=== PATIENT | female | born 1985 | race Caucasian/White ===

== ENCOUNTER → 2017-12-20 12:02 | Outpatient (CLI) | payer OTHER, SELFPAY ==
[2017-12-20 12:46] LABS: Hematocrit 33.8 % (37-47); Hemoglobin 10.6 g/dl (12.0-15.0); Mean Corp Hgb Conc 31.4 g/gl (32-36); Mean Corpuscular Volume 82.8 fL (81-99); Platelet Count 223 K/mm3 (150-450); RBC Distribution Width CV 16.3 % (11.6-14.6); RBC Distribution Width SD 48.4 fl (35.1-43.9); Red Blood Count 4.08 M/mm3 (4.2-5.4); White Blood Count 7.3 K/mm3 (4.4-11.0)
[2017-12-20 12:52] LABS: Scan Indicated on CBC? Y/N NO
== END ==
PROVIDERS: Family Provider Nurse Practitioner Family; PCP Nurse Practitioner Family; Visit Provider Nurse Practitioner Family
DX: D72.819 Decreased white blood cell count, unspecified (principal)
CPT/HCPCS: 36415; 85027

== ENCOUNTER 2018-05-23 14:33 | Emergency (ER) | payer OTHER, SELFPAY ==
[2018-05-23] VITALS (8 sets, daily range): BP systolic 111–124; BP diastolic 60–69; PULSE 60–94; RESP 16–18; TEMP 36.7–36.8; O2SAT 95–99; BMI 48.6
--- NOTE | 2018-05-23 15:17 | ED.VISSUMM ---
- ER Visit Summary Date of Service: 05/23/18 Chief Complaint: Generalized weakness History of Present Illness: The patient is a 32 F who presents 2 weeks after a gastric sleeve surgery performed in [place] who presents with generalized weakness. Patient states she is having a dry mouth, headache and dark urine for the last 4 days. She is almost passed out in the shower 3 times now. She is limited to 64 ounces of liquid a day and is not even been drinking that much. She is only having pur?ed food right now, and has not had anything to eat today. She felt chilled and shaky last night and thought she had a fever. She has nausea. No chest pain, shortness of breath, URI symptoms, vomiting, diarrhea or constipation. Patient denies alcohol or tobacco use. Physical Examination: Vital signs: afebrile, hemodynamically stable, no hypoxia on room air General: well nourished, well developed, BMI of 48, in no distress Skin: warm, dry, no rash, no pallor HEENT: normocephalic and atraumatic; PERRL, EOMI, dry mucous membranes Cardiovascular: regular rate and rhythm without murmurs, no peripheral edema, 2+ pulses all distal extremities Respiratory: No increased work of breathing, lungs are clear to auscultation bilaterally, no rales, rhonchi or wheezing Abdominal: Abdomen is soft, nontender with normoactive bowel sounds, no guarding or rebound, no masses, well-healed laparoscopic incision sites but no tenderness, induration or exudate at the sites MSK: Moves all extremities, no deformities, normal strength Neuro: Awake and alert, oriented ?4. No facial droop, sensation and motor function intact and symmetric Test Results: Abnormal Lab Results 05/23/18 05/23/18 05/23/18 15:20 15:20 15:24 WBC 5.8 RBC 4.10 L Hgb 11.0 L Hct 35.1 L MCV 85.6 MCH 26.8 L MCHC 31.3 L RDW 15.9 H RDW Differential 49.0 H Plt Count 170 MPV 11.0 Immature Gran % (Auto) 0.200 Neut % (Auto) 90.1 H Lymph % (Auto) 5.7 L [place] % (Auto) 3.6 Eos % (Auto) 0.2 Baso % (Auto) 0.2 Absolute Neuts (auto) 5.2 Absolute Lymphs (auto) 0.33 L Total Counted Not Reportable Differential Comment Platelet Estimate ADEQUATE RBC Morphology NORM C+C Sodium 137 Potassium 3.8 Chloride 103 Carbon Dioxide 24.0 Anion Gap 10 BUN 10 Creatinine 1.02 Estim Creat Clear Calc 64.89 Est GFR (MDRD) Af Amer 80 Est GFR (MDRD) Non-Af 66 BUN/Creatinine Ratio 9.8 L Glucose 94 Calcium 8.5 Total Bilirubin 0.50 Direct Bilirubin 0.22 AST 16 ALT 35 Alkaline Phosphatase 57 Total Protein 6.6 Albumin 3.1 L Globulin 3.5 Albumin/Globulin Ratio 0.9 Lipase 115 Urine Color Urine Clarity Urine pH Ur Specific [place] Urine Protein Urine Glucose (UA) Urine Ketones Urine Occult Blood Urine Nitrite Urine Bilirubin Urine Urobilinogen Ur Leukocyte Esterase Urine RBC Urine WBC Ur Squamous Epith Cells Urine Bacteria Urine Mucus Urine Test POC Glucose 96 05/23/18 15:34 WBC RBC Hgb Hct MCV MCH MCHC RDW RDW Differential Plt Count MPV Immature Gran % (Auto) Neut % (Auto) Lymph % (Auto) [place] % (Auto) Eos % (Auto) Baso % (Auto) Absolute Neuts (auto) Absolute Lymphs (auto) Total Counted Differential Comment Platelet Estimate RBC Morphology Sodium Potassium Chloride Carbon Dioxide Anion Gap BUN Creatinine Estim Creat Clear Calc Est GFR (MDRD) Af Amer Est GFR (MDRD) Non-Af BUN/Creatinine Ratio Glucose Calcium Total Bilirubin Direct Bilirubin AST ALT Alkaline Phosphatase Total Protein Albumin Globulin Albumin/Globulin Ratio Lipase Urine Color Yellow Urine Clarity Cloudy Urine pH 6.0 Ur Specific [place] 1.020 Urine Protein 30 H Urine Glucose (UA) Normal Urine Ketones 50 H Urine Occult Blood 150 H Urine Nitrite Negative Urine Bilirubin 3 H Urine Urobilinogen 4 H Ur Leukocyte Esterase 25 H Urine RBC 0-5 SEEN Urine WBC 0-5 SEEN Ur Squamous Epith Cells 0-5 SEEN Urine Bacteria 0 SEEN Urine Mucus 1+ Urine Test Negative POC Glucose Clinical Impression(s) from Imaging Studies Chest X-Ray 05/23/18 16:00 IMPRESSION: Normal x-ray examination of the chest. Electronically Signed: Jarred Low MD at 16:03 EST Tel [phone], Service support , Medications Given Discontinued Medications Acetaminophen (Tylenol Liquid) 650 mg PO NOW STA Stop: 18 15:16 Last Admin: 18 15:33 Dose: 650 mg Sodium Chloride () 1,000 mls @ 1,000 mls/hr IV .Q1H ONE Stop: 18 16:12 Last Admin: 18 15:33 Dose: 1,000 mls/hr Lactated Ringer's () 1,000 mls @ 999 mls/hr IV .Q1H1M RAMANDEEP Stop: 05/23/18 18:35 Last Admin: 05/23/18 18:11 Dose: 999 mls/hr Emergency Department Course and Treatment: Patient was given 1 L of normal saline for hydration. She was given Tylenol for her headache. Labs were performed that showed no electrolyte derangements, hepatic derangements, negative. No leukocytosis. Urine was concentrated and had ketones, consistent with dehydration. Patient was given additional liter of lactated Ringer's for further hydration. At time of reevaluation she was feeling better. We discussed the importance of staying hydrated and adjusting to the smaller volume of fluid and food she is able to intake. Patient is to return if any worsening of her condition. Discharged home. Treatment Plan: [] Disposition: [] Impression: Dehydration status post gastric sleeve surgery This note was generated with [employer] dictation software. It may contain incorrect words, spelling, and punctuation that were not noted in review of the chart prior to signing ED Disposition - Plan for ED Patient: Disposition: Home or Assisted Living Chief Complaint: General Illness Instructions: ED Dehydration Referrals: Melanie Arevalo, YAMILET-C [Primary Care Provider] - 1-2 Days if not improving Additional Instructions: Please make sure to drink plenty of fluids for hydration. If you continue to have difficulty drinking fluids and eating a sufficient amount, or if you continue to have symptoms, please follow-up within 1-2 days with your primary care provider for reevaluation. Continue to follow your postoperative instructions. If you have any worsening of your condition or any new concerning symptoms, please return immediately to the emergency department for another evaluation.
[2018-05-23 15:31] LABS: Bedside Glucose 96 mg/dL (70-110)
[2018-05-23] MEDS: Acetaminophen 650 MG/20 ML UDC PO (15:33)
[2018-05-23] MEDS: 0.9% Normal Saline 1,000 ML 1000 ML IV (15:33)
[2018-05-23 15:40] LABS: Bacteria 0 SEEN /hpf (None Seen)
[2018-05-23 15:54] LABS: Absolute Lymphocyte Count 0.33 X10^3/ul (0.83-4.51); Absolute Neutrophil Count 5.2 X10^3/uL (2.0-7.7); Basophil# 0.01 X10^3/uL; Basophil% 0.2 % (0-1); Eosinophil# 0.01 X10^3/uL; Eosinophils% 0.2 % (0-5); Hematocrit 35.1 % (37-47); Lymphocyte # 0.33 X10^3/ul (4.0); Lymphocyte % 5.7 % (19-41); Mean Corp Hgb Conc 31.3 g/gl (32-36); Mean Corpuscular Hgb 26.8 pg (27.0-32.0); Mean Corpuscular Volume 85.6 fL (81-99); Monocyte# 0.21 X10^3/uL; Monocyte% 3.6 % (0-10); Neutrophil # 5.23 X10^3/uL (2.7-7.7); Neutrophil % 90.1 % (47-70); Platelet Count 170 K/mm3 (150-450); RBC Distribution Width CV 15.9 % (11.6-14.6); White Blood Count 5.8 K/mm3 (4.4-11.0)
[2018-05-23 15:56] LABS: Differential Indicated SCAN CRITERIA MET; POSITIVE COUNT NO; POSITIVE DIFFERENTIAL YES; POSITIVE MORPHOLOGY NO
--- NOTE | 2018-05-23 16:00 | RAD_ITS ---
STUDY: X-RAY CHEST REASON FOR EXAM: Female, 32 years old. Dehydration. Syncopal episode. TECHNIQUE: PA and lateral views of the chest. COMPARISON: None. FINDINGS: The lungs are clear and expanded. There is no demonstrated pleural abnormality. Normal size heart. Normal mediastinum and christina. Normal visualized pulmonary arteries. Normal visualized aortic arch and descending thoracic aorta. Normal visualized thoracic spine. Normal visualized ribs, clavicles, and shoulders. There is no demonstrated abnormality of the visualized soft tissue structures of the upper abdomen. RAD/Chest PA and Lateral IMPRESSION: Normal x-ray examination of the chest. Electronically Signed: Jarred Low MD at 16:03 EST Tel [phone], Service support ,
[2018-05-23 16:02] LABS: Color, Urine Yellow (Yellow); Glucose, Dipstick Normal (Normal); Ketone-Dipstick 50 mg/dl (Negative); Leukocyte Esterase-Dipstick 25 /ul (Negative); Nitrite-Dipstick Negative (Negative); Occult Blood-Urine 150 /ul (Negative); Protein-Dipstick 30 mg/dl (Negative); Urine Bilirubin Dipstick 3 mg/dL (Negative); Urine Clarity Cloudy (Clear); Urine Urobilinogen 4 mg/dl (Normal)
[2018-05-23 16:03] LABS: Internal QC Validated? YES +Cl - CLEAR BKGD; Pregnancy, Urine Negative Negative
[2018-05-23 16:10] LABS: ALB/GLOB Ratio 0.9 RATIO (0.9-2.4); AST(SGOT) 16 U/L (15-37); Alanine Aminotransfer ALT/SGPT 35 U/L (13-56); Albumin, Serum 3.1 g/dL (3.2-5.0); Alkaline Phosphatase 57 U/L (45-117); Anion Gap 10 (5-15); BUN 10 mg/dL (7-18); BUN/Creat Ratio 9.8 RATIO (10-20); Bilirubin, Direct 0.22 mg/dL (0.00-0.30); Calcium,Total 8.5 mg/dL (8.5-10.1); Chloride 103 mmol/L (98-107); Creatinine, Serum 1.02 mg/dL (0.55-1.02); EST Glomerular Filtration Rate 66 mL/min (>60); Est Glom Filt Rate - Afr Amer 80 mL/min (>60); Estimated Creatinine Clearance 64.89 ml/min; Globulin 3.5 g/dL (2.2-4.2); Glucose 94 mg/dL (74-106); Lipase 115 U/L (73-393); Potassium 3.8 mmol/L (3.5-5.1); Protein, Total 6.6 g/dL (6.4-8.2); Sodium Level 137 mmol/L (136-145)
[2018-05-23 16:26] LABS: Mucous, Urine 1+ /hpf (<or=2+)
[2018-05-23 16:27] LABS: Red Blood Cells-Urine 0-5 SEEN /hpf (0-5); Squamous Epithelial Cells - UA 0-5 SEEN /hpf (5-10)
[2018-05-23 16:28] LABS: White Blood Cells 0-5 SEEN /hpf (0-5)
[2018-05-23 16:34] LABS: Platelet Estimate ADEQUATE (ADEQ); Red Cell Morphology NORM C+C NORMAL (NORM C&C)
[2018-05-23] MEDS: Lactated Ringers 1,000 ML 999 ML IV (18:11)
--- NOTE | 2018-05-23 19:28 | ED.DEP ---
ED Disposition - Plan for ED Patient: Disposition: Home or Assisted Living Chief Complaint: General Illness Instructions: ED Dehydration Referrals: Melanie Arevalo, YAMILET-C [Primary Care Provider] - 1-2 Days if not improving Additional Instructions: Please make sure to drink plenty of fluids for hydration. If you continue to have difficulty drinking fluids and eating a sufficient amount, or if you continue to have symptoms, please follow-up within 1-2 days with your primary care provider for reevaluation. Continue to follow your postoperative instructions. If you have any worsening of your condition or any new concerning symptoms, please return immediately to the emergency department for another evaluation.
--- OUTSIDE RECORDS SUMMARY | 2018-07-09 21:04 | XMS RPT_ITS | Continuity of Care Document ---
:1985 Author Organization [facility] Address [address] [place] [address] Care Team Providers Name Role Phone Unavailable Primary Care Physician Unavailable Insurance Providers Payer Name Policy Number Subscriber Name Relationship [employer] [id number] ARAVIND RIVAS SELF Chief Complaint and Reason for Visit Reason for Visit LEFT EYE ITCHINESS AND DRAINAGE Problems No problem information available. Medications Current Home Medications Medication Dose Units Route Directions Days/Qty Instructions Start Date Carvedilol 25 MG BY MOUTH TWICE A DAY (Coreg) 25 MG TAB W\ MEALS FLUOXETINE HCL 40 MG BY MOUTH EVERY MORNING (PROZAC) 40 MG CAP Levothyroxine 25 MCG MISCELLANEOUS Sodium (Levo-T) 25 MCG TAB Tobramycin 1 DROP OPHTHALMIC EVERY 4 HOURS 1 x5days 03/20/18 Sulfate (Tobramycin Ophthalmic Solution) 0.3 % JOSE E Social History Problem Response Recorded Date Tobacco: N 03/20/18 Drugs: N 03/20/18 Alcohol: SOCIAL 03/20/18 Query Response Start Date Stop Date Smoking history:* Never smoker Hospital Discharge Instructions No hospital discharge instructions. Plan of Care Discharge Date 03/20/18 Disposition HOME/SENIOR LIVING/[facility](01) Condition at Discharge Good Instructions/Education Provided DI for Conjunctivitis Prescriptions See Medications Section Additional Instructions/Education medication as prescribed warm compresses on 20 minutes, off 20 minutes f/u pcp in 2-3 days or sooner if not improved Functional Status No functional status results. Allergies, Adverse Reactions, Alerts No known allergies. Immunizations No Known History of Immunizations. Vital Signs Vital Reading Collection Date/Time Result Blood Pressure 03/20/18 2:32pm 147/98 Temperature 03/20/18 2:32pm 98.2 F Temperature Source 03/20/18 2:32pm Temporal Artery Respiratory Rate 03/20/18 2:32pm 18 Pulse Rate 03/20/18 2:32pm 71 Bedside Pulse Oximetry 03/20/18 2:32pm 99 Height 03/20/18 2:32pm 5 ft 3 in Height 03/20/18 2:32pm 160.02 cm Weight 03/20/18 2:32pm 271 lb Weight 03/20/18 2:32pm 122.9 kg Body Mass Index 03/20/18 2:32pm 48.0 kg/m2 Results No known relevant diagnostic tests, laboratory data and/or discharge summary. Procedures No Known History of Procedures. Encounters Encounter Location Arrival/Admit Date Discharge/Depart Date Attending Provider Departed [facility] 03/20/18 2:08pm 03/20/18 2:43pm [facility]
--- OUTSIDE RECORDS SUMMARY | 2018-07-09 21:04 | XMS RPT_ITS ---
:1985 Author Organization OHIP Care Team Providers Name Role Phone IRINA, MELANIE Admitting Unavailable IRINA, MELANIE Attending Unavailable IRINA, MELANIE Primary Care Unavailable IRINA, MELANIE Admitting Unavailable IRINA, MELANIE Attending Unavailable IRINA, MELANIE Primary Care Unavailable IRINA, MELANIE Admitting Unavailable IRINA, MELANIE Attending Unavailable IRINA, MELANIE Primary Care Unavailable Richard Matute Attending Unavailable Irina, Melanie Primary Care Unavailable Kimberly Navas Attending Unavailable Irina, Melanie Attending Unavailable Zwingle, Melanie Referring Unavailable Zwingle, Melanie Primary Care Unavailable PROBLEMS PROBLEMS No Problem Records FoundPROCEDURES PROCEDURES No Procedure Records FoundRESULTS RESULTS EMERGENCY DEPARTMENT Observed: 05/24/2018 Status: F Source: DRAPER SUMMARY 1:26 AM [facility] REPOSITORY [facility] Medical Records Department [address] [place] [address] Emergency Department Summary 05/23/18 1517 MR#: [id number] Acct: [id number] Name: ARAVIND RIVAS Rep #: [id number] : 1985 32 From: Kimberly Navas MD PCP: ALEX Trimble Status: DEP ER - ER Visit Summary Date of Service: 05/23/18 Chief Complaint: Generalized weakness History of Present Illness: The patient is a 32 F who presents 2 weeks after a gastric sleeve surgery performed in [place] who presents with generalized weakness. Patient states she is having a dry mouth, headache and dark urine for the last 4 days. She is almost passed out in the shower 3 times now. She is limited to 64 ounces of liquid a day and is not even been drinking that much. She is only having pur ed food right now, and has not had anything to eat today. She felt chilled and shaky last night and thought she had a fever. She has nausea. No chest pain, shortness of breath, URI symptoms, vomiting, diarrhea or constipation. Patient denies alcohol or tobacco use. Physical Examination: Vital signs: afebrile, hemodynamically stable, no hypoxia on room air General: well nourished, well developed, BMI of 48, in no distress Skin: warm, dry, no rash, no pallor HEENT: normocephalic and atraumatic; PERRL, EOMI, dry mucous membranes Cardiovascular: regular rate and rhythm without murmurs, no peripheral edema, 2+ pulses all distal extremities Respiratory: No increased work of breathing, lungs are clear to auscultation bilaterally, no rales, rhonchi or wheezing Abdominal: Abdomen is soft, nontender with normoactive bowel sounds, no guarding or rebound, no masses, well-healed laparoscopic incision sites but no tenderness, induration or exudate at the sites MSK: Moves all extremities, no deformities, normal strength Neuro: Awake and alert, oriented 4. No facial droop, sensation and motor function intact and symmetric Test Results: Abnormal Lab Results WBC 5.8 RBC 4.10 L WBC RBC Hgb Hct MCV MCH MCHC RDW RDW Differential Plt Count MPV Immature Gran % (Auto) Neut % (Auto) Lymph % (Auto) Ripley % (Auto) Clinical Impression(s) from Imaging Studies Chest X-Ray 05/23/18 16:00 IMPRESSION: Normal x-ray examination of the chest. Electronically Signed: Jarred Low MD at 16:03 EST Tel [phone], Service support , Medications Given Discontinued Medications Acetaminophen (Tylenol Liquid) 650 mg PO NOW STA Stop: 05/23/18 15:16 Last Admin: 05/23/18 15:33 Dose: 650 mg Sodium Chloride () 1,000 mls @ 1,000 mls/hr IV .Q1H ONE Stop: 05/23/18 16:12 Last Admin: 05/23/18 15:33 Dose: 1,000 mls/hr Lactated Ringer's () 1,000 mls @ 999 mls/hr IV .Q1H1M RAMANDEEP Stop: 05/23/18 18:35 Last Admin: 05/23/18 18:11 Dose: 999 mls/hr Emergency Department Course and Treatment: Patient was given 1 L of normal saline for hydration. She was given Tylenol for her headache. Labs were performed that showed no electrolyte derangements, hepatic derangements, negative. No leukocytosis. Urine was concentrated and had ketones, consistent with dehydration. Patient was given additional liter of lactated Ringer's for further hydration. At time of reevaluation she was feeling better. We discussed the importance of staying hydrated and adjusting to the smaller volume of fluid and food she is able to intake. Patient is to return if any worsening of her condition. Discharged home. Treatment Plan: [] Disposition: [] Impression: Dehydration status post gastric sleeve surgery This note was generated with CPG Soft dictation software. It may contain incorrect words, spelling, and punctuation that were not noted in review of the chart prior to signing ED Disposition - Plan for ED Patient: Disposition: Home or Assisted Living Chief Complaint: General Illness Instructions: ED Dehydration Referrals: Melanie Arevalo NP-C [Primary Care Provider] - 1-2 Days if not improving Additional Instructions: Please make sure to drink plenty of fluids for hydration. If you continue to have difficulty drinking fluids and eating a sufficient amount, or if you continue to have symptoms, please follow-up within 1-2 days with your primary care provider for reevaluation. Continue to follow your postoperative instructions. If you have any worsening of your condition or any new concerning symptoms, please return immediately to the emergency department for another evaluation. What to do if you have Problems For any increased pain, shortness of breath, bleeding, nausea or vomiting, chest pain, or any unexpected problems, contact your Primary Care Provider. Call [facility] ([phone]) or report to the closest Emergency Room. Call 911 if necessary. 05/24/18 0126 <Electronically signed by Kimberly Navas MD> Date Kimberly Navas MD Cosigner Signature (If Indicated): Date CC: ALEX Arevalo DISCHARGE INSTRUCTION Observed: 05/24/2018 Status: F Source: MASHA 12:31 AM [facility] REPOSITORY [facility] Medical Records Department [address] [place] [address] Discharge Instruction 05/23/18 1928 MR#: [id number] Acct: [id number] Name: ARAVIND RIVAS Rep #: [id number] : 1985 32 From: Kimberly Navas MD PCP: ALEX Trimble Status: [facility] ER ED Disposition - Plan for ED Patient: Disposition: Home or Assisted Living Chief Complaint: General Illness Instructions: ED Dehydration Referrals: Melanie Arevalo, MILLING MACHINE SET UP OPERATOR-C [Primary Care Provider] - 1-2 Days if not improving Additional Instructions: Please make sure to drink plenty of fluids for hydration. If you continue to have difficulty drinking fluids and eating a sufficient amount, or if you continue to have symptoms, please follow-up within 1-2 days with your primary care provider for reevaluation. Continue to follow your postoperative instructions. If you have any worsening of your condition or any new concerning symptoms, please return immediately to the emergency department for another evaluation. What to do if you have Problems For any increased pain, shortness of breath, bleeding, nausea or vomiting, chest pain, or any unexpected problems, contact your Primary Care Provider. Call [facility] ([phone]) or report to the closest Emergency Room. Call 911 if necessary. 05/24/18 0031 <Electronically signed by Kimberly Navas MD> Date Kimberly Navas MD Cosigner Signature (If Indicated): Date CC: MASK DESIGNER-KAYE Arevalo URINALYSIS, COMPLETE Collected: 05/23/2018 Status: C Source: DRAPER 3:34 PM [facility] REPOSITORY Order Comment: Order Date: 05/23/18 How was Urine Obtained? CLEAN CATCH TYPE CODE TESTS RESULT OUT OF RANGE REFERENCE UNITS LAB L400.3000 Yellow COLOR Normal Yellow LAB L400.3050 Clear Normal CLARITY Cloudy LAB L400.3200 Normal mg/dl Normal GLUCOSE, UR Normal LAB L400.3300 Negative mg/dL High BILIRUBIN URINE 3 Result Comment: COLOR OF URINE MAY AFFECT DIPSTICK RESULTS. LAB L400.3400 Negative mg/dl High KETONE UR 50 LAB L400.3465 1.002-1.030 Normal SP.GR. DIPSTX 1.020 LAB L400.3550 5.0 - 8.0 pH Normal UR 6.0 LAB L400.3600 Negative mg/dl High PROT DIPSTX 30 LAB L400.3700 Normal mg/dl High UROBILI 4 LAB L400.3750 Negative Normal NITRITE UR Negative LAB L400.3780 Negative /ul High OCCULT 150 BLOOD-UR LAB L400.3800 Negative /ul High LEUK ESTERASE 25 LAB L400.4050 0-5 /hpf Normal WBC 0-5 SEEN Result Comment: AMENDED REPORT 05/23/18 3128 WBC previously reported as: 0 SEEN /hpf LAB L400.4100 0-5 /hpf Normal RBC-UA 0-5 SEEN Result Comment: AMENDED REPORT 05/23/18 6418 RBC-UA previously reported as: 0 SEEN /hpf LAB L400.4150 5-10 /hpf Normal SQUAM EPI 0-5 SEEN Result Comment: AMENDED REPORT 05/23/181626 SQUAM EPI previously reported as: 0 SEEN /hpf LAB L400.4300 None Seen /hpf Normal BACTERIA 0 SEEN LAB L400.4350 <or=2+ /hpf Normal MUCUS, URINE 1+ Result Comment: AMENDED REPORT 05/23/181625 MUCUS, URINE previously reported as: 0 SEEN /hpf Performed By: #### L400.0001, L400.7600 #### [facility] [address] [place], [address] ,URINE Collected: 05/23/2018 Status: F Source: DRAPER 3:34 PM [facility] REPOSITORY Order Comment: Order Date: 05/23/18 How was Urine Obtained? CLEAN CATCH TYPE CODE TESTS RESULT OUT OF REFERENCE UNITS RANGE LAB L400.8000 Negative Normal HCGUQUAL Negative Result Comment: Very dilute urine specimens, as indicated by a low specific gravity, may not contain environmental marketing representative levels of hCG. If is still suspected, a first morning urine specimen should be collected 48 hours later and tested. Performed By: #### L400.0001, L400.7600 #### [facility] [address] [place], [address] BEDSIDE GLUCOSE Collected: 05/23/2018 Status: F Source: DRAPER 3:24 PM [facility] REPOSITORY TYPE CODE TESTS RESULT OUT OF RANGE REFERENCE UNITS LAB L501.080 70-110 mg/dL Normal BEDSIDE GLU 96 Result Comment: MANAGEMENT OF PATIENT CARE PER NURSING PROTOCOL Performed By: #### L501.080 #### [facility] Point of Care [address] [place] [address] CBC W/DIFF, AUTOMATED Collected: 05/23/2018 Status: F Source: DRAPER 3:20 PM [facility] REPOSITORY TYPE CODE TESTS RESULT OUT OF RANGE REFERENCE UNITS LAB L100.1000 4.4-11.0 K/mm3 Normal WBC 5.8 LAB L100.1200 4.2-5.4 M/mm3 Low RBC 4.10 LAB L100.1300 12.0-15.0 g/dl Low HGB 11.0 LAB L100.1400 37-47 % Low HCT 35.1 LAB L100.1500 81-99 fL Normal MCV 85.6 LAB L100.1600 27.0-32.0 pg Low MCH 26.8 LAB L100.1700 32-36 g/gl Low MCHC 31.3 LAB L100.1810 11.6-14.6 % High RDW CV 15.9 LAB L100.1820 35.1-43.9 fl High RDW SD 49.0 LAB L100.1900 150-450 K/mm3 Normal PLT 170 LAB L100.2000 6.2-12.0 fl Normal MPV 11.0 LAB L100.2100 47-70 % High NEUT% 90.1 LAB L100.2200 19-41 % Low LY% 5.7 LAB L100.2300 0-10 % Normal MONO% 3.6 LAB L100.2400 0-5 % Normal EO% 0.2 LAB L100.2500 0-1 % Normal BASO% 0.2 LAB L100.2550 0.0-0.9 % Normal IM GRAN % 0.200 Result Comment: IG% - Immature Granulocytes (promyelocytes, myelocytes and metamyelocytes) > 1% indicates that a LEFT SHIFT is Present. LAB L100.2620 2.0-7.7 X10 3/uL Normal Absolute Neut 5.2 LAB L100.2720 0.83-4.51 X10 3/ul Low Absolute Lymph 0.33 LAB L100.4500 SMEAR Normal COMMENT Result Comment: LYMPHOPENIA NOTED LAB L100.5500 ADEQ Normal PLT ADEQUATE EST LAB L100.7000 NORM C AND NORMAL C Normal RED NORM C+C CELL MORPH Performed By: #### L100.0100 #### [facility] [address] [place], [address] LIVER PROFILE Collected: 05/23/2018 Status: F Source: MASHA 3:20 PM [facility] REPOSITORY TYPE CODE TESTS RESULT OUT OF RANGE REFERENCE UNITS LAB L501.1500 6.4-8.2 g/dL Normal T PROT 6.6 LAB L501.1800 3.2-5.0 g/dL Low ALB 3.1 LAB L501.1950 2.2-4.2 g/dL Normal GLOB 3.5 LAB L501.4100 15-37 U/L Normal AST 16 LAB L501.4305 45-117 U/L Normal ALK P 57 LAB L501.4405 13-56 U/L Normal ALT 35 LAB L501.4600 0.20-1.00 mg/dL Normal T BILI 0.50 LAB L501.4700 0.00-0.30 mg/dL Normal D BILI 0.22 Performed By: #### L500.3400, L500.4050, L501.2450 #### [facility] [address] [place], [address] COMPREHENSIVE METABOLIC Collected: 05/23/2018 Status: F Source: [facility] 3:20 PM [facility] REPOSITORY TYPE CODE TESTS RESULT OUT OF RANGE REFERENCE UNITS LAB L501.0100 74-106 mg/dL Normal GLU 94 Result Comment: Please note revised GLUCOSE reference range effective 2017. LAB L501.1000 7-18 mg/dL Normal BUN 10 LAB L501.1100 0.55-1.02 mg/dL Normal CREAT,SERUM 1.02 Result Comment: The validity of the calculated GFR AND GFRAA in patients over 70 years has not been determined. Clinical correlation is essential. LAB L501.1110 >60 mL/min Normal EST GFR 66 Result Comment: Non- GFR Calc LAB L501.1115 >60 mL/min Normal EST GFR - AA 80 Result Comment: GFR Calc LAB L501.1255 ml/min Normal Estimated CRCL 64.89 LAB L501.1300 10-20 RATIO Low BUN/CRE 9.8 LAB L501.2000 0.9-2. RATIO Normal 4 A/G 0.9 LAB L501.2200 8.5-10 mg/dL Normal .1 CA 8.5 LAB L501.5300 136-14 mmol/L Normal 5 NA 137 LAB L501.5600 3.5-5. mmol/L Normal 1 K 3.8 LAB L501.5900 98-107 mmol/L Normal CL 103 LAB L501.6100 21.0-3 mmol/L Normal 2.0 CO2 24.0 LAB L501.6200 5-15 Normal GAP 10 Performed By: #### L500.3400, L500.4050, L501.2450 #### [facility] [address] [place] [place], [address] LIPASE Collected: 05/23/2018 Status: F Source: DRAPER 3:20 PM [facility] REPOSITORY TYPE CODE TESTS RESULT OUT OF RANGE REFERENCE UNITS LAB L501.2450 73-393 U/L Normal LIPASE 115 Performed By: #### L500.3400, L500.4050, L501.2450 #### [facility] [address] [place], [address] CHEST PA AND LATERAL Observed: 05/23/2018 Status: F Source: DRAPER 3:17 PM [facility] REPOSITORY [facility] Imaging Services [address] [place] [address] Chest PA and Lateral MR#: [id number] Acct: [id number] Name: ARAVIND RIVAS Rep #: [id number] : 1985 F 32 From: Jarred Low MD PCP: ALEX Trimble Status: REG ER Study: Chest PA and Lateral Date of Exam: 05/23/18 Exam# [id number] Ordering Dr: Kimberly Navas MD STUDY: X-RAY CHEST REASON FOR EXAM: Female, 32 years old. Dehydration. Syncopal episode. TECHNIQUE: PA and lateral views of the chest. COMPARISON: None. FINDINGS: The lungs are clear and expanded. There is no demonstrated pleural abnormality. Normal size heart. Normal mediastinum and christina. Normal visualized pulmonary arteries. Normal visualized aortic arch and descending thoracic aorta. Normal visualized thoracic spine. Normal visualized ribs, clavicles, and shoulders. There is no demonstrated abnormality of the visualized soft tissue structures of the upper abdomen. RAD/Chest PA and Lateral IMPRESSION: Normal x-ray examination of the chest. Electronically Signed: Jarred Low MD at 16:03 EST Tel [phone], Service support , CC: [facility] Melanie Arevalo; Kimberly Navas MD Chef De Cuisine: Signed CBC-COMPLETE BLOOD CNT Collected: 12/20/2017 Status: F Source: DRAPER NO DIFF 12:14 PM [facility] REPOSITORY TYPE CODE TESTS RESULT OUT OF RANGE REFERENCE UNITS LAB L100.1000 4.4-11.0 K/mm3 Normal WBC 7.3 LAB L100.1200 4.2-5.4 M/mm3 Low RBC 4.08 LAB L100.1300 12.0-15.0 g/dl Low HGB 10.6 LAB L100.1400 37-47 % Low HCT 33.8 LAB L100.1500 81-99 fL Normal MCV 82.8 LAB L100.1600 27.0-32.0 pg Low MCH 26.0 LAB L100.1700 32-36 g/gl Low MCHC 31.4 LAB L100.1810 11.6-14.6 % High RDW CV 16.3 LAB L100.1820 35.1-43.9 fl High RDW SD 48.4 LAB L100.1900 150-450 K/mm3 Normal PLT 223 LAB L100.2000 6.2-12.0 fl Normal MPV 10.0 Performed By: #### L100.0500 #### [facility] [address] [place], [place], [address] ROOFER GYPSUM CYTOLOGY REPORT Observed: 12/14/2017 Status: F Source: [place] [facility] 11:28 AM [facility] REPOSITORY . Pathology Reports Accession: Collected Date/Time: Received Date/Time: Pathologist: [id number] 12/14/2017 11:28 EDT 2017 18:00 EDT DO DANTE CARVALHO Stage [facility] Cytology Report SPECIMEN: Specimen Description: Liquid Prep Reflex ASCUS Specimen: Endocervical Screening or Diagnostic: Screening RELEVANT HISTORY: LMP: 12/04/2017 [id number] SPECIMEN ADEQUACY: SATISFACTORY FOR EVALUATION ENDOCERVICAL/TRANSFORMATIONAL ZONE COMPONENT PRESENT INTERPRETATION/RESULTS: ATYPICAL SQUAMOUS CELLS OF UNDETERMINED SIGNIFICANCE ADJUNCTIVE TESTING: HIGH RISK HPV DNA TESTING ORDERED, REPORT TO FOLLOW UNDER SEPARATE COVER Electronically Signed by Pathology report verified by [facility] Screened by: GL MES Electronically signed by DANTE CARVALHO DO Sign-Out Date: 12/22/2017 11:48 Performing Lab: [facility], [address] [place] [address] States Disclaimer The Pap test is a screening test for cervical cancer. As evidenced by published data, it is subject to both inherent false negative and false positive results. Your patient's results should be interpreted in context with pertinent clinical history including gynecological examination. Performed By: #### GYCR #### [place] [address] HPV Collected: 12/14/2017 Status: F Source: [facility] 11:28 AM [facility]OUND[facility] REPOSITORY Order Comment: Order placed by AP_HPV_REFLEX rule from [id number] TYPE CODE TESTS RESULT OUT OF RANGE REFERENCE UNITS LAB BFHPV(LOINC ) HPV Cervix Source LAB HPVINT(LOIN See Interp HPVN C) Unknown HPV Interp Result Comment: High Risk HPV Typing Positive: HPV Type 16 and additional high risk types detected (other than HPV Type 18) Specimen is positive for HPV type 16 DNA and the DNA of any one of, or combination of the following high risk HPV types: 31, 33, 35, 39, 45, 51, 52, 56, 58, 59, 66, 68. HPV type 18 DNA was undetectable or below the pre-set threshold. The luis High-Risk HPV DNA Test is not intended for use as a screening device for Pap normal women under age 30 and is not intended to substitute for regular Pap screening. The luis High-Risk HPV DNA Test is designed to augment existing methods for the detection of cervical disease and should be used in conjunction with clinical information derived from other diagnostic and screening tests, physical examinations and full medical history in accordance with appropriate patient management procedures. NOTE: A negative result does not preclude the presence of HPV infection because results depend on adequate specimen collection, absence of inhibitors and sufficient DNA to be detected. See Interp HPOS Performed By: #### HPV #### [place] [address] TSH Collected: 07/20/2017 Status: F Source: [facility]ERN[facility] 4:00 PM [facility] REPOSITORY TYPE CODE TESTS RESULT OUT OF RANGE REFERENCE UNITS LAB TSH(LOINC) 0.34 - 5.60 uIU/ml TSH 3.53 Performed By: #### [id number] #### [facility],[address] [place], [place] [id number] T4-FREE (FREE Collected: 07/20/2017 Status: F Source: IS[facility] WEST THYROXINE) 4:00 PM [facility] REPOSITORY TYPE CODE TESTS RESULT OUT OF RANGE REFERENCE UNITS LAB T4 0.61 - 1.12 ng/dl FREE(LOINC) T4 FREE 0.76 Result Comment: *SPECIMENS FROM PATIENTS WHO ARE UNDERGOING BIOTIN THERAPY AND/OR INGESTING BIOTIN SUPPLEMENTS MAY HAVE FALSE HIGH RESULTS. Performed By: #### [id number] #### [place] [id number] CHLAMYDIA & GC RNA TMA Collected: 07/20/2017 Status: F Source: ISH HERNÁNDEZ [QUEST] 4:00 PM [facility] REPOSITORY TYPE CODE TESTS RESULT OUT OF REFERENCE UNITS RANGE LAB CHLAMYDIA & GC RNA TMA [QUEST](LOINC) CHLAMYDIA & GC RNA TMA [QUEST] Result Comment: _CHLAMYDIA/NEISSERIA GONORRHOEAE RNA,TMA_ CHLAMYDIA TRACHOMATIS/NEISSERIA GONORRHOEAE TMA Reported: 07/23/2017 09:21 Status=F TEST RESULT FLAG RANGE UNITS C. TRACHOMATIS RNA, TMA Not Detected Not Detected 07/23/17.rflWillaCOMPLETE.AMRR .52564-1 N. GONORRHOEAE RNA, TMA Not Detected Not Detected 07/23/17.rfl.COMPLETE.AMRR .76296-6 This test was performed using the APTIMA COMBO2(R) Assay (GEN-PROBE(R)). The analytical performance characteristics of this assay, when used to test SurePath(R) specimens have been determined by [employer] (formerly known as [employer]). Test Performed by [facility] [employer] (formerly known as [employer]) [facility], [address] [place] [address] Qamar Fong M.D., Ph.D., Director of Laboratories , CLIA [id number] Performed By: #### [id number] #### [facility],[address] [place] [address] T3, FREE Collected: 07/20/2017 Status: F Source: [facility] 4:00 PM [facility] REPOSITORY TYPE CODE TESTS RESULT OUT OF RANGE REFERENCE UNITS LAB T3, FREE(LOINC) T3, FREE Result Comment: _T3, FREE_ T3, FREE Reported: 07/23/2017 21:40 Status=F TEST RESULT FLAG RANGE UNITS T3, FREE 2.6 2.3-4.2 pg/mL 07/23/17.2153.rfl.COMPLETE.AMRR .3051-0 Test Performed by [facility] [employer] (formerly known as [employer]) [facility], [address] [place] [address] Qamar Fong M.D., Ph.D., Director of Laboratories , CLIA [id number] Performed By: #### [id number] #### [facility],[address] [place] [id number] THYROID PEROXIDASE AB Collected: 07/20/2017 Status: F [facility] 4[facility]00 PM [facility] REPOSITORY TYPE CODE TESTS RESULT OUT OF REFERENCE UNITS RANGE LAB THYROID PEROXIDASE AB [QUEST](LOINC) THYROID PEROXIDASE AB [QUEST] Result Comment: _THYROID PEROXIDASE AB_ THYROID PEROXIDASE ANTIBODIES Reported: 07/24/2017 05:59 Status=F TEST RESULT FLAG RANGE UNITS THYROID PEROXIDASE ABS <1 <9 IU/mL 07/24/17.0611.rfl.COMPLETE.AMRR .8099-4 Test Performed by [facility], [facility], [address] [place] [address] Qamar Fong M.D., Ph.D., Director of [employer] , [facility] [id number] Performed By: #### [id number] #### [facility],[address] [place], [place] [id number] ALLERGIES ALLERGIES DATE TYPE / CODE NAME / CODE REACTION SEVERITY SOURCE 05/23/2018 Drug No Known Unknown [facility] Allergy/4160 Allergies/F0 Hospital Repository [address]234(SNOMED [id number](RXN CT) ORM) 03/20/2018 Drug NO KNOWN Unknown [facility] Allergy/4160 ALLERGY/NKA( [facility] [address](SNOMED RXNORM) Repository CT) ENCOUNTERS ENCOUNTERS ADMIT/DISCHARGE ACCOUNT ADMITTING ENCOUNTER LOCATION SOURCE NUMBER CLASS 05/23/2018/05/23/20 [id number] Emergency [place] [address] 9 [facility] ing:ED Repository 03/20/2018/03/20/20 [id number] Emergency [address] g:EX Repository 03/06/2018 [id number] IRINA, [facility] Repository 12/20/2017 [id number] Ambulatory [facility] ing:LAB.FUTUR Repository E 12/14/2017/12/15/19 [id number] IRINA, [address] Repository 07/20/2017/07/20/19 [id number] IRINA, [address] Repository PAYERS PAYERS ENCOUNTER GUARANTOR PAYER SUBSCRIBER SOURCE 05/23/2018September N [facility] Insurance:MEDICAL LEESONDOB: [facility] [id number] Repository [address] [place] [address] Number: [id number]: 330 [id number] [phone] (HP) Date:6836-09-55[place] [address] [place] [id number]: 05/23/2018 [facility]SELF PAY Hospital INSURANCEPolicy Repository Number: Effective Date:2018-05-23 03/20/2018 ARAVIND N [id number] Insurance:MEDICAL LEESONDOB: [facility] [id number] [facility]: [facility] Repository [address] [place] [address] [id number] [place], [address]Dfx: [phone]) Date:0613-08-19[place] [address] [phone] (HP) [place], [place] [address]GL: 03/06/2018September N Primary SEPTEMBER N [facility] LEESONDOB: Insurance:MEDICAL LEESONDOB: [facility] [id number] [facility] [id number] Repository [place] OUTPATIENTPolicy E [address] RDW[place] Wi Number: [address], [id number]: [phone]) [id number] [place] [phone] (HP) Date:Plan Name: 12/20/2017September N Primary SEPTEMBER N [facility]4465 Insurance:MEDICAL LEESONDOB: [facility] RDAPT [facility] [id number] Repository JORGE [place] Number: [id number]: [phone] [id number] [phone] (HP) Date:[id number] [address]AL: 12/20/2017 [facility] INSURANCEPoly Repository Number: Effective Date:2017-12-19 12/14/2017September N Primary SEPTEMBER N Ish RIVASDOB: Insurance:MEDICAL LEESONDOB: [facility] E [facility] [id number] [facility]ository [facility] [address] Number: [place] [id number] [place] [id number]: Date:Plan Name: (HP) 07/20/2017September N Primary SEPTEMBER N Ish RIVASDOB: Insurance:MEDICAL LEESONDOB: [facility] E [facility] [id number] Repository [facility] [address] Number: [id number], [place] [id number] [place] [id number]: Date:Plan Name: (HP)
== END 2018-05-23 19:48 | disposition home or self-care (01) ==
PROVIDERS: Emergency Provider Emergency Medicine; Family Provider Nurse Practitioner Family; PCP Nurse Practitioner Family
DX: E86.0 Dehydration (principal); Z98.84 Bariatric surgery status; E66.9 Obesity, unspecified; Z79.899 Other long term (current) drug therapy
CPT/HCPCS: 71046; 80053; 80076; 81001; 81025; 82962; 83690; 85025; 96360; 96361; 99284; J7030; A4216

== ENCOUNTER → 2018-07-30 16:16 | Outpatient (CLI) | payer OTHER, SELFPAY ==
[2018-05-23 14:39] VITALS: BMI 48.6
[2018-07-30 18:01] LABS: hCG Titer Quant., Serum 15536 mIU/mL (<9 non-preg)
== END ==
PROVIDERS: Family Provider Nurse Practitioner Family; PCP Nurse Practitioner Family; Visit Provider Obstetrics & Gynecology
DX: N91.1 Secondary amenorrhea (principal)
CPT/HCPCS: 36415; 84702

== ENCOUNTER → 2018-08-17 15:05 | Outpatient (CLI) | payer OTHER, SELFPAY ==
[2018-05-23 14:39] VITALS: BMI 48.6
[2018-08-17 15:36] LABS: Color, Urine Yellow (Yellow); Glucose, Dipstick Normal (Normal); Ketone-Dipstick 5 mg/dl (Negative); Leukocyte Esterase-Dipstick 100 /ul (Negative); Nitrite-Dipstick Positive (Negative); Occult Blood-Urine 25 /ul (Negative); Protein-Dipstick 30 mg/dl (Negative); Urine Clarity Sl. Cloudy (Clear); Urine Urobilinogen 1 mg/dl (Normal)
[2018-08-17 15:37] LABS: Absolute Lymphocyte Count 1.18 X10^3/ul (0.83-4.51); Absolute Neutrophil Count 7.8 X10^3/uL (2.0-7.7); Basophil# 0.01 X10^3/uL; Basophil% 0.1 % (0-1); Eosinophil# 0.08 X10^3/uL; Eosinophils% 0.8 % (0-5); Hematocrit 40.8 % (37-47); Hemoglobin 12.8 g/dl (12.0-15.0); Lymphocyte # 1.18 X10^3/ul (4.0); Lymphocyte % 12.5 % (19-41); Mean Corp Hgb Conc 31.4 g/gl (32-36); Mean Corpuscular Hgb 26.9 pg (27.0-32.0); Mean Corpuscular Volume 85.7 fL (81-99); Mean Platelet Vol. 11.6 fl (6.2-12.0); Monocyte# 0.41 X10^3/uL; Monocyte% 4.3 % (0-10); Neutrophil # 7.77 X10^3/uL (2.7-7.7); Neutrophil % 82.1 % (47-70); Platelet Count 221 K/mm3 (150-450); RBC Distribution Width CV 16.5 % (11.6-14.6); RBC Distribution Width SD 51.7 fl (35.1-43.9); Red Blood Count 4.76 M/mm3 (4.2-5.4); White Blood Count 9.5 K/mm3 (4.4-11.0)
[2018-08-17 15:39] LABS: Urine Bilirubin Dipstick 1 mg/dL (Negative)
[2018-08-17 15:45] LABS: POSITIVE COUNT NO; POSITIVE DIFFERENTIAL NO; POSITIVE MORPHOLOGY NO
[2018-08-17 16:19] LABS: Ferritin 35 ng/mL (8-252); Iron 46 ug/dL (50-170); Iron Binding Capacity,Total 325 ug/dL (250-450); Thyroid Stim Hormone (TSH) 2.35 uIU/mL (0.358-3.74)
[2018-08-17 16:59] LABS: HIV - WCH Non-Reactive (Nonreactive); Rubella IgG 87.6 IU/mL; Vitamin B12 818 pg/mL (211-911); Vitamin D,25 Hydroxy 33.6 ng/mL (29.95-100.01)
[2018-08-17 17:16] LABS: Amphetamine Urine VISTA NEGATIVE (<1000 ng/mL); Barbiturate Urine VISTA NEGATIVE (< 200 ng/mL); Benzodiazepine Urine VISTA NEGATIVE (< 200 ng/mL); Chlamydia Trachomatis by PCR Negative (Negative); Cocaine Urine VISTA NEGATIVE (< 300 ng/mL); Ecstacy Urine VISTA NEGATIVE (< 500 ng/mL); Methadone Urine VISTA NEGATIVE (< 300 ng/mL); Neisserai gonorrhoeae by PCR Negative (Negative); PCP Urine VISTA NEGATIVE (< 25 ng/mL); Probe Check PASS; Sample Adequacy Control PASS; Specimen Processing Control PASS; THC Urine VISTA NEGATIVE (< 50 ng/mL); Vista UDS pH Range 7
[2018-08-20 09:04] LABS: HEPATITIS B SURFACE AG Negative (Negative); Hep C Antibodies <0.1 s/co ratio (0.0-0.9)
[2018-08-23 20:17] LABS: Prenatal RPR NONREACTIVE (NONREACTIVE)
== END ==
LOC: WOBLAB 15:05
PROVIDERS: Family Provider Nurse Practitioner Family; PCP Nurse Practitioner Family; Visit Provider Obstetrics & Gynecology
DX: Z11.3 Encounter for screening for infections with a predominantly sexual mode of transmission (principal); O99.840 Bariatric surgery status complicating pregnancy, unspecified trimester; Z3A.00 Weeks of gestation of pregnancy not specified
CPT/HCPCS: 36415; 80307; 81002; 82306; 82607; 82728; 83540; 83550; 84443; 85025; 86703; 86762; 86803; 87340; 87491; 87591

== ENCOUNTER → 2018-09-11 15:09 | Outpatient (CLI) | payer OTHER, SELFPAY ==
[2018-05-23 14:39] VITALS: BMI 48.6
--- NOTE | 2018-09-11 | CER_PTH ---
PATIENT: ROB,SEPTEMBER N LOC: DAVIE U#:[id number] AGE/SX: 39/F ROOM: RE09/11/[address]: Dr. Lisa Fong MD : 1985 BED: DIS: SPEC #: [id number] RECD: 09/11/18 15:41 STATUS: KAVITA HEIKE #: [id number] MELITA: 09/11/18 00:[address]: Lisa Neumann DEPT: SURGICAL PATHOLOGY RECD BY: Jeronimo Mead ENTERED: 09/12/18 13:01 SP TYPE: CERV OTHR DR: Melanie Arevalo, GUN FITTER-C Tissues: A - Uterine cervix, NOS B - Uterine cervix, NOS Procedures: Surgery Specimen Level IV HEADER OPERATION: Colposcopy PRE-OP DIAGNOSIS: ASCUS, positive HPV, pap 12/2017, LMP 06/30/18 TISSUE SUBMITTED: A - Cervical biopsy 12 o'clock, B - Cervical biopsy 7 o'clock MICROSCOPIC DIAGNOSIS A. 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 Acute and chronic inflammation and decidual changes. See comment. B. Cervix, 7 o'clock, biopsy: Fragments of endocervical mucosa with acute and chronic inflammation and focal minimal decidual changes. Negative for dysplasia. SJ:rg 09/13/18 COMMENT A. Immunohistochemistry ([id number]) for surrogate HPV marker (p16) supports the above diagnosis. Case has been reviewed in consultation with Dr. Valle who concurs with the above diagnosis. IDC:CE MICROSCOPIC DESCRIPTION Slides are reviewed. GROSS DESCRIPTION A - Received in fixative is one container labeled with the patient's name and designated cervical biopsy 12 o'clock. The specimen consists of multiple irregular fragments of light pedersen soft tissue that in aggregate measure 0.5 x 0.4 x 0.1 cm. The specimen is totally submitted in one cassette. B - Received in fixative is one container labeled with the patient's name and designated cervical biopsy 7 o'clock. The specimen consists of multiple irregular fragments of light pedersen soft tissue that in aggregate measure 0.6 x 0.4 x 0.1 cm. The specimen is totally submitted in one cassette. / CELY:rhona 09/12/18 TC:5 CPT: 08038 x2
--- NOTE | 2018-09-11 | IMM_PTH ---
PATIENT: ROB,SEPTEMBER N LOC: DAVIE U#:[id number] AGE/SX: 39/F ROOM: RE09/11/[address]: Dr. Lisa Fong MD : 1985 BED: DIS: SPEC #: [id number] RECD: 09/13/18 10:10 STATUS: KAVITA BURROUGHS #: [id number] MELITA: 09/11/18 00:[address]: Lisa Neumann DEPT: IMMUNOHISTOCHEMISTRY RECD BY: Lina Bland ENTERED: 09/13/18 10:17 SP TYPE: IMMUNO OTHR DR: Melanie Arevalo, BORDER PATROL AGENT-C Tissues: A - Uterine cervix, NOS Procedures: p16 (initial) KI-67 (add) PHYSICIAN & INSTITUTION [place] [address] SPECIMEN INFORMATION: Tissue Source: A - Cervical biopsy 12 o'clock Clinical Info: ASCUS, positive HPV Specimen Number: [id number] CPT code: 20563, 14633 METHODOLOGY: Deparaffinized sections of prefer/formalin-fixed tissue or PAP/DQ stained slides are incubated with monoclonal/polyclonal antibodies/oligonucleotide probes. Localization is made via biotin free immunoperoxidase method. Appropriate controls are performed and reacted as expected. Results on target cell population are indicated in the following table: RESULTS: ANTIBODY / CLONE RESULT Block A P16 (E6H4) positive, focal and patchy Ki-67 (30-9) positive, low These tests were developed and their performance characteristics determined by [facility]. They may not have been cleared or approved by the U.S. Food and Drug Administration. The FDA has determined that such clearance or approval is not necessary. INTERPRETATION: A. Cervix at 12 o'clock, biopsy: Focal mild squamous dysplasia. SJ:rhona 09/13/18 Case has been reviewed in consultation with Dr. Valle who concurs with the above diagnosis. IDC:CE
== END ==
PROVIDERS: PCP Nurse Practitioner Family; Visit Provider Obstetrics & Gynecology
DX: R87.610 Atypical squamous cells of undetermined significance on cytologic smear of cervix (ASC-US) (principal); R87.810 Cervical high risk human papillomavirus (HPV) DNA test positive
CPT/HCPCS: 88305; 88341; 88342

== ENCOUNTER → 2018-11-12 | Outpatient (CLI) | payer MEDICAID, SELFPAY ==
[2018-05-23 14:39] VITALS: BMI 48.6
--- NOTE | 2018-11-12 09:07 | US_ITS ---
STUDY: ABDOMINAL ULTRASOUND - RIGHT UPPER QUADRANT REASON FOR VISIT: Female, 32 years old. Right upper quadrant pain TECHNIQUE: Ultrasound evaluation of the right upper quadrant was performed with real-time and static maurer-scale imaging. TECHNICAL QUALITY: Adequate. COMPARISON: None. FINDINGS: Liver: The liver measures 14.3 cm. There is normal echogenicity of the liver. The bile ducts are within normal limits. There is hepatic color flow. The direction of portal flow is hepatopetal. There is no demonstrated mass lesion. Gallbladder: Normal distended gallbladder. The gallbladder wall measures 2.8 mm. There is a negative sonographic Mancera's sign. There is no pericholecystic fluid. There are multiple gallstones with posterior acoustic shadowing and echogenic sludge.. Common Bile Duct (C.B.D.): The common bile duct measures 4 mm. Pancreas: Normal size of the head, body and tail of the pancreas. There is normal echogenicity of the pancreas. There is no demonstrated pancreatic mass or cyst. Right Kidney: Normal size of the right kidney. The right kidney measures 10 cm. Normal renal cortex. The right cortex measures 1.5 cm. There is no demonstrated renal mass or cyst. There is no right hydronephrosis. US/Gallbladder IMPRESSION: Multiple gallstones and echogenic sludge Negative Mancera's sign, no wall thickening or pericholecystic fluid Electronically Signed: Sree Gutierrez, at 18:05 EDT Tel , Service support ,
== END | disposition home or self-care (01) ==
LOC: US 09:03
PROVIDERS: Family Provider Nurse Practitioner Family; PCP Nurse Practitioner Family; Referring Provider Obstetrics & Gynecology; Visit Provider Obstetrics & Gynecology
DX: Z34.82 Encounter for supervision of other normal pregnancy, second trimester (principal); R10.11 Right upper quadrant pain
CPT/HCPCS: 76705

== ENCOUNTER → 2018-12-24 | Outpatient (CLI) | payer MEDICAID, SELFPAY ==
[2018-05-23 14:39] VITALS: BMI 48.6
[2018-12-24 16:23] LABS: Hematocrit 33.3 % (37-47); Mean Corpuscular Hgb 28.7 pg (27.0-32.0); Mean Corpuscular Volume 86.9 fL (81-99); Mean Platelet Vol. 11.2 fl (6.2-12.0); Platelet Count 187 K/mm3 (150-450); RBC Distribution Width CV 13.5 % (11.6-14.6); RBC Distribution Width SD 41.4 fl (35.1-43.9); Red Blood Count 3.83 M/mm3 (4.2-5.4); White Blood Count 8.9 K/mm3 (4.4-11.0)
[2018-12-24 16:47] LABS: Scan Indicated on CBC? Y/N NO
[2018-12-24 16:52] LABS: Hemoglobin A1c 5.1 % (4.2-6.3)
== END | disposition home or self-care (01) ==
LOC: WOBLAB 14:59
PROVIDERS: Visit Provider Obstetrics & Gynecology
DX: O26.892 Other specified pregnancy related conditions, second trimester (principal); R11.2 Nausea with vomiting, unspecified; Z3A.00 Weeks of gestation of pregnancy not specified
CPT/HCPCS: 36415; 83036; 85027

== ENCOUNTER 2019-01-31 03:28 | Outpatient (CLI) | payer MEDICAID, SELFPAY ==
[2018-05-23 14:39] VITALS: BMI 48.6
[2019-01-31 04:24] VITALS: BMI 38.2
[2019-01-31] MEDS: Dextrose 5%-Lactated Ringers 1,000 ML 125 ML IV ×2 (04:29→12:55)
[2019-01-31 04:43] LABS: Mucous, Urine 0 SEEN /hpf (<or=2+)
[2019-01-31 04:45] LABS: Absolute Lymphocyte Count 1.36 X10^3/uL (0.83-4.51); Absolute Neutrophil Count 6.6 X10^3/uL (2.0-7.7); Basophil# 0.01 X10^3/uL; Basophil% 0.1 % (0-1); Eosinophil# 0.09 X10^3/uL; Eosinophils% 1.1 % (0-5); Hematocrit 31.4 % (37-47); Lymphocyte # 1.36 X10^3/ul (4.0); Lymphocyte % 15.9 % (19-41); Mean Corp Hgb Conc 31.8 g/dL (32-36); Mean Corpuscular Hgb 28.2 pg (27.0-32.0); Mean Corpuscular Volume 88.7 fL (81-99); Mean Platelet Vol. 11.1 fl (6.2-12.0); Monocyte# 0.42 X10^3/uL; Monocyte% 4.9 % (0-10); NRBC Flagged by Analyzer 0 % (0-5); Neutrophil # 6.63 X10^3/uL (2.7-7.7); Neutrophil % 77.6 % (47-70); Platelet Count 152 K/mm3 (150-450); RBC Distribution Width CV 13.3 % (11.6-14.6); RBC Distribution Width SD 43.4 fl (35.1-43.9); Red Blood Count 3.54 M/mm3 (4.2-5.4); White Blood Count 8.5 K/mm3 (4.4-11.0)
[2019-01-31 04:56] LABS: Color, Urine Yellow (Yellow); Glucose, Dipstick Normal (Normal); Ketone-Dipstick Negative (Negative); Leukocyte Esterase-Dipstick 500 /ul (Negative); Nitrite-Dipstick Negative (Negative); Occult Blood-Urine 10 /ul (Negative); Protein-Dipstick Negative (Negative); Urine Bilirubin Dipstick Negative (Negative); Urine Clarity Sl. Cloudy (Clear); Urine Urobilinogen Normal (Normal)
[2019-01-31 05:02] LABS: Bacteria 1+ /hpf (None Seen); Red Blood Cells-Urine 0-5 SEEN /hpf (0-5); White Blood Cells 10-25 SEEN /hpf (0-5)
[2019-01-31 05:03] LABS: Squamous Epithelial Cells - UA 10-25 SEEN /hpf (5-10)
[2019-01-31 05:06] LABS: AST(SGOT) 19 U/L (15-37); Alanine Aminotransfer ALT/SGPT 15 U/L (13-56); Albumin, Serum 2.2 g/dL (3.2-5.0); Alkaline Phosphatase 117 U/L (45-117); Bilirubin, Direct 0.16 mg/dL (0.00-0.30); Globulin 3.8 g/dL (2.2-4.2)
[2019-01-31] MEDS: Cefazolin 1 GM/50 ML BAG IV (05:30)
[2019-01-31] MEDS: 0.9% Saline Lock 10 ML Syringe IV ×5 (05:33→06:31)
[2019-01-31] MEDS: proMETHazine 25 MG/ML Syringe 12.5 MG IV (05:57)
[2019-01-31 07:04] LABS: Amylase 28 U/L (25-115); Lipase 120 U/L (73-393)
--- NOTE | 2019-01-31 09:02 | OB.TRI.HP_ITS ---
- Problem List (1) 32 weeks gestation of Status: Acute (2) Gallstone Status: Acute History of Present Illness Date of Service: 01/31/19 Was patient seen by the physician?: Yes Reason For Visit: ABDOMINAL PAIN Final ELLEN: 03/27/19 Gestational age: 32 Weeks and 1 Days History of Present Illness: 33yo G1 @ 32 1/7wga with c/o severe RUQP and vomiting. Patient with hx RUQP and gallstones diagnosed on US 11/12/2018. She had been managing with dietary changes with mild to moderate relief. She started a choline supplement last night and several hours later had severe worsening of abdominal pain. Sharp with radiation to mid abdomen and back and emesis x 1. She was treated overnight with Demerol. She reports pain much improved this morning and nausea resolved. +FM, no leaking of fluid or vaginal bleeding. Allergies No Known Allergies Allergy (Verified 01/31/19 04:18) - Pertinent Past Medical History Medical History: Past Medical History (Last Updated 01/31/19 @ 09:06 by Lisa Morales MD) Abnormal Pap smear of cervix mild dysplasia 2018 Depression Surgical History: Past Surgical History (Last Updated 01/31/19 @ 09:06 by Lisa Morales MD) H/O bariatric surgery s/p gastric sleeve 05/07/18 History of colposcopy 2018 Laboratory Studies: Laboratory Tests 01/31/19 01/31/19 01/31/19 Range/Units 04:30 04:30 04:30 WBC 8.5 (4.4-11.0) K/mm3 RBC 3.54 L (4.2-5.4) M/mm3 Hgb 10.0 L (12.0-15.0) g/dL Hct 31.4 L (37-47) % MCV 88.7 (81-99) fL MCH 28.2 (27.0-32.0) pg MCHC 31.8 L (32-36) g/dL RDW Std Deviation 43.4 (35.1-43.9) fl RDW Coeff of Nadya 13.3 (11.6-14.6) % Plt Count 152 (150-450) K/mm3 MPV 11.1 (6.2-12.0) fl Immature Gran % (Auto) 0.400 (0.0-0.9) % Neut % (Auto) 77.6 H (47-70) % Lymph % (Auto) 15.9 L (19-41) % [place] % (Auto) 4.9 (0-10) % Eos % (Auto) 1.1 (0-5) % Baso % (Auto) 0.1 (0-1) % Absolute Neuts (auto) 6.6 (2.0-7.7) X10^3/uL Absolute Lymphs (auto) 1.36 (0.83-4.51) X10^3/uL Nucleated RBC % 0 (0-5) % Total Bilirubin 0.30 (0.20-1.00) mg/dL Direct Bilirubin 0.16 (0.00-0.30) mg/dL AST 19 (15-37) U/L ALT 15 (13-56) U/L Alkaline Phosphatase 117 (45-117) U/L Total Protein 6.0 L (6.4-8.2) g/dL Albumin 2.2 L (3.2-5.0) g/dL Globulin 3.8 (2.2-4.2) g/dL Amylase 28 (25-115) U/L Lipase 120 (73-393) U/L Urine Color (Yellow) Urine Clarity (Clear) Urine pH (5.0 - 8.0) Ur Specific [place] (1.002-1.030) Urine Protein (Negative) mg/dl Urine Glucose (UA) (Normal) mg/dl Urine Ketones (Negative) mg/dl Urine Occult Blood (Negative) /ul Urine Nitrite (Negative) Urine Bilirubin (Negative) mg/dL Urine Urobilinogen (Normal) mg/dl Ur Leukocyte Esterase (Negative) /ul Urine RBC (0-5) /hpf Urine WBC (0-5) /hpf Ur Squamous Epith Cells (5-10) /hpf Urine Bacteria (None Seen) /hpf Urine Mucus (<or=2+) /hpf 01/31/19 Range/Units 04:30 WBC (4.4-11.0) K/mm3 RBC (4.2-5.4) M/mm3 Hgb (12.0-15.0) g/dL Hct (37-47) % MCV (81-99) fL MCH (27.0-32.0) pg MCHC (32-36) g/dL RDW Std Deviation (35.1-43.9) fl RDW Coeff of Nadya (11.6-14.6) % Plt Count (150-450) K/mm3 MPV (6.2-12.0) fl Immature Gran % (Auto) (0.0-0.9) % Neut % (Auto) (47-70) % Lymph % (Auto) (19-41) % [place] % (Auto) (0-10) % Eos % (Auto) (0-5) % Baso % (Auto) (0-1) % Absolute Neuts (auto) (2.0-7.7) X10^3/uL Absolute Lymphs (auto) (0.83-4.51) X10^3/uL Nucleated RBC % (0-5) % Total Bilirubin (0.20-1.00) mg/dL Direct Bilirubin (0.00-0.30) mg/dL AST (15-37) U/L ALT (13-56) U/L Alkaline Phosphatase (45-117) U/L Total Protein (6.4-8.2) g/dL Albumin (3.2-5.0) g/dL Globulin (2.2-4.2) g/dL Amylase (25-115) U/L Lipase (73-393) U/L Urine Color Yellow (Yellow) Urine Clarity Sl. Cloudy (Clear) Urine pH 6.0 (5.0 - 8.0) Ur Specific [place] 1.020 (1.002-1.030) Urine Protein Negative (Negative) mg/dl Urine Glucose (UA) Normal (Normal) mg/dl Urine Ketones Negative (Negative) mg/dl Urine Occult Blood 10 H (Negative) /ul Urine Nitrite Negative (Negative) Urine Bilirubin Negative (Negative) mg/dL Urine Urobilinogen Normal (Normal) mg/dl Ur Leukocyte Esterase 500 H (Negative) /ul Urine RBC 0-5 SEEN (0-5) /hpf Urine WBC 10-25 SEEN (0-5) /hpf Ur Squamous Epith Cells 10-25 SEEN (5-10) /hpf Urine Bacteria 1+ (None Seen) /hpf Urine Mucus 0 SEEN (<or=2+) /hpf Review of Systems Constitutional: Reports: Weight Change. Denies: Chills, Fever Eyes: Denies: Vision Change Cardiovascular: Denies: Chest Pain Respiratory: Denies: Shortness of breath upon exertion Gastrointestinal: Reports: Abdominal Pain, Nausea, Vomiting Neurological: Denies: Headaches Physical Exam Vitals: AVSS General: Alert, Oriented x3, No apparent distress HEENT: Atraumatic, Normocephalic Cardiovascular: Regular rate, Regular Rhythm, Normal S1, Normal S2 Lungs: Clear to auscultation, Normal air movement, No rhonchi, No wheeze, No rales Abdomen: Soft, Non Tender, Non-Distended, Gravid Extremities:: No edema Neurological: Neuro grossly intact NST - FHR Rate Baby A Baseline: 130 Variability:: Moderate Accelerations:: 15 x 15 Decelerations:: None NST Reactive:: Yes FHR Category:: Category I Uterine Activity:: 0-1/10 min Impression/Plan 33yo G1 @ 32 1/7wga with hx gallstones and RUQP, Cat I FHR - status reassuring. -Labs reviewed - LFTs, amylase and lipase are normal. -Will consult general surgery for further evaluation and management given acute worsening of pain.
--- NOTE | 2019-01-31 13:36 | US_ITS ---
STUDY: ABDOMINAL ULTRASOUND - RIGHT UPPER QUADRANT REASON FOR VISIT: Female, 33 years old. Abdominal pain, gallstones TECHNIQUE: Ultrasound evaluation of the right upper quadrant was performed with real-time and static maurer-scale imaging. TECHNICAL QUALITY: Adequate. COMPARISON: 11/12/2018 FINDINGS: Liver: The liver measures 15.3 cm. There is normal echogenicity of the liver. The bile ducts are within normal limits. There is hepatic color flow. The direction of portal flow is hepatopetal. There is no demonstrated mass lesion. Gallbladder: Normal distended gallbladder. The gallbladder wall measures 2 mm. There is a positive sonographic Mancera's sign. There is no pericholecystic fluid. There are multiple echogenic structures within the gallbladder, consistent with multiple gallstones. Common Bile Duct (C.B.D.): The common bile duct measures 5 mm. Pancreas: Normal size of the head, body and tail of the pancreas. There is normal echogenicity of the pancreas. There is no demonstrated pancreatic mass or cyst. Right Kidney: Normal size of the right kidney. The right kidney measures 10.2 cm. Normal renal cortex. The right cortex measures 1.3 cm. There is no demonstrated renal mass or cyst. There is no right hydronephrosis. US/Gallbladder IMPRESSION: Cholelithiasis with positive sonographic Mancera sign possibly consistent with acute or chronic cholecystitis. Clinical correlation is recommended. Electronically Signed: Eran Barraza MD at 15:40 EDT Tel , Service support ,
--- NOTE | 2019-01-31 16:12 | CON.PCM_ITS ---
Problem List (1) Right upper quadrant abdominal pain affecting in third trimester Status: Acute (2) Cholelithiasis affecting in third trimester, antepartum Status: Acute Reason for Consult Date of Consultation: 01/31/19 History of Present Illness: The patient is a 33 year old F who is in her third trimester of her complaining of symptomatic cholelithiasis. She has been having sustained nausea vomiting and right upper quadrant abdominal pain requiring a hospitalization this week. Liver function tests have all been within normal limits. Patient has had a sleeve gastrectomy and is actually lost weight during her . Past Medical History Medical History: Medical History (Last Reviewed 01/31/19 @ 16:14 by César Pickens MD) Abnormal Pap smear of cervix R87.619 mild dysplasia 2019 Depression F32.9 Allergies No Known Allergies Allergy (Verified 01/31/19 04:18) Home Medications: Ambulatory Orders Medication Instructions Recorded Biotin 5 mg PO DAILY 05/23/18 Fluoxetine [Prozac] 40 mg PO DAILY 05/23/18 Omeprazole [Prilosec] 20 mg PO DAILY 05/23/18 Choline Bitartrate [Choline Sr] 300 mg PO DAILY 01/31/19 Surgical History: Surgical History (Last Reviewed 01/31/19 @ 16:14 by César Picknes MD) H/O bariatric surgery Z98.84 s/p gastric sleeve 05/07/18 History of colposcopy Z98.890 2019 Smoking Status: Never smoker Review of Systems Constitutional: Reports: Anorexia Gastrointestinal: Reports: Abdominal Pain, Nausea, Vomiting Patient Problems: Active and Suspected Problems (Last Updated 01/31/19 @ 09:06 by Lisa Fong MD) 32 weeks gestation of (Acute) Gallstone (Acute) Right upper quadrant abdominal pain affecting in third trimester (Acute) Cholelithiasis affecting in third trimester, antepartum (Acute) - Physical Exam General: Alert, Oriented x3 Abdomen: Tender - There are no rebound guarding or peritoneal signs identified. I cannot palpate her gallbladder. Weight: 216 lb 0.848 oz Body Mass Index (BMI) 38.2 Finger Stick Blood Glucose 96 Intake and Output for Last 24 Hours 01/29/19 01/30/19 01/31/19 23:59 23:59 23:59 Intake Total 1041.66 / 1041.66 Output Total 150 / 150 Balance 891.66 / 891.66 Laboratory Tests Past 24 Hrs 01/31/19 01/31/19 01/31/19 04:30 04:30 04:30 WBC 8.5 RBC 3.54 L Hgb 10.0 L Hct 31.4 L MCV 88.7 MCH 28.2 MCHC 31.8 L RDW Std Deviation 43.4 RDW Coeff of Nadya 13.3 Plt Count 152 MPV 11.1 Immature Gran % (Auto) 0.400 Neut % (Auto) 77.6 H Lymph % (Auto) 15.9 L [place] % (Auto) 4.9 Eos % (Auto) 1.1 Baso % (Auto) 0.1 Absolute Neuts (auto) 6.6 Absolute Lymphs (auto) 1.36 Nucleated RBC % 0 Total Bilirubin 0.30 Direct Bilirubin 0.16 AST 19 ALT 15 Alkaline Phosphatase 117 Total Protein 6.0 L Albumin 2.2 L Globulin 3.8 Amylase Lipase Urine Color Yellow Urine Clarity Sl. Cloudy Urine pH 6.0 Ur Specific [place] 1.020 Urine Protein Negative Urine Glucose (UA) Normal Urine Ketones Negative Urine Occult Blood 10 H Urine Nitrite Negative Urine Bilirubin Negative Urine Urobilinogen Normal Ur Leukocyte Esterase 500 H Urine RBC 0-5 SEEN Urine WBC 10-25 SEEN Ur Squamous Epith Cells 10-25 SEEN Urine Bacteria 1+ Urine Mucus 0 SEEN 01/31/19 04:30 WBC RBC Hgb Hct MCV MCH MCHC RDW Std Deviation RDW Coeff of Nadya Plt Count MPV Immature Gran % (Auto) Neut % (Auto) Lymph % (Auto) [place] % (Auto) Eos % (Auto) Baso % (Auto) Absolute Neuts (auto) Absolute Lymphs (auto) Nucleated RBC % Total Bilirubin Direct Bilirubin AST ALT Alkaline Phosphatase Total Protein Albumin Globulin Amylase 28 Lipase 120 Urine Color Urine Clarity Urine pH Ur Specific [place] Urine Protein Urine Glucose (UA) Urine Ketones Urine Occult Blood Urine Nitrite Urine Bilirubin Urine Urobilinogen Ur Leukocyte Esterase Urine RBC Urine WBC Ur Squamous Epith Cells Urine Bacteria Urine Mucus Assessment/Plan All Active Problems (Last Updated 01/31/19 @ 09:06 by Lisa Morales MD) 32 weeks gestation of (Acute) Gallstone (Acute) Right upper quadrant abdominal pain affecting in third trimester (Acute) Cholelithiasis affecting in third trimester, antepartum (Acute) The repeat gallbladder ultrasound shows gallstones but no signs of acute cholecystitis. There is no pericholecystic fluid in the common bile duct is normal in diameter. I have called and discussed this with Dr. Fong and I think the best thing to do at this point is to treat her symptomatically with either Zofran if this is tolerable or Phenergan suppositories and I will leave the pain medication to her. If this patient were to develop acute cholecystitis I think the best thing to do would be to place a cholecystostomy tube until she reached an appropriate time where she could deliver. I have suggested to the patient that immediately following delivery we should consider performing a laparoscopic cholecystectomy on her in the next 2 to 4 weeks .
--- NOTE | 2019-01-31 17:57 | DCINST_ITS ---
Discharge Diet: No Restrictions, - - Drink 2-3 Ensure plus shakes a day. Drink only 1 pure protein shake a day. Discharge Activity: Return to Normal Activity Call your doctor if you observe: Fever of 101 or Higher, Inability to have a bowel movement, Uncontrolled pain, - - Decreased movement, Contractions every 10 minutes or more often, Vaginal bleeding, or Leakage of fluid Allergies/Adverse Reactions: Allergies No Known Allergies Allergy (Verified 01/31/19 04:18) Medications to take at Discharge Biotin 5 mg PO DAILY 05/23/18 Fluoxetine [Prozac] 40 mg PO DAILY 05/23/18 Omeprazole [Prilosec] 20 mg PO DAILY 05/23/18 Choline Bitartrate [Choline Sr] 300 mg PO DAILY 01/31/19 Docusate Sodium [Colace] 100 mg PO BID PRN PRN #60 cap 01/31/19 Lactose-Reduced Food [Ensure Plus] 237 ml PO TID #90 liquid 01/31/19 Ondansetron [Zofran Odt] 4 mg PO Q8H PRN PRN #60 tab 01/31/19 Oxycodone [Oxyir] 5 mg PO Q6H PRN PRN 7 Days #10 tablet 01/31/19 The following prescriptions were given: Docusate Sodium [Colace] 100 mg PO BID PRN PRN #60 cap PRN Reason: Constipation Transmission Status: Pending to [facility] Lactose-Reduced Food [Ensure Plus] 237 ml PO TID #90 liquid Transmission Status: Pending to [facility] Oxycodone [Oxyir] 5 mg PO Q6H PRN PRN 7 Days #10 tablet PRN Reason: Severe Pain (6-10/10) [facility] Ondansetron [Zofran Odt] 4 mg PO Q8H PRN PRN #60 tab PRN Reason: Nausea [facility] Primary Care Physician: Melanie Arevalo NP-C [Primary Care Provider] - Test Results: Test results from this visit will be discussed in further detail at your follow- up appointment, if applicable. Please Follow Up With: Lisa Morales MD When: 5-7 days
--- NOTE | 2019-01-31 18:04 | PN_ITS ---
Progress Note PROGRESS NOTE Dr. Pickens's input appreciated. Patient VSS and exam unchanged. Reviewed with patient US findings and no intervention indicated at this time. She has not required additional IV pain medication since this morning. We discussed the following 1. Pain - offered outpatient management with opioid. Discussed risk for dependence and potential risk for withdrawal syndrome. Potential need for extended observation. Rx given. 2. Nutrition/weight loss - pt down 20 lb from prepregnancy weight and EFW c/w 10th% at US earlier this week. Rx Zofran for nausea, vomiting as needed. Pt agreeable to meal replacement - will supplement with Ensure Plus 2-3x/day and pt may take up to 1 Pure Protein shake a day (left over from post gastric sleeve procedure). Will obtain outpatient dietetics consultation if continued weight loss at next visit. Will f/u next week for visit and weight check. PTL, ROM, FM prec autions.
== END 2019-01-31 18:05 | disposition home or self-care (01) ==
LOC: WPOUT 03:52 → WP 03:53
PROVIDERS: Obstetrics & Gynecology; Family Provider Nurse Practitioner Family; PCP Nurse Practitioner Family; Visit Provider Obstetrics & Gynecology
DX: O26.893 Other specified pregnancy related conditions, third trimester (principal); K80.20 Calculus of gallbladder without cholecystitis without obstruction; O99.343 Other mental disorders complicating pregnancy, third trimester; F32.9 Major depressive disorder, single episode, unspecified; O99.843 Bariatric surgery status complicating pregnancy, third trimester; Z3A.32 32 weeks gestation of pregnancy
CPT/HCPCS: 96361 ×14; 96365; 96375 ×2; 96376; 36415; 59025; 59050; 76705; 80076; 81001; 82150; 83690; 85025; 87086; 87088; 94760; 99218; A4216; G0378

== ENCOUNTER 2019-02-14 16:53 | Outpatient (CLI) | payer MEDICAID, SELFPAY ==
[2019-02-14 16:57] LABS: Bacteria 0 SEEN /hpf (None Seen); Red Blood Cells-Urine 0 SEEN /hpf (0-5)
[2019-02-14 17:43] LABS: Color, Urine Yellow (Yellow); Glucose, Dipstick Normal (Normal); Ketone-Dipstick Negative (Negative); Leukocyte Esterase-Dipstick 500 /ul (Negative); Nitrite-Dipstick Negative (Negative); Occult Blood-Urine Negative /ul (Negative); Protein-Dipstick 15 mg/dl (Negative); Specific Gravity, Urine 1.025 (1.002-1.030); Urine Bilirubin Dipstick Negative (Negative); Urine Clarity Sl. Cloudy (Clear); Urine Urobilinogen Normal (Normal)
[2019-02-14 17:52] VITALS: BMI 38.4
[2019-02-14 17:57] LABS: Mucous, Urine 1+ /hpf (<or=2+); Squamous Epithelial Cells - UA 0-5 SEEN /hpf (5-10); White Blood Cells 10-25 SEEN /hpf (0-5)
[2019-02-14 17:58] LABS: Amorphous Sediment 1+ URATE
[2019-02-14] MEDS: 0.9% Normal Saline 1,000 ML 999 ML IV (18:20)
[2019-02-14] MEDS: 0.9% Normal Saline 1,000 ML 250 ML IV (19:51)
[2019-02-14 21:25] VITALS: RESP 18
--- NOTE | 2019-02-20 08:10 | OB.TRI.NOTE ---
History of Present Illness Date of Service: 02/14/19 Reason For Visit: FLUIDS Date of Service: 02/14/19 Final ELLEN: 03/27/19 Gestational age: 34 Weeks and 1 Days History of Present Illness: 33 yo female at 34 1/7 wk with known gallstones, presents for intermittent IV fluid hydration 2/2 N/V dehydration. Given 1.5 L fluid and tolerated po. Sent home after IV hydration. Allergies No Known Allergies Allergy (Verified 01/31/19 04:18) - Pertinent Past Medical History Medical History: Past Medical History (Last Reviewed 01/31/19 @ 16:14 by César Pickens MD) Abnormal Pap smear of cervix mild dysplasia 2019 Depression Surgical History: Past Surgical History (Last Reviewed 01/31/19 @ 16:14 by César Pickens MD) H/O bariatric surgery s/p gastric sleeve 05/07/18 History of colposcopy 2018 Laboratory Studies: Laboratory Tests 02/14/19 Range/Units 16:30 Urine Color Yellow (Yellow) Urine Clarity Sl. Cloudy (Clear) Urine pH 5.0 (5.0 - 8.0) Ur Specific [place] 1.025 (1.002-1.030) Urine Protein 15 H (Negative) mg/dl Urine Glucose (UA) Normal (Normal) mg/dl Urine Ketones Negative (Negative) mg/dl Urine Occult Blood Negative (Negative) /ul Urine Nitrite Negative (Negative) Urine Bilirubin Negative (Negative) mg/dL Urine Urobilinogen Normal (Normal) mg/dl Ur Leukocyte Esterase 500 H (Negative) /ul Urine RBC 0 SEEN (0-5) /hpf Urine WBC 10-25 SEEN (0-5) /hpf Ur Squamous Epith Cells 0-5 SEEN (5-10) /hpf Amorphous Sediment 1+ URATE Urine Bacteria 0 SEEN (None Seen) /hpf Urine Mucus 1+ (<or=2+) /hpf Physical Exam Vitals: Vital Signs Resp 18 02/14/19 21:25 NST - FHR Rate Baby A Baseline: 110-130s avg accels to 170s Variability:: Moderate Accelerations:: 15 x 15 Decelerations:: None NST Reactive:: Yes, Appropriate for gestational age FHR Category:: Category I Uterine Activity:: No UCs Impression/Plan 34 1/7 wk for IV fluids. Known gallstones and planning surgical intervention after prn IV fluids given Tolerated PO Home after Fluids. NST reactive, no UCs noted Keep next ofc appt as planned
== END 2019-02-14 21:25 | disposition home or self-care (01) ==
LOC: LABSPEC 16:54 → WPOUT 17:36 → WP 17:37
PROVIDERS: Obstetrics & Gynecology; Family Provider Obstetrics & Gynecology; PCP Obstetrics & Gynecology; Referring Provider Obstetrics & Gynecology; Visit Provider Obstetrics & Gynecology
DX: O26.893 Other specified pregnancy related conditions, third trimester (principal); E86.0 Dehydration; O99.613 Diseases of the digestive system complicating pregnancy, third trimester; K80.80 Other cholelithiasis without obstruction; Z3A.34 34 weeks gestation of pregnancy
CPT/HCPCS: 96360; 96361; 59025; 59050; 81001; 87086; 87088; 99218; J7030; G0378

== ENCOUNTER → 2019-02-27 17:21 | Outpatient (CLI) | payer MEDICAID, SELFPAY ==
[2019-02-14 17:52] VITALS: BMI 38.4
== END ==
PROVIDERS: Visit Provider Obstetrics & Gynecology
DX: Z36.85 Encounter for antenatal screening for Streptococcus B (principal)
CPT/HCPCS: 87081

== ENCOUNTER 2019-03-02 16:02 | Outpatient (CLI) | payer MEDICAID, SELFPAY ==
[2019-03-02 16:43] VITALS: BMI 38.7
--- NOTE | 2019-03-05 08:52 | OB.TRI.NOTE ---
History of Present Illness Was patient seen by the physician?: No Reason For Visit: NON STRESS TEST Date of Service: 03/02/19 Final ELLEN: 03/27/19 Gestational age: 36 Weeks and 6 Days History of Present Illness: IUGR Allergies No Known Allergies Allergy (Verified 01/31/19 04:18) - Pertinent Past Medical History Medical History: Past Medical History (Last Reviewed 01/31/19 @ 16:14 by César Pickens MD) Abnormal Pap smear of cervix mild dysplasia 2019 Depression Surgical History: Past Surgical History (Last Reviewed 01/31/19 @ 16:14 by César Pickens MD) H/O bariatric surgery s/p gastric sleeve 05/07/18 History of colposcopy 2019 Pertinent Past Medical History: Gallstones NST - FHR Rate Baby A Baseline: 125 Variability:: Moderate Accelerations:: 15 x 15 Decelerations:: None NST Reactive:: Yes FHR Category:: Category I Uterine Activity:: No contractions Impression/Plan Assessment IUGR Reactive NST Plan: RTO in 3 days for next NST
== END 2019-03-02 16:43 | disposition home or self-care (01) ==
LOC: WPOUT 16:13 → WP 16:13
PROVIDERS: Referring Provider Obstetrics & Gynecology; Visit Provider Obstetrics & Gynecology
DX: O36.5930 Maternal care for other known or suspected poor fetal growth, third trimester, not applicable or unspecified (principal); O99.343 Other mental disorders complicating pregnancy, third trimester; F32.9 Major depressive disorder, single episode, unspecified; Z3A.36 36 weeks gestation of pregnancy; Z98.84 Bariatric surgery status
CPT/HCPCS: 59025

== ENCOUNTER 2019-03-15 23:15 | Outpatient (CLI) | payer MEDICAID, SELFPAY ==
[2019-03-16] MEDS: 0.9% Normal Saline 1,000 ML 999 ML IV (00:11)
--- NOTE | 2019-03-16 00:30 | OB.TRI.HP_ITS ---
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 Hx gallstones this with intermittent painfulness. + FM, no leaking of fluid, vaginal bleeding. Reports occasional contractions. Allergies No Known Allergies Allergy (Verified 01/31/19 04:18) - Pertinent Past Medical History Medical History: Past Medical History (Last Reviewed 01/31/19 @ 16:14 by César Pickens MD) Abnormal Pap smear of cervix mild dysplasia 2019 Depression Surgical History: Past Surgical History (Last Reviewed 01/31/19 @ 16:14 by César Pickens MD) H/O bariatric surgery s/p gastric sleeve 05/07/18 History of colposcopy 2019 Review of Systems Constitutional: Denies: Chills, Fever Eyes: Denies: Vision Change Cardiovascular: Denies: Chest Pain Respiratory: Denies: Shortness of Breath Gastrointestinal: Reports: Abdominal Pain, Nausea, Vomiting. Denies: Constipation, Diarrhea Genitourinary: Denies: Dysuria Neurological: Denies: Headaches Physical Exam Vitals: AVSS General: Alert, Oriented x3, Cooperative, No apparent distress HEENT: Atraumatic, Normocephalic Cardiovascular: Regular rate, Regular Rhythm, Normal S1, Normal S2 Lungs: Clear to auscultation, Normal air movement Abdomen: Soft, Non-Distended, Gravid, - - + tenderness without rebound or guardi ng Extremities:: No edema Neurological: Neuro grossly intact Estimated gestational size: Appropriate for gestational size Cervix Dilation (cm): 1.5 Station: -3 Effacement (%): 50 - per RN RKirksey NST - FHR Rate Baby A Baseline: 140 Variability:: Moderate Accelerations:: 15 x 15 Decelerations:: None NST Reactive:: Yes FHR Category:: Category I Uterine Activity:: 0/10 Impression/Plan 33yo G1 @ 38 3/7wga with biliary colic, IUGR, Cat I FHR -Pain management, antiemetics -CBC, CMP, amylase, lipase, U/A -IV fluid hydration -Continuous monitoring -Plan for induction once colic resolved as pt is scheduled for medical induction later today
[2019-03-16] MEDS: 0.9% Normal Saline 1,000 ML 250 ML IV (00:43)
[2019-03-16 00:56] VITALS: BMI 38.9
[2019-03-16] MEDS: Morphine 2 MG/ML Syringe IV (01:08)
[2019-03-16] MEDS: Ondansetron 4 MG/2 ML Vial IV (01:08)
[2019-03-16 01:31] LABS: Absolute Lymphocyte Count 1.04 X10^3/uL (0.83-4.51); Absolute Neutrophil Count 8.1 X10^3/uL (2.0-7.7); Basophil# 0.02 X10^3/uL; Basophil% 0.2 % (0-1); Eosinophil# 0.07 X10^3/uL; Eosinophils% 0.7 % (0-5); Hemoglobin 10.4 g/dL (12.0-15.0); Lymphocyte # 1.04 X10^3/ul (4.0); Lymphocyte % 10.7 % (19-41); Mean Corp Hgb Conc 31.5 g/dL (32-36); Mean Corpuscular Hgb 27.3 pg (27.0-32.0); Mean Corpuscular Volume 86.6 fL (81-99); Mean Platelet Vol. 12.4 fl (6.2-12.0); Monocyte# 0.45 X10^3/uL; Monocyte% 4.6 % (0-10); NRBC Flagged by Analyzer 0 % (0-5); Neutrophil # 8.08 X10^3/uL (2.7-7.7); Neutrophil % 83.3 % (47-70); Platelet Count 165 K/mm3 (150-450); RBC Distribution Width CV 13.9 % (11.6-14.6); RBC Distribution Width SD 43.5 fl (35.1-43.9); Red Blood Count 3.81 M/mm3 (4.2-5.4); White Blood Count 9.7 K/mm3 (4.4-11.0)
[2019-03-16 01:34] LABS: Color, Urine Yellow (Yellow); Glucose, Dipstick Normal (Normal); Ketone-Dipstick 5 mg/dl (Negative); Leukocyte Esterase-Dipstick 100 /ul (Negative); Nitrite-Dipstick Negative (Negative); Occult Blood-Urine Negative /ul (Negative); Protein-Dipstick 30 mg/dl (Negative); Specific Gravity, Urine 1.025 (1.002-1.030); Urine Clarity Cloudy (Clear); Urine Urobilinogen 4 mg/dl (Normal)
[2019-03-16 01:35] LABS: Urine Bilirubin Dipstick 1 mg/dL (Negative)
[2019-03-16 01:49] LABS: ALB/GLOB Ratio 0.6 RATIO (0.9-2.4); AST(SGOT) 22 U/L (15-37); Alanine Aminotransfer ALT/SGPT 15 U/L (13-56); Albumin, Serum 2.4 g/dL (3.2-5.0); Alkaline Phosphatase 166 U/L (45-117); Amylase 39 U/L (25-115); Anion Gap 9 (5-15); BUN 11 mg/dL (7-18); BUN/Creat Ratio 14.9 RATIO (10-20); Calcium,Total 8.9 mg/dL (8.5-10.1); Chloride 107 mmol/L (98-107); Creatinine, Serum 0.74 mg/dL (0.55-1.02); EST Glomerular Filtration Rate 95 mL/min (>60); Est Glom Filt Rate - Afr Amer 115 mL/min (>60); Estimated Creatinine Clearance 88.61 ml/min; Globulin 4.1 g/dL (2.2-4.2); Glucose 79 mg/dL (74-106); Lipase 140 U/L (73-393); Potassium 3.6 mmol/L (3.5-5.1); Protein, Total 6.5 g/dL (6.4-8.2); Sodium Level 138 mmol/L (136-145)
--- NOTE | 2019-03-16 07:01 | OB.TRI.PN ---
Progress Notes Date of Service: 03/16/19 Progress Note: Abdominal pain resolved. No further vomiting or nausea. c/o heartburn. +FM. AVSS GEN - NAD, AAO x 3 ABD - soft, nontender, gravid FHR 135, moderate variability, + accelerations, + variable deceleration, some loss of contact TOCO 0-1/10 min A/P: 33yo G1 @ 38 3/7wga with biliary colic, IUGR - Cat I FHR -PO trial -Pepcid -d/c IV fluids Laboratory Studies: Laboratory Tests 03/16/19 03/16/19 03/16/19 Range/Units 01:00 00:11 00:11 WBC (4.4-11.0) K/mm3 RBC (4.2-5.4) M/mm3 Hgb (12.0-15.0) g/dL Hct (37-47) % MCV (81-99) fL MCH (27.0-32.0) pg MCHC (32-36) g/dL RDW Std Deviation (35.1-43.9) fl RDW Coeff of Nadya (11.6-14.6) % Plt Count (150-450) K/mm3 MPV (6.2-12.0) fl Immature Gran % (Auto) (0.0-0.9) % Neut % (Auto) (47-70) % Lymph % (Auto) (19-41) % Loving % (Auto) (0-10) % Eos % (Auto) (0-5) % Baso % (Auto) (0-1) % Absolute Neuts (auto) (2.0-7.7) X10^3/uL Absolute Lymphs (auto) (0.83-4.51) X10^3/uL Nucleated RBC % (0-5) % Sodium 138 (136-145) mmol/L Potassium 3.6 (3.5-5.1) mmol/L Chloride 107 (98-107) mmol/L Carbon Dioxide 22.0 (21.0-32.0) mmol/L Anion Gap 9 (5-15) BUN 11 (7-18) mg/dL Creatinine 0.74 (0.55-1.02) mg/dL Estim Creat Clear Calc 88.61 ml/min Est GFR (MDRD) Af Amer 115 (>60) mL/min Est GFR (MDRD) Non-Af 95 (>60) mL/min BUN/Creatinine Ratio 14.9 (10-20) RATIO Glucose 79 (74-106) mg/dL Calcium 8.9 (8.5-10.1) mg/dL Total Bilirubin 0.30 (0.20-1.00) mg/dL AST 22 (15-37) U/L ALT 15 (13-56) U/L Alkaline Phosphatase 166 H (45-117) U/L Total Protein 6.5 (6.4-8.2) g/dL Albumin 2.4 L (3.2-5.0) g/dL Globulin 4.1 (2.2-4.2) g/dL Albumin/Globulin Ratio 0.6 L (0.9-2.4) RATIO Amylase 39 (25-115) U/L Lipase 140 (73-393) U/L Urine Color Yellow (Yellow) Urine Clarity Cloudy (Clear) Urine pH 5.0 (5.0 - 8.0) Ur Specific [place] 1.025 (1.002-1.030) Urine Protein 30 H (Negative) mg/dl Urine Glucose (UA) Normal (Normal) mg/dl Urine Ketones 5 H (Negative) mg/dl Urine Occult Blood Negative (Negative) /ul Urine Nitrite Negative (Negative) Urine Bilirubin 1 H (Negative) mg/dL Urine Urobilinogen 4 H (Normal) mg/dl Ur Leukocyte Esterase 100 H (Negative) /ul Blood Type O POSITIVE Antibody Screen NEGATIVE 03/16/19 Range/Units 00:11 WBC 9.7 (4.4-11.0) K/mm3 RBC 3.81 L (4.2-5.4) M/mm3 Hgb 10.4 L (12.0-15.0) g/dL Hct 33.0 L (37-47) % MCV 86.6 (81-99) fL MCH 27.3 (27.0-32.0) pg MCHC 31.5 L (32-36) g/dL RDW Std Deviation 43.5 (35.1-43.9) fl RDW Coeff of Nadya 13.9 (11.6-14.6) % Plt Count 165 (150-450) K/mm3 MPV 12.4 H (6.2-12.0) fl Immature Gran % (Auto) 0.500 (0.0-0.9) % Neut % (Auto) 83.3 H (47-70) % Lymph % (Auto) 10.7 L (19-41) % Loving % (Auto) 4.6 (0-10) % Eos % (Auto) 0.7 (0-5) % Baso % (Auto) 0.2 (0-1) % Absolute Neuts (auto) 8.1 H (2.0-7.7) X10^3/uL Absolute Lymphs (auto) 1.04 (0.83-4.51) X10^3/uL Nucleated RBC % 0 (0-5) % Sodium (136-145) mmol/L Potassium (3.5-5.1) mmol/L Chloride (98-107) mmol/L Carbon Dioxide (21.0-32.0) mmol/L Anion Gap (5-15) BUN (7-18) mg/dL Creatinine (0.55-1.02) mg/dL Estim Creat Clear Calc ml/min Est GFR (MDRD) Af Amer (>60) mL/min Est GFR (MDRD) Non-Af (>60) mL/min BUN/Creatinine Ratio (10-20) RATIO Glucose (74-106) mg/dL Calcium (8.5-10.1) mg/dL Total Bilirubin (0.20-1.00) mg/dL AST (15-37) U/L ALT (13-56) U/L Alkaline Phosphatase (45-117) U/L Total Protein (6.4-8.2) g/dL Albumin (3.2-5.0) g/dL Globulin (2.2-4.2) g/dL Albumin/Globulin Ratio (0.9-2.4) RATIO Amylase (25-115) U/L Lipase (73-393) U/L Urine Color (Yellow) Urine Clarity (Clear) Urine pH (5.0 - 8.0) Ur Specific [place] (1.002-1.030) Urine Protein (Negative) mg/dl Urine Glucose (UA) (Normal) mg/dl Urine Ketones (Negative) mg/dl Urine Occult Blood (Negative) /ul Urine Nitrite (Negative) Urine Bilirubin (Negative) mg/dL Urine Urobilinogen (Normal) mg/dl Ur Leukocyte Esterase (Negative) /ul Blood Type Antibody Screen - Problem List (1) Gallstone Status: Acute Qualifiers: Cholecystitis presence: without cholecystitis
[2019-03-16] MEDS: Famotidine 20 MG Tablet PO (09:05)
== END 2019-03-16 12:30 | disposition home or self-care (01) ==
LOC: WPOUT 23:59 → WP 03-16 00:49
PROVIDERS: Referring Provider Obstetrics & Gynecology; Visit Provider Obstetrics & Gynecology
DX: O26.613 Liver and biliary tract disorders in pregnancy, third trimester (principal); K80.50 Calculus of bile duct without cholangitis or cholecystitis without obstruction; O36.5930 Maternal care for other known or suspected poor fetal growth, third trimester, not applicable or unspecified; O99.843 Bariatric surgery status complicating pregnancy, third trimester; O99.343 Other mental disorders complicating pregnancy, third trimester; F32.9 Major depressive disorder, single episode, unspecified; Z3A.38 38 weeks gestation of pregnancy
CPT/HCPCS: 96361 ×3; 96374; 96375; 59025; 59050; 80053; 81002; 82150; 83690; 85025; 86850; 86900; 86901; 99218; J7030; G0378; J2405

== ENCOUNTER 2019-03-16 23:25 | Inpatient (IN) | payer MEDICAID, SELFPAY ==
[2019-03-16 00:56] VITALS: BMI 38.9
[2019-03-16] MEDS: Lactated Ringers 1,000 ML 50 ML IV (23:43)
[2019-03-16 23:46] VITALS: BMI 39.6
[2019-03-17 00:15] LABS: Absolute Neutrophil Count 5.3 X10^3/uL (2.0-7.7); Basophil# 0.02 X10^3/uL; Basophil% 0.3 % (0-1); Eosinophil# 0.09 X10^3/uL; Eosinophils% 1.2 % (0-5); Hematocrit 31.7 % (37-47); Hemoglobin 10.1 g/dL (12.0-15.0); Lymphocyte % 22.3 % (19-41); Mean Corp Hgb Conc 31.9 g/dL (32-36); Mean Corpuscular Hgb 27.2 pg (27.0-32.0); Mean Corpuscular Volume 85.4 fL (81-99); Mean Platelet Vol. 11.9 fl (6.2-12.0); Monocyte# 0.54 X10^3/uL; Monocyte% 7.1 % (0-10); NRBC Flagged by Analyzer 0 % (0-5); Neutrophil # 5.25 X10^3/uL (2.7-7.7); Neutrophil % 68.8 % (47-70); Platelet Count 170 K/mm3 (150-450); RBC Distribution Width CV 14.1 % (11.6-14.6); RBC Distribution Width SD 43.6 fl (35.1-43.9); Red Blood Count 3.71 M/mm3 (4.2-5.4); White Blood Count 7.6 K/mm3 (4.4-11.0)
[2019-03-17] MEDS: Oxytocin 30 units/NS 500 ml 30 UNITS/500 ML IV.SOLN IV (00:42)
[2019-03-17] MEDS: miSOPROStol 25 MCG TABLET PO (06:24)
--- NOTE | 2019-03-17 10:00 | PCM.HP.OB ---
- Problem List (1) IUGR (intrauterine growth restriction) Status: Acute (2) 38 weeks gestation of Status: Acute (3) Cholelithiasis affecting in third trimester, antepartum Status: Acute History Date of Admission: 03/16/19 Final ELLEN: 03/27/19 Final ELLEN Source: US <20 weeks Gestational age: 38 Weeks and 4 Days History of this : This is a 33 year-old, G [1], P [], at 38 4/7 weeks gestational age with hx IUGR, prior bariatric surgery presenting for induction of labor. 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 Induction was started this morning with misoprostol. Patient reports regularly contractions, + FM. No leaking of fluid or vaginal bleeding. Medical History: Medical History (Last Reviewed 01/31/19 @ 16:14 by César Pickens MD) Abnormal Pap smear of cervix R87.619 mild dysplasia 2019 Depression F32.9 Surgical History: Surgical History (Last Reviewed 01/31/19 @ 16:14 by César Pickens MD) H/O bariatric surgery Z98.84 s/p gastric sleeve 05/07/18 History of colposcopy Z98.890 2019 Allergies No Known Allergies Allergy (Verified 03/16/19 23:50) Home Medications: Home Medications Fluoxetine [Prozac] 40 mg PO DAILY 05/23/18 Docusate Sodium [Colace] 100 mg PO BID PRN PRN #60 cap 01/31/19 Famotidine [Pepcid] 20 mg PO DAILY 03/16/19 Vit,Calc76/Iron/Folic [Pnv 29-1 Tablet] 1 ea PO DAILY 03/16/19 Smoking Status: Never smoker Alcohol: None Number of Fetus(es): 1 NST - FHR Rate Baby A Baseline: 135 Variability:: Moderate Accelerations:: 15 x 15 Decelerations:: None NST Reactive:: Yes FHR Category:: Category I Uterine Activity:: 3/10 min History Past Pregnancies: Past Pregnancies Delivery Date Name GA/Weeks Outcome Route Weight Gender Labor Length Anesthesia Delivery Location Provider FOB Labs: Mom[facility] Labs & Results 03/16/19 03/16/19 23:43 23:43 WBC 7.6 RBC 3.71 L Hgb 10.1 L Hct 31.7 L MCV 85.4 MCH 27.2 MCHC 31.9 L RDW Std Deviation 43.6 RDW Coeff of Nadya 14.1 Plt Count 170 MPV 11.9 Immature Gran % (Auto) 0.300 Neut % (Auto) 68.8 Lymph % (Auto) 22.3 [place] % (Auto) 7.1 Eos % (Auto) 1.2 Baso % (Auto) 0.3 Absolute Neuts (auto) 5.3 Absolute Lymphs (auto) 1.70 Nucleated RBC % 0 Blood Type O POSITIVE Antibody Screen NEGATIVE Course Did the patient receive Yes care? Labs Blood Type: O RH: POSITIVE RPR/VDRL/Syphilis Nonreactive Rubella status Immune HbSAg Negative Date Done: 08/17/18 Chlamydia Negative Gonorrhea Negative HIV/AIDS Non-Reactive Group B Strep: Negative Current Obstetrical History Gestational Diabetes No Incompetent Cervix No Infertility No IUGR Yes Macrosomia No Hypertension/Pre-eclampsia No Placenta Previa/Abruption No PTL/PROM No Uterine anomaly No Oligohydramnios No Polyhydramnios No Multiple gestation No Past Medical History Asthma No Diabetes No Hypertension Yes: prior to gastric sleeve surgery; pt no longer taking maintenance medication Heart disease No Mitral valve prolapse No Neurologic/Seizure disorder/ No Migraines Kidney disease No Liver disease No Varicosities No Clotting disorders/Hx of DVT No Thyroid Dysfunction No Other medical diseases No Psychiatric disorders Yes: depression/anxiety Major trauma No Abnormal PAP smear Yes: 2019 per pt report Sleep apnea No Mammogram in the last 2 years No Social History Marital Status: SINGLE Alleged father Harry Hx Smoking No Smoking Status Never smoker How long have you used none substances (years)? Expected Infant Delivery Method: Spontaneous Vaginal Review of Systems Constitutional: Denies: Anorexia, Chills, Fever Cardiovascular: Denies: Chest Pain, Edema Respiratory: Denies: Shortness of Breath Gastrointestinal: Denies: Abdominal Pain, Constipation, Diarrhea, Nausea, Vomiting Gynecological: Reports: - - + contractions Physical Exam Vitals: AVSS General: Alert, Oriented x3, Cooperative, No apparent distress HEENT: Atraumatic, Normocephalic Cardiovascular: Regular rate, Regular Rhythm, Normal S1, Normal S2 Lungs: Clear to auscultation, Normal air movement Abdomen: Soft, Non Tender, Non-Distended Extremities:: No edema Neurological: Neuro grossly intact VOICE SYSTEMS ENGINEER: Normal external genitalia Estimated gestational size: Appropriate for gestational size Presentation: Cephalic Cervix Dilation (cm): 4 Station: -2 Effacement (%): 59 Assessment/Plan All Active Problems (Last Reviewed 01/31/19 @ 16:14 by César Pickens MD) Cholelithiasis affecting in third trimester, antepartum (Acute) IUGR (intrauterine growth restriction) (Acute) 38 weeks gestation of (Acute) This is a 33 year-old, G [1], P [0], at 38 4/7 weeks gestational age. 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
[2019-03-17] MEDS: 0.9% Saline Lock 10 ML Syringe IV ×2 (10:24→19:43)
[2019-03-17] MEDS: Lactated Ringers 500 ML 999 ML IV (10:25)
[2019-03-17] MEDS: fentaNYL-bupivacaine (epidural) 100 ML BAG EPIDURAL (11:30)
--- NOTE | 2019-03-17 16:00 | PLAC_PTH ---
PATIENT: ROBSEPTEMBER N LOC: [facility] U#:[id number] AGE/SX: 33/F ROOM: [facility] RE03/16/[address]: Dr. Lisa Fong MD : 1985 BED: 1 DIS: 03/19/2019 SPEC #: [id number] RECD: 03/17/19 19:09 STATUS: KAVITA HEIKE #: [id number] MELITA: 03/17/19 16:[address]: Lisa Neumann DEPT: SURGICAL PATHOLOGY RECD BY: Carol Gerber Tissues: Placenta, NOS Procedures: Surgery Specimen Level V HEADER OPERATION: Vaginal delivery PRE-OP DIAGNOSIS: IUGR TISSUE SUBMITTED: Placenta MICROSCOPIC DIAGNOSIS Melvin placenta (462 gm): Umbilical cord - trivascular with no inflammation. Placental membranes - no pathologic change. Placental disc - mild Trina-Yfn change. AM:rhona 03/19/19 MICROSCOPIC DESCRIPTION Slides are reviewed. GROSS DESCRIPTION SPECIMEN: PLACENTA / CLINICAL INFORMATION: A. Weight: 2.62 kg B. Gestational Age: 38 weeks C. Sex: Male PLACENTAL WEIGHT (POST FIXATION): 462 gm PLACENTAL DIMENSIONS: 19 x 17 x 3.5 cm PLACENTAL SHAPE: Heart-shaped PLACENTAL WEIGHT FOR GESTATIONAL AGE: Within 10-99th percentile MEMBRANES - Present A. Insertion: Marginal B. Site of rupture from edge: 4 cm from edge of placental disc C. Color of membrane: Lopze-maurer D. Abnormalities: None UMBILICAL CORD - Present A. Color: Lopez-maurer B. Insertion: Central C. Length: 35 cm D. Diameter: 1 cm E. Number of vessels: Three F. Abnormalities: None PLACENTAL DISC - Present A. Color of surface: Lopez-maurer B. surface abnormalities: None C. Maternal cotyledons: Intact with minimal tears D. Attached retro placental clot: No clot E. Cut surface: Dark red and spongy F. Lesions: None G. Separate clot: Absent SECTIONS SUBMITTED: 1. Membrane roll 2. Cord, maternal end 3. Cord, end 4. Placental disc, and maternal surfaces 5. Placental disc, and maternal surfaces 6. Placental disc, and maternal surfaces CELY:rhona 03/18/19 TC:5 CPT: 81557
[2019-03-17] MEDS: Oxytocin 30 units/NS 500 ml 30 UNITS/500 ML IV.SOLN 334 UNITS IV (16:15)
--- NOTE | 2019-03-17 16:59 | OP.PCM_ITS ---
Problem List (1) IUGR (intrauterine growth restriction) Status: Acute (2) 38 weeks gestation of Status: Acute (3) Cholelithiasis affecting in third trimester, antepartum Status: Acute Vaginal Delivery Maternal Presentation: Medically Indicated Induction IUGR Method of Induction: Pitocin, Amniotomy, Cytotec Amniotic Membrane Rupture Type: Artificial Rupture of Membrane time: 03/17/19 0916h Amniotic Fluid Description: Clear Final ELLEN: 03/27/19 Final ELLEN Source: US <20 weeks Gestational age: 38 Weeks and 4 Days [place] doctor who attended delivery (if requested by OB): Liza Chakraborty Date of Procedure: 03/17/19 Pre-Operative Diagnosis: 38 4/7wga, IUGR Post-Operative Diagnosis: 38 4/7wga, IUGR Surgery/ Procedure Performed: Spontaneous Vaginal Delivery Anesthesiologist: Tiffany Phillips Type of Anesthesia: Epidural Description of Procedure: Patient was FD/+2 station and pushed +3 station in OA. FHR was Category II FHR with deepening variable decelerations. I advised vacuum delivery and reviewed associated risks versus risks of section. Patient opted to proceed. The Kiwi cap was placed at the flexion point and 500mmHg suction applied at 1654h. With 3 pulls and no pop-offs the crowned. The suction was released. The infant mouth and nares were suctioned on the perineum and a nuchal cord was reduced. A vigorous male delivered through a second nuchal cord. The was placed on the maternal abdomen and further attended by nursing personnel. Cord blood and gases were obtained. The placenta delivered spontaneously and appeared intact on inspection. A 2nd degree perineal laceration with right sulcal extension was repaired with 3-0 Vicryl with excellent hemostasis. Sponge and needle counts were correct x 2. Presentation: Vertex Placental Delivery Description: Spontaneous Placenta Disposition: [facility] Cord Vessel Description: 3 Vessels Nuchal Cord Compression: With compression Cord Gases drawn per routine: ABG, VBG Cord Entanglement: Around neck x 2, loose Drain: Cullen to straight drain Estimated Blood Loss: 350 ml A gender: Male (1 minute): 9 (5 minute): 9 Laceration: Midline, Perineal Extension/lac, Vaginal Extension/lac, 2nd degree Medications given after delivery: IV Pitocin Complications: None
[2019-03-17 19:45] VITALS: BP 145/82; PULSE 79; RESP 16; TEMP 36.5; O2SAT 100
[2019-03-17 23:15] VITALS: BP 128/70; PULSE 72; RESP 16; TEMP 37.6
[2019-03-18] MEDS: Acetaminophen 500 MG Tablet 1000 MG PO ×3 (00:27→19:02)
[2019-03-18 03:30] VITALS: BP 136/84; PULSE 77; RESP 20; TEMP 36.2
[2019-03-18] MEDS: Ibuprofen 600 MG Tablet PO (05:59)
--- NOTE | 2019-03-18 07:50 | PCM.PN.OB ---
Patient Problems: Active and Suspected Problems (Last Reviewed 01/31/19 @ 16:14 by César Pickens MD) IUGR (intrauterine growth restriction) (Acute) 38 weeks gestation of (Acute) Subjective: Reports significant vaginal and perineal pain overnight. No walking difficulties, pain greatest with sitting motion, but persists while sitting. She reports she should not take NSAIDs since gastric sleeve surgery. No other complaints. Inquires about d/c today. Objective: AVSS - Physical Exam General: Alert, Oriented x3, Cooperative, No apparent distress HEENT: Atraumatic, Normocephalic Lungs: Normal air movement Cardiovascular: Regular rate, Regular Rhythm, Normal S1, Normal S2 Abdomen: Soft, Non Tender, Non-Distended, - - Fundus firm and nontender, lochia; perineum; perineal repair well approximated without swelling, lichenous process present Extremities: No edema, No Calf Tenderness Neurological: Neuro grossly intact Psych/Mental Status: Normal Affect, Appropriate, Alert and oriented to time, place, person, mood and affect Vital Signs Temp Pulse Resp BP Pulse Ox 97.2 F L 77 20 H 136/84 H 100 03/18/19 03:30 03/18/19 03:30 03/18/19 03:30 03/18/19 03:30 03/17/19 19:45 Oxygen Delivery Method Room Air Weight: 101.5 kg Body Mass Index (BMI) 39.6 Finger Stick Blood Glucose 96 Intake and Output for Last 24 Hours 03/16/19 03/17/19 03/18/19 23:59 23:59 23:59 Intake Total 2480.23 / 2480.23 250 / 250 Output Total 300 / 300 250 / 250 Balance 2180.23 / 2180.23 0 / 0 Medical Necessity - Tobacco Use Smoking Status: Never smoker Assessment/Plan All Active Problems (Last Reviewed 01/31/19 @ 16:14 by César Pickens MD) Cholelithiasis affecting in third trimester, antepartum (Acute) IUGR (intrauterine growth restriction) (Acute) 38 weeks gestation of (Acute) This is a 33 year-old, PPD#1 s/p VAVD doing well. -Rh positive -Rubella immune -Routine care -d/c Ibuprofen, start Oxycodone as needed for pain -Bottlefeeding
[2019-03-18 08:00] VITALS: BP 130/76; PULSE 70; RESP 18; TEMP 36.5
[2019-03-18] MEDS: Senna/Docusate Sodium 1 Tablet PO (08:45)
[2019-03-18] MEDS: oxyCODONE 5 MG Tablet PO ×3 (08:45→20:41)
[2019-03-18] MEDS: Dibucaine 30 GM Tube 1 APPLIC TOPICAL (08:46)
[2019-03-18] MEDS: FLUoxetine 20 MG Capsule 40 MG PO (10:09)
[2019-03-18] MEDS: Famotidine 20 MG Tablet PO (10:39)
[2019-03-18 12:34] VITALS: BP 109/65; PULSE 70; RESP 16; TEMP 36.9
[2019-03-18 15:44] LABS: Hematocrit 26.8 % (37-47); Hemoglobin 8.5 g/dL (12.0-15.0); Mean Corp Hgb Conc 31.7 g/dL (32-36); Mean Corpuscular Hgb 27.4 pg (27.0-32.0); Mean Corpuscular Volume 86.5 fL (81-99); Mean Platelet Vol. 10.6 fl (6.2-12.0); Platelet Count 135 K/mm3 (150-450); RBC Distribution Width CV 14.1 % (11.6-14.6); White Blood Count 7.8 K/mm3 (4.4-11.0)
[2019-03-18 15:59] VITALS: BP 125/79; PULSE 88; RESP 14
[2019-03-18 20:00] VITALS: BP 105/72; PULSE 60; RESP 16; TEMP 36.6
[2019-03-18] MEDS: Vitamins A and D Ointment 1 APPLIC TOPICAL (22:34)
[2019-03-18] MEDS: Ketorolac 30 MG/ML Syringe IM (22:35)
--- NOTE | 2019-03-18 22:46 | NURSING ---
2154 called Hilda GAMING HOST and infomed of oxyir pt took and tylenol and pain rated still 4-5. cannot take po motrin or aleve due to gastic bypass surgery. using dibucaine and dermablast prn. she is going to discuss with dr. lane and call back.
--- NOTE | 2019-03-18 22:49 | NURSING ---
2235 given toradol IM as ordered and given Aand D ointment to use on rectal area, may use instead of dibucaine, or may alternate with dibucaine as pt decides wich is most comfortable.
[2019-03-19 01:37] VITALS: BP 126/80; PULSE 68; RESP 16; TEMP 36.6
[2019-03-19] MEDS: oxyCODONE 5 MG Tablet PO (03:00)
[2019-03-19] MEDS: Acetaminophen 500 MG Tablet 1000 MG PO (06:43)
[2019-03-19 07:55] VITALS: BP 134/63; PULSE 82; RESP 18; TEMP 36.1
[2019-03-19] MEDS: Ketorolac 30 MG/ML Syringe IM (08:08)
--- NOTE | 2019-03-19 08:54 | DCINST_ITS ---
Discharge Diet: No Restrictions Discharge Activity: May Drive, May Shower, May Take a Tub Bath Return to work on:: 04/29/19 May resume sexual activity in: 4-6 weeks Additional Activity Instructions:: Nothing in the vagina for 4-6 weeks. You may return to work/school in 6 weeks. Additional Instructions: If you experience any of the following, contact your healthcare provider. * Bleeding that soaks a pad every hour for 2 hours * Fever 100.4 or higher * Unrelieved abdominal pain * Problems urinating (including inability to urinate or burning while urinating). * Visual changes * Severe headache * Flu-like symptoms * Pain or redness in one of both of your breasts * Pain, warmth, tenderness or swelling in your legs, especially the calf area * Frequent nausea and vomiting * Symptoms of depression or anxiety If you experience any of the following, call 911 or go to the nearest Emergency Room. * Chest pain * Problems breathing * Seizure activity * Partial or complete paralysis of a body part, slurred speech, weakness or drooping of the face, or a sudden inability to walk or hold your balance Allergies/Adverse Reactions: Allergies No Known Allergies Allergy (Verified 03/16/19 23:50) Medications to take at Discharge Fluoxetine [Prozac] 40 mg PO DAILY 05/23/18 Docusate Sodium [Colace] 100 mg PO BID PRN PRN #60 cap 01/31/19 Famotidine [Pepcid] 20 mg PO DAILY 03/16/19 Vit,Calc76/Iron/Folic [Pnv 29-1 Tablet] 1 ea PO DAILY 03/16/19 Please Follow Up With: Lisa Morales MD - [phone] When: Call to make an appointment with your doctor in 6 weeks. If you had elevated Blood Pressure or 4th degree laceration you will need to be seen in 2 weeks. Test Results: Test results from this visit will be discussed in further detail at your follow- up appointment, if applicable. Proposed Discharge Date: 03/19/19
--- NOTE | 2019-03-19 08:55 | PCM.PN.OB ---
Patient Problems: Active and Suspected Problems (Last Reviewed 01/31/19 @ 16:14 by César Pickens MD) IUGR (intrauterine growth restriction) (Acute) 38 weeks gestation of (Acute) Subjective: PPD#2 Doing ok. Pain at bottom is better after Toradol and would like another dose. Otherwise A and D ointment more soothing at present than the spray and other steroid cream. No concerns voiced. Showered just prior to my time of rounding (approx 7:30 am) - Physical Exam General: Alert, Oriented x3, Cooperative, No apparent distress HEENT: Atraumatic, EOMI Neck: Supple Psych/Mental Status: Normal Affect Vital Signs Temp Pulse Resp BP Pulse Ox 97.8 F 68 16 126/80 H 100 03/19/19 01:37 03/19/19 01:37 03/19/19 01:37 03/19/19 01:37 03/17/19 19:45 Oxygen Delivery Method Room Air Weight: 101.5 kg Body Mass Index (BMI) 39.6 Finger Stick Blood Glucose 96 Intake and Output for Last 24 Hours 03/17/19 03/18/19 03/19/19 23:59 23:59 23:59 Intake Total 2480.23 / 2480.23 250 / 250 Output Total 300 / 300 550 / 550 Balance 2180.23 / 2180.23 -300 / -300 Laboratory Tests Past 24 Hrs 03/18/19 15:35 WBC 7.8 RBC 3.10 L Hgb 8.5 L Hct 26.8 L MCV 86.5 MCH 27.4 MCHC 31.7 L RDW Std Deviation 43.0 RDW Coeff of Nadya 14.1 Plt Count 135 L MPV 10.6 Medical Necessity - Tobacco Use Smoking Status: Never smoker Assessment/Plan All Active Problems (Last Reviewed 01/31/19 @ 16:14 by César Pickens MD) Cholelithiasis affecting in third trimester, antepartum (Acute) IUGR (intrauterine growth restriction) (Acute) 38 weeks gestation of (Acute) PPD#2 Stable Perineal discomfort improved with A and D ointment, and dose of Toradol. Requested second IM toradol today. Then home. Dischg home RTO in 6 wk for pp check, prn sooner.
[2019-03-19] MEDS: Senna/Docusate Sodium 1 Tablet PO (10:45)
[2019-03-19] MEDS: FLUoxetine 20 MG Capsule 40 MG PO (10:45)
--- NOTE | 2019-03-19 10:46 | CASEMGMT ---
Social Work Assessment Labor and Delivery Unit Date of Referral: 03.19.2019 Time of Referral: 0126 Referred By: Dr. Fournier Date of Intervention: 03.19.2019 Time of Intervention: approximately [id number] Reason for Referral: maternal anxiety, depression, and resources History obtained from: medical records and mother of baby (KELSIE) Yamilet Ellis; MOB's mother Sheryl Ellis also present for part of conversation. Household composition: MOB currently lives with her parents and reports home situation as safe and adequate. Will take baby boy to this home. Patient's parent/guardian status: MOB is a single female age 33. FOB is reported to be a [employer], , age not discussed. MOB and FOB are not together, and were involved for only a short time when MOB became . Per MOB's report, FOB has not been supportive to MOB during this , has shown no interest in the baby. FOB reportedly has other children. [place] baby is the first for MOB. Baby is named Celio Ellis, born on 03.17.2019. MOB denies any safety concerns with the FOB. Medical History: MOB is G1, Po to 1 after delivering Celio. care started at 11 weeks. MOB admits finding out about was stressful, as the time was not what MOB had planned. KELSIE underwent gastric sleeve surgery in and became shortly after. MOB reports the as difficult in the sense that MOB just had gastric surgery, had to watch what was eating but making sure that eating enough for the baby's growth, and then MOB developed gallstone issues. Concern for baby with IUGR at the end of . Baby born at 38.4 weeks, weighed 5 pounds 12 ounces. Apgars 9 and 9 at 1 and 5 minutes of life. Educational Status: MOB graduated high school, is able to read, write, and understand what is read. 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 MOB reports lost bid for unemployment. Currently financially being supported and helped by MOB's parents. MOB plans to look for employment in the future. Supplies: MOB reports to have needed supplies, had been buying things for the baby before loss of job. MOB reports to have clothing, diapers, wipes, car seat, several safe sleep space options, bottles, and one can of formula to get started. Childcare/Caregiver(s): MOB and then help from family. Transportation: no issues. Programs/Agencies Involved: [facility] for medical, did apply for food card. MOB has WIC. Declines [facility] referral at this time. Counselor Alejandra Key at [facility], appointment set for 04.01.2019. Appointment set at same agency with psychiatry for 04.11.2019. Children Services/Legal Issues: Denies. Behavioral Health Issues: Mental Health History: MOB reports long history of depression and anxiety, with anxiety being more prominent for MOB. MOB reports was diagnosed with PTSD by former counselor Dr. Naiza Arreguin related to a cousin being involved in a murder-suicide. MOB reports was not witness to the actual incident but the PTSD symptoms arose after watching the after effects within the family. MOB denies any history of thoughts/plans/intent/attempts regarding suicide. No thoughts of harm to others reported. MOB was treated with 60 mg of Prozac prior to , weaned self off and then later in the restarted by the OBGYN at 20mg dosing. MOB was active with psychologist Nazia Arreguin until MOB lost insurance and is now going to [facility]. EDPS Depression Screening: prenatally MOB scored at 15 at for NOB appointment in 09.11.2018. This date, MOB's score a 18 (see attached link) as to home MOB has bee feeling over the last week. MOB reporting that feels an immense relief of anxiety and mood symptoms now that the baby is born. Asked MOB to answer the questions again, just based on feelings since and score is a 9. Substance Use History: MOB denies and prescribed or illicit substance use issues. Drinks about 1-2 times a year, but not during . Does not smoke tobacco. Family History: No discussed. Drug Screens: Negative maternal drug screen on 08.27.2018. Family/Social Stressors: KELSIE had gastric surgery in April of 2018, involved for a brief time when conceived due to contraception not working, went off of antidepressant medication that had been on since about 2016 due to concerns that baby would be affected, no support or involvement by the FOB after he found out about , KELSIE lost her job of 18 years, lost insurance so had to move back in with her parents after being independent for years as well as lost insurance so had to change therapist because of loss of insurance. Support Systems: MOB reports to have good friends. MOB identifies being close with her mother and sister. MOB reports to feel to have adequate support system. Depression/Shaken Baby/Safe Sleeping : Educated MOB and MOB's mother to depression and anxiety, touched on risk factors, and importance of self care and follow up. Touched on safe sleeping. Information provided on both safe sleeping and shaken baby prevention. ASSESSMENT: Met with MOB and MOB's mother together and then with MOB separately. MOB open and spontaneous in conversation, even with her mother present. MOB talked openly about stressors, recent life changes, support systems, and experience with her mother present. MOB's mother gave input intermittently, appearing to be supportive of MOB and understanding where MOB is coming from. Talked with MOB and her mother about risk for mood and anxiety disorders, normalizing that this is very common but important to have appropriate support and treatment. MOB presenting as self aware, with good insight into her emotional health needs, and presents as motivated to continue with counseling and with psychiatry for medication management. MOB reports the Prozac was life changing for MOB, and has really helped MOB overcome some of MOB's social anxiety issues. When talking privately with MOB, the MOB reports to be glad that her mother was present for part of conversation as it was helpful to be able to talk to this typewriter operator automatic and allow her mother to hear what has been going on with MOB. MOB reports has started to be able to talk with her mother more, but felt it was good for her mother to also hear feedback from social media marketing analyst. During private conversation with MOB, MOB more openly tearful as well as discussing more in depth some of the feelings she was experiencing prior to . MOB is close to her 3 year old nephew, to the point that MOB feels as if the nephew is like a child. MOB discussed grief and adjustment issues going from having nephew who has been a large focus in MOB's life to now having two children to look after and be involved with. MOB reports that felt an immediate connection to [place] and endorses a relief in anxiety symptoms now that [place] is here. MOB reports plan to formula feed so that MOB can go back to usual dose of Prozac, as well as address own physical needs related to gastric surgery recovery. Talked with MOB about limiting self on how often weighs self on the scale, eating nutritiously, and trying to focus on assistant terminal manager goals rather than immediate wants regarding body image; emphasizing importance overall health. MOB reports prior therapist also talked about similar themes with MOB as MOB had been obsessing with with the scale initially. MOB is able to identify coping skills as keeping busy, taking care of nephew (and now baby), talking to friends and family, staying in counseling and on medications. MOB reports has taken the scale over to her sisters to help reduce MOB's desire to weigh self frequently. MOB accepting of resource information offered, reports to have adequate support system, voices intention to stay in outpatient mental health treatment in the community, and to have needed supplies to care for baby. MOB is future oriented. MOB held good eye contact, tearful at times but appropriate to content being discussed, affect appropriate, attentive to infant and appeared comfortable holding the baby. MOB expressing thanks for social work visit, that it was nice to be able to talk about thoughts and feelings before going home with baby. PLAN: MOB and baby to discharge to parental home. Resource lists for [facility], depression information and resources also provided. MOB will follow up with local mental health center, WIC, and J[facility]. No other services requested or indicated. -KATHARINA Recio, ALTHEA
[2019-03-19 13:30] LABS: Pathology Specimen OB SEE PATHOLOGY REPORT
== END 2019-03-19 11:55 | disposition home or self-care (01) | DRG 560 ==
PROVIDERS: Admitting Provider Obstetrics & Gynecology; Visit Provider Obstetrics & Gynecology
DX: O76 Abnormality in fetal heart rate and rhythm complicating labor and delivery (principal); O36.5930 Maternal care for other known or suspected poor fetal growth, third trimester, not applicable or unspecified; O70.1 Second degree perineal laceration during delivery; O26.62 Liver and biliary tract disorders in childbirth; K80.50 Calculus of bile duct without cholangitis or cholecystitis without obstruction; O99.844 Bariatric surgery status complicating childbirth; O69.1XX0 Labor and delivery complicated by cord around neck, with compression, not applicable or unspecified; O99.344 Other mental disorders complicating childbirth; F32.9 Major depressive disorder, single episode, unspecified; F41.9 Anxiety disorder, unspecified; Z3A.38 38 weeks gestation of pregnancy; Z37.0 Single live birth
CPT/HCPCS: 59020; 59025; 59050; 80053; 81002; 82150; 83690; 85025; 85027; 86850; 86900; 86901; 88307; 99218; J7030; J7120; A4216; G0378; J2405

== ENCOUNTER 2019-03-21 14:56 | Outpatient (CLI) | payer MEDICAID, SELFPAY ==
[2019-03-21] VITALS (11 sets, daily range): BP systolic 115–168; BP diastolic 66–95; PULSE 80–84; RESP 16; TEMP 36.6; O2SAT 99; BMI 38.2
[2019-03-21 15:53] LABS: Hematocrit 27.2 % (37-47); Hemoglobin 8.6 g/dL (12.0-15.0); Mean Corp Hgb Conc 31.6 g/dL (32-36); Mean Corpuscular Hgb 27.3 pg (27.0-32.0); Mean Corpuscular Volume 86.3 fL (81-99); Mean Platelet Vol. 11.1 fl (6.2-12.0); Platelet Count 197 K/mm3 (150-450); RBC Distribution Width CV 14.6 % (11.6-14.6); RBC Distribution Width SD 45.1 fl (35.1-43.9); Red Blood Count 3.15 M/mm3 (4.2-5.4)
[2019-03-21 16:07] LABS: Partial Thromboplast Time 29.7 Seconds (24.1-36.2)
[2019-03-21 16:16] LABS: ALB/GLOB Ratio 0.6 RATIO (0.9-2.4); AST(SGOT) 14 U/L (15-37); Alanine Aminotransfer ALT/SGPT 13 U/L (13-56); Albumin, Serum 2.3 g/dL (3.2-5.0); Alkaline Phosphatase 102 U/L (45-117); Anion Gap 7 (5-15); BUN 13 mg/dL (7-18); BUN/Creat Ratio 20.3 RATIO (10-20); Calcium,Total 8.4 mg/dL (8.5-10.1); Chloride 109 mmol/L (98-107); Creatinine, Serum 0.64 mg/dL (0.55-1.02); EST Glomerular Filtration Rate 113 mL/min (>60); Est Glom Filt Rate - Afr Amer 136 mL/min (>60); Estimated Creatinine Clearance 102.46 ml/min; Globulin 3.8 g/dL (2.2-4.2); Glucose 65 mg/dL (74-106); Potassium 4.1 mmol/L (3.5-5.1); Protein, Total 6.1 g/dL (6.4-8.2); Sodium Level 143 mmol/L (136-145)
[2019-03-21 16:21] LABS: AST(SGOT) 12 U/L (15-37); Alanine Aminotransfer ALT/SGPT 15 U/L (13-56); Creatinine, Serum 0.66 mg/dL (0.55-1.02); EST Glomerular Filtration Rate 108 mL/min (>60); Est Glom Filt Rate - Afr Amer 131 mL/min (>60); Estimated Creatinine Clearance 99.35 ml/min; Uric Acid 5.3 mg/dL (2.6-6.0)
[2019-03-21] MEDS: Metoclopramide 10 MG/2 ML Vial IV (16:50)
[2019-03-21] MEDS: 0.9% Saline Lock 10 ML Syringe IV (16:50)
--- NOTE | 2019-03-21 18:58 | NURSING ---
Dr tony at bedside discussing plan for discharge and signs and symptoms for pre-e. All questions answered and addressed at this time.
--- NOTE | 2019-03-21 23:55 | OB.TRI.NOTE ---
- Problem List (1) Elevated blood pressure reading in office with diagnosis of hypertension Status: Acute (2) Maternal hypertension affecting puerperium Status: Acute History of Present Illness Date of Service: 03/21/19 Was patient seen by the physician?: Yes Reason For Visit: headache and elevated blood pressure Final ELLEN Source: US <20 weeks History of Present Illness: 33yo presents PPD#4 s/p with c/o headache and elevated blood pressure. Denies vision changes, shortness of breath, chest pain or abdominal pain. Allergies No Known Allergies Allergy (Verified 04/04/19 13:59) - Pertinent Past Medical History Medical History: Past Medical History (Last Reviewed 04/04/19 @ 14:13 by César Pickens MD) Abnormal Pap smear of cervix mild dysplasia 2019 Anxiety and depression Depression GERD (gastroesophageal reflux disease) Gallstones Hemorrhoid Surgical History: Past Surgical History (Last Reviewed 04/04/19 @ 14:13 by César Pickens MD) H/O bariatric surgery s/p gastric sleeve 05/07/18 History of colposcopy 2019 History of foot surgery history of foot fusion Laboratory Studies: Laboratory Tests 03/21/19 03/21/19 03/21/19 Range/Units 15:25 15:25 15:25 WBC (4.4-11.0) K/mm3 RBC (4.2-5.4) M/mm3 Hgb (12.0-15.0) g/dL Hct (37-47) % MCV (81-99) fL MCH (27.0-32.0) pg MCHC (32-36) g/dL RDW Std Deviation (35.1-43.9) fl RDW Coeff of Nadya (11.6-14.6) % Plt Count (150-450) K/mm3 MPV (6.2-12.0) fl PT 13.0 (11.7-14.9) SECONDS INR 1.0 APTT 29.7 (24.1-36.2) Seconds Sodium 143 (136-145) mmol/L Potassium 4.1 (3.5-5.1) mmol/L Chloride 109 H (98-107) mmol/L Carbon Dioxide 27.0 (21.0-32.0) mmol/L Anion Gap 7 (5-15) BUN 13 (7-18) mg/dL Creatinine 0.64 0.66 (0.55-1.02) mg/dL Estim Creat Clear Calc 102.46 99.35 ml/min Est GFR (MDRD) Af Amer 136 131 (>60) mL/min Est GFR (MDRD) Non-Af 113 108 (>60) mL/min BUN/Creatinine Ratio 20.3 H (10-20) RATIO Glucose 65 L (74-106) mg/dL Uric Acid 5.3 (2.6-6.0) mg/dL Calcium 8.4 L (8.5-10.1) mg/dL Total Bilirubin 0.20 (0.20-1.00) mg/dL AST 14 L 12 L (15-37) U/L ALT 13 15 (13-56) U/L Alkaline Phosphatase 102 (45-117) U/L Total Protein 6.1 L (6.4-8.2) g/dL Albumin 2.3 L (3.2-5.0) g/dL Globulin 3.8 (2.2-4.2) g/dL Albumin/Globulin Ratio 0.6 L (0.9-2.4) RATIO 03/21/19 Range/Units 15:25 WBC 8.0 (4.4-11.0) K/mm3 RBC 3.15 L (4.2-5.4) M/mm3 Hgb 8.6 L (12.0-15.0) g/dL Hct 27.2 L (37-47) % MCV 86.3 (81-99) fL MCH 27.3 (27.0-32.0) pg MCHC 31.6 L (32-36) g/dL RDW Std Deviation 45.1 H (35.1-43.9) fl RDW Coeff of Nadya 14.6 (11.6-14.6) % Plt Count 197 (150-450) K/mm3 MPV 11.1 (6.2-12.0) fl PT (11.7-14.9) SECONDS INR APTT (24.1-36.2) Seconds Sodium (136-145) mmol/L Potassium (3.5-5.1) mmol/L Chloride (98-107) mmol/L Carbon Dioxide (21.0-32.0) mmol/L Anion Gap (5-15) BUN (7-18) mg/dL Creatinine (0.55-1.02) mg/dL Estim Creat Clear Calc ml/min Est GFR (MDRD) Af Amer (>60) mL/min Est GFR (MDRD) Non-Af (>60) mL/min BUN/Creatinine Ratio (10-20) RATIO Glucose (74-106) mg/dL Uric Acid (2.6-6.0) mg/dL Calcium (8.5-10.1) mg/dL Total Bilirubin (0.20-1.00) mg/dL AST (15-37) U/L ALT (13-56) U/L Alkaline Phosphatase (45-117) U/L Total Protein (6.4-8.2) g/dL Albumin (3.2-5.0) g/dL Globulin (2.2-4.2) g/dL Albumin/Globulin Ratio (0.9-2.4) RATIO Review of Systems Constitutional: Denies: Fever Cardiovascular: Denies: Chest Pain, Edema, Palpitations Respiratory: Denies: Shortness of Breath Gastrointestinal: Denies: Abdominal Pain, Nausea, Vomiting Neurological: Denies: Blurred vision Physical Exam Vitals: Vital Signs Temp Pulse Resp BP Pulse Ox 97.8 F 80 16 115/70 99 03/21/19 15:10 03/21/19 18:00 03/21/19 15:10 03/21/19 18:30 03/21/19 15:10 General: Alert, Oriented x3, Cooperative, No apparent distress HEENT: Atraumatic, Normocephalic Cardiovascular: Regular rate, Regular Rhythm Lungs: Clear to auscultation, Normal air movement Abdomen: Soft, Non Tender, Non-Distended Extremities:: No edema Neurological: Deep Tendon Reflexes 2+/4 and Symmetrical, Neuro grossly intact Impression/Plan Labs & Testing WBC 8.0 K/mm3 (4.4-11.0) 03/21/19 15:25 RBC 3.15 M/mm3 (4.2-5.4) L 03/21/19 15:25 Hgb 8.6 g/dL (12.0-15.0) L 03/21/19 15:25 Hct 27.2 % (37-47) L 03/21/19 15:25 MCV 86.3 fL (81-99) 03/21/19 15:25 MCH 27.3 pg (27.0-32.0) 03/21/19 15:25 MCHC 31.6 g/dL (32-36) L 03/21/19 15:25 RDW Std Deviation 45.1 fl (35.1-43.9) H 03/21/19 15:25 RDW Coeff of Nadya 14.6 % (11.6-14.6) 03/21/19 15:25 Plt Count 197 K/mm3 (150-450) 03/21/19 15:25 MPV 11.1 fl (6.2-12.0) 03/21/19 15:25 PT 13.0 SECONDS (11.7-14.9) 03/21/19 15:25 INR 1.0 03/21/19 15:25 APTT 29.7 Seconds (24.1-36.2) 03/21/19 15:25 Sodium 143 mmol/L (136-145) 03/21/19 15:25 Potassium 4.1 mmol/L (3.5-5.1) 03/21/19 15:25 Chloride 109 mmol/L (98-107) H 03/21/19 15:25 Carbon Dioxide 27.0 mmol/L (21.0-32.0) 03/21/19 15:25 Anion Gap 7 (5-15) 03/21/19 15:25 BUN 13 mg/dL (7-18) 03/21/19 15:25 Creatinine 0.64 mg/dL (0.55-1.02) 03/21/19 15:25 Creatinine 0.66 mg/dL (0.55-1.02) 03/21/19 15:25 Estim Creat Clear Calc 99.35 ml/min 03/21/19 15:25 Estim Creat Clear Calc 102.46 ml/min 03/21/19 15:25 Est GFR (MDRD) Af Amer 131 mL/min (>60) 03/21/19 15:25 Est GFR (MDRD) Af Amer 136 mL/min (>60) 03/21/19 15:25 Est GFR (MDRD) Non-Af 108 mL/min (>60) 03/21/19 15:25 Est GFR (MDRD) Non-Af 113 mL/min (>60) 03/21/19 15:25 BUN/Creatinine Ratio 20.3 RATIO (10-20) H 03/21/19 15:25 Glucose 65 mg/dL (74-106) L 03/21/19 15:25 Uric Acid 5.3 mg/dL (2.6-6.0) 03/21/19 15:25 Calcium 8.4 mg/dL (8.5-10.1) L 03/21/19 15:25 Total Bilirubin 0.20 mg/dL (0.20-1.00) 03/21/19 15:25 AST 12 U/L (15-37) L 03/21/19 15:25 AST 14 U/L (15-37) L 03/21/19 15:25 ALT 13 U/L (13-56) 03/21/19 15:25 ALT 15 U/L (13-56) 03/21/19 15:25 Alkaline Phosphatase 102 U/L (45-117) 03/21/19 15:25 Total Protein 6.1 g/dL (6.4-8.2) L 03/21/19 15:25 Albumin 2.3 g/dL (3.2-5.0) L 03/21/19 15:25 Globulin 3.8 g/dL (2.2-4.2) 03/21/19 15:25 Albumin/Globulin Ratio 0.6 RATIO (0.9-2.4) L 03/21/19 15:25 Patient observed over approximately 4 hours. IV Reglan given with resolution of headache and blood pressures remained normal once headache resolved. Preeclamptic labs reviewed were unremarkable and exam unremarkable. Known anemia at time of delivery persists. Patient discharged to home. Plan f/u in office in 1-2 weeks for repeat BP check. Code Visit Office Visits / Consults: [id number] OV L3 Est
== END 2019-03-21 19:05 | disposition home or self-care (01) ==
PROVIDERS: Referring Provider Obstetrics & Gynecology; Visit Provider Obstetrics & Gynecology
DX: O16.5 Unspecified maternal hypertension, complicating the puerperium (principal)
CPT/HCPCS: 96374; 36415; 80053; 82565; 84450; 84460; 84550; 85027; 85610; 85730; 99218; G0378

== ENCOUNTER 2019-04-15 08:59 | Day surgery (SDC) | payer MEDICAID, SELFPAY ==
--- NOTE | 2019-04-04 02:15 | HP_ITS ---
Intake Vital Signs 04/04/19 Body Mass Index (BMI) 38.2 04/04/19 Height 5 ft 3 in 04/04/19 Weight: 198 lb 5 oz 04/04/19 Body Mass Index (BMI) 35.1 04/04/19 Blood Pressure 145/92 H 04/04/19 Blood Pressure Location Rt brachial 04/04/19 Blood Pressure Position Sitting 04/04/19 Respiratory Rate 18 04/04/19 Pulse Rate 64 04/04/19 Pulse Ox 98 Intake Visit Reasons: Multiple Gallstones Chief Complaint: discuss surgery Caser Required: No Is patient in pain?: No Allergies No Known Allergies Allergy (Verified 04/04/19 13:59) Medications Fluoxetine [Prozac] 60 mg PO DAILY 05/23/18 [History Confirmed 04/04/19] biotin 1,000 mcg chewable tablet 1,000 mcg PO DAILY 04/04/19 [History Confirmed 04/04/19] Is last menstrual period known: No Post menopausal: No Patient : No PFSH Medical History Anxiety and depression (Acute) GERD (gastroesophageal reflux disease) (Acute) Gallstones (Acute) Hemorrhoid (Acute) Abnormal Pap smear of cervix (Acute) Depression (Acute) Surgical History History of foot surgery (Acute) history of foot fusion (Acute) H/O bariatric surgery (Acute) History of colposcopy (Acute) Family History Mother Hypertension Social History (Updated 04/04/19 @ 14:15 by César Pickens MD) Smoking Status: Never smoker HPI HPI HPI: ARAVIND RIVAS, is a 33 F who presents to the office today for HPI HPI Surgical H&P: Yes HPI: ARAVIND RIVAS, is a 33 F who presents to the office today for Evaluation of symptomatic cholelithiasis. Patient is three-week status post delivery of her child [facility] when she was having an attack. She was treated conservatively and now presents for definitive surgical treatment. She has had an ultrasound done it was [facility] [place] on 11/12/2018. Multiple gallstones and sludge were identified within the gallbladder itself. Recently on the 10th of this month she was in the emergency department for another episode of biliary colic her liver function tests were normal at that time as well. ROS General General: Yes weight change and fatigue; no appetite, colon cancer, breast cancer or weakness HEENT HEENT: No difficulty swallowing, eye injury, eye surgery, swollen glands or hoarseness Endo Endocrine: No thyroid disease, diabetes mellitus, thyroid cancer, Hair loss, heat intolerance or cold intolerance Cardio Cardiovascular: No murmur, pacemaker, heart disease, atrial fibrillation, high blood pressure, heart attack, heart stent, palpitations, shortness of breat with exertion or chest pain Psych Psychiatric: Yes depression and anxiety; no hearing voices Resp Respiratory: No shortness of breath, No sleep apnea, No cough, No COPD, No asthma, No emphysema, No wheezing Gastro Gastrointestinal: Yes abdominal pain, Yes nausea or vomiting, Yes diarrhea, Yes constipation, No blood in stool, Yes acid reflux, Yes hemorrhoids, No ulcers, Yes gallbladder problem, No black,tarry stools Neuro Neurologic: No weakness Exam Const General: no acute distress, well developed, well hydrated Orientation: oriented to person, oriented to place, oriented to time [facility] Head: normocephalic, atraumatic Ears: external ears normal Mouth: moist mucous membranes Eyes Sclera: sclerae normal Pupils: normal by confrontation Neck Neck: no lymphadenopathy noted Neck mass: No Thyroid: thyroid normal, symmetrical Chest Chest palpation & inspection: normal inspection of the chest Resp Effort & Inspection: normal respiratory effort Auscultation: clear to auscultation bilaterally Percussion: percussion normal Cardio Rate: regular rate Rhythm: regular rhythm Heart Sounds: no murmurs GI Palpation: soft, no hepatosplenomegaly, no masses, tender Auscultation: normal bowel sounds Rectal Exam: other Other: Rectal exam deferred. Extrem General: normal to inspection, no clubbing, cyanosis or edema Assessment & Plan Problems 1. Cholelithiasis affecting in third trimester, antepartum O26.613; K80.20 2. Abdominal pain, RUQ R10.11 Plan Reviewed the anatomy with the patient and discussed the procedure: Robotic assisted laparoscopic cholecystectomy with possible cholangiograms, possible open. Review risks including but not limited to bleeding, infection, hernia, bile leak, retained gallstones requiring another procedure ERCP- Endoscopic Retrograde Cholangiopancreatography, injury to another organ (bile ducts, common bile duct, small bowel, etc.) and conversion to an open procedure. All questions were answered. Coding Level of Care Code Off vis,est,level 3 Diagnoses Cholelithiasis affecting in third trimester, antepartum O26.613; K80.20 Abdominal pain, RUQ R10.11 04/04/19 1415 <Electronically signed by César baca MD> Date _ César Pickens MD I have re-examined the patient. There are no clinical changes since date of exam.
[2019-04-04 14:01] VITALS: BMI 38.2
[2019-04-11 17:18] LABS: Hematocrit 35.9 % (37-47); Hemoglobin 10.9 g/dL (12.0-15.0); Mean Corp Hgb Conc 30.4 g/dL (32-36); Mean Corpuscular Hgb 26.1 pg (27.0-32.0); Mean Corpuscular Volume 85.9 fL (81-99); Platelet Count 255 K/mm3 (150-450); RBC Distribution Width CV 14.6 % (11.6-14.6); RBC Distribution Width SD 45.9 fl (35.1-43.9); Red Blood Count 4.18 M/mm3 (4.2-5.4); White Blood Count 6.2 K/mm3 (4.4-11.0)
[2019-04-11 17:23] LABS: International Normalized Ratio 1.2; Prothrombin Time (Protime)PT. 14.8 SECONDS (11.7-14.9)
[2019-04-11 17:24] LABS: Partial Thromboplast Time 35.5 Seconds (24.1-36.2)
[2019-04-15] VITALS (13 sets, daily range): BP systolic 125–186; BP diastolic 71–99; PULSE 51–84; RESP 14–20; TEMP 36.1–37.2; O2SAT 88–100; BMI 35.3
[2019-04-15] MEDS: Lactated Ringers 1,000 ML 100 ML IV (10:03)
[2019-04-15 10:47] LABS: Internal QC Validated? YES +Cl - CLEAR BKGD; Pregnancy, Urine Negative Negative
[2019-04-15] MEDS: Cefazolin 2 GM in 0.9% Normal Saline 100 ML IV (11:07)
--- NOTE | 2019-04-15 11:10 | GALL_PTH ---
PATIENT: ROB,SEPTEMBER N [place] [facility] [id number] AGE/SX: 33/F ROOM: RE04/15/[address]: Dr. César Pickens MD : [id number] BED: DIS: 04/15/2019 SPEC #: [id number] RECD: 04/15/19 13:58 STATUS: KAVITA RECj #: [id number] MELITA: 04/15/19 11:[address]: César Pickens DEPT: SURGICAL PATHOLOGY RECD BY: Carol Gerber ENTERED: 04/15/19 14:18 SP TYPE: MUKESH REYES DR: MD Melanie Mccall, DUMP MOTOR OPERATOR-C Tissues: Gallbladder, NOS Procedures: Surgery Specimen Level III HEADER OPERATION: Robotic cholecystectomy PRE-OP DIAGNOSIS: Cholelithiasis affecting in third trimester, antepartum O26.613; K80.20, abdominal pain, RUQ R10.11 TISSUE SUBMITTED: Gallbladder MICROSCOPIC DIAGNOSIS Gallbladder, cholecystectomy: Mild chronic cholecystitis, cholelithiasis and cholesterolosis. CELY:rhona 04/16/19 MICROSCOPIC DESCRIPTION Slides are reviewed. GROSS DESCRIPTION Received is one container labeled with the patient's name and designated gallbladder. The specimen consists of a gallbladder measuring 8 cm in length and up to 4 cm in diameter. The external surface is pink-pedersen, smooth and glistening for the most part. Focally it is granular, hemorrhagic and contains cautery artifact. The gallbladder contains green-yellow mucoid bile and multiple yellowish-green mulberry stones and stone fragments measuring in aggregate 4 x 4 x 1.5 cm and 0.1 to 0.5 cm in greatest dimension. The mucosa also shows several yellowish streaks consistent with cholesterolosis. The mucosa is bile-stained and without any mass lesions. The gallbladder wall measures up to 0.2 cm in thickness. Mechatronics Engineer sections from the gallbladder and the cystic duct are submitted in one cassette. / CELY:rhona 04/15/19 TC:3 CPT: 11853
--- NOTE | 2019-04-15 12:07 | OP.PCM_ITS ---
Problem List (1) Calculus of gallbladder without cholecystitis without obstruction Status: Acute (2) RUQ abdominal pain Status: Acute Report of Operation Date of Procedure: 04/15/19 Pre-Operative Diagnosis: Cholelithiasis without obstruction or gangrene. Right upper quadrant abdominal pain Post-Operative Diagnosis: Same Surgery/Procedure Performed:: Robotic assisted laparoscopic cholecystectomy Type of Anesthesia:: General Anesthesiologist: Alen Johnson Specimen's removed: Gallbladder Estimated Blood Loss (mL): < 25 cc Fluids Replaced: 800cc LR Description of Procedure: Patient was brought into the operating room. Placed in the supine position. Under excellent general trach intubation the bed was placed in the head up and rotated to the left position and sterilely prepped and draped in the usual fashion. Local was injected above the umbilicus dissection was carried down to the fascia fascia was grasped with Ramakrishna varies needle was placed inside the abdomen the abdomen was insufflated to 15 torr. A 10/12 trocar was placed without difficulty. It was flank by a #8 trochars approximately a hand with the way from both the left and right midline essentially in the midclavicular line. And then further laterally a #5 trocar was placed. All of these under direct visualization without injury to underlying structures. The robot was brought in and docked appropriately fundus of the gallbladder was grasped retracted cephalad direction moderate amount of adhesions were taken down off of the gallbladder I dissected out the cystic duct without difficulty. I placed hemoclips proximal distally and ligated the duct. Identified the cystic artery placed hemoclips proximally and then use electrocautery to transect the cystic artery. I deliver the gallbladder from gallbladder bed with use of electrocau sandy and had no spillage of bile or stones. Had excellent hemostasis on the liver bed placed a specimen specimen bag delivered through the umbilical port without difficulty trochars were removed under direct visualization good mistakes was noted. Fascia the umbilical port was closed with [id number] stitch of 0 Vicryl skin incisions were closed with some particular stitches of 4-0 Monocryl Steri-Strips applied sterile dressings were applied and the patient tolerated the procedure well. - Admit VTE Documentation VTE Present on Admission: No VTE Mechan Device Prophylaxis: SCD's VTE Pharm Prophylaxis ordered?: No Reason prophylaxis not ordered:: Treatment Not Indicated
--- NOTE | 2019-04-15 12:11 | DCINST_ITS ---
Discharge Diet: Light diet - advance as tolerated Discharge Activity: May Not Drive - for 2-3 days or while taking narcotic pain medications., - - Do not drive, work heavy equipment or sign legal documents for 24 hours. May shower in (days): 1 - with the bandage in place. Additional Activity Instructions:: Pain medication may cause nausea. You should typically eat light foods as you take your pain medications. Pain medication may also cause constipation. If this is a problem for you, please discuss with your doctor. Call your doctor if your incision/area has: Continuous Slow Oozing, Sudden Increased Bleeding, Increased Pain/ Swelling, Increased Redness, Foul Smelling Discharge Call your doctor if you observe: Fever of 101 or Higher Suture Line Care: Avoid Pulling/Pushing, Avoid Pinching/Bending Additional Dressing/Incision Instructions:: Leave operative bandaids on for 2 days. When you remove dressing, leave Steri-Strips on until your follow-up appointment, or until the Steri-Strips fall off on their own. Allergies/Adverse Reactions: Allergies No Known Allergies Allergy (Verified 04/15/19 09:53) Medications to take at Discharge Fluoxetine [Prozac] 60 mg PO DAILY 05/23/18 biotin 1,000 mcg chewable tablet 1,000 mcg PO DAILY 04/04/19 Cyanocobalamin (Vitamin B-12) [Vitamin B-12] 5,000 mcg PO DAILY 04/08/19 Docusate Sodium [Colace] 100 mg PO BID 04/08/19 Iron Carbonyl [Feosol] 65 mg PO BID 04/08/19 Vits [Prenatabs FA] 1 tab PO DAILY 04/08/19 Oxycodone HCl/Acetaminophen [Percocet 5/325] 1 - 2 tab PO Q4H PRN PRN 6 Days #30 tab 04/15/19 The following prescriptions were given: Oxycodone HCl/Acetaminophen [Percocet 5/325] 1 - 2 tab PO Q4H PRN PRN 6 Days #30 tab PRN Reason: Pain Prescription Printed Primary Care Physician: Melanie Arevalo NP-C [Primary Care Provider] - Test Results: Test results from this visit will be discussed in further detail at your follow- up appointment, if applicable. Please Follow Up With: César Pickens MD - Please call [phone] to schedule an appointment. When: 7 days after your surgery.
[2019-04-15] MEDS: Bupivacaine Mpf 0.5% 30 ML VIAL (12:15)
--- NOTE | 2019-04-15 13:02 | SUR.PHASEI ---
Addendum entered by Nancy Rascon 04/15/19 14:14: NOW SLEEPING QUIETLY, NO S/S DISTRESS. AROUSES EASILY. AWAITING LAB RESULTS. BP IMPROVED. CONTINUE TO MONITOR. Addendum entered by Nancy Rascon 04/15/19 13:27: DR WOLF UPDATED OF PATIENT C/O NO CHANGE IN PAIN, WHIMPERING, AND FEELING LIKE HAVING AN ACUTE GALL BLADDER ATTACK DESPITE 2 MG DILAUDID, 50 MCG FENTANYL, 0.5 MG IV ATIVAN. ABDOMEN SOFT, DENIES NAUSEA. ORDERED DEMEROL 50 MG IV NOW, MAY REPEAT X 1 IN 5 MINUTES IF PAIN PERSISTS, ORDERED CBC, CMP, AMYLASE, LIPASE, CALLED LAB FOR STAT DRAW. WHEN NOTIFYING PATIENT OF DR WOLF'S ORDERS, STATED WELL, IT'S MAYBE A 6 NOW. Original Note: HAS BEEN C/O ABDOMINAL PAIN 01/19 SINCE ARRIVAL TO PACU WITHOUT CHANGE DESPITE 2 MG DILAUDID TOTAL & COMFORT MEASURES, DENIES NAUSEA, BP ELEVATED BUT HR 50'S SUSTAINED. MOANING. DOES HAVE A HX OF ANXIETY/DEPRESSION. STATES IT FEELS LIKE A GALL BLADDER ATTACK. DR MERVIN RODRIGUEZ NOTIFIED, ADDITIONAL PAIN MEDS ORDERED.
[2019-04-15] MEDS: Ketorolac 30 MG/ML Syringe IV (13:46)
[2019-04-15 13:50] LABS: Absolute Lymphocyte Count 0.85 X10^3/uL (0.83-4.51); Absolute Neutrophil Count 6.8 X10^3/uL (2.0-7.7); Basophil# 0.02 X10^3/uL; Basophil% 0.3 % (0-1); Eosinophil# 0.12 X10^3/uL; Eosinophils% 1.5 % (0-5); Hematocrit 39.3 % (37-47); Hemoglobin 12.1 g/dL (12.0-15.0); Lymphocyte # 0.85 X10^3/ul (4.0); Lymphocyte % 10.6 % (19-41); Mean Corp Hgb Conc 30.8 g/dL (32-36); Mean Corpuscular Hgb 26.2 pg (27.0-32.0); Mean Corpuscular Volume 85.1 fL (81-99); Mean Platelet Vol. 10.6 fl (6.2-12.0); Monocyte# 0.17 X10^3/uL; Monocyte% 2.1 % (0-10); NRBC Flagged by Analyzer 0 % (0-5); Neutrophil # 6.77 X10^3/uL (2.7-7.7); Neutrophil % 84.6 % (47-70); Platelet Count 204 K/mm3 (150-450); RBC Distribution Width SD 46.1 fl (35.1-43.9); Red Blood Count 4.62 M/mm3 (4.2-5.4)
[2019-04-15 14:24] LABS: ALB/GLOB Ratio 0.9 RATIO (0.9-2.4); AST(SGOT) 19 U/L (15-37); Alanine Aminotransfer ALT/SGPT 20 U/L (13-56); Albumin, Serum 3.3 g/dL (3.2-5.0); Alkaline Phosphatase 76 U/L (45-117); Amylase 27 U/L (25-115); Anion Gap 7 (5-15); BUN 13 mg/dL (7-18); BUN/Creat Ratio 12.1 RATIO (10-20); Calcium,Total 8.9 mg/dL (8.5-10.1); Chloride 107 mmol/L (98-107); Creatinine, Serum 1.07 mg/dL (0.55-1.02); EST Glomerular Filtration Rate 62 mL/min (>60); Est Glom Filt Rate - Afr Amer 75 mL/min (>60); Estimated Creatinine Clearance 61.28 ml/min; Globulin 3.6 g/dL (2.2-4.2); Glucose 114 mg/dL (74-106); Lipase 95 U/L (73-393); Potassium 4.1 mmol/L (3.5-5.1); Protein, Total 6.9 g/dL (6.4-8.2); Sodium Level 139 mmol/L (136-145)
--- NOTE | 2019-04-15 16:36 | SUR.PHASEII ---
BLADDER SCAN 496 PT WILL TRY TO DRINK MORE AND TRY TO URINATE LATER. NOTES THAT SHE WOULD LIKE TO JUST GO HOME
== END 2019-04-15 17:39 | disposition home or self-care (01) ==
LOC: SDC 09:00 → AC 09:20
PROVIDERS: Anesthesiology; Family Provider Nurse Practitioner Family; PCP Nurse Practitioner Family; Referring Provider Surgery; Visit Provider Surgery
PROC: 0FT44ZZ Resection of Gallbladder, Percutaneous Endoscopic Approach (ICD-10-PCS; CPT 47562; principal; 2019-04-15 10:50)
DX: O99.63 Diseases of the digestive system complicating the puerperium (principal); K80.10 Calculus of gallbladder with chronic cholecystitis without obstruction; K21.9 Gastro-esophageal reflux disease without esophagitis; F41.8 Other specified anxiety disorders; Z98.84 Bariatric surgery status; L90.0 Lichen sclerosus et atrophicus
CPT/HCPCS: 00790; 47562; S2900; 36415; 80053; 81025; 82150; 83690; 85025; 85027; 85610; 85730; 88304; 93005; J7120; J2405

== ENCOUNTER → 2019-05-02 14:14 | Outpatient (CLI) | payer MEDICAID, SELFPAY ==
[2019-04-15 09:54] VITALS: BMI 35.3
[2019-05-10 13:43] LABS: HPV APTIMA, High Risk Negative (Negative)
== END ==
PROVIDERS: Family Provider Nurse Practitioner Family; PCP Nurse Practitioner Family; Visit Provider Obstetrics & Gynecology
DX: Z12.4 Encounter for screening for malignant neoplasm of cervix (principal)
CPT/HCPCS: 87624; 88175; G0145

== ENCOUNTER → 2019-06-18 08:04 | Outpatient (CLI) | payer MEDICAID, SELFPAY ==
[2019-04-15 09:54] VITALS: BMI 35.3
--- NOTE | 2019-06-18 14:30 | CER_PTH ---
PATIENT: ROB,SEPTEMBER N LOC: [facility] U#:[id number] AGE/SX: 39/F ROOM: RE06/18/[address]: Dr. Lisa Fong MD : [id number] BED: DIS: SPEC #: [id number] RECD: 06/18/19 17:42 STATUS: KAVITA BURROUGHS #: [id number] MELITA: 06/18/19 14:[address]: Lisa Neumann DEPT: SURGICAL PATHOLOGY RECD BY: Carol Gerber ENTERED: 06/19/19 10:37 SP TYPE: CERV OTHR DR: Melanie Arevalo, CORE PILER-C Tissues: A - Uterine cervix, NOS B - Endocervical C - Uterine cervix, NOS D - Skin of buttock, NOS Procedures: Special Stain Group I Surgery Specimen Level IV GMS Stain (control) HEADER OPERATION: Colposcopy PRE-OP DIAGNOSIS: LGSIL pap, mild dysplasia TISSUE SUBMITTED: A. Cervical biopsy at 12 o'clock, B. ECC, C. Cervical biopsy at 6 o'clock, D. Punch biopsy of right buttock MICROSCOPIC DIAGNOSIS A. Cervix at 12 o'clock, biopsy: Endocervix with mild chronic inflammation. B. Endocervix, curettings: Benign fragments of endocervix, inflamed. C. Cervix at 6 o'clock, biopsy: Fragment of endocervix with chronic inflammation. D. Right buttocks, punch biopsy: Mild acute inflammation of epidermis, Mild hyperkeratosis. Negative for fungal organisms. See comment. AM:rhona 06/20/19 COMMENT D. GMS stain with matched control supports the above diagnosis. There is no evidence of malignancy. MICROSCOPIC DESCRIPTION Slides are reviewed. GROSS DESCRIPTION A - Received in fixative is one container labeled with the patient's name and designated cervical biopsy at 12 o'clock. The specimen consists of one irregular fragment of light pedersen soft tissue that measures 0.5 x 0.3 x 0.1 cm. The specimen is totally submitted in one cassette. B - Received in fixative is one container labeled with the patient's name and designated ECC. The specimen consists of light pedersen mucoid material aggregating to 2 x 1 x <0.1 cm. The specimen is submitted in its entirety in one cassette. C - Received in fixative is one container labeled with the patient's name and designated 6 o'clock cervical biopsy. The specimen consists of one irregular fragment of light pedersen soft tissue that measures 0.6 x 0.5 x 0.1 cm. The specimen is totally submitted in one cassette. D - Received in fixative is one container labeled with the patient's name and designated punch biopsy right buttocks. The specimen consists of multiple irregular fragments of pedersen tissue ranging in size from 0.2 to 0.5 cm. The specimen is submitted in its entirety in one cassette. / AM:rhona 06/19/19 TC:3 CPT: 97261 x4
== END ==
PROVIDERS: Family Provider Nurse Practitioner Family; PCP Nurse Practitioner Family; Referring Provider Obstetrics & Gynecology; Visit Provider Obstetrics & Gynecology
DX: N72 Inflammatory disease of cervix uteri (principal); L85.9 Epidermal thickening, unspecified
CPT/HCPCS: 88305; 88312

== ENCOUNTER → 2020-02-12 16:38 | Outpatient (CLI) | payer BC, MEDICAID, SELFPAY ==
[2019-04-15 09:54] VITALS: BMI 35.3
[2020-02-12 17:22] LABS: Absolute Lymphocyte Count 1.54 X10^3/uL (0.83-4.51); Basophil# 0.01 X10^3/uL; Basophil% 0.1 % (0-1); Eosinophil# 0.09 X10^3/uL; Eosinophils% 1.1 % (0-5); Hematocrit 33.1 % (37-47); Hemoglobin 10.2 g/dL (12.0-15.0); Lymphocyte # 1.54 X10^3/ul (4.0); Lymphocyte % 19.1 % (19-41); Mean Corp Hgb Conc 30.8 g/dL (32-36); Mean Corpuscular Hgb 24.9 pg (27.0-32.0); Mean Corpuscular Volume 80.7 fL (81-99); Mean Platelet Vol. 10.7 fl (6.2-12.0); NRBC Flagged by Analyzer 0 % (0-5); Neutrophil # 5.99 X10^3/uL (2.7-7.7); Neutrophil % 74.5 % (47-70); Platelet Count 249 K/mm3 (150-450); RBC Distribution Width CV 15.9 % (11.6-14.6); White Blood Count 8.1 K/mm3 (4.4-11.0)
[2020-02-12 17:45] LABS: Color, Urine Yellow (Yellow); Glucose, Dipstick Normal (Normal); Ketone-Dipstick 5 mg/dl (Negative); Leukocyte Esterase-Dipstick 500 /ul (Negative); Nitrite-Dipstick Negative (Negative); Occult Blood-Urine Negative /ul (Negative); Protein-Dipstick 15 mg/dl (Negative); Urine Bilirubin Dipstick Negative (Negative); Urine Clarity Sl. Cloudy (Clear); Urine Urobilinogen Normal (Normal)
[2020-02-12 17:48] LABS: Amphetamine Urine VISTA NEGATIVE (<1000 ng/mL); Barbiturate Urine VISTA NEGATIVE (< 200 ng/mL); Benzodiazepine Urine VISTA NEGATIVE (< 200 ng/mL); Cocaine Urine VISTA NEGATIVE (< 300 ng/mL); Ecstacy Urine VISTA NEGATIVE (< 500 ng/mL); Methadone Urine VISTA NEGATIVE (< 300 ng/mL); PCP Urine VISTA NEGATIVE (< 25 ng/mL); THC Urine VISTA NEGATIVE (< 50 ng/mL); Vista UDS pH Range 5
[2020-02-12 18:23] LABS: Ferritin 6 ng/mL (8-252); Thyroid Stim Hormone (TSH) 1.37 uIU/mL (0.358-3.74)
[2020-02-13 06:29] LABS: Prenatal RPR NONREACTIVE (NONREACTIVE)
[2020-02-13 09:54] LABS: Hemoglobin A1c 5.4 % (3.8-5.6)
[2020-02-13 11:05] LABS: HIV - WCH Non-Reactive (Nonreactive); Hepatitis B Surface Antigen Non-Reactive (Nonreactive); Hepatitis C Antibody Non-Reactive (Nonreactive); Rubella IgG 225.1 IU/mL; Vitamin B12 440 pg/mL (211-911); Vitamin D,25 Hydroxy 25.6 ng/mL
[2020-02-16 03:06] LABS: Chlamydia By Nucleic Acid AMP Negative (Negative)
[2020-02-16 05:40] LABS: Gonococcus By Nucleic Acid AMP Negative (Negative)
[2020-02-20 22:04] LABS: HPV Reflexed? NOT INDICATED
== END ==
PROVIDERS: PCP Nurse Practitioner Family; Visit Provider Obstetrics & Gynecology
DX: Z34.81 Encounter for supervision of other normal pregnancy, first trimester (principal); Z12.4 Encounter for screening for malignant neoplasm of cervix; Z11.3 Encounter for screening for infections with a predominantly sexual mode of transmission; Z98.84 Bariatric surgery status
CPT/HCPCS: 36415; 80307; 81002; 82306; 82607; 82728; 82746; 83036; 84443; 85025; 86703; 86762; 86803; 87340; 87491; 87591; 88175; G0145

== ENCOUNTER → 2020-05-19 17:52 | Outpatient (CLI) | payer BC, SELFPAY ==
[2019-04-15 09:54] VITALS: BMI 35.3
== END ==
PROVIDERS: PCP Internal Medicine; Referring Provider Obstetrics & Gynecology; Visit Provider Obstetrics & Gynecology
DX: Z20.828 Contact with and (suspected) exposure to other viral communicable diseases (principal)
CPT/HCPCS: 87635; C9803; U0003

== ENCOUNTER → 2020-06-24 16:55 | Outpatient (CLI) | payer BC, SELFPAY ==
[2019-04-15 09:54] VITALS: BMI 35.3
[2020-06-24 17:25] LABS: Hematocrit 29.8 % (37-47); Hemoglobin 9.2 g/dL (12.0-15.0); Mean Corp Hgb Conc 30.9 g/dL (32-36); Mean Corpuscular Hgb 26.7 pg (27.0-32.0); Mean Corpuscular Volume 86.4 fL (81-99); Mean Platelet Vol. 10.5 fl (6.2-12.0); Platelet Count 154 K/mm3 (150-450); RBC Distribution Width SD 43.5 fl (35.1-43.9); Red Blood Count 3.45 M/mm3 (4.2-5.4); White Blood Count 8.1 K/mm3 (4.4-11.0)
== END ==
PROVIDERS: Visit Provider Obstetrics & Gynecology
DX: Z34.82 Encounter for supervision of other normal pregnancy, second trimester (principal)
CPT/HCPCS: 36415; 85027

== ENCOUNTER 2020-08-15 10:00 | Outpatient (CLI) | payer BC, MEDICAID, SELFPAY ==
[2020-08-15] VITALS (13 sets, daily range): BP systolic 134–137; BP diastolic 73–92; PULSE 80–113; TEMP 36.6; O2SAT 100; BMI 34.7
[2020-08-15] MEDS: Lactated Ringers 1,000 ML 999 ML IV (11:30)
[2020-08-15] MEDS: Ondansetron 4 MG/2 ML Vial IV (11:37)
[2020-08-15 11:42] LABS: Hematocrit 33.2 % (37-47); Hemoglobin 10.1 g/dL (12.0-15.0); Mean Corp Hgb Conc 30.4 g/dL (32-36); Mean Corpuscular Hgb 24.9 pg (27.0-32.0); Mean Corpuscular Volume 81.8 fL (81-99); Platelet Count 150 K/mm3 (150-450); RBC Distribution Width CV 14.2 % (11.6-14.6); RBC Distribution Width SD 41.9 fl (35.1-43.9); Red Blood Count 4.06 M/mm3 (4.2-5.4); White Blood Count 7.9 K/mm3 (4.4-11.0)
[2020-08-15] MEDS: Acetaminophen/Butalbital/Caffe 1 Tablet PO (12:02)
[2020-08-15 12:10] LABS: ALB/GLOB Ratio 0.6 RATIO (0.9-2.4); AST(SGOT) 11 U/L (15-37); Alanine Aminotransfer ALT/SGPT 14 U/L (13-56); Albumin, Serum 2.6 g/dL (3.2-5.0); Alkaline Phosphatase 149 U/L (45-117); Anion Gap 8 (5-15); BUN 11 mg/dL (7-18); BUN/Creat Ratio 14.1 RATIO (10-20); Calcium,Total 8.9 mg/dL (8.5-10.1); Chloride 107 mmol/L (98-107); Creatinine, Serum 0.78 mg/dL (0.55-1.02); EST Glomerular Filtration Rate 89 mL/min (>60); Est Glom Filt Rate - Afr Amer 108 mL/min (>60); Estimated Creatinine Clearance 83.27 ml/min; Globulin 4.5 g/dL (2.2-4.2); Glucose 99 mg/dL (74-106); LDH 166 U/L (84-246); Potassium 4.2 mmol/L (3.5-5.1); Protein, Total 7.1 g/dL (6.4-8.2); Sodium Level 137 mmol/L (136-145)
[2020-08-15] MEDS: Loperamide 2 MG Capsule 4 MG PO (12:23)
--- NOTE | 2020-08-18 06:50 | OB.TRI.HP_ITS ---
History of Present Illness Date of Service: 08/15/20 Was patient seen by the physician?: No Reason For Visit: RULE OUT PRE-E Date of Service: 08/15/20 Final ELLEN: 09/23/20 Final ELLEN Source: US <20 weeks Gestational age: 34 Weeks and 6 Days History of Present Illness: Patient arrives to triage with diarrhea, nausea, headache. Allergies No Known Allergies Allergy (Verified 08/15/20 09:47) - Pertinent Past Medical History Medical History: Past Medical History (Last Reviewed 04/04/19 @ 14:[address] César Pickens MD) Abnormal Pap smear of cervix mild dysplasia 2018 Anxiety and depression Depression GERD (gastroesophageal reflux disease) Gallstones Hemorrhoid Surgical History: Past Surgical History (Last Updated 04/22/19 @ 14:29 by Marion Hancock) H/O bariatric surgery s/p gastric sleeve 05/07/18 History of colposcopy 2018 History of foot surgery History of laparoscopic cholecystectomy Onset Date: ~04/2019 history of foot fusion Laboratory Studies: Laboratory Tests 08/15/20 08/15/20 Range/Units 11:30 11:30 WBC 7.9 (4.4-11.0) K/mm3 RBC 4.06 L (4.2-5.4) M/mm3 Hgb 10.1 L (12.0-15.0) g/dL Hct 33.2 L (37-47) % MCV 81.8 (81-99) fL MCH 24.9 L (27.0-32.0) pg MCHC 30.4 L (32-36) g/dL RDW Std Deviation 41.9 (35.1-43.9) fl RDW Coeff of Nadya 14.2 (11.6-14.6) % Plt Count 150 (150-450) K/mm3 MPV 11.0 (6.2-12.0) fl Sodium 137 (136-145) mmol/L Potassium 4.2 (3.5-5.1) mmol/L Chloride 107 (98-107) mmol/L Carbon Dioxide 22.0 (21.0-32.0) mmol/L Anion Gap 8 (5-15) BUN 11 (7-18) mg/dL Creatinine 0.78 (0.55-1.02) mg/dL Estim Creat Clear Calc 83.27 ml/min Est GFR (MDRD) Af Amer 108 (>60) mL/min Est GFR (MDRD) Non-Af 89 (>60) mL/min BUN/Creatinine Ratio 14.1 (10-20) RATIO Glucose 99 (74-106) mg/dL Calcium 8.9 (8.5-10.1) mg/dL Total Bilirubin 0.30 (0.20-1.00) mg/dL AST 11 L (15-37) U/L ALT 14 (13-56) U/L Alkaline Phosphatase 149 H (45-117) U/L Lactate Dehydrogenase 166 (84-246) U/L Total Protein 7.1 (6.4-8.2) g/dL Albumin 2.6 L (3.2-5.0) g/dL Globulin 4.5 H (2.2-4.2) g/dL Albumin/Globulin Ratio 0.6 L (0.9-2.4) RATIO Physical Exam Vitals: Vital Signs Temp Pulse BP Pulse Ox 97.8 F 80 134/73 H 100 08/15/20 10:35 08/15/20 12:35 08/15/20 12:35 08/15/20 10:44 NST - FHR Rate Baby A Baseline: 130 Variability:: Moderate Accelerations:: 15 x 15 Decelerations:: None NST Reactive:: Yes Uterine Activity:: intermittent contractions Impression/Plan Patient arrives at 34 weeks and 3 days seen initially in the ER to have elevated blood pressure elevated blood pressures within normal limits. Headache resolved with Fioricet. Patient initial complaint was diarrhea now improved status post IV hydration Imodium and Zofran for nausea. Overall symptoms are likely seco ndary diarrhea secondary to gastroenteritis likely viral in origin. Discharge home and follow-up at scheduled appointments, p.o. hydration and Tylenol if needed, continue Imodium if needed.
== END 2020-08-15 13:00 | disposition home or self-care (01) ==
LOC: WPOUT 10:08 → WP 10:09
PROVIDERS: PCP Internal Medicine; Referring Provider Obstetrics & Gynecology; Visit Provider Obstetrics & Gynecology
DX: O26.893 Other specified pregnancy related conditions, third trimester (principal); R19.7 Diarrhea, unspecified; R11.0 Nausea; K21.9 Gastro-esophageal reflux disease without esophagitis; Z98.84 Bariatric surgery status; Z3A.34 34 weeks gestation of pregnancy
CPT/HCPCS: 96365; 96375; 36415; 59050; 80053; 83615; 85027; 99218; J7120; G0378; J2405

== ENCOUNTER → 2020-08-20 13:00 | Outpatient (CLI) | payer BC, SELFPAY ==
[2020-08-15 10:25] VITALS: BMI 34.7
[2020-08-20 14:55] LABS: Hematocrit 29.4 % (37-47); Hemoglobin 8.8 g/dL (12.0-15.0); Mean Corp Hgb Conc 29.9 g/dL (32-36); Mean Corpuscular Hgb 24.2 pg (27.0-32.0); Platelet Count 146 K/mm3 (150-450); RBC Distribution Width CV 14.4 % (11.6-14.6); RBC Distribution Width SD 42.1 fl (35.1-43.9); Red Blood Count 3.63 M/mm3 (4.2-5.4); White Blood Count 6.8 K/mm3 (4.4-11.0)
[2020-08-20 15:10] LABS: ALB/GLOB Ratio 0.6 RATIO (0.9-2.4); AST(SGOT) 11 U/L (15-37); Alanine Aminotransfer ALT/SGPT 14 U/L (13-56); Albumin, Serum 2.1 g/dL (3.2-5.0); Alkaline Phosphatase 130 U/L (45-117); Anion Gap 7 (5-15); BUN 10 mg/dL (7-18); BUN/Creat Ratio 15.1 RATIO (10-20); Calcium,Total 8.6 mg/dL (8.5-10.1); Chloride 108 mmol/L (98-107); Creatinine, Serum 0.66 mg/dL (0.55-1.02); EST Glomerular Filtration Rate 108 mL/min (>60); Est Glom Filt Rate - Afr Amer 130 mL/min (>60); Globulin 3.8 g/dL (2.2-4.2); Glucose 71 mg/dL (74-106); LDH 152 U/L (84-246); Potassium 4.4 mmol/L (3.5-5.1); Protein, Total 5.9 g/dL (6.4-8.2); Protein, Urine (Random) 28.4 mg/dL (<11.9); Protein:Creat Ratio 113 mg/g CRE (0-200); Sodium Level 139 mmol/L (136-145)
== END ==
PROVIDERS: PCP Internal Medicine; Visit Provider Student in an Organized Health Care Education/Training Program
DX: O13.3 Gestational [pregnancy-induced] hypertension without significant proteinuria, third trimester (principal); Z3A.00 Weeks of gestation of pregnancy not specified
CPT/HCPCS: 36415; 80053; 82570; 83615; 84156; 85027; 87086; 87088

== ENCOUNTER 2020-09-06 12:30 | Inpatient (IN) | payer BC, MEDICAID, SELFPAY ==
[2020-08-15 10:25] VITALS: BMI 34.7
[2020-09-06] VITALS (35 sets, daily range): BP systolic 97–191; BP diastolic 48–109; PULSE 54–76; RESP 16–18; TEMP 36–37.2; O2SAT 94–100; BMI 36.4
[2020-09-06] MEDS: Lactated Ringers 1,000 ML 200 ML IV ×2 (12:12→18:09)
[2020-09-06 12:31] LABS: Hematocrit 28.1 % (37-47); Hemoglobin 8.5 g/dL (12.0-15.0); Mean Corp Hgb Conc 30.2 g/dL (32-36); Mean Corpuscular Hgb 23.9 pg (27.0-32.0); Mean Corpuscular Volume 79.2 fL (81-99); Mean Platelet Vol. 11.4 fl (6.2-12.0); Platelet Count 147 K/mm3 (150-450); RBC Distribution Width CV 14.7 % (11.6-14.6); RBC Distribution Width SD 43.1 fl (35.1-43.9); Red Blood Count 3.55 M/mm3 (4.2-5.4); White Blood Count 6.5 K/mm3 (4.4-11.0)
[2020-09-06 12:31] LABS: Mucous, Urine 0 SEEN /hpf (<or=2+); Red Blood Cells-Urine 0 SEEN /hpf (0-5)
[2020-09-06 12:40] LABS: ALB/GLOB Ratio 0.6 RATIO (0.9-2.4); AST(SGOT) 7 U/L (15-37); Alanine Aminotransfer ALT/SGPT 13 U/L (13-56); Albumin, Serum 2.2 g/dL (3.2-5.0); Alkaline Phosphatase 143 U/L (45-117); Anion Gap 7 (5-15); BUN 8 mg/dL (7-18); BUN/Creat Ratio 11.9 RATIO (10-20); Calcium,Total 8.5 mg/dL (8.5-10.1); Chloride 105 mmol/L (98-107); Creatinine, Serum 0.67 mg/dL (0.55-1.02); EST Glomerular Filtration Rate 106 mL/min (>60); Est Glom Filt Rate - Afr Amer 128 mL/min (>60); Estimated Creatinine Clearance 96.95 ml/min; Glucose 77 mg/dL (74-106); LDH 131 U/L (84-246); Potassium 4.3 mmol/L (3.5-5.1); Protein, Total 6.2 g/dL (6.4-8.2); Sodium Level 136 mmol/L (136-145)
[2020-09-06 12:45] LABS: Protein, Urine (Random) 12.1 mg/dL (<11.9); Protein:Creat Ratio 159 mg/g CRE (0-200)
[2020-09-06] MEDS: Magnesium Sulfate 4gm/100mL 4 GM/100 ML IV.SOLN. IV (12:50)
[2020-09-06 12:53] LABS: Color, Urine Yellow (Yellow); Glucose, Dipstick Normal (Normal); Ketone-Dipstick Negative (Negative); Leukocyte Esterase-Dipstick 500 /ul (Negative); Nitrite-Dipstick Negative (Negative); Occult Blood-Urine Negative /ul (Negative); Protein-Dipstick Negative (Negative); Urine Bilirubin Dipstick Negative (Negative); Urine Clarity Clear (Clear); Urine Urobilinogen Normal (Normal)
[2020-09-06] MEDS: Labetalol (Prefilled) 20 MG/4 ML IV (12:53)
[2020-09-06 13:08] LABS: Bacteria 1+ /hpf (None Seen); Squamous Epithelial Cells - UA 0-5 SEEN /hpf (5-10); White Blood Cells 5-10 SEEN /hpf (0-5)
[2020-09-06 13:20] LABS: Bedside Glucose 71 mg/dL (70-110)
[2020-09-06] MEDS: Magnesium Sulfate 20 GM/500 ML BAG IV ×2 (13:30→22:50)
--- NOTE | 2020-09-06 13:34 | HP.PCM_ITS ---
History and Physical Date of Admission: 09/06/20 Chief complaint: Contractions History of present illness: 34-year-old G2, P1 at 37 weeks and 4 days with ELLEN: 09/23/2020 arrived to triage with contractions with cervix found to be same as previous office check. But patient noted to have elevated blood pressures and started to have a headache. Denies visual changes, chest pain, shortness of breath, nausea vomiting, right upper quadrant pain. Patient states good movement. complicated by AMA, history of gastric sleeve, GDM A1, lupus anticoagulant x1, and now new onset severe preeclampsia Obstetric history: G1: 38-week vacuum-assisted vaginal delivery male 03/17/2019 G2: Current Past medical history: Bariatric surgery, GDM A1, lupus anticoagulant x1, depression, vulvar lichen sclerosus Past surgical history: Gastric sleeve, foot surgery x4, cholecystectomy, Lashaun Kimberly Medications: Wellbutrin, Lovenox, clobetasol cream, fluoxetine, vitamins, DHEA, Lovenox 40 mg daily last dose 09/04/20 Family history: Denies history of DVT or PE Allergies: No known drug allergies Social history: Denies smoking alcohol or drug use Review of systems: Besides above pertinent positives a full review of systems was performed and found to be negative Physical exam: Vital Signs Temp Pulse Resp BP Pulse Ox 09/06/20 13:40 67 172/96 H 09/06/20 13:37 99.0 F 68 16 191/96 H 99 09/06/20 13:34 70 191/96 H 94 09/06/20 13:32 68 97 09/06/20 13:25 66 188/93 H 09/06/20 13:04 67 175/101 H 09/06/20 13:03 65 98 09/06/20 12:58 62 100 09/06/20 12:53 69 187/109 H 100 09/06/20 12:45 68 187/105 H 09/06/20 12:24 72 162/94 H 09/06/20 11:53 67 149/97 H 09/06/20 11:42 72 152/95 H 09/06/20 11:38 68 147/91 H 09/06/20 11:22 98.1 F 60 166/91 H 100 09/06/20 11:10 98.4 F General: Normal normal appearing no acute distress HEENT: Normocephalic atraumatic no cervical of adenopathy Cardiac/respiratory: Nonlabored breathing no use of accessory muscles Abdomen: Soft, nontender, gravid Extremities: No peripheral edema normal peripheral pulses Psych: Normal affect normal demeanor nonpressured speech Mom's Microbiology 09/06/20 12:40 Mucosa - Nose SARS-CoV-2 Antigen (Rapid) - Final Mom's Labs & Results 09/06/20 09/06/20 09/06/20 12:00 12:00 12:00 WBC 6.5 RBC 3.55 L Hgb 8.5 L Hct 28.1 L MCV 79.2 L MCH 23.9 L MCHC 30.2 L RDW Std Deviation 43.1 RDW Coeff of Nadya 14.7 H Plt Count 147 L MPV 11.4 Sodium 136 Potassium 4.3 Chloride 105 Carbon Dioxide 24.0 Anion Gap 7 BUN 8 Creatinine 0.67 Estim Creat Clear Calc 96.95 Est GFR (MDRD) Af Amer 128 Est GFR (MDRD) Non-Af 106 BUN/Creatinine Ratio 11.9 Glucose 77 Calcium 8.5 Total Bilirubin 0.20 AST 7 L ALT 13 Alkaline Phosphatase 143 H Lactate Dehydrogenase 131 Total Protein 6.2 L Albumin 2.2 L Globulin 4.0 Albumin/Globulin Ratio 0.6 L Urine Color Urine Clarity Urine pH Ur Specific [place] Urine Protein Urine Glucose (UA) Urine Ketones Urine Occult Blood Urine Nitrite Urine Bilirubin Urine Urobilinogen Ur Leukocyte Esterase Urine RBC Urine WBC Ur Squamous Epith Cells Urine Bacteria Urine Mucus U Random Total Protein Urine Creatinine Protein/Creatinin Ratio POC Glucose Blood Type O POSITIVE Antibody Screen NEGATIVE 09/06/20 09/06/20 09/06/20 12:25 12:25 13:17 WBC RBC Hgb Hct MCV MCH MCHC RDW Std Deviation RDW Coeff of Nadya Plt Count MPV Sodium Potassium Chloride Carbon Dioxide Anion Gap BUN Creatinine Estim Creat Clear Calc Est GFR (MDRD) Af Amer Est GFR (MDRD) Non-Af BUN/Creatinine Ratio Glucose Calcium Total Bilirubin AST ALT Alkaline Phosphatase Lactate Dehydrogenase Total Protein Albumin Globulin Albumin/Globulin Ratio Urine Color Yellow Urine Clarity Clear Urine pH 6.0 Ur Specific [place] 1.010 Urine Protein Negative Urine Glucose (UA) Normal Urine Ketones Negative Urine Occult Blood Negative Urine Nitrite Negative Urine Bilirubin Negative Urine Urobilinogen Normal Ur Leukocyte Esterase 500 H Urine RBC 0 SEEN Urine WBC 5-10 SEEN Ur Squamous Epith Cells 0-5 SEEN Urine Bacteria 1+ Urine Mucus 0 SEEN U Random Total Protein 12.1 H Urine Creatinine 76.30 Protein/Creatinin Ratio 159 POC Glucose 71 Blood Type Antibody Screen Labs HIV/AIDS Non-Reactive Assessment and plan: 34-year-old G2, P1 at 37 weeks and 4 days originally arrived for rule out labor, ruled out labor no signs of cervical change with contractions. Now with preeclampsia with severe features based on severe range blood pressures. Severe range blood pressures greater than 15 minutes apart noted 20 mg of IV labetalol given, 6 g bolus to run at 2 g an hour started. Based on gestational age and new diagnosis of preeclampsia with severe features for elective primary section, based on patient's history of a large obstetric laceration and severe lichen sclerosis along with elective decision. Patient understands the risk of the procedure include but are not limited to visceral or vascular injury, prolonged hospitalization, blood loss need for transfusion, reoperation, and possible need for C-sections in the future pregnancies. Patient states un derstanding wishes to proceed. All questions answered consent was signed. For 2 g of Ancef and 500 mg of azithromycin. During this assessment patient noted to have again severe range blood pressures repeated in 15 minutes noted to be persistent after 20 mg of IV labetalol, initially ordered labetalol 40 mg IV but after discussion with anesthesia Dr. Walsh will hold based on patient rolling back to the OR within the next 15 to 30 minutes and anesthesia has concerns of hypotension with a combination of IV labetalol and spinal anesthesia. After discussion, this is reasonable assuming the spinal and surgery can commence quickly otherwise will reconsider giving labetalol 40 mg IV. Discussed with patient the both IV medications and p.o. medications for blood pressure control may be necessary including long-term p.o. medications, patient states understanding. GDM A1: Initial blood sugar within normal limits, will repeat fasting operative day 1 Lupus anticoagulant x1: No official diagnosis, repeat 12 weeks apart for diagnosis has not been performed and will be performed . Patient was on Lovenox for this finding, has not had since 09/04/2020. Okay for surgery now History of depression: Currently on Wellbutrin, fluoxetine. Will monitor for depression and need for increased dosing
[2020-09-06] MEDS: Magnesium Sulfate 4gm/100mL 2 GM/50 ML IV.SOLN. IV (13:41)
[2020-09-06] MEDS: Cefazolin 2 GM in 0.9% Normal Saline 100 ML IV (13:50)
[2020-09-06] MEDS: Ondansetron 4 MG/2 ML Vial IV (14:05)
[2020-09-06] MEDS: Oxytocin 30 units/NS 500 ml 30 UNITS/500 ML IV.SOLN 167 UNITS IV (14:55)
--- NOTE | 2020-09-06 14:57 | DCINST_ITS ---
<Santi Vega - Last Filed: 09/06/20 14:57> Discharge Diet: No Restrictions Discharge Activity: Return to Normal Activity, May Drive, May not drive while taking narcotic pain medications., May Shower, - - No tub baths for 2 weeks May resume sexual activity in: 4-6 weeks Lifting Restrictions: No lifting over 25 pounds for 3 weeks Call your doctor if your incision/area has: Continuous Slow Oozing, Foul Smelling Discharge Call your doctor if you observe: Fever of 101 or Higher, Shortness of breath, Chest pain Additional Instructions: If you experience any of the following, contact your healthcare provider. * Bleeding that soaks a pad every hour for 2 hours * Fever 100.4 or higher * Unrelieved incision or abdominal pain * Swelling, redness, discharge or bleeding from your incision or episiotomy site * Your incision begins to separate * Problems urinating (including inability to urinate or burning while urinating). * Visual changes * Severe headache * Flu-like symptoms * Pain or redness in one of both of your breasts * Pain, warmth, tenderness or swelling in your legs, especially the calf area * Frequent nausea and vomiting * Symptoms of depression or anxiety If you experience any of the following, call 911 or go to the nearest Emergency Room. * Chest pain * Problems breathing * Seizure activity * Partial or complete paralysis of a body part, slurred speech, weakness or drooping of the face, or a sudden inability to walk or hold your balance Allergies/Adverse Reactions: Allergies No Known Allergies Allergy (Verified 09/06/20 11:11) Medications to take at Discharge Fluoxetine [Prozac] 80 mg PO DAILY 05/23/18 Cyanocobalamin (Vitamin B-12) [Vitamin B-12] 5,000 mcg PO DAILY 04/08/19 Iron Carbonyl [Feosol] 65 mg PO BID 04/08/19 Vits [Prenatabs FA] 1 tab PO DAILY 04/08/19 Butalb/Acetaminophen/Caffeine [Fioricet 50-300-40 mg Capsule] PRN 08/15/20 Enoxaparin Sodium [Lovenox] 40 mg SQ 08/15/20 Famotidine [Pepcid] 40 mg PO DAILY 08/15/20 buPROPion SR [Wellbutrin SR (150mg tablets)] 150 mg PO DAILY 08/15/20 Oxycodone [Oxyir] 5 mg PO Q6H PRN PRN 4 Days #16 tab 09/06/20 The following prescriptions were given: Oxycodone [Oxyir] 5 mg PO Q6H PRN PRN 4 Days #16 tab PRN Reason: Pain Score 6-10 Transmission Status: Received by [id number] Follow-Up: Call to make an appointment with your doctor for an incision check in 1-2 weeks. You will also need a 6 week post- follow up appointment. Test results from this visit will be discussed in further detail at your follow- up appointment, if applicable. Please Follow Up With: Una Vega DO When: 1 week for blood pressure check, 2 weeks post operative visit Primary Care Physician: Michael Cummings MD [Primary Care Provider] - <Una Vega - Last Filed: 09/09/20 07:20> Additional Instructions: If you experience any of the following, contact your healthcare provider. * Bleeding that soaks a pad every hour for 2 hours * Fever 100.4 or higher * Unrelieved incision or abdominal pain * Swelling, redness, discharge or bleeding from your incision or episiotomy site * Your incision begins to separate * Problems urinating (including inability to urinate or burning while urinating). * Visual changes * Severe headache * Flu-like symptoms * Pain or redness in one of both of your breasts * Pain, warmth, tenderness or swelling in your legs, especially the calf area * Frequent nausea and vomiting * Symptoms of depression or anxiety If you experience any of the following, call 911 or go to the nearest Emergency Room. * Chest pain * Problems breathing * Seizure activity * Partial or complete paralysis of a body part, slurred speech, weakness or drooping of the face, or a sudden inability to walk or hold your balance Follow-Up: Call to make an appointment with your doctor for an incision check in 1-2 weeks. You will also need a 6 week post- follow up appointment. Test results from this visit will be discussed in further detail at your follow- up appointment, if applicable. When: 1 week for RN blood pressure check, 2 weeks post operative visit
--- NOTE | 2020-09-06 15:00 | PCM.OPRPT ---
Delivery nitric acid concentrator operator: Emily Moody Date of Procedure: 09/06/20 Pre-Operative Diagnosis: Term, severe eclampsia, elective Post-Operative Diagnosis: Term, severe preeclampsia, elective Description of Procedure: Procedure: Primary section Via Pfannenstiel incision Surgeon: Santi Vega MD Anesthesia: Spinal EBL: 600 cc IV fluids: 1000 cc Urine output: 300 cc Complications: None Specimen: None Findings: Male in vertex position, Apgars 9/10. Normal uterus, tubes, and ovaries. Consent: Patient arrived with contractions rule out labor, labor ruled out. Patient with severe range blood pressures requiring 40 mg of IV labetalol and magnesium 6 g bolus was given, diagnosed with preeclampsia with severe features based on severe range blood pressures. Patient desires elective primary section Via Pfannenstiel incision with history of large vaginal laceration, severe lichen sclerosis. Patient understands the risk of the procedure includes but is not limited to visceral or vascular injury, prolonged hospitalization, blood loss need for transfusion, reoperation, and possible need for future sections with future pregnancies. Patient states understanding wish to proceed. All questions were answered consent was signed. Procedure: Patient was brought back to the OR where spinal anesthesia found to be adequate. 2 g of Ancef and 500 mg of azithromycin were given for infection prophylaxis. Patient was prepared and draped in a dorsal supine position with leftward tilt. A Pfannenstiel incision was made at the skin with a scalpel. Incision was carried down to the fascia. The fascia was excised and extended laterally. Rectus and terminalis muscle were dissected off the fascia bluntly. Superior fascia was from the rectus muscle bluntly. Peritoneum was entered bluntly. Peritoneum was extended superiorly and inferiorly with good visualization of bladder. Bladder blade was inserted and vesicouterine peritoneum was identified. A low transverse hysterotomy was made. Hand was placed into the hysterotomy and gentle fundal pressure was applied once the head was brought into the incision and the bladder blade was removed. Head and shoulders were delivered with ease. Cord was cut and clamped. Baby handed off to nursing. Placenta was delivered via fundal massage and cord traction. IV oxytocin was initiated to facilitate uterine contractions. Uterus was exteriorized and wiped out with dry laparotomy sponge in order to remove remaining placental membranes. Uterus was closed in a continuous running fashion. Second layer was performed. Left uterine vessel noted to have laceration left [place] stitch was placed. Good hemostasis was noted. Uterus was placed back in the abdominal cavity. Above findings were noted. Good hemostasis was noted. Muscle layer was closed with horizontal mattress sutures. Fascia was closed in continuous running fashion. Skin was closed in a subcuticular fashion. All counts correct x2. Patient tolerated procedure well was brought to recovery in stable condition. We will continue magnesium for 24 hours, every 6 hours magnesium checks.
[2020-09-06] MEDS: Ketorolac 30 MG/ML Syringe IV ×2 (15:43→21:43)
[2020-09-06] MEDS: Acetaminophen 500 MG Tablet 1000 MG PO ×2 (16:59→23:19)
[2020-09-06] MEDS: Lactated Ringers 1,000 ML 100 ML IV (18:00)
[2020-09-06 19:23] LABS: Magnesium 5.7 mg/dL (1.6-2.6)
[2020-09-06] MEDS: DiphenhydrAMINE 25 MG Capsule PO (22:48)
[2020-09-07] VITALS (20 sets, daily range): BP systolic 95–121; BP diastolic 55–76; PULSE 53–67; RESP 14–18; TEMP 35.5–36.6; O2SAT 96–100
--- NOTE | 2020-09-07 00:55 | NURSING ---
upon rounding pt states that she is still itchy after taking Benadryl and desires other medication intervention if available; this RN called anesthesia and consulted on other itch relief options other then Benadryl and at this time Dr. Walsh states no other medication options available to give pt. pt updated on plan and verbalizes understanding and okay with waiting for next Benadryl dose.
[2020-09-07 01:39] LABS: Magnesium 6.5 mg/dL (1.6-2.6)
[2020-09-07] MEDS: Ketorolac 30 MG/ML Syringe IV ×2 (03:57→09:41)
[2020-09-07] MEDS: Acetaminophen 500 MG Tablet 1000 MG PO ×3 (05:05→18:04)
[2020-09-07] MEDS: Enoxaparin 40 MG/0.4 ML Syringe SC (06:18)
[2020-09-07 06:47] LABS: Absolute Lymphocyte Count 0.82 X10^3/uL (0.83-4.51); Absolute Neutrophil Count 4.3 X10^3/uL (2.0-7.7); Basophil# 0.01 X10^3/uL; Basophil% 0.2 % (0-1); Eosinophil# 0.06 X10^3/uL; Eosinophils% 1.1 % (0-5); Hematocrit 22.4 % (37-47); Hemoglobin 6.8 g/dL (12.0-15.0); Lymphocyte # 0.82 X10^3/ul (4.0); Lymphocyte % 14.9 % (19-41); Mean Corp Hgb Conc 30.4 g/dL (32-36); Mean Corpuscular Hgb 23.9 pg (27.0-32.0); Mean Corpuscular Volume 78.9 fL (81-99); Mean Platelet Vol. 10.9 fl (6.2-12.0); Monocyte# 0.29 X10^3/uL; Monocyte% 5.3 % (0-10); NRBC Flagged by Analyzer 0 % (0-5); Neutrophil # 4.31 X10^3/uL (2.7-7.7); Platelet Count 136 K/mm3 (150-450); Red Blood Count 2.84 M/mm3 (4.2-5.4); White Blood Count 5.5 K/mm3 (4.4-11.0)
[2020-09-07 06:55] LABS: Bedside Glucose 82 mg/dL (70-110)
[2020-09-07 07:16] LABS: ALB/GLOB Ratio 0.5 RATIO (0.9-2.4); AST(SGOT) 15 U/L (15-37); Alanine Aminotransfer ALT/SGPT 12 U/L (13-56); Albumin, Serum 1.8 g/dL (3.2-5.0); Alkaline Phosphatase 114 U/L (45-117); Anion Gap 5 (5-15); BUN 7 mg/dL (7-18); BUN/Creat Ratio 11.3 RATIO (10-20); Calcium,Total 6.7 mg/dL (8.5-10.1); Chloride 102 mmol/L (98-107); Creatinine, Serum 0.62 mg/dL (0.55-1.02); EST Glomerular Filtration Rate 116 mL/min (>60); Est Glom Filt Rate - Afr Amer 141 mL/min (>60); Estimated Creatinine Clearance 104.76 ml/min; Globulin 3.3 g/dL (2.2-4.2); Glucose 82 mg/dL (74-106); LDH 182 U/L (84-246); Magnesium 7.2 mg/dL (1.6-2.6); Potassium 4.1 mmol/L (3.5-5.1); Protein, Total 5.1 g/dL (6.4-8.2); Sodium Level 132 mmol/L (136-145)
--- NOTE | 2020-09-07 08:30 | PCM.PN.OB ---
Subjective: No overnight complaints. Pain well controlled. - Physical Exam Vitals/I&O's: Vital Signs Temp Pulse Resp BP Pulse Ox 97.4 F L 57 L 16 102/64 99 09/07/20 07:30 09/07/20 07:30 09/07/20 07:30 09/07/20 07:30 09/07/20 07:30 Oxygen Delivery Method Room Air Weight: 205 lb 11.06 oz Body Mass Index (BMI) 36.4 Finger Stick Blood Glucose 96 Intake and Output for Last 24 Hours 09/05/20 09/06/20 09/07/20 23:59 23:59 23:59 Intake Total 2727.50 / 2727.50 699.99 / 699.99 Output Total 1650 / 1650 1150 / 1150 Balance 1077.50 / 1077.50 -450.01 / -450.01 General: Alert, Oriented x3, Cooperative, No apparent distress HEENT: Atraumatic, Normocephalic Oral: Moist Mucosa Neck: Supple Abdomen: Soft, Non Tender, - - Bandage clean dry and intact Extremities: No clubbing, No cyanosis, No edema Neurological: Neuro grossly intact Psych/Mental Status: Normal Affect, Appropriate, Alert and oriented to time, place, person, mood and affect Microbiology Past 72 Hours 09/06/20 12:40 Mucosa - Nose SARS-CoV-2 Antigen (Rapid) - Final Laboratory Results 09/06/20 12:00: WBC 6.5, RBC 3.55 L, Hgb 8.5 L, Hct 28.1 L, MCV 79.2 L, MCH 23.9 L, MCHC 30.2 L, RDW Std Deviation 43.1, RDW Coeff of Nadya 14.7 H, Plt Count 147 L, MPV 11.4 09/06/20 12:00: Sodium 136, Potassium 4.3, Chloride 105, Carbon Dioxide 24.0, Anion Gap 7, BUN 8, Creatinine 0.67, Estim Creat Clear Calc 96.95, Est GFR (MDRD) Af Amer 128, Est GFR (MDRD) Non-Af 106, BUN/Creatinine Ratio 11.9, Glucose 77, Calcium 8.5, Total Bilirubin 0.20, AST 7 L, ALT 13, Alkaline Phosphatase 143 H, Lactate Dehydrogenase 131, Total Protein 6.2 L, Albumin 2.2 L, Globulin 4.0, Albumin/Globulin Ratio 0.6 L 09/06/20 12:00: Blood Type O POSITIVE, Antibody Screen NEGATIVE 09/06/20 12:25: U Random Total Protein 12.1 H, Urine Creatinine 76.30, Protein/Creatinin Ratio 159 09/06/20 12:25: Urine Color Yellow, Urine Clarity Clear, Urine pH 6.0, Ur Specific [place] 1.010, Urine Protein Negative, Urine Glucose (UA) Normal, Urine Ketones Negative, Urine Occult Blood Negative, Urine Nitrite Negative, Urine Bilirubin Negative, Urine Urobilinogen Normal, Ur Leukocyte Esterase 500 H, Urine RBC 0 SEEN, Urine WBC 5-10 SEEN, Ur Squamous Epith Cells 0-5 SEEN, Urine Bacteria 1+, Urine Mucus 0 SEEN 09/06/20 13:17: POC Glucose 71 09/06/20 18:45: Magnesium 5.7 H* 09/07/20 01:15: Magnesium 6.5 H* 09/07/20 06:25: WBC 5.5, RBC 2.84 L, Hgb 6.8 L, Hct 22.4 L, MCV 78.9 L, MCH 23.9 L, MCHC 30.4 L, RDW Std Deviation 43.0, RDW Coeff of Nadya 15.0 H, Plt Count 136 L, MPV 10.9, Immature Gran % (Auto) 0.500, Neut % (Auto) 78.0 H, Lymph % (Auto) 14.9 L, [place] % (Auto) 5.3, Eos % (Auto) 1.1, Baso % (Auto) 0.2, Absolute Neuts (auto) 4.3, Absolute Lymphs (auto) 0.82 L, Nucleated RBC % 0 09/07/20 06:25: Sodium 132 L, Potassium 4.1, Chloride 102, Carbon Dioxide 25.0, Anion Gap 5, BUN 7, Creatinine 0.62, Estim Creat Clear Calc 104.76, Est GFR (MDRD) Af Amer 141, Est GFR (MDRD) Non-Af 116, BUN/Creatinine Ratio 11.3, Glucose 82, Calcium 6.7 L, Magnesium 7.2 H*, Total Bilirubin 0.20, AST 15, ALT 12 L, Alkaline Phosphatase 114, Lactate Dehydrogenase 182, Total Protein 5.1 L, Albumin 1.8 L, Globulin 3.3, Albumin/Globulin Ratio 0.5 L 09/07/20 06:25: POC Glucose 82 Current Medications Acetaminophen (Acetaminophen 500 Mg Tablet) 1,000 mg PO Q6H [facility] Last Admin: 09/07/20 05:05 Dose: 1,000 mg Documented by: Bisacodyl (Bisacodyl 10 Mg Suppository) 10 mg RC UD PRN PRN Reason: If no BM Diphenhydramine HCl (Diphenhydramine 25 Mg Capsule) 25 mg PO BID PRN PRN PRN Reason: ITCHING Last Admin: 09/06/20 22:48 Dose: 25 mg Documented by: Enoxaparin Sodium (Enoxaparin 40 Mg/0.4 Ml Syringe) 40 mg SC DAILY@0600 [facility] Last Admin: 09/07/20 06:18 Dose: 40 mg Documented by: Hydrocortisone (Hydrocortisone 2.5% Crm) 1 applic TOPICAL TID PRN PRN; Protocol PRN Reason: Discomfort Magnesium Sulfate (20gm/500ml) 20 gm in 500 mls @ 50 mls/hr IV .Q10H [facility]; Protocol Last Infusion: 09/07/20 07:30 Dose: 2 gm/hr, 50 mls/hr Documented by: Lactated Ringer's () 1,000 mls @ 100 mls/hr IV .Q10H [facility] Last Infusion: 09/06/20 19:30 Dose: 50 mls/hr Documented by: Ibuprofen (Ibuprofen 600 Mg Tablet) 600 mg PO Q6H [facility] Influenza Virus Vaccine Quadrival (Influenza Vaccine (6mos+)/Pf 0.5 Ml Syringe) 0.5 ml IM .ONCE ONE Stop: 09/07/20 10:01 Ketorolac Tromethamine (Ketorolac 30 Mg/Ml Syringe) 30 mg IV Q6H [facility] Stop: 09/07/20 09:31 Last Admin: 09/07/20 03:57 Dose: 30 mg Documented by: Ondansetron HCl (Ondansetron 4 Mg/2 Ml Vial) 4 mg IV Q4H PRN PRN PRN Reason: Nausea Last Admin: 09/06/20 14:05 Dose: 4 mg Documented by: Oxycodone HCl (Oxycodone 5 Mg Tablet) 5 - 10 mg PO Q4H PRN PRN PRN Reason: Pain Score 4-10 Prochlorperazine Edisylate (Prochlorperazine 10 Mg/2 Ml Vial) 10 mg IV Q6H PRN PRN PRN Reason: NAUSEA Senna/Docusate Sodium (Senna/Docusate Sodium 1 Tablet) 0 tablet PO DAILY [facility]AN[facility] Simethicone (Simethicone 80 Mg Tablet) 80 mg PO PCHS PRN PRN Reason: Indigestion/stomach pain Sodium Chloride (0.9% Saline Lock 10 Ml Syringe) 5 - 15 ml IV UD PRN PRN Reason: SALINE FLUSH Medical Necessity - Tobacco Use Smoking Status: Never smoker Assessment/Plan All Active Problems (Last Reviewed 04/04/19 @ 14:[address] César Pickens MD) Elevated blood pressure reading in office with diagnosis of hypertension (Acute) Maternal hypertension affecting puerperium (Acute) Calculus of gallbladder without cholecystitis without obstruction (Acute) RUQ abdominal pain (Acute) Cholelithiasis affecting in third trimester, antepartum (Acute) IUGR (intrauterine growth restriction) (Acute) 38 weeks gestation of (Acute) Postop day 1 status post elective primary section. Pain well controlled, history of gastric sleeve okay for oral NSAIDs and IV Toradol. GDM A1 fasting blood sugar within normal limits, will follow with 2-hour GTT. Preeclampsia with severe features based on severe range blood pressures, magnesium at 2 g an hour with therapeutic mag levels. We will continue until 24-hour juan this afternoon then DC magnesium. Currently not on p.o. blood pressure medications but will continue to monitor. Will need monitor until postop day 3-4, and will need 1 week blood pressure check in our office. Continue HELLP labs daily. Patient with acute on chronic anemia 6.8, asymptomatic vital signs stable. Discussed with patient we will transfuse 1 unit of packed red blood cells today, risk benefits alternatives including risk of infection and blood transfusion reactions discussed. Patient states understanding wish to proceed.
[2020-09-07] MEDS: Magnesium Sulfate 20 GM/500 ML BAG IV (08:47)
[2020-09-07] MEDS: Senna/Docusate Sodium 1 Tablet PO (09:41)
[2020-09-07] MEDS: 0.9% Saline Lock 10 ML Syringe IV ×2 (09:42→14:35)
--- NOTE | 2020-09-07 11:54 | NURSING ---
No adverse reactions reported by patient during transfusion - rate increased from 15mL/hour to 200mL/hour after 15 minutes.
--- NOTE | 2020-09-07 13:28 | NURSING ---
Flushing PRBC's with 0.9% NS after trasfusion.
[2020-09-07 13:29] LABS: Magnesium 7.7 mg/dL (1.6-2.6)
[2020-09-07] MEDS: Ibuprofen 600 MG Tablet PO ×2 (15:29→21:41)
[2020-09-07] MEDS: FLUoxetine 20 MG Capsule 80 MG PO (16:54)
[2020-09-07] MEDS: oxyCODONE 5 MG Tablet PO (18:26)
--- NOTE | 2020-09-07 18:30 | CASEMGMT ---
Social Work Brief Assessment Labor and Delivery Unit Refer documentation below for further details. Date of Referral/Notification: 09/07/20 Time of Referral: 16:16 Reason for Referral: MOB with history of anxiety and depression Date of Intervention: 09/07/20 Time of Intervention: 18:20 Informant: Medical record and mother of baby (MOB) Assessment: Met with MOB and Gelacio MEYERS in room. Introduced role and reason for referral. MOB openly discussed history of anxiety and depression and is treated with Prozac and Wellbutrin. KELSIE states baby boy, Rubi Lovell is her 2nd child. KELSIE white has an 18 month old at home, [place]. KELSIE reports good support from family and friends. KELSIE white has been active with counseling in the past through [facility]. KELSIE white counselor is . KELSIE white if needed, knows she can call to set up appointment. MOB denies any issues or concerns. Nursing updated on assessment. No additional concerns reported. Plan: Home with resources provided No further needs requested or indicated. Rolf Mcfarland, CAD DRAFTSMAN, DOCK LOADER
[2020-09-07] MEDS: buPROPion (SR) 150 MG Tablet.SA PO (21:41)
[2020-09-08] VITALS (7 sets, daily range): BP systolic 129–142; BP diastolic 62–87; PULSE 61–73; RESP 16; TEMP 35.9–37; O2SAT 98–99
[2020-09-08] MEDS: Acetaminophen 500 MG Tablet 1000 MG PO ×4 (00:24→20:28)
[2020-09-08] MEDS: Ibuprofen 600 MG Tablet PO ×4 (02:55→21:50)
[2020-09-08] MEDS: Enoxaparin 40 MG/0.4 ML Syringe SC (05:47)
[2020-09-08 06:13] LABS: Absolute Lymphocyte Count 0.93 X10^3/uL (0.83-4.51); Basophil# 0.01 X10^3/uL; Basophil% 0.2 % (0-1); Eosinophil# 0.06 X10^3/uL; Eosinophils% 1.2 % (0-5); Hematocrit 28.3 % (37-47); Hemoglobin 8.4 g/dL (12.0-15.0); Lymphocyte # 0.93 X10^3/ul (4.0); Lymphocyte % 17.9 % (19-41); Mean Corp Hgb Conc 29.7 g/dL (32-36); Mean Corpuscular Hgb 24.1 pg (27.0-32.0); Mean Corpuscular Volume 81.1 fL (81-99); Mean Platelet Vol. 10.7 fl (6.2-12.0); Monocyte# 0.22 X10^3/uL; Monocyte% 4.2 % (0-10); NRBC Flagged by Analyzer 0 % (0-5); Neutrophil # 3.95 X10^3/uL (2.7-7.7); Neutrophil % 75.9 % (47-70); Platelet Count 171 K/mm3 (150-450); RBC Distribution Width CV 15.7 % (11.6-14.6); RBC Distribution Width SD 45.1 fl (35.1-43.9); Red Blood Count 3.49 M/mm3 (4.2-5.4); White Blood Count 5.2 K/mm3 (4.4-11.0)
[2020-09-08 06:52] LABS: ALB/GLOB Ratio 0.5 RATIO (0.9-2.4); AST(SGOT) 17 U/L (15-37); Alanine Aminotransfer ALT/SGPT 13 U/L (13-56); Alkaline Phosphatase 121 U/L (45-117); Anion Gap 6 (5-15); BUN 8 mg/dL (7-18); BUN/Creat Ratio 10.5 RATIO (10-20); Calcium,Total 7.2 mg/dL (8.5-10.1); Chloride 107 mmol/L (98-107); Creatinine, Serum 0.76 mg/dL (0.55-1.02); EST Glomerular Filtration Rate 91 mL/min (>60); Est Glom Filt Rate - Afr Amer 110 mL/min (>60); Estimated Creatinine Clearance 85.47 ml/min; Globulin 3.9 g/dL (2.2-4.2); Glucose 69 mg/dL (74-106); LDH 300 U/L (84-246); Potassium 4.3 mmol/L (3.5-5.1); Protein, Total 5.9 g/dL (6.4-8.2); Sodium Level 137 mmol/L (136-145)
[2020-09-08] MEDS: oxyCODONE 5 MG Tablet PO ×2 (07:58→16:47)
[2020-09-08] MEDS: FLUoxetine 20 MG Capsule 80 MG PO (08:00)
[2020-09-08] MEDS: Senna/Docusate Sodium 1 Tablet PO (08:00)
[2020-09-08] MEDS: buPROPion (SR) 150 MG Tablet.SA PO ×2 (08:03→21:51)
--- NOTE | 2020-09-08 08:22 | PCM.PN.OB ---
Subjective: No overnight complaints. Pain well controlled. Denies headache, visual changes, chest pain, shortness of breath, nausea vomiting, right upper quadrant pain. - Physical Exam Vitals/I&O's: Vital Signs Temp Pulse Resp BP Pulse Ox 96.6 F L 73 16 142/85 H 99 09/08/20 08:08 09/08/20 08:08 09/08/20 08:08 09/08/20 08:08 09/08/20 08:08 Oxygen Delivery Method Room Air Weight: 205 lb 11.06 oz Body Mass Index (BMI) 36.4 Finger Stick Blood Glucose 96 Intake and Output for Last 24 Hours 09/06/20 09/07/20 09/08/20 23:59 23:59 23:59 Intake Total 2727.50 / 2727.50 2054.99 / 2054.99 Output Total 1650 / 1650 3400 / 3400 Balance 1077.50 / 1077.50 -1345.01 / -1345.01 General: Alert, Oriented x3, Cooperative, No apparent distress HEENT: Atraumatic, Normocephalic Oral: Moist Mucosa Neck: Supple Abdomen: Soft, - - Appropriately tender. Bandage clean dry and intact Extremities: No clubbing, No cyanosis, No edema Neurological: Neuro grossly intact Psych/Mental Status: Normal Affect, Appropriate, Alert and oriented to time, place, person, mood and affect Microbiology Past 72 Hours 09/06/20 12:40 Mucosa - Nose SARS-CoV-2 Antigen (Rapid) - Final Laboratory Results 09/06/20 12:00: Crossmatch See Detail 09/07/20 12:45: Magnesium 7.7 H* 09/08/20 05:55: WBC 5.2, RBC 3.49 L, Hgb 8.4 L, Hct 28.3 L, MCV 81.1, MCH 24.1 L, MCHC 29.7 L, RDW Std Deviation 45.1 H, RDW Coeff of Nadya 15.7 H, Plt Count 171, MPV 10.7, Immature Gran % (Auto) 0.600, Neut % (Auto) 75.9 H, Lymph % (Auto) 17.9 L, [place] % (Auto) 4.2, Eos % (Auto) 1.2, Baso % (Auto) 0.2, Absolute Neuts (auto) 4.0, Absolute Lymphs (auto) 0.93, Nucleated RBC % 0 09/08/20 05:55: Sodium 137, Potassium 4.3, Chloride 107, Carbon Dioxide 24.0, Anion Gap 6, BUN 8, Creatinine 0.76, Estim Creat Clear Calc 85.47, Est GFR (MDRD) Af Amer 110, Est GFR (MDRD) Non-Af 91, BUN/Creatinine Ratio 10.5, Glucose 69 L, Calcium 7.2 L, Total Bilirubin 0.20, AST 17, ALT 13, Alkaline Phosphatase 121 H, Lactate Dehydrogenase 300 H, Total Protein 5.9 L, Albumin 2.0 L, Globulin 3.9, Albumin/Globulin Ratio 0.5 L Current Medications Acetaminophen (Acetaminophen 500 Mg Tablet) 1,000 mg PO Q6H [facility] Last Admin: 09/08/20 08:00 Dose: 1,000 mg Documented by: Bisacodyl (Bisacodyl 10 Mg Suppository) 10 mg RC UD PRN PRN Reason: If no BM Bupropion HCl (Bupropion (Sr) 150 Mg Tablet.Sa) 150 mg PO BID [facility] Last Admin: 09/08/20 08:03 Dose: 150 mg Documented by: Diphenhydramine HCl (Diphenhydramine 25 Mg Capsule) 25 mg PO BID PRN PRN PRN Reason: ITCHING Last Admin: 09/06/20 22:48 Dose: 25 mg Documented by: Enoxaparin Sodium (Enoxaparin 40 Mg/0.4 Ml Syringe) 40 mg SC DAILY@0600 [facility] Last Admin: 09/08/20 05:47 Dose: 40 mg Documented by: Fluoxetine HCl (Fluoxetine 20 Mg Capsule) 80 mg PO DAILY [facility] Last Admin: 09/08/20 08:00 Dose: 80 mg Documented by: Hydrocortisone (Hydrocortisone 2.5% Crm) 1 applic TOPICAL TID PRN PRN; Protocol PRN Reason: Discomfort Ibuprofen (Ibuprofen 600 Mg Tablet) 600 mg PO Q6H [facility] Last Admin: 09/08/20 02:55 Dose: 600 mg Documented by: Influenza Virus Vaccine Quadrival (Influenza Vaccine (6mos+)/Pf 0.5 Ml Syringe) 0.5 ml IM .ONCE ONE Stop: 09/08/20 10:01 Ondansetron HCl (Ondansetron 4 Mg/2 Ml Vial) 4 mg IV Q4H PRN PRN PRN Reason: Nausea Last Admin: 09/06/20 14:05 Dose: 4 mg Documented by: Oxycodone HCl (Oxycodone 5 Mg Tablet) 5 - 10 mg PO Q4H PRN PRN PRN Reason: Pain Score 4-10 Last Admin: 09/08/20 07:58 Dose: 5 mg Documented by: Prochlorperazine Edisylate (Prochlorperazine 10 Mg/2 Ml Vial) 10 mg IV Q6H PRN PRN PRN Reason: NAUSEA Senna/Docusate Sodium (Senna/Docusate Sodium 1 Tablet) 0 tablet PO DAILY [facility] Last Admin: 09/08/20 08:00 Dose: 1 tablet Documented by: Simethicone (Simethicone 80 Mg Tablet) 80 mg PO PCHS PRN PRN Reason: Indigestion/stomach pain Sodium Chloride (0.9% Saline Lock 10 Ml Syringe) 5 - 15 ml IV UD PRN PRN Reason: SALINE FLUSH Last Admin: 09/07/20 14:35 Dose: 5 ml Documented by: Medical Necessity - Tobacco Use Smoking Status: Never smoker Assessment/Plan All Active Problems (Last Reviewed 04/04/19 @ 14:[address] César Pickens MD) Elevated blood pressure reading in office with diagnosis of hypertension (Acute) Maternal hypertension affecting puerperium (Acute) Calculus of gallbladder without cholecystitis without obstruction (Acute) RUQ abdominal pain (Acute) Cholelithiasis affecting in third trimester, antepartum (Acute) IUGR (intrauterine growth restriction) (Acute) 38 weeks gestation of (Acute) Postoperative day 2 status post elective primary section. Severe preeclampsia based on severe range blood pressures status post 24 hours of magnesium. Patient is asymptomatic. BPs within normal limits. We will continue to monitor patient until postop day 3 today for and start p.o. antihypertensive medications if needed. Acute on chronic anemia status post 1 unit of packed red blood cells with previous hemoglobin of 6.8 now 8.4 today and asymptomatic vital signs stable. GDM A1, fasting blood sugar stable. Will follow with 2-hour gtt.
[2020-09-08] MEDS: NIFEdipine 30 MG Tablet PO (11:13)
[2020-09-09 02:27] VITALS: BP 136/79; PULSE 63; RESP 16; TEMP 36.6
[2020-09-09] MEDS: Acetaminophen 500 MG Tablet 1000 MG PO ×2 (02:28→08:58)
[2020-09-09] MEDS: Ibuprofen 600 MG Tablet PO ×2 (04:19→08:59)
[2020-09-09] MEDS: Enoxaparin 40 MG/0.4 ML Syringe SC (05:54)
[2020-09-09 06:09] LABS: Absolute Lymphocyte Count 0.81 X10^3/uL (0.83-4.51); Absolute Neutrophil Count 4.3 X10^3/uL (2.0-7.7); Eosinophil# 0.19 X10^3/uL; Eosinophils% 3.4 % (0-5); Hemoglobin 7.8 g/dL (12.0-15.0); Lymphocyte # 0.81 X10^3/ul (4.0); Lymphocyte % 14.5 % (19-41); Mean Corpuscular Hgb 24.6 pg (27.0-32.0); Mean Platelet Vol. 10.4 fl (6.2-12.0); Monocyte% 5.4 % (0-10); NRBC Flagged by Analyzer 0 % (0-5); Neutrophil # 4.27 X10^3/uL (2.7-7.7); Neutrophil % 76.2 % (47-70); Platelet Count 166 K/mm3 (150-450); RBC Distribution Width CV 15.9 % (11.6-14.6); Red Blood Count 3.17 M/mm3 (4.2-5.4); White Blood Count 5.6 K/mm3 (4.4-11.0)
[2020-09-09 06:36] LABS: ALB/GLOB Ratio 0.6 RATIO (0.9-2.4); AST(SGOT) 17 U/L (15-37); Alanine Aminotransfer ALT/SGPT 12 U/L (13-56); Alkaline Phosphatase 101 U/L (45-117); Anion Gap 5 (5-15); BUN 9 mg/dL (7-18); BUN/Creat Ratio 12.9 RATIO (10-20); Calcium,Total 8.4 mg/dL (8.5-10.1); Chloride 108 mmol/L (98-107); EST Glomerular Filtration Rate 101 mL/min (>60); Est Glom Filt Rate - Afr Amer 123 mL/min (>60); Estimated Creatinine Clearance 92.79 ml/min; Globulin 3.6 g/dL (2.2-4.2); Glucose 72 mg/dL (74-106); LDH 200 U/L (84-246); Potassium 4.5 mmol/L (3.5-5.1); Protein, Total 5.6 g/dL (6.4-8.2); Sodium Level 139 mmol/L (136-145)
[2020-09-09 07:38] VITALS: BP 137/80; PULSE 60; RESP 16; TEMP 36.7; O2SAT 97
--- NOTE | 2020-09-09 08:26 | PCM.PN.OB ---
Subjective: POD#3 Feeling well. Has some soreness. Lochia minimal. - Physical Exam Vitals/I&O's: Vital Signs Temp Pulse Resp BP Pulse Ox 98.1 F 60 16 137/80 H 97 09/09/20 07:38 09/09/20 07:38 09/09/20 07:38 09/09/20 07:38 09/09/20 07:38 Oxygen Delivery Method Room Air Weight: 93.3 kg Body Mass Index (BMI) 36.4 Finger Stick Blood Glucose 96 Intake and Output for Last 24 Hours 09/07/20 09/08/20 09/09/20 23:59 23:59 23:59 Intake Total 2054.99 / 2054.99 Output Total 3400 / 3400 Balance -1345.01 / -1345.01 General: Alert, Oriented x3, No apparent distress HEENT: Atraumatic, Normocephalic Neck: Supple Lungs: Clear to auscultation, Normal air movement Cardiovascular: Regular rate, Regular Rhythm Abdomen: Soft - mildly tender. Dressing c/d. Uterus 2 cm below umbilicus. Extremities: No edema Skin: No rashes Neurological: Cranial nerves II-XII grossly intact, Deep Tendon Reflexes 2+/4 and Symmetrical, Neuro grossly intact Psych/Mental Status: Normal Affect, Appropriate Microbiology Past 72 Hours 09/06/20 12:40 Mucosa - Nose SARS-CoV-2 Antigen (Rapid) - Final Laboratory Results 09/09/20 06:00: WBC 5.6, RBC 3.17 L, Hgb 7.8 L, Hct 26.0 L, MCV 82.0, MCH 24.6 L, MCHC 30.0 L, RDW Std Deviation 47.0 H, RDW Coeff of Nadya 15.9 H, Plt Count 166, MPV 10.4, Immature Gran % (Auto) 0.500, Neut % (Auto) 76.2 H, Lymph % (Auto) 14.5 L, [place] % (Auto) 5.4, Eos % (Auto) 3.4, Baso % (Auto) 0.0, Absolute Neuts (auto) 4.3, Absolute Lymphs (auto) 0.81 L, Nucleated RBC % 0 09/09/20 06:00: Sodium 139, Potassium 4.5, Chloride 108 H, Carbon Dioxide 26.0, Anion Gap 5, BUN 9, Creatinine 0.70, Estim Creat Clear Calc 92.79, Est GFR (MDRD) Af Amer 123, Est GFR (MDRD) Non-Af 101, BUN/Creatinine Ratio 12.9, Glucose 72 L, Calcium 8.4 L, Total Bilirubin 0.20, AST 17, ALT 12 L, Alkaline Phosphatase 101, Lactate Dehydrogenase 200, Total Protein 5.6 L, Albumin 2.0 L, Globulin 3.6, Albumin/Globulin Ratio 0.6 L Current Medications Acetaminophen (Acetaminophen 500 Mg Tablet) 1,000 mg PO Q6H [facility] Bisacodyl (Bisacodyl 10 Mg Suppository) 10 mg RC UD PRN PRN Reason: If no BM Bupropion HCl (Bupropion (Sr) 150 Mg Tablet.Sa) 150 mg PO BID [facility] Last Admin: 09/08/20 21:51 Dose: 150 mg Documented by: Diphenhydramine HCl (Diphenhydramine 25 Mg Capsule) 25 mg PO BID PRN PRN PRN Reason: ITCHING Last Admin: 09/06/20 22:48 Dose: 25 mg Documented by: Enoxaparin Sodium (Enoxaparin 40 Mg/0.4 Ml Syringe) 40 mg SC DAILY@0600 [facility] Last Admin: 09/09/20 05:54 Dose: 40 mg Documented by: Fluoxetine HCl (Fluoxetine 20 Mg Capsule) 80 mg PO DAILY [facility] Last Admin: 09/08/20 08:00 Dose: 80 mg Documented by: Hydrocortisone (Hydrocortisone 2.5% Crm) 1 applic TOPICAL TID PRN PRN; Protocol PRN Reason: Discomfort Ibuprofen (Ibuprofen 600 Mg Tablet) 600 mg PO Q6H [facility] Last Admin: 09/09/20 04:19 Dose: 600 mg Documented by: Nifedipine (Nifedipine 30 Mg Tablet) 30 mg PO DAILY [facility] Last Admin: 09/08/20 11:13 Dose: 30 mg Documented by: Ondansetron HCl (Ondansetron 4 Mg/2 Ml Vial) 4 mg IV Q4H PRN PRN PRN Reason: Nausea Last Admin: 09/06/20 14:05 Dose: 4 mg Documented by: Oxycodone HCl (Oxycodone 5 Mg Tablet) 5 - 10 mg PO Q4H PRN PRN PRN Reason: Pain Score 4-10 Last Admin: 09/08/20 16:47 Dose: 5 mg Documented by: Prochlorperazine Edisylate (Prochlorperazine 10 Mg/2 Ml Vial) 10 mg IV Q6H PRN PRN PRN Reason: NAUSEA Senna/Docusate Sodium (Senna/Docusate Sodium 1 Tablet) 0 tablet PO DAILY [facility] Last Admin: 09/08/20 08:00 Dose: 1 tablet Documented by: Simethicone (Simethicone 80 Mg Tablet) 80 mg PO PCHS PRN PRN Reason: Indigestion/stomach pain Sodium Chloride (0.9% Saline Lock 10 Ml Syringe) 5 - 15 ml IV UD PRN PRN Reason: SALINE FLUSH Last Admin: 09/07/20 14:35 Dose: 5 ml Documented by: Medical Necessity - Tobacco Use Smoking Status: Never smoker Assessment/Plan All Active Problems (Last Reviewed 04/04/19 @ 14:[address] César Pickens MD) Elevated blood pressure reading in office with diagnosis of hypertension (Acute) Maternal hypertension affecting puerperium (Acute) Calculus of gallbladder without cholecystitis without obstruction (Acute) RUQ abdominal pain (Acute) Cholelithiasis affecting in third trimester, antepartum (Acute) IUGR (intrauterine growth restriction) (Acute) 38 weeks gestation of (Acute) 34 yo POD#3 s/p primary elective section for pre-eclampsia with severe features. BPs controlled, labs wnl. Acute blood loss anemia secondary to surgery, s/p uPRBC. Hb stable. Iron supplement at home. Home today with 1w RN BP check, 2w incision check, 6w PP.
[2020-09-09] MEDS: FLUoxetine 20 MG Capsule 80 MG PO (08:59)
[2020-09-09] MEDS: buPROPion (SR) 150 MG Tablet.SA PO (08:59)
[2020-09-09] MEDS: Senna/Docusate Sodium 1 Tablet PO (08:59)
[2020-09-09] MEDS: NIFEdipine 30 MG Tablet PO (08:59)
--- NOTE | 2020-09-12 03:57 | DS.PCM_ITS ---
Discharge Summary Date of Admission: 09/06/20 Date of Discharge: 08/12/20 Summary: Patient admitted for preeclampsia with severe features based on severe range blood pressures. She was given IV labetalol and magnesium. Primary section completed. Patient had stable labs. She was started on Procardia daily. On postop day 3 she was stable for discharge. Discharged home - Physical Exam Vitals/I&O's: Vital Signs Temp Pulse Resp BP Pulse Ox 98.1 F 60 16 137/80 H 97 09/09/20 07:38 09/09/20 07:38 09/09/20 07:38 09/09/20 07:38 09/09/20 07:38 Oxygen Delivery Method Room Air Weight: 93.3 kg Body Mass Index (BMI) 36.4 Finger Stick Blood Glucose 96 General: Alert, Oriented x3, No apparent distress HEENT: Atraumatic, Normocephalic Neck: Supple Lungs: Clear to auscultation, Normal air movement Cardiovascular: Regular rate, Regular Rhythm Abdomen: Soft - Mildly tender. Dressing clean and dry. Uterus 2 cm below umbilicus Extremities: No clubbing, No edema Neurological: Cranial nerves II-XII grossly intact, Deep Tendon Reflexes 2+/4 and Symmetrical, Neuro grossly intact Psych/Mental Status: Normal Affect, Appropriate Laboratory Tests 09/09/20 09/09/20 09/08/20 Range/Units 06:00 06:00 05:55 WBC 5.6 (4.4-11.0) K/mm3 RBC 3.17 L (4.2-5.4) M/mm3 Hgb 7.8 L (12.0-15.0) g/dL Hct 26.0 L (37-47) % MCV 82.0 (81-99) fL MCH 24.6 L (27.0-32.0) pg MCHC 30.0 L (32-36) g/dL RDW Std Deviation 47.0 H (35.1-43.9) fl RDW Coeff of Nadya 15.9 H (11.6-14.6) % Plt Count 166 (150-450) K/mm3 MPV 10.4 (6.2-12.0) fl Immature Gran % (Auto) 0.500 (0.0-0.9) % Neut % (Auto) 76.2 H (47-70) % Lymph % (Auto) 14.5 L (19-41) % Starke % (Auto) 5.4 (0-10) % Eos % (Auto) 3.4 (0-5) % Baso % (Auto) 0.0 (0-1) % Absolute Neuts (auto) 4.3 (2.0-7.7) X10^3/uL Absolute Lymphs (auto) 0.81 L (0.83-4.51) X10^3/uL Nucleated RBC % 0 (0-5) % Sodium 139 137 (136-145) mmol/L Potassium 4.5 4.3 (3.5-5.1) mmol/L Chloride 108 H 107 (98-107) mmol/L Carbon Dioxide 26.0 24.0 (21.0-32.0) mmol/L Anion Gap 5 6 (5-15) BUN 9 8 (7-18) mg/dL Creatinine 0.70 0.76 (0.55-1.02) mg/dL Estim Creat Clear Calc 92.79 85.47 ml/min Est GFR (MDRD) Af Amer 123 110 (>60) mL/min Est GFR (MDRD) Non-Af 101 91 (>60) mL/min BUN/Creatinine Ratio 12.9 10.5 (10-20) RATIO Glucose 72 L 69 L (74-106) mg/dL Calcium 8.4 L 7.2 L (8.5-10.1) mg/dL Magnesium (1.6-2.6) mg/dL Total Bilirubin 0.20 0.20 (0.20-1.00) mg/dL AST 17 17 (15-37) U/L ALT 12 L 13 (13-56) U/L Alkaline Phosphatase 101 121 H (45-117) U/L Lactate Dehydrogenase 200 300 H (84-246) U/L Total Protein 5.6 L 5.9 L (6.4-8.2) g/dL Albumin 2.0 L 2.0 L (3.2-5.0) g/dL Globulin 3.6 3.9 (2.2-4.2) g/dL Albumin/Globulin Ratio 0.6 L 0.5 L (0.9-2.4) RATIO Urine Color (Yellow) Urine Clarity (Clear) Urine pH (5.0 - 8.0) Ur Specific [place] (1.002-1.030) Urine Protein (Negative) mg/dl Urine Glucose (UA) (Normal) mg/dl Urine Ketones (Negative) mg/dl Urine Occult Blood (Negative) /ul Urine Nitrite (Negative) Urine Bilirubin (Negative) mg/dL Urine Urobilinogen (Normal) mg/dl Ur Leukocyte Esterase (Negative) /ul Urine RBC (0-5) /hpf Urine WBC (0-5) /hpf Ur Squamous Epith Cells (5-10) /hpf Urine Bacteria (None Seen) /hpf Urine Mucus (<or=2+) /hpf U Random Total Protein (<11.9) mg/dL Urine Creatinine (NO RANGE EST.) mg/dL Protein/Creatinin Ratio (0-200) mg/g CRE POC Glucose (70-110) mg/dL Blood Type Antibody Screen Crossmatch 09/08/20 09/07/20 09/07/20 Range/Units 05:55 12:45 06:25 WBC 5.2 (4.4-11.0) K/mm3 RBC 3.49 L (4.2-5.4) M/mm3 Hgb 8.4 L (12.0-15.0) g/dL Hct 28.3 L (37-47) % MCV 81.1 (81-99) fL MCH 24.1 L (27.0-32.0) pg MCHC 29.7 L (32-36) g/dL RDW Std Deviation 45.1 H (35.1-43.9) fl RDW Coeff of Nadya 15.7 H (11.6-14.6) % Plt Count 171 (150-450) K/mm3 MPV 10.7 (6.2-12.0) fl Immature Gran % (Auto) 0.600 (0.0-0.9) % Neut % (Auto) 75.9 H (47-70) % Lymph % (Auto) 17.9 L (19-41) % Starke % (Auto) 4.2 (0-10) % Eos % (Auto) 1.2 (0-5) % Baso % (Auto) 0.2 (0-1) % Absolute Neuts (auto) 4.0 (2.0-7.7) X10^3/uL Absolute Lymphs (auto) 0.93 (0.83-4.51) X10^3/uL Nucleated RBC % 0 (0-5) % Sodium (136-145) mmol/L Potassium (3.5-5.1) mmol/L Chloride (98-107) mmol/L Carbon Dioxide (21.0-32.0) mmol/L Anion Gap (5-15) BUN (7-18) mg/dL Creatinine (0.55-1.02) mg/dL Estim Creat Clear Calc ml/min Est GFR (MDRD) Af Amer (>60) mL/min Est GFR (MDRD) Non-Af (>60) mL/min BUN/Creatinine Ratio (10-20) RATIO Glucose (74-106) mg/dL Calcium (8.5-10.1) mg/dL Magnesium 7.7 H* (1.6-2.6) mg/dL Total Bilirubin (0.20-1.00) mg/dL AST (15-37) U/L ALT (13-56) U/L Alkaline Phosphatase (45-117) U/L Lactate Dehydrogenase (84-246) U/L Total Protein (6.4-8.2) g/dL Albumin (3.2-5.0) g/dL Globulin (2.2-4.2) g/dL Albumin/Globulin Ratio (0.9-2.4) RATIO Urine Color (Yellow) Urine Clarity (Clear) Urine pH (5.0 - 8.0) Ur Specific [place] (1.002-1.030) Urine Protein (Negative) mg/dl Urine Glucose (UA) (Normal) mg/dl Urine Ketones (Negative) mg/dl Urine Occult Blood (Negative) /ul Urine Nitrite (Negative) Urine Bilirubin (Negative) mg/dL Urine Urobilinogen (Normal) mg/dl Ur Leukocyte Esterase (Negative) /ul Urine RBC (0-5) /hpf Urine WBC (0-5) /hpf Ur Squamous Epith Cells (5-10) /hpf Urine Bacteria (None Seen) /hpf Urine Mucus (<or=2+) /hpf U Random Total Protein (<11.9) mg/dL Urine Creatinine (NO RANGE EST.) mg/dL Protein/Creatinin Ratio (0-200) mg/g CRE POC Glucose 82 (70-110) mg/dL Blood Type Antibody Screen Crossmatch 09/07/20 09/07/20 09/07/20 Range/Units 06:25 06:25 01:15 WBC 5.5 (4.4-11.0) K/mm3 RBC 2.84 L (4.2-5.4) M/mm3 Hgb 6.8 L (12.0-15.0) g/dL Hct 22.4 L (37-47) % MCV 78.9 L (81-99) fL MCH 23.9 L (27.0-32.0) pg MCHC 30.4 L (32-36) g/dL RDW Std Deviation 43.0 (35.1-43.9) fl RDW Coeff of Nadya 15.0 H (11.6-14.6) % Plt Count 136 L (150-450) K/mm3 MPV 10.9 (6.2-12.0) fl Immature Gran % (Auto) 0.500 (0.0-0.9) % Neut % (Auto) 78.0 H (47-70) % Lymph % (Auto) 14.9 L (19-41) % Starke % (Auto) 5.3 (0-10) % Eos % (Auto) 1.1 (0-5) % Baso % (Auto) 0.2 (0-1) % Absolute Neuts (auto) 4.3 (2.0-7.7) X10^3/uL Absolute Lymphs (auto) 0.82 L (0.83-4.51) X10^3/uL Nucleated RBC % 0 (0-5) % Sodium 132 L (136-145) mmol/L Potassium 4.1 (3.5-5.1) mmol/L Chloride 102 (98-107) mmol/L Carbon Dioxide 25.0 (21.0-32.0) mmol/L Anion Gap 5 (5-15) BUN 7 (7-18) mg/dL Creatinine 0.62 (0.55-1.02) mg/dL Estim Creat Clear Calc 104.76 ml/min Est GFR (MDRD) Af Amer 141 (>60) mL/min Est GFR (MDRD) Non-Af 116 (>60) mL/min BUN/Creatinine Ratio 11.3 (10-20) RATIO Glucose 82 (74-106) mg/dL Calcium 6.7 L (8.5-10.1) mg/dL Magnesium 7.2 H* 6.5 H* (1.6-2.6) mg/dL Total Bilirubin 0.20 (0.20-1.00) mg/dL AST 15 (15-37) U/L ALT 12 L (13-56) U/L Alkaline Phosphatase 114 (45-117) U/L Lactate Dehydrogenase 182 (84-246) U/L Total Protein 5.1 L (6.4-8.2) g/dL Albumin 1.8 L (3.2-5.0) g/dL Globulin 3.3 (2.2-4.2) g/dL Albumin/Globulin Ratio 0.5 L (0.9-2.4) RATIO Urine Color (Yellow) Urine Clarity (Clear) Urine pH (5.0 - 8.0) Ur Specific [place] (1.002-1.030) Urine Protein (Negative) mg/dl Urine Glucose (UA) (Normal) mg/dl Urine Ketones (Negative) mg/dl Urine Occult Blood (Negative) /ul Urine Nitrite (Negative) Urine Bilirubin (Negative) mg/dL Urine Urobilinogen (Normal) mg/dl Ur Leukocyte Esterase (Negative) /ul Urine RBC (0-5) /hpf Urine WBC (0-5) /hpf Ur Squamous Epith Cells (5-10) /hpf Urine Bacteria (None Seen) /hpf Urine Mucus (<or=2+) /hpf U Random Total Protein (<11.9) mg/dL Urine Creatinine (NO RANGE EST.) mg/dL Protein/Creatinin Ratio (0-200) mg/g CRE POC Glucose (70-110) mg/dL Blood Type Antibody Screen Crossmatch 09/06/20 09/06/20 09/06/20 Range/Units 18:45 13:17 12:25 WBC (4.4-11.0) K/mm3 RBC (4.2-5.4) M/mm3 Hgb (12.0-15.0) g/dL Hct (37-47) % MCV (81-99) fL MCH (27.0-32.0) pg MCHC (32-36) g/dL RDW Std Deviation (35.1-43.9) fl RDW Coeff of Nadya (11.6-14.6) % Plt Count (150-450) K/mm3 MPV (6.2-12.0) fl Immature Gran % (Auto) (0.0-0.9) % Neut % (Auto) (47-70) % Lymph % (Auto) (19-41) % Starke % (Auto) (0-10) % Eos % (Auto) (0-5) % Baso % (Auto) (0-1) % Absolute Neuts (auto) (2.0-7.7) X10^3/uL Absolute Lymphs (auto) (0.83-4.51) X10^3/uL Nucleated RBC % (0-5) % Sodium (136-145) mmol/L Potassium (3.5-5.1) mmol/L Chloride (98-107) mmol/L Carbon Dioxide (21.0-32.0) mmol/L Anion Gap (5-15) BUN (7-18) mg/dL Creatinine (0.55-1.02) mg/dL Estim Creat Clear Calc ml/min Est GFR (MDRD) Af Amer (>60) mL/min Est GFR (MDRD) Non-Af (>60) mL/min BUN/Creatinine Ratio (10-20) RATIO Glucose (74-106) mg/dL Calcium (8.5-10.1) mg/dL Magnesium 5.7 H* (1.6-2.6) mg/dL Total Bilirubin (0.20-1.00) mg/dL AST (15-37) U/L ALT (13-56) U/L Alkaline Phosphatase (45-117) U/L Lactate Dehydrogenase (84-246) U/L Total Protein (6.4-8.2) g/dL Albumin (3.2-5.0) g/dL Globulin (2.2-4.2) g/dL Albumin/Globulin Ratio (0.9-2.4) RATIO Urine Color Yellow (Yellow) Urine Clarity Clear (Clear) Urine pH 6.0 (5.0 - 8.0) Ur Specific [place] 1.010 (1.002-1.030) Urine Protein Negative (Negative) mg/dl Urine Glucose (UA) Normal (Normal) mg/dl Urine Ketones Negative (Negative) mg/dl Urine Occult Blood Negative (Negative) /ul Urine Nitrite Negative (Negative) Urine Bilirubin Negative (Negative) mg/dL Urine Urobilinogen Normal (Normal) mg/dl Ur Leukocyte Esterase 500 H (Negative) /ul Urine RBC 0 SEEN (0-5) /hpf Urine WBC 5-10 SEEN (0-5) /hpf Ur Squamous Epith Cells 0-5 SEEN (5-10) /hpf Urine Bacteria 1+ (None Seen) /hpf Urine Mucus 0 SEEN (<or=2+) /hpf U Random Total Protein (<11.9) mg/dL Urine Creatinine (NO RANGE EST.) mg/dL Protein/Creatinin Ratio (0-200) mg/g CRE POC Glucose 71 (70-110) mg/dL Blood Type Antibody Screen Crossmatch 09/06/20 09/06/20 09/06/20 Range/Units 12:25 12:00 12:00 WBC (4.4-11.0) K/mm3 RBC (4.2-5.4) M/mm3 Hgb (12.0-15.0) g/dL Hct (37-47) % MCV (81-99) fL MCH (27.0-32.0) pg MCHC (32-36) g/dL RDW Std Deviation (35.1-43.9) fl RDW Coeff of Nadya (11.6-14.6) % Plt Count (150-450) K/mm3 MPV (6.2-12.0) fl Immature Gran % (Auto) (0.0-0.9) % Neut % (Auto) (47-70) % Lymph % (Auto) (19-41) % [place] % (Auto) (0-10) % Eos % (Auto) (0-5) % Baso % (Auto) (0-1) % Absolute Neuts (auto) (2.0-7.7) X10^3/uL Absolute Lymphs (auto) (0.83-4.51) X10^3/uL Nucleated RBC % (0-5) % Sodium (136-145) mmol/L Potassium (3.5-5.1) mmol/L Chloride (98-107) mmol/L Carbon Dioxide (21.0-32.0) mmol/L Anion Gap (5-15) BUN (7-18) mg/dL Creatinine (0.55-1.02) mg/dL Estim Creat Clear Calc ml/min Est GFR (MDRD) Af Amer (>60) mL/min Est GFR (MDRD) Non-Af (>60) mL/min BUN/Creatinine Ratio (10-20) RATIO Glucose (74-106) mg/dL Calcium (8.5-10.1) mg/dL Magnesium (1.6-2.6) mg/dL Total Bilirubin (0.20-1.00) mg/dL AST (15-37) U/L ALT (13-56) U/L Alkaline Phosphatase (45-117) U/L Lactate Dehydrogenase (84-246) U/L Total Protein (6.4-8.2) g/dL Albumin (3.2-5.0) g/dL Globulin (2.2-4.2) g/dL Albumin/Globulin Ratio (0.9-2.4) RATIO Urine Color (Yellow) Urine Clarity (Clear) Urine pH (5.0 - 8.0) Ur Specific [place] (1.002-1.030) Urine Protein (Negative) mg/dl Urine Glucose (UA) (Normal) mg/dl Urine Ketones (Negative) mg/dl Urine Occult Blood (Negative) /ul Urine Nitrite (Negative) Urine Bilirubin (Negative) mg/dL Urine Urobilinogen (Normal) mg/dl Ur Leukocyte Esterase (Negative) /ul Urine RBC (0-5) /hpf Urine WBC (0-5) /hpf Ur Squamous Epith Cells (5-10) /hpf Urine Bacteria (None Seen) /hpf Urine Mucus (<or=2+) /hpf U Random Total Protein 12.1 H (<11.9) mg/dL Urine Creatinine 76.30 (NO RANGE EST.) mg/dL Protein/Creatinin Ratio 159 (0-200) mg/g CRE POC Glucose (70-110) mg/dL Blood Type O POSITIVE Antibody Screen NEGATIVE Crossmatch See Detail 09/06/20 09/06/20 Range/Units 12:00 12:00 WBC 6.5 (4.4-11.0) K/mm3 RBC 3.55 L (4.2-5.4) M/mm3 Hgb 8.5 L (12.0-15.0) g/dL Hct 28.1 L (37-47) % MCV 79.2 L (81-99) fL MCH 23.9 L (27.0-32.0) pg MCHC 30.2 L (32-36) g/dL RDW Std Deviation 43.1 (35.1-43.9) fl RDW Coeff of Nadya 14.7 H (11.6-14.6) % Plt Count 147 L (150-450) K/mm3 MPV 11.4 (6.2-12.0) fl Immature Gran % (Auto) (0.0-0.9) % Neut % (Auto) (47-70) % Lymph % (Auto) (19-41) % [place] % (Auto) (0-10) % Eos % (Auto) (0-5) % Baso % (Auto) (0-1) % Absolute Neuts (auto) (2.0-7.7) X10^3/uL Absolute Lymphs (auto) (0.83-4.51) X10^3/uL Nucleated RBC % (0-5) % Sodium 136 (136-145) mmol/L Potassium 4.3 (3.5-5.1) mmol/L Chloride 105 (98-107) mmol/L Carbon Dioxide 24.0 (21.0-32.0) mmol/L Anion Gap 7 (5-15) BUN 8 (7-18) mg/dL Creatinine 0.67 (0.55-1.02) mg/dL Estim Creat Clear Calc 96.95 ml/min Est GFR (MDRD) Af Amer 128 (>60) mL/min Est GFR (MDRD) Non-Af 106 (>60) mL/min BUN/Creatinine Ratio 11.9 (10-20) RATIO Glucose 77 (74-106) mg/dL Calcium 8.5 (8.5-10.1) mg/dL Magnesium (1.6-2.6) mg/dL Total Bilirubin 0.20 (0.20-1.00) mg/dL AST 7 L (15-37) U/L ALT 13 (13-56) U/L Alkaline Phosphatase 143 H (45-117) U/L Lactate Dehydrogenase 131 (84-246) U/L Total Protein 6.2 L (6.4-8.2) g/dL Albumin 2.2 L (3.2-5.0) g/dL Globulin 4.0 (2.2-4.2) g/dL Albumin/Globulin Ratio 0.6 L (0.9-2.4) RATIO Urine Color (Yellow) Urine Clarity (Clear) Urine pH (5.0 - 8.0) Ur Specific [place] (1.002-1.030) Urine Protein (Negative) mg/dl Urine Glucose (UA) (Normal) mg/dl Urine Ketones (Negative) mg/dl Urine Occult Blood (Negative) /ul Urine Nitrite (Negative) Urine Bilirubin (Negative) mg/dL Urine Urobilinogen (Normal) mg/dl Ur Leukocyte Esterase (Negative) /ul Urine RBC (0-5) /hpf Urine WBC (0-5) /hpf Ur Squamous Epith Cells (5-10) /hpf Urine Bacteria (None Seen) /hpf Urine Mucus (<or=2+) /hpf U Random Total Protein (<11.9) mg/dL Urine Creatinine (NO RANGE EST.) mg/dL Protein/Creatinin Ratio (0-200) mg/g CRE POC Glucose (70-110) mg/dL Blood Type Antibody Screen Crossmatch
== END 2020-09-09 10:30 | disposition home or self-care (01) | DRG 787 ==
LOC: WPOUT 12:33 → WP 12:35
PROVIDERS: Admitting Provider Obstetrics & Gynecology; PCP Internal Medicine; Referring Provider Obstetrics & Gynecology; Visit Provider Obstetrics & Gynecology
DX: O14.14 Severe pre-eclampsia complicating childbirth (principal); O99.12 Other diseases of the blood and blood-forming organs and certain disorders involving the immune mechanism complicating childbirth; D68.62 Lupus anticoagulant syndrome; D62 Acute posthemorrhagic anemia; Z3A.37 37 weeks gestation of pregnancy; Z37.0 Single live birth; O99.844 Bariatric surgery status complicating childbirth; O24.420 Gestational diabetes mellitus in childbirth, diet controlled; O99.344 Other mental disorders complicating childbirth; F32.9 Major depressive disorder, single episode, unspecified; N90.4 Leukoplakia of vulva
CPT/HCPCS: 59025; 59050; 80053; 81001; 82570; 82962; 83615; 83735; 84156; 85025; 85027; 86850; 86900; 86901; 86920; 87426; 99218; 99251; J7120; P9016; 90686; A4216; G0378; G0463; J2405

== ENCOUNTER → 2021-03-31 12:18 | Outpatient (CLI) | payer BC, MEDICAID, SELFPAY ==
[2021-04-06 08:30] LABS: HPV APTIMA, High Risk Negative (Negative)
== END ==
PROVIDERS: PCP Internal Medicine; Visit Provider Obstetrics & Gynecology
DX: Z12.4 Encounter for screening for malignant neoplasm of cervix (principal); Z11.3 Encounter for screening for infections with a predominantly sexual mode of transmission
CPT/HCPCS: 87624; 88175; G0145

== ENCOUNTER 2021-08-05 09:45 | Outpatient (RCR) | payer OTHER, MEDICAID, SELFPAY ==
[2021-07-29 09:23] VITALS: BP 133/87; PULSE 78; RESP 20; TEMP 36.7; BMI 28.4
--- NOTE | 2021-07-29 13:55 | PCM.WC.HP ---
History of Present Illness Date of Service: 07/29/21 Chief Complaint: Surgical wound break down History of Wound: Ms. Quintero is a 35-year-old who presents to the wound center due to surgical wound breakdown. Had extensive surgery done in June to remove excess skin following weight loss from bariatric surgery. Surgery was done in [place]. Surgery was uneventful and for the most part has done really well post surgery. Had some areas of wound breakdown. Has been applying Medihoney and Aquacel without any significant improvement. Minimal clear with blood tingled drainage. She was referred here by her primary care physician. She denies any history of diabetes mellitus, tobacco or alcohol abuse. Feels well otherwise. [facility] Medical History (Updated 07/29/21 @ 14:[address] Radha Nash MD) Abnormal Pap smear of cervix Anxiety and depression Depression Gallstones GERD (gastroesophageal reflux disease) Hemorrhoid Non-healing surgical wound Surgical wound breakdown Home Medications fluoxetine 80 mg PO DAILY 05/23/18 [History Last Taken 08/13/20 21:00] iron, carbonyl 65 mg PO BID 04/08/19 [History Last Taken 08/13/20 21:00] vit,[id number] 1 tab PO DAILY 04/08/19 [History Last Taken 08/13/20 21:00] bupropion HCl 150 mg PO DAILY 08/15/20 [History Last Taken Unknown] Allergy/AdvReac Type Severity Reaction Status Date / Time No Known Allergies Allergy Verified 09/06/20 11:11 Family History Mother Hypertension Surgical History (Updated 08/18/20 @ 06:[address] Santi Vega MD) H/O bariatric surgery History of colposcopy history of foot fusion History of foot surgery History of laparoscopic cholecystectomy (~04/2019) Social History (Updated 04/22/19 @ 15:59 by Daisy EASON PA-C) Smoking Status: Never smoker ROS Constitutional Constitutional: Denies fatigue, fever(s), frequent falls, headache(s), increased appetite, lethargy or malaise Eyes Eyes: Denies change in eye color, change in vision, discharge from eye(s), discongugate gaze, irritation or itchy eyes ENT HEENT: Denies dysphagia, ear discharge, ear pain, epistaxis or facial pain Cardiovascular Cardiovascular: Denies abdominal edema, bluish discoloration of hand/feet, chest pain, chest pain at rest, chest pain with activity or clubbing Respiratory/Chest Respiratory/Chest: Denies change in mental status, change in phlegm color, dry cough, dusky skin, dyspnea, dyspnea on exertion, excessive phlegm production or nail bed cyanosis Gastrointestinal Gastrointestinal: Denies anorexia, belching, chewing difficulty, coffee ground emesis, constipation, cramping or diarrhea Genitourinary Genitourinary: Denies anuria, burning urination, difficulty urinating, dribbling or dysuria Musculoskeletal Musculoskeletal: Denies arthralgias, atrophy, back pain, joint stiffness, joint swelling, loss of height or muscle cramps Integumentary Integumentary: Denies erythema, furuncle, hirsutism, jaundice, lesions or nail changes Neurologic Neurologic: Denies abnormal gait, burning sensations, confusion, convulsions, disequilibrium, dizziness or focal weakness Psychiatric Psychiatric: Denies change in appetite, cognitive impairment, confusion, depression, difficulty concentrating or hallucinations Endocrine Endocrinology: Denies excessive sweating, fatigue, flushing, heat intolerance, palpitations or polydipsia Hematologic/Lymphatic Hematologic/Lymphatic: Denies easy bleeding, easy bruising or lymphadenopathy Allergic/Immunologic Allergic/Immunologic: Denies tongue swelling, hives, urticaria, eczemia, wheezing or asthma Vital Signs Vital Signs Vital Signs: 07/29/21 09:23 Temperature 98.1 F Temperature Source Temporal Pulse Rate 78 Respiratory Rate 20 H Blood Pressure 133/87 H Blood Pressure Mean 102 Blood Pressure Source Monitor Weight Weight: 160 lb 11.834 oz Body Mass Index (BMI) 28.4 Physical Exam Const alert, oriented x3 and no apparent distress General Appearance: cooperative, comfortable, well kempt and well developed HEENT normocephalic and head/scalp atraumatic Head and Scalp: normal to inspection and normocephalic Eyes EOMs intact bilaterally General Eye: normal appearance of both eyes Neck full ROM General: normal visual inspection Resp normal respiratory effort Effort and Inspection: able to speak in complete sentences Cardio regular rate, regular rhythm, S1 normal heart sound and S2 normal heart sound Skin Wounds: wounds noted Neuro oriented x3, CN's II-XII intact bilaterally, moves all extremities and no focal motor deficits Psych mental status grossly normal Appearance: grossly normal Attitude: calm Activity / Motor Behavior: appropriate eye contact Speech: normal speech Thought Process: normal thought process Debridement Note Debridement Note Wound debrided: Mid abdomen/umbilical area Type of Debridement: Excisional debridement Anesthesia Used: 4% Lidocaine Solution Depth: Down to and including healthy tissue and in the subcutaneous layer Percentage of wound debrided: 100 Instrument Used: #15 blade and Forceps Tissue Removed: Slough and devitalized tissue Severity: Fat Layer Exposed Amount of bleeding with debridement: Mild Bleeding Controlled with: Pressure Patient tolerated procedure: Patient tolerated procedure well Post-Debridement Measurements and Additional Note: Post-Debridement Measurements/Treatment - Nurse 1 - General Ulcer Assessment Start: 07/29/21 09:23 Freq: Status: Active Protocol: KANG Activity Type Activity Date Activity User E-Sign Co-Sign Detail Recorded Client Recorded Date Recorded By Document 07/29/21 09:23 DL [id number] 07/29/21 09:51 DL 07/29/21 09:23 - Today's Visit Information Type of service Initial Visit Arrival Mode Ambulatory Transfer Assistance None Patient Identification Verified (Name & Yes ) Height and Weight Height 5 ft 3 in Weight 160 lb 11.834 oz Weight in Pounds 160.7 lbs Body Mass Index (BMI) 28.4 BMI Classification Overweight BSA - Keily 1.76 Vital Signs Temperature (97.8 F-99.1 F) 98.1 F Temperature Source Temporal Pulse Rate (60-100) 78 Pulse Location Monitor Respiratory Rate (12-18) 20 H Respiratory rate source Observation Blood Pressure (90/60-120/80) 133/87 H Blood Pressure Mean 102 Source Monitor Pain Scale: 0-10 Numeric Is Patient Pain Free? Yes Communication Assessment Preferred language Algerian Able to Read Yes Able to Write Yes Communication Tools None Right Hearing Abillity Normal Left Hearing Abillity Normal Visual Assistive Devices None Teaching Assessment Preferences Verbal,Written, Demonstration Barriers to Learning None Readiness To Learn Good Willingness to Engage in Self Management Med Activies Readiness to Engage in Self Management Med Activities Anxiety Level Calm Cooperation Cooperative Perception Coherent Interest in Health Problem Asks Questions Education Importance Acknowledges Need Does Patient Smoke tobacco or other No substances Smoking Status Never smoker Is Patient Diabetic No Functional Assessment Recent Decline in Ability to Perform Denies Any Declines Culture/Mormon/Hydrological Technical Officer Cultural/Mormon Needs that may affect No Treatment Plan Would you allow our hospital conveyor operator to No meet you for the purpose of spiritual/ emotional support? Hydrological Technical Officer to contact place of taoist No Teaching: Wound Center *Nutrition -Person Taught Patient Discharge Instructions -Person Taught Patient Dressing Your Wound -Person Taught Patient *Welcome to the Wound Center -Person Taught Patient WC - Nurse 1 - General Ulcer Measurement Start: 07/29/21 09:23 Freq: Status: Active Protocol: Activity Type Activity Date Activity User E-Sign Co-Sign Detail Recorded Client Recorded Date Recorded By Document 07/29/21 09:23 DL [id number] 07/29/21 09:51 DL 07/29/21 09:23 Wound Center Nurse 1 #4 Lower Mid Back -Current Size (cm) - Length 0.3 -Current Size (cm) - Width 0.3 -Current Size (cm) - Depth 0.2 -Total Square Cm 0.09 -Photo Taken Yes -Classification - Thickness Full Thickness without Exposed Support Structure -Exudate Amt Medium -Exudate Type Serosanguineous -Wound Margin Distinct, Outline Attached -Granulation Amt None Present (0 %) -Necrosis Amt Small (1-33%) -Necrotic Tissue Type Adherent Slough -Structure Exposed N/A -Texture (Anca-wound Skin Appearance) Scarring -Moisture (Anca-wound Skin Appearance) No Abnormality -Color (Anca-wound Skin Appearance) No Abnormality -Temperature (Anca-wound Skin No Abnormality Appearance) (Pt Warm) -Tenderness on Palpation (Anca-wound No Skin Appearance) -Ulcer Cleansing Soap and Water -Foul Odor after Cleansing No -Anesthetic Used 4% Lidocaine Solution #3 Upper Mid Back -Current Size (cm) - Length 0.8 -Current Size (cm) - Width 0.8 -Current Size (cm) - Depth 0.2 -Total Square Cm 0.64 -Photo Taken Yes -Exudate Amt Medium -Exudate Type Serosanguineous -Wound Margin Distinct, Outline Attached -Granulation Amt None Present (0 %) -Necrosis Amt Small (1-33%) -Necrotic Tissue Type Adherent Slough -Structure Exposed N/A -Texture (Anca-wound Skin Appearance) Scarring -Moisture (Anca-wound Skin Appearance) No Abnormality -Color (Anca-wound Skin Appearance) No Abnormality -Temperature (Anca-wound Skin No Abnormality Appearance) (Pt Warm) -Tenderness on Palpation (Anca-wound No Skin Appearance) -Ulcer Cleansing Soap and Water -Foul Odor after Cleansing No -Anesthetic Used 4% Lidocaine Solution #2 Mid abd/Bellybutton -Current Size (cm) - Length 1 -Current Size (cm) - Width 0.5 -Current Size (cm) - Depth 0.7 -Total Square Cm 0.5 -Photo Taken Yes -Exudate Amt Medium -Exudate Type Serosanguineous -Wound Margin Distinct, Outline Attached -Granulation Amt Medium (34-66%) -Granulation Quality Pale,[place] -Necrosis Amt Medium (34-66%) -Necrotic Tissue Type Adherent Slough -Structure Exposed N/A -Texture (Anca-wound Skin Appearance) Scarring -Moisture (Anca-wound Skin Appearance) Dry/Scaly -Color (Anca-wound Skin Appearance) No Abnormality -Temperature (Anca-wound Skin No Abnormality Appearance) (Pt Warm) -Tenderness on Palpation (Anca-wound No Skin Appearance) -Ulcer Cleansing Soap and Water -Foul Odor after Cleansing No -Anesthetic Used 4% Lidocaine Solution #1 Lower Abd -Current Size (cm) - Length 2.2 -Current Size (cm) - Width 8.2 -Current Size (cm) - Depth 0.2 -Total Square Cm 18.04 -Photo Taken Yes -Exudate Amt Medium -Exudate Type Serosanguineous -Wound Margin Distinct, Outline Attached -Granulation Amt Small (1-33%) -Granulation Quality [place] -Necrosis Amt Large (67-100%) -Necrotic Tissue Type Eschar -Structure Exposed N/A -Texture (Anca-wound Skin Appearance) Localized Edema ,Scarring -Moisture (Anca-wound Skin Appearance) No Abnormality -Color (Anca-wound Skin Appearance) No Abnormality -Temperature (Anca-wound Skin No Abnormality Appearance) (Pt Warm) -Tenderness on Palpation (Anca-wound No Skin Appearance) -Ulcer Cleansing Soap and Water -Foul Odor after Cleansing No -Anesthetic Used 4% Lidocaine Solution WC - Nurse 2 - General Ulcer CM Notes Start: 07/29/21 09:23 Freq: Status: Active Protocol: Activity Type Activity Date Activity User E-Sign Co-Sign Detail Recorded Client Recorded Date Recorded By Document 07/29/21 10:21 MW [id number] 07/29/21 10:51 MW 07/29/21 10:21 Wound Center Nurse 2 #4 Lower Mid Back -Time 10:22 -Correct Patient Yes -Correct Side, Site, Position Yes -Correct Procedure Yes -Procedure Performed Yes -Type of Procedure Debridement -Clinical Debridement Subcutaneous -Tissue Removed Subcutaneous -Post Debridement (cm) - Length 1.0 -Post Debridement (cm) - Width 0.5 -Post Debridement (cm) - Depth 1.2 -Total Square (Post) (cm) 0.50 -Area of Debridement (cm) - Length 1.0 -Area of Debridement (cm) - Width 0.5 -Total Square (Area) (cm) 0.50 -Tunneling No -Undermining/Tunneling No -Circular Undermining No -Wound/Ulcer Outcome Not Healed -Ulcer Cleansing Rinsed/ Irrigated with Saline -Foul Odor after Cleansing No -Bioengineered Tissue No -Bleeding Controlled with Pressure -Offloading No -Treatment Response Procedure Tolerated Well -Debridement - Subq, 1st 20sq cm Yes #3 Upper Mid Back -Time 10:22 -Correct Patient Yes -Correct Side, Site, Position Yes -Correct Procedure Yes -Procedure Performed Yes -Type of Procedure Debridement -Clinical Debridement Subcutaneous -Tissue Removed Subcutaneous -Post Debridement (cm) - Length 1.8 -Post Debridement (cm) - Width 1.0 -Post Debridement (cm) - Depth 0.4 -Total Square (Post) (cm) 1.80 -Area of Debridement (cm) - Length 1.8 -Area of Debridement (cm) - Width 1.0 -Total Square (Area) (cm) 1.80 -Tunneling No -Undermining/Tunneling No -Circular Undermining No -Wound/Ulcer Outcome Not Healed -Ulcer Cleansing Rinsed/ Irrigated with Saline -Foul Odor after Cleansing No -Bioengineered Tissue No -Bleeding Controlled with Pressure -Offloading No -Treatment Response Procedure Tolerated Well -Debridement - Subq, 1st 20sq cm No #2 Mid abd/Bellybutton -Time 10:22 -Correct Patient Yes -Correct Side, Site, Position Yes -Correct Procedure Yes -Procedure Performed Yes -Type of Procedure Debridement -Clinical Debridement Subcutaneous -Tissue Removed Subcutaneous -Post Debridement (cm) - Length 1.5 -Post Debridement (cm) - Width 0.7 -Post Debridement (cm) - Depth 0.9 -Total Square (Post) (cm) 1.05 -Area of Debridement (cm) - Length 1.5 -Area of Debridement (cm) - Width 0.7 -Total Square (Area) (cm) 1.05 -Tunneling No -Undermining/Tunneling No -Circular Undermining No -Wound/Ulcer Outcome Not Healed -Ulcer Cleansing Rinsed/ Irrigated with Saline -Foul Odor after Cleansing No -Bioengineered Tissue No -Bleeding Controlled with Pressure -Offloading No -Treatment Response Procedure Tolerated Well -Debridement - Subq, 1st 20sq cm No #1 Lower Abd -Time 10:23 -Correct Patient Yes -Correct Side, Site, Position Yes -Correct Procedure Yes -Procedure Performed Yes -Type of Procedure Debridement -Clinical Debridement Subcutaneous -Tissue Removed Subcutaneous -Post Debridement (cm) - Length 1.0 -Post Debridement (cm) - Width 9.0 -Post Debridement (cm) - Depth 0.1 -Total Square (Post) (cm) 9.00 -Area of Debridement (cm) - Length 1.0 -Area of Debridement (cm) - Width 9.0 -Total Square (Area) (cm) 9.00 -Tunneling No -Undermining/Tunneling No -Circular Undermining No -Wound/Ulcer Outcome Not Healed -Ulcer Cleansing Rinsed/ Irrigated with Saline -Foul Odor after Cleansing No -Bioengineered Tissue No -Bleeding Controlled with Pressure -Offloading No -Treatment Response Procedure Tolerated Well -Debridement - Subq, 1st 20sq cm No Pain Scale: 0-10 Numeric Is Patient Pain Free? Yes WC - Nurse 3 - General Ulcer D/C NN Start: 07/29/21 09:23 Freq: Status: Active Protocol: Activity Type Activity Date Activity User E-Sign Co-Sign Detail Recorded Client Recorded Date Recorded By Document 07/29/21 11:12 DL [id number] 07/29/21 11:15 DL 07/29/21 11:12 Wound Care Nurse 3 #4 Lower Mid Back -Ulcer Cleansing Rinsed/ Irrigated with Saline -Foul Odor after Cleansing No -Primary Dressing Applied Promogran -Other Dressing lightly moistened -Primary Dressing Covered/Secured with Dry Gauze, Secured with Tape -Promogran 1 #3 Upper Mid Back -Ulcer Cleansing Rinsed/ Irrigated with Saline -Foul Odor after Cleansing No -Other Dressing moistened promogran -Primary Dressing Covered/Secured with Dry Gauze, Secured with Tape #2 Mid abd/Bellybutton -Ulcer Cleansing Rinsed/ Irrigated with Saline -Foul Odor after Cleansing No -Other Dressing hydrogel today -Primary Dressing Covered/Secured with Dry Gauze, Secured with Tape #1 Lower Abd -Ulcer Cleansing Rinsed/ Irrigated with Saline -Foul Odor after Cleansing No -Other Dressing hydrogel today -Primary Dressing Covered/Secured with Dry Gauze, Secured with Tape Treatment Response Procedure Tolerated Well Pain Scale: 0-10 Numeric Is Patient Pain Free? Yes WC - Visit Discharge Discharge Condition Stable Ambulatory Status Ambulatory Transportation Private Auto Notes: Pt to obtain Santyl for abd ulcers. Additional Wound Wound debrided: Lower abdomen Type of Debridement: Excisional debridement Anesthesia Used: 4% Lidocaine Solution Depth: Down to and including healthy tissue and in the subcutaneous layer Percentage of wound debrided: 100 Instrument Used: 5mm curette, #15 blade and Forceps Tissue Removed: Slough and devitalized tissue Severity: Fat Layer Exposed Amount of bleeding with debridement: Mild Bleeding Controlled with: Pressure Patient tolerated procedure: Patient tolerated procedure well Additional Wound Wound debrided: Upper back Type of Debridement: Excisional debridement Anesthesia Used: 4% Lidocaine Solution Depth: Down to and including healthy tissue and in the subcutaneous layer Percentage of wound debrided: 100 Instrument Used: 3mm curette Tissue Removed: Slough and devitalized tissue Severity: Fat Layer Exposed Amount of bleeding with debridement: Mild Bleeding Controlled with: Pressure Patient tolerated procedure: Patient tolerated procedure well Additional Wound Wound debrided: Lower back/buttock Type of Debridement: Excisional debridement Anesthesia Used: 4% Lidocaine Solution Depth: Down to and including healthy tissue and in the subcutaneous layer Percentage of wound debrided: 100 Instrument Used: 3mm curette Tissue Removed: Slough and devitalized tissue Severity: Fat Layer Exposed Amount of bleeding with debridement: Mild Bleeding Controlled with: Pressure Patient tolerated procedure: Patient tolerated procedure well Charges/Coding Visit Charges Office Visits / Consults: [id number] OV L4 New Procedures Integumentary [id number]: [id number] Hollie subq tissue 20 sq cm/< Assessment/Plan Assessment/Plan (1) Surgical wound breakdown: CODE(S): T81.31XA - Disruption of external operation (surgical) wound, not elsewhere classified, initial encounter QUALIFIERS: Encounter type: initial encounter Qualified Code(s): T81.31XA - Disruption of external operation (surgical) wound, not elsewhere classified, initial encounter (2) Non-healing surgical wound: CODE(S): T81.89XA - Other complications of procedures, not elsewhere classified, initial encounter QUALIFIERS: Encounter type: initial encounter Qualified Code(s): T81.89XA - Other complications of procedures, not elsewhere classified, initial encounter PLAN: Debridement done as documented above, procedure was well-tolerated. Surgical wound as a whole looks good. Areas of breakdown debrided. Due to significant slough and areas of necrosis, will start with Santyl to the umbilicus and lower abdominal area. Promogran to the upper back and lower back/buttock area. Change daily. Cover with moistened gauze and ABD. May change more frequently if significant drainage is noted. No significant concerns for infection at this time and so no cultures taken. Will review at next visit. Increased protein intake, vitamin C and zinc recommended. She voiced understanding. Her questions were answered and she was advised to call with any further questions or concerns. Follow-up in a week. This note was generated with [employer] dictation software. It may contain incorrect words, spelling, and punctuation that were not noted in checking the note before signing.
[2021-08-05 09:43] VITALS: BP 133/81; PULSE 86; RESP 16; TEMP 36.3; BMI 28.4
--- NOTE | 2021-08-05 13:05 | PN.PCM_ITS ---
History of Present Illness Date of Service: 08/05/21 Chief Complaint: Surgical wound break down History of Wound: Ms. Quintero is a 35-year-old who presents to the wound center due to surgical wound breakdown. Had extensive surgery done in June to remove excess skin following weight loss from bariatric surgery. Surgery was done in [place]. Surgery was uneventful and for the most part has done really well post surgery. Had some areas of wound breakdown. Has been applying Medihoney and Aquacel without any significant improvement. Minimal clear with blood tingled drainage. She was referred here by her primary care physician. She denies any history of diabetes mellitus, tobacco or alcohol abuse. Feels well otherwise. Progress of Wound: Wound is improving however, increase drainage also noted. Has been applying Santyl to the abdominal and Pomogran to the back and buttock. Subjective Subjective No acute concerns at this time. Objective Data Objective Data Vital Signs: Vital Signs Temp Pulse Resp BP 97.4 F L 86 16 133/81 H 08/05/21 09:43 08/05/21 09:43 08/05/21 09:43 08/05/21 09:43 Oxygen Delivery Method Room Air Weight: 160 lb 11.834 oz Body Mass Index (BMI) 28.4 Charges/Coding Procedures Integumentary 111xxx-113xx: [id number] Hollie subq tissue 20 sq cm/< Physical Exam Const alert, oriented x3 and no apparent distress General Appearance: cooperative, comfortable, well kempt and well developed HEENT normocephalic and head/scalp atraumatic Head and Scalp: normal to inspection and normocephalic Eyes EOMs intact bilaterally General Eye: normal appearance of both eyes Neck full ROM General: normal visual inspection Resp normal respiratory effort Effort and Inspection: able to speak in complete sentences Cardio regular rate, regular rhythm, S1 normal heart sound and S2 normal heart sound Skin Wounds: wounds noted Neuro oriented x3, CN's II-XII intact bilaterally, moves all extremities and no focal motor deficits Psych mental status grossly normal Appearance: grossly normal Attitude: calm Activity / Motor Behavior: appropriate eye contact Speech: normal speech Thought Process: normal thought process Debridement Note Debridement Note Wound debrided: Lower abdomen Type of Debridement: Excisional debridement Anesthesia Used: 4% Lidocaine Solution Depth: Down to and including healthy tissue and in the subcutaneous layer Percentage of wound debrided: 100 Instrument Used: 3mm curette Tissue Removed: Slough and devitalized tissue Severity: Fat Layer Exposed Amount of bleeding with debridement: Mild Bleeding Controlled with: Pressure Patient tolerated procedure: Patient tolerated procedure well Post-Debridement Measurements and Additional Note: Post-Debridement Measu rements/Treatment WC - Nurse 1 - General Ulcer Assessment Start: 07/29/21 09:23 Freq: Status: Active Protocol: [email or web address] Activity Type Activity Date Activity User E-Sign Co-Sign Detail Recorded Client Recorded Date Recorded By Document 07/29/21 09:23 DL [id number] 07/29/21 09:51 DL Document 08/05/21 09:43 MW [id number] 08/05/21 09:56 MW 07/29/21 08/05/21 09:23 09:43 WC - Today's Visit Information Type of service Initial Visit Follow-up Visit (Physician/CARE ASST ) Arrival Mode Ambulatory Ambulatory Transfer Assistance None None Accompanied by MOM Patient Identification Verified (Name & Yes Yes ) Patient Requires Transmission-Based No Precautions Safety Precautions NA Height and Weight Height 5 ft 3 in Weight 160 lb 11.834 oz Weight in Pounds 160.7 lbs Body Mass Index (BMI) 28.4 28.4 BMI Classification Overweight Overweight BSA - Keily 1.76 Vital Signs Temperature (97.8 F-99.1 F) 98.1 F 97.4 F L Temperature Source Temporal Temporal Pulse Rate (60-100) 78 86 Pulse Location Monitor Monitor Respiratory Rate (12-18) 20 H 16 Respiratory rate source Observation Observation Oxygen Delivery Method Room Air Blood Pressure (90/60-120/80) 133/87 H 133/81 H Blood Pressure Mean (mm Hg) 102 98 Source Monitor Monitor Position Sitting Blood Pressure Location Right Arm History Since Last Visit- (Skip if this is Patient's initial visit) Have you changed medications since your No last visit? Any new allergies or adverse reactions No Had a fall/change in ADL's that may No increase risk of falls Signs or symptoms of abuse and/or No neglect since last visit Have you been in the hospital since your No last visit? Has dressing in place as prescribed Yes Has compression in place as prescribed N/A Has offloadiing in place as prescribed N/A Experienced any changes in pain level or No management Left Footwear Regular Shoe Right Footwear Regular Shoe Pain Scale: 0-10 Numeric Is Patient Pain Free? Yes Yes Communication Assessment Preferred language Ukrainian Able to Read Yes Able to Write Yes Communication Tools None Right Hearing Abillity Normal Left Hearing Abillity Normal Visual Assistive Devices None Teaching Assessment Preferences Verbal,Written, Demonstration Barriers to Learning None Readiness To Learn Good Willingness to Engage in Self Management Med Activies Readiness to Engage in Self Management Med Activities Anxiety Level Calm Cooperation Cooperative Perception Coherent Interest in Health Problem Asks Questions Education Importance Acknowledges Need Does Patient Smoke tobacco or other No substances Smoking Status Never smoker Is Patient Diabetic No Functional Assessment Recent Decline in Ability to Perform Denies Any Declines Culture/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 Sawing And Assembly Supervisor to contact place of gnosticist No Teaching: Wound Center *Nutrition -Person Taught Patient Discharge Instructions -Person Taught Patient Dressing Your Wound -Person Taught Patient *Welcome to the Wound Center -Person Taught Patient WC - Nurse 1 - General Ulcer Measurement Start: 07/29/21 09:23 Freq: Status: Active Protocol: Activity Type Activity Date Activity User E-Sign Co-Sign Detail Recorded Client Recorded Date Recorded By Document 07/29/21 09:23 DL [id number] 07/29/21 09:51 DL Document 08/05/21 09:43 MW [id number] 08/05/21 09:56 MW 07/29/21 08/05/21 09:23 09:43 Wound Center Nurse 1 #4 Lower Mid Back -Combined with other wound No -Current Size (cm) - Length 0.3 1.1 -Current Size (cm) - Width 0.3 0.5 -Current Size (cm) - Depth 0.2 0.3 -Total Square Cm 0.09 0.55 -Photo Taken Yes No -Epithelialization None Present -Tunneling No -Undermining/Tunneling Yes -Undermining/Tunneling Starts (O'clock 1 ) -Undermining/Tunneling Ends (O'clock) 2 -Maximum Distance (cm) 0.1 -Circular Undermining No -Classification - Thickness Full Thickness without Exposed Support Structure -Exudate Amt Medium Small -Exudate Type Serosanguineous Serosanguineous -Wound Margin Distinct, Distinct, Outline Outline Attached Attached -Granulation Amt None Present (0 Small (1-33%) %) -Granulation Quality [place] -Slough/Fibrin Yes -Necrosis Amt Small (1-33%) Large (67-100%) -Necrotic Tissue Type Adherent Slough Adherent Slough -Structure Exposed N/A N/A -Texture (Anca-wound Skin Appearance) Scarring Assessed, Scarring -Moisture (Anca-wound Skin Appearance) No Abnormality No Abnormality, Assessed -Color (Anca-wound Skin Appearance) No Abnormality No Abnormality, Assessed -Temperature (Anca-wound Skin No Abnormality No Abnormality Appearance) (Pt Warm) (Pt Warm) -Tenderness on Palpation (Anca-wound No No Skin Appearance) -Ulcer Cleansing Soap and Water Rinsed/ Irrigated with Saline -Foul Odor after Cleansing No No -Anesthetic Used 4% Lidocaine 4% Lidocaine Solution Solution #3 Upper Mid Back -Combined with other wound No -Current Size (cm) - Length 0.8 1.5 -Current Size (cm) - Width 0.8 0.7 -Current Size (cm) - Depth 0.2 0.2 -Total Square Cm 0.64 1.05 -Photo Taken Yes No -Epithelialization None Present -Tunneling No -Undermining/Tunneling No -Circular Undermining No -Exudate Amt Medium Small -Exudate Type Serosanguineous Serosanguineous -Wound Margin Distinct, Distinct, Outline Outline Attached Attached -Granulation Amt None Present (0 Small (1-33%) %) -Granulation Quality [place] -Slough/Fibrin Yes -Necrosis Amt Small (1-33%) Large (67-100%) -Necrotic Tissue Type Adherent Slough Adherent Slough -Structure Exposed N/A N/A -Texture (Anca-wound Skin Appearance) Scarring Assessed, Scarring -Moisture (Anca-wound Skin Appearance) No Abnormality No Abnormality, Assessed -Color (Anca-wound Skin Appearance) No Abnormality No Abnormality, Assessed -Temperature (Anca-wound Skin No Abnormality No Abnormality Appearance) (Pt Warm) (Pt Warm) -Tenderness on Palpation (Anca-wound No Yes Skin Appearance) -Ulcer Cleansing Soap and Water Rinsed/ Irrigated with Saline -Foul Odor after Cleansing No No -Anesthetic Used 4% Lidocaine 4% Lidocaine Solution Solution #2 Mid abd/Bellybutton -Combined with other wound No -Current Size (cm) - Length 1 1.0 -Current Size (cm) - Width 0.5 0.5 -Current Size (cm) - Depth 0.7 0.7 -Total Square Cm 0.5 0.50 -Photo Taken Yes No -Epithelialization None Present -Tunneling Yes -Tunneling Position (O'clock) 6 -Tunneling Distance (cm) 3.3 -Undermining/Tunneling Yes -Undermining/Tunneling Starts (O'clock 12 ) -Undermining/Tunneling Ends (O'clock) 6 -Maximum Distance (cm) 0.4 -Exudate Amt Medium Large -Exudate Type Serosanguineous Serosanguineous -Wound Margin Distinct, Indistinct, Non Outline -Visible Attached -Granulation Amt Medium (34-66%) None Present (0 %) -Granulation Quality Pale,[place] N/A -Slough/Fibrin Yes -Necrosis Amt Medium (34-66%) Large (67-100%) -Necrotic Tissue Type Adherent Slough Adherent Slough -Structure Exposed N/A N/A -Texture (Anca-wound Skin Appearance) Scarring Assessed, Scarring -Moisture (Anca-wound Skin Appearance) Dry/Scaly No Abnormality, Assessed -Color (Anca-wound Skin Appearance) No Abnormality No Abnormality, Assessed -Temperature (Anca-wound Skin No Abnormality No Abnormality Appearance) (Pt Warm) (Pt Warm) -Tenderness on Palpation (Anca-wound No No Skin Appearance) -Ulcer Cleansing Soap and Water Rinsed/ Irrigated with Saline -Foul Odor after Cleansing No No -Anesthetic Used 4% Lidocaine 4% Lidocaine Solution Solution #1 Lower Abd -Combined with other wound No -Current Size (cm) - Length 2.2 1.0 -Current Size (cm) - Width 8.2 8.3 -Current Size (cm) - Depth 0.2 0.2 -Total Square Cm 18.04 8.30 -Photo Taken Yes No -Epithelialization None Present -Tunneling No -Undermining/Tunneling No -Circular Undermining No -Exudate Amt Medium Medium -Exudate Type Serosanguineous Purulent -Wound Margin Distinct, Distinct, Outline Outline Attached Attached -Granulation Amt Small (1-33%) Small (1-33%) -Granulation Quality [place] Bartow -Slough/Fibrin Yes -Necrosis Amt Large (67-100%) Large (67-100%) -Necrotic Tissue Type Eschar Adherent Slough -Structure Exposed N/A N/A -Texture (Anca-wound Skin Appearance) Localized Edema Assessed, ,Scarring Scarring -Moisture (Anca-wound Skin Appearance) No Abnormality No Abnormality, Assessed -Color (Anca-wound Skin Appearance) No Abnormality No Abnormality, Assessed -Temperature (Anca-wound Skin No Abnormality No Abnormality Appearance) (Pt Warm) (Pt Warm) -Tenderness on Palpation (Anca-wound No No Skin Appearance) -Ulcer Cleansing Soap and Water Rinsed/ Irrigated with Saline -Foul Odor after Cleansing No No -Anesthetic Used 4% Lidocaine 4% Lidocaine Solution Solution Lower Limb Edema Present No WC - Nurse 2 - General Ulcer CM Notes Start: 07/29/21 09:23 Freq: Status: Active Protocol: Activity Type Activity Date Activity User E-Sign Co-Sign Detail Recorded Client Recorded Date Recorded By Document 07/29/21 10:21 MW [id number] 07/29/21 10:51 MW Document 08/05/21 10:01 MW [id number] 08/05/21 10:28 MW 07/29/21 08/05/21 10:21 10:01 Wound Center Nurse 2 #5 RIGHT BREAST -Time 10:27 -Correct Patient Yes -Correct Side, Site, Position Yes -Correct Procedure Yes -Procedure Performed Yes -Type of Procedure Debridement -Clinical Debridement Subcutaneous -Tissue Removed Subcutaneous -Post Debridement (cm) - Length 0.7 -Post Debridement (cm) - Width 1.0 -Post Debridement (cm) - Depth 0.1 -Total Square (Post) (cm) 0.70 -Area of Debridement (cm) - Length 0.7 -Area of Debridement (cm) - Width 1.0 -Total Square (Area) (cm) 0.70 -Tunneling No -Undermining/Tunneling No -Circular Undermining No -Wound/Ulcer Outcome Not Healed -Ulcer Cleansing Rinsed/ Irrigated with Saline -Foul Odor after Cleansing No -Bioengineered Tissue No -Bleeding Controlled with Pressure -Offloading No -Treatment Response Procedure Tolerated Well -Debridement - Subq, 1st 20sq cm No #4 Lower Mid Back -Time 10:22 10:02 -Correct Patient Yes Yes -Correct Side, Site, Position Yes Yes -Correct Procedure Yes Yes -Procedure Performed Yes Yes -Type of Procedure Debridement Debridement -Clinical Debridement Subcutaneous Subcutaneous -Tissue Removed Subcutaneous Subcutaneous -Post Debridement (cm) - Length 1.0 1.0 -Post Debridement (cm) - Width 0.5 0.3 -Post Debridement (cm) - Depth 1.2 0.4 -Total Square (Post) (cm) 0.50 0.30 -Area of Debridement (cm) - Length 1.0 1.0 -Area of Debridement (cm) - Width 0.5 0.3 -Total Square (Area) (cm) 0.50 0.30 -Tunneling No No -Undermining/Tunneling No No -Circular Undermining No No -Wound/Ulcer Outcome Not Healed Not Healed -Ulcer Cleansing Rinsed/ Rinsed/ Irrigated with Irrigated with Saline Saline -Foul Odor after Cleansing No No -Bioengineered Tissue No No -Bleeding Controlled with Pressure Pressure -Offloading No No -Treatment Response Procedure Procedure Tolerated Well Tolerated Well -Debridement - Subq, 1st 20sq cm Yes Yes #3 Upper Mid Back -Time 10:22 10:03 -Correct Patient Yes Yes -Correct Side, Site, Position Yes Yes -Correct Procedure Yes Yes -Procedure Performed Yes Yes -Type of Procedure Debridement Debridement -Clinical Debridement Subcutaneous Subcutaneous -Tissue Removed Subcutaneous Subcutaneous -Post Debridement (cm) - Length 1.8 1.5 -Post Debridement (cm) - Width 1.0 1.0 -Post Debridement (cm) - Depth 0.4 0.1 -Total Square (Post) (cm) 1.80 1.50 -Area of Debridement (cm) - Length 1.8 1.5 -Area of Debridement (cm) - Width 1.0 1.0 -Total Square (Area) (cm) 1.80 1.50 -Tunneling No No -Undermining/Tunneling No No -Circular Undermining No No -Wound/Ulcer Outcome Not Healed Not Healed -Ulcer Cleansing Rinsed/ Rinsed/ Irrigated with Irrigated with Saline Saline -Foul Odor after Cleansing No No -Bioengineered Tissue No No -Bleeding Controlled with Pressure Pressure -Offloading No No -Treatment Response Procedure Procedure Tolerated Well Tolerated Well -Debridement - Subq, 1st 20sq cm No No #2 Mid abd/Bellybutton -Time 10:22 10:06 -Correct Patient Yes Yes -Correct Side, Site, Position Yes Yes -Correct Procedure Yes Yes -Procedure Performed Yes Yes -Type of Procedure Debridement Debridement -Clinical Debridement Subcutaneous Subcutaneous -Tissue Removed Subcutaneous Subcutaneous -Post Debridement (cm) - Length 1.5 1.2 -Post Debridement (cm) - Width 0.7 0.8 -Post Debridement (cm) - Depth 0.9 1.5 -Total Square (Post) (cm) 1.05 0.96 -Area of Debridement (cm) - Length 1.5 1.2 -Area of Debridement (cm) - Width 0.7 0.8 -Total Square (Area) (cm) 1.05 0.96 -Tunneling No Yes -Tunneling Position (O'clock) 6 -Tunneling Distance (cm) 3.0 -Undermining/Tunneling No No -Circular Undermining No No -Wound/Ulcer Outcome Not Healed Not Healed -Ulcer Cleansing Rinsed/ Rinsed/ Irrigated with Irrigated with Saline Saline -Foul Odor after Cleansing No No -Bioengineered Tissue No No -Bleeding Controlled with Pressure Pressure -Offloading No No -Treatment Response Procedure Procedure Tolerated Well Tolerated Well -Debridement - Subq, 1st 20sq cm No No #1 Lower Abd -Time 10:23 10:06 -Correct Patient Yes Yes -Correct Side, Site, Position Yes Yes -Correct Procedure Yes Yes -Procedure Performed Yes Yes -Type of Procedure Debridement Debridement -Clinical Debridement Subcutaneous Subcutaneous -Tissue Removed Subcutaneous Subcutaneous -Post Debridement (cm) - Length 1.0 0.7 -Post Debridement (cm) - Width 9.0 8.3 -Post Debridement (cm) - Depth 0.1 2.7 -Total Square (Post) (cm) 9.00 5.81 -Area of Debridement (cm) - Length 1.0 0.7 -Area of Debridement (cm) - Width 9.0 8.3 -Total Square (Area) (cm) 9.00 5.81 -Tunneling No No -Undermining/Tunneling No No -Circular Undermining No No -Wound/Ulcer Outcome Not Healed Not Healed -Ulcer Cleansing Rinsed/ Rinsed/ Irrigated with Irrigated with Saline Saline -Foul Odor after Cleansing No No -Bioengineered Tissue No No -Bleeding Controlled with Pressure Pressure -Offloading No No -Treatment Response Procedure Procedure Tolerated Well Tolerated Well -Debridement - Subq, 1st 20sq cm No No Pain Scale: 0-10 Numeric Is Patient Pain Free? Yes Yes WC - Nurse 3 - General Ulcer D/C NN Start: 07/29/21 09:23 Freq: Status: Active Protocol: Activity Type Activity Date Activity User E-Sign Co-Sign Detail Recorded Client Recorded Date Recorded By Document 07/29/21 11:12 MEGAN [id number] 07/29/21 11:15 MEGAN 07/29/21 11:12 Wound Care Nurse 3 #4 Lower Mid Back -Ulcer Cleansing Rinsed/ Irrigated with Saline -Foul Odor after Cleansing No -Primary Dressing Applied Promogran -Other Dressing lightly moistened -Primary Dressing Covered/Secured with Dry Gauze, Secured with Tape -Promogran 1 #3 Upper Mid Back -Ulcer Cleansing Rinsed/ Irrigated with Saline -Foul Odor after Cleansing No -Other Dressing moistened promogran -Primary Dressing Covered/Secured with Dry Gauze, Secured with Tape #2 Mid abd/Bellybutton -Ulcer Cleansing Rinsed/ Irrigated with Saline -Foul Odor after Cleansing No -Other Dressing hydrogel today -Primary Dressing Covered/Secured with Dry Gauze, Secured with Tape #1 Lower Abd -Ulcer Cleansing Rinsed/ Irrigated with Saline -Foul Odor after Cleansing No -Other Dressing hydrogel today -Primary Dressing Covered/Secured with Dry Gauze, Secured with Tape Treatment Response Procedure Tolerated Well Pain Scale: 0-10 Numeric Is Patient Pain Free? Yes WC - Visit Discharge Discharge Condition Stable Ambulatory Status Ambulatory Transportation Private Auto Notes: Pt to obtain Santyl for abd ulcers. Additional Wound Wound debrided: Umbilical Type of Debridement: Excisional debridement Anesthesia Used: 4% Lidocaine Solution Depth: Down to and including healthy tissue and in the subcutaneous layer Percentage of wound debrided: 100 Instrument Used: 3mm curette Tissue Removed: Slough and devitalized tissue Severity: Fat Layer Exposed Amount of bleeding with debridement: Mild Bleeding Controlled with: Pressure Patient tolerated procedure: Patient tolerated procedure well Additional Wound Wound debrided: Right breast Type of Debridement: Excisional debridement Anesthesia Used: 4% Lidocaine Solution Depth: Down to and including healthy tissue and in the subcutaneous layer Percentage of wound debrided: 100 Instrument Used: 3mm curette Tissue Removed: Slough and devitalized tissue Severity: Fat Layer Exposed Amount of bleeding with debridement: Mild Bleeding Controlled with: Pressure Patient tolerated procedure: Patient tolerated procedure well Additional Wound Wound debrided: Upper back Type of Debridement: Excisional debridement Anesthesia Used: 4% Lidocaine Solution Depth: Down to and including healthy tissue and in the subcutaneous layer Percentage of wound debrided: 100 Instrument Used: 3mm curette Tissue Removed: Slough and devitalized tissue Severity: Fat Layer Exposed Amount of bleeding with debridement: Mild Bleeding Controlled with: Pressure Patient tolerated procedure: Patient tolerated procedure well Additional Wound Wound debrided: Lower back/Buttock Type of Debridement: Excisional debridement Anesthesia Used: 4% Lidocaine Solution Depth: Down to and including healthy tissue and in the subcutaneous layer Percentage of wound debrided: 100 Instrument Used: 3mm curette Tissue Removed: Slough and devitalized tissue Severity: Fat Layer Exposed Amount of bleeding with debridement: Mild Bleeding Controlled with: Pressure Patient tolerated procedure: Patient tolerated procedure well Assessment/Plan Assessment/Plan (1) Surgical wound breakdown: CODE(S): T81.31XA - Disruption of external operation (surgical) wound, not elsewhere classified, initial encounter QUALIFIERS: Encounter type: initial encounter Qualified Code(s): T81.31XA - Disruption of external operation (surgical) wound, not elsewhere classified, initial encounter (2) Non-healing surgical wound: CODE(S): T81.89XA - Other complications of procedures, not elsewhere classified, initial encounter QUALIFIERS: Encounter type: initial encounter Qualified Code(s): T81.89XA - Other complications of procedures, not elsewhere classified, initial encounter PLAN: Debridement done as documented above, procedure was well-tolerated. Some improvement noted however also noted with increased serosanguineous fluid drainage. Had been told by her surgeon that she had a seroma I believe that is what the drainage is from. Gentle massage and pressure applied to drain. She was advised to do this at home. Aquacel extra to abdominal wounds, may change 3-4 times daily depending on drainage. Cover with ABD. Promogran to the upper back, lower back/buttock area and right breast. Change daily. Increased protein intake, vitamin C and zinc recommended. She voiced understanding. Her questions were answered and she was advised to call with any further questions or concerns. Follow-up in a week. This note was generated with [employer] dictation software. It may contain incorrect words, spelling, and punctuation that were not noted in checking the note before signing.
== END 2021-08-09 23:59 ==
LOC: WC 09:45
PROVIDERS: Visit Provider Internal Medicine
DX: T81.89XA Other complications of procedures, not elsewhere classified, initial encounter (principal); L98.492 Non-pressure chronic ulcer of skin of other sites with fat layer exposed; L98.422 Non-pressure chronic ulcer of back with fat layer exposed; L98.412 Non-pressure chronic ulcer of buttock with fat layer exposed; F32.A Depression, unspecified; F41.9 Anxiety disorder, unspecified; K21.9 Gastro-esophageal reflux disease without esophagitis; Z98.84 Bariatric surgery status; Z79.899 Other long term (current) drug therapy; Y83.8 Other surgical procedures as the cause of abnormal reaction of the patient, or of later complication, without mention of misadventure at the time of the procedure; T81.31XA Disruption of external operation (surgical) wound, not elsewhere classified, initial encounter; N61.1 Abscess of the breast and nipple
CPT/HCPCS: 11042; 99203; G0463

== ENCOUNTER 2021-09-09 09:30 | Outpatient (RCR) | payer MEDICAID, SELFPAY ==
[2021-08-10 00:42] VITALS: BP 133/81; PULSE 86; RESP 16; TEMP 36.3; BMI 28.4
[2021-08-12 11:52] VITALS: BP 149/94; PULSE 70; RESP 18; TEMP 36.2; BMI 28.4
--- NOTE | 2021-08-12 13:24 | PCM.WC.PN ---
History of Present Illness Date of Service: 08/12/21 Chief Complaint: Surgical wound break down History of Wound: Ms. Quintero is a 35-year-old who presents to the wound center due to surgical wound breakdown. Had extensive surgery done in June to remove excess skin following weight loss from bariatric surgery. Surgery was done in [place]. Surgery was uneventful and for the most part has done really well post surgery. Had some areas of wound breakdown. Has been applying Medihoney and Aquacel without any significant improvement. Minimal clear with blood tingled drainage. She was referred here by her primary care physician. She denies any history of diabetes mellitus, tobacco or alcohol abuse. Feels well otherwise. Progress of Wound: Still reports a lot of drainage from the abdominal wounds. Back and buttock wounds are improving. Subjective Subjective No acute concerns at this time. Objective Data Objective Data Vital Signs: Vital Signs Temp Pulse Resp BP 97.1 F L 70 18 149/94 H 08/12/21 11:52 08/12/21 11:52 08/12/21 11:52 08/12/21 11:52 Weight: 160 lb 11.834 oz Body Mass Index (BMI) 28.4 Charges/Coding Procedures Integumentary 111xxx-113xx: [id number] Hollie subq tissue 20 sq cm/< Physical Exam Const alert, oriented x3 and no apparent distress General Appearance: cooperative, comfortable, well kempt and well developed HEENT normocephalic and head/scalp atraumatic Head and Scalp: normal to inspection and normocephalic Eyes EOMs intact bilaterally General Eye: normal appearance of both eyes Neck full ROM General: normal visual inspection Resp normal respiratory effort Effort and Inspection: able to speak in complete sentences Cardio regular rate, regular rhythm, S1 normal heart sound and S2 normal heart sound Skin Wounds: wounds noted Neuro oriented x3, CN's II-XII intact bilaterally, moves all extremities and no focal motor deficits Psych mental status grossly normal Appearance: grossly normal Attitude: calm Activity / Motor Behavior: appropriate eye contact Speech: normal speech Thought Process: normal thought process Debridement Note Debridement Note Wound debrided: Lower abdomen (right-sided) Type of Debridement: Excisional debridement Anesthesia Used: 4% Lidocaine Solution Depth: Down to and including healthy tissue and in the subcutaneous layer Percentage of wound debrided: 100 Instrument Used: 5mm curette Tissue Removed: Slough and devitalized tissue Severity: Fat Layer Exposed Amount of bleeding with debridement: Mild Bleeding Controlled with: Pressure Patient tolerated procedure: Patient tolerated procedure well Post-Debridement Measurements and Additional Note: Post-Debridement Measurements/Treatment - Nurse 1 - General Ulcer Assessment Start: 08/12/21 09:54 Freq: Status: Active Protocol: KANG Activity Type Activity Date Activity User E-Sign Co-Sign Detail Recorded Client Recorded Date Recorded By Document 08/12/21 11:52 DL [id number] 08/12/21 11:57 DL 08/12/21 11:52 WC - Today's Visit Information Type of service 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-up Visit (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 ) Arrival Mode Ambulatory Transfer Assistance None Patient Identification Verified (Name & Yes ) Patient Requires Transmission-Based No Precautions Height and Weight Body Mass Index (BMI) 28.4 BMI Classification Overweight Vital Signs Temperature (97.8 F-99.1 F) 97.1 F L Temperature Source Temporal Pulse Rate (60-100) 70 Pulse Location Monitor Respiratory Rate (12-18) 18 Respiratory rate source Observation Blood Pressure (90/60-120/80) 149/94 H Blood Pressure Mean (mm Hg) 112 Source Monitor History Since Last Visit- (Skip if this is Patient's initial visit) Have you changed medications since your No last visit? Any new allergies or adverse reactions No Had a fall/change in ADL's that may No increase risk of falls Signs or symptoms of abuse and/or No neglect since last visit Have you been in the hospital since your No last visit? Has dressing in place as prescribed Yes Has offloadiing in place as prescribed N/A Experienced any changes in pain level or No management Pain Scale: 0-10 Numeric Is Patient Pain Free? Yes - Nurse 1 - General Ulcer Measurement Start: 08/12/21 09:54 Freq: Status: Active Protocol: Activity Type Activity Date Activity User E-Sign Co-Sign Detail Recorded Client Recorded Date Recorded By Document 08/12/21 11:52 DL [id number] 08/12/21 11:57 DL Edit Result 08/12/21 11:52 DL (1) [id number] 08/12/21 12:10 DL (1) #1 Lower Abd - Current Size (cm) - Length => 0.7 - Current Size (cm) - Width => 8 - Current Size (cm) - Depth => 2.8 - Total Square Cm => 5.6 - Photo Taken => No - Tunneling Position (O'clock) => 3 - Tunneling Distance (cm) => 3.6 - Maximum Distance #2 (cm) => 1.1 - Circular Undermining => Yes - Exudate Amt => Medium - Exudate Type => Serosanguineous - Wound Margin => Distinct, Outline => Attached - Granulation Amt => None Present (0%) - Necrosis Amt => Large (67-100%) - Necrotic Tissue Type => Adherent Slough - Texture (Anca-wound Skin Appearance) => Scarring - Moisture (Anca-wound Skin Appearance) => No Abnormality - Color (Anca-wound Skin Appearance) => No Abnormality - Temperature (Anca-wound Skin => No Abnormality (Pt Appearance) => Warm) - Tenderness on Palpation (Anca-wound => No Skin Appearance) - Ulcer Cleansing => Soap and Water - Foul Odor after Cleansing => No - Anesthetic Used => 4% Lidocaine => Solution 08/12/21 11:52 Wound Center Nurse 1 #5 RIGHT BREAST -Current Size (cm) - Length 0.7 -Current Size (cm) - Width 0.6 -Current Size (cm) - Depth 0.1 -Total Square Cm 0.42 -Photo Taken No -Exudate Amt None Present -Wound Margin Distinct, Outline Attached -Granulation Amt Small (1-33%) -Granulation Quality Red -Necrosis Amt Small (1-33%) -Necrotic Tissue Type Adherent Slough -Structure Exposed N/A -Texture (Anca-wound Skin Appearance) Scarring -Moisture (Anca-wound Skin Appearance) No Abnormality -Color (Anca-wound Skin Appearance) No Abnormality -Temperature (Anca-wound Skin No Abnormality Appearance) (Pt Warm) -Tenderness on Palpation (Anca-wound No Skin Appearance) -Ulcer Cleansing Soap and Water -Foul Odor after Cleansing No -Anesthetic Used 4% Lidocaine Solution #4 Lower Mid Back -Current Size (cm) - Length 0.6 -Current Size (cm) - Width 0.4 -Current Size (cm) - Depth 0.1 -Total Square Cm 0.24 -Photo Taken No -Exudate Amt None Present -Granulation Amt None Present (0 %) -Necrosis Amt Large (67-100%) -Necrotic Tissue Type Adherent Slough -Structure Exposed N/A -Texture (Anca-wound Skin Appearance) Scarring -Moisture (Anca-wound Skin Appearance) No Abnormality -Color (Anca-wound Skin Appearance) No Abnormality -Temperature (Anca-wound Skin No Abnormality Appearance) (Pt Warm) -Tenderness on Palpation (Anca-wound No Skin Appearance) -Ulcer Cleansing Soap and Water -Foul Odor after Cleansing No -Anesthetic Used 5% Lidocaine Gel #3 Upper Mid Back -Current Size (cm) - Length 1.1 -Current Size (cm) - Width 0.5 -Current Size (cm) - Depth 0.1 -Total Square Cm 0.55 -Photo Taken No -Exudate Amt Small -Exudate Type Serosanguineous -Wound Margin Distinct, Outline Attached -Granulation Amt Small (1-33%) -Granulation Quality Red -Necrosis Amt Small (1-33%) -Necrotic Tissue Type Adherent Slough -Structure Exposed N/A -Texture (Anca-wound Skin Appearance) Scarring -Moisture (Anca-wound Skin Appearance) No Abnormality -Color (Anca-wound Skin Appearance) No Abnormality -Temperature (Anca-wound Skin No Abnormality Appearance) (Pt Warm) -Tenderness on Palpation (Anca-wound No Skin Appearance) -Ulcer Cleansing Soap and Water -Foul Odor after Cleansing No -Anesthetic Used 5% Lidocaine Gel #2 Mid abd/Bellybutton -Current Size (cm) - Length 0.8 -Current Size (cm) - Width 0.6 -Current Size (cm) - Depth 1 -Total Square Cm 0.48 -Photo Taken No -Tunneling Position (O'clock) 7 -Tunneling Distance (cm) 2.5 -Maximum Distance #2 (cm) 0.3 -Circular Undermining Yes -Exudate Amt Small -Exudate Type Serosanguineous -Wound Margin Distinct, Outline Attached -Granulation Amt Medium (34-66%) -Granulation Quality Pale,[place] -Necrosis Amt Medium (34-66%) -Necrotic Tissue Type Adherent Slough -Structure Exposed N/A -Texture (Anca-wound Skin Appearance) Scarring -Moisture (Anca-wound Skin Appearance) No Abnormality -Color (Anca-wound Skin Appearance) No Abnormality -Tenderness on Palpation (Anca-wound No Skin Appearance) -Ulcer Cleansing Soap and Water -Foul Odor after Cleansing No -Anesthetic Used 4% Lidocaine Solution #1 Lower Abd -Current Size (cm) - Length 0.7 -Current Size (cm) - Width 8 -Current Size (cm) - Depth 2.8 -Total Square Cm 5.6 -Photo Taken No -Tunneling Position (O'clock) 3 -Tunneling Distance (cm) 3.6 -Maximum Distance #2 (cm) 1.1 -Circular Undermining Yes -Exudate Amt Medium -Exudate Type Serosanguineous -Wound Margin Distinct, Outline Attached -Granulation Amt None Present (0 %) -Necrosis Amt Large (67-100%) -Necrotic Tissue Type Adherent Slough -Texture (Anca-wound Skin Appearance) Scarring -Moisture (Anca-wound Skin Appearance) No Abnormality -Color (Anca-wound Skin Appearance) No Abnormality -Temperature (Anca-wound Skin No Abnormality Appearance) (Pt Warm) -Tenderness on Palpation (Anca-wound No Skin Appearance) -Ulcer Cleansing Soap and Water -Foul Odor after Cleansing No -Anesthetic Used 4% Lidocaine Solution Additional Wound Wound debrided: Lower abdomen (left-sided) Type of Debridement: Excisional debridement Anesthesia Used: 4% Lidocaine Solution Depth: Down to and including healthy tissue and in the subcutaneous layer Percentage of wound debrided: 100 Instrument Used: 5mm curette, #15 blade and Forceps Tissue Removed: Slough and devitalized tissue Severity: Fat Layer Exposed Amount of bleeding with debridement: Mild Bleeding Controlled with: Pressure Patient tolerated procedure: Patient tolerated procedure well Additional Wound Wound debrided: Umbilical Type of Debridement: Excisional debridement Depth: Down to and including healthy tissue and in the subcutaneous layer Percentage of wound debrided: 100 Instrument Used: 3mm curette Tissue Removed: Slough and devitalized tissue Severity: Fat Layer Exposed Amount of bleeding with debridement: Mild Bleeding Controlled with: Pressure Patient tolerated procedure: Patient tolerated procedure well Additional Wound Wound debrided: Upper back Type of Debridement: Excisional debridement Anesthesia Used: 4% Lidocaine Solution Depth: Down to and including healthy tissue and in the subcutaneous layer Percentage of wound debrided: 100 Instrument Used: 3mm curette Tissue Removed: Slough and devitalized tissue Severity: Fat Layer Exposed Amount of bleeding with debridement: Mild Bleeding Controlled with: Pressure Patient tolerated procedure: Patient tolerated procedure well Additional Wound Wound debrided: Left buttock/lower back Type of Debridement: Excisional debridement Anesthesia Used: 4% Lidocaine Solution Depth: Down to and including healthy tissue and in the subcutaneous layer Percentage of wound debrided: 100 Instrument Used: 3mm curette Tissue Removed: Slough and devitalized tissue Severity: Fat Layer Exposed Amount of bleeding with debridement: Mild Bleeding Controlled with: Pressure Patient tolerated procedure: Patient tolerated procedure well Assessment/Plan Assessment/Plan (1) Surgical wound breakdown: CODE(S): T81.31XA - Disruption of external operation (surgical) wound, not elsewhere classified, initial encounter QUALIFIERS: Encounter type: initial encounter Qualified Code(s): T81.31XA - Disruption of external operation (surgical) wound, not elsewhere classified, initial encounter (2) Non-healing surgical wound: CODE(S): T81.89XA - Other complications of procedures, not elsewhere classified, initial encounter QUALIFIERS: Encounter type: initial encounter Qualified Code(s): T81.89XA - Other complications of procedures, not elsewhere classified, initial encounter PLAN: Debridement done as documented above, procedure was well-tolerated. Some improvement to the upper back and lower back wounds. Abdominal still with significant drainage. Some worsening wound depth and size as well. I believe she will benefit from a wound VAC due to drainage in depth. Order placed. Will need home health as well to help with changing the wound VAC. Order for home health placed. Continue Aquacel extra to abdominal wounds, may change 3-4 times daily depending on drainage. Cover with ABD. Promogran to the upper back, lower back/buttock area and right breast. Change daily. Increased protein intake, vitamin C and zinc recommended. She voiced understanding. Her questions were answered and she was advised to call with any further questions or concerns. Follow-up in a week. This note was generated with [employer] software. It may contain incorrect words, spelling, and punctuation that were not noted in checking the note before signing.
[2021-08-19 09:31] VITALS: BP 135/70; PULSE 81; RESP 20; TEMP 36.4; BMI 28.4
--- NOTE | 2021-08-19 13:18 | PN.PCM_ITS ---
History of Present Illness Date of Service: 08/19/21 Chief Complaint: Surgical wound break down History of Wound: Ms. Quintero is a 35-year-old who presents to the wound center due to surgical wound breakdown. Had extensive surgery done in June to remove excess skin following weight loss from bariatric surgery. Surgery was done in [place]. Surgery was uneventful and for the most part has done really well post surgery. Had some areas of wound breakdown. Has been applying Medihoney and Aquacel without any significant improvement. Minimal clear with blood tingled drainage. She was referred here by her primary care physician. She denies any history of diabetes mellitus, tobacco or alcohol abuse. Feels well otherwise. Progress of Wound: Still reports a lot of drainage from the abdominal wounds. Drainage now said to be slimy. Received the wound VAC yesterday yet to start use. Back and buttock wounds are improving. Subjective Subjective No acute concerns at this time Objective Data Objective Data Vital Signs: Vital Signs Temp Pulse Resp BP 97.6 F L 81 20 H 135/70 H 08/19/21 09:31 08/19/21 09:31 08/19/21 09:31 08/19/21 09:31 Weight: 160 lb 11.834 oz Body Mass Index (BMI) 28.4 Charges/Coding Procedures Integumentary 111xxx-113xx: [id number] Hollie subq tissue 20 sq cm/< Physical Exam Const alert, oriented x3 and no apparent distress General Appearance: cooperative, comfortable, well kempt and well developed HEENT normocephalic and head/scalp atraumatic Head and Scalp: normal to inspection and normocephalic Eyes EOMs intact bilaterally General Eye: normal appearance of both eyes Neck full ROM General: normal visual inspection Resp normal respiratory effort Effort and Inspection: able to speak in complete sentences Skin Wounds: wounds noted Neuro oriented x3, CN's II-XII intact bilaterally, moves all extremities and no focal motor deficits Psych mental status grossly normal Appearance: grossly normal Attitude: calm Activity / Motor Behavior: appropriate eye contact Speech: normal speech Thought Process: normal thought process Debridement Note Debridement Note Wound debrided: Left-sided lower abdomen Type of Debridement: Excisional debridement Anesthesia Used: 4% Lidocaine Solution Depth: Down to and including healthy tissue and in the subcutaneous layer Percentage of wound debrided: 100 Instrument Used: 5mm curette Tissue Removed: Slough and devitalized tissue Severity: Fat Layer Exposed Amount of bleeding with debridement: Mild Bleeding Controlled with: Pressure Patient tolerated procedure: Patient tolerated procedure well Post-Debridement Measurements and Additional Note: Post-Debridement Measurements/Treatment WC - Nurse 1 - General Ulcer Assessment Start: 08/12/21 09:54 Freq: Status: Active Protocol: KANG Activity Type Activity Date Activity User E-Sign Co-Sign Detail Recorded Client Recorded Date Recorded By Document 08/12/21 11:52 DL [id number] 08/12/21 11:57 DL Document 08/19/21 09:31 DL [id number] 08/19/21 09:49 DL 08/12/21 08/19/21 11:52 09:31 WC - Today's Visit Information Type of service Follow-up Visit Follow-up Visit (Physician/BIOFUELS OPERATIONS MANAGER (Physician/BIOFUELS OPERATIONS MANAGER ) ) Arrival Mode Ambulatory Ambulatory Transfer Assistance None None Patient Identification Verified (Name & Yes Yes ) Patient Requires Transmission-Based No No Precautions Height and Weight Body Mass Index (BMI) 28.4 28.4 BMI Classification Overweight Overweight Vital Signs Temperature (97.8 F-99.1 F) 97.1 F L 97.6 F L Temperature Source Temporal Temporal Pulse Rate (60-100) 70 81 Pulse Location Monitor Apical Respiratory Rate (12-18) 18 20 H Respiratory rate source Observation Observation Blood Pressure (90/60-120/80) 149/94 H 135/70 H Blood Pressure Mean (mm Hg) 112 91 Source Monitor Monitor History Since Last Visit- (Skip if this is Patient's initial visit) Have you changed medications since your No No last visit? Any new allergies or adverse reactions No No Had a fall/change in ADL's that may No No increase risk of falls Signs or symptoms of abuse and/or No No neglect since last visit Have you been in the hospital since your No No last visit? Has dressing in place as prescribed Yes Yes Has compression in place as prescribed N/A Has offloadiing in place as prescribed N/A N/A Experienced any changes in pain level or No No management Pain Scale: 0-10 Numeric Is Patient Pain Free? Yes Yes KINGSLEY Renteria Nurse 1 - General Ulcer Measurement Start: 08/12/21 09:54 Freq: Status: Active Protocol: Activity Type Activity Date Activity User E-Sign Co-Sign Detail Recorded Client Recorded Date Recorded By Document 08/12/21 11:52 DL [id number] 08/12/21 11:57 DL Edit Result 08/12/21 11:52 DL (1) [id number] 08/12/21 12:10 DL Document 08/19/21 09:31 DL [id number] 08/19/21 09:49 DL (1) #1 Lower Abd - Current Size (cm) - Length => 0.7 - Current Size (cm) - Width => 8 - Current Size (cm) - Depth => 2.8 - Total Square Cm => 5.6 - Photo Taken => No - Tunneling Position (O'clock) => 3 - Tunneling Distance (cm) => 3.6 - Maximum Distance #2 (cm) => 1.1 - Circular Undermining => Yes - Exudate Amt => Medium - Exudate Type => Serosanguineous - Wound Margin => Distinct, Outline => Attached - Granulation Amt => None Present (0%) - Necrosis Amt => Large (67-100%) - Necrotic Tissue Type => Adherent Slough - Texture (Anca-wound Skin Appearance) => Scarring - Moisture (Anca-wound Skin Appearance) => No Abnormality - Color (Anca-wound Skin Appearance) => No Abnormality - Temperature (Anca-wound Skin => No Abnormality (Pt Appearance) => Warm) - Tenderness on Palpation (Anca-wound => No Skin Appearance) - Ulcer Cleansing => Soap and Water - Foul Odor after Cleansing => No - Anesthetic Used => 4% Lidocaine => Solution 08/12/21 08/19/21 11:52 09:31 Wound Center Nurse 1 #7 left lower ABD -Current Size (cm) - Length 6 -Current Size (cm) - Width 2 -Current Size (cm) - Depth 2.8 -Total Square Cm 12 -Photo Taken No -Exudate Amt Large -Exudate Type Yellow/Green -Wound Margin Distinct, Outline Attached -Granulation Amt Small (1-33%) -Granulation Quality [place] -Necrosis Amt Large (67-100%) -Necrotic Tissue Type Adherent Slough -Structure Exposed N/A -Texture (Anca-wound Skin Appearance) Scarring -Moisture (Anca-wound Skin Appearance) No Abnormality -Color (Anca-wound Skin Appearance) No Abnormality -Temperature (Acna-wound Skin No Abnormality Appearance) (Pt Warm) -Tenderness on Palpation (Anca-wound No Skin Appearance) -Ulcer Cleansing Soap and Water -Foul Odor after Cleansing No -Anesthetic Used 4% Lidocaine Solution #6 right lower ABD -Current Size (cm) - Length 0.4 -Current Size (cm) - Width 3 -Current Size (cm) - Depth 0.1 -Total Square Cm 1.2 -Photo Taken No -Exudate Amt None Present -Wound Margin Thickened -Granulation Amt None Present (0 %) -Necrosis Amt Large (67-100%) -Necrotic Tissue Type Eschar -Structure Exposed N/A -Texture (Anca-wound Skin Appearance) Scarring -Moisture (Anca-wound Skin Appearance) No Abnormality -Color (Anca-wound Skin Appearance) No Abnormality -Temperature (Anac-wound Skin No Abnormality Appearance) (Pt Warm) -Tenderness on Palpation (Anca-wound No Skin Appearance) -Ulcer Cleansing Soap and Water -Foul Odor after Cleansing No -Anesthetic Used 4% Lidocaine Solution #5 RIGHT BREAST -Current Size (cm) - Length 0.7 0.5 -Current Size (cm) - Width 0.6 0.7 -Current Size (cm) - Depth 0.1 0.1 -Total Square Cm 0.42 0.35 -Photo Taken No No -Exudate Amt None Present Small -Exudate Type Serosanguineous -Wound Margin Distinct, Distinct, Outline Outline Attached Attached -Granulation Amt Small (1-33%) Large (67-100%) -Granulation Quality [place] -Necrosis Amt Small (1-33%) None Present (0 %) -Necrotic Tissue Type Adherent Slough -Structure Exposed N/A N/A -Texture (Anca-wound Skin Appearance) Scarring Scarring -Moisture (Anca-wound Skin Appearance) No Abnormality No Abnormality -Color (Anca-wound Skin Appearance) No Abnormality No Abnormality -Temperature (Anca-wound Skin No Abnormality No Abnormality Appearance) (Pt Warm) (Pt Warm) -Tenderness on Palpation (Anca-wound No Skin Appearance) -Ulcer Cleansing Soap and Water Soap and Water -Foul Odor after Cleansing No No -Anesthetic Used 4% Lidocaine 5% Lidocaine Solution Gel #4 Lower Mid Back -Current Size (cm) - Length 0.6 0.1 -Current Size (cm) - Width 0.4 0.1 -Current Size (cm) - Depth 0.1 0.1 -Total Square Cm 0.24 0.01 -Photo Taken No No -Exudate Amt None Present None Present -Wound Margin Thickened -Granulation Amt None Present (0 Small (1-33%) %) -Granulation Quality [place] -Necrosis Amt Large (67-100%) Small (1-33%) -Necrotic Tissue Type Adherent Slough Eschar -Structure Exposed N/A N/A -Texture (Anca-wound Skin Appearance) Scarring Scarring -Moisture (Anca-wound Skin Appearance) No Abnormality Dry/Scaly -Color (Anca-wound Skin Appearance) No Abnormality No Abnormality -Temperature (Anca-wound Skin No Abnormality Appearance) (Pt Warm) -Tenderness on Palpation (Anca-wound No No Skin Appearance) -Ulcer Cleansing Soap and Water Soap and Water -Foul Odor after Cleansing No -Anesthetic Used 5% Lidocaine 5% Lidocaine Gel Gel #3 Upper Mid Back -Current Size (cm) - Length 1.1 0.4 -Current Size (cm) - Width 0.5 0.2 -Current Size (cm) - Depth 0.1 0.1 -Total Square Cm 0.55 0.08 -Photo Taken No No -Exudate Amt Small None Present -Exudate Type Serosanguineous -Wound Margin Distinct, Thickened Outline Attached -Granulation Amt Small (1-33%) Small (1-33%) -Granulation Quality Red [place] -Necrosis Amt Small (1-33%) Small (1-33%) -Necrotic Tissue Type Adherent Slough Adherent Slough -Structure Exposed N/A -Texture (Anca-wound Skin Appearance) Scarring Scarring -Moisture (Anca-wound Skin Appearance) No Abnormality Dry/Scaly -Color (Anca-wound Skin Appearance) No Abnormality No Abnormality -Temperature (Anca-wound Skin No Abnormality No Abnormality Appearance) (Pt Warm) (Pt Warm) -Tenderness on Palpation (Anca-wound No No Skin Appearance) -Ulcer Cleansing Soap and Water Soap and Water -Foul Odor after Cleansing No No -Anesthetic Used 5% Lidocaine 5% Lidocaine Gel Gel #2 Mid abd/Bellybutton -Current Size (cm) - Length 0.8 1.2 -Current Size (cm) - Width 0.6 0.7 -Current Size (cm) - Depth 1 0.7 -Total Square Cm 0.48 0.84 -Photo Taken No No -Tunneling Position (O'clock) 7 6 -Tunneling Distance (cm) 2.5 2.4 -Maximum Distance #2 (cm) 0.3 -Circular Undermining Yes -Exudate Amt Small Medium -Exudate Type Serosanguineous Serosanguineous -Wound Margin Distinct, Distinct, Outline Outline Attached Attached -Granulation Amt Medium (34-66%) Large (67-100%) -Granulation Quality Pale,[place] -Necrosis Amt Medium (34-66%) None Present (0 %) -Necrotic Tissue Type Adherent Slough -Structure Exposed N/A N/A -Texture (Anca-wound Skin Appearance) Scarring Scarring -Moisture (Anca-wound Skin Appearance) No Abnormality No Abnormality -Color (Anca-wound Skin Appearance) No Abnormality No Abnormality -Temperature (Anca-wound Skin No Abnormality Appearance) (Pt Warm) -Tenderness on Palpation (Anca-wound No No Skin Appearance) -Ulcer Cleansing Soap and Water Soap and Water -Foul Odor after Cleansing No No -Anesthetic Used 4% Lidocaine 4% Lidocaine Solution Solution #1 Lower Abd -Current Size (cm) - Length 0.7 -Current Size (cm) - Width 8 -Current Size (cm) - Depth 2.8 -Total Square Cm 5.6 -Photo Taken No -Tunneling Position (O'clock) 3 -Tunneling Distance (cm) 3.6 -Maximum Distance #2 (cm) 1.1 -Circular Undermining Yes -Exudate Amt Medium -Exudate Type Serosanguineous -Wound Margin Distinct, Outline Attached -Granulation Amt None Present (0 %) -Necrosis Amt Large (67-100%) -Necrotic Tissue Type Adherent Slough -Texture (Anca-wound Skin Appearance) Scarring -Moisture (Anca-wound Skin Appearance) No Abnormality -Color (Anca-wound Skin Appearance) No Abnormality -Temperature (Anca-wound Skin No Abnormality Appearance) (Pt Warm) -Tenderness on Palpation (Anca-wound No Skin Appearance) -Ulcer Cleansing Soap and Water -Foul Odor after Cleansing No -Anesthetic Used 4% Lidocaine Solution WC - Nurse 2 - General Ulcer CM Notes Start: 08/12/21 09:54 Freq: Status: Active Protocol: Activity Type Activity Date Activity User E-Sign Co-Sign Detail Recorded Client Recorded Date Recorded By Document 08/12/21 09:55 MW [id number] 08/12/21 16:38 MW Document 08/19/21 10:02 MW [id number] 08/19/21 10:17 MW 08/12/21 08/19/21 09:55 10:02 Wound Center Nurse 2 #7 left lower ABD -Time 09:55 10:05 -Correct Patient Yes Yes -Correct Side, Site, Position Yes Yes -Correct Procedure Yes Yes -Procedure Performed Yes Yes -Type of Procedure Debridement Debridement -Clinical Debridement Subcutaneous Subcutaneous -Tissue Removed Subcutaneous Subcutaneous -Post Debridement (cm) - Length 1.0 0.8 -Post Debridement (cm) - Width 3.0 2.5 -Post Debridement (cm) - Depth 3.1 2.7 -Total Square (Post) (cm) 3.00 2.00 -Area of Debridement (cm) - Length 1.0 0.8 -Area of Debridement (cm) - Width 3.0 2.5 -Total Square (Area) (cm) 3.00 2.00 -Tunneling No Yes -Tunneling Position (O'clock) 9 -Tunneling Distance (cm) 8.0 -Tunneling Position #2 (O'clock) 3 -Tunneling Distance #2 (cm) 3.0 -Undermining/Tunneling No No -Circular Undermining No No -Wound/Ulcer Outcome Not Healed Not Healed -Ulcer Cleansing Rinsed/ Rinsed/ Irrigated with Irrigated with Saline Saline -Foul Odor after Cleansing No No -Bioengineered Tissue No No -Bleeding Controlled with Pressure Pressure -Offloading No No -Treatment Response Procedure Procedure Tolerated Well Tolerated Well -Debridement - Subq, 1st 20sq cm No Yes #6 right lower ABD -Time 09: 10:05 -Correct Patient Yes Yes -Correct Side, Site, Position Yes Yes -Correct Procedure Yes Yes -Procedure Performed Yes Yes -Type of Procedure Debridement Debridement -Clinical Debridement Subcutaneous Subcutaneous -Tissue Removed Subcutaneous Subcutaneous -Post Debridement (cm) - Length 0.4 0.3 -Post Debridement (cm) - Width 3.6 3.4 -Post Debridement (cm) - Depth 0.1 0.1 -Total Square (Post) (cm) 1.44 1.02 -Area of Debridement (cm) - Length 0.4 0.3 -Area of Debridement (cm) - Width 3.6 3.4 -Total Square (Area) (cm) 1.44 1.02 -Tunneling No No -Undermining/Tunneling No No -Circular Undermining No No -Wound/Ulcer Outcome Not Healed Not Healed -Ulcer Cleansing Rinsed/ Rinsed/ Irrigated with Irrigated with Saline Saline -Foul Odor after Cleansing No No -Bioengineered Tissue No No -Bleeding Controlled with Pressure Pressure -Offloading No No -Treatment Response Procedure Procedure Tolerated Well Tolerated Well -Debridement - Subq, 1st 20sq cm No No #5 RIGHT BREAST -Time 09:55 10:11 -Correct Patient Yes Yes -Correct Side, Site, Position Yes Yes -Correct Procedure Yes Yes -Procedure Performed Yes Yes -Type of Procedure Debridement Debridement -Clinical Debridement Subcutaneous Subcutaneous -Tissue Removed Subcutaneous Subcutaneous -Post Debridement (cm) - Length 0.7 0.4 -Post Debridement (cm) - Width 1.2 1.0 -Post Debridement (cm) - Depth 0.1 0.1 -Total Square (Post) (cm) 0.84 0.40 -Area of Debridement (cm) - Length 0.7 0.4 -Area of Debridement (cm) - Width 1.2 1.0 -Total Square (Area) (cm) 0.84 0.40 -Tunneling No No -Undermining/Tunneling No No -Circular Undermining No No -Wound/Ulcer Outcome Not Healed Not Healed -Ulcer Cleansing Rinsed/ Rinsed/ Irrigated with Irrigated with Saline Saline -Foul Odor after Cleansing No No -Bioengineered Tissue No No -Bleeding Controlled with Pressure Pressure -Offloading No No -Treatment Response Procedure Procedure Tolerated Well Tolerated Well -Debridement - Subq, 1st 20sq cm Yes No #4 Lower Mid Back -Time 09:55 10:11 -Correct Patient Yes Yes -Correct Side, Site, Position Yes Yes -Correct Procedure Yes Yes -Procedure Performed Yes Yes -Type of Procedure Debridement Debridement -Clinical Debridement Subcutaneous Subcutaneous -Tissue Removed Subcutaneous Subcutaneous -Post Debridement (cm) - Length 1.5 0.1 -Post Debridement (cm) - Width 0.7 0.1 -Post Debridement (cm) - Depth 0.1 0.1 -Total Square (Post) (cm) 1.05 0.01 -Area of Debridement (cm) - Length 1.5 0.1 -Area of Debridement (cm) - Width 0.7 0.1 -Total Square (Area) (cm) 1.05 0.01 -Tunneling No No -Undermining/Tunneling No No -Circular Undermining No No -Wound/Ulcer Outcome Not Healed Not Healed -Ulcer Cleansing Rinsed/ Rinsed/ Irrigated with Irrigated with Saline Saline -Foul Odor after Cleansing No No -Bioengineered Tissue No No -Bleeding Controlled with Pressure Pressure -Offloading No No -Treatment Response Procedure Procedure Tolerated Well Tolerated Well -Debridement - Subq, 1st 20sq cm No No #3 Upper Mid Back -Time 09:55 10:11 -Correct Patient Yes Yes -Correct Side, Site, Position Yes Yes -Correct Procedure Yes Yes -Procedure Performed Yes Yes -Type of Procedure Debridement Debridement -Clinical Debridement Subcutaneous Subcutaneous -Tissue Removed Subcutaneous Subcutaneous -Post Debridement (cm) - Length 0.8 0.9 -Post Debridement (cm) - Width 0.2 0.2 -Post Debridement (cm) - Depth 0.2 0.1 -Total Square (Post) (cm) 0.16 0.18 -Area of Debridement (cm) - Length 0.8 0.9 -Area of Debridement (cm) - Width 0.2 0.2 -Total Square (Area) (cm) 0.16 0.18 -Tunneling No No -Undermining/Tunneling No No -Circular Undermining No No -Wound/Ulcer Outcome Not Healed Not Healed -Ulcer Cleansing Rinsed/ Rinsed/ Irrigated with Irrigated with Saline Saline -Foul Odor after Cleansing No No -Bioengineered Tissue No No -Bleeding Controlled with Pressure Pressure -Offloading No No -Treatment Response Procedure Procedure Tolerated Well Tolerated Well -Debridement - Subq, 1st 20sq cm No No #2 Mid abd/Bellybutton -Time 09:55 10:12 -Correct Patient Yes Yes -Correct Side, Site, Position Yes Yes -Correct Procedure Yes Yes -Procedure Performed Yes Yes -Type of Procedure Debridement Debridement -Clinical Debridement Subcutaneous Subcutaneous -Tissue Removed Subcutaneous Subcutaneous -Post Debridement (cm) - Length 2.4 0.1 -Post Debridement (cm) - Width 0.1 0.1 -Post Debridement (cm) - Depth 1.7 0.1 -Total Square (Post) (cm) 0.24 0.01 -Area of Debridement (cm) - Length 2.4 0.1 -Area of Debridement (cm) - Width 0.1 0.1 -Total Square (Area) (cm) 0.24 0.01 -Tunneling No Yes -Tunneling Position (O'clock) 6 -Tunneling Distance (cm) 3.5 -Undermining/Tunneling No No -Circular Undermining No No -Wound/Ulcer Outcome Not Healed Not Healed -Ulcer Cleansing Rinsed/ Rinsed/ Irrigated with Irrigated with Saline Saline -Foul Odor after Cleansing No No -Bioengineered Tissue No No -Bleeding Controlled with Pressure Pressure -Offloading No No -Treatment Response Procedure Procedure Tolerated Well Tolerated Well -Debridement - Subq, 1st 20sq cm No No #1 Lower Abd -Time 09:55 -Correct Patient Yes -Correct Side, Site, Position Yes -Correct Procedure Yes -Procedure Performed No -Wound/Ulcer Outcome Converted Pain Scale: 0-10 Numeric Is Patient Pain Free? Yes Yes WC - Nurse 3 - General Ulcer D/C NN Start: 08/12/21 09:54 Freq: Status: Active Protocol: Activity Type Activity Date Activity User E-Sign Co-Sign Detail Recorded Client Recorded Date Recorded By Document 08/19/21 12:00 DL [id number] 08/19/21 12:04 DL 08/19/21 12:00 Wound Care Nurse 3 #7 left lower ABD -Ulcer Cleansing Soap and Water -Foul Odor after Cleansing No -Negative Pressure Wound Therapy Continue -Setting (mmHg) 150 -Negative Pressure is Continuous -NPWT Application Charge NPWT </= 50 sq cm ($) #6 right lower ABD -Ulcer Cleansing Soap and Water -Foul Odor after Cleansing No -Primary Dressing Applied Promogran -Primary Dressing Covered/Secured with Dry Gauze, Secured with Tape -Promogran 1 #5 RIGHT BREAST -Ulcer Cleansing Soap and Water -Foul Odor after Cleansing No -Primary Dressing Applied NonAdherent Contact Layer -Other Dressing promogran -Primary Dressing Covered/Secured with Dry Gauze, Secured with Tape #4 Lower Mid Back -Ulcer Cleansing Soap and Water -Foul Odor after Cleansing No -Other Dressing promogran -Primary Dressing Covered/Secured with Dry Gauze, Secured with Tape #3 Upper Mid Back -Ulcer Cleansing Not Cleansed -Foul Odor after Cleansing No -Other Dressing promogran -Primary Dressing Covered/Secured with Dry Gauze, Secured with Tape #2 Mid abd/Bellybutton -Ulcer Cleansing Soap and Water -Foul Odor after Cleansing No -Negative Pressure Wound Therapy Continue -Setting (mmHg) 150 -Negative Pressure is Continuous -NPWT Application Charge NPWT </= 50 sq cm ($) Treatment Response Procedure Tolerated Well Pain Scale: 0-10 Numeric Is Patient Pain Free? Yes WC - Visit Discharge Discharge Condition Stable Ambulatory Status Ambulatory Transportation Private Auto Accompanied by family Facility Type Home Health Orders Sent Yes Additional Wound Wound debrided: Right lower abdomen Type of Debridement: Excisional debridement Anesthesia Used: 4% Lidocaine Solution Depth: Down to and including healthy tissue and in the subcutaneous layer Percentage of wound debrided: 100 Instrument Used: 3mm curette Tissue Removed: Slough and devitalized tissue Severity: Fat Layer Exposed Amount of bleeding with debridement: Mild Bleeding Controlled with: Pressure Patient tolerated procedure: Patient tolerated procedure well Additional Wound Wound debrided: Upper back Type of Debridement: Excisional debridement Anesthesia Used: 4% Lidocaine Solution Depth: Down to and including healthy tissue and in the subcutaneous layer Percentage of wound debrided: 100 Instrument Used: 3mm curette Tissue Removed: Slough and devitalized tissue Severity: Fat Layer Exposed Amount of bleeding with debridement: Mild Bleeding Controlled with: Pressure Patient tolerated procedure: Patient tolerated procedure well Additional Wound Wound debrided: Right breast Laterality: Left Type of Debridement: Excisional debridement Anesthesia Used: 4% Lidocaine Solution Depth: Down to and including healthy tissue and in the subcutaneous layer Instrument Used: 3mm curette Tissue Removed: Slough and devitalized tissue Severity: Fat Layer Exposed Amount of bleeding with debridement: Mild Bleeding Controlled with: Pressure Patient tolerated procedure: Patient tolerated procedure well Additional Wound Wound debrided: Lower back/buttock Type of Debridement: Excisional debridement Anesthesia Used: 4% Lidocaine Solution Depth: Down to and including healthy tissue Percentage of wound debrided: 100 Instrument Used: 3mm curette Tissue Removed: Slough and devitalized tissue Amount of bleeding with debridement: Mild Bleeding Controlled with: Pressure Patient tolerated procedure: Patient tolerated procedure well Assessment/Plan Assessment/Plan (1) Surgical wound breakdown: CODE(S): T81.31XA - Disruption of external operation (surgical) wound, not elsewhere classified, initial encounter QUALIFIERS: Encounter type: initial encounter Qualified Code(s): T81.31XA - Disruption of external operation (surgical) wound, not elsewhere classified, initial encounter (2) Non-healing surgical wound: CODE(S): T81.89XA - Other complications of procedures, not elsewhere classified, initial encounter QUALIFIERS: Encounter type: initial encounter Qualified Code(s): T81.89XA - Other complications of procedures, not elsewhere classified, initial encounter PLAN: Debridement done as documented above, procedure was well-tolerated. Upper back, lower back/buttock and right breast wounds improving. Umbilical area with general improvement however tunnel persists and is actually slightly deeper. Still reports significant drainage from the tunnel and her left lower abdomen. This will impede healing. Just received her wound VAC. Start at 150 mmHg. Change wound VAC on Monday by home health. Unable to come on the weekends. Continue Promogran to the upper back, lower back/buttock area and right breast. Change daily. Increased protein intake, vitamin C and zinc recommended. She voiced understanding. Her questions were answered and she was advised to call with any further questions or concerns. Follow-up in a week. This note was generated with [employer] dictation software. It may contain incorrect words, spelling, and punctuation that were not noted in checking the note before signing.
[2021-08-26 09:33] VITALS: BP 144/88; PULSE 71; RESP 20; TEMP 36.4; BMI 28.4
--- NOTE | 2021-08-26 12:56 | PN.PCM_ITS ---
History of Present Illness Date of Service: 08/26/21 Chief Complaint: Surgical wound break down History of Wound: Ms. Quintero is a 35-year-old who presents to the wound center due to surgical wound breakdown. Had extensive surgery done in June to remove excess skin following weight loss from bariatric surgery. Surgery was done in [place]. Surgery was uneventful and for the most part has done really well post surgery. Had some areas of wound breakdown. Has been applying Medihoney and Aquacel without any significant improvement. Minimal clear with blood tingled drainage. She was referred here by her primary care physician. She denies any history of diabetes mellitus, tobacco or alcohol abuse. Feels well otherwise. Progress of Wound: Upper and lower back wounds and right breast wounds are healed. Wound VAC to left lower abdominal and umbilical wounds. Right lower abdominal wound is healed. Subjective Subjective No acute concerns at this time Objective Data Objective Data Vital Signs: Vital Signs Temp Pulse Resp BP 97.6 F L 71 20 H 144/88 H 08/26/21 09:33 08/26/21 09:33 08/26/21 09:33 08/26/21 09:33 Weight: 160 lb 11.834 oz Body Mass Index (BMI) 28.4 Lab / Micro Data Micro: Microbiology 08/19/21 10:00 Wound Abcess - Abdominal Gram Stain - Final 08/19/21 10:00 Wound Abcess - Abdominal Wound Culture - Final Klebsiella pneumoniae sp pneum 08/19/21 10:00 Wound Abcess - Abdominal Anaerobic Culture - Final Charges/Coding Procedures Integumentary [id number]: [id number] Hollie subq tissue 20 sq cm/< Physical Exam Const alert, oriented x3 and no apparent distress General Appearance: cooperative, comfortable, well kempt and well developed HEENT normocephalic and head/scalp atraumatic Head and Scalp: normal to inspection and normocephalic Eyes EOMs intact bilaterally General Eye: normal appearance of both eyes Neck full ROM General: normal visual inspection Resp normal respiratory effort Effort and Inspection: able to speak in complete sentences Skin Wounds: wounds noted Neuro oriented x3, CN's II-XII intact bilaterally, moves all extremities and no focal motor deficits Psych mental status grossly normal Appearance: grossly normal Attitude: calm Activity / Motor Behavior: appropriate eye contact Speech: normal speech Thought Process: normal thought process Debridement Note Debridement Note Wound debrided: Left lower abdomen Type of Debridement: Excisional debridement Anesthesia Used: 4% Lidocaine Solution Depth: Down to and including healthy tissue and in the subcutaneous layer Percentage of wound debrided: 100 Instrument Used: 5mm curette Tissue Removed: Slough and devitalized tissue Severity: Fat Layer Exposed Amount of bleeding with debridement: Mild Bleeding Controlled with: Pressure Patient tolerated procedure: Patient tolerated procedure well Post-Debridement Measurements and Additional Note: Post-Debridement Measurements/Treatment - Nurse 1 - General Ulcer Assessment Start: 08/12/21 09:54 Freq: Status: Active Protocol: KANG Activity Type Activity Date Activity User E-Sign Co-Sign Detail Recorded Client Recorded Date Recorded By Document 08/12/21 11:52 DL [id number] 08/12/21 11:57 DL Document 08/19/21 09:31 DL [id number] 08/19/21 09:49 DL Document 08/26/21 09:33 DL [id number] 08/26/21 09:55 DL 08/12/21 08/19/21 08/26/21 11:52 09:31 09:33 - Today's Visit Information Type of service Follow-up Visit Follow-up Visit Follow-up Visit (Physician/LADLE LINER (Physician/LADLE LINER (Physician/LADLE LINER ) ) ) Arrival Mode Ambulatory Ambulatory Ambulatory Transfer Assistance None None None Patient Identification Verified (Name & Yes Yes Yes ) Patient Requires Transmission-Based No No No Precautions Height and Weight Body Mass Index (BMI) 28.4 28.4 28.4 BMI Classification Overweight Overweight Overweight Vital Signs Temperature (97.8 F-99.1 F) 97.1 F L 97.6 F L 97.6 F L Temperature Source Temporal Temporal Temporal Pulse Rate (60-100) 70 81 71 Pulse Location Monitor Apical Monitor Respiratory Rate (12-18) 18 20 H 20 H Respiratory rate source Observation Observation Observation Blood Pressure (90/60-120/80) 149/94 H 135/70 H 144/88 H Blood Pressure Mean (mm Hg) 112 91 106 Source Monitor Monitor Monitor History Since Last Visit- (Skip if this is Patient's initial visit) Have you changed medications since your No No No last visit? Any new allergies or adverse reactions No No No Had a fall/change in ADL's that may No No No increase risk of falls Signs or symptoms of abuse and/or No No No neglect since last visit Have you been in the hospital since your No No No last visit? Has dressing in place as prescribed Yes Yes Yes Has compression in place as prescribed N/A N/A Has offloadiing in place as prescribed N/A N/A N/A Experienced any changes in pain level or No No No management Pain Scale: 0-10 Numeric Is Patient Pain Free? Yes Yes Yes WC - Nurse 1 - General Ulcer Measurement Start: 08/12/21 09:54 Freq: Status: Active Protocol: Activity Type Activity Date Activity User E-Sign Co-Sign Detail Recorded Client Recorded Date Recorded By Document 08/12/21 11:52 DL [id number] 08/12/21 11:57 DL Edit Result 08/12/21 11:52 DL (1) [id number] 08/12/21 12:10 DL Document 08/19/21 09:31 DL [id number] 08/19/21 09:49 DL Document 08/26/21 09:33 DL [id number] 08/26/21 09:55 DL (1) #1 Lower Abd - Current Size (cm) - Length => 0.7 - Current Size (cm) - Width => 8 - Current Size (cm) - Depth => 2.8 - Total Square Cm => 5.6 - Photo Taken => No - Tunneling Position (O'clock) => 3 - Tunneling Distance (cm) => 3.6 - Maximum Distance #2 (cm) => 1.1 - Circular Undermining => Yes - Exudate Amt => Medium - Exudate Type => Serosanguineous - Wound Margin => Distinct, Outline => Attached - Granulation Amt => None Present (0%) - Necrosis Amt => Large (67-100%) - Necrotic Tissue Type => Adherent Slough - Texture (Anca-wound Skin Appearance) => Scarring - Moisture (Anca-wound Skin Appearance) => No Abnormality - Color (Anca-wound Skin Appearance) => No Abnormality - Temperature (Anca-wound Skin => No Abnormality (Pt Appearance) => Warm) - Tenderness on Palpation (Anca-wound => No Skin Appearance) - Ulcer Cleansing => Soap and Water - Foul Odor after Cleansing => No - Anesthetic Used => 4% Lidocaine => Solution 08/12/21 08/19/21 08/26/21 11:52 09:31 09:33 Wound Center Nurse 1 #7 left lower ABD -Current Size (cm) - Length 6 0.1 -Current Size (cm) - Width 2 0.1 -Current Size (cm) - Depth 2.8 0.1 -Total Square Cm 12 0.01 -Photo Taken No No -Exudate Amt Large None Present -Exudate Type Yellow/Green -Wound Margin Distinct, Indistinct, Non Outline -Visible Attached -Granulation Amt Small (1-33%) Large (67-100%) -Granulation Quality Cut And Shoot Cut And Shoot -Necrosis Amt Large (67-100%) None Present (0 %) -Necrotic Tissue Type Adherent Slough -Structure Exposed N/A N/A -Texture (Anca-wound Skin Appearance) Scarring Scarring -Moisture (Anca-wound Skin Appearance) No Abnormality No Abnormality -Color (Anca-wound Skin Appearance) No Abnormality No Abnormality -Temperature (Anca-wound Skin No Abnormality No Abnormality Appearance) (Pt Warm) (Pt Warm) -Tenderness on Palpation (Anca-wound No No Skin Appearance) -Ulcer Cleansing Soap and Water Soap and Water -Foul Odor after Cleansing No No -Anesthetic Used 4% Lidocaine Solution #6 right lower ABD -Current Size (cm) - Length 0.4 0.7 -Current Size (cm) - Width 3 2 -Current Size (cm) - Depth 0.1 2.8 -Total Square Cm 1.2 1.4 -Photo Taken No No -Tunneling Yes -Tunneling Position (O'clock) 9 -Tunneling Distance (cm) 9 -Exudate Amt None Present Large -Exudate Type Serosanguineous -Wound Margin Thickened Well Defined, Not Attached -Granulation Amt None Present (0 Medium (34-66%) %) -Granulation Quality Red -Necrosis Amt Large (67-100%) Medium (34-66%) -Necrotic Tissue Type Eschar Adherent Slough -Structure Exposed N/A N/A -Texture (Anca-wound Skin Appearance) Scarring Scarring -Moisture (Anca-wound Skin Appearance) No Abnormality No Abnormality -Color (Anca-wound Skin Appearance) No Abnormality Erythema -Temperature (Anca-wound Skin No Abnormality No Abnormality Appearance) (Pt Warm) (Pt Warm) -Tenderness on Palpation (Anca-wound No No Skin Appearance) -Ulcer Cleansing Soap and Water Soap and Water -Foul Odor after Cleansing No No -Anesthetic Used 4% Lidocaine 4% Lidocaine Solution Solution #5 RIGHT BREAST -Current Size (cm) - Length 0.7 0.5 0.1 -Current Size (cm) - Width 0.6 0.7 0.1 -Current Size (cm) - Depth 0.1 0.1 0.1 -Total Square Cm 0.42 0.35 0.01 -Photo Taken No No No -Exudate Amt None Present Small None Present -Exudate Type Serosanguineous -Wound Margin Distinct, Distinct, Thickened Outline Outline Attached Attached -Granulation Amt Small (1-33%) Large (67-100%) None Present (0 %) -Granulation Quality Red Pale,Cut And Shoot -Necrosis Amt Small (1-33%) None Present (0 Small (1-33%) %) -Necrotic Tissue Type Adherent Slough Adherent Slough -Structure Exposed N/A N/A N/A -Texture (Anca-wound Skin Appearance) Scarring Scarring Scarring -Moisture (Anca-wound Skin Appearance) No Abnormality No Abnormality No Abnormality -Color (Anca-wound Skin Appearance) No Abnormality No Abnormality No Abnormality -Temperature (Anca-wound Skin No Abnormality No Abnormality No Abnormality Appearance) (Pt Warm) (Pt Warm) (Pt Warm) -Tenderness on Palpation (Anca-wound No No Skin Appearance) -Ulcer Cleansing Soap and Water Soap and Water Soap and Water -Foul Odor after Cleansing No No No -Anesthetic Used 4% Lidocaine 5% Lidocaine 4% Lidocaine Solution Gel Solution #4 Lower Mid Back -Current Size (cm) - Length 0.6 0.1 0 -Current Size (cm) - Width 0.4 0.1 0 -Current Size (cm) - Depth 0.1 0.1 0 -Total Square Cm 0.24 0.01 0 -Photo Taken No No Yes -Exudate Amt None Present None Present None Present -Wound Margin Thickened Flat & Intact -Granulation Amt None Present (0 Small (1-33%) Large (67-100%) %) -Granulation Quality Cut And Shoot Cut And Shoot -Necrosis Amt Large (67-100%) Small (1-33%) None Present (0 %) -Necrotic Tissue Type Adherent Slough Eschar -Structure Exposed N/A N/A N/A -Texture (Anca-wound Skin Appearance) Scarring Scarring No Abnormality -Moisture (Anca-wound Skin Appearance) No Abnormality Dry/Scaly No Abnormality -Color (Anca-wound Skin Appearance) No Abnormality No Abnormality No Abnormality -Temperature (Anca-wound Skin No Abnormality No Abnormality Appearance) (Pt Warm) (Pt Warm) -Tenderness on Palpation (Anca-wound No No No Skin Appearance) -Ulcer Cleansing Soap and Water Soap and Water Soap and Water -Foul Odor after Cleansing No No -Anesthetic Used 5% Lidocaine 5% Lidocaine Gel Gel #3 Upper Mid Back -Current Size (cm) - Length 1.1 0.4 0 -Current Size (cm) - Width 0.5 0.2 0 -Current Size (cm) - Depth 0.1 0.1 0 -Total Square Cm 0.55 0.08 0 -Photo Taken No No Yes -Exudate Amt Small None Present None Present -Exudate Type Serosanguineous -Wound Margin Distinct, Thickened Flat & Intact Outline Attached -Granulation Amt Small (1-33%) Small (1-33%) Large (67-100%) -Granulation Quality Red Cut And Shoot Cut And Shoot -Necrosis Amt Small (1-33%) Small (1-33%) None Present (0 %) -Necrotic Tissue Type Adherent Slough Adherent Slough -Structure Exposed N/A N/A -Texture (Anca-wound Skin Appearance) Scarring Scarring No Abnormality -Moisture (Anca-wound Skin Appearance) No Abnormality Dry/Scaly No Abnormality -Color (Anca-wound Skin Appearance) No Abnormality No Abnormality -Temperature (Anca-wound Skin No Abnormality No Abnormality No Abnormality Appearance) (Pt Warm) (Pt Warm) (Pt Warm) -Tenderness on Palpation (Anca-wound No No No Skin Appearance) -Ulcer Cleansing Soap and Water Soap and Water Soap and Water -Foul Odor after Cleansing No No No -Anesthetic Used 5% Lidocaine 5% Lidocaine Gel Gel #2 Mid abd/Bellybutton -Current Size (cm) - Length 0.8 1.2 0.8 -Current Size (cm) - Width 0.6 0.7 0.4 -Current Size (cm) - Depth 1 0.7 0.5 -Total Square Cm 0.48 0.84 0.32 -Photo Taken No No No -Tunneling Position (O'clock) 7 6 -Tunneling Distance (cm) 2.5 2.4 -Maximum Distance #2 (cm) 0.3 0.4 -Circular Undermining Yes Yes -Exudate Amt Small Medium Medium -Exudate Type Serosanguineous Serosanguineous Serosanguineous -Wound Margin Distinct, Distinct, Distinct, Outline Outline Outline Attached Attached Attached -Granulation Amt Medium (34-66%) Large (67-100%) Large (67-100%) -Granulation Quality Pale,Cut And Shoot Pale,Cut And Shoot Pale,Cut And Shoot -Necrosis Amt Medium (34-66%) None Present (0 Small (1-33%) %) -Necrotic Tissue Type Adherent Slough Adherent Slough -Structure Exposed N/A N/A -Texture (Anca-wound Skin Appearance) Scarring Scarring Scarring,Rash -Moisture (Anca-wound Skin Appearance) No Abnormality No Abnormality -Color (Anca-wound Skin Appearance) No Abnormality No Abnormality Erythema -Temperature (Anca-wound Skin No Abnormality No Abnormality Appearance) (Pt Warm) (Pt Warm) -Tenderness on Palpation (Anca-wound No No Skin Appearance) -Ulcer Cleansing Soap and Water Soap and Water Soap and Water -Foul Odor after Cleansing No No No -Anesthetic Used 4% Lidocaine 4% Lidocaine 4% Lidocaine Solution Solution Solution #1 Lower Abd -Current Size (cm) - Length 0.7 -Current Size (cm) - Width 8 -Current Size (cm) - Depth 2.8 -Total Square Cm 5.6 -Photo Taken No -Tunneling Position (O'clock) 3 -Tunneling Distance (cm) 3.6 -Maximum Distance #2 (cm) 1.1 -Circular Undermining Yes -Exudate Amt Medium -Exudate Type Serosanguineous -Wound Margin Distinct, Outline Attached -Granulation Amt None Present (0 %) -Necrosis Amt Large (67-100%) -Necrotic Tissue Type Adherent Slough -Texture (Anca-wound Skin Appearance) Scarring -Moisture (Anca-wound Skin Appearance) No Abnormality -Color (Anca-wound Skin Appearance) No Abnormality -Temperature (Anca-wound Skin No Abnormality Appearance) (Pt Warm) -Tenderness on Palpation (Anca-wound No Skin Appearance) -Ulcer Cleansing Soap and Water -Foul Odor after Cleansing No -Anesthetic Used 4% Lidocaine Solution WC - Nurse 2 - General Ulcer CM Notes Start: 08/12/21 09:54 Freq: Status: Active Protocol: Activity Type Activity Date Activity User E-Sign Co-Sign Detail Recorded Client Recorded Date Recorded By Document 08/12/21 09:55 MW [id number] 08/12/21 16:38 MW Document 08/19/21 10:02 MW [id number] 08/19/21 10:17 MW Document 08/26/21 10:10 MW [id number] 08/26/21 10:25 MW 08/12/21 08/19/21 08/26/21 09:55 10:02 10:10 Wound Center Nurse 2 #7 left lower ABD -Time 09:55 10:05 10:11 -Correct Patient Yes Yes Yes -Correct Side, Site, Position Yes Yes Yes -Correct Procedure Yes Yes Yes -Procedure Performed Yes Yes Yes -Type of Procedure Debridement Debridement Debridement -Clinical Debridement Subcutaneous Subcutaneous Subcutaneous -Tissue Removed Subcutaneous Subcutaneous Subcutaneous -Post Debridement (cm) - Length 1.0 0.8 0.8 -Post Debridement (cm) - Width 3.0 2.5 2.4 -Post Debridement (cm) - Depth 3.1 2.7 2.7 -Total Square (Post) (cm) 3.00 2.00 1.92 -Area of Debridement (cm) - Length 1.0 0.8 0.8 -Area of Debridement (cm) - Width 3.0 2.5 2.4 -Total Square (Area) (cm) 3.00 2.00 1.92 -Tunneling No Yes Yes -Tunneling Position (O'clock) 9 3 -Tunneling Distance (cm) 8.0 4.5 -Tunneling Position #2 (O'clock) 3 9 -Tunneling Distance #2 (cm) 3.0 8.3 -Undermining/Tunneling No No No -Circular Undermining No No No -Wound/Ulcer Outcome Not Healed Not Healed Not Healed -Ulcer Cleansing Rinsed/ Rinsed/ Rinsed/ Irrigated with Irrigated with Irrigated with Saline Saline Saline -Foul Odor after Cleansing No No No -Bioengineered Tissue No No No -Bleeding Controlled with Pressure Pressure Pressure -Treatment Response Procedure Procedure Procedure Tolerated Well Tolerated Well Tolerated Well -Offloading No No No -Debridement - Subq, 1st 20sq cm No Yes Yes #6 right lower ABD -Time 09:55 10:05 10:11 -Correct Patient Yes Yes Yes -Correct Side, Site, Position Yes Yes Yes -Correct Procedure Yes Yes Yes -Procedure Performed Yes Yes No -Type of Procedure Debridement Debridement -Clinical Debridement Subcutaneous Subcutaneous -Tissue Removed Subcutaneous Subcutaneous -Post Debridement (cm) - Length 0.4 0.3 0 -Post Debridement (cm) - Width 3.6 3.4 0 -Post Debridement (cm) - Depth 0.1 0.1 0 -Total Square (Post) (cm) 1.44 1.02 0 -Area of Debridement (cm) - Length 0.4 0.3 -Area of Debridement (cm) - Width 3.6 3.4 -Total Square (Area) (cm) 1.44 1.02 -Tunneling No No -Undermining/Tunneling No No -Circular Undermining No No -Wound/Ulcer Outcome Not Healed Not Healed Healed- Epithelialized -Ulcer Cleansing Rinsed/ Rinsed/ Irrigated with Irrigated with Saline Saline -Foul Odor after Cleansing No No -Bioengineered Tissue No No -Bleeding Controlled with Pressure Pressure -Treatment Response Procedure Procedure Tolerated Well Tolerated Well -Offloading No No -Debridement - Subq, 1st 20sq cm No No #5 RIGHT BREAST -Time 09:55 10:11 10:17 -Correct Patient Yes Yes Yes -Correct Side, Site, Position Yes Yes Yes -Correct Procedure Yes Yes Yes -Procedure Performed Yes Yes No -Type of Procedure Debridement Debridement -Clinical Debridement Subcutaneous Subcutaneous -Tissue Removed Subcutaneous Subcutaneous -Post Debridement (cm) - Length 0.7 0.4 0 -Post Debridement (cm) - Width 1.2 1.0 0 -Post Debridement (cm) - Depth 0.1 0.1 0 -Total Square (Post) (cm) 0.84 0.40 0 -Area of Debridement (cm) - Length 0.7 0.4 -Area of Debridement (cm) - Width 1.2 1.0 -Total Square (Area) (cm) 0.84 0.40 -Tunneling No No No -Undermining/Tunneling No No No -Circular Undermining No No No -Wound/Ulcer Outcome Not Healed Not Healed Healed- Epithelialized -Ulcer Cleansing Rinsed/ Rinsed/ Irrigated with Irrigated with Saline Saline -Foul Odor after Cleansing No No -Bioengineered Tissue No No -Bleeding Controlled with Pressure Pressure -Treatment Response Procedure Procedure Tolerated Well Tolerated Well -Offloading No No -Debridement - Subq, 1st 20sq cm Yes No #4 Lower Mid Back -Time : 10:11 10:19 -Correct Patient Yes Yes Yes -Correct Side, Site, Position Yes Yes Yes -Correct Procedure Yes Yes Yes -Procedure Performed Yes Yes No -Type of Procedure Debridement Debridement -Clinical Debridement Subcutaneous Subcutaneous -Tissue Removed Subcutaneous Subcutaneous -Post Debridement (cm) - Length 1.5 0.1 0 -Post Debridement (cm) - Width 0.7 0.1 0 -Post Debridement (cm) - Depth 0.1 0.1 0 -Total Square (Post) (cm) 1.05 0.01 0 -Area of Debridement (cm) - Length 1.5 0.1 -Area of Debridement (cm) - Width 0.7 0.1 -Total Square (Area) (cm) 1.05 0.01 -Tunneling No No -Undermining/Tunneling No No -Circular Undermining No No -Wound/Ulcer Outcome Not Healed Not Healed Healed- Epithelialized -Ulcer Cleansing Rinsed/ Rinsed/ Irrigated with Irrigated with Saline Saline -Foul Odor after Cleansing No No -Bioengineered Tissue No No -Bleeding Controlled with Pressure Pressure -Treatment Response Procedure Procedure Tolerated Well Tolerated Well -Offloading No No -Debridement - Subq, 1st 20sq cm No No #3 Upper Mid Back -Time 10:11 10:19 -Correct Patient Yes Yes Yes -Correct Side, Site, Position Yes Yes Yes -Correct Procedure Yes Yes Yes -Procedure Performed Yes Yes No -Type of Procedure Debridement Debridement -Clinical Debridement Subcutaneous Subcutaneous -Tissue Removed Subcutaneous Subcutaneous -Post Debridement (cm) - Length 0.8 0.9 0 -Post Debridement (cm) - Width 0.2 0.2 0 -Post Debridement (cm) - Depth 0.2 0.1 0 -Total Square (Post) (cm) 0.16 0.18 0 -Area of Debridement (cm) - Length 0.8 0.9 -Area of Debridement (cm) - Width 0.2 0.2 -Total Square (Area) (cm) 0.16 0.18 -Tunneling No No -Undermining/Tunneling No No -Circular Undermining No No -Wound/Ulcer Outcome Not Healed Not Healed Healed- Epithelialized -Ulcer Cleansing Rinsed/ Rinsed/ Irrigated with Irrigated with Saline Saline -Foul Odor after Cleansing No No -Bioengineered Tissue No No -Bleeding Controlled with Pressure Pressure -Treatment Response Procedure Procedure Tolerated Well Tolerated Well -Offloading No No -Debridement - Subq, 1st 20sq cm No No #2 Mid abd/Bellybutton -Time 09:55 10:12 10:20 -Correct Patient Yes Yes Yes -Correct Side, Site, Position Yes Yes Yes -Correct Procedure Yes Yes Yes -Procedure Performed Yes Yes Yes -Type of Procedure Debridement Debridement Debridement -Clinical Debridement Subcutaneous Subcutaneous Subcutaneous -Tissue Removed Subcutaneous Subcutaneous Subcutaneous -Post Debridement (cm) - Length 2.4 0.1 0.1 -Post Debridement (cm) - Width 0.1 0.1 0.1 -Post Debridement (cm) - Depth 1.7 0.1 0.1 -Total Square (Post) (cm) 0.24 0.01 0.01 -Area of Debridement (cm) - Length 2.4 0.1 0.1 -Area of Debridement (cm) - Width 0.1 0.1 0.1 -Total Square (Area) (cm) 0.24 0.01 0.01 -Tunneling No Yes No -Tunneling Position (O'clock) 6 -Tunneling Distance (cm) 3.5 -Undermining/Tunneling No No No -Circular Undermining No No No -Wound/Ulcer Outcome Not Healed Not Healed Not Healed -Ulcer Cleansing Rinsed/ Rinsed/ Rinsed/ Irrigated with Irrigated with Irrigated with Saline Saline Saline -Foul Odor after Cleansing No No No -Bioengineered Tissue No No No -Bleeding Controlled with Pressure Pressure Pressure -Treatment Response Procedure Procedure Procedure Tolerated Well Tolerated Well Tolerated Well -Offloading No No No -Debridement - Subq, 1st 20sq cm No No No #1 Lower Abd -Time 09:55 -Correct Patient Yes -Correct Side, Site, Position Yes -Correct Procedure Yes -Procedure Performed No -Wound/Ulcer Outcome Converted Pain Scale: 0-10 Numeric Is Patient Pain Free? Yes Yes Yes WC - Nurse 3 - General Ulcer D/C NN Start: 08/12/21 09:54 Freq: Status: Active Protocol: Activity Type Activity Date Activity User E-Sign Co-Sign Detail Recorded Client Recorded Date Recorded By Document 08/19/21 12:00 DL [id number] 08/19/21 12:04 DL Edit Result 08/19/21 12:00 DL (1) [id number] 08/19/21 15:54 PL Document 08/26/21 10:51 BMF [id number] 08/26/21 10:52 BMF (1) #7 left lower ABD - NPWT Application Charge NPWT </= 50 sq cm => NPWT & Debridement ($) => (nc) 08/19/21 08/26/21 12:00 10:51 Wound Care Nurse 3 #7 left lower ABD -Ulcer Cleansing Soap and Water Rinsed/ Irrigated with Saline -Foul Odor after Cleansing No No -Negative Pressure Wound Therapy Continue Continue -Setting (mmHg) 150 150 -Negative Pressure is Continuous Continuous -NPWT Application Charge NPWT & NPWT & Debridement (nc Debridement (nc ) ) #6 right lower ABD -Ulcer Cleansing Soap and Water -Foul Odor after Cleansing No -Primary Dressing Applied Promogran -Primary Dressing Covered/Secured with Dry Gauze, Secured with Tape -Promogran 1 #5 RIGHT BREAST -Ulcer Cleansing Soap and Water -Foul Odor after Cleansing No -Primary Dressing Applied NonAdherent Contact Layer -Other Dressing promogran -Primary Dressing Covered/Secured with Dry Gauze, Secured with Tape #4 Lower Mid Back -Ulcer Cleansing Soap and Water -Foul Odor after Cleansing No -Other Dressing promogran -Primary Dressing Covered/Secured with Dry Gauze, Secured with Tape #3 Upper Mid Back -Ulcer Cleansing Not Cleansed -Foul Odor after Cleansing No -Other Dressing promogran -Primary Dressing Covered/Secured with Dry Gauze, Secured with Tape #2 Mid abd/Bellybutton -Ulcer Cleansing Soap and Water Rinsed/ Irrigated with Saline -Foul Odor after Cleansing No No -Negative Pressure Wound Therapy Continue Continue -Setting (mmHg) 150 150 -Negative Pressure is Continuous Continuous -NPWT Application Charge NPWT </= 50 sq NPWT & cm ($) Debridement (nc ) Treatment Response Procedure Procedure Tolerated Well Tolerated Well Pain Scale: 0-10 Numeric Is Patient Pain Free? Yes Yes WC - Visit Discharge Discharge Condition Stable Stable Ambulatory Status Ambulatory Ambulatory Transportation Private Auto Private Auto Accompanied by family Facility Type Home Health Orders Sent Yes Assessment/Plan Assessment/Plan (1) Surgical wound breakdown: CODE(S): T81.31XA - Disruption of external operation (surgical) wound, not elsewhere classified, initial encounter QUALIFIERS: Encounter type: initial encounter Qualified Code(s): T81.31XA - Disruption of external operation (surgical) wound, not elsewhere classified, initial encounter (2) Non-healing surgical wound: CODE(S): T81.89XA - Other complications of procedures, not elsewhere classified, initial encounter QUALIFIERS: Encounter type: initial encounter Qualified Code(s): T81.89XA - Other complications of procedures, not elsewhere classified, initial encounter PLAN: Other wounds are pretty much healed. Left lower abdominal wound and umbilical area with no significant change. Tolerating wound VAC however had concerns with home care. Had to come in for a change on Monday. Continue wound VAC at 150 mmHg. Come in for a nurse visit on Monday for change. Adaptic and gauze to right breast area. Change daily. Increased protein intake, vitamin C and zinc recommended. She voiced understanding. Her questions were answered and she was advised to call with any further questions or concerns. Follow-up in a week. This note was generated with [employer] dictation software. It may contain incorrect words, spelling, and punctuation that were not noted in checking the note before signing.
[2021-08-30 08:21] VITALS: BP 128/81; PULSE 61; TEMP 36.1; BMI 28.4
[2021-09-02 09:56] VITALS: BP 135/88; PULSE 64; RESP 18; TEMP 36.6; BMI 28.4
--- NOTE | 2021-09-02 12:24 | PN.PCM_ITS ---
History of Present Illness Date of Service: 09/02/21 Chief Complaint: Surgical wound break down History of Wound: Ms. Quintero is a 35-year-old who presents to the wound center due to surgical wound breakdown. Had extensive surgery done in June to remove excess skin following weight loss from bariatric surgery. Surgery was done in [place]. Surgery was uneventful and for the most part has done really well post surgery. Had some areas of wound breakdown. Has been applying Medihoney and Aquacel without any significant improvement. Minimal clear with blood tingled drainage. She was referred here by her primary care physician. She denies any history of diabetes mellitus, tobacco or alcohol abuse. Feels well otherwise. Progress of Wound: Upper and lower back wounds and right breast wounds stay healed. Tolerating wound VAC to lower abdominal wounds. No new concerns. Objective Data Objective Data Vital Signs: Vital Signs Temp Pulse Resp BP 97.8 F 64 18 135/88 H 09/02/21 09:56 09/02/21 09:56 09/02/21 09:56 09/02/21 09:56 Weight: 160 lb 11.834 oz Body Mass Index (BMI) 28.4 Lab / Micro Data Micro: Microbiology 08/19/21 10:00 Wound Abcess - Abdominal Gram Stain - Final 08/19/21 10:00 Wound Abcess - Abdominal Wound Culture - Final Klebsiella pneumoniae sp pneum 08/19/21 10:00 Wound Abcess - Abdominal Anaerobic Culture - Final Charges/Coding Procedures Integumentary [id number]: [id number] Hollie subq tissue 20 sq cm/< Physical Exam Const alert, oriented x3 and no apparent distress General Appearance: cooperative, comfortable, well kempt and well developed HEENT normocephalic and head/scalp atraumatic Head and Scalp: normal to inspection and normocephalic Eyes EOMs intact bilaterally General Eye: normal appearance of both eyes Neck full ROM General: normal visual inspection Resp normal respiratory effort Effort and Inspection: able to speak in complete sentences Skin Wounds: wounds noted Neuro oriented x3, CN's II-XII intact bilaterally, moves all extremities and no focal motor deficits Psych mental status grossly normal Appearance: grossly normal Attitude: calm Activity / Motor Behavior: appropriate eye contact Speech: normal speech Thought Process: normal thought process Debridement Note Debridement Note Wound debrided: Lower abdomen (left-sided) Type of Debridement: Excisional debridement Anesthesia Used: 4% Lidocaine Solution Depth: Down to and including healthy tissue and in the subcutaneous layer Instrument Used: 5mm curette Tissue Removed: Slough and devitalized tissue Severity: Fat Layer Exposed Amount of bleeding with debridement: Mild Bleeding Controlled with: Pressure Patient tolerated procedure: Patient tolerated procedure well Post-Debridement Measurements and Additional Note: Post-Debridement Measurements/Treatment WC - Nurse 1 - General Ulcer Assessment Start: 08/12/21 09:54 Freq: Status: Active Protocol: KANG Activity Type Activity Date Activity User E-Sign Co-Sign Detail Recorded Client Recorded Date Recorded By Document 08/12/21 11:52 DL [id number] 08/12/21 11:57 DL Document 08/19/21 09:31 DL [id number] 08/19/21 09:49 DL Document 08/26/21 09:33 DL [id number] 08/26/21 09:55 DL Document 08/30/21 08:21 KR [id number] 08/30/21 08:24 KR Document 09/02/21 09:56 DL [id number] 09/02/21 10:06 DL 08/12/21 08/19/21 08/26/21 11:52 09:31 09:33 - Today's Visit Information Type of service Follow-up Visit Follow-up Visit Follow-up Visit (Physician/LOAN AND CREDIT MANAGER (Physician/LOAN AND CREDIT MANAGER (Physician/LOAN AND CREDIT MANAGER ) ) ) Arrival Mode Ambulatory Ambulatory Ambulatory Transfer Assistance None None None Patient Identification Verified (Name & Yes Yes Yes ) Patient Requires Transmission-Based No No No Precautions Height and Weight Body Mass Index (BMI) 28.4 28.4 28.4 BMI Classification Overweight Overweight Overweight Vital Signs Temperature (97.8 F-99.1 F) 97.1 F L 97.6 F L 97.6 F L Temperature Source Temporal Temporal Temporal Pulse Rate (60-100) 70 81 71 Pulse Location Monitor Apical Monitor Respiratory Rate (12-18) 18 20 H 20 H Respiratory rate source Observation Observation Observation Blood Pressure (90/60-120/80) 149/94 H 135/70 H 144/88 H Blood Pressure Mean (mm Hg) 112 91 106 Source Monitor Monitor Monitor Position Blood Pressure Location History Since Last Visit- (Skip if this is Patient's initial visit) Have you changed medications since your No No No last visit? Any new allergies or adverse reactions No No No Had a fall/change in ADL's that may No No No increase risk of falls Signs or symptoms of abuse and/or No No No neglect since last visit Have you been in the hospital since your No No No last visit? Has dressing in place as prescribed Yes Yes Yes Has compression in place as prescribed N/A N/A Has offloadiing in place as prescribed N/A N/A N/A Experienced any changes in pain level or No No No management Left Footwear Right Footwear Pain Scale: 0-10 Numeric Is Patient Pain Free? Yes Yes Yes 08/30/21 09/02/21 08:21 09:56 WC - Today's Visit Information Type of service Nurse-only Follow-up Visit Visit (Physician/LOAN AND CREDIT MANAGER ) Arrival Mode Ambulatory Ambulatory Transfer Assistance None Patient Identification Verified (Name & Yes Yes ) Patient Requires Transmission-Based No Precautions Height and Weight Body Mass Index (BMI) 28.4 28.4 BMI Classification Overweight Overweight Vital Signs Temperature (97.8 F-99.1 F) 97.0 F L 97.8 F Temperature Source Temporal Temporal Pulse Rate (60-100) 61 64 Pulse Location Monitor Monitor Respiratory Rate (12-18) 18 Respiratory rate source Observation Blood Pressure (90/60-120/80) 128/81 H 135/88 H Blood Pressure Mean (mm Hg) 96 103 Source Monitor Monitor Position Semi-Fowlers Blood Pressure Location Right Arm History Since Last Visit- (Skip if this is Patient's initial visit) Have you changed medications since your No No last visit? Any new allergies or adverse reactions No No Had a fall/change in ADL's that may No No increase risk of falls Signs or symptoms of abuse and/or No No neglect since last visit Have you been in the hospital since your No No last visit? Has dressing in place as prescribed Yes Yes Has compression in place as prescribed N/A Yes Has offloadiing in place as prescribed N/A N/A Experienced any changes in pain level or No No management Left Footwear Regular Shoe Right Footwear Regular Shoe Pain Scale: 0-10 Numeric Is Patient Pain Free? Yes Yes - Nurse 1 - General Ulcer Measurement Start: 08/12/21 09:54 Freq: Status: Active Protocol: Activity Type Activity Date Activity User E-Sign Co-Sign Detail Recorded Client Recorded Date Recorded By Document 08/12/21 11:52 DL [id number] 08/12/21 11:57 DL Edit Result 08/12/21 11:52 DL (1) [id number] 08/12/21 12:10 DL Document 08/19/21 09:31 DL [id number] 08/19/21 09:49 DL Document 08/26/21 09:33 DL [id number] 08/26/21 09:55 DL Document 09/02/21 09:56 DL [id number] 09/02/21 10:06 DL (1) #1 Lower Abd - Current Size (cm) - Length => 0.7 - Current Size (cm) - Width => 8 - Current Size (cm) - Depth => 2.8 - Total Square Cm => 5.6 - Photo Taken => No - Tunneling Position (O'clock) => 3 - Tunneling Distance (cm) => 3.6 - Maximum Distance #2 (cm) => 1.1 - Circular Undermining => Yes - Exudate Amt => Medium - Exudate Type => Serosanguineous - Wound Margin => Distinct, Outline => Attached - Granulation Amt => None Present (0%) - Necrosis Amt => Large (67-100%) - Necrotic Tissue Type => Adherent Slough - Texture (Anca-wound Skin Appearance) => Scarring - Moisture (Anca-wound Skin Appearance) => No Abnormality - Color (Anca-wound Skin Appearance) => No Abnormality - Temperature (Anca-wound Skin => No Abnormality (Pt Appearance) => Warm) - Tenderness on Palpation (Anca-wound => No Skin Appearance) - Ulcer Cleansing => Soap and Water - Foul Odor after Cleansing => No - Anesthetic Used => 4% Lidocaine => Solution 08/12/21 08/19/21 08/26/21 11:52 09:31 09:33 Wound Center Nurse 1 #7 left lower ABD -Current Size (cm) - Length 6 0.1 -Current Size (cm) - Width 2 0.1 -Current Size (cm) - Depth 2.8 0.1 -Total Square Cm 12 0.01 -Photo Taken No No -Tunneling Position (O'clock) -Tunneling Distance (cm) -Maximum Distance #2 (cm) -Circular Undermining -Exudate Amt Large None Present -Exudate Type Yellow/Green -Wound Margin Distinct, Indistinct, Non Outline -Visible Attached -Granulation Amt Small (1-33%) Large (67-100%) -Granulation Quality [place] -Necrosis Amt Large (67-100%) None Present (0 %) -Necrotic Tissue Type Adherent Slough -Structure Exposed N/A N/A -Texture (Anca-wound Skin Appearance) Scarring Scarring -Moisture (Anca-wound Skin Appearance) No Abnormality No Abnormality -Color (Anca-wound Skin Appearance) No Abnormality No Abnormality -Temperature (Anca-wound Skin No Abnormality No Abnormality Appearance) (Pt Warm) (Pt Warm) -Tenderness on Palpation (Anca-wound No No Skin Appearance) -Ulcer Cleansing Soap and Water Soap and Water -Foul Odor after Cleansing No No -Anesthetic Used 4% Lidocaine Solution #6 right lower ABD -Current Size (cm) - Length 0.4 0.7 -Current Size (cm) - Width 3 2 -Current Size (cm) - Depth 0.1 2.8 -Total Square Cm 1.2 1.4 -Photo Taken No No -Tunneling Yes -Tunneling Position (O'clock) 9 -Tunneling Distance (cm) 9 -Exudate Amt None Present Large -Exudate Type Serosanguineous -Wound Margin Thickened Well Defined, Not Attached -Granulation Amt None Present (0 Medium (34-66%) %) -Granulation Quality Red -Necrosis Amt Large (67-100%) Medium (34-66%) -Necrotic Tissue Type Eschar Adherent Slough -Structure Exposed N/A N/A -Texture (Anca-wound Skin Appearance) Scarring Scarring -Moisture (Anca-wound Skin Appearance) No Abnormality No Abnormality -Color (Anca-wound Skin Appearance) No Abnormality Erythema -Temperature (Anca-wound Skin No Abnormality No Abnormality Appearance) (Pt Warm) (Pt Warm) -Tenderness on Palpation (Anca-wound No No Skin Appearance) -Ulcer Cleansing Soap and Water Soap and Water -Foul Odor after Cleansing No No -Anesthetic Used 4% Lidocaine 4% Lidocaine Solution Solution #5 RIGHT BREAST -Current Size (cm) - Length 0.7 0.5 0.1 -Current Size (cm) - Width 0.6 0.7 0.1 -Current Size (cm) - Depth 0.1 0.1 0.1 -Total Square Cm 0.42 0.35 0.01 -Photo Taken No No No -Exudate Amt None Present Small None Present -Exudate Type Serosanguineous -Wound Margin Distinct, Distinct, Thickened Outline Outline Attached Attached -Granulation Amt Small (1-33%) Large (67-100%) None Present (0 %) -Granulation Quality Red Pale,[place] -Necrosis Amt Small (1-33%) None Present (0 Small (1-33%) %) -Necrotic Tissue Type Adherent Slough Adherent Slough -Structure Exposed N/A N/A N/A -Texture (Anca-wound Skin Appearance) Scarring Scarring Scarring -Moisture (Anca-wound Skin Appearance) No Abnormality No Abnormality No Abnormality -Color (Anca-wound Skin Appearance) No Abnormality No Abnormality No Abnormality -Temperature (Anca-wound Skin No Abnormality No Abnormality No Abnormality Appearance) (Pt Warm) (Pt Warm) (Pt Warm) -Tenderness on Palpation (Anca-wound No No Skin Appearance) -Ulcer Cleansing Soap and Water Soap and Water Soap and Water -Foul Odor after Cleansing No No No -Anesthetic Used 4% Lidocaine 5% Lidocaine 4% Lidocaine Solution Gel Solution #4 Lower Mid Back -Current Size (cm) - Length 0.6 0.1 0 -Current Size (cm) - Width 0.4 0.1 0 -Current Size (cm) - Depth 0.1 0.1 0 -Total Square Cm 0.24 0.01 0 -Photo Taken No No Yes -Exudate Amt None Present None Present None Present -Wound Margin Thickened Flat & Intact -Granulation Amt None Present (0 Small (1-33%) Large (67-100%) %) -Granulation Quality [place] -Necrosis Amt Large (67-100%) Small (1-33%) None Present (0 %) -Necrotic Tissue Type Adherent Slough Eschar -Structure Exposed N/A N/A N/A -Texture (Anca-wound Skin Appearance) Scarring Scarring No Abnormality -Moisture (Anca-wound Skin Appearance) No Abnormality Dry/Scaly No Abnormality -Color (Anca-wound Skin Appearance) No Abnormality No Abnormality No Abnormality -Temperature (Anca-wound Skin No Abnormality No Abnormality Appearance) (Pt Warm) (Pt Warm) -Tenderness on Palpation (Anca-wound No No No Skin Appearance) -Ulcer Cleansing Soap and Water Soap and Water Soap and Water -Foul Odor after Cleansing No No -Anesthetic Used 5% Lidocaine 5% Lidocaine Gel Gel #3 Upper Mid Back -Current Size (cm) - Length 1.1 0.4 0 -Current Size (cm) - Width 0.5 0.2 0 -Current Size (cm) - Depth 0.1 0.1 0 -Total Square Cm 0.55 0.08 0 -Photo Taken No No Yes -Exudate Amt Small None Present None Present -Exudate Type Serosanguineous -Wound Margin Distinct, Thickened Flat & Intact Outline Attached -Granulation Amt Small (1-33%) Small (1-33%) Large (67-100%) -Granulation Quality [place] -Necrosis Amt Small (1-33%) Small (1-33%) None Present (0 %) -Necrotic Tissue Type Adherent Slough Adherent Slough -Structure Exposed N/A N/A -Texture (Anca-wound Skin Appearance) Scarring Scarring No Abnormality -Moisture (Anca-wound Skin Appearance) No Abnormality Dry/Scaly No Abnormality -Color (Anca-wound Skin Appearance) No Abnormality No Abnormality -Temperature (Anca-wound Skin No Abnormality No Abnormality No Abnormality Appearance) (Pt Warm) (Pt Warm) (Pt Warm) -Tenderness on Palpation (Anca-wound No No No Skin Appearance) -Ulcer Cleansing Soap and Water Soap and Water Soap and Water -Foul Odor after Cleansing No No No -Anesthetic Used 5% Lidocaine 5% Lidocaine Gel Gel #2 Mid abd/Bellybutton -Current Size (cm) - Length 0.8 1.2 0.8 -Current Size (cm) - Width 0.6 0.7 0.4 -Current Size (cm) - Depth 1 0.7 0.5 -Total Square Cm 0.48 0.84 0.32 -Photo Taken No No No -Tunneling Position (O'clock) 7 6 -Tunneling Distance (cm) 2.5 2.4 -Maximum Distance #2 (cm) 0.3 0.4 -Circular Undermining Yes Yes -Exudate Amt Small Medium Medium -Exudate Type Serosanguineous Serosanguineous Serosanguineous -Wound Margin Distinct, Distinct, Distinct, Outline Outline Outline Attached Attached Attached -Granulation Amt Medium (34-66%) Large (67-100%) Large (67-100%) -Granulation Quality Pale,[place] Pale,[place] Pale,[place] -Necrosis Amt Medium (34-66%) None Present (0 Small (1-33%) %) -Necrotic Tissue Type Adherent Slough Adherent Slough -Structure Exposed N/A N/A -Texture (Anca-wound Skin Appearance) Scarring Scarring Scarring,Rash -Moisture (Anca-wound Skin Appearance) No Abnormality No Abnormality -Color (Anca-wound Skin Appearance) No Abnormality No Abnormality Erythema -Temperature (Anca-wound Skin No Abnormality No Abnormality Appearance) (Pt Warm) (Pt Warm) -Tenderness on Palpation (Anca-wound No No Skin Appearance) -Ulcer Cleansing Soap and Water Soap and Water Soap and Water -Foul Odor after Cleansing No No No -Anesthetic Used 4% Lidocaine 4% Lidocaine 4% Lidocaine Solution Solution Solution #1 Lower Abd -Current Size (cm) - Length 0.7 -Current Size (cm) - Width 8 -Current Size (cm) - Depth 2.8 -Total Square Cm 5.6 -Photo Taken No -Tunneling Position (O'clock) 3 -Tunneling Distance (cm) 3.6 -Maximum Distance #2 (cm) 1.1 -Circular Undermining Yes -Exudate Amt Medium -Exudate Type Serosanguineous -Wound Margin Distinct, Outline Attached -Granulation Amt None Present (0 %) -Necrosis Amt Large (67-100%) -Necrotic Tissue Type Adherent Slough -Texture (Anca-wound Skin Appearance) Scarring -Moisture (Anca-wound Skin Appearance) No Abnormality -Color (Anca-wound Skin Appearance) No Abnormality -Temperature (Anca-wound Skin No Abnormality Appearance) (Pt Warm) -Tenderness on Palpation (Anca-wound No Skin Appearance) -Ulcer Cleansing Soap and Water -Foul Odor after Cleansing No -Anesthetic Used 4% Lidocaine Solution 09/02/21 09:56 Wound Center Nurse 1 #7 left lower ABD -Current Size (cm) - Length 0.8 -Current Size (cm) - Width 1.8 -Current Size (cm) - Depth 2.1 -Total Square Cm 1.44 -Photo Taken Yes -Tunneling Position (O'clock) 9 -Tunneling Distance (cm) 8.5 -Maximum Distance #2 (cm) 4 -Circular Undermining Yes -Exudate Amt Large -Exudate Type Serosanguineous -Wound Margin Distinct, Outline Attached -Granulation Amt Small (1-33%) -Granulation Quality [place] -Necrosis Amt Large (67-100%) -Necrotic Tissue Type Adherent Slough -Structure Exposed N/A -Texture (Anca-wound Skin Appearance) Scarring -Moisture (Anca-wound Skin Appearance) No Abnormality -Color (Anca-wound Skin Appearance) No Abnormality -Temperature (Anca-wound Skin No Abnormality Appearance) (Pt Warm) -Tenderness on Palpation (Anca-wound No Skin Appearance) -Ulcer Cleansing Soap and Water -Foul Odor after Cleansing No -Anesthetic Used 4% Lidocaine Solution #6 right lower ABD -Current Size (cm) - Length -Current Size (cm) - Width -Current Size (cm) - Depth -Total Square Cm -Photo Taken -Tunneling -Tunneling Position (O'clock) -Tunneling Distance (cm) -Exudate Amt -Exudate Type -Wound Margin -Granulation Amt -Granulation Quality -Necrosis Amt -Necrotic Tissue Type -Structure Exposed -Texture (Anca-wound Skin Appearance) -Moisture (Anca-wound Skin Appearance) -Color (Anca-wound Skin Appearance) -Temperature (Anca-wound Skin Appearance) -Tenderness on Palpation (Anca-wound Skin Appearance) -Ulcer Cleansing -Foul Odor after Cleansing -Anesthetic Used #5 RIGHT BREAST -Current Size (cm) - Length -Current Size (cm) - Width -Current Size (cm) - Depth -Total Square Cm -Photo Taken -Exudate Amt -Exudate Type -Wound Margin -Granulation Amt -Granulation Quality -Necrosis Amt -Necrotic Tissue Type -Structure Exposed -Texture (Anca-wound Skin Appearance) -Moisture (Anca-wound Skin Appearance) -Color (Anca-wound Skin Appearance) -Temperature (Anca-wound Skin Appearance) -Tenderness on Palpation (Anca-wound Skin Appearance) -Ulcer Cleansing -Foul Odor after Cleansing -Anesthetic Used #4 Lower Mid Back -Current Size (cm) - Length -Current Size (cm) - Width -Current Size (cm) - Depth -Total Square Cm -Photo Taken -Exudate Amt -Wound Margin -Granulation Amt -Granulation Quality -Necrosis Amt -Necrotic Tissue Type -Structure Exposed -Texture (Anca-wound Skin Appearance) -Moisture (Anca-wound Skin Appearance) -Color (Anca-wound Skin Appearance) -Temperature (Anca-wound Skin Appearance) -Tenderness on Palpation (Anca-wound Skin Appearance) -Ulcer Cleansing -Foul Odor after Cleansing -Anesthetic Used #3 Upper Mid Back -Current Size (cm) - Length -Current Size (cm) - Width -Current Size (cm) - Depth -Total Square Cm -Photo Taken -Exudate Amt -Exudate Type -Wound Margin -Granulation Amt -Granulation Quality -Necrosis Amt -Necrotic Tissue Type -Structure Exposed -Texture (Anca-wound Skin Appearance) -Moisture (Anca-wound Skin Appearance) -Color (Anca-wound Skin Appearance) -Temperature (Anca-wound Skin Appearance) -Tenderness on Palpation (Anca-wound Skin Appearance) -Ulcer Cleansing -Foul Odor after Cleansing -Anesthetic Used #2 Mid abd/Bellybutton -Current Size (cm) - Length 0.6 -Current Size (cm) - Width 0.5 -Current Size (cm) - Depth 0.8 -Total Square Cm 0.30 -Photo Taken Yes -Tunneling Position (O'clock) -Tunneling Distance (cm) -Maximum Distance #2 (cm) -Circular Undermining -Exudate Amt Medium -Exudate Type Serosanguineous -Wound Margin Distinct, Outline Attached -Granulation Amt Medium (34-66%) -Granulation Quality Red -Necrosis Amt Medium (34-66%) -Necrotic Tissue Type Adherent Slough -Structure Exposed N/A -Texture (Anca-wound Skin Appearance) Scarring -Moisture (Anca-wound Skin Appearance) No Abnormality -Color (Anca-wound Skin Appearance) No Abnormality -Temperature (Anca-wound Skin No Abnormality Appearance) (Pt Warm) -Tenderness on Palpation (Anca-wound No Skin Appearance) -Ulcer Cleansing Soap and Water -Foul Odor after Cleansing No -Anesthetic Used 4% Lidocaine Solution #1 Lower Abd -Current Size (cm) - Length -Current Size (cm) - Width -Current Size (cm) - Depth -Total Square Cm -Photo Taken -Tunneling Position (O'clock) -Tunneling Distance (cm) -Maximum Distance #2 (cm) -Circular Undermining -Exudate Amt -Exudate Type -Wound Margin -Granulation Amt -Necrosis Amt -Necrotic Tissue Type -Texture (Anca-wound Skin Appearance) -Moisture (Anca-wound Skin Appearance) -Color (Anca-wound Skin Appearance) -Temperature (Anca-wound Skin Appearance) -Tenderness on Palpation (Anca-wound Skin Appearance) -Ulcer Cleansing -Foul Odor after Cleansing -Anesthetic Used WC - Nurse 2 - General Ulcer CM Notes Start: 08/12/21 09:54 Freq: Status: Active Protocol: Activity Type Activity Date Activity User E-Sign Co-Sign Detail Recorded Client Recorded Date Recorded By Document 08/12/21 09:55 MW [id number] 08/12/21 16:38 MW Document 08/19/21 10:02 MW [id number] 08/19/21 10:17 MW Document 08/26/21 10:10 MW [id number] 08/26/21 10:25 MW Document 09/02/21 10:34 MW [id number] 09/02/21 10:42 MW 08/12/21 08/19/21 08/26/21 09:55 10:02 10:10 Wound Center Nurse 2 #7 left lower ABD -Time 09:55 10:05 10:11 -Correct Patient Yes Yes Yes -Correct Side, Site, Position Yes Yes Yes -Correct Procedure Yes Yes Yes -Procedure Performed Yes Yes Yes -Type of Procedure Debridement Debridement Debridement -Clinical Debridement Subcutaneous Subcutaneous Subcutaneous -Tissue Removed Subcutaneous Subcutaneous Subcutaneous -Post Debridement (cm) - Length 1.0 0.8 0.8 -Post Debridement (cm) - Width 3.0 2.5 2.4 -Post Debridement (cm) - Depth 3.1 2.7 2.7 -Total Square (Post) (cm) 3.00 2.00 1.92 -Area of Debridement (cm) - Length 1.0 0.8 0.8 -Area of Debridement (cm) - Width 3.0 2.5 2.4 -Total Square (Area) (cm) 3.00 2.00 1.92 -Tunneling No Yes Yes -Tunneling Position (O'clock) 9 3 -Tunneling Distance (cm) 8.0 4.5 -Tunneling Position #2 (O'clock) 3 9 -Tunneling Distance #2 (cm) 3.0 8.3 -Undermining/Tunneling No No No -Circular Undermining No No No -Wound/Ulcer Outcome Not Healed Not Healed Not Healed -Ulcer Cleansing Rinsed/ Rinsed/ Rinsed/ Irrigated with Irrigated with Irrigated with Saline Saline Saline -Foul Odor after Cleansing No No No -Bioengineered Tissue No No No -Bleeding Controlled with Pressure Pressure Pressure -Treatment Response Procedure Procedure Procedure Tolerated Well Tolerated Well Tolerated Well -Offloading No No No -Debridement - Subq, 1st 20sq cm No Yes Yes #6 right lower ABD -Time 10:05 10:11 -Correct Patient Yes Yes Yes -Correct Side, Site, Position Yes Yes Yes -Correct Procedure Yes Yes Yes -Procedure Performed Yes Yes No -Type of Procedure Debridement Debridement -Clinical Debridement Subcutaneous Subcutaneous -Tissue Removed Subcutaneous Subcutaneous -Post Debridement (cm) - Length 0.4 0.3 0 -Post Debridement (cm) - Width 3.6 3.4 0 -Post Debridement (cm) - Depth 0.1 0.1 0 -Total Square (Post) (cm) 1.44 1.02 0 -Area of Debridement (cm) - Length 0.4 0.3 -Area of Debridement (cm) - Width 3.6 3.4 -Total Square (Area) (cm) 1.44 1.02 -Tunneling No No -Undermining/Tunneling No No -Circular Undermining No No -Wound/Ulcer Outcome Not Healed Not Healed Healed- Epithelialized -Ulcer Cleansing Rinsed/ Rinsed/ Irrigated with Irrigated with Saline Saline -Foul Odor after Cleansing No No -Bioengineered Tissue No No -Bleeding Controlled with Pressure Pressure -Treatment Response Procedure Procedure Tolerated Well Tolerated Well -Offloading No No -Debridement - Subq, 1st 20sq cm No No #5 RIGHT BREAST -Time : 10:11 10:17 -Correct Patient Yes Yes Yes -Correct Side, Site, Position Yes Yes Yes -Correct Procedure Yes Yes Yes -Procedure Performed Yes Yes No -Type of Procedure Debridement Debridement -Clinical Debridement Subcutaneous Subcutaneous -Tissue Removed Subcutaneous Subcutaneous -Post Debridement (cm) - Length 0.7 0.4 0 -Post Debridement (cm) - Width 1.2 1.0 0 -Post Debridement (cm) - Depth 0.1 0.1 0 -Total Square (Post) (cm) 0.84 0.40 0 -Area of Debridement (cm) - Length 0.7 0.4 -Area of Debridement (cm) - Width 1.2 1.0 -Total Square (Area) (cm) 0.84 0.40 -Tunneling No No No -Undermining/Tunneling No No No -Circular Undermining No No No -Wound/Ulcer Outcome Not Healed Not Healed Healed- Epithelialized -Ulcer Cleansing Rinsed/ Rinsed/ Irrigated with Irrigated with Saline Saline -Foul Odor after Cleansing No No -Bioengineered Tissue No No -Bleeding Controlled with Pressure Pressure -Treatment Response Procedure Procedure Tolerated Well Tolerated Well -Offloading No No -Debridement - Subq, 1st 20sq cm Yes No #4 Lower Mid Back -Time : 10:11 10:19 -Correct Patient Yes Yes Yes -Correct Side, Site, Position Yes Yes Yes -Correct Procedure Yes Yes Yes -Procedure Performed Yes Yes No -Type of Procedure Debridement Debridement -Clinical Debridement Subcutaneous Subcutaneous -Tissue Removed Subcutaneous Subcutaneous -Post Debridement (cm) - Length 1.5 0.1 0 -Post Debridement (cm) - Width 0.7 0.1 0 -Post Debridement (cm) - Depth 0.1 0.1 0 -Total Square (Post) (cm) 1.05 0.01 0 -Area of Debridement (cm) - Length 1.5 0.1 -Area of Debridement (cm) - Width 0.7 0.1 -Total Square (Area) (cm) 1.05 0.01 -Tunneling No No -Undermining/Tunneling No No -Circular Undermining No No -Wound/Ulcer Outcome Not Healed Not Healed Healed- Epithelialized -Ulcer Cleansing Rinsed/ Rinsed/ Irrigated with Irrigated with Saline Saline -Foul Odor after Cleansing No No -Bioengineered Tissue No No -Bleeding Controlled with Pressure Pressure -Treatment Response Procedure Procedure Tolerated Well Tolerated Well -Offloading No No -Debridement - Subq, 1st 20sq cm No No #3 Upper Mid Back -Time : 10:11 10:19 -Correct Patient Yes Yes Yes -Correct Side, Site, Position Yes Yes Yes -Correct Procedure Yes Yes Yes -Procedure Performed Yes Yes No -Type of Procedure Debridement Debridement -Clinical Debridement Subcutaneous Subcutaneous -Tissue Removed Subcutaneous Subcutaneous -Post Debridement (cm) - Length 0.8 0.9 0 -Post Debridement (cm) - Width 0.2 0.2 0 -Post Debridement (cm) - Depth 0.2 0.1 0 -Total Square (Post) (cm) 0.16 0.18 0 -Area of Debridement (cm) - Length 0.8 0.9 -Area of Debridement (cm) - Width 0.2 0.2 -Total Square (Area) (cm) 0.16 0.18 -Tunneling No No -Undermining/Tunneling No No -Circular Undermining No No -Wound/Ulcer Outcome Not Healed Not Healed Healed- Epithelialized -Ulcer Cleansing Rinsed/ Rinsed/ Irrigated with Irrigated with Saline Saline -Foul Odor after Cleansing No No -Bioengineered Tissue No No -Bleeding Controlled with Pressure Pressure -Treatment Response Procedure Procedure Tolerated Well Tolerated Well -Offloading No No -Debridement - Subq, 1st 20sq cm No No #2 Mid abd/Bellybutton -Time 09:55 10:12 10:20 -Correct Patient Yes Yes Yes -Correct Side, Site, Position Yes Yes Yes -Correct Procedure Yes Yes Yes -Procedure Performed Yes Yes Yes -Type of Procedure Debridement Debridement Debridement -Clinical Debridement Subcutaneous Subcutaneous Subcutaneous -Tissue Removed Subcutaneous Subcutaneous Subcutaneous -Post Debridement (cm) - Length 2.4 0.1 0.1 -Post Debridement (cm) - Width 0.1 0.1 0.1 -Post Debridement (cm) - Depth 1.7 0.1 0.1 -Total Square (Post) (cm) 0.24 0.01 0.01 -Area of Debridement (cm) - Length 2.4 0.1 0.1 -Area of Debridement (cm) - Width 0.1 0.1 0.1 -Total Square (Area) (cm) 0.24 0.01 0.01 -Tunneling No Yes No -Tunneling Position (O'clock) 6 -Tunneling Distance (cm) 3.5 -Undermining/Tunneling No No No -Circular Undermining No No No -Wound/Ulcer Outcome Not Healed Not Healed Not Healed -Ulcer Cleansing Rinsed/ Rinsed/ Rinsed/ Irrigated with Irrigated with Irrigated with Saline Saline Saline -Foul Odor after Cleansing No No No -Bioengineered Tissue No No No -Bleeding Controlled with Pressure Pressure Pressure -Treatment Response Procedure Procedure Procedure Tolerated Well Tolerated Well Tolerated Well -Offloading No No No -Debridement - Subq, 1st 20sq cm No No No #1 Lower Abd -Time 09:55 -Correct Patient Yes -Correct Side, Site, Position Yes -Correct Procedure Yes -Procedure Performed No -Wound/Ulcer Outcome Converted Pain Scale: 0-10 Numeric Is Patient Pain Free? Yes Yes Yes 09/02/21 10:34 Wound Center Nurse 2 #7 left lower ABD -Time 10:34 -Correct Patient Yes -Correct Side, Site, Position Yes -Correct Procedure Yes -Procedure Performed Yes -Type of Procedure Debridement -Clinical Debridement Subcutaneous -Tissue Removed Subcutaneous -Post Debridement (cm) - Length 0.9 -Post Debridement (cm) - Width 2.0 -Post Debridement (cm) - Depth 3.0 -Total Square (Post) (cm) 1.80 -Area of Debridement (cm) - Length 0.9 -Area of Debridement (cm) - Width 2.0 -Total Square (Area) (cm) 1.80 -Tunneling Yes -Tunneling Position (O'clock) 3 -Tunneling Distance (cm) 1.8 -Tunneling Position #2 (O'clock) 9 -Tunneling Distance #2 (cm) 9.5 -Undermining/Tunneling Yes -Circular Undermining No -Wound/Ulcer Outcome Not Healed -Ulcer Cleansing Rinsed/ Irrigated with Saline -Foul Odor after Cleansing No -Bioengineered Tissue No -Bleeding Controlled with Pressure -Treatment Response Procedure Tolerated Well -Offloading No -Debridement - Subq, 1st 20sq cm Yes #6 right lower ABD -Time -Correct Patient -Correct Side, Site, Position -Correct Procedure -Procedure Performed -Type of Procedure -Clinical Debridement -Tissue Removed -Post Debridement (cm) - Length -Post Debridement (cm) - Width -Post Debridement (cm) - Depth -Total Square (Post) (cm) -Area of Debridement (cm) - Length -Area of Debridement (cm) - Width -Total Square (Area) (cm) -Tunneling -Undermining/Tunneling -Circular Undermining -Wound/Ulcer Outcome -Ulcer Cleansing -Foul Odor after Cleansing -Bioengineered Tissue -Bleeding Controlled with -Treatment Response -Offloading -Debridement - Subq, 1st 20sq cm #5 RIGHT BREAST -Time -Correct Patient -Correct Side, Site, Position -Correct Procedure -Procedure Performed -Type of Procedure -Clinical Debridement -Tissue Removed -Post Debridement (cm) - Length -Post Debridement (cm) - Width -Post Debridement (cm) - Depth -Total Square (Post) (cm) -Area of Debridement (cm) - Length -Area of Debridement (cm) - Width -Total Square (Area) (cm) -Tunneling -Undermining/Tunneling -Circular Undermining -Wound/Ulcer Outcome -Ulcer Cleansing -Foul Odor after Cleansing -Bioengineered Tissue -Bleeding Controlled with -Treatment Response -Offloading -Debridement - Subq, 20sq cm #4 Lower Mid Back -Time -Correct Patient -Correct Side, Site, Position -Correct Procedure -Procedure Performed -Type of Procedure -Clinical Debridement -Tissue Removed -Post Debridement (cm) - Length -Post Debridement (cm) - Width -Post Debridement (cm) - Depth -Total Square (Post) (cm) -Area of Debridement (cm) - Length -Area of Debridement (cm) - Width -Total Square (Area) (cm) -Tunneling -Undermining/Tunneling -Circular Undermining -Wound/Ulcer Outcome -Ulcer Cleansing -Foul Odor after Cleansing -Bioengineered Tissue -Bleeding Controlled with -Treatment Response -Offloading -Debridement - Subq, 20sq cm #3 Upper Mid Back -Time -Correct Patient -Correct Side, Site, Position -Correct Procedure -Procedure Performed -Type of Procedure -Clinical Debridement -Tissue Removed -Post Debridement (cm) - Length -Post Debridement (cm) - Width -Post Debridement (cm) - Depth -Total Square (Post) (cm) -Area of Debridement (cm) - Length -Area of Debridement (cm) - Width -Total Square (Area) (cm) -Tunneling -Undermining/Tunneling -Circular Undermining -Wound/Ulcer Outcome -Ulcer Cleansing -Foul Odor after Cleansing -Bioengineered Tissue -Bleeding Controlled with -Treatment Response -Offloading -Debridement - Subq, 20sq cm #2 Mid abd/Bellybutton -Time 10:35 -Correct Patient Yes -Correct Side, Site, Position Yes -Correct Procedure Yes -Procedure Performed Yes -Type of Procedure Debridement -Clinical Debridement Subcutaneous -Tissue Removed Subcutaneous -Post Debridement (cm) - Length 0.1 -Post Debridement (cm) - Width 0.1 -Post Debridement (cm) - Depth 0.1 -Total Square (Post) (cm) 0.01 -Area of Debridement (cm) - Length 0.1 -Area of Debridement (cm) - Width 0.1 -Total Square (Area) (cm) 0.01 -Tunneling Yes -Tunneling Position (O'clock) 6 -Tunneling Distance (cm) 2.5 -Undermining/Tunneling No -Circular Undermining No -Wound/Ulcer Outcome Not Healed -Ulcer Cleansing Rinsed/ Irrigated with Saline -Foul Odor after Cleansing No -Bioengineered Tissue No -Bleeding Controlled with Pressure -Treatment Response Procedure Tolerated Well -Offloading No -Debridement - Subq, 1st 20sq cm No #1 Lower Abd -Time -Correct Patient -Correct Side, Site, Position -Correct Procedure -Procedure Performed -Wound/Ulcer Outcome Pain Scale: 0-10 Numeric Is Patient Pain Free? Yes WC - Nurse 3 - General Ulcer D/C NN Start: 08/12/21 09:54 Freq: Status: Active Protocol: Activity Type Activity Date Activity User E-Sign Co-Sign Detail Recorded Client Recorded Date Recorded By Document 08/19/21 12:00 DL [id number] 08/19/21 12:04 DL Edit Result 08/19/21 12:00 DL (1) [id number] 08/19/21 15:54 PL Document 08/26/21 10:51 BMF [id number] 08/26/21 10:52 BMF Document 08/30/21 08:21 KR [id number] 08/30/21 08:24 KR Edit Result 08/30/21 08:21 KR (2) [id number] 08/31/21 07:16 PL Document 09/02/21 11:08 DL [id number] 09/02/21 11:09 DL (1) #7 left lower ABD - NPWT Application Charge NPWT </= 50 sq cm => NPWT & Debridement ($) => (nc) (2) #7 left lower ABD - Foul Odor after Cleansing => No - Negative Pressure Wound Therapy => Continue - NPWT Application Charge => NPWT > 50 sq cm ($ => ) 08/19/21 08/26/21 08/30/21 12:00 10:51 08:21 Wound Care Nurse 3 #7 left lower ABD -Ulcer Cleansing Soap and Water Rinsed/ Soap and Water Irrigated with Saline -Foul Odor after Cleansing No No No -Negative Pressure Wound Therapy Continue Continue Continue -Setting (mmHg) 150 150 150 -Negative Pressure is Continuous Continuous Continuous -NPWT Application Charge NPWT & NPWT & NPWT > 50 sq cm Debridement (nc Debridement (nc ($) ) ) #6 right lower ABD -Ulcer Cleansing Soap and Water -Foul Odor after Cleansing No -Primary Dressing Applied Promogran -Primary Dressing Covered/Secured with Dry Gauze, Secured with Tape -Promogran 1 #5 RIGHT BREAST -Ulcer Cleansing Soap and Water -Foul Odor after Cleansing No -Primary Dressing Applied NonAdherent Contact Layer -Other Dressing promogran -Primary Dressing Covered/Secured with Dry Gauze, Secured with Tape #4 Lower Mid Back -Ulcer Cleansing Soap and Water -Foul Odor after Cleansing No -Other Dressing promogran -Primary Dressing Covered/Secured with Dry Gauze, Secured with Tape #3 Upper Mid Back -Ulcer Cleansing Not Cleansed -Foul Odor after Cleansing No -Other Dressing promogran -Primary Dressing Covered/Secured with Dry Gauze, Secured with Tape #2 Mid abd/Bellybutton -Ulcer Cleansing Soap and Water Rinsed/ Rinsed/ Irrigated with Irrigated with Saline Saline -Foul Odor after Cleansing No No -Negative Pressure Wound Therapy Continue Continue -Setting (mmHg) 150 150 150 -Negative Pressure is Continuous Continuous Continuous -NPWT Application Charge NPWT </= 50 sq NPWT & cm ($) Debridement (nc ) Treatment Response Procedure Procedure Tolerated Well Tolerated Well Vital Signs Temperature (97.8 F-99.1 F) 97.0 F L Temperature Source Temporal Pulse Rate (60-100) 61 Pulse Location Monitor Blood Pressure (90/60-120/80) 128/81 H Blood Pressure Mean (mm Hg) 96 Source Monitor Position Semi-Fowlers Blood Pressure Location Right Arm Pain Scale: 0-10 Numeric Is Patient Pain Free? Yes Yes Yes WC - Visit Discharge Discharge Condition Stable Stable Stable Ambulatory Status Ambulatory Ambulatory Ambulatory Transportation Private Auto Private Auto Accompanied by family Facility Type Home Health Orders Sent Yes 09/02/21 11:08 Wound Care Nurse 3 #7 left lower ABD -Ulcer Cleansing Soap and Water -Foul Odor after Cleansing -Negative Pressure Wound Therapy Continue -Setting (mmHg) 150 -Negative Pressure is Continuous -NPWT Application Charge NPWT </= 50 sq cm ($) #6 right lower ABD -Ulcer Cleansing -Foul Odor after Cleansing -Primary Dressing Applied -Primary Dressing Covered/Secured with -Promogran #5 RIGHT BREAST -Ulcer Cleansing -Foul Odor after Cleansing -Primary Dressing Applied -Other Dressing -Primary Dressing Covered/Secured with #4 Lower Mid Back -Ulcer Cleansing -Foul Odor after Cleansing -Other Dressing -Primary Dressing Covered/Secured with #3 Upper Mid Back -Ulcer Cleansing -Foul Odor after Cleansing -Other Dressing -Primary Dressing Covered/Secured with #2 Mid abd/Bellybutton -Ulcer Cleansing Soap and Water -Foul Odor after Cleansing No -Negative Pressure Wound Therapy Continue -Setting (mmHg) 150 -Negative Pressure is Continuous -NPWT Application Charge NPWT </= 50 sq cm ($) Treatment Response Procedure Tolerated Well Vital Signs Temperature (97.8 F-99.1 F) Temperature Source Pulse Rate (60-100) Pulse Location Blood Pressure (90/60-120/80) Blood Pressure Mean (mm Hg) Source Position Blood Pressure Location Pain Scale: 0-10 Numeric Is Patient Pain Free? Yes WC - Visit Discharge Discharge Condition Stable Ambulatory Status Ambulatory Transportation Private Auto Accompanied by Facility Type Orders Sent Assessment/Plan Assessment/Plan (1) Surgical wound breakdown: CODE(S): T81.31XA - Disruption of external operation (surgical) wound, not elsewhere classified, initial encounter QUALIFIERS: Encounter type: initial encounter Qualified Code(s): T81.31XA - Disruption of external operation (surgical) wound, not elsewhere classified, initial encounter (2) Non-healing surgical wound: CODE(S): T81.89XA - Other complications of procedures, not elsewhere classified, initial encounter QUALIFIERS: Encounter type: initial encounter Qualified Code(s): T81.89XA - Other complications of procedures, not elsewhere classified, initial encounter PLAN: Left lower abdominal wound and umbilical area with some improvement in tunneling. Tolerating wound Vac. Continue wound VAC at 150 mmHg. Come in for a nurse visit on Monday for change. Increased protein intake, vitamin C and zinc recommended. She voiced understanding. Her questions were answered and she was advised to call with any further questions or concerns. Follow-up in a week. This note was generated with [employer] software. It may contain incorrect words, spelling, and punctuation that were not noted in checking the note before signing.
[2021-09-06 11:39] VITALS: BP 126/99; PULSE 62; RESP 16; TEMP 36.1; BMI 28.4
[2021-09-09 09:32] VITALS: BP 142/87; PULSE 66; RESP 18; TEMP 36.1; BMI 28.4
--- NOTE | 2021-09-09 10:01 | PCM.WC.PN ---
History of Present Illness Date of Service: 09/09/21 Chief Complaint: Surgical wound break down History of Wound: Ms. Quintero is a 35-year-old who presents to the wound center due to surgical wound breakdown. Had extensive surgery done in June to remove excess skin following weight loss from bariatric surgery. Surgery was done in [place]. Surgery was uneventful and for the most part has done really well post surgery. Had some areas of wound breakdown. Has been applying Medihoney and Aquacel without any significant improvement. Minimal clear with blood tingled drainage. She was referred here by her primary care physician. She denies any history of diabetes mellitus, tobacco or alcohol abuse. Feels well otherwise. Progress of Wound: Improving lower abdominal and umbilical wounds. Prior healed wounds stay healed. Subjective Subjective No new concerns at this time Objective Data Objective Data Vital Signs: Vital Signs Temp Pulse Resp BP 97 F L 66 18 142/87 H 09/09/21 09:32 09/09/21 09:32 09/09/21 09:32 09/09/21 09:32 Oxygen Delivery Method Room Air Weight: 160 lb 11.834 oz Body Mass Index (BMI) 28.4 Lab / Micro Data Micro: Microbiology 08/19/21 10:00 Wound Abcess - Abdominal Gram Stain - Final 08/19/21 10:00 Wound Abcess - Abdominal Wound Culture - Final Klebsiella pneumoniae sp pneum 08/19/21 10:00 Wound Abcess - Abdominal Anaerobic Culture - Final Charges/Coding Procedures Integumentary [id number]: [id number] Hollie subq tissue 20 sq cm/< Physical Exam Const alert, oriented x3 and no apparent distress General Appearance: cooperative, comfortable, well kempt and well developed HEENT normocephalic and head/scalp atraumatic Head and Scalp: normal to inspection and normocephalic Eyes EOMs intact bilaterally General Eye: normal appearance of both eyes Neck full ROM General: normal visual inspection Resp normal respiratory effort Effort and Inspection: able to speak in complete sentences Skin Wounds: wounds noted Neuro oriented x3, CN's II-XII intact bilaterally, moves all extremities and no focal motor deficits Psych mental status grossly normal Appearance: grossly normal Attitude: calm Activity / Motor Behavior: appropriate eye contact Speech: normal speech Thought Process: normal thought process Debridement Note Debridement Note Wound debrided: Lower abdomen Type of Debridement: Excisional debridement Anesthesia Used: 4% Lidocaine Solution Depth: Down to and including healthy tissue and in the subcutaneous layer Percentage of wound debrided: 100 Instrument Used: 3mm curette Tissue Removed: Slough and devitalized tissue Severity: Fat Layer Exposed Amount of bleeding with debridement: Mild Bleeding Controlled with: Pressure Patient tolerated procedure: Patient tolerated procedure well Post-Debridement Measurements and Additional Note: Post-Debridement Measurements/Treatment - Nurse 1 - General Ulcer Assessment Start: 08/12/21 09:54 Freq: Status: Active Protocol: KANG Activity Type Activity Date Activity User E-Sign Co-Sign Detail Recorded Client Recorded Date Recorded By Document 08/12/21 11:52 DL [id number] 08/12/21 11:57 DL Document 08/19/21 09:31 DL [id number] 08/19/21 09:49 DL Document 08/26/21 09:33 DL [id number] 08/26/21 09:55 DL Document 08/30/21 08:21 KR [id number] 08/30/21 08:24 KR Document 09/02/21 09:56 DL [id number] 09/02/21 10:06 DL Document 09/06/21 11:39 BMF [id number] 09/06/21 11:40 BMF Document 09/09/21 09:32 MT [id number] 09/09/21 09:44 MT 08/12/21 08/19/21 08/26/21 11:52 09:31 09:33 - Today's Visit Information Type of service Follow-up Visit Follow-up Visit Follow-up Visit (Physician/LEGAL ARBITRATOR (Physician/LEGAL ARBITRATOR (Physician/LEGAL ARBITRATOR ) ) ) Arrival Mode Ambulatory Ambulatory Ambulatory Transfer Assistance None None None Accompanied by Patient Identification Verified (Name & Yes Yes Yes ) Patient Requires Transmission-Based No No No Precautions Height and Weight Body Mass Index (BMI) 28.4 28.4 28.4 BMI Classification Overweight Overweight Overweight Vital Signs Temperature (97.8 F-99.1 F) 97.1 F L 97.6 F L 97.6 F L Temperature Source Temporal Temporal Temporal Pulse Rate (60-100) 70 81 71 Pulse Location Monitor Apical Monitor Respiratory Rate (12-18) 18 20 H 20 H Respiratory rate source Observation Observation Observation Oxygen Delivery Method Blood Pressure (90/60-120/80) 149/94 H 135/70 H 144/88 H Blood Pressure Mean (mm Hg) 112 91 106 Source Monitor Monitor Monitor Position Blood Pressure Location History Since Last Visit- (Skip if this is Patient's initial visit) Have you changed medications since your No No No last visit? Any new allergies or adverse reactions No No No Had a fall/change in ADL's that may No No No increase risk of falls Signs or symptoms of abuse and/or No No No neglect since last visit Have you been in the hospital since your No No No last visit? Has dressing in place as prescribed Yes Yes Yes Has compression in place as prescribed N/A N/A Has offloadiing in place as prescribed N/A N/A N/A Experienced any changes in pain level or No No No management Left Footwear Right Footwear Pain Scale: 0-10 Numeric Is Patient Pain Free? Yes Yes Yes 08/30/21 09/02/21 09/06/21 08:21 09:56 11:39 WC - Today's Visit Information Type of service Nurse-only Follow-up Visit Nurse-only Visit (Physician/LEGAL ARBITRATOR Visit ) Arrival Mode Ambulatory Ambulatory Ambulatory Transfer Assistance None None Accompanied by Patient Identification Verified (Name & Yes Yes ) Patient Requires Transmission-Based No Precautions Height and Weight Body Mass Index (BMI) 28.4 28.4 28.4 BMI Classification Overweight Overweight Overweight Vital Signs Temperature (97.8 F-99.1 F) 97.0 F L 97.8 F 97 F L Temperature Source Temporal Temporal Temporal Pulse Rate (60-100) 61 64 62 Pulse Location Monitor Monitor Monitor Respiratory Rate (12-18) 18 16 Respiratory rate source Observation Observation Oxygen Delivery Method Room Air Blood Pressure (90/60-120/80) 128/81 H 135/88 H 126/99 H Blood Pressure Mean (mm Hg) 96 103 108 Source Monitor Monitor Monitor Position Semi-Fowlers Sitting Blood Pressure Location Right Arm History Since Last Visit- (Skip if this is Patient's initial visit) Have you changed medications since your No No No last visit? Any new allergies or adverse reactions No No No Had a fall/change in ADL's that may No No No increase risk of falls Signs or symptoms of abuse and/or No No No neglect since last visit Have you been in the hospital since your No No No last visit? Has dressing in place as prescribed Yes Yes Yes Has compression in place as prescribed N/A Yes N/A Has offloadiing in place as prescribed N/A N/A Experienced any changes in pain level or No No No management Left Footwear Regular Shoe Regular Shoe Right Footwear Regular Shoe Regular Shoe Pain Scale: 0-10 Numeric Is Patient Pain Free? Yes Yes Yes 09/09/21 09:32 WC - Today's Visit Information Type of service Follow-up Visit (Physician/LEGAL ARBITRATOR ) Arrival Mode Ambulatory Transfer Assistance Accompanied by self Patient Identification Verified (Name & Yes ) Patient Requires Transmission-Based Precautions Height and Weight Body Mass Index (BMI) 28.4 BMI Classification Overweight Vital Signs Temperature (97.8 F-99.1 F) 97 F L Temperature Source Temporal Pulse Rate (60-100) 66 Pulse Location Monitor Respiratory Rate (12-18) 18 Respiratory rate source Observation Oxygen Delivery Method Room Air Blood Pressure (90/60-120/80) 142/87 H Blood Pressure Mean (mm Hg) 105 Source Monitor Position Sitting Blood Pressure Location Left Arm History Since Last Visit- (Skip if this is Patient's initial visit) Have you changed medications since your last visit? Any new allergies or adverse reactions Had a fall/change in ADL's that may increase risk of falls Signs or symptoms of abuse and/or neglect since last visit Have you been in the hospital since your last visit? Has dressing in place as prescribed Yes Has compression in place as prescribed Yes Has offloadiing in place as prescribed Yes Experienced any changes in pain level or Yes management Left Footwear Regular Shoe Right Footwear Regular Shoe Pain Scale: 0-10 Numeric Is Patient Pain Free? Yes - Nurse 1 - General Ulcer Measurement Start: 08/12/21 09:54 Freq: Status: Active Protocol: Activity Type Activity Date Activity User E-Sign Co-Sign Detail Recorded Client Recorded Date Recorded By Document 08/12/21 11:52 DL [id number] 08/12/21 11:57 DL Edit Result 08/12/21 11:52 DL (1) [id number] 08/12/21 12:10 DL Document 08/19/21 09:31 DL [id number] 08/19/21 09:49 DL Document 08/26/21 09:33 DL [id number] 08/26/21 09:55 DL Document 09/02/21 09:56 DL [id number] 09/02/21 10:06 DL Document 09/09/21 09:32 MT [id number] 09/09/21 09:44 MT (1) #1 Lower Abd - Current Size (cm) - Length => 0.7 - Current Size (cm) - Width => 8 - Current Size (cm) - Depth => 2.8 - Total Square Cm => 5.6 - Photo Taken => No - Tunneling Position (O'clock) => 3 - Tunneling Distance (cm) => 3.6 - Maximum Distance #2 (cm) => 1.1 - Circular Undermining => Yes - Exudate Amt => Medium - Exudate Type => Serosanguineous - Wound Margin => Distinct, Outline => Attached - Granulation Amt => None Present (0%) - Necrosis Amt => Large (67-100%) - Necrotic Tissue Type => Adherent Slough - Texture (Anca-wound Skin Appearance) => Scarring - Moisture (Anca-wound Skin Appearance) => No Abnormality - Color (Anca-wound Skin Appearance) => No Abnormality - Temperature (Anca-wound Skin => No Abnormality (Pt Appearance) => Warm) - Tenderness on Palpation (Anca-wound => No Skin Appearance) - Ulcer Cleansing => Soap and Water - Foul Odor after Cleansing => No - Anesthetic Used => 4% Lidocaine => Solution 08/12/21 08/19/21 08/26/21 11:52 09:31 09:33 Wound Center Nurse 1 #7 left lower ABD -Current Size (cm) - Length 6 0.1 -Current Size (cm) - Width 2 0.1 -Current Size (cm) - Depth 2.8 0.1 -Total Square Cm 12 0.01 -Photo Taken No No -Tunneling -Tunneling Position (O'clock) -Tunneling Distance (cm) -Maximum Distance #2 (cm) -Circular Undermining -Exudate Amt Large None Present -Exudate Type Yellow/Green -Wound Margin Distinct, Indistinct, Non Outline -Visible Attached -Granulation Amt Small (1-33%) Large (67-100%) -Granulation Quality [place] -Slough/Fibrin -Necrosis Amt Large (67-100%) None Present (0 %) -Necrotic Tissue Type Adherent Slough -Structure Exposed N/A N/A -Texture (Anca-wound Skin Appearance) Scarring Scarring -Moisture (Anca-wound Skin Appearance) No Abnormality No Abnormality -Color (Anca-wound Skin Appearance) No Abnormality No Abnormality -Temperature (Anca-wound Skin No Abnormality No Abnormality Appearance) (Pt Warm) (Pt Warm) -Tenderness on Palpation (Anca-wound No No Skin Appearance) -Ulcer Cleansing Soap and Water Soap and Water -Foul Odor after Cleansing No No -Anesthetic Used 4% Lidocaine Solution #6 right lower ABD -Current Size (cm) - Length 0.4 0.7 -Current Size (cm) - Width 3 2 -Current Size (cm) - Depth 0.1 2.8 -Total Square Cm 1.2 1.4 -Photo Taken No No -Tunneling Yes -Tunneling Position (O'clock) 9 -Tunneling Distance (cm) 9 -Exudate Amt None Present Large -Exudate Type Serosanguineous -Wound Margin Thickened Well Defined, Not Attached -Granulation Amt None Present (0 Medium (34-66%) %) -Granulation Quality Red -Necrosis Amt Large (67-100%) Medium (34-66%) -Necrotic Tissue Type Eschar Adherent Slough -Structure Exposed N/A N/A -Texture (Anca-wound Skin Appearance) Scarring Scarring -Moisture (Anca-wound Skin Appearance) No Abnormality No Abnormality -Color (Anca-wound Skin Appearance) No Abnormality Erythema -Temperature (Anca-wound Skin No Abnormality No Abnormality Appearance) (Pt Warm) (Pt Warm) -Tenderness on Palpation (Anca-wound No No Skin Appearance) -Ulcer Cleansing Soap and Water Soap and Water -Foul Odor after Cleansing No No -Anesthetic Used 4% Lidocaine 4% Lidocaine Solution Solution #5 RIGHT BREAST -Current Size (cm) - Length 0.7 0.5 0.1 -Current Size (cm) - Width 0.6 0.7 0.1 -Current Size (cm) - Depth 0.1 0.1 0.1 -Total Square Cm 0.42 0.35 0.01 -Photo Taken No No No -Exudate Amt None Present Small None Present -Exudate Type Serosanguineous -Wound Margin Distinct, Distinct, Thickened Outline Outline Attached Attached -Granulation Amt Small (1-33%) Large (67-100%) None Present (0 %) -Granulation Quality Red Pale,[place] -Necrosis Amt Small (1-33%) None Present (0 Small (1-33%) %) -Necrotic Tissue Type Adherent Slough Adherent Slough -Structure Exposed N/A N/A N/A -Texture (Anca-wound Skin Appearance) Scarring Scarring Scarring -Moisture (Anca-wound Skin Appearance) No Abnormality No Abnormality No Abnormality -Color (Anca-wound Skin Appearance) No Abnormality No Abnormality No Abnormality -Temperature (Anca-wound Skin No Abnormality No Abnormality No Abnormality Appearance) (Pt Warm) (Pt Warm) (Pt Warm) -Tenderness on Palpation (Anca-wound No No Skin Appearance) -Ulcer Cleansing Soap and Water Soap and Water Soap and Water -Foul Odor after Cleansing No No No -Anesthetic Used 4% Lidocaine 5% Lidocaine 4% Lidocaine Solution Gel Solution #4 Lower Mid Back -Current Size (cm) - Length 0.6 0.1 0 -Current Size (cm) - Width 0.4 0.1 0 -Current Size (cm) - Depth 0.1 0.1 0 -Total Square Cm 0.24 0.01 0 -Photo Taken No No Yes -Exudate Amt None Present None Present None Present -Wound Margin Thickened Flat & Intact -Granulation Amt None Present (0 Small (1-33%) Large (67-100%) %) -Granulation Quality [place] -Necrosis Amt Large (67-100%) Small (1-33%) None Present (0 %) -Necrotic Tissue Type Adherent Slough Eschar -Structure Exposed N/A N/A N/A -Texture (Anca-wound Skin Appearance) Scarring Scarring No Abnormality -Moisture (Anca-wound Skin Appearance) No Abnormality Dry/Scaly No Abnormality -Color (Anca-wound Skin Appearance) No Abnormality No Abnormality No Abnormality -Temperature (Anca-wound Skin No Abnormality No Abnormality Appearance) (Pt Warm) (Pt Warm) -Tenderness on Palpation (Anca-wound No No No Skin Appearance) -Ulcer Cleansing Soap and Water Soap and Water Soap and Water -Foul Odor after Cleansing No No -Anesthetic Used 5% Lidocaine 5% Lidocaine Gel Gel #3 Upper Mid Back -Current Size (cm) - Length 1.1 0.4 0 -Current Size (cm) - Width 0.5 0.2 0 -Current Size (cm) - Depth 0.1 0.1 0 -Total Square Cm 0.55 0.08 0 -Photo Taken No No Yes -Exudate Amt Small None Present None Present -Exudate Type Serosanguineous -Wound Margin Distinct, Thickened Flat & Intact Outline Attached -Granulation Amt Small (1-33%) Small (1-33%) Large (67-100%) -Granulation Quality Red [place] -Necrosis Amt Small (1-33%) Small (1-33%) None Present (0 %) -Necrotic Tissue Type Adherent Slough Adherent Slough -Structure Exposed N/A N/A -Texture (Anca-wound Skin Appearance) Scarring Scarring No Abnormality -Moisture (Anca-wound Skin Appearance) No Abnormality Dry/Scaly No Abnormality -Color (Anca-wound Skin Appearance) No Abnormality No Abnormality -Temperature (Anca-wound Skin No Abnormality No Abnormality No Abnormality Appearance) (Pt Warm) (Pt Warm) (Pt Warm) -Tenderness on Palpation (Anca-wound No No No Skin Appearance) -Ulcer Cleansing Soap and Water Soap and Water Soap and Water -Foul Odor after Cleansing No No No -Anesthetic Used 5% Lidocaine 5% Lidocaine Gel Gel #2 Mid abd/Bellybutton -Current Size (cm) - Length 0.8 1.2 0.8 -Current Size (cm) - Width 0.6 0.7 0.4 -Current Size (cm) - Depth 1 0.7 0.5 -Total Square Cm 0.48 0.84 0.32 -Photo Taken No No No -Tunneling Position (O'clock) 7 6 -Tunneling Distance (cm) 2.5 2.4 -Maximum Distance #2 (cm) 0.3 0.4 -Circular Undermining Yes Yes -Exudate Amt Small Medium Medium -Exudate Type Serosanguineous Serosanguineous Serosanguineous -Wound Margin Distinct, Distinct, Distinct, Outline Outline Outline Attached Attached Attached -Granulation Amt Medium (34-66%) Large (67-100%) Large (67-100%) -Granulation Quality Pale,[place] Pale,[place] Pale,[place] -Slough/Fibrin -Necrosis Amt Medium (34-66%) None Present (0 Small (1-33%) %) -Necrotic Tissue Type Adherent Slough Adherent Slough -Structure Exposed N/A N/A -Texture (Anca-wound Skin Appearance) Scarring Scarring Scarring,Rash -Moisture (Anca-wound Skin Appearance) No Abnormality No Abnormality -Color (Anca-wound Skin Appearance) No Abnormality No Abnormality Erythema -Temperature (Anca-wound Skin No Abnormality No Abnormality Appearance) (Pt Warm) (Pt Warm) -Tenderness on Palpation (Anca-wound No No Skin Appearance) -Ulcer Cleansing Soap and Water Soap and Water Soap and Water -Foul Odor after Cleansing No No No -Anesthetic Used 4% Lidocaine 4% Lidocaine 4% Lidocaine Solution Solution Solution #1 Lower Abd -Current Size (cm) - Length 0.7 -Current Size (cm) - Width 8 -Current Size (cm) - Depth 2.8 -Total Square Cm 5.6 -Photo Taken No -Tunneling Position (O'clock) 3 -Tunneling Distance (cm) 3.6 -Maximum Distance #2 (cm) 1.1 -Circular Undermining Yes -Exudate Amt Medium -Exudate Type Serosanguineous -Wound Margin Distinct, Outline Attached -Granulation Amt None Present (0 %) -Necrosis Amt Large (67-100%) -Necrotic Tissue Type Adherent Slough -Texture (Anca-wound Skin Appearance) Scarring -Moisture (Anca-wound Skin Appearance) No Abnormality -Color (Anca-wound Skin Appearance) No Abnormality -Temperature (Anca-wound Skin No Abnormality Appearance) (Pt Warm) -Tenderness on Palpation (Anca-wound No Skin Appearance) -Ulcer Cleansing Soap and Water -Foul Odor after Cleansing No -Anesthetic Used 4% Lidocaine Solution Lower Limb Edema Present 09/02/21 09/09/21 09:56 09:32 Wound Center Nurse 1 #7 left lower ABD -Current Size (cm) - Length 0.8 0.5 -Current Size (cm) - Width 1.8 1.6 -Current Size (cm) - Depth 2.1 2.5 -Total Square Cm 1.44 0.80 -Photo Taken Yes -Tunneling Yes -Tunneling Position (O'clock) 9 9 -Tunneling Distance (cm) 8.5 7.5 -Maximum Distance #2 (cm) 4 -Circular Undermining Yes -Exudate Amt Large -Exudate Type Serosanguineous -Wound Margin Distinct, Flat & Intact Outline Attached -Granulation Amt Small (1-33%) Large (67-100%) -Granulation Quality [place] Pale,[place],Red -Slough/Fibrin No -Necrosis Amt Large (67-100%) None Present (0 %) -Necrotic Tissue Type Adherent Slough -Structure Exposed N/A -Texture (Anca-wound Skin Appearance) Scarring Assessed -Moisture (Anca-wound Skin Appearance) No Abnormality Assessed -Color (Anca-wound Skin Appearance) No Abnormality Assessed -Temperature (Anca-wound Skin No Abnormality No Abnormality Appearance) (Pt Warm) (Pt Warm) -Tenderness on Palpation (Anca-wound No No Skin Appearance) -Ulcer Cleansing Soap and Water Soap and Water -Foul Odor after Cleansing No No -Anesthetic Used 4% Lidocaine 4% Lidocaine Solution Solution #6 right lower ABD -Current Size (cm) - Length -Current Size (cm) - Width -Current Size (cm) - Depth -Total Square Cm -Photo Taken -Tunneling -Tunneling Position (O'clock) -Tunneling Distance (cm) -Exudate Amt -Exudate Type -Wound Margin -Granulation Amt -Granulation Quality -Necrosis Amt -Necrotic Tissue Type -Structure Exposed -Texture (Anca-wound Skin Appearance) -Moisture (Anca-wound Skin Appearance) -Color (Anca-wound Skin Appearance) -Temperature (Anca-wound Skin Appearance) -Tenderness on Palpation (Anca-wound Skin Appearance) -Ulcer Cleansing -Foul Odor after Cleansing -Anesthetic Used #5 RIGHT BREAST -Current Size (cm) - Length -Current Size (cm) - Width -Current Size (cm) - Depth -Total Square Cm -Photo Taken -Exudate Amt -Exudate Type -Wound Margin -Granulation Amt -Granulation Quality -Necrosis Amt -Necrotic Tissue Type -Structure Exposed -Texture (Anca-wound Skin Appearance) -Moisture (Anca-wound Skin Appearance) -Color (Anca-wound Skin Appearance) -Temperature (Anca-wound Skin Appearance) -Tenderness on Palpation (Anca-wound Skin Appearance) -Ulcer Cleansing -Foul Odor after Cleansing -Anesthetic Used #4 Lower Mid Back -Current Size (cm) - Length -Current Size (cm) - Width -Current Size (cm) - Depth -Total Square Cm -Photo Taken -Exudate Amt -Wound Margin -Granulation Amt -Granulation Quality -Necrosis Amt -Necrotic Tissue Type -Structure Exposed -Texture (Anca-wound Skin Appearance) -Moisture (Anca-wound Skin Appearance) -Color (Anca-wound Skin Appearance) -Temperature (Anca-wound Skin Appearance) -Tenderness on Palpation (Anca-wound Skin Appearance) -Ulcer Cleansing -Foul Odor after Cleansing -Anesthetic Used #3 Upper Mid Back -Current Size (cm) - Length -Current Size (cm) - Width -Current Size (cm) - Depth -Total Square Cm -Photo Taken -Exudate Amt -Exudate Type -Wound Margin -Granulation Amt -Granulation Quality -Necrosis Amt -Necrotic Tissue Type -Structure Exposed -Texture (Anca-wound Skin Appearance) -Moisture (Anca-wound Skin Appearance) -Color (Anca-wound Skin Appearance) -Temperature (Anca-wound Skin Appearance) -Tenderness on Palpation (Anca-wound Skin Appearance) -Ulcer Cleansing -Foul Odor after Cleansing -Anesthetic Used #2 Mid abd/Bellybutton -Current Size (cm) - Length 0.6 0.5 -Current Size (cm) - Width 0.5 0.5 -Current Size (cm) - Depth 0.8 0.5 -Total Square Cm 0.30 0.25 -Photo Taken Yes -Tunneling Position (O'clock) -Tunneling Distance (cm) -Maximum Distance #2 (cm) -Circular Undermining -Exudate Amt Medium Medium -Exudate Type Serosanguineous Serosanguineous -Wound Margin Distinct, Flat & Intact Outline Attached -Granulation Amt Medium (34-66%) Large (67-100%) -Granulation Quality Red Pale,[place] -Slough/Fibrin No -Necrosis Amt Medium (34-66%) -Necrotic Tissue Type Adherent Slough -Structure Exposed N/A -Texture (Anca-wound Skin Appearance) Scarring Assessed -Moisture (Anca-wound Skin Appearance) No Abnormality Assessed -Color (Anca-wound Skin Appearance) No Abnormality Assessed -Temperature (Anca-wound Skin No Abnormality No Abnormality Appearance) (Pt Warm) (Pt Warm) -Tenderness on Palpation (Anca-wound No No Skin Appearance) -Ulcer Cleansing Soap and Water Soap and Water -Foul Odor after Cleansing No No -Anesthetic Used 4% Lidocaine 4% Lidocaine Solution Solution #1 Lower Abd -Current Size (cm) - Length -Current Size (cm) - Width -Current Size (cm) - Depth -Total Square Cm -Photo Taken -Tunneling Position (O'clock) -Tunneling Distance (cm) -Maximum Distance #2 (cm) -Circular Undermining -Exudate Amt -Exudate Type -Wound Margin -Granulation Amt -Necrosis Amt -Necrotic Tissue Type -Texture (Anca-wound Skin Appearance) -Moisture (Anca-wound Skin Appearance) -Color (Anca-wound Skin Appearance) -Temperature (Anca-wound Skin Appearance) -Tenderness on Palpation (Anca-wound Skin Appearance) -Ulcer Cleansing -Foul Odor after Cleansing -Anesthetic Used Lower Limb Edema Present NA WC - Nurse 2 - General Ulcer CM Notes Start: 08/12/21 09:54 Freq: Status: Active Protocol: Activity Type Activity Date Activity User E-Sign Co-Sign Detail Recorded Client Recorded Date Recorded By Document 08/12/21 09:55 MW [id number] 08/12/21 16:38 MW Document 08/19/21 10:02 MW [id number] 08/19/21 10:17 MW Document 08/26/21 10:10 MW [id number] 08/26/21 10:25 MW Document 09/02/21 10:34 MW [id number] 09/02/21 10:42 MW Document 09/09/21 09:53 MW [id number] 09/09/21 09:59 MW 08/12/21 08/19/21 08/26/21 09:55 10:02 10:10 Wound Center Nurse 2 #7 left lower ABD -Time 09:55 10:05 10:11 -Correct Patient Yes Yes Yes -Correct Side, Site, Position Yes Yes Yes -Correct Procedure Yes Yes Yes -Procedure Performed Yes Yes Yes -Type of Procedure Debridement Debridement Debridement -Clinical Debridement Subcutaneous Subcutaneous Subcutaneous -Tissue Removed Subcutaneous Subcutaneous Subcutaneous -Post Debridement (cm) - Length 1.0 0.8 0.8 -Post Debridement (cm) - Width 3.0 2.5 2.4 -Post Debridement (cm) - Depth 3.1 2.7 2.7 -Total Square (Post) (cm) 3.00 2.00 1.92 -Area of Debridement (cm) - Length 1.0 0.8 0.8 -Area of Debridement (cm) - Width 3.0 2.5 2.4 -Total Square (Area) (cm) 3.00 2.00 1.92 -Tunneling No Yes Yes -Tunneling Position (O'clock) 9 3 -Tunneling Distance (cm) 8.0 4.5 -Tunneling Position #2 (O'clock) 3 9 -Tunneling Distance #2 (cm) 3.0 8.3 -Undermining/Tunneling No No No -Circular Undermining No No No -Wound/Ulcer Outcome Not Healed Not Healed Not Healed -Ulcer Cleansing Rinsed/ Rinsed/ Rinsed/ Irrigated with Irrigated with Irrigated with Saline Saline Saline -Foul Odor after Cleansing No No No -Bioengineered Tissue No No No -Bleeding Controlled with Pressure Pressure Pressure -Treatment Response Procedure Procedure Procedure Tolerated Well Tolerated Well Tolerated Well -Offloading No No No -Debridement - Subq, 1st 20sq cm No Yes Yes #6 right lower ABD -Time 09:55 10:05 10:11 -Correct Patient Yes Yes Yes -Correct Side, Site, Position Yes Yes Yes -Correct Procedure Yes Yes Yes -Procedure Performed Yes Yes No -Type of Procedure Debridement Debridement -Clinical Debridement Subcutaneous Subcutaneous -Tissue Removed Subcutaneous Subcutaneous -Post Debridement (cm) - Length 0.4 0.3 0 -Post Debridement (cm) - Width 3.6 3.4 0 -Post Debridement (cm) - Depth 0.1 0.1 0 -Total Square (Post) (cm) 1.44 1.02 0 -Area of Debridement (cm) - Length 0.4 0.3 -Area of Debridement (cm) - Width 3.6 3.4 -Total Square (Area) (cm) 1.44 1.02 -Tunneling No No -Undermining/Tunneling No No -Circular Undermining No No -Wound/Ulcer Outcome Not Healed Not Healed Healed- Epithelialized -Ulcer Cleansing Rinsed/ Rinsed/ Irrigated with Irrigated with Saline Saline -Foul Odor after Cleansing No No -Bioengineered Tissue No No -Bleeding Controlled with Pressure Pressure -Treatment Response Procedure Procedure Tolerated Well Tolerated Well -Offloading No No -Debridement - Subq, 1st 20sq cm No No #5 RIGHT BREAST -Time 09:55 10:11 10:17 -Correct Patient Yes Yes Yes -Correct Side, Site, Position Yes Yes Yes -Correct Procedure Yes Yes Yes -Procedure Performed Yes Yes No -Type of Procedure Debridement Debridement -Clinical Debridement Subcutaneous Subcutaneous -Tissue Removed Subcutaneous Subcutaneous -Post Debridement (cm) - Length 0.7 0.4 0 -Post Debridement (cm) - Width 1.2 1.0 0 -Post Debridement (cm) - Depth 0.1 0.1 0 -Total Square (Post) (cm) 0.84 0.40 0 -Area of Debridement (cm) - Length 0.7 0.4 -Area of Debridement (cm) - Width 1.2 1.0 -Total Square (Area) (cm) 0.84 0.40 -Tunneling No No No -Undermining/Tunneling No No No -Circular Undermining No No No -Wound/Ulcer Outcome Not Healed Not Healed Healed- Epithelialized -Ulcer Cleansing Rinsed/ Rinsed/ Irrigated with Irrigated with Saline Saline -Foul Odor after Cleansing No No -Bioengineered Tissue No No -Bleeding Controlled with Pressure Pressure -Treatment Response Procedure Procedure Tolerated Well Tolerated Well -Offloading No No -Debridement - Subq, 1st 20sq cm Yes No #4 Lower Mid Back -Time 09:55 10:11 10:19 -Correct Patient Yes Yes Yes -Correct Side, Site, Position Yes Yes Yes -Correct Procedure Yes Yes Yes -Procedure Performed Yes Yes No -Type of Procedure Debridement Debridement -Clinical Debridement Subcutaneous Subcutaneous -Tissue Removed Subcutaneous Subcutaneous -Post Debridement (cm) - Length 1.5 0.1 0 -Post Debridement (cm) - Width 0.7 0.1 0 -Post Debridement (cm) - Depth 0.1 0.1 0 -Total Square (Post) (cm) 1.05 0.01 0 -Area of Debridement (cm) - Length 1.5 0.1 -Area of Debridement (cm) - Width 0.7 0.1 -Total Square (Area) (cm) 1.05 0.01 -Tunneling No No -Undermining/Tunneling No No -Circular Undermining No No -Wound/Ulcer Outcome Not Healed Not Healed Healed- Epithelialized -Ulcer Cleansing Rinsed/ Rinsed/ Irrigated with Irrigated with Saline Saline -Foul Odor after Cleansing No No -Bioengineered Tissue No No -Bleeding Controlled with Pressure Pressure -Treatment Response Procedure Procedure Tolerated Well Tolerated Well -Offloading No No -Debridement - Subq, 1st 20sq cm No No #3 Upper Mid Back -Time 09:55 10:11 10:19 -Correct Patient Yes Yes Yes -Correct Side, Site, Position Yes Yes Yes -Correct Procedure Yes Yes Yes -Procedure Performed Yes Yes No -Type of Procedure Debridement Debridement -Clinical Debridement Subcutaneous Subcutaneous -Tissue Removed Subcutaneous Subcutaneous -Post Debridement (cm) - Length 0.8 0.9 0 -Post Debridement (cm) - Width 0.2 0.2 0 -Post Debridement (cm) - Depth 0.2 0.1 0 -Total Square (Post) (cm) 0.16 0.18 0 -Area of Debridement (cm) - Length 0.8 0.9 -Area of Debridement (cm) - Width 0.2 0.2 -Total Square (Area) (cm) 0.16 0.18 -Tunneling No No -Undermining/Tunneling No No -Circular Undermining No No -Wound/Ulcer Outcome Not Healed Not Healed Healed- Epithelialized -Ulcer Cleansing Rinsed/ Rinsed/ Irrigated with Irrigated with Saline Saline -Foul Odor after Cleansing No No -Bioengineered Tissue No No -Bleeding Controlled with Pressure Pressure -Treatment Response Procedure Procedure Tolerated Well Tolerated Well -Offloading No No -Debridement - Subq, 1st 20sq cm No No #2 Mid abd/Bellybutton -Time :55 10:12 10:20 -Correct Patient Yes Yes Yes -Correct Side, Site, Position Yes Yes Yes -Correct Procedure Yes Yes Yes -Procedure Performed Yes Yes Yes -Type of Procedure Debridement Debridement Debridement -Clinical Debridement Subcutaneous Subcutaneous Subcutaneous -Tissue Removed Subcutaneous Subcutaneous Subcutaneous -Post Debridement (cm) - Length 2.4 0.1 0.1 -Post Debridement (cm) - Width 0.1 0.1 0.1 -Post Debridement (cm) - Depth 1.7 0.1 0.1 -Total Square (Post) (cm) 0.24 0.01 0.01 -Area of Debridement (cm) - Length 2.4 0.1 0.1 -Area of Debridement (cm) - Width 0.1 0.1 0.1 -Total Square (Area) (cm) 0.24 0.01 0.01 -Tunneling No Yes No -Tunneling Position (O'clock) 6 -Tunneling Distance (cm) 3.5 -Undermining/Tunneling No No No -Circular Undermining No No No -Wound/Ulcer Outcome Not Healed Not Healed Not Healed -Ulcer Cleansing Rinsed/ Rinsed/ Rinsed/ Irrigated with Irrigated with Irrigated with Saline Saline Saline -Foul Odor after Cleansing No No No -Bioengineered Tissue No No No -Bleeding Controlled with Pressure Pressure Pressure -Treatment Response Procedure Procedure Procedure Tolerated Well Tolerated Well Tolerated Well -Offloading No No No -Debridement - Subq, 1st 20sq cm No No No #1 Lower Abd -Time 09:55 -Correct Patient Yes -Correct Side, Site, Position Yes -Correct Procedure Yes -Procedure Performed No -Wound/Ulcer Outcome Converted Pain Scale: 0-10 Numeric Is Patient Pain Free? Yes Yes Yes 09/02/21 09/09/21 10:34 09:53 Wound Center Nurse 2 #7 left lower ABD -Time 10:34 09:53 -Correct Patient Yes Yes -Correct Side, Site, Position Yes Yes -Correct Procedure Yes Yes -Procedure Performed Yes Yes -Type of Procedure Debridement Debridement -Clinical Debridement Subcutaneous Subcutaneous -Tissue Removed Subcutaneous Subcutaneous -Post Debridement (cm) - Length 0.9 0.4 -Post Debridement (cm) - Width 2.0 1.5 -Post Debridement (cm) - Depth 3.0 3.0 -Total Square (Post) (cm) 1.80 0.60 -Area of Debridement (cm) - Length 0.9 0.4 -Area of Debridement (cm) - Width 2.0 1.5 -Total Square (Area) (cm) 1.80 0.60 -Tunneling Yes Yes -Tunneling Position (O'clock) 3 3 -Tunneling Distance (cm) 1.8 0.7 -Tunneling Position #2 (O'clock) 9 9 -Tunneling Distance #2 (cm) 9.5 6.6 -Undermining/Tunneling Yes No -Circular Undermining No No -Wound/Ulcer Outcome Not Healed Not Healed -Ulcer Cleansing Rinsed/ Rinsed/ Irrigated with Irrigated with Saline Saline -Foul Odor after Cleansing No No -Bioengineered Tissue No No -Bleeding Controlled with Pressure Pressure -Treatment Response Procedure Procedure Tolerated Well Tolerated Well -Offloading No No -Debridement - Subq, 1st 20sq cm Yes Yes #6 right lower ABD -Time -Correct Patient -Correct Side, Site, Position -Correct Procedure -Procedure Performed -Type of Procedure -Clinical Debridement -Tissue Removed -Post Debridement (cm) - Length -Post Debridement (cm) - Width -Post Debridement (cm) - Depth -Total Square (Post) (cm) -Area of Debridement (cm) - Length -Area of Debridement (cm) - Width -Total Square (Area) (cm) -Tunneling -Undermining/Tunneling -Circular Undermining -Wound/Ulcer Outcome -Ulcer Cleansing -Foul Odor after Cleansing -Bioengineered Tissue -Bleeding Controlled with -Treatment Response -Offloading -Debridement - Subq, 20sq cm #5 RIGHT BREAST -Time -Correct Patient -Correct Side, Site, Position -Correct Procedure -Procedure Performed -Type of Procedure -Clinical Debridement -Tissue Removed -Post Debridement (cm) - Length -Post Debridement (cm) - Width -Post Debridement (cm) - Depth -Total Square (Post) (cm) -Area of Debridement (cm) - Length -Area of Debridement (cm) - Width -Total Square (Area) (cm) -Tunneling -Undermining/Tunneling -Circular Undermining -Wound/Ulcer Outcome -Ulcer Cleansing -Foul Odor after Cleansing -Bioengineered Tissue -Bleeding Controlled with -Treatment Response -Offloading -Debridement - Subq, 20sq cm #4 Lower Mid Back -Time -Correct Patient -Correct Side, Site, Position -Correct Procedure -Procedure Performed -Type of Procedure -Clinical Debridement -Tissue Removed -Post Debridement (cm) - Length -Post Debridement (cm) - Width -Post Debridement (cm) - Depth -Total Square (Post) (cm) -Area of Debridement (cm) - Length -Area of Debridement (cm) - Width -Total Square (Area) (cm) -Tunneling -Undermining/Tunneling -Circular Undermining -Wound/Ulcer Outcome -Ulcer Cleansing -Foul Odor after Cleansing -Bioengineered Tissue -Bleeding Controlled with -Treatment Response -Offloading -Debridement - Subq, 20sq cm #3 Upper Mid Back -Time -Correct Patient -Correct Side, Site, Position -Correct Procedure -Procedure Performed -Type of Procedure -Clinical Debridement -Tissue Removed -Post Debridement (cm) - Length -Post Debridement (cm) - Width -Post Debridement (cm) - Depth -Total Square (Post) (cm) -Area of Debridement (cm) - Length -Area of Debridement (cm) - Width -Total Square (Area) (cm) -Tunneling -Undermining/Tunneling -Circular Undermining -Wound/Ulcer Outcome -Ulcer Cleansing -Foul Odor after Cleansing -Bioengineered Tissue -Bleeding Controlled with -Treatment Response -Offloading -Debridement - Subq, 1st 20sq cm #2 Mid abd/Bellybutton -Time 10:35 09:53 -Correct Patient Yes Yes -Correct Side, Site, Position Yes Yes -Correct Procedure Yes Yes -Procedure Performed Yes Yes -Type of Procedure Debridement Debridement -Clinical Debridement Subcutaneous Subcutaneous -Tissue Removed Subcutaneous Subcutaneous -Post Debridement (cm) - Length 0.1 0.1 -Post Debridement (cm) - Width 0.1 0.1 -Post Debridement (cm) - Depth 0.1 0.1 -Total Square (Post) (cm) 0.01 0.01 -Area of Debridement (cm) - Length 0.1 0.1 -Area of Debridement (cm) - Width 0.1 0.1 -Total Square (Area) (cm) 0.01 0.01 -Tunneling Yes Yes -Tunneling Position (O'clock) 6 6 -Tunneling Distance (cm) 2.5 1.8 -Undermining/Tunneling No No -Circular Undermining No No -Wound/Ulcer Outcome Not Healed Not Healed -Ulcer Cleansing Rinsed/ Rinsed/ Irrigated with Irrigated with Saline Saline -Foul Odor after Cleansing No No -Bioengineered Tissue No No -Bleeding Controlled with Pressure Pressure -Treatment Response Procedure Procedure Tolerated Well Tolerated Well -Offloading No No -Debridement - Subq, 1st 20sq cm No No #1 Lower Abd -Time -Correct Patient -Correct Side, Site, Position -Correct Procedure -Procedure Performed -Wound/Ulcer Outcome Pain Scale: 0-10 Numeric Is Patient Pain Free? Yes Yes WC - Nurse 3 - General Ulcer D/C NN Start: 08/12/21 09:54 Freq: Status: Active Protocol: Activity Type Activity Date Activity User E-Sign Co-Sign Detail Recorded Client Recorded Date Recorded By Document 08/19/21 12:00 DL [id number] 08/19/21 12:04 DL Edit Result 08/19/21 12:00 DL (1) [id number] 08/19/21 15:54 PL Document 08/26/21 10:51 BMF [id number] 08/26/21 10:52 BMF Document 08/30/21 08:21 KR [id number] 08/30/21 08:24 KR Edit Result 08/30/21 08:21 KR (2) [id number] 08/31/21 07:16 PL Document 09/02/21 11:08 DL [id number] 09/02/21 11:09 DL Edit Result 09/02/21 11:08 DL (3) [id number] 09/02/21 16:21 PL Edit Result 09/02/21 11:08 DL (4) [id number] 09/03/21 07:10 PL Document 09/06/21 11:40 BMF [id number] 09/06/21 11:42 BMF (1) #7 left lower ABD - NPWT Application Charge NPWT </= 50 sq cm => NPWT & Debridement ($) => (nc) (2) #7 left lower ABD - Foul Odor after Cleansing => No - Negative Pressure Wound Therapy => Continue - NPWT Application Charge => NPWT > 50 sq cm ($ => ) (3) #7 left lower ABD - NPWT Application Charge NPWT </= 50 sq cm => NPWT & Debridement ($) => (nc) (4) #2 Mid abd/Bellybutton - NPWT Application Charge NPWT </= 50 sq cm => NPWT - Multiple ($) => Locations 08/19/21 08/26/21 08/30/21 12:00 10:51 08:21 Wound Care Nurse 3 #7 left lower ABD -Ulcer Cleansing Soap and Water Rinsed/ Soap and Water Irrigated with Saline -Foul Odor after Cleansing No No No -Negative Pressure Wound Therapy Continue Continue Continue -Setting (mmHg) 150 150 150 -Negative Pressure is Continuous Continuous Continuous -Other Dressing -NPWT Application Charge NPWT & NPWT & NPWT > 50 sq cm Debridement (nc Debridement (nc ($) ) ) #6 right lower ABD -Ulcer Cleansing Soap and Water -Foul Odor after Cleansing No -Primary Dressing Applied Promogran -Primary Dressing Covered/Secured with Dry Gauze, Secured with Tape -Promogran 1 #5 RIGHT BREAST -Ulcer Cleansing Soap and Water -Foul Odor after Cleansing No -Primary Dressing Applied NonAdherent Contact Layer -Other Dressing promogran -Primary Dressing Covered/Secured with Dry Gauze, Secured with Tape #4 Lower Mid Back -Ulcer Cleansing Soap and Water -Foul Odor after Cleansing No -Other Dressing promogran -Primary Dressing Covered/Secured with Dry Gauze, Secured with Tape #3 Upper Mid Back -Ulcer Cleansing Not Cleansed -Foul Odor after Cleansing No -Other Dressing promogran -Primary Dressing Covered/Secured with Dry Gauze, Secured with Tape #2 Mid abd/Bellybutton -Ulcer Cleansing Soap and Water Rinsed/ Rinsed/ Irrigated with Irrigated with Saline Saline -Foul Odor after Cleansing No No -Negative Pressure Wound Therapy Continue Continue -Setting (mmHg) 150 150 150 -Negative Pressure is Continuous Continuous Continuous -Other Dressing -NPWT Application Charge NPWT </= 50 sq NPWT & cm ($) Debridement (nc ) Treatment Response Procedure Procedure Tolerated Well Tolerated Well Vital Signs Temperature (97.8 F-99.1 F) 97.0 F L Temperature Source Temporal Pulse Rate (60-100) 61 Pulse Location Monitor Blood Pressure (90/60-120/80) 128/81 H Blood Pressure Mean (mm Hg) 96 Source Monitor Position Semi-Fowlers Blood Pressure Location Right Arm Pain Scale: 0-10 Numeric Is Patient Pain Free? Yes Yes Yes WC - Visit Discharge Discharge Condition Stable Stable Stable Ambulatory Status Ambulatory Ambulatory Ambulatory Transportation Private Auto Private Auto Accompanied by family Facility Type Home Health Orders Sent Yes 09/02/21 09/06/21 11:08 11:40 Wound Care Nurse 3 #7 left lower ABD -Ulcer Cleansing Soap and Water Soap and Water -Foul Odor after Cleansing No -Negative Pressure Wound Therapy Continue Continue -Setting (mmHg) 150 150 -Negative Pressure is Continuous Continuous -Other Dressing VAC PER DL LPNF -NPWT Application Charge NPWT & NPWT </= 50 sq Debridement (nc cm ($) ) #6 right lower ABD -Ulcer Cleansing -Foul Odor after Cleansing -Primary Dressing Applied -Primary Dressing Covered/Secured with -Promogran #5 RIGHT BREAST -Ulcer Cleansing -Foul Odor after Cleansing -Primary Dressing Applied -Other Dressing -Primary Dressing Covered/Secured with #4 Lower Mid Back -Ulcer Cleansing -Foul Odor after Cleansing -Other Dressing -Primary Dressing Covered/Secured with #3 Upper Mid Back -Ulcer Cleansing -Foul Odor after Cleansing -Other Dressing -Primary Dressing Covered/Secured with #2 Mid abd/Bellybutton -Ulcer Cleansing Soap and Water Soap and Water -Foul Odor after Cleansing No No -Negative Pressure Wound Therapy Continue Continue -Setting (mmHg) 150 150 -Negative Pressure is Continuous Continuous -Other Dressing 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 Yes Yes WC - Visit Discharge Discharge Condition Stable Stable Ambulatory Status Ambulatory Ambulatory Transportation Private Auto Private Auto Accompanied by Facility Type Orders Sent Assessment/Plan Assessment/Plan (1) Surgical wound breakdown: CODE(S): T81.31XA - Disruption of external operation (surgical) wound, not elsewhere classified, initial encounter QUALIFIERS: Encounter type: initial encounter Qualified Code(s): T81.31XA - Disruption of external operation (surgical) wound, not elsewhere classified, initial encounter (2) Non-healing surgical wound: CODE(S): T81.89XA - Other complications of procedures, not elsewhere classified, initial encounter QUALIFIERS: Encounter type: initial encounter Qualified Code(s): T81.89XA - Other complications of procedures, not elsewhere classified, initial encounter PLAN: Continues to show good improvement. Debridement done as documented above, procedure was well-tolerated. Continue wound VAC at 150 mmHg. Come in for a nurse visit on Monday for change. Increased protein intake, vitamin C and zinc recommended. She voiced understanding. Her questions were answered and she was advised to call with any further questions or concerns. Follow-up in a week. This note was generated with [employer] dictation software. It may contain incorrect words, spelling, and punctuation that were not noted in checking the note before signing.
== END 2021-09-09 23:59 | disposition home or self-care (01) ==
LOC: WC 09:30
PROVIDERS: Visit Provider Internal Medicine
DX: T81.89XA Other complications of procedures, not elsewhere classified, initial encounter (principal); T81.31XA Disruption of external operation (surgical) wound, not elsewhere classified, initial encounter; Y83.8 Other surgical procedures as the cause of abnormal reaction of the patient, or of later complication, without mention of misadventure at the time of the procedure
CPT/HCPCS: 11042; 97605 ×2; 87070; 87075; 87077; 87186; 87205; 97606

== ENCOUNTER 2021-10-07 09:30 | Outpatient (RCR) | payer MEDICAID, SELFPAY ==
[2021-09-10 00:42] VITALS: BP 142/87; PULSE 66; RESP 18; TEMP 36.1; BMI 28.4
[2021-09-13 08:41] VITALS: BP 143/63; PULSE 73; RESP 18; TEMP 36; BMI 28.4
[2021-09-16 09:23] VITALS: BP 132/85; PULSE 64; RESP 18; TEMP 36.6; BMI 28.4
--- NOTE | 2021-09-16 09:58 | PN.PCM_ITS ---
History of Present Illness Date of Service: 09/16/21 Chief Complaint: Surgical wound break down History of Wound: Ms. Quintero is a 35-year-old who presents to the wound center due to surgical wound breakdown. Had extensive surgery done in June to remove excess skin following weight loss from bariatric surgery. Surgery was done in [place]. Surgery was uneventful and for the most part has done really well post surgery. Had some areas of wound breakdown. Has been applying Medihoney and Aquacel without any significant improvement. Minimal clear with blood tingled drainage. She was referred here by her primary care physician. She denies any history of diabetes mellitus, tobacco or alcohol abuse. Feels well otherwise. Progress of Wound: Overall stable. Tolerating wound VAC well. Currently at 150 mmHg. She states that drainage is improving. Subjective Subjective No new concerns at this time. Objective Data Objective Data Vital Signs: Vital Signs Temp Pulse Resp BP 97.8 F 64 18 132/85 H 09/16/21 09:23 09/16/21 09:23 09/16/21 09:23 09/16/21 09:23 Weight: 160 lb 11.834 oz Body Mass Index (BMI) 28.4 Charges/Coding Procedures Integumentary 111xxx-113xx: [id number] Hollie subq tissue 20 sq cm/< Physical Exam Const alert, oriented x3 and no apparent distress General Appearance: cooperative, comfortable, well kempt and well developed HEENT normocephalic and head/scalp atraumatic Head and Scalp: normal to inspection and normocephalic Eyes EOMs intact bilaterally General Eye: normal appearance of both eyes Neck full ROM General: normal visual inspection Resp normal respiratory effort Effort and Inspection: able to speak in complete sentences Skin Wounds: wounds noted Neuro oriented x3, CN's II-XII intact bilaterally, moves all extremities and no focal motor deficits Psych mental status grossly normal Appearance: grossly normal Attitude: calm Activity / Motor Behavior: appropriate eye contact Speech: normal speech Thought Process: normal thought process Debridement Note Debridement Note Wound debrided: Lower abdomen (left) Type of Debridement: Excisional debridement Anesthesia Used: 4% Lidocaine Solution Depth: Down to and including healthy tissue and in the subcutaneous layer Percentage of wound debrided: 100 Instrument Used: 5mm curette Tissue Removed: Slough and devitalized tissue Severity: Fat Layer Exposed Amount of bleeding with debridement: Mild Bleeding Controlled with: Pressure Patient tolerated procedure: Patient tolerated procedure well Post-Debridement Measurements and Additional Note: Post-Debridement Measurements/Treatment - Nurse 1 - General Ulcer Assessment Start: 09/13/21 08:37 Freq: Status: Active Protocol: KANG Activity Type Activity Date Activity User E-Sign Co-Sign Detail Recorded Client Recorded Date Recorded By Document 09/13/21 08:41 DL [id number] 09/13/21 09:05 DL Document 09/16/21 09:23 JF [id number] 09/16/21 09:35 JF 09/13/21 09/16/21 08:41 09:23 WC - Today's Visit Information Type of service Nurse-only Follow-up Visit Visit (Physician/INSURANCE ASSISTANT ) Arrival Mode Ambulatory Ambulatory Transfer Assistance None Patient Identification Verified (Name & Yes Yes ) Patient Requires Transmission-Based No No Precautions Height and Weight Body Mass Index (BMI) 28.4 28.4 BMI Classification Overweight Overweight Vital Signs Temperature (97.8 F-99.1 F) 96.8 F L 97.8 F Temperature Source Temporal Temporal Pulse Rate (60-100) 73 64 Pulse Location Monitor Monitor Respiratory Rate (12-18) 18 18 Respiratory rate source Observation Observation Blood Pressure (90/60-120/80) 143/63 H 132/85 H Blood Pressure Mean (mm Hg) 89 100 Source Monitor Monitor Position Semi-Fowlers Blood Pressure Location Left Arm History Since Last Visit- (Skip if this is Patient's initial visit) Have you changed medications since your No No last visit? Any new allergies or adverse reactions No No Had a fall/change in ADL's that may No No increase risk of falls Signs or symptoms of abuse and/or No No neglect since last visit Have you been in the hospital since your No No last visit? Has dressing in place as prescribed Yes Yes Has compression in place as prescribed Yes N/A Has offloadiing in place as prescribed N/A N/A Experienced any changes in pain level or No No management Left Footwear Regular Shoe Right Footwear Regular Shoe Pain Scale: 0-10 Numeric Is Patient Pain Free? Yes Yes [facility] Nurse 1 - General Ulcer Measurement Start: 09/13/21 08:37 Freq: Status: Active Protocol: Activity Type Activity Date Activity User E-Sign Co-Sign Detail Recorded Client Recorded Date Recorded By Document 09/13/21 08:41 DL [id number] 09/13/21 09:05 DL Document 09/16/21 09:23 JF [id number] 09/16/21 09:35 JF 09/13/21 09/16/21 08:41 09:23 Wound Center Nurse 1 #7 left lower ABD -Combined with other wound No -Current Size (cm) - Length 0.6 -Current Size (cm) - Width 0.9 -Current Size (cm) - Depth 2.4 -Total Square Cm 0.54 -Photo Taken No No -Epithelialization Medium 34-66% -Tunneling Yes -Tunneling Position (O'clock) 9 -Tunneling Distance (cm) 4.7 -Undermining/Tunneling No -Circular Undermining No -Exudate Amt Large Medium -Exudate Type Serosanguineous Serosanguineous -Wound Margin Distinct, Flat & Intact Outline Attached -Granulation Amt Medium (34-66%) Large (67-100%) -Granulation Quality Red Red -Slough/Fibrin Yes -Necrosis Amt None Present (0 Small (1-33%) %) -Necrotic Tissue Type Adherent Slough -Structure Exposed N/A N/A -Texture (Anca-wound Skin Appearance) Scarring Assessed, Excoriation -Moisture (Anca-wound Skin Appearance) No Abnormality Dry/Scaly -Color (Anca-wound Skin Appearance) No Abnormality Assessed -Temperature (Anca-wound Skin No Abnormality No Abnormality Appearance) (Pt Warm) (Pt Warm) -Tenderness on Palpation (Anca-wound No Skin Appearance) -Ulcer Cleansing Soap and Water Wound Cleanser -Foul Odor after Cleansing No No -Anesthetic Used 4% Lidocaine Solution #2 Mid abd/Bellybutton -Combined with other wound No -Current Size (cm) - Length 0.6 -Current Size (cm) - Width 0.3 -Current Size (cm) - Depth 0.9 -Total Square Cm 0.18 -Photo Taken No No -Epithelialization Small 1-33% -Tunneling Yes -Tunneling Position (O'clock) 6 -Tunneling Distance (cm) 1 -Undermining/Tunneling No -Circular Undermining No -Exudate Amt Large Medium -Exudate Type Serosanguineous Serosanguineous -Wound Margin Distinct, Flat & Intact Outline Attached -Granulation Amt Medium (34-66%) Large (67-100%) -Granulation Quality Red Red -Slough/Fibrin Yes -Necrosis Amt Small (1-33%) -Necrotic Tissue Type Adherent Slough -Structure Exposed N/A -Texture (Anca-wound Skin Appearance) Scarring,Rash Assessed, Excoriation -Moisture (Anca-wound Skin Appearance) Assessed,Dry/ Scaly -Color (Anca-wound Skin Appearance) No Abnormality Assessed -Temperature (Anca-wound Skin No Abnormality No Abnormality Appearance) (Pt Warm) (Pt Warm) -Tenderness on Palpation (Anca-wound No No Skin Appearance) -Ulcer Cleansing Soap and Water Wound Cleanser -Foul Odor after Cleansing No -Anesthetic Used 4% Lidocaine Solution Lower Limb Edema Present NA WC - Nurse 2 - General Ulcer CM Notes Start: 09/13/21 08:37 Freq: Status: Active Protocol: Activity Type Activity Date Activity User E-Sign Co-Sign Detail Recorded Client Recorded Date Recorded By Document 09/16/21 09:43 MW [id number] 09/16/21 09:50 MW 09/16/21 09:43 Wound Center Nurse 2 #7 left lower ABD -Time 09:44 -Correct Patient Yes -Correct Side, Site, Position Yes -Correct Procedure Yes -Procedure Performed Yes -Type of Procedure Debridement -Clinical Debridement Subcutaneous -Tissue Removed Subcutaneous -Post Debridement (cm) - Length 0.4 -Post Debridement (cm) - Width 1.5 -Post Debridement (cm) - Depth 2.8 -Total Square (Post) (cm) 0.60 -Area of Debridement (cm) - Length 0.4 -Area of Debridement (cm) - Width 1.5 -Total Square (Area) (cm) 0.60 -Tunneling Yes -Tunneling Position (O'clock) 3 -Tunneling Distance (cm) 0.7 -Tunneling Position #2 (O'clock) 9 -Tunneling Distance #2 (cm) 5.0 -Undermining/Tunneling No -Circular Undermining No -Wound/Ulcer Outcome Not Healed -Ulcer Cleansing Rinsed/ Irrigated with Saline -Foul Odor after Cleansing No -Bioengineered Tissue No -Bleeding Controlled with Pressure -Offloading No -Debridement - Subq, 1st 20sq cm Yes #2 Mid abd/Bellybutton -Time 09:44 -Correct Patient Yes -Correct Side, Site, Position Yes -Correct Procedure Yes -Procedure Performed Yes -Type of Procedure Debridement -Clinical Debridement Subcutaneous -Tissue Removed Subcutaneous -Post Debridement (cm) - Length 0.1 -Post Debridement (cm) - Width 0.1 -Post Debridement (cm) - Depth 0.1 -Total Square (Post) (cm) 0.01 -Area of Debridement (cm) - Length 0.1 -Area of Debridement (cm) - Width 0.1 -Total Square (Area) (cm) 0.01 -Tunneling Yes -Tunneling Position (O'clock) 6 -Tunneling Distance (cm) 2.3 -Undermining/Tunneling No -Circular Undermining No -Wound/Ulcer Outcome Not Healed -Ulcer Cleansing Rinsed/ Irrigated with Saline -Foul Odor after Cleansing No -Bioengineered Tissue No -Bleeding Controlled with Pressure -Treatment Response Procedure Tolerated Well -Offloading No -Debridement - Subq, 1st 20sq cm No Pain Scale: 0-10 Numeric Is Patient Pain Free? Yes WC - Nurse 3 - General Ulcer D/C NN Start: 09/13/21 08:37 Freq: Status: Active Protocol: Activity Type Activity Date Activity User E-Sign Co-Sign Detail Recorded Client Recorded Date Recorded By Document 09/13/21 08:41 DL [id number] 09/13/21 09:05 DL Edit Result 09/13/21 08:41 DL (1) [id number] 09/14/21 06:58 PL Document 09/16/21 09:54 JF [id number] 09/16/21 09:56 JF (1) #2 Mid abd/Bellybutton - NPWT Application Charge NPWT - Multiple => NPWT </= 50 sq cm Locations => ($) 09/13/21 09/16/21 08:41 09:54 Vital Signs Temperature (97.8 F-99.1 F) 96.8 F L Temperature Source Temporal Pulse Rate (60-100) 73 Pulse Location Monitor Respiratory Rate (12-18) 18 Respiratory rate source Observation Blood Pressure (90/60-120/80) 143/63 H Blood Pressure Mean (mm Hg) 89 Source Monitor Pain Scale: 0-10 Numeric Is Patient Pain Free? Yes Yes Wound Care Nurse 3 #7 left lower ABD -Ulcer Cleansing Soap and Water Rinsed/ Irrigated with Saline -Foul Odor after Cleansing No No -Negative Pressure Wound Therapy Continue Continue -Setting (mmHg) 150 150 -Negative Pressure is Continuous Continuous -NPWT Application Charge NPWT - Multiple NPWT & Locations Debridement (nc ) #2 Mid abd/Bellybutton -Ulcer Cleansing Soap and Water Rinsed/ Irrigated with Saline -Foul Odor after Cleansing No No -Negative Pressure Wound Therapy Continue Continue -Setting (mmHg) 150 150 -Negative Pressure is Continuous Continuous -NPWT Application Charge NPWT </= 50 sq NPWT & cm ($) Debridement (nc ) Treatment Response Procedure Tolerated Well WC - Visit Discharge Discharge Condition Stable Stable Ambulatory Status Ambulatory Ambulatory Transportation Private Auto Private Auto Medication Reconcilliation completed & Yes provided to patient/care provider Clinical Summary of Care Provided Yes Notes: Wite foam to White foam tunnel at Med applied to Aabd/ tunneled areas bellybutton to both ulcers. topped with black foam. Assessment/Plan Assessment/Plan (1) Surgical wound breakdown: CODE(S): T81.31XA - Disruption of external operation (surgical) wound, not elsewhere classified, initial encounter QUALIFIERS: Encounter type: initial encounter Qualified Code(s): T81.31XA - Disruption of external operation (surgical) wound, not elsewhere classified, initial encounter (2) Non-healing surgical wound: CODE(S): T81.89XA - Other complications of procedures, not elsewhere classified, initial encounter QUALIFIERS: Encounter type: initial encounter Qualified Code(s): T81.89XA - Other complications of procedures, not elsewhere classified, initial encounter PLAN: Continues to show good improvement. Better granulation. Debridement done as documented above, procedure was well-tolerated. Continue wound VAC at 150 mmHg. Come in for a nurse visit on Monday, and Monday for change. Increased protein intake, vitamin C and zinc recommended. She voiced understanding. Her questions were answered and she was advised to call with any further questions or concerns. Follow-up in 2 weeks. This note was generated with [employer] software. It may contain incorrect words, spelling, and punctuation that were not noted in checking the note before signing.
[2021-09-20 08:41] VITALS: BP 147/84; PULSE 74; TEMP 36.1; BMI 28.4
--- NOTE | 2021-09-20 09:11 | PN.PCM_ITS ---
History of Present Illness Date of Service: 09/20/21 Chief Complaint: Surgical wound break down History of Wound: Ms. Quintero is a 35-year-old who presents to the wound center due to surgical wound breakdown. Had extensive surgery done in June to remove excess skin following weight loss from bariatric surgery. Surgery was done in [place]. Surgery was uneventful and for the most part has done really well post surgery. Had some areas of wound breakdown. Has been applying Medihoney and Aquacel without any significant improvement. Minimal clear with blood tingled drainage. She was referred here by her primary care physician. She denies any history of diabetes mellitus, tobacco or alcohol abuse. Feels well otherwise. Progress of Wound: This is a courtesy visit because the patient came in for a nurse visit for a wound VAC change and she has a very excoriated zaid wound and I was asked to evaluate it. The zaid wound has a very pink, itchy, raised area surrounding the entire ulcer wherever the wound VAC drape was placed. The lower abdominal ulcer has a tunnel at 9 o'clock. The umbilicus ulcer has a small tunnel at 6 o'clock but actually look good. There was a strong odor with the wound VAC. Objective Data Objective Data Vital Signs: Vital Signs Temp Pulse Resp BP 97.0 F L 74 18 147/84 H 09/20/21 08:41 09/20/21 08:41 09/16/21 09:23 09/20/21 08:41 Weight: 160 lb 11.834 oz Body Mass Index (BMI) 28.4 Charges/Coding Multi Select Codes Integumentary Integumentary CPT Codes: 00797 Hollie subq tissue 20 sq cm/< Physical Exam Const alert and oriented x3 General Appearance: cooperative HEENT normocephalic Head and Scalp: atraumatic Resp normal respiratory effort Cardio regular rate GI non-tender Palpation: soft Extremity normal capillary refill Skin Wound Narrative: Lower mid abdominal incisional ulcer is beefy pink with a tunnel at 9 o'clock. There is also an umbilicus separation that has a small amount of undermining at 6 o'clock. Neuro CN's II-XII intact bilaterally Debridement Note Debridement Note Wound debrided: Lower abdominal incision medial ulcer Laterality: Not Applicable Wound Grade/Stage: Stage IV Type of Debridement: Excisional debridement Anesthesia Used: 5% Lidocaine Gel Depth: Down to and including healthy tissue and in the subcutaneous layer Percentage of wound debrided: 100 Instrument Used: 5mm curette Tissue Removed: Nonviable tissue and slough Severity: Fat Layer Exposed Amount of bleeding with debridement: Mild Bleeding Controlled with: Pressure and Compression and gauze Patient tolerated procedure: Patient tolerated procedure well Post-Debridement Measurements and Additional Note: Post-Debridement Measurements/Treatment WC - Nurse 1 - General Ulcer Assessment Start: 09/13/21 08:37 Freq: Status: Active Protocol: KANG Activity Type Activity Date Activity User E-Sign Co-Sign Detail Recorded Client Recorded Date Recorded By Document 09/13/21 08:41 DL [id number] 09/13/21 09:05 DL Document 09/16/21 09:23 JF [id number] 09/16/21 09:35 JF Document 09/20/21 08:41 KR [id number] 09/20/21 08:44 KR 09/13/21 09/16/21 09/20/21 08:41 09:23 08:41 - Today's Visit Information Type of service Nurse-only Follow-up Visit Follow-up Visit Visit (Physician/TANNING DRUM OPERATOR (Physician/TANNING DRUM OPERATOR ) ) Arrival Mode Ambulatory Ambulatory Ambulatory Transfer Assistance None Patient Identification Verified (Name & Yes Yes Yes ) Patient Requires Transmission-Based No No Precautions Height and Weight Body Mass Index (BMI) 28.4 28.4 28.4 BMI Classification Overweight Overweight Overweight Vital Signs Temperature (97.8 F-99.1 F) 96.8 F L 97.8 F 97.0 F L Temperature Source Temporal Temporal Temporal Pulse Rate (60-100) 73 64 74 Pulse Location Monitor Monitor Monitor Respiratory Rate (12-18) 18 18 Respiratory rate source Observation Observation Blood Pressure (90/60-120/80) 143/63 H 132/85 H 147/84 H Blood Pressure Mean (mm Hg) 89 100 105 Source Monitor Monitor Monitor Position Semi-Fowlers Semi-Fowlers Blood Pressure Location Left Arm Left Arm History Since Last Visit- (Skip if this is Patient's initial visit) Have you changed medications since your No No No last visit? Any new allergies or adverse reactions No No No Had a fall/change in ADL's that may No No No increase risk of falls Signs or symptoms of abuse and/or No No No neglect since last visit Have you been in the hospital since your No No No last visit? Has dressing in place as prescribed Yes Yes Yes Has compression in place as prescribed Yes N/A N/A Has offloadiing in place as prescribed N/A N/A N/A Experienced any changes in pain level or No No No management Left Footwear Regular Shoe Regular Shoe Right Footwear Regular Shoe Regular Shoe Pain Scale: 0-10 Numeric Is Patient Pain Free? Yes Yes Yes WC - Nurse 1 - General Ulcer Measurement Start: 09/13/21 08:37 Freq: Status: Active Protocol: Activity Type Activity Date Activity User E-Sign Co-Sign Detail Recorded Client Recorded Date Recorded By Document 09/13/21 08:41 DL [id number] 09/13/21 09:05 DL Document 09/16/21 09:23 JF [id number] 09/16/21 09:35 JF Document 09/20/21 08:41 KR [id number] 09/20/21 08:44 KR 09/13/21 09/16/21 09/20/21 08:41 09:23 08:41 Wound Center Nurse 1 #7 left lower ABD -Combined with other wound No -Current Size (cm) - Length 0.6 0.6 -Current Size (cm) - Width 0.9 1.4 -Current Size (cm) - Depth 2.4 1.6 -Total Square Cm 0.54 0.84 -Photo Taken No No -Epithelialization Medium 34-66% -Tunneling Yes -Tunneling Position (O'clock) 9 9 -Tunneling Distance (cm) 4.7 4.7 -Undermining/Tunneling No -Circular Undermining No -Exudate Amt Large Medium Medium -Exudate Type Serosanguineous Serosanguineous Serosanguineous -Wound Margin Distinct, Flat & Intact Distinct, Outline Outline Attached Attached -Granulation Amt Medium (34-66%) Large (67-100%) Medium (34-66%) -Granulation Quality Red Red Red -Slough/Fibrin Yes -Necrosis Amt None Present (0 Small (1-33%) Medium (34-66%) %) -Necrotic Tissue Type Adherent Slough Adherent Slough -Structure Exposed N/A N/A -Texture (Zaid-wound Skin Appearance) Scarring Assessed, Assessed, Excoriation Scarring -Moisture (Zaid-wound Skin Appearance) No Abnormality Dry/Scaly Assessed, Maceration -Color (Zaid-wound Skin Appearance) No Abnormality Assessed No Abnormality, Assessed -Temperature (Zaid-wound Skin No Abnormality No Abnormality No Abnormality Appearance) (Pt Warm) (Pt Warm) (Pt Warm) -Tenderness on Palpation (Zaid-wound No No Skin Appearance) -Ulcer Cleansing Soap and Water Wound Cleanser Soap and Water -Foul Odor after Cleansing No No No -Anesthetic Used 4% Lidocaine 4% Lidocaine Solution Solution #2 Mid abd/Bellybutton -Combined with other wound No -Current Size (cm) - Length 0.6 0.5 -Current Size (cm) - Width 0.3 0.2 -Current Size (cm) - Depth 0.9 0.6 -Total Square Cm 0.18 0.10 -Photo Taken No No -Epithelialization Small 1-33% -Tunneling Yes -Tunneling Position (O'clock) 6 -Tunneling Distance (cm) 1 -Undermining/Tunneling No -Circular Undermining No -Exudate Amt Large Medium Medium -Exudate Type Serosanguineous Serosanguineous Serosanguineous -Wound Margin Distinct, Flat & Intact Distinct, Outline Outline Attached Attached -Granulation Amt Medium (34-66%) Large (67-100%) Medium (34-66%) -Granulation Quality Red Red Red -Slough/Fibrin Yes -Necrosis Amt Small (1-33%) Medium (34-66%) -Necrotic Tissue Type Adherent Slough Adherent Slough -Structure Exposed N/A -Texture (Zaid-wound Skin Appearance) Scarring,Rash Assessed, Assessed, Excoriation Scarring -Moisture (Zaid-wound Skin Appearance) Assessed,Dry/ Assessed, Scaly Maceration -Color (Zaid-wound Skin Appearance) No Abnormality Assessed No Abnormality, Assessed -Temperature (Zaid-wound Skin No Abnormality No Abnormality No Abnormality Appearance) (Pt Warm) (Pt Warm) (Pt Warm) -Tenderness on Palpation (Zaid-wound No No No Skin Appearance) -Ulcer Cleansing Soap and Water Wound Cleanser Soap and Water -Foul Odor after Cleansing No Yes -Anesthetic Used 4% Lidocaine Solution Lower Limb Edema Present NA WC - Nurse 2 - General Ulcer CM Notes Start: 09/13/21 08:37 Freq: Status: Active Protocol: Activity Type Activity Date Activity User E-Sign Co-Sign Detail Recorded Client Recorded Date Recorded By Document 09/16/21 09:43 MW [id number] 09/16/21 09:50 MW Document 09/20/21 08:59 [id number] 09/20/21 09:00 JF 09/16/21 09/20/21 09:43 08:59 Wound Center Nurse 2 #7 left lower ABD -Time 09:44 08:59 -Correct Patient Yes Yes -Correct Side, Site, Position Yes Yes -Correct Procedure Yes Yes -Procedure Performed Yes Yes -Type of Procedure Debridement Debridement -Clinical Debridement Subcutaneous Subcutaneous -Tissue Removed Subcutaneous Subcutaneous -Post Debridement (cm) - Length 0.4 1.2 -Post Debridement (cm) - Width 1.5 1.6 -Post Debridement (cm) - Depth 2.8 1.8 -Total Square (Post) (cm) 0.60 1.92 -Area of Debridement (cm) - Length 0.4 1.2 -Area of Debridement (cm) - Width 1.5 1.6 -Total Square (Area) (cm) 0.60 1.92 -Tunneling Yes Yes -Tunneling Position (O'clock) 3 9 -Tunneling Distance (cm) 0.7 4.4 -Tunneling Position #2 (O'clock) 9 -Tunneling Distance #2 (cm) 5.0 -Undermining/Tunneling No No -Circular Undermining No No -Wound/Ulcer Outcome Not Healed Not Healed -Ulcer Cleansing Rinsed/ Rinsed/ Irrigated with Irrigated with Saline Saline -Foul Odor after Cleansing No No -Bioengineered Tissue No No -Bleeding Controlled with Pressure Pressure -Treatment Response Procedure Tolerated Well -Offloading No No -Debridement - Subq, 1st 20sq cm Yes Yes #2 Mid abd/Bellybutton -Time 09:44 -Correct Patient Yes No -Correct Side, Site, Position Yes No -Correct Procedure Yes No -Procedure Performed Yes No -Type of Procedure Debridement -Clinical Debridement Subcutaneous -Tissue Removed Subcutaneous -Post Debridement (cm) - Length 0.1 -Post Debridement (cm) - Width 0.1 -Post Debridement (cm) - Depth 0.1 -Total Square (Post) (cm) 0.01 -Area of Debridement (cm) - Length 0.1 -Area of Debridement (cm) - Width 0.1 -Total Square (Area) (cm) 0.01 -Tunneling Yes -Tunneling Position (O'clock) 6 -Tunneling Distance (cm) 2.3 -Undermining/Tunneling No -Circular Undermining No -Wound/Ulcer Outcome Not Healed Not Healed -Ulcer Cleansing Rinsed/ Irrigated with Saline -Foul Odor after Cleansing No -Bioengineered Tissue No -Bleeding Controlled with Pressure -Treatment Response Procedure Tolerated Well -Offloading No -Debridement - Subq, 1st 20sq cm No Pain Scale: 0-10 Numeric Is Patient Pain Free? Yes Yes WC - Nurse 3 - General Ulcer D/C NN Start: 09/13/21 08:37 Freq: Status: Active Protocol: Activity Type Activity Date Activity User E-Sign Co-Sign Detail Recorded Client Recorded Date Recorded By Document 09/13/21 08:41 DL [id number] 09/13/21 09:05 DL Edit Result 09/13/21 08:41 DL (1) [id number] 09/14/21 06:58 PL Document 09/16/21 09:54 JF [id number] 09/16/21 09:56 JF Edit Result 09/16/21 09:54 JF (2) [id number] 09/16/21 14:34 PL Document 09/20/21 08:41 KR [id number] 09/20/21 08:44 KR (1) #2 Mid abd/Bellybutton - NPWT Application Charge NPWT - Multiple => NPWT </= 50 sq cm Locations => ($) (2) #2 Mid abd/Bellybutton - NPWT Application Charge NPWT & Debridement => NPWT - Multiple (nc) => Locations 09/13/21 09/16/21 09/20/21 08:41 09:54 08:41 Vital Signs Temperature (97.8 F-99.1 F) 96.8 F L 97.0 F L Temperature Source Temporal Temporal Pulse Rate (60-100) 73 74 Pulse Location Monitor Monitor Respiratory Rate (12-18) 18 Respiratory rate source Observation Blood Pressure (90/60-120/80) 143/63 H 147/84 H Blood Pressure Mean (mm Hg) 89 105 Source Monitor Monitor Position Semi-Fowlers Blood Pressure Location Left Arm Pain Scale: 0-10 Numeric Is Patient Pain Free? Yes Yes Yes Wound Care Nurse 3 #7 left lower ABD -Ulcer Cleansing Soap and Water Rinsed/ Irrigated with Saline -Foul Odor after Cleansing No No -Negative Pressure Wound Therapy Continue Continue -Setting (mmHg) 150 150 -Negative Pressure is Continuous Continuous -NPWT Application Charge NPWT - Multiple NPWT & Locations Debridement (nc ) #2 Mid abd/Bellybutton -Ulcer Cleansing Soap and Water Rinsed/ Irrigated with Saline -Foul Odor after Cleansing No No -Negative Pressure Wound Therapy Continue Continue -Setting (mmHg) 150 150 -Negative Pressure is Continuous Continuous -NPWT Application Charge NPWT </= 50 sq NPWT - Multiple cm ($) Locations Treatment Response Procedure Tolerated Well WC - Visit Discharge Discharge Condition Stable Stable Ambulatory Status Ambulatory Ambulatory Transportation Private Auto Private Auto Medication Reconcilliation completed & Yes provided to patient/care provider Clinical Summary of Care Provided Yes Notes: Wite foam to White foam tunnel at Med applied to Aabd/ tunneled areas bellybutton to both ulcers. topped with black foam. Assessment/Plan Assessment/Plan (1) Non-healing surgical wound: CODE(S): T81.89XA - Other complications of procedures, not elsewhere classified, initial encounter QUALIFIERS: Encounter type: initial encounter Qualified Code(s): T81.89XA - Other complications of procedures, not elsewhere classified, initial encounter (2) Surgical wound breakdown: CODE(S): T81.31XA - Disruption of external operation (surgical) wound, not elsewhere classified, initial encounter QUALIFIERS: Encounter type: initial encounter Qualified Code(s): T81.31XA - Disruption of external operation (surgical) wound, not elsewhere classified, initial encounter (3) Yeast infection of the skin: CODE(S): B37.2 - Candidiasis of skin and nail PLAN: This is a courtesy visit because the patient came in for a nurse visit for a wound VAC change and she has a very excoriated zaid wound and I was asked to evaluate it. Patient had an abdominoplasty in June in [place]. After she came home she developed some wound healing issues. The umbilicus ulcer has a small undermining at 6 o'clock. The base of the ulcer looks good. Due to this being a surgically made umbilicus, I will have her take a cotton swab applicator every day to dry it out and then place a piece of Aquacel- Ag in it to absorb any of potential drainage. There is no longer a connection from the umbilicus to her lower abdominal incision. The zaid wound has a very pink, itchy, raised area surrounding the entire ulcer wherever the wound VAC drape was placed. It looks like a yeast infection. The lower abdominal ulcer has a tunnel at 9 o'clock. There was a strong odor with the wound VAC. She had been on Cipro x 7 days after her wound culture on 08/19/21 which was positive for Klebsiella pneumoniae. Since it has been over a month since her wound culture, will obtain a wound culture today. Depending on the results of the culture, it may necessitate the need for treatment with antibiotics. Wound Care - Will take a wound VAC holiday this week to give her zaid wound time to heal. She will place Aquacel - Ag into the lower abdominal incision wound, making sure to pack it into the 9 o'clock tunnel and cover with gauze daily. She will start the Diflucan which should also help her skin irritation. She may wash her skin and the ulcers with soap and water daily and dry well before applying the silver alginate dressing. She will return on Monday to see me for an evaluation of her zaid wound to see if she is able to restart the wound VAC. She will then follow up with Dr. Nash on 09/30/21.
[2021-09-27 08:47] VITALS: BP 139/92; PULSE 71; TEMP 36.6; BMI 28.4
--- NOTE | 2021-09-27 09:15 | PCM.WC.PN ---
History of Present Illness Date of Service: 09/27/21 Chief Complaint: Surgical wound break down History of Wound: Ms. Quintero is a 35-year-old who presents to the wound center due to surgical wound breakdown. Had extensive surgery done in June to remove excess skin following weight loss from bariatric surgery. Surgery was done in [place]. Surgery was uneventful and for the most part has done really well post surgery. Had some areas of wound breakdown. Has been applying Medihoney and Aquacel without any significant improvement. Minimal clear with blood tingled drainage. She was referred here by her primary care physician. She denies any history of diabetes mellitus, tobacco or alcohol abuse. Feels well otherwise. Progress of Wound: This is a courtesy. I saw her last week as a courtesy visit when she came in for a wound VAC change and she had an excoriated zaid wound that looked like yeast and a strong odor. I also did a wound culture. Today her zaid wound is much improved. The red, raised, yeasty rash has resolved with the wound VAC holiday and the diflucan that she was placed on. Her umbilicus is no longer having much drainage, and her lower abdominal incision wound separation looks beefy pink. No debridement was performed today. Objective Data Objective Data Vital Signs: Vital Signs Temp Pulse Resp BP 97.8 F 71 18 139/92 H 09/27/21 08:47 09/27/21 08:47 09/16/21 09:23 09/27/21 08:47 Weight: 160 lb 11.834 oz Body Mass Index (BMI) 28.4 Lab / Micro Data Micro: Microbiology 09/20/21 09:00 Wound Abcess - Abdominal Gram Stain - Final 09/20/21 09:00 Wound Abcess - Abdominal Wound Culture - Final Staphylococcus aureus Corynebacterium jeikeium 09/20/21 09:00 Wound Abcess - Abdominal Anaerobic Culture - Final Anaerobic cocci Prevotella bivia Charges/Coding Visit Charges Office Visits / Consults: [id number] OV L3 Est Physical Exam Const alert and oriented x3 General Appearance: cooperative HEENT normocephalic Head and Scalp: atraumatic Resp normal respiratory effort Cardio regular rate GI non-tender Palpation: soft Extremity normal capillary refill Skin Wound Narrative: Lower abdominal incision had wound separation in the central aspect of the incision. The base of wound is beefy pink. Tunneling has decreased. Zaid wound is no longer excoriated and is clear from rash. Umbilicus has small amount of undermining at 6 o'clock but has minimal drainage. Neuro CN's II-XII intact bilaterally Psych Appearance: grossly normal Debridement Note Debridement Note No debridement was completed: No debridement was completed today Post-Debridement Measurements and Additional Note: Post-Debridement Measurements/Treatment WC - Nurse 1 - General Ulcer Assessment Start: 09/13/21 08:37 Freq: Status: Active Protocol: KANG Activity Type Activity Date Activity User E-Sign Co-Sign Detail Recorded Client Recorded Date Recorded By Document 09/13/21 08:41 DL [id number] 09/13/21 09:05 DL Document 09/16/21 09:23 JF [id number] 09/16/21 09:35 JF Document 09/20/21 08:41 KR [id number] 09/20/21 08:44 KR Document 09/27/21 08:47 KR [id number] 09/27/21 08:49 KR 09/13/21 09/16/21 09/20/21 08:41 09:23 08:41 - Today's Visit Information Type of service Nurse-only Follow-up Visit Follow-up Visit Visit (Physician/RN RESEARCH (Physician/RN RESEARCH ) ) Arrival Mode Ambulatory Ambulatory Ambulatory Transfer Assistance None Patient Identification Verified (Name & Yes Yes Yes ) Patient Requires Transmission-Based No No Precautions Height and Weight Body Mass Index (BMI) 28.4 28.4 28.4 BMI Classification Overweight Overweight Overweight Vital Signs Temperature (97.8 F-99.1 F) 96.8 F L 97.8 F 97.0 F L Temperature Source Temporal Temporal Temporal Pulse Rate (60-100) 73 64 74 Pulse Location Monitor Monitor Monitor Respiratory Rate (12-18) 18 18 Respiratory rate source Observation Observation Blood Pressure (90/60-120/80) 143/63 H 132/85 H 147/84 H Blood Pressure Mean (mm Hg) 89 100 105 Source Monitor Monitor Monitor Position Semi-Fowlers Semi-Fowlers Blood Pressure Location Left Arm Left Arm History Since Last Visit- (Skip if this is Patient's initial visit) Have you changed medications since your No No No last visit? Any new allergies or adverse reactions No No No Had a fall/change in ADL's that may No No No increase risk of falls Signs or symptoms of abuse and/or No No No neglect since last visit Have you been in the hospital since your No No No last visit? Has dressing in place as prescribed Yes Yes Yes Has compression in place as prescribed Yes N/A N/A Has offloadiing in place as prescribed N/A N/A N/A Experienced any changes in pain level or No No No management Left Footwear Regular Shoe Regular Shoe Right Footwear Regular Shoe Regular Shoe Pain Scale: 0-10 Numeric Is Patient Pain Free? Yes Yes Yes 09/27/21 08:47 WC - Today's Visit Information Type of service Nurse-only Visit Arrival Mode Ambulatory Transfer Assistance Patient Identification Verified (Name & Yes ) Patient Requires Transmission-Based Precautions Height and Weight Body Mass Index (BMI) 28.4 BMI Classification Overweight Vital Signs Temperature (97.8 F-99.1 F) 97.8 F Temperature Source Temporal Pulse Rate (60-100) 71 Pulse Location Monitor Respiratory Rate (12-18) Respiratory rate source Blood Pressure (90/60-120/80) 139/92 H Blood Pressure Mean (mm Hg) 107 Source Monitor Position Sitting Blood Pressure Location Right Arm History Since Last Visit- (Skip if this is Patient's initial visit) Have you changed medications since your No last visit? Any new allergies or adverse reactions No Had a fall/change in ADL's that may No increase risk of falls Signs or symptoms of abuse and/or No neglect since last visit Have you been in the hospital since your No last visit? Has dressing in place as prescribed Yes Has compression in place as prescribed N/A Has offloadiing in place as prescribed N/A Experienced any changes in pain level or No management Left Footwear Regular Shoe Right Footwear Regular Shoe Pain Scale: 0-10 Numeric Is Patient Pain Free? Yes - Nurse 1 - General Ulcer Measurement Start: 09/13/21 08:37 Freq: Status: Active Protocol: Activity Type Activity Date Activity User E-Sign Co-Sign Detail Recorded Client Recorded Date Recorded By Document 09/13/21 08:41 DL [id number] 09/13/21 09:05 DL Document 09/16/21 09:23 JF [id number] 09/16/21 09:35 JF Document 09/20/21 08:41 KR [id number] 09/20/21 08:44 KR 09/13/21 09/16/21 09/20/21 08:41 09:23 08:41 Wound Center Nurse 1 #7 left lower ABD -Combined with other wound No -Current Size (cm) - Length 0.6 0.6 -Current Size (cm) - Width 0.9 1.4 -Current Size (cm) - Depth 2.4 1.6 -Total Square Cm 0.54 0.84 -Photo Taken No No -Epithelialization Medium 34-66% -Tunneling Yes -Tunneling Position (O'clock) 9 9 -Tunneling Distance (cm) 4.7 4.7 -Undermining/Tunneling No -Circular Undermining No -Exudate Amt Large Medium Medium -Exudate Type Serosanguineous Serosanguineous Serosanguineous -Wound Margin Distinct, Flat & Intact Distinct, Outline Outline Attached Attached -Granulation Amt Medium (34-66%) Large (67-100%) Medium (34-66%) -Granulation Quality Red Red Red -Slough/Fibrin Yes -Necrosis Amt None Present (0 Small (1-33%) Medium (34-66%) %) -Necrotic Tissue Type Adherent Slough Adherent Slough -Structure Exposed N/A N/A -Texture (Zaid-wound Skin Appearance) Scarring Assessed, Assessed, Excoriation Scarring -Moisture (Zaid-wound Skin Appearance) No Abnormality Dry/Scaly Assessed, Maceration -Color (Zaid-wound Skin Appearance) No Abnormality Assessed No Abnormality, Assessed -Temperature (Zaid-wound Skin No Abnormality No Abnormality No Abnormality Appearance) (Pt Warm) (Pt Warm) (Pt Warm) -Tenderness on Palpation (Zaid-wound No No Skin Appearance) -Ulcer Cleansing Soap and Water Wound Cleanser Soap and Water -Foul Odor after Cleansing No No No -Anesthetic Used 4% Lidocaine 4% Lidocaine Solution Solution #2 Mid abd/Bellybutton -Combined with other wound No -Current Size (cm) - Length 0.6 0.5 -Current Size (cm) - Width 0.3 0.2 -Current Size (cm) - Depth 0.9 0.6 -Total Square Cm 0.18 0.10 -Photo Taken No No -Epithelialization Small 1-33% -Tunneling Yes -Tunneling Position (O'clock) 6 -Tunneling Distance (cm) 1 -Undermining/Tunneling No -Circular Undermining No -Exudate Amt Large Medium Medium -Exudate Type Serosanguineous Serosanguineous Serosanguineous -Wound Margin Distinct, Flat & Intact Distinct, Outline Outline Attached Attached -Granulation Amt Medium (34-66%) Large (67-100%) Medium (34-66%) -Granulation Quality Red Red Red -Slough/Fibrin Yes -Necrosis Amt Small (1-33%) Medium (34-66%) -Necrotic Tissue Type Adherent Slough Adherent Slough -Structure Exposed N/A -Texture (Zaid-wound Skin Appearance) Scarring,Rash Assessed, Assessed, Excoriation Scarring -Moisture (Zaid-wound Skin Appearance) Assessed,Dry/ Assessed, Scaly Maceration -Color (Zaid-wound Skin Appearance) No Abnormality Assessed No Abnormality, Assessed -Temperature (Zaid-wound Skin No Abnormality No Abnormality No Abnormality Appearance) (Pt Warm) (Pt Warm) (Pt Warm) -Tenderness on Palpation (Zaid-wound No No No Skin Appearance) -Ulcer Cleansing Soap and Water Wound Cleanser Soap and Water -Foul Odor after Cleansing No Yes -Anesthetic Used 4% Lidocaine Solution Lower Limb Edema Present NA WC - Nurse 2 - General Ulcer CM Notes Start: 09/13/21 08:37 Freq: Status: Active Protocol: Activity Type Activity Date Activity User E-Sign Co-Sign Detail Recorded Client Recorded Date Recorded By Document 09/16/21 09:43 MW [id number] 09/16/21 09:50 MW Document 09/20/21 08:59 [id number] 09/20/21 09:00 JONATAN 09/16/21 09/20/21 09:43 08:59 Wound Center Nurse 2 #7 left lower ABD -Time 09:44 08:59 -Correct Patient Yes Yes -Correct Side, Site, Position Yes Yes -Correct Procedure Yes Yes -Procedure Performed Yes Yes -Type of Procedure Debridement Debridement -Clinical Debridement Subcutaneous Subcutaneous -Tissue Removed Subcutaneous Subcutaneous -Post Debridement (cm) - Length 0.4 1.2 -Post Debridement (cm) - Width 1.5 1.6 -Post Debridement (cm) - Depth 2.8 1.8 -Total Square (Post) (cm) 0.60 1.92 -Area of Debridement (cm) - Length 0.4 1.2 -Area of Debridement (cm) - Width 1.5 1.6 -Total Square (Area) (cm) 0.60 1.92 -Tunneling Yes Yes -Tunneling Position (O'clock) 3 9 -Tunneling Distance (cm) 0.7 4.4 -Tunneling Position #2 (O'clock) 9 -Tunneling Distance #2 (cm) 5.0 -Undermining/Tunneling No No -Circular Undermining No No -Wound/Ulcer Outcome Not Healed Not Healed -Ulcer Cleansing Rinsed/ Rinsed/ Irrigated with Irrigated with Saline Saline -Foul Odor after Cleansing No No -Bioengineered Tissue No No -Bleeding Controlled with Pressure Pressure -Treatment Response Procedure Tolerated Well -Offloading No No -Debridement - Subq, 1st 20sq cm Yes Yes #2 Mid abd/Bellybutton -Time 09:44 -Correct Patient Yes No -Correct Side, Site, Position Yes No -Correct Procedure Yes No -Procedure Performed Yes No -Type of Procedure Debridement -Clinical Debridement Subcutaneous -Tissue Removed Subcutaneous -Post Debridement (cm) - Length 0.1 -Post Debridement (cm) - Width 0.1 -Post Debridement (cm) - Depth 0.1 -Total Square (Post) (cm) 0.01 -Area of Debridement (cm) - Length 0.1 -Area of Debridement (cm) - Width 0.1 -Total Square (Area) (cm) 0.01 -Tunneling Yes -Tunneling Position (O'clock) 6 -Tunneling Distance (cm) 2.3 -Undermining/Tunneling No -Circular Undermining No -Wound/Ulcer Outcome Not Healed Not Healed -Ulcer Cleansing Rinsed/ Irrigated with Saline -Foul Odor after Cleansing No -Bioengineered Tissue No -Bleeding Controlled with Pressure -Treatment Response Procedure Tolerated Well -Offloading No -Debridement - Subq, 1st 20sq cm No Pain Scale: 0-10 Numeric Is Patient Pain Free? Yes Yes WC - Nurse 3 - General Ulcer D/C NN Start: 09/13/21 08:37 Freq: Status: Active Protocol: Activity Type Activity Date Activity User E-Sign Co-Sign Detail Recorded Client Recorded Date Recorded By Document 09/13/21 08:41 DL [id number] 09/13/21 09:05 DL Edit Result 09/13/21 08:41 DL (1) [id number] 09/14/21 06:58 PL Document 09/16/21 09:54 JF [id number] 09/16/21 09:56 JF Edit Result 09/16/21 09:54 JF (2) [id number] 09/16/21 14:34 PL Document 09/20/21 08:41 KR [id number] 09/20/21 08:44 KR Document 09/20/21 09:16 BMF [id number] 09/20/21 09:16 BMF Document 09/27/21 08:47 KR [id number] 09/27/21 08:49 KR (1) #2 Mid abd/Bellybutton - NPWT Application Charge NPWT - Multiple => NPWT </= 50 sq cm Locations => ($) (2) #2 Mid abd/Bellybutton - NPWT Application Charge NPWT & Debridement => NPWT - Multiple (nc) => Locations 09/13/21 09/16/21 09/20/21 08:41 09:54 08:41 Vital Signs Temperature (97.8 F-99.1 F) 96.8 F L 97.0 F L Temperature Source Temporal Temporal Pulse Rate (60-100) 73 74 Pulse Location Monitor Monitor Respiratory Rate (12-18) 18 Respiratory rate source Observation Blood Pressure (90/60-120/80) 143/63 H 147/84 H Blood Pressure Mean (mm Hg) 89 105 Source Monitor Monitor Position Semi-Fowlers Blood Pressure Location Left Arm Pain Scale: 0-10 Numeric Is Patient Pain Free? Yes Yes Yes Wound Care Nurse 3 #7 left lower ABD -Ulcer Cleansing Soap and Water Rinsed/ Irrigated with Saline -Foul Odor after Cleansing No No -Negative Pressure Wound Therapy Continue Continue -Setting (mmHg) 150 150 -Negative Pressure is Continuous Continuous -Primary Dressing Applied -Primary Dressing Covered/Secured with -Other Covering -NPWT Application Charge NPWT - Multiple NPWT & Locations Debridement (nc ) -Aquacel AG 4x4 #2 Mid abd/Bellybutton -Ulcer Cleansing Soap and Water Rinsed/ Irrigated with Saline -Foul Odor after Cleansing No No -Negative Pressure Wound Therapy Continue Continue -Setting (mmHg) 150 150 -Negative Pressure is Continuous Continuous -Regranex (If Applicable) -Primary Dressing Applied -Primary Dressing Covered/Secured with -Other Covering -NPWT Application Charge NPWT </= 50 sq NPWT - Multiple cm ($) Locations -Aquacel AG 4x4 Treatment Response Procedure Tolerated Well WC - Visit Discharge Discharge Condition Stable Stable Ambulatory Status Ambulatory Ambulatory Transportation [employer] Private [employer] Accompanied by Medication Reconcilliation completed & Yes provided to patient/care provider Clinical Summary of Care Provided Yes Notes: Wite foam to White foam tunnel at Med applied to Aabd/ tunneled areas bellybutton to both ulcers. topped with black foam. 09/20/21 09/27/21 09:16 08:47 Vital Signs Temperature (97.8 F-99.1 F) 97.8 F Temperature Source Temporal Pulse Rate (60-100) 71 Pulse Location Monitor Respiratory Rate (12-18) Respiratory rate source Blood Pressure (90/60-120/80) 139/92 H Blood Pressure Mean (mm Hg) 107 Source Monitor Position Sitting Blood Pressure Location Right Arm Pain Scale: 0-10 Numeric Is Patient Pain Free? Yes Yes Wound Care Nurse 3 #7 left lower ABD -Ulcer Cleansing Rinsed/ Irrigated with Saline -Foul Odor after Cleansing No -Negative Pressure Wound Therapy -Setting (mmHg) -Negative Pressure is -Primary Dressing Applied Aquacel AG 4x4 -Primary Dressing Covered/Secured with Secured with Tape,Other -Other Covering abd -NPWT Application Charge -Aquacel AG 4x4 1 #2 Mid abd/Bellybutton -Ulcer Cleansing Rinsed/ Soap and Water Irrigated with Saline -Foul Odor after Cleansing No -Negative Pressure Wound Therapy Continue -Setting (mmHg) 150 -Negative Pressure is Continuous -Regranex (If Applicable) Continue -Primary Dressing Applied Aquacel AG 4x4 -Primary Dressing Covered/Secured with Secured with Tape,Other -Other Covering abd -NPWT Application Charge NPWT </= 50 sq cm ($) -Aquacel AG 4x4 0 Treatment Response Procedure Tolerated Well WC - Visit Discharge Discharge Condition Stable Stable Ambulatory Status Ambulatory Ambulatory Transportation Private Auto Private Auto Accompanied by mom Medication Reconcilliation completed & provided to patient/care provider Clinical Summary of Care Provided Notes: Assessment/Plan Assessment/Plan (1) Non-healing surgical wound: CODE(S): T81.89XA - Other complications of procedures, not elsewhere classified, initial encounter QUALIFIERS: Encounter type: initial encounter Qualified Code(s): T81.89XA - Other complications of procedures, not elsewhere classified, initial encounter (2) Surgical wound breakdown: CODE(S): T81.31XA - Disruption of external operation (surgical) wound, not elsewhere classified, initial encounter QUALIFIERS: Encounter type: initial encounter Qualified Code(s): T81.31XA - Disruption of external operation (surgical) wound, not elsewhere classified, initial encounter (3) Yeast infection of the skin: CODE(S): B37.2 - Candidiasis of skin and nail PLAN: This is a courtesy visit today. She was seen last week when she came in for a nurse visit for a wound VAC change and she has a very excoriated zaid wound and I was asked to evaluate it. Today her zaid wound is much improved. The excoriation has resolved with the wound VAC holiday and Diflucan. No debridement was performed today. Since she was having increased odor last week, I obtained wound cultures on 09/20/21 which were positive for Staphylococcus aureus, Corynebacterium jeikeium, Anaerobic cocci and Prevotella bivia. I will start her on Augmentin twice daily x 14 days. I also encouraged her to start taking a probiotic and eating yogurt while she is on the antibiotic. Since she had issues with yeast, encouraged her to choose a low carb, high protein diet to prevent further yeast issues. Wound Care - Will restart the wound VAC at 150 mmHg over the lower abdominal wound. She will place Aquacel - Ag into her umbilicus to keep it dry daily and cover with gauze. She will then follow up with Dr. Nash on 09/30/21.
[2021-09-30 09:29] VITALS: BP 140/85; PULSE 65; RESP 20; TEMP 35.7; BMI 28.4
--- NOTE | 2021-09-30 12:58 | PN.PCM_ITS ---
History of Present Illness Date of Service: 09/30/21 Chief Complaint: Surgical wound break down History of Wound: Ms. Quintero is a 35-year-old who presents to the wound center due to surgical wound breakdown. Had extensive surgery done in June to remove excess skin following weight loss from bariatric surgery. Surgery was done in [place]. Surgery was uneventful and for the most part has done really well post surgery. Had some areas of wound breakdown. Has been applying Medihoney and Aquacel without any significant improvement. Minimal clear with blood tingled drainage. She was referred here by her primary care physician. She denies any history of diabetes mellitus, tobacco or alcohol abuse. Feels well otherwise. Progress of Wound: No acute concerns at this time. Has had wound VAC back on following the holiday and is tolerating it well Objective Data Objective Data Vital Signs: Vital Signs Temp Pulse Resp BP 96.2 F L 65 20 H 140/85 H 09/30/21 09:29 09/30/21 09:29 09/30/21 09:29 09/30/21 09:29 Weight: 160 lb 11.834 oz Body Mass Index (BMI) 28.4 Lab / Micro Data Micro: Microbiology 09/20/21 09:00 Wound Abcess - Abdominal Gram Stain - Final 09/20/21 09:00 Wound Abcess - Abdominal Wound Culture - Final Staphylococcus aureus Corynebacterium jeikeium 09/20/21 09:00 Wound Abcess - Abdominal Anaerobic Culture - Final Anaerobic cocci Prevotella bivia Charges/Coding Procedures Integumentary [id number]: [id number] Hollie subq tissue 20 sq cm/< Physical Exam Const alert, oriented x3 and no apparent distress General Appearance: cooperative, comfortable, well kempt and well developed HEENT normocephalic and head/scalp atraumatic Head and Scalp: normal to inspection and normocephalic Eyes EOMs intact bilaterally General Eye: normal appearance of both eyes Neck full ROM General: normal visual inspection Resp normal respiratory effort Effort and Inspection: able to speak in complete sentences Skin Wounds: wounds noted Neuro oriented x3, CN's II-XII intact bilaterally, moves all extremities and no focal motor deficits Psych mental status grossly normal Appearance: grossly normal Attitude: calm Activity / Motor Behavior: appropriate eye contact Speech: normal speech Thought Process: normal thought process Debridement Note Debridement Note Wound debrided: Lower abdominal wound Type of Debridement: Excisional debridement Anesthesia Used: 4% Lidocaine Solution Depth: Down to and including healthy tissue and in the subcutaneous layer Percentage of wound debrided: 100 Instrument Used: 3mm curette Tissue Removed: Devitalized tissue Severity: Fat Layer Exposed Amount of bleeding with debridement: Mild Bleeding Controlled with: Pressure Patient tolerated procedure: Patient tolerated procedure well Post-Debridement Measurements and Additional Note: Post-Debridement Measurements/Treatment - Nurse 1 - General Ulcer Assessment Start: 09/13/21 08:37 Freq: Status: Active Protocol: KANG Activity Type Activity Date Activity User E-Sign Co-Sign Detail Recorded Client Recorded Date Recorded By Document 09/13/21 08:41 DL [id number] 09/13/21 09:05 DL Document 09/16/21 09:23 JF [id number] 09/16/21 09:35 JF Document 09/20/21 08:41 KR [id number] 09/20/21 08:44 KR Document 09/27/21 08:47 KR [id number] 09/27/21 08:49 KR Edit Result 09/27/21 08:47 KR (1) [id number] 09/27/21 09:18 BMF Document 09/30/21 09:29 DL [id number] 09/30/21 09:39 DL (1) Type of service Nurse-only Visit => Follow-up Visit ( => Physician/HUMAN RESOURCES TRAINING MANAGER) Accompanied by => pt initially a => nurse visit, then => seen by maggie => [employer] technician 09/13/21 09/16/21 09/20/21 08:41 09:23 08:41 - Today's Visit Information Type of service Nurse-only Follow-up Visit Follow-up Visit Visit (Physician/HUMAN RESOURCES TRAINING MANAGER (Physician/HUMAN RESOURCES TRAINING MANAGER ) ) Arrival Mode Ambulatory Ambulatory Ambulatory Transfer Assistance None Accompanied by Patient Identification Verified (Name & Yes Yes Yes ) Patient Requires Transmission-Based No No Precautions Height and Weight Body Mass Index (BMI) 28.4 28.4 28.4 BMI Classification Overweight Overweight Overweight Vital Signs Temperature (97.8 F-99.1 F) 96.8 F L 97.8 F 97.0 F L Temperature Source Temporal Temporal Temporal Pulse Rate (60-100) 73 64 74 Pulse Location Monitor Monitor Monitor Respiratory Rate (12-18) 18 18 Respiratory rate source Observation Observation Blood Pressure (90/60-120/80) 143/63 H 132/85 H 147/84 H Blood Pressure Mean (mm Hg) 89 100 105 Source Monitor Monitor Monitor Position Semi-Fowlers Semi-Fowlers Blood Pressure Location Left Arm Left Arm Comment History Since Last Visit- (Skip if this is Patient's initial visit) Have you changed medications since your No No No last visit? Any new allergies or adverse reactions No No No Had a fall/change in ADL's that may No No No increase risk of falls Signs or symptoms of abuse and/or No No No neglect since last visit Have you been in the hospital since your No No No last visit? Has dressing in place as prescribed Yes Yes Yes Has compression in place as prescribed Yes N/A N/A Has offloadiing in place as prescribed N/A N/A N/A Experienced any changes in pain level or No No No management Left Footwear Regular Shoe Regular Shoe Right Footwear Regular Shoe Regular Shoe Pain Scale: 0-10 Numeric Is Patient Pain Free? Yes Yes Yes 09/27/21 09/30/21 08:47 09:29 WC - Today's Visit Information Type of service Follow-up Visit Follow-up Visit (Physician/HUMAN RESOURCES TRAINING MANAGER (Physician/HUMAN RESOURCES TRAINING MANAGER ) ) Arrival Mode Ambulatory Ambulatory Transfer Assistance None Accompanied by pt initially a nurse visit, then seen by maggie [employer] technician Patient Identification Verified (Name & Yes Yes ) Patient Requires Transmission-Based No Precautions Height and Weight Body Mass Index (BMI) 28.4 28.4 BMI Classification Overweight Overweight Vital Signs Temperature (97.8 F-99.1 F) 97.8 F 96.2 F L Temperature Source Temporal Temporal Pulse Rate (60-100) 71 65 Pulse Location Monitor Monitor Respiratory Rate (12-18) 20 H Respiratory rate source Observation Blood Pressure (90/60-120/80) 139/92 H 140/85 H Blood Pressure Mean (mm Hg) 107 103 Source Monitor Monitor Position Sitting Blood Pressure Location Right Arm Comment Started ATB as ordered History Since Last Visit- (Skip if this is Patient's initial visit) Have you changed medications since your No No last visit? Any new allergies or adverse reactions No No Had a fall/change in ADL's that may No No increase risk of falls Signs or symptoms of abuse and/or No No neglect since last visit Have you been in the hospital since your No No last visit? Has dressing in place as prescribed Yes Yes Has compression in place as prescribed N/A N/A Has offloadiing in place as prescribed N/A N/A Experienced any changes in pain level or No No management Left Footwear Regular Shoe Right Footwear Regular Shoe Pain Scale: 0-10 Numeric Is Patient Pain Free? Yes Yes - Nurse 1 - General Ulcer Measurement Start: 09/13/21 08:37 Freq: Status: Active Protocol: Activity Type Activity Date Activity User E-Sign Co-Sign Detail Recorded Client Recorded Date Recorded By Document 09/13/21 08:41 DL [id number] 09/13/21 09:05 DL Document 09/16/21 09:23 JF [id number] 09/16/21 09:35 JF Document 09/20/21 08:41 KR [id number] 09/20/21 08:44 KR Document 09/30/21 09:29 DL [id number] 09/30/21 09:39 DL 09/13/21 09/16/21 09/20/21 08:41 09:23 08:41 Wound Center Nurse 1 #7 left lower ABD -Combined with other wound No -Current Size (cm) - Length 0.6 0.6 -Current Size (cm) - Width 0.9 1.4 -Current Size (cm) - Depth 2.4 1.6 -Total Square Cm 0.54 0.84 -Date of Last Picture (Recall this field) -Photo Taken No No -Epithelialization Medium 34-66% -Tunneling Yes -Tunneling Position (O'clock) 9 9 -Tunneling Distance (cm) 4.7 4.7 -Undermining/Tunneling No -Circular Undermining No -Exudate Amt Large Medium Medium -Exudate Type Serosanguineous Serosanguineous Serosanguineous -Wound Margin Distinct, Flat & Intact Distinct, Outline Outline Attached Attached -Granulation Amt Medium (34-66%) Large (67-100%) Medium (34-66%) -Granulation Quality Red Red Red -Slough/Fibrin Yes -Necrosis Amt None Present (0 Small (1-33%) Medium (34-66%) %) -Necrotic Tissue Type Adherent Slough Adherent Slough -Structure Exposed N/A N/A -Texture (Anca-wound Skin Appearance) Scarring Assessed, Assessed, Excoriation Scarring -Moisture (Anca-wound Skin Appearance) No Abnormality Dry/Scaly Assessed, Maceration -Color (Anca-wound Skin Appearance) No Abnormality Assessed No Abnormality, Assessed -Temperature (Anca-wound Skin No Abnormality No Abnormality No Abnormality Appearance) (Pt Warm) (Pt Warm) (Pt Warm) -Tenderness on Palpation (Anca-wound No No Skin Appearance) -Ulcer Cleansing Soap and Water Wound Cleanser Soap and Water -Foul Odor after Cleansing No No No -Anesthetic Used 4% Lidocaine 4% Lidocaine Solution Solution #2 Mid abd/Bellybutton -Combined with other wound No -Current Size (cm) - Length 0.6 0.5 -Current Size (cm) - Width 0.3 0.2 -Current Size (cm) - Depth 0.9 0.6 -Total Square Cm 0.18 0.10 -Date of Last Picture (Recall this field) -Photo Taken No No -Epithelialization Small 1-33% -Tunneling Yes -Tunneling Position (O'clock) 6 -Tunneling Distance (cm) 1 -Undermining/Tunneling No -Circular Undermining No -Exudate Amt Large Medium Medium -Exudate Type Serosanguineous Serosanguineous Serosanguineous -Wound Margin Distinct, Flat & Intact Distinct, Outline Outline Attached Attached -Granulation Amt Medium (34-66%) Large (67-100%) Medium (34-66%) -Granulation Quality Red Red Red -Slough/Fibrin Yes -Necrosis Amt Small (1-33%) Medium (34-66%) -Necrotic Tissue Type Adherent Slough Adherent Slough -Structure Exposed N/A -Texture (Anca-wound Skin Appearance) Scarring,Rash Assessed, Assessed, Excoriation Scarring -Moisture (Anca-wound Skin Appearance) Assessed,Dry/ Assessed, Scaly Maceration -Color (Anca-wound Skin Appearance) No Abnormality Assessed No Abnormality, Assessed -Temperature (Anca-wound Skin No Abnormality No Abnormality No Abnormality Appearance) (Pt Warm) (Pt Warm) (Pt Warm) -Tenderness on Palpation (Anca-wound No No No Skin Appearance) -Ulcer Cleansing Soap and Water Wound Cleanser Soap and Water -Foul Odor after Cleansing No Yes -Anesthetic Used 4% Lidocaine Solution Lower Limb Edema Present NA 09/30/21 09:29 Wound Center Nurse 1 #7 left lower ABD -Combined with other wound No -Current Size (cm) - Length 0.5 -Current Size (cm) - Width 1 -Current Size (cm) - Depth 1.1 -Total Square Cm 0.5 -Date of Last Picture (Recall this 09/30/21 field) -Photo Taken Yes -Epithelialization Small 1-33% -Tunneling Yes -Tunneling Position (O'clock) 9 -Tunneling Distance (cm) 3.7 -Undermining/Tunneling No -Circular Undermining No -Exudate Amt Small -Exudate Type Serosanguineous -Wound Margin Distinct, Outline Attached -Granulation Amt Large (67-100%) -Granulation Quality Red -Slough/Fibrin No -Necrosis Amt None Present (0 %) -Necrotic Tissue Type -Structure Exposed -Texture (Anca-wound Skin Appearance) Assessed, Scarring -Moisture (Anca-wound Skin Appearance) Assessed -Color (Anca-wound Skin Appearance) Assessed -Temperature (Anca-wound Skin No Abnormality Appearance) (Pt Warm) -Tenderness on Palpation (Anca-wound No Skin Appearance) -Ulcer Cleansing Soap and Water -Foul Odor after Cleansing No -Anesthetic Used 4% Lidocaine Solution #2 Mid abd/Bellybutton -Combined with other wound No -Current Size (cm) - Length 0.6 -Current Size (cm) - Width 0.3 -Current Size (cm) - Depth 0.6 -Total Square Cm 0.18 -Date of Last Picture (Recall this 09/30/21 field) -Photo Taken Yes -Epithelialization None Present -Tunneling Yes -Tunneling Position (O'clock) 6 -Tunneling Distance (cm) 1.4 -Undermining/Tunneling No -Circular Undermining No -Exudate Amt Small -Exudate Type Sanguineous -Wound Margin Distinct, Outline Attached -Granulation Amt -Granulation Quality -Slough/Fibrin -Necrosis Amt -Necrotic Tissue Type -Structure Exposed -Texture (Anca-wound Skin Appearance) Assessed, Scarring -Moisture (Anca-wound Skin Appearance) Assessed -Color (Anca-wound Skin Appearance) Assessed -Temperature (Anca-wound Skin No Abnormality Appearance) (Pt Warm) -Tenderness on Palpation (Anca-wound No Skin Appearance) -Ulcer Cleansing Soap and Water -Foul Odor after Cleansing No -Anesthetic Used 4% Lidocaine Solution Lower Limb Edema Present WC - Nurse 2 - General Ulcer CM Notes Start: 09/13/21 08:37 Freq: Status: Active Protocol: Activity Type Activity Date Activity User E-Sign Co-Sign Detail Recorded Client Recorded Date Recorded By Document 09/16/21 09:43 MW [id number] 09/16/21 09:50 MW Document 09/20/21 08:59 JF [id number] 09/20/21 09:00 JF Document 09/30/21 09:56 MW [id number] 09/30/21 10:05 MW 09/16/21 09/20/21 09/30/21 09:43 08:59 09:56 Wound Center Nurse 2 #7 left lower ABD -Time 09:44 08:59 09:56 -Correct Patient Yes Yes Yes -Correct Side, Site, Position Yes Yes Yes -Correct Procedure Yes Yes Yes -Procedure Performed Yes Yes Yes -Type of Procedure Debridement Debridement Debridement -Clinical Debridement Subcutaneous Subcutaneous Subcutaneous -Tissue Removed Subcutaneous Subcutaneous Subcutaneous -Post Debridement (cm) - Length 0.4 1.2 0.5 -Post Debridement (cm) - Width 1.5 1.6 1.0 -Post Debridement (cm) - Depth 2.8 1.8 1.5 -Total Square (Post) (cm) 0.60 1.92 0.50 -Area of Debridement (cm) - Length 0.4 1.2 0.5 -Area of Debridement (cm) - Width 1.5 1.6 1.0 -Total Square (Area) (cm) 0.60 1.92 0.50 -Tunneling Yes Yes Yes -Tunneling Position (O'clock) 3 9 9 -Tunneling Distance (cm) 0.7 4.4 4.0 -Tunneling Position #2 (O'clock) 9 -Tunneling Distance #2 (cm) 5.0 -Undermining/Tunneling No No No -Circular Undermining No No No -Wound/Ulcer Outcome Not Healed Not Healed Not Healed -Ulcer Cleansing Rinsed/ Rinsed/ Rinsed/ Irrigated with Irrigated with Irrigated with Saline Saline Saline -Foul Odor after Cleansing No No No -Bioengineered Tissue No No No -Bleeding Controlled with Pressure Pressure Pressure -Treatment Response Procedure Procedure Tolerated Well Tolerated Well -Offloading No No No -Debridement - Subq, 1st 20sq cm Yes Yes Yes #2 Mid abd/Bellybutton -Time 09:44 09:58 -Correct Patient Yes No Yes -Correct Side, Site, Position Yes No Yes -Correct Procedure Yes No Yes -Procedure Performed Yes No No -Type of Procedure Debridement -Clinical Debridement Subcutaneous -Tissue Removed Subcutaneous -Post Debridement (cm) - Length 0.1 0.1 -Post Debridement (cm) - Width 0.1 0.1 -Post Debridement (cm) - Depth 0.1 1.5 -Total Square (Post) (cm) 0.01 0.01 -Area of Debridement (cm) - Length 0.1 -Area of Debridement (cm) - Width 0.1 -Total Square (Area) (cm) 0.01 -Tunneling Yes No -Tunneling Position (O'clock) 6 -Tunneling Distance (cm) 2.3 -Undermining/Tunneling No No -Circular Undermining No No -Wound/Ulcer Outcome Not Healed Not Healed Not Healed -Ulcer Cleansing Rinsed/ Rinsed/ Irrigated with Irrigated with Saline Saline -Foul Odor after Cleansing No No -Bioengineered Tissue No No -Bleeding Controlled with Pressure -Treatment Response Procedure Procedure Tolerated Well Tolerated Well -Offloading No -Debridement - Subq, 1st 20sq cm No Pain Scale: 0-10 Numeric Is Patient Pain Free? Yes Yes Yes - Nurse 3 - General Ulcer D/C NN Start: 09/13/21 08:37 Freq: Status: Active Protocol: Activity Type Activity Date Activity User E-Sign Co-Sign Detail Recorded Client Recorded Date Recorded By Document 09/13/21 08:41 DL [id number] 09/13/21 09:05 DL Edit Result 09/13/21 08:41 DL (1) [id number] 09/14/21 06:58 PL Document 09/16/21 09:54 JF [id number] 09/16/21 09:56 JF Edit Result 09/16/21 09:54 JF (2) [id number] 09/16/21 14:34 PL Document 09/20/21 08:41 KR [id number] 09/20/21 08:44 KR Document 09/20/21 09:16 BMF [id number] 09/20/21 09:16 BMF Document 09/27/21 08:47 KR [id number] 09/27/21 08:49 KR Edit Result 09/27/21 08:47 KR (3) [id number] 09/27/21 09:18 BMF Edit Result 09/27/21 08:47 KR (4) [id number] 09/28/21 07:18 PL Document 09/30/21 10:21 BMF [id number] 09/30/21 10:22 BMF (1) #2 Mid abd/Bellybutton - NPWT Application Charge NPWT - Multiple => NPWT </= 50 sq cm Locations => ($) (2) #2 Mid abd/Bellybutton - NPWT Application Charge NPWT & Debridement => NPWT - Multiple (nc) => Locations (3) #7 left lower ABD - Ulcer Cleansing => Soap and Water - Foul Odor after Cleansing => No - Negative Pressure Wound Therapy => Continue - Setting (mmHg) => 150 - Negative Pressure is => Continuous - NPWT Application Charge => NPWT & Debridement => (nc) #2 Mid abd/Bellybutton - Foul Odor after Cleansing => No - Negative Pressure Wound Therapy Continue => - Setting (mmHg) 150 => - Negative Pressure is Continuous => - Regranex (If Applicable) Continue => - Primary Dressing Applied => Aquacel AG 4x4 - Primary Dressing Covered/Secured with => Dry Gauze - NPWT Application Charge NPWT </= 50 sq cm => ($) => - Aquacel AG 4x4 => 1 (4) #7 left lower ABD - NPWT Application Charge NPWT & Debridement => NPWT </= 50 sq cm (nc) => ($) 09/13/21 09/16/21 09/20/21 08:41 09:54 08:41 Vital Signs Temperature (97.8 F-99.1 F) 96.8 F L 97.0 F L Temperature Source Temporal Temporal Pulse Rate (60-100) 73 74 Pulse Location Monitor Monitor Respiratory Rate (12-18) 18 Respiratory rate source Observation Blood Pressure (90/60-120/80) 143/63 H 147/84 H Blood Pressure Mean (mm Hg) 89 105 Source Monitor Monitor Position Semi-Fowlers Blood Pressure Location Left Arm Pain Scale: 0-10 Numeric Is Patient Pain Free? Yes Yes Yes Wound Care Nurse 3 #7 left lower ABD -Ulcer Cleansing Soap and Water Rinsed/ Irrigated with Saline -Foul Odor after Cleansing No No -Negative Pressure Wound Therapy Continue Continue -Setting (mmHg) 150 150 -Negative Pressure is Continuous Continuous -Primary Dressing Applied -Primary Dressing Covered/Secured with -Other Covering -NPWT Application Charge NPWT - Multiple NPWT & Locations Debridement (nc ) -Aquacel AG 4x4 #2 Mid abd/Bellybutton -Ulcer Cleansing Soap and Water Rinsed/ Irrigated with Saline -Foul Odor after Cleansing No No -Negative Pressure Wound Therapy Continue Continue -Setting (mmHg) 150 150 -Negative Pressure is Continuous Continuous -Primary Dressing Applied -Primary Dressing Covered/Secured with -Other Covering -NPWT Application Charge NPWT </= 50 sq NPWT - Multiple cm ($) Locations -Aquacel AG 4x4 Treatment Response Procedure Tolerated Well WC - Visit Discharge Discharge Condition Stable Stable Ambulatory Status Ambulatory Ambulatory Transportation Private Auto Private Auto Accompanied by Medication Reconcilliation completed & Yes provided to patient/care provider Clinical Summary of Care Provided Yes Notes: Wite foam to White foam tunnel at Med applied to Aabd/ tunneled areas bellybutton to both ulcers. topped with black foam. 09/20/21 09/27/21 09/30/21 09:16 08:47 10:21 Vital Signs Temperature (97.8 F-99.1 F) 97.8 F Temperature Source Temporal Pulse Rate (60-100) 71 Pulse Location Monitor Respiratory Rate (12-18) Respiratory rate source Blood Pressure (90/60-120/80) 139/92 H Blood Pressure Mean (mm Hg) 107 Source Monitor Position Sitting Blood Pressure Location Right Arm Pain Scale: 0-10 Numeric Is Patient Pain Free? Yes Yes Yes Wound Care Nurse 3 #7 left lower ABD -Ulcer Cleansing Rinsed/ Soap and Water Rinsed/ Irrigated with Irrigated with Saline Saline -Foul Odor after Cleansing No No No -Negative Pressure Wound Therapy Continue Continue -Setting (mmHg) 150 150 -Negative Pressure is Continuous Continuous -Primary Dressing Applied Aquacel AG 4x4 -Primary Dressing Covered/Secured with Secured with Tape,Other -Other Covering abd -NPWT Application Charge NPWT </= 50 sq NPWT & cm ($) Debridement (nc ) -Aquacel AG 4x4 1 #2 Mid abd/Bellybutton -Ulcer Cleansing Rinsed/ Soap and Water Rinsed/ Irrigated with Irrigated with Saline Saline -Foul Odor after Cleansing No No No -Negative Pressure Wound Therapy -Setting (mmHg) -Negative Pressure is -Primary Dressing Applied Aquacel AG 4x4 Aquacel AG 4x4 Aquacel AG 4x4 -Primary Dressing Covered/Secured with Secured with Dry Gauze Dry Gauze, Tape,Other Secured with Tape -Other Covering abd -NPWT Application Charge -Aquacel AG 4x4 0 1 1 Treatment Response Procedure Procedure Tolerated Well Tolerated Well WC - Visit Discharge Discharge Condition Stable Stable Stable Ambulatory Status Ambulatory Ambulatory Ambulatory Transportation Private [employer] Accompanied by mom Medication Reconcilliation completed & provided to patient/care provider Clinical Summary of Care Provided Notes: Assessment/Plan Assessment/Plan (1) Surgical wound breakdown: CODE(S): T81.31XA - Disruption of external operation (surgical) wound, not elsewhere classified, initial encounter QUALIFIERS: Encounter type: initial encounter Qualified Code(s): T81.31XA - Disruption of external operation (surgical) wound, not elsewhere classified, initial encounter (2) Non-healing surgical wound: CODE(S): T81.89XA - Other complications of procedures, not elsewhere classified, initial encounter QUALIFIERS: Encounter type: initial encounter Qualified Code(s): T81.89XA - Other complications of procedures, not elsewhere classified, initial encounter PLAN: Debridement done as documented above, procedure was well-tolerated. Was seen for courtesy visit twice due to concerns with the periwound area. Had a wound VAC holiday and was treated with Diflucan and Augmentin respectively. Periwound dermatitis/infection has resolved. Continues to show good improvement. Better granulation. Continue wound VAC at 150 mmHg. Come in for a nurse visit on Monday, and Monday for change. Continue Aquacel to the umbilical area, change daily. Still some depth/tunneling noted. Increased protein intake, vitamin C and zinc recommended. She voiced understanding. Her questions were answered and she was advised to call with any further questions or concerns. Follow-up in 1 week. This note was generated with [employer] dictation software. It may contain incorrect words, spelling, and punctuation that were not noted in checking the note before signing.
[2021-10-04 08:33] VITALS: BP 128/80; PULSE 68; TEMP 36.2; BMI 28.4
[2021-10-07 09:35] VITALS: BP 157/74; PULSE 66; RESP 16; TEMP 36.9; BMI 28.4
--- NOTE | 2021-10-07 12:20 | PN.PCM_ITS ---
History of Present Illness Date of Service: 10/07/21 Chief Complaint: Surgical wound break down History of Wound: Ms. Quintero is a 35-year-old who presents to the wound center due to surgical wound breakdown. Had extensive surgery done in June to remove excess skin following weight loss from bariatric surgery. Surgery was done in [place]. Surgery was uneventful and for the most part has done really well post surgery. Had some areas of wound breakdown. Has been applying Medihoney and Aquacel without any significant improvement. Minimal clear with blood tingled drainage. She was referred here by her primary care physician. She denies any history of diabetes mellitus, tobacco or alcohol abuse. Feels well otherwise. Progress of Wound: Improving. No new concerns at this time. Umbilical wound with no drainage per patient. Objective Data Objective Data Vital Signs: Vital Signs Temp Pulse Resp BP 98.5 F 66 16 157/74 H 10/07/21 09:35 10/07/21 09:35 10/07/21 09:35 10/07/21 09:35 Oxygen Delivery Method Room Air Weight: 160 lb 11.834 oz Body Mass Index (BMI) 28.4 Lab / Micro Data Micro: Microbiology 09/20/21 09:00 Wound Abcess - Abdominal Gram Stain - Final 09/20/21 09:00 Wound Abcess - Abdominal Wound Culture - Final Staphylococcus aureus Corynebacterium jeikeium 09/20/21 09:00 Wound Abcess - Abdominal Anaerobic Culture - Final Anaerobic cocci Prevotella bivia Charges/Coding Procedures Integumentary [id number]: [id number] Hollie subq tissue 20 sq cm/< Physical Exam Const alert, oriented x3 and no apparent distress General Appearance: cooperative, comfortable, well kempt and well developed HEENT normocephalic and head/scalp atraumatic Head and Scalp: normal to inspection and normocephalic Eyes EOMs intact bilaterally General Eye: normal appearance of both eyes Neck full ROM General: normal visual inspection Resp normal respiratory effort Effort and Inspection: able to speak in complete sentences Skin Wounds: wounds noted Neuro oriented x3, CN's II-XII intact bilaterally, moves all extremities and no focal motor deficits Psych mental status grossly normal Appearance: grossly normal Attitude: calm Activity / Motor Behavior: appropriate eye contact Speech: normal speech Thought Process: normal thought process Debridement Note Debridement Note Wound debrided: Lower Abdomen Type of Debridement: Excisional debridement Anesthesia Used: 4% Lidocaine Solution Depth: Down to and including healthy tissue and in the subcutaneous layer Percentage of wound debrided: 100 Instrument Used: 5mm curette Tissue Removed: Slough and devitalized tissue Severity: Fat Layer Exposed Amount of bleeding with debridement: Mild Bleeding Controlled with: Pressure Patient tolerated procedure: Patient tolerated procedure well Post-Debridement Measurements and Additional Note: Post-Debridement Measurements/Treatment - Nurse 1 - General Ulcer Assessment Start: 09/13/21 08:37 Freq: Status: Active Protocol: KANG Activity Type Activity Date Activity User E-Sign Co-Sign Detail Recorded Client Recorded Date Recorded By Document 09/13/21 08:41 DL [id number] 09/13/21 09:05 DL Document 09/16/21 09:23 JF [id number] 09/16/21 09:35 JF Document 09/20/21 08:41 KR [id number] 09/20/21 08:44 KR Document 09/27/21 08:47 KR [id number] 09/27/21 08:49 KR Edit Result 09/27/21 08:47 KR (1) [id number] 09/27/21 09:18 BMF Document 09/30/21 09:29 DL [id number] 09/30/21 09:39 DL Document 10/04/21 08:33 KR [id number] 10/04/21 08:34 KR Document 10/07/21 09:35 BMF [id number] 10/07/21 09:45 BMF (1) Type of service Nurse-only Visit => Follow-up Visit ( => Physician/BAND BIAS MACHINE OPERATOR) Accompanied by => pt initially a => nurse visit, then => seen by maggie => gayle slip injector and applicator 09/13/21 09/16/21 09/20/21 08:41 09:23 08:41 - Today's Visit Information Type of service Nurse-only Follow-up Visit Follow-up Visit Visit (Physician/BAND BIAS MACHINE OPERATOR (Physician/BAND BIAS MACHINE OPERATOR ) ) Arrival Mode Ambulatory Ambulatory Ambulatory Transfer Assistance None Accompanied by Patient Identification Verified (Name & Yes Yes Yes ) Patient Requires Transmission-Based No No Precautions Height and Weight Body Mass Index (BMI) 28.4 28.4 28.4 BMI Classification Overweight Overweight Overweight Vital Signs Temperature (97.8 F-99.1 F) 96.8 F L 97.8 F 97.0 F L Temperature Source Temporal Temporal Temporal Pulse Rate (60-100) 73 64 74 Pulse Location Monitor Monitor Monitor Respiratory Rate (12-18) 18 18 Respiratory rate source Observation Observation Oxygen Delivery Method Blood Pressure (90/60-120/80) 143/63 H 132/85 H 147/84 H Blood Pressure Mean (mm Hg) 89 100 105 Source Monitor Monitor Monitor Position Semi-Fowlers Semi-Fowlers Blood Pressure Location Left Arm Left Arm Comment History Since Last Visit- (Skip if this is Patient's initial visit) Have you changed medications since your No No No last visit? Any new allergies or adverse reactions No No No Had a fall/change in ADL's that may No No No increase risk of falls Signs or symptoms of abuse and/or No No No neglect since last visit Have you been in the hospital since your No No No last visit? Has dressing in place as prescribed Yes Yes Yes Has compression in place as prescribed Yes N/A N/A Has offloadiing in place as prescribed N/A N/A N/A Experienced any changes in pain level or No No No management Left Footwear Regular Shoe Regular Shoe Right Footwear Regular Shoe Regular Shoe Pain Scale: 0-10 Numeric Is Patient Pain Free? Yes Yes Yes 09/27/21 09/30/21 10/04/21 08:47 09:29 08:33 WC - Today's Visit Information Type of service Follow-up Visit Follow-up Visit Nurse-only (Physician/BAND BIAS MACHINE OPERATOR (Physician/BAND BIAS MACHINE OPERATOR Visit ) ) Arrival Mode Ambulatory Ambulatory Ambulatory Transfer Assistance None Accompanied by pt initially a nurse visit, then seen by maggie araujo np Patient Identification Verified (Name & Yes Yes ) Patient Requires Transmission-Based No Precautions Height and Weight Body Mass Index (BMI) 28.4 28.4 28.4 BMI Classification Overweight Overweight Overweight Vital Signs Temperature (97.8 F-99.1 F) 97.8 F 96.2 F L 97.2 F L Temperature Source Temporal Temporal Temporal Pulse Rate (60-100) 71 65 68 Pulse Location Monitor Monitor Monitor Respiratory Rate (12-18) 20 H Respiratory rate source Observation Oxygen Delivery Method Blood Pressure (90/60-120/80) 139/92 H 140/85 H 128/80 H Blood Pressure Mean (mm Hg) 107 103 96 Source Monitor Monitor Monitor Position Sitting Sitting Blood Pressure Location Right Arm Right Arm Comment Started ATB as ordered History Since Last Visit- (Skip if this is Patient's initial visit) Have you changed medications since your No No No last visit? Any new allergies or adverse reactions No No No Had a fall/change in ADL's that may No No No increase risk of falls Signs or symptoms of abuse and/or No No No neglect since last visit Have you been in the hospital since your No No No last visit? Has dressing in place as prescribed Yes Yes Yes Has compression in place as prescribed N/A N/A N/A Has offloadiing in place as prescribed N/A N/A N/A Experienced any changes in pain level or No No No management Left Footwear Regular Shoe Regular Shoe Right Footwear Regular Shoe Regular Shoe Pain Scale: 0-10 Numeric Is Patient Pain Free? Yes Yes Yes 10/07/21 09:35 WC - Today's Visit Information Type of service Follow-up Visit (Physician/BAND BIAS MACHINE OPERATOR ) Arrival Mode Ambulatory Transfer Assistance None Accompanied by Patient Identification Verified (Name & Yes ) Patient Requires Transmission-Based No Precautions Height and Weight Body Mass Index (BMI) 28.4 BMI Classification Overweight Vital Signs Temperature (97.8 F-99.1 F) 98.5 F Temperature Source Temporal Pulse Rate (60-100) 66 Pulse Location Monitor Respiratory Rate (12-18) 16 Respiratory rate source Observation Oxygen Delivery Method Room Air Blood Pressure (90/60-120/80) 157/74 H Blood Pressure Mean (mm Hg) 101 Source Monitor Position Sitting Blood Pressure Location Left Arm Comment History Since Last Visit- (Skip if this is Patient's initial visit) Have you changed medications since your No last visit? Any new allergies or adverse reactions No Had a fall/change in ADL's that may No increase risk of falls Signs or symptoms of abuse and/or No neglect since last visit Have you been in the hospital since your No last visit? Has dressing in place as prescribed Yes Has compression in place as prescribed N/A Has offloadiing in place as prescribed N/A Experienced any changes in pain level or No management Left Footwear Regular Shoe Right Footwear Regular Shoe Pain Scale: 0-10 Numeric Is Patient Pain Free? Yes WC - Nurse 1 - General Ulcer Measurement Start: 09/13/21 08:37 Freq: Status: Active Protocol: Activity Type Activity Date Activity User E-Sign Co-Sign Detail Recorded Client Recorded Date Recorded By Document 09/13/21 08:41 DL [id number] 09/13/21 09:05 DL Document 09/16/21 09:23 JF [id number] 09/16/21 09:35 JF Document 09/20/21 08:41 KR [id number] 09/20/21 08:44 KR Document 09/30/21 09:29 DL [id number] 09/30/21 09:39 DL Document 10/07/21 09:35 BMF [id number] 10/07/21 09:45 BMF 09/13/21 09/16/21 09/20/21 08:41 09:23 08:41 Wound Center Nurse 1 #7 left lower ABD -Combined with other wound No -Current Size (cm) - Length 0.6 0.6 -Current Size (cm) - Width 0.9 1.4 -Current Size (cm) - Depth 2.4 1.6 -Total Square Cm 0.54 0.84 -Date of Last Picture (Recall this field) -Photo Taken No No -Epithelialization Medium 34-66% -Tunneling Yes -Tunneling Position (O'clock) 9 9 -Tunneling Distance (cm) 4.7 4.7 -Undermining/Tunneling No -Circular Undermining No -Exudate Amt Large Medium Medium -Exudate Type Serosanguineous Serosanguineous Serosanguineous -Wound Margin Distinct, Flat & Intact Distinct, Outline Outline Attached Attached -Granulation Amt Medium (34-66%) Large (67-100%) Medium (34-66%) -Granulation Quality Red Red Red -Slough/Fibrin Yes -Necrosis Amt None Present (0 Small (1-33%) Medium (34-66%) %) -Necrotic Tissue Type Adherent Slough Adherent Slough -Structure Exposed N/A N/A -Texture (Anca-wound Skin Appearance) Scarring Assessed, Assessed, Excoriation Scarring -Moisture (Anca-wound Skin Appearance) No Abnormality Dry/Scaly Assessed, Maceration -Color (Anca-wound Skin Appearance) No Abnormality Assessed No Abnormality, Assessed -Temperature (Anca-wound Skin No Abnormality No Abnormality No Abnormality Appearance) (Pt Warm) (Pt Warm) (Pt Warm) -Tenderness on Palpation (Anca-wound No No Skin Appearance) -Ulcer Cleansing Soap and Water Wound Cleanser Soap and Water -Foul Odor after Cleansing No No No -Anesthetic Used 4% Lidocaine 4% Lidocaine Solution Solution #2 Mid abd/Bellybutton -Combined with other wound No -Current Size (cm) - Length 0.6 0.5 -Current Size (cm) - Width 0.3 0.2 -Current Size (cm) - Depth 0.9 0.6 -Total Square Cm 0.18 0.10 -Date of Last Picture (Recall this field) -Photo Taken No No -Epithelialization Small 1-33% -Tunneling Yes -Tunneling Position (O'clock) 6 -Tunneling Distance (cm) 1 -Undermining/Tunneling No -Undermining/Tunneling Starts (O'clock ) -Undermining/Tunneling Ends (O'clock) -Maximum Distance (cm) -Circular Undermining No -Exudate Amt Large Medium Medium -Exudate Type Serosanguineous Serosanguineous Serosanguineous -Wound Margin Distinct, Flat & Intact Distinct, Outline Outline Attached Attached -Granulation Amt Medium (34-66%) Large (67-100%) Medium (34-66%) -Granulation Quality Red Red Red -Slough/Fibrin Yes -Necrosis Amt Small (1-33%) Medium (34-66%) -Necrotic Tissue Type Adherent Slough Adherent Slough -Structure Exposed N/A -Texture (Anca-wound Skin Appearance) Scarring,Rash Assessed, Assessed, Excoriation Scarring -Moisture (Anca-wound Skin Appearance) Assessed,Dry/ Assessed, Scaly Maceration -Color (Anca-wound Skin Appearance) No Abnormality Assessed No Abnormality, Assessed -Temperature (Anca-wound Skin No Abnormality No Abnormality No Abnormality Appearance) (Pt Warm) (Pt Warm) (Pt Warm) -Tenderness on Palpation (Anca-wound No No No Skin Appearance) -Ulcer Cleansing Soap and Water Wound Cleanser Soap and Water -Foul Odor after Cleansing No Yes -Anesthetic Used 4% Lidocaine Solution Lower Limb Edema Present NA 09/30/21 10/07/21 09:29 09:35 Wound Center Nurse 1 #7 left lower ABD -Combined with other wound No No -Current Size (cm) - Length 0.5 0.3 -Current Size (cm) - Width 1 0.9 -Current Size (cm) - Depth 1.1 1.4 -Total Square Cm 0.5 0.27 -Date of Last Picture (Recall this 09/30/21 field) -Photo Taken Yes -Epithelialization Small 1-33% Small 1-33% -Tunneling Yes Yes -Tunneling Position (O'clock) 9 9 -Tunneling Distance (cm) 3.7 2.3 -Undermining/Tunneling No No -Circular Undermining No No -Exudate Amt Small Medium -Exudate Type Serosanguineous Serosanguineous -Wound Margin Distinct, Distinct, Outline Outline Attached Attached -Granulation Amt Large (67-100%) Large (67-100%) -Granulation Quality Red Red -Slough/Fibrin No No -Necrosis Amt None Present (0 None Present (0 %) %) -Necrotic Tissue Type -Structure Exposed -Texture (Anca-wound Skin Appearance) Assessed, Assessed, Scarring Scarring -Moisture (Anca-wound Skin Appearance) Assessed Assessed -Color (Anca-wound Skin Appearance) Assessed Assessed -Temperature (Anca-wound Skin No Abnormality No Abnormality Appearance) (Pt Warm) (Pt Warm) -Tenderness on Palpation (Anca-wound No Yes Skin Appearance) -Ulcer Cleansing Soap and Water Soap and Water -Foul Odor after Cleansing No No -Anesthetic Used 4% Lidocaine 4% Lidocaine Solution Solution #2 Mid abd/Bellybutton -Combined with other wound No No -Current Size (cm) - Length 0.6 0.8 -Current Size (cm) - Width 0.3 0.3 -Current Size (cm) - Depth 0.6 0.5 -Total Square Cm 0.18 0.24 -Date of Last Picture (Recall this 09/30/21 field) -Photo Taken Yes No -Epithelialization None Present -Tunneling Yes No -Tunneling Position (O'clock) 6 -Tunneling Distance (cm) 1.4 -Undermining/Tunneling No Yes -Undermining/Tunneling Starts (O'clock 1 ) -Undermining/Tunneling Ends (O'clock) 6 -Maximum Distance (cm) 0.5 -Circular Undermining No -Exudate Amt Small None Present -Exudate Type Sanguineous -Wound Margin Distinct, Distinct, Outline Outline Attached Attached -Granulation Amt Large (67-100%) -Granulation Quality [place] -Slough/Fibrin -Necrosis Amt -Necrotic Tissue Type -Structure Exposed -Texture (Anca-wound Skin Appearance) Assessed, Assessed, Scarring Scarring -Moisture (Anca-wound Skin Appearance) Assessed Assessed -Color (Anca-wound Skin Appearance) Assessed Assessed -Temperature (Anca-wound Skin No Abnormality No Abnormality Appearance) (Pt Warm) (Pt Warm) -Tenderness on Palpation (Anca-wound No No Skin Appearance) -Ulcer Cleansing Soap and Water Soap and Water -Foul Odor after Cleansing No No -Anesthetic Used 4% Lidocaine 4% Lidocaine Solution Solution Lower Limb Edema Present WC - Nurse 2 - General Ulcer CM Notes Start: 09/13/21 08:37 Freq: Status: Active Protocol: Activity Type Activity Date Activity User E-Sign Co-Sign Detail Recorded Client Recorded Date Recorded By Document 09/16/21 09:43 MW [id number] 09/16/21 09:50 MW Document 09/20/21 08:59 [id number] 09/20/21 09:00 JF Document 09/30/21 09:56 MW [id number] 09/30/21 10:05 MW Document 10/07/21 09:56 MW [id number] 10/07/21 10:04 MW 09/16/21 09/20/21 09/30/21 09:43 08:59 09:56 Wound Center Nurse 2 #7 left lower ABD -Time 09:44 08:59 09:56 -Correct Patient Yes Yes Yes -Correct Side, Site, Position Yes Yes Yes -Correct Procedure Yes Yes Yes -Procedure Performed Yes Yes Yes -Type of Procedure Debridement Debridement Debridement -Clinical Debridement Subcutaneous Subcutaneous Subcutaneous -Tissue Removed Subcutaneous Subcutaneous Subcutaneous -Post Debridement (cm) - Length 0.4 1.2 0.5 -Post Debridement (cm) - Width 1.5 1.6 1.0 -Post Debridement (cm) - Depth 2.8 1.8 1.5 -Total Square (Post) (cm) 0.60 1.92 0.50 -Area of Debridement (cm) - Length 0.4 1.2 0.5 -Area of Debridement (cm) - Width 1.5 1.6 1.0 -Total Square (Area) (cm) 0.60 1.92 0.50 -Tunneling Yes Yes Yes -Tunneling Position (O'clock) 3 9 9 -Tunneling Distance (cm) 0.7 4.4 4.0 -Tunneling Position #2 (O'clock) 9 -Tunneling Distance #2 (cm) 5.0 -Undermining/Tunneling No No No -Circular Undermining No No No -Wound/Ulcer Outcome Not Healed Not Healed Not Healed -Ulcer Cleansing Rinsed/ Rinsed/ Rinsed/ Irrigated with Irrigated with Irrigated with Saline Saline Saline -Foul Odor after Cleansing No No No -Bioengineered Tissue No No No -Bleeding Controlled with Pressure Pressure Pressure -Treatment Response Procedure Procedure Tolerated Well Tolerated Well -Offloading No No No -Debridement - Subq, 1st 20sq cm Yes Yes Yes #2 Mid abd/Bellybutton -Time 09:44 09:58 -Correct Patient Yes No Yes -Correct Side, Site, Position Yes No Yes -Correct Procedure Yes No Yes -Procedure Performed Yes No No -Type of Procedure Debridement -Clinical Debridement Subcutaneous -Tissue Removed Subcutaneous -Post Debridement (cm) - Length 0.1 0.1 -Post Debridement (cm) - Width 0.1 0.1 -Post Debridement (cm) - Depth 0.1 1.5 -Total Square (Post) (cm) 0.01 0.01 -Area of Debridement (cm) - Length 0.1 -Area of Debridement (cm) - Width 0.1 -Total Square (Area) (cm) 0.01 -Tunneling Yes No -Tunneling Position (O'clock) 6 -Tunneling Distance (cm) 2.3 -Undermining/Tunneling No No -Circular Undermining No No -Wound/Ulcer Outcome Not Healed Not Healed Not Healed -Ulcer Cleansing Rinsed/ Rinsed/ Irrigated with Irrigated with Saline Saline -Foul Odor after Cleansing No No -Bioengineered Tissue No No -Bleeding Controlled with Pressure -Treatment Response Procedure Procedure Tolerated Well Tolerated Well -Offloading No -Debridement - Subq, 1st 20sq cm No Pain Scale: 0-10 Numeric Is Patient Pain Free? Yes Yes Yes 04/28/22 09:56 Wound Center Nurse 2 #7 left lower ABD -Time 09:56 -Correct Patient Yes -Correct Side, Site, Position Yes -Correct Procedure Yes -Procedure Performed Yes -Type of Procedure Debridement -Clinical Debridement Subcutaneous -Tissue Removed Subcutaneous -Post Debridement (cm) - Length 0.3 -Post Debridement (cm) - Width 0.9 -Post Debridement (cm) - Depth 2.4 -Total Square (Post) (cm) 0.27 -Area of Debridement (cm) - Length 0.3 -Area of Debridement (cm) - Width 0.9 -Total Square (Area) (cm) 0.27 -Tunneling No -Tunneling Position (O'clock) -Tunneling Distance (cm) -Tunneling Position #2 (O'clock) -Tunneling Distance #2 (cm) -Undermining/Tunneling No -Circular Undermining No -Wound/Ulcer Outcome Not Healed -Ulcer Cleansing Rinsed/ Irrigated with Saline -Foul Odor after Cleansing No -Bioengineered Tissue No -Bleeding Controlled with Pressure -Treatment Response Procedure Tolerated Well -Offloading No -Debridement - Subq, 1st 20sq cm Yes #2 Mid abd/Bellybutton -Time 09:57 -Correct Patient Yes -Correct Side, Site, Position Yes -Correct Procedure Yes -Procedure Performed No -Type of Procedure -Clinical Debridement -Tissue Removed -Post Debridement (cm) - Length 0 -Post Debridement (cm) - Width 0 -Post Debridement (cm) - Depth 0 -Total Square (Post) (cm) 0 -Area of Debridement (cm) - Length -Area of Debridement (cm) - Width -Total Square (Area) (cm) -Tunneling No -Tunneling Position (O'clock) -Tunneling Distance (cm) -Undermining/Tunneling No -Circular Undermining No -Wound/Ulcer Outcome Healed- Epithelialized -Ulcer Cleansing -Foul Odor after Cleansing -Bioengineered Tissue -Bleeding Controlled with -Treatment Response -Offloading -Debridement - Subq, 1st 20sq cm Pain Scale: 0-10 Numeric Is Patient Pain Free? Yes WC - Nurse 3 - General Ulcer D/C NN Start: 09/13/21 08:37 Freq: Status: Active Protocol: Activity Type Activity Date Activity User E-Sign Co-Sign Detail Recorded Client Recorded Date Recorded By Document 09/13/21 08:41 DL [id number] 09/13/21 09:05 DL Edit Result 09/13/21 08:41 DL (1) [id number] 09/14/21 06:58 PL Document 09/16/21 09:54 JF [id number] 09/16/21 09:56 JF Edit Result 09/16/21 09:54 JF (2) [id number] 09/16/21 14:34 PL Document 09/20/21 08:41 KR [id number] 09/20/21 08:44 KR Document 09/20/21 09:16 BMF [id number] 09/20/21 09:16 BMF Document 09/27/21 08:47 KR [id number] 09/27/21 08:49 KR Edit Result 09/27/21 08:47 KR (3) [id number] 09/27/21 09:18 BMF Edit Result 09/27/21 08:47 KR (4) [id number] 09/28/21 07:18 PL Document 09/30/21 10:21 BMF [id number] 09/30/21 10:22 BMF Document 10/04/21 08:33 KR [id number] 10/04/21 08:34 KR Document 10/07/21 10:11 DL [id number] 10/07/21 10:13 DL (1) #2 Mid abd/Bellybutton - NPWT Application Charge NPWT - Multiple => NPWT </= 50 sq cm Locations => ($) (2) #2 Mid abd/Bellybutton - NPWT Application Charge NPWT & Debridement => NPWT - Multiple (nc) => Locations (3) #7 left lower ABD - Ulcer Cleansing => Soap and Water - Foul Odor after Cleansing => No - Negative Pressure Wound Therapy => Continue - Setting (mmHg) => 150 - Negative Pressure is => Continuous - NPWT Application Charge => NPWT & Debridement => (nc) #2 Mid abd/Bellybutton - Foul Odor after Cleansing => No - Negative Pressure Wound Therapy Continue => - Setting (mmHg) 150 => - Negative Pressure is Continuous => - Regranex (If Applicable) Continue => - Primary Dressing Applied => Aquacel AG 4x4 - Primary Dressing Covered/Secured with => Dry Gauze - NPWT Application Charge NPWT </= 50 sq cm => ($) => - Aquacel AG 4x4 => 1 (4) #7 left lower ABD - NPWT Application Charge NPWT & Debridement => NPWT </= 50 sq cm (nc) => ($) 09/13/21 09/16/21 09/20/21 08:41 09:54 08:41 Vital Signs Temperature (97.8 F-99.1 F) 96.8 F L 97.0 F L Temperature Source Temporal Temporal Pulse Rate (60-100) 73 74 Pulse Location Monitor Monitor Respiratory Rate (12-18) 18 Respiratory rate source Observation Blood Pressure (90/60-120/80) 143/63 H 147/84 H Blood Pressure Mean (mm Hg) 89 105 Source Monitor Monitor Position Semi-Fowlers Blood Pressure Location Left Arm Pain Scale: 0-10 Numeric Is Patient Pain Free? Yes Yes Yes Wound Care Nurse 3 #7 left lower ABD -Ulcer Cleansing Soap and Water Rinsed/ Irrigated with Saline -Foul Odor after Cleansing No No -Negative Pressure Wound Therapy Continue Continue -Setting (mmHg) 150 150 -Negative Pressure is Continuous Continuous -Regranex (If Applicable) -Primary Dressing Applied -Primary Dressing Covered/Secured with -Other Covering -NPWT Application Charge NPWT - Multiple NPWT & Locations Debridement (nc ) -Aquacel AG 4x4 #2 Mid abd/Bellybutton -Ulcer Cleansing Soap and Water Rinsed/ Irrigated with Saline -Foul Odor after Cleansing No No -Negative Pressure Wound Therapy Continue Continue -Setting (mmHg) 150 150 -Negative Pressure is Continuous Continuous -Primary Dressing Applied -Primary Dressing Covered/Secured with -Other Covering -NPWT Application Charge NPWT </= 50 sq NPWT - Multiple cm ($) Locations -Aquacel AG 4x4 Treatment Response Procedure Tolerated Well WC - Visit Discharge Discharge Condition Stable Stable Ambulatory Status Ambulatory Ambulatory Transportation Private Auto Private Auto Accompanied by Medication Reconcilliation completed & Yes provided to patient/care provider Clinical Summary of Care Provided Yes Notes: Wite foam to White foam tunnel at Med applied to Aabd/ tunneled areas bellybutton to both ulcers. topped with black foam. 09/20/21 09/27/21 09/30/21 09:16 08:47 10:21 Vital Signs Temperature (97.8 F-99.1 F) 97.8 F Temperature Source Temporal Pulse Rate (60-100) 71 Pulse Location Monitor Respiratory Rate (12-18) Respiratory rate source Blood Pressure (90/60-120/80) 139/92 H Blood Pressure Mean (mm Hg) 107 Source Monitor Position Sitting Blood Pressure Location Right Arm Pain Scale: 0-10 Numeric Is Patient Pain Free? Yes Yes Yes Wound Care Nurse 3 #7 left lower ABD -Ulcer Cleansing Rinsed/ Soap and Water Rinsed/ Irrigated with Irrigated with Saline Saline -Foul Odor after Cleansing No No No -Negative Pressure Wound Therapy Continue Continue -Setting (mmHg) 150 150 -Negative Pressure is Continuous Continuous -Regranex (If Applicable) -Primary Dressing Applied Aquacel AG 4x4 -Primary Dressing Covered/Secured with Secured with Tape,Other -Other Covering abd -NPWT Application Charge NPWT </= 50 sq NPWT & cm ($) Debridement (nc ) -Aquacel AG 4x4 1 #2 Mid abd/Bellybutton -Ulcer Cleansing Rinsed/ Soap and Water Rinsed/ Irrigated with Irrigated with Saline Saline -Foul Odor after Cleansing No No No -Negative Pressure Wound Therapy -Setting (mmHg) -Negative Pressure is -Primary Dressing Applied Aquacel AG 4x4 Aquacel AG 4x4 Aquacel AG 4x4 -Primary Dressing Covered/Secured with Secured with Dry Gauze Dry Gauze, Tape,Other Secured with Tape -Other Covering abd -NPWT Application Charge -Aquacel AG 4x4 0 1 1 Treatment Response Procedure Procedure Tolerated Well Tolerated Well WC - Visit Discharge Discharge Condition Stable Stable Stable Ambulatory Status Ambulatory Ambulatory Ambulatory Transportation Private Auto Private Auto Private Auto Accompanied by mom Medication Reconcilliation completed & provided to patient/care provider Clinical Summary of Care Provided Notes: 10/04/21 10/07/21 08:33 10:11 Vital Signs Temperature (97.8 F-99.1 F) 97.2 F L Temperature Source Temporal Pulse Rate (60-100) 68 Pulse Location Monitor Respiratory Rate (12-18) Respiratory rate source Blood Pressure (90/60-120/80) 128/80 H Blood Pressure Mean (mm Hg) 96 Source Monitor Position Sitting Blood Pressure Location Right Arm Pain Scale: 0-10 Numeric Is Patient Pain Free? Yes Yes Wound Care Nurse 3 #7 left lower ABD -Ulcer Cleansing Rinsed/ Rinsed/ Irrigated with Irrigated with Saline Saline -Foul Odor after Cleansing No -Negative Pressure Wound Therapy Continue Continue -Setting (mmHg) 150 150 -Negative Pressure is Continuous Continuous -Regranex (If Applicable) Continue -Primary Dressing Applied -Primary Dressing Covered/Secured with -Other Covering -NPWT Application Charge NPWT </= 50 sq NPWT </= 50 sq cm ($) cm ($) -Aquacel AG 4x4 #2 Mid abd/Bellybutton -Ulcer Cleansing Rinsed/ Irrigated with Saline -Foul Odor after Cleansing -Negative Pressure Wound Therapy -Setting (mmHg) -Negative Pressure is -Primary Dressing Applied -Primary Dressing Covered/Secured with Dry Gauze, Secured with Tape -Other Covering -NPWT Application Charge -Aquacel AG 4x4 Treatment Response Procedure Tolerated Well WC - Visit Discharge Discharge Condition Stable Stable Ambulatory Status Ambulatory Ambulatory Transportation Private [employer] Private Auto Accompanied by Medication Reconcilliation completed & provided to patient/care provider Clinical Summary of Care Provided Notes: Assessment/Plan Assessment/Plan (1) Surgical wound breakdown: CODE(S): T81.31XA - Disruption of external operation (surgical) wound, not elsewhere classified, initial encounter QUALIFIERS: Encounter type: initial encounter Qualified Code(s): T81.31XA - Disruption of external operation (surgical) wound, not elsewhere classified, initial encounter (2) Non-healing surgical wound: CODE(S): T81.89XA - Other complications of procedures, not elsewhere classified, initial encounter QUALIFIERS: Encounter type: initial encounter Qualified Code(s): T81.89XA - Other complications of procedures, not elsewhere classified, initial encounter PLAN: Debridement done as documented above, procedure was well-tolerated. Continues to show good improvement. Umbilical wound is healed. Better granulation. Continue wound VAC at 150 mmHg. Come in for a nurse visit on Monday, and Monday for change. Continue umbilical area with gauze. Depth/tunneling still present but it is dry. Increased protein intake, vitamin C and zinc recommended. She voiced understanding. Her questions were answered and she was advised to call with any further questions or concerns. Follow-up in 1 week. This note was generated with [employer] software. It may contain incorrect words, spelling, and punctuation that were not noted in checking the note before signing.
== END 2021-10-09 23:59 | disposition home or self-care (01) ==
LOC: WC 09:30
PROVIDERS: Visit Provider Internal Medicine
DX: T81.31XA Disruption of external operation (surgical) wound, not elsewhere classified, initial encounter (principal); T81.89XA Other complications of procedures, not elsewhere classified, initial encounter; B37.2 Candidiasis of skin and nail; Y83.8 Other surgical procedures as the cause of abnormal reaction of the patient, or of later complication, without mention of misadventure at the time of the procedure; K95.89 Other complications of other bariatric procedure
CPT/HCPCS: 97605; 11042; 87070; 87075; 87077; 87186; 87205

== ENCOUNTER 2021-11-04 10:00 | Outpatient (RCR) | payer MEDICAID, SELFPAY ==
[2021-10-10 00:36] VITALS: BP 157/74; PULSE 66; RESP 16; TEMP 36.9; BMI 28.4
[2021-10-11 09:06] VITALS: BP 130/90; PULSE 57; RESP 18; TEMP 36.4; BMI 28.4
[2021-10-14 09:55] VITALS: BP 153/84; PULSE 61; TEMP 36.4; BMI 28.4
--- NOTE | 2021-10-14 10:19 | PN.PCM_ITS ---
History of Present Illness Date of Service: 10/14/21 Chief Complaint: Surgical wound break down History of Wound: Ms. Quintero is a 35-year-old who presents to the wound center due to surgical wound breakdown. Had extensive surgery done in June to remove excess skin following weight loss from bariatric surgery. Surgery was done in [place]. Surgery was uneventful and for the most part has done really well post surgery. Had some areas of wound breakdown. Has been applying Medihoney and Aquacel without any significant improvement. Minimal clear with blood tingled drainage. She was referred here by her primary care physician. She denies any history of diabetes mellitus, tobacco or alcohol abuse. Feels well otherwise. Progress of Wound: Improving. No new concerns at this time. Objective Data Objective Data Vital Signs: Vital Signs Temp Pulse Resp BP 97.6 F L 61 18 153/84 H 10/14/21 09:55 10/14/21 09:55 10/11/21 09:06 10/14/21 09:55 Weight: 160 lb 11.834 oz Body Mass Index (BMI) 28.4 Charges/Coding Procedures Integumentary 111xxx-113xx: 17794 Hollie subq tissue 20 sq cm/< Physical Exam Const alert, oriented x3 and no apparent distress General Appearance: cooperative, comfortable, well kempt and well developed HEENT normocephalic and head/scalp atraumatic Head and Scalp: normal to inspection and normocephalic Eyes EOMs intact bilaterally General Eye: normal appearance of both eyes Neck full ROM General: normal visual inspection Resp normal respiratory effort Effort and Inspection: able to speak in complete sentences Skin Wounds: wounds noted Neuro oriented x3, CN's II-XII intact bilaterally, moves all extremities and no focal motor deficits Psych mental status grossly normal Appearance: grossly normal Attitude: calm Activity / Motor Behavior: appropriate eye contact Speech: normal speech Thought Process: normal thought process Debridement Note Debridement Note Wound debrided: Lower Abdomen Type of Debridement: Excisional debridement Anesthesia Used: 4% Lidocaine Solution Depth: Down to and including healthy tissue and in the subcutaneous layer Percentage of wound debrided: 100 Instrument Used: 3mm curette Tissue Removed: Slough and devitalized tissue Severity: Fat Layer Exposed Amount of bleeding with debridement: Mild Bleeding Controlled with: Pressure Patient tolerated procedure: Patient tolerated procedure well Post-Debridement Measurements and Additional Note: Post-Debridement Measurements/Treatment WC - Nurse 1 - General Ulcer Assessment Start: 10/11/21 09:06 Freq: Status: Active Protocol: KANG Activity Type Activity Date Activity User E-Sign Co-Sign Detail Recorded Client Recorded Date Recorded By Document 10/11/21 09:06 DL [id number] 10/11/21 09:24 DL Document 10/14/21 09:55 AK [id number] 10/14/21 10:02 AK 10/11/21 10/14/21 09:06 09:55 - Today's Visit Information Type of service Nurse-only Follow-up Visit Visit (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/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 ) Arrival Mode Ambulatory Ambulatory Transfer Assistance None Patient Identification Verified (Name & Yes Yes ) Patient Requires Transmission-Based No No Precautions Safety Precautions NA Height and Weight Body Mass Index (BMI) 28.4 28.4 BMI Classification Overweight Overweight Vital Signs Temperature (97.8 F-99.1 F) 97.5 F L 97.6 F L Temperature Source Temporal Temporal Pulse Rate (60-100) 57 L 61 Pulse Location Monitor Monitor Respiratory Rate (12-18) 18 Respiratory rate source Observation Blood Pressure (90/60-120/80) 130/90 H 153/84 H Blood Pressure Mean (mm Hg) 103 107 Source Monitor Monitor History Since Last Visit- (Skip if this is Patient's initial visit) Have you changed medications since your No No last visit? Any new allergies or adverse reactions No No Had a fall/change in ADL's that may No No increase risk of falls Signs or symptoms of abuse and/or No No neglect since last visit Have you been in the hospital since your No No last visit? Has dressing in place as prescribed Yes Yes Has compression in place as prescribed N/A N/A Has offloadiing in place as prescribed Yes N/A Experienced any changes in pain level or No No management Left Footwear Regular Shoe Right Footwear Regular Shoe Pain Scale: 0-10 Numeric Is Patient Pain Free? Yes Yes - Nurse 1 - General Ulcer Measurement Start: 10/11/21 09:06 Freq: Status: Active Protocol: Activity Type Activity Date Activity User E-Sign Co-Sign Detail Recorded Client Recorded Date Recorded By Document 10/11/21 09:06 DL [id number] 10/11/21 09:24 DL Document 10/14/21 09:55 CO [id number] 10/14/21 10:02 AK 10/11/21 10/14/21 09:06 09:55 Wound Center Nurse 1 #7 left lower ABD -Combined with other wound No -Current Size (cm) - Length 0.3 -Current Size (cm) - Width 0.9 -Current Size (cm) - Depth 1.4 -Total Square Cm 0.27 -Photo Taken No No -Tunneling No -Tunneling Position (O'clock) 9 -Tunneling Distance (cm) 2 -Undermining/Tunneling No -Circular Undermining No -Change in Wound Grade/Stage No -Exudate Amt Small Medium -Exudate Type Serosanguineous -Wound Margin Distinct, Distinct, Outline Outline Attached Attached -Granulation Amt None Present (0 %) -Granulation Quality N/A -Slough/Fibrin Yes -Necrosis Amt Small (1-33%) -Necrotic Tissue Type Adherent Slough -Structure Exposed N/A -Texture (Anca-wound Skin Appearance) Scarring,Rash Assessed, Scarring -Moisture (Anca-wound Skin Appearance) No Abnormality, Assessed -Color (Anca-wound Skin Appearance) No Abnormality, Assessed -Temperature (Anca-wound Skin No Abnormality Appearance) (Pt Warm) -Tenderness on Palpation (Anca-wound Yes No Skin Appearance) -Ulcer Cleansing Soap and Water Rinsed/ Irrigated with Saline -Foul Odor after Cleansing No No -Anesthetic Used 4% Lidocaine Solution WC - Nurse 2 - General Ulcer CM Notes Start: 10/11/21 09:06 Freq: Status: Active Protocol: Activity Type Activity Date Activity User E-Sign Co-Sign Detail Recorded Client Recorded Date Recorded By Document 10/14/21 10:16 MW [id number] 10/14/21 10:18 MW 10/14/21 10:16 Wound Center Nurse 2 -Time 10:17 -Correct Patient Yes -Correct Side, Site, Position Yes -Correct Procedure Yes -Procedure Performed Yes -Type of Procedure Debridement -Clinical Debridement Subcutaneous -Tissue Removed Subcutaneous -Post Debridement (cm) - Length 0.3 -Post Debridement (cm) - Width 0.7 -Post Debridement (cm) - Depth 1.4 -Total Square (Post) (cm) 0.21 -Area of Debridement (cm) - Length 0.3 -Area of Debridement (cm) - Width 0.7 -Total Square (Area) (cm) 0.21 -Tunneling No -Undermining/Tunneling No -Circular Undermining No -Wound/Ulcer Outcome Not Healed -Ulcer Cleansing Rinsed/ Irrigated with Saline -Foul Odor after Cleansing No -Bioengineered Tissue No -Bleeding Controlled with Pressure -Treatment Response Procedure Tolerated Well -Offloading No -Debridement - Subq, 1st 20sq cm Yes Pain Scale: 0-10 Numeric Is Patient Pain Free? Yes - Nurse 3 - General Ulcer D/C NN Start: 10/11/21 09:06 Freq: Status: Active Protocol: Activity Type Activity Date Activity User E-Sign Co-Sign Detail Recorded Client Recorded Date Recorded By Document 10/11/21 09:06 DL [id number] 10/11/21 09:24 DL 10/11/21 09:06 Vital Signs Temperature (97.8 F-99.1 F) 97.5 F L Temperature Source Temporal Pulse Rate (60-100) 57 L Pulse Location Monitor Respiratory Rate (12-18) 18 Respiratory rate source Observation Blood Pressure (90/60-120/80) 130/90 H Blood Pressure Mean (mm Hg) 103 Source Monitor Pain Scale: 0-10 Numeric Is Patient Pain Free? Yes Wound Care Nurse 3 #7 left lower ABD -Ulcer Cleansing Soap and Water -Foul Odor after Cleansing No -Negative Pressure Wound Therapy Continue -Setting (mmHg) 150 -Negative Pressure is Continuous -NPWT Application Charge NPWT </= 50 sq cm ($) WC - Visit Discharge Discharge Condition Stable Ambulatory Status Ambulatory Transportation Private Auto Assessment/Plan Assessment/Plan (1) Surgical wound breakdown: CODE(S): T81.31XA - Disruption of external operation (surgical) wound, not elsewhere classified, initial encounter QUALIFIERS: Encounter type: initial encounter Qualified Code(s): T81.31XA - Disruption of external operation (surgical) wound, not elsewhere classified, initial encounter (2) Non-healing surgical wound: CODE(S): T81.89XA - Other complications of procedures, not elsewhere classified, initial encounter QUALIFIERS: Encounter type: initial encounter Qualified Code(s): T81.89XA - Other complications of procedures, not elsewhere classified, initial encounter PLAN: Debridement done as documented above, procedure was well-tolerated. Continues to show good improvement. Umbilical wound stays healed. Will take a Vac holiday for a week then reassess. For now, Aquacel extra daily to twice daily depending on drainage. Cover with foam dressing. Increased protein intake, vitamin C and zinc recommended. She voiced understanding. Her questions were answered and she was advised to call with any further questions or concerns. Follow-up in 1 week. This note was generated with [employer] dictation software. It may contain incorrect words, spelling, and punctuation that were not noted in checking the note before signing.
[2021-10-21 10:00] VITALS: BP 134/90; PULSE 64; RESP 20; TEMP 36.6; BMI 28.4
--- NOTE | 2021-10-21 12:53 | PN.PCM_ITS ---
History of Present Illness Date of Service: 10/21/21 Chief Complaint: Surgical wound break down History of Wound: Ms. Quintero is a 35-year-old who presents to the wound center due to surgical wound breakdown. Had extensive surgery done in June to remove excess skin following weight loss from bariatric surgery. Surgery was done in [place]. Surgery was uneventful and for the most part has done really well post surgery. Had some areas of wound breakdown. Has been applying Medihoney and Aquacel without any significant improvement. Minimal clear with blood tingled drainage. She was referred here by her primary care physician. She denies any history of diabetes mellitus, tobacco or alcohol abuse. Feels well otherwise. Progress of Wound: Took a wound Vac holiday lat week. It appears there has been some worsening in size. She denies increased drainage or pain. Objective Data Objective Data Vital Signs: Vital Signs Temp Pulse Resp BP 97.8 F 64 20 H 134/90 H 10/21/21 10:00 10/21/21 10:00 10/21/21 10:00 10/21/21 10:00 Weight: 160 lb 11.834 oz Body Mass Index (BMI) 28.4 Charges/Coding Procedures Integumentary 111xxx-113xx: 12237 Hollie subq tissue 20 sq cm/< Physical Exam Const alert, oriented x3 and no apparent distress General Appearance: cooperative, comfortable, well kempt and well developed HEENT normocephalic and head/scalp atraumatic Head and Scalp: normal to inspection and normocephalic Eyes EOMs intact bilaterally General Eye: normal appearance of both eyes Neck full ROM General: normal visual inspection Resp normal respiratory effort Effort and Inspection: able to speak in complete sentences Skin Wounds: wounds noted Neuro oriented x3, CN's II-XII intact bilaterally, moves all extremities and no focal motor deficits Psych mental status grossly normal Appearance: grossly normal Attitude: calm Activity / Motor Behavior: appropriate eye contact Speech: normal speech Thought Process: normal thought process Debridement Note Debridement Note Wound debrided: Lower abdomen Type of Debridement: Excisional debridement Anesthesia Used: 4% Lidocaine Solution Depth: Down to and including healthy tissue and in the subcutaneous layer Percentage of wound debrided: 100 Instrument Used: 3mm curette Tissue Removed: Slough and devitalized tissue Severity: Fat Layer Exposed Amount of bleeding with debridement: Mild Bleeding Controlled with: Pressure Patient tolerated procedure: Patient tolerated procedure well Post-Debridement Measurements and Additional Note: Post-Debridement Measurements/Treatment WC - Nurse 1 - General Ulcer Assessment Start: 10/11/21 09:06 Freq: Status: Active Protocol: KANG Activity Type Activity Date Activity User E-Sign Co-Sign Detail Recorded Client Recorded Date Recorded By Document 10/11/21 09:06 DL [id number] 10/11/21 09:24 DL Document 10/14/21 09:55 AK [id number] 10/14/21 10:02 AK Document 10/21/21 10:00 DL [id number] 10/21/21 10:07 DL 10/11/21 10/14/21 10/21/21 09:06 09:55 10:00 - Today's Visit Information Type of service Nurse-only Follow-up Visit Follow-up Visit Visit (Physician/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 TEACHER (Physician/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 TEACHER ) ) Arrival Mode Ambulatory Ambulatory Ambulatory Transfer Assistance None None Patient Identification Verified (Name & Yes Yes Yes ) Patient Requires Transmission-Based No No No Precautions Safety Precautions NA Height and Weight Body Mass Index (BMI) 28.4 28.4 28.4 BMI Classification Overweight Overweight Overweight Vital Signs Temperature (97.8 F-99.1 F) 97.5 F L 97.6 F L 97.8 F Temperature Source Temporal Temporal Temporal Pulse Rate (60-100) 57 L 61 64 Pulse Location Monitor Monitor Monitor Respiratory Rate (12-18) 18 20 H Respiratory rate source Observation Observation Blood Pressure (90/60-120/80) 130/90 H 153/84 H 134/90 H Blood Pressure Mean (mm Hg) 103 107 104 Source Monitor Monitor Monitor History Since Last Visit- (Skip if this is Patient's initial visit) Have you changed medications since your No No No last visit? Any new allergies or adverse reactions No No No Had a fall/change in ADL's that may No No No increase risk of falls Signs or symptoms of abuse and/or No No No neglect since last visit Have you been in the hospital since your No No No last visit? Has dressing in place as prescribed Yes Yes Yes Has compression in place as prescribed N/A N/A N/A Has offloadiing in place as prescribed Yes N/A N/A Experienced any changes in pain level or No No No management Left Footwear Regular Shoe Right Footwear Regular Shoe Pain Scale: 0-10 Numeric Is Patient Pain Free? Yes Yes Yes WC - Nurse 1 - General Ulcer Measurement Start: 10/11/21 09:06 Freq: Status: Active Protocol: Activity Type Activity Date Activity User E-Sign Co-Sign Detail Recorded Client Recorded Date Recorded By Document 10/11/21 09:06 DL [id number] 10/11/21 09:24 DL Document 10/14/21 09:55 AK [id number] 10/14/21 10:02 AK Document 10/21/21 10:00 DL [id number] 10/21/21 10:07 DL 10/11/21 10/14/21 10/21/21 09:06 09:55 10:00 Wound Center Nurse 1 #7 left lower ABD -Combined with other wound No -Current Size (cm) - Length 0.3 0.8 -Current Size (cm) - Width 0.9 0.5 -Current Size (cm) - Depth 1.4 0.6 -Total Square Cm 0.27 0.40 -Photo Taken No No No -Tunneling No -Tunneling Position (O'clock) 9 9 -Tunneling Distance (cm) 2 1.4 -Undermining/Tunneling No -Circular Undermining No -Change in Wound Grade/Stage No -Exudate Amt Small Medium Small -Exudate Type Serosanguineous Serosanguineous -Wound Margin Distinct, Distinct, Distinct, Outline Outline Outline Attached Attached Attached -Granulation Amt None Present (0 Small (1-33%) %) -Granulation Quality N/A Red -Slough/Fibrin Yes -Necrosis Amt Small (1-33%) None Present (0 %) -Necrotic Tissue Type Adherent Slough -Structure Exposed N/A N/A -Texture (Anca-wound Skin Appearance) Scarring,Rash Assessed, Scarring Scarring -Moisture (Anca-wound Skin Appearance) No Abnormality, No Abnormality Assessed -Color (Anca-wound Skin Appearance) No Abnormality, No Abnormality Assessed -Temperature (Anca-wound Skin No Abnormality No Abnormality Appearance) (Pt Warm) (Pt Warm) -Tenderness on Palpation (Anca-wound Yes No No Skin Appearance) -Ulcer Cleansing Soap and Water Rinsed/ Irrigated with Saline -Foul Odor after Cleansing No No No -Anesthetic Used 4% Lidocaine 4% Lidocaine Solution Solution WC - Nurse 2 - General Ulcer CM Notes Start: 10/11/21 09:06 Freq: Status: Active Protocol: Activity Type Activity Date Activity User E-Sign Co-Sign Detail Recorded Client Recorded Date Recorded By Document 10/14/21 10:16 MW [id number] 10/14/21 10:18 MW Document 10/21/21 10:11 MW [id number] 10/21/21 10:16 MW 10/14/21 10/21/21 10:16 10:11 Wound Center Nurse 2 #7 left lower ABD -Time 10:17 10:12 -Correct Patient Yes Yes -Correct Side, Site, Position Yes Yes -Correct Procedure Yes Yes -Procedure Performed Yes Yes -Type of Procedure Debridement Debridement -Clinical Debridement Subcutaneous Subcutaneous -Tissue Removed Subcutaneous Subcutaneous -Post Debridement (cm) - Length 0.3 0.4 -Post Debridement (cm) - Width 0.7 0.9 -Post Debridement (cm) - Depth 1.4 1.8 -Total Square (Post) (cm) 0.21 0.36 -Area of Debridement (cm) - Length 0.3 0.4 -Area of Debridement (cm) - Width 0.7 0.9 -Total Square (Area) (cm) 0.21 0.36 -Tunneling No Yes -Tunneling Position (O'clock) 9 -Tunneling Distance (cm) 1.9 -Undermining/Tunneling No No -Circular Undermining No No -Wound/Ulcer Outcome Not Healed Not Healed -Ulcer Cleansing Rinsed/ Rinsed/ Irrigated with Irrigated with Saline Saline -Foul Odor after Cleansing No No -Bioengineered Tissue No No -Bleeding Controlled with Pressure Pressure -Treatment Response Procedure Procedure Tolerated Well Tolerated Well -Offloading No No -Debridement - Subq, 1st 20sq cm Yes Yes Pain Scale: 0-10 Numeric Is Patient Pain Free? Yes Yes WC - Nurse 3 - General Ulcer D/C NN Start: 10/11/21 09:06 Freq: Status: Active Protocol: Activity Type Activity Date Activity User E-Sign Co-Sign Detail Recorded Client Recorded Date Recorded By Document 10/11/21 09:06 DL [id number] 10/11/21 09:24 DL Document 10/14/21 10:18 MW [id number] 10/14/21 10:20 MW Document 10/21/21 10:45 RB [id number] 10/21/21 10:46 RB 10/11/21 10/14/21 10/21/21 09:06 10:18 10:45 Vital Signs Temperature (97.8 F-99.1 F) 97.5 F L Temperature Source Temporal Pulse Rate (60-100) 57 L Pulse Location Monitor Respiratory Rate (12-18) 18 Respiratory rate source Observation Blood Pressure (90/60-120/80) 130/90 H Blood Pressure Mean (mm Hg) 103 Source Monitor Pain Scale: 0-10 Numeric Is Patient Pain Free? Yes Yes Yes Teaching: Wound Center Dressing Your Wound -Person Taught Patient -Teaching Method Discussion, Demonstration -Response to teaching Verbalize understanding Wound Care Nurse 3 #7 left lower ABD -Ulcer Cleansing Soap and Water Rinsed/ Rinsed/ Irrigated with Irrigated with Saline Saline -Foul Odor after Cleansing No No -Negative Pressure Wound Therapy Continue N/A Continue -Setting (mmHg) 150 150 -Negative Pressure is Continuous Continuous -Primary Dressing Applied Aquacel Extra, Mepilex Border -NPWT Application Charge NPWT </= 50 sq NPWT & cm ($) Debridement (nc ) -Aquacel Extra 1 -Mepilex Border 1 Anca-Wound Care Barrier Treatment Response Procedure Procedure Tolerated Well Tolerated Well WC - Visit Discharge Discharge Condition Stable Stable Stable Ambulatory Status Ambulatory Ambulatory Ambulatory Transportation Private Auto Private Auto Private Auto Accompanied by self Medication Reconcilliation completed & No No provided to patient/care provider Clinical Summary of Care Provided Yes Yes Assessment/Plan Assessment/Plan (1) Surgical wound breakdown: CODE(S): T81.31XA - Disruption of external operation (surgical) wound, not elsewhere classified, initial encounter QUALIFIERS: Encounter type: initial encounter Qualified Code(s): T81.31XA - Disruption of external operation (surgical) wound, not elsewhere classified, initial encounter (2) Non-healing surgical wound: CODE(S): T81.89XA - Other complications of procedures, not elsewhere classified, initial encounter QUALIFIERS: Encounter type: initial encounter Qualified Code(s): T81.89XA - Other complications of procedures, not elsewhere classified, initial encounter PLAN: Debridement done as documented above, procedure was well-tolerated. Continues to show good improvement. Umbilical wound stays healed. Wound VAC restarted at 150 mmHg due to some worsening noted during the holiday. Come in Monday for change. Increased protein intake, vitamin C and zinc recommended. She voiced understanding. Her questions were answered and she was advised to call with any further questions or concerns. Follow-up in 1 week. This note was generated with [employer] dictation software. It may contain incorrect words, spelling, and punctuation that were not noted in checking the note before signing.
[2021-10-25 10:49] VITALS: BP 153/96; PULSE 65; RESP 18; TEMP 36.4; BMI 28.4
[2021-10-28 09:58] VITALS: BP 140/82; PULSE 70; RESP 18; TEMP 36.6; BMI 28.4
--- NOTE | 2021-10-28 11:08 | PN.PCM_ITS ---
History of Present Illness Date of Service: 10/28/21 Chief Complaint: Surgical wound break down History of Wound: Ms. Quintero is a 35-year-old who presents to the wound center due to surgical wound breakdown. Had extensive surgery done in June to remove excess skin following weight loss from bariatric surgery. Surgery was done in [place]. Surgery was uneventful and for the most part has done really well post surgery. Had some areas of wound breakdown. Has been applying Medihoney and Aquacel without any significant improvement. Minimal clear with blood tingled drainage. She was referred here by her primary care physician. She denies any history of diabetes mellitus, tobacco or alcohol abuse. Feels well otherwise. Progress of Wound: No new concerns at this time. She states that drainage is improving. Objective Data Objective Data Vital Signs: Vital Signs Temp Pulse Resp BP 98 F 70 18 140/82 H 10/28/21 09:58 10/28/21 09:58 10/28/21 09:58 10/28/21 09:58 Weight: 160 lb 11.834 oz Body Mass Index (BMI) 28.4 Charges/Coding Procedures Integumentary 111xxx-113xx: [id number] Hollie subq tissue 20 sq cm/< Physical Exam Const alert, oriented x3 and no apparent distress General Appearance: cooperative, comfortable, well kempt and well developed HEENT normocephalic and head/scalp atraumatic Head and Scalp: normal to inspection and normocephalic Eyes EOMs intact bilaterally General Eye: normal appearance of both eyes Neck full ROM General: normal visual inspection Resp normal respiratory effort Effort and Inspection: able to speak in complete sentences Skin Wounds: wounds noted Neuro oriented x3, CN's II-XII intact bilaterally, moves all extremities and no focal motor deficits Psych mental status grossly normal Appearance: grossly normal Attitude: calm Activity / Motor Behavior: appropriate eye contact Speech: normal speech Thought Process: normal thought process Debridement Note Debridement Note Wound debrided: Lower abdomen Type of Debridement: Excisional debridement Depth: Down to and including healthy tissue and in the subcutaneous layer Percentage of wound debrided: 100 Instrument Used: 3mm curette Tissue Removed: Slough and devitalized tissue Severity: Fat Layer Exposed Amount of bleeding with debridement: Mild Bleeding Controlled with: Pressure Patient tolerated procedure: Patient tolerated procedure well Post-Debridement Measurements and Additional Note: Post-Debridement Measurements/Treatment WC - Nurse 1 - General Ulcer Assessment Start: 10/11/21 09:06 Freq: Status: Active Protocol: WC.LOWEXT Activity Type Activity Date Activity User E-Sign Co-Sign Detail Recorded Client Recorded Date Recorded By Document 10/11/21 09:06 DL [id number] 10/11/21 09:24 DL Document 10/14/21 09:55 AK [id number] 10/14/21 10:02 AK Document 10/21/21 10:00 DL [id number] 10/21/21 10:07 DL Document 10/25/21 10:49 DL [id number] 10/25/21 11:11 DL Document 10/28/21 09:58 RB [id number] 10/28/21 10:08 RB 10/11/21 10/14/21 10/21/21 09:06 09:55 10:00 WC - Today's Visit Information Type of service Nurse-only Follow-up Visit Follow-up Visit Visit (Physician/BOILER TESTING TECHNICIAN (Physician/BOILER TESTING TECHNICIAN ) ) Arrival Mode Ambulatory Ambulatory Ambulatory Transfer Assistance None None Patient Identification Verified (Name & Yes Yes Yes ) Patient Requires Transmission-Based No No No Precautions Safety Precautions NA Height and Weight Body Mass Index (BMI) 28.4 28.4 28.4 BMI Classification Overweight Overweight Overweight Vital Signs Temperature (97.8 F-99.1 F) 97.5 F L 97.6 F L 97.8 F Temperature Source Temporal Temporal Temporal Pulse Rate (60-100) 57 L 61 64 Pulse Location Monitor Monitor Monitor Respiratory Rate (12-18) 18 20 H Respiratory rate source Observation Observation Blood Pressure (90/60-120/80) 130/90 H 153/84 H 134/90 H Blood Pressure Mean (mm Hg) 103 107 104 Source Monitor Monitor Monitor Position Blood Pressure Location History Since Last Visit- (Skip if this is Patient's initial visit) Have you changed medications since your No No No last visit? Any new allergies or adverse reactions No No No Had a fall/change in ADL's that may No No No increase risk of falls Signs or symptoms of abuse and/or No No No neglect since last visit Have you been in the hospital since your No No No last visit? Has dressing in place as prescribed Yes Yes Yes Has compression in place as prescribed N/A N/A N/A Has offloadiing in place as prescribed Yes N/A N/A Experienced any changes in pain level or No No No management Left Footwear Regular Shoe Right Footwear Regular Shoe Pain Scale: 0-10 Numeric Is Patient Pain Free? Yes Yes Yes 10/25/21 10/28/21 10:49 09:58 WC - Today's Visit Information Type of service Nurse-only Follow-up Visit Visit (Physician/BOILER TESTING TECHNICIAN ) Arrival Mode Ambulatory Ambulatory Transfer Assistance None None Patient Identification Verified (Name & Yes Yes ) Patient Requires Transmission-Based No Precautions Safety Precautions Height and Weight Body Mass Index (BMI) 28.4 28.4 BMI Classification Overweight Overweight Vital Signs Temperature (97.8 F-99.1 F) 97.6 F L 98 F Temperature Source Temporal Temporal Pulse Rate (60-100) 65 70 Pulse Location Monitor Monitor Respiratory Rate (12-18) 18 18 Respiratory rate source Observation Observation Blood Pressure (90/60-120/80) 153/96 H 140/82 H Blood Pressure Mean (mm Hg) 115 101 Source Monitor Monitor Position Sitting Blood Pressure Location Left Arm History Since Last Visit- (Skip if this is Patient's initial visit) Have you changed medications since your No No last visit? Any new allergies or adverse reactions No No Had a fall/change in ADL's that may No No increase risk of falls Signs or symptoms of abuse and/or No No neglect since last visit Have you been in the hospital since your No No last visit? Has dressing in place as prescribed No Yes Has compression in place as prescribed Yes No Has offloadiing in place as prescribed N/A No Experienced any changes in pain level or Yes No management Left Footwear Right Footwear Pain Scale: 0-10 Numeric Is Patient Pain Free? Yes Yes - Nurse 1 - General Ulcer Measurement Start: 10/11/21 09:06 Freq: Status: Active Protocol: Activity Type Activity Date Activity User E-Sign Co-Sign Detail Recorded Client Recorded Date Recorded By Document 10/11/21 09:06 MEGAN [id number] 10/11/21 09:24 DL Document 10/14/21 09:55 AK [id number] 10/14/21 10:02 AK Document 10/21/21 10:00 DL [id number] 10/21/21 10:07 DL Document 10/25/21 10:49 DL [id number] 10/25/21 11:11 DL Document 10/28/21 09:58 RB [id number] 10/28/21 10:08 RB 10/11/21 10/14/21 10/21/21 09:06 09:55 10:00 Wound Center Nurse 1 #7 left lower ABD -Combined with other wound No -Current Size (cm) - Length 0.3 0.8 -Current Size (cm) - Width 0.9 0.5 -Current Size (cm) - Depth 1.4 0.6 -Total Square Cm 0.27 0.40 -Photo Taken No No No -Tunneling No -Tunneling Position (O'clock) 9 9 -Tunneling Distance (cm) 2 1.4 -Undermining/Tunneling No -Circular Undermining No -Change in Wound Grade/Stage No -Exudate Amt Small Medium Small -Exudate Type Serosanguineous Serosanguineous -Wound Margin Distinct, Distinct, Distinct, Outline Outline Outline Attached Attached Attached -Granulation Amt None Present (0 Small (1-33%) %) -Granulation Quality N/A Red -Slough/Fibrin Yes -Necrosis Amt Small (1-33%) None Present (0 %) -Necrotic Tissue Type Adherent Slough -Structure Exposed N/A N/A -Texture (Anca-wound Skin Appearance) Scarring,Rash Assessed, Scarring Scarring -Moisture (Anca-wound Skin Appearance) No Abnormality, No Abnormality Assessed -Color (Anca-wound Skin Appearance) No Abnormality, No Abnormality Assessed -Temperature (Anca-wound Skin No Abnormality No Abnormality Appearance) (Pt Warm) (Pt Warm) -Tenderness on Palpation (Anca-wound Yes No No Skin Appearance) -Ulcer Cleansing Soap and Water Rinsed/ Irrigated with Saline -Foul Odor after Cleansing No No No -Anesthetic Used 4% Lidocaine 4% Lidocaine Solution Solution 10/25/21 10/28/21 10:49 09:58 Wound Center Nurse 1 #7 left lower ABD -Combined with other wound No -Current Size (cm) - Length 0.6 -Current Size (cm) - Width 1 -Current Size (cm) - Depth 2 -Total Square Cm 0.6 -Photo Taken No -Tunneling Yes -Tunneling Position (O'clock) 9 9 -Tunneling Distance (cm) 1.9 2.4 -Undermining/Tunneling -Circular Undermining -Change in Wound Grade/Stage -Exudate Amt Medium Medium -Exudate Type Serosanguineous Serosanguineous -Wound Margin Distinct, Distinct, Outline Outline Attached Attached -Granulation Amt Large (67-100%) Medium (34-66%) -Granulation Quality Enders Enders -Slough/Fibrin Yes -Necrosis Amt None Present (0 Small (1-33%) %) -Necrotic Tissue Type -Structure Exposed N/A N/A -Texture (Anca-wound Skin Appearance) Scarring Assessed, Scarring -Moisture (Anca-wound Skin Appearance) No Abnormality Assessed -Color (Anca-wound Skin Appearance) No Abnormality Assessed -Temperature (Anca-wound Skin No Abnormality No Abnormality Appearance) (Pt Warm) (Pt Warm) -Tenderness on Palpation (Anca-wound No No Skin Appearance) -Ulcer Cleansing Soap and Water Wound Cleanser -Foul Odor after Cleansing No No -Anesthetic Used 4% Lidocaine Solution WC - Nurse 2 - General Ulcer CM Notes Start: 10/11/21 09:06 Freq: Status: Active Protocol: Activity Type Activity Date Activity User E-Sign Co-Sign Detail Recorded Client Recorded Date Recorded By Document 10/14/21 10:16 MW [id number] 10/14/21 10:18 MW Document 10/21/21 10:11 MW [id number] 10/21/21 10:16 MW Document 10/28/21 10:18 MW [id number] 10/28/21 10:23 MW 10/14/21 10/21/21 10/28/21 10:16 10:11 10:18 Wound Center Nurse 2 #7 left lower ABD -Time 10:17 10:12 10:18 -Correct Patient Yes Yes Yes -Correct Side, Site, Position Yes Yes Yes -Correct Procedure Yes Yes Yes -Procedure Performed Yes Yes Yes -Type of Procedure Debridement Debridement Debridement -Clinical Debridement Subcutaneous Subcutaneous Subcutaneous -Tissue Removed Subcutaneous Subcutaneous Subcutaneous -Post Debridement (cm) - Length 0.3 0.4 0.3 -Post Debridement (cm) - Width 0.7 0.9 0.4 -Post Debridement (cm) - Depth 1.4 1.8 1.5 -Total Square (Post) (cm) 0.21 0.36 0.12 -Area of Debridement (cm) - Length 0.3 0.4 0.3 -Area of Debridement (cm) - Width 0.7 0.9 0.4 -Total Square (Area) (cm) 0.21 0.36 0.12 -Tunneling No Yes Yes -Tunneling Position (O'clock) 9 9 -Tunneling Distance (cm) 1.9 1.5 -Undermining/Tunneling No No No -Circular Undermining No No No -Wound/Ulcer Outcome Not Healed Not Healed Not Healed -Ulcer Cleansing Rinsed/ Rinsed/ Rinsed/ Irrigated with Irrigated with Irrigated with Saline Saline Saline -Foul Odor after Cleansing No No No -Bioengineered Tissue No No No -Bleeding Controlled with Pressure Pressure Pressure -Treatment Response Procedure Procedure Procedure Tolerated Well Tolerated Well Tolerated Well -Offloading No No No -Debridement - Subq, 1st 20sq cm Yes Yes Yes Pain Scale: 0-10 Numeric Is Patient Pain Free? Yes Yes Yes WC - Nurse 3 - General Ulcer D/C NN Start: 10/11/21 09:06 Freq: Status: Active Protocol: Activity Type Activity Date Activity User E-Sign Co-Sign Detail Recorded Client Recorded Date Recorded By Document 10/11/21 09:06 DL [id number] 10/11/21 09:24 DL Document 10/14/21 10:18 MW [id number] 10/14/21 10:20 MW Document 10/21/21 10:45 RB [id number] 10/21/21 10:46 RB Document 10/25/21 10:49 DL [id number] 10/25/21 11:11 DL Document 10/28/21 11:00 RB [id number] 10/28/21 11:00 RB 10/11/21 10/14/21 10/21/21 09:06 10:18 10:45 Vital Signs Temperature (97.8 F-99.1 F) 97.5 F L Temperature Source Temporal Pulse Rate (60-100) 57 L Pulse Location Monitor Respiratory Rate (12-18) 18 Respiratory rate source Observation Blood Pressure (90/60-120/80) 130/90 H Blood Pressure Mean (mm Hg) 103 Source Monitor Pain Scale: 0-10 Numeric Is Patient Pain Free? Yes Yes Yes Teaching: Wound Center Dressing Your Wound -Person Taught Patient -Teaching Method Discussion, Demonstration -Response to teaching Verbalize understanding Wound Care Nurse 3 #7 left lower ABD -Ulcer Cleansing Soap and Water Rinsed/ Rinsed/ Irrigated with Irrigated with Saline Saline -Foul Odor after Cleansing No No -Negative Pressure Wound Therapy Continue N/A Continue -Setting (mmHg) 150 150 -Negative Pressure is Continuous Continuous -Primary Dressing Applied Aquacel Extra, Mepilex Border -Other Covering -NPWT Application Charge NPWT </= 50 sq NPWT & cm ($) Debridement (nc ) -Aquacel Extra 1 -Mepilex Border 1 Anca-Wound Care Barrier Treatment Response Procedure Procedure Tolerated Well Tolerated Well WC - Visit Discharge Discharge Condition Stable Stable Stable Ambulatory Status Ambulatory Ambulatory Ambulatory Transportation Private Auto Private Auto Private Auto Accompanied by self Medication Reconcilliation completed & No No provided to patient/care provider Clinical Summary of Care Provided Yes Yes 10/25/21 10/28/21 10:49 11:00 Vital Signs Temperature (97.8 F-99.1 F) 97.6 F L Temperature Source Temporal Pulse Rate (60-100) 65 Pulse Location Monitor Respiratory Rate (12-18) 18 Respiratory rate source Observation Blood Pressure (90/60-120/80) 153/96 H Blood Pressure Mean (mm Hg) 115 Source Monitor Pain Scale: 0-10 Numeric Is Patient Pain Free? Yes Yes Teaching: Wound Center Dressing Your Wound -Person Taught -Teaching Method -Response to teaching Wound Care Nurse 3 #7 left lower ABD -Ulcer Cleansing Soap and Water Wound Cleanser -Foul Odor after Cleansing No -Negative Pressure Wound Therapy Continue Continue -Setting (mmHg) 150 150 -Negative Pressure is Continuous Continuous -Primary Dressing Applied -Other Covering Dry gauze to red area -NPWT Application Charge NPWT </= 50 sq NPWT & cm ($) Debridement (nc ) -Aquacel Extra -Mepilex Border Anca-Wound Care Barrier Treatment Response Procedure Procedure Tolerated Well Tolerated Well WC - Visit Discharge Discharge Condition Stable Stable Ambulatory Status Ambulatory Ambulatory Transportation Private Auto Private Auto Accompanied by Medication Reconcilliation completed & No provided to patient/care provider Clinical Summary of Care Provided Yes Assessment/Plan Assessment/Plan (1) Surgical wound breakdown: CODE(S): T81.31XA - Disruption of external operation (surgical) wound, not elsewhere classified, initial encounter QUALIFIERS: Encounter type: initial encounter Qualified Code(s): T81.31XA - Disruption of external operation (surgical) wound, not elsewhere classified, initial encounter (2) Non-healing surgical wound: CODE(S): T81.89XA - Other complications of procedures, not elsewhere classified, initial encounter QUALIFIERS: Encounter type: initial encounter Qualified Code(s): T81.89XA - Other complications of procedures, not elsewhere classified, initial encounter PLAN: Debridement done as documented above, procedure was well-tolerated. Improving. Continue wound VAC at 150 mmHg. Come in Monday for change. Increased protein intake, vitamin C and zinc recommended. She voiced understanding. Her questions were answered and she was advised to call with any further questions or concerns. Follow-up in 1 week. This note was generated with [employer] dictation software. It may contain incorrect words, spelling, and punctuation that were not noted in checking the note before signing.
[2021-11-01 15:09] VITALS: BP 147/95; PULSE 71; RESP 16; TEMP 36.1; BMI 28.4
[2021-11-04 10:02] VITALS: BP 153/95; PULSE 69; RESP 18; TEMP 36.4; BMI 28.4
--- NOTE | 2021-11-04 10:23 | PCM.WC.PN ---
History of Present Illness Date of Service: 11/04/21 Chief Complaint: Surgical wound break down History of Wound: Ms. Quintero is a 35-year-old who presents to the wound center due to surgical wound breakdown. Had extensive surgery done in June to remove excess skin following weight loss from bariatric surgery. Surgery was done in [place]. Surgery was uneventful and for the most part has done really well post surgery. Had some areas of wound breakdown. Has been applying Medihoney and Aquacel without any significant improvement. Minimal clear with blood tingled drainage. She was referred here by her primary care physician. She denies any history of diabetes mellitus, tobacco or alcohol abuse. Feels well otherwise. Progress of Wound: Improving. No drainage in the past week per patient. No new concerns reported. Objective Data Objective Data Vital Signs: Vital Signs Temp Pulse Resp BP 97.6 F L 69 18 153/95 H 11/04/21 10:02 11/04/21 10:02 11/04/21 10:02 11/04/21 10:02 Oxygen Delivery Method Room Air Weight: 160 lb 11.834 oz Body Mass Index (BMI) 28.4 Charges/Coding Procedures Integumentary 111xxx-113xx: 17382 Hollie subq tissue 20 sq cm/< Physical Exam Const alert, oriented x3 and no apparent distress General Appearance: cooperative, comfortable, well kempt and well developed HEENT normocephalic and head/scalp atraumatic Head and Scalp: normal to inspection and normocephalic Eyes EOMs intact bilaterally General Eye: normal appearance of both eyes Neck full ROM General: normal visual inspection Resp normal respiratory effort Effort and Inspection: able to speak in complete sentences Skin Wounds: wounds noted Neuro oriented x3, CN's II-XII intact bilaterally, moves all extremities and no focal motor deficits Psych mental status grossly normal Appearance: grossly normal Attitude: calm Activity / Motor Behavior: appropriate eye contact Speech: normal speech Thought Process: normal thought process Debridement Note Debridement Note Wound debrided: Lower abdomen Type of Debridement: Excisional debridement Anesthesia Used: 4% Lidocaine Solution Depth: Down to and including healthy tissue and in the subcutaneous layer Percentage of wound debrided: 100 Instrument Used: - (1mm) Tissue Removed: Slough and devitalized tissue Severity: Fat Layer Exposed Bleeding Controlled with: Pressure Patient tolerated procedure: Patient tolerated procedure well Post-Debridement Measurements and Additional Note: Post-Debridement Measurements/Treatment WC - Nurse 1 - General Ulcer Assessment Start: 10/11/21 09:06 Freq: Status: Active Protocol: KANG Activity Type Activity Date Activity User E-Sign Co-Sign Detail Recorded Client Recorded Date Recorded By Document 10/11/21 09:06 DL [id number] 10/11/21 09:24 DL Document 10/14/21 09:55 AK [id number] 10/14/21 10:02 AK Document 10/21/21 10:00 DL [id number] 10/21/21 10:07 DL Document 10/25/21 10:49 DL [id number] 10/25/21 11:11 DL Document 10/28/21 09:58 RB [id number] 10/28/21 10:08 RB Document 11/01/21 15:09 BMF [id number] 11/01/21 15:10 BMF Document 11/04/21 10:02 DL [id number] 11/04/21 10:08 DL 10/11/21 10/14/21 10/21/21 09:06 09:55 10:00 WC - Today's Visit Information Type of service Nurse-only Follow-up Visit Follow-up Visit Visit (Physician/[facility] (Physician/[facility] ) ) Arrival Mode Ambulatory Ambulatory Ambulatory Transfer Assistance None None Patient Identification Verified (Name & Yes Yes Yes ) Patient Requires Transmission-Based No No No Precautions Safety Precautions NA Height and Weight Body Mass Index (BMI) 28.4 28.4 28.4 BMI Classification Overweight Overweight Overweight Vital Signs Temperature (97.8 F-99.1 F) 97.5 F L 97.6 F L 97.8 F Temperature Source Temporal Temporal Temporal Pulse Rate (60-100) 57 L 61 64 Pulse Location Monitor Monitor Monitor Respiratory Rate (12-18) 18 20 H Respiratory rate source Observation Observation Oxygen Delivery Method Blood Pressure (90/60-120/80) 130/90 H 153/84 H 134/90 H Blood Pressure Mean (mm Hg) 103 107 104 Source Monitor Monitor Monitor Position Blood Pressure Location History Since Last Visit- (Skip if this is Patient's initial visit) Have you changed medications since your No No No last visit? Any new allergies or adverse reactions No No No Had a fall/change in ADL's that may No No No increase risk of falls Signs or symptoms of abuse and/or No No No neglect since last visit Have you been in the hospital since your No No No last visit? Has dressing in place as prescribed Yes Yes Yes Has compression in place as prescribed N/A N/A N/A Has offloadiing in place as prescribed Yes N/A N/A Experienced any changes in pain level or No No No management Left Footwear Regular Shoe Right Footwear Regular Shoe Pain Scale: 0-10 Numeric Is Patient Pain Free? Yes Yes Yes 10/25/21 10/28/21 11/01/21 10:49 09:58 15:09 WC - Today's Visit Information Type of service Nurse-only Follow-up Visit Nurse-only Visit (Physician/[facility] Visit ) Arrival Mode Ambulatory Ambulatory Ambulatory Transfer Assistance None None None Patient Identification Verified (Name & Yes Yes Yes ) Patient Requires Transmission-Based No No Precautions Safety Precautions Height and Weight Body Mass Index (BMI) 28.4 28.4 28.4 BMI Classification Overweight Overweight Overweight Vital Signs Temperature (97.8 F-99.1 F) 97.6 F L 98 F 97 F L Temperature Source Temporal Temporal Temporal Pulse Rate (60-100) 65 70 71 Pulse Location Monitor Monitor Monitor Respiratory Rate (12-18) 18 18 16 Respiratory rate source Observation Observation Observation Oxygen Delivery Method Room Air Blood Pressure (90/60-120/80) 153/96 H 140/82 H 147/95 H Blood Pressure Mean (mm Hg) 115 101 112 Source Monitor Monitor Monitor Position Sitting Sitting Blood Pressure Location Left Arm Left Arm History Since Last Visit- (Skip if this is Patient's initial visit) Have you changed medications since your No No No last visit? Any new allergies or adverse reactions No No No Had a fall/change in ADL's that may No No No increase risk of falls Signs or symptoms of abuse and/or No No No neglect since last visit Have you been in the hospital since your No No No last visit? Has dressing in place as prescribed No Yes Yes Has compression in place as prescribed Yes No N/A Has offloadiing in place as prescribed N/A No N/A Experienced any changes in pain level or Yes No No management Left Footwear Regular Shoe Right Footwear Regular Shoe Pain Scale: 0-10 Numeric Is Patient Pain Free? Yes Yes Yes 11/04/21 10:02 WC - Today's Visit Information Type of service Follow-up Visit (Physician/[facility] ) Arrival Mode Ambulatory Transfer Assistance None Patient Identification Verified (Name & Yes ) Patient Requires Transmission-Based No Precautions Safety Precautions Height and Weight Body Mass Index (BMI) 28.4 BMI Classification Overweight Vital Signs Temperature (97.8 F-99.1 F) 97.6 F L Temperature Source Temporal Pulse Rate (60-100) 69 Pulse Location Monitor Respiratory Rate (12-18) 18 Respiratory rate source Observation Oxygen Delivery Method Blood Pressure (90/60-120/80) 153/95 H Blood Pressure Mean (mm Hg) 114 Source Monitor Position Blood Pressure Location History Since Last Visit- (Skip if this is Patient's initial visit) Have you changed medications since your No last visit? Any new allergies or adverse reactions No Had a fall/change in ADL's that may No increase risk of falls Signs or symptoms of abuse and/or No neglect since last visit Have you been in the hospital since your No last visit? Has dressing in place as prescribed Yes Has compression in place as prescribed Yes Has offloadiing in place as prescribed N/A Experienced any changes in pain level or No management Left Footwear Right Footwear Pain Scale: 0-10 Numeric Is Patient Pain Free? Yes WC - Nurse 1 - General Ulcer Measurement Start: 10/11/21 09:06 Freq: Status: Active Protocol: Activity Type Activity Date Activity User E-Sign Co-Sign Detail Recorded Client Recorded Date Recorded By Document 10/11/21 09:06 DL [id number] 10/11/21 09:24 DL Document 10/14/21 09:55 AK [id number] 10/14/21 10:02 AK Document 10/21/21 10:00 DL [id number] 10/21/21 10:07 DL Document 10/25/21 10:49 DL [id number] 10/25/21 11:11 DL Document 10/28/21 09:58 RB [id number] 10/28/21 10:08 RB Document 11/04/21 10:02 DL [id number] 11/04/21 10:08 DL 10/11/21 10/14/21 10/21/21 09:06 09:55 10:00 Wound Center Nurse 1 #7 left lower ABD -Combined with other wound No -Current Size (cm) - Length 0.3 0.8 -Current Size (cm) - Width 0.9 0.5 -Current Size (cm) - Depth 1.4 0.6 -Total Square Cm 0.27 0.40 -Photo Taken No No No -Tunneling No -Tunneling Position (O'clock) 9 9 -Tunneling Distance (cm) 2 1.4 -Undermining/Tunneling No -Circular Undermining No -Change in Wound Grade/Stage No -Exudate Amt Small Medium Small -Exudate Type Serosanguineous Serosanguineous -Wound Margin Distinct, Distinct, Distinct, Outline Outline Outline Attached Attached Attached -Granulation Amt None Present (0 Small (1-33%) %) -Granulation Quality N/A Red -Slough/Fibrin Yes -Necrosis Amt Small (1-33%) None Present (0 %) -Necrotic Tissue Type Adherent Slough -Structure Exposed N/A N/A -Texture (Anca-wound Skin Appearance) Scarring,Rash Assessed, Scarring Scarring -Moisture (Anca-wound Skin Appearance) No Abnormality, No Abnormality Assessed -Color (Anca-wound Skin Appearance) No Abnormality, No Abnormality Assessed -Temperature (Anca-wound Skin No Abnormality No Abnormality Appearance) (Pt Warm) (Pt Warm) -Tenderness on Palpation (Anca-wound Yes No No Skin Appearance) -Ulcer Cleansing Soap and Water Rinsed/ Irrigated with Saline -Foul Odor after Cleansing No No No -Anesthetic Used 4% Lidocaine 4% Lidocaine Solution Solution 10/25/21 10/28/21 11/04/21 10:49 09:58 10:02 Wound Center Nurse 1 #7 left lower ABD -Combined with other wound No -Current Size (cm) - Length 0.6 0.3 -Current Size (cm) - Width 1 0.3 -Current Size (cm) - Depth 2 0.4 -Total Square Cm 0.6 0.09 -Photo Taken No No -Tunneling Yes -Tunneling Position (O'clock) 9 9 9 -Tunneling Distance (cm) 1.9 2.4 0.5 -Undermining/Tunneling -Circular Undermining -Change in Wound Grade/Stage -Exudate Amt Medium Medium Small -Exudate Type Serosanguineous Serosanguineous -Wound Margin Distinct, Distinct, Distinct, Outline Outline Outline Attached Attached Attached -Granulation Amt Large (67-100%) Medium (34-66%) Small (1-33%) -Granulation Quality So-Hi So-Hi Red -Slough/Fibrin Yes -Necrosis Amt None Present (0 Small (1-33%) None Present (0 %) %) -Necrotic Tissue Type -Structure Exposed N/A N/A N/A -Texture (Anca-wound Skin Appearance) Scarring Assessed, Scarring,Rash Scarring -Moisture (Anca-wound Skin Appearance) No Abnormality Assessed Dry/Scaly -Color (Anca-wound Skin Appearance) No Abnormality Assessed No Abnormality -Temperature (Anca-wound Skin No Abnormality No Abnormality No Abnormality Appearance) (Pt Warm) (Pt Warm) (Pt Warm) -Tenderness on Palpation (Anca-wound No No No Skin Appearance) -Ulcer Cleansing Soap and Water Wound Cleanser Rinsed/ Irrigated with Saline -Foul Odor after Cleansing No No No -Anesthetic Used 4% Lidocaine 5% Lidocaine Solution Gel WC - Nurse 2 - General Ulcer CM Notes Start: 10/11/21 09:06 Freq: Status: Active Protocol: Activity Type Activity Date Activity User E-Sign Co-Sign Detail Recorded Client Recorded Date Recorded By Document 10/14/21 10:16 MW [id number] 10/14/21 10:18 MW Document 10/21/21 10:11 MW [id number] 10/21/21 10:16 MW Document 10/28/21 10:18 MW [id number] 10/28/21 10:23 MW Document 11/04/21 10:20 [id number] 11/04/21 10:22 10/14/21 10/21/21 10/28/21 10:16 10:11 10:18 Wound Center Nurse 2 #7 left lower ABD -Time 10:17 10:12 10:18 -Correct Patient Yes Yes Yes -Correct Side, Site, Position Yes Yes Yes -Correct Procedure Yes Yes Yes -Procedure Performed Yes Yes Yes -Type of Procedure Debridement Debridement Debridement -Clinical Debridement Subcutaneous Subcutaneous Subcutaneous -Tissue Removed Subcutaneous Subcutaneous Subcutaneous -Post Debridement (cm) - Length 0.3 0.4 0.3 -Post Debridement (cm) - Width 0.7 0.9 0.4 -Post Debridement (cm) - Depth 1.4 1.8 1.5 -Total Square (Post) (cm) 0.21 0.36 0.12 -Area of Debridement (cm) - Length 0.3 0.4 0.3 -Area of Debridement (cm) - Width 0.7 0.9 0.4 -Total Square (Area) (cm) 0.21 0.36 0.12 -Tunneling No Yes Yes -Tunneling Position (O'clock) 9 9 -Tunneling Distance (cm) 1.9 1.5 -Undermining/Tunneling No No No -Circular Undermining No No No -Wound/Ulcer Outcome Not Healed Not Healed Not Healed -Ulcer Cleansing Rinsed/ Rinsed/ Rinsed/ Irrigated with Irrigated with Irrigated with Saline Saline Saline -Foul Odor after Cleansing No No No -Bioengineered Tissue No No No -Bleeding Controlled with Pressure Pressure Pressure -Treatment Response Procedure Procedure Procedure Tolerated Well Tolerated Well Tolerated Well -Offloading No No No -Debridement - Subq, 1st 20sq cm Yes Yes Yes Pain Scale: 0-10 Numeric Is Patient Pain Free? Yes Yes Yes 11/04/21 10:20 Wound Center Nurse 2 #7 left lower ABD -Time 10:21 -Correct Patient Yes -Correct Side, Site, Position Yes -Correct Procedure Yes -Procedure Performed Yes -Type of Procedure Debridement -Clinical Debridement Subcutaneous -Tissue Removed Subcutaneous -Post Debridement (cm) - Length 0.3 -Post Debridement (cm) - Width 0.4 -Post Debridement (cm) - Depth 1.2 -Total Square (Post) (cm) 0.12 -Area of Debridement (cm) - Length 0.3 -Area of Debridement (cm) - Width 0.4 -Total Square (Area) (cm) 0.12 -Tunneling No -Tunneling Position (O'clock) -Tunneling Distance (cm) -Undermining/Tunneling No -Circular Undermining No -Wound/Ulcer Outcome Not Healed -Ulcer Cleansing Rinsed/ Irrigated with Saline -Foul Odor after Cleansing No -Bioengineered Tissue No -Bleeding Controlled with Pressure -Treatment Response Procedure Tolerated Well -Offloading No -Debridement - Subq, 1st 20sq cm Yes Pain Scale: 0-10 Numeric Is Patient Pain Free? Yes WC - Nurse 3 - General Ulcer D/C NN Start: 10/11/21 09:06 Freq: Status: Active Protocol: Activity Type Activity Date Activity User E-Sign Co-Sign Detail Recorded Client Recorded Date Recorded By Document 10/11/21 09:06 DL [id number] 10/11/21 09:24 DL Document 10/14/21 10:18 MW [id number] 10/14/21 10:20 MW Document 10/21/21 10:45 RB [id number] 10/21/21 10:46 RB Document 10/25/21 10:49 DL [id number] 10/25/21 11:11 DL Document 10/28/21 11:00 RB [id number] 10/28/21 11:00 RB Document 11/01/21 15:09 BMF [id number] 11/01/21 15:10 BMF 10/11/21 10/14/21 10/21/21 09:06 10:18 10:45 Vital Signs Temperature (97.8 F-99.1 F) 97.5 F L Temperature Source Temporal Pulse Rate (60-100) 57 L Pulse Location Monitor Respiratory Rate (12-18) 18 Respiratory rate source Observation Oxygen Delivery Method Blood Pressure (90/60-120/80) 130/90 H Blood Pressure Mean (mm Hg) 103 Source Monitor Position Blood Pressure Location Pain Scale: 0-10 Numeric Is Patient Pain Free? Yes Yes Yes Teaching: Wound Center Dressing Your Wound -Person Taught Patient -Teaching Method Discussion, Demonstration -Response to teaching Verbalize understanding Wound Care Nurse 3 #7 left lower ABD -Ulcer Cleansing Soap and Water Rinsed/ Rinsed/ Irrigated with Irrigated with Saline Saline -Foul Odor after Cleansing No No -Negative Pressure Wound Therapy Continue N/A Continue -Setting (mmHg) 150 150 -Negative Pressure is Continuous Continuous -Primary Dressing Applied Aquacel Extra, Mepilex Border -Other Covering -NPWT Application Charge NPWT </= 50 sq NPWT & cm ($) Debridement (nc ) -Aquacel Extra 1 -Mepilex Border 1 Anca-Wound Care Barrier Treatment Response Procedure Procedure Tolerated Well Tolerated Well WC - Visit Discharge Discharge Condition Stable Stable Stable Ambulatory Status Ambulatory Ambulatory Ambulatory Transportation Private [place] [employer] Private Auto Private Auto Accompanied by self Medication Reconcilliation completed & No No provided to patient/care provider Clinical Summary of Care Provided Yes Yes 10/25/21 10/28/21 11/01/21 10:49 11:00 15:09 Vital Signs Temperature (97.8 F-99.1 F) 97.6 F L 97 F L Temperature Source Temporal Temporal Pulse Rate (60-100) 65 71 Pulse Location Monitor Monitor Respiratory Rate (12-18) 18 16 Respiratory rate source Observation Observation Oxygen Delivery Method Room Air Blood Pressure (90/60-120/80) 153/96 H 147/95 H Blood Pressure Mean (mm Hg) 115 112 Source Monitor Monitor Position Sitting Blood Pressure Location Left Arm Pain Scale: 0-10 Numeric Is Patient Pain Free? Yes Yes Yes Teaching: Wound Center Dressing Your Wound -Person Taught -Teaching Method -Response to teaching Wound Care Nurse 3 #7 left lower ABD -Ulcer Cleansing Soap and Water Wound Cleanser Soap and Water -Foul Odor after Cleansing No No -Negative Pressure Wound Therapy Continue Continue Continue -Setting (mmHg) 150 150 150 -Negative Pressure is Continuous Continuous Continuous -Primary Dressing Applied -Other Covering Dry gauze to red area -NPWT Application Charge NPWT </= 50 sq NPWT & NPWT </= 50 sq cm ($) Debridement (nc cm ($) ) -Aquacel Extra -Mepilex Border Anca-Wound Care Barrier Treatment Response Procedure Procedure Procedure Tolerated Well Tolerated Well Tolerated Well WC - Visit Discharge Discharge Condition Stable Stable Stable Ambulatory Status Ambulatory Ambulatory Ambulatory Transportation [place] Private Auto Private Auto Accompanied by Medication Reconcilliation completed & No provided to patient/care provider Clinical Summary of Care Provided Yes Assessment/Plan Assessment/Plan (1) Surgical wound breakdown: CODE(S): T81.31XA - Disruption of external operation (surgical) wound, not elsewhere classified, initial encounter QUALIFIERS: Encounter type: initial encounter Qualified Code(s): T81.31XA - Disruption of external operation (surgical) wound, not elsewhere classified, initial encounter (2) Non-healing surgical wound: CODE(S): T81.89XA - Other complications of procedures, not elsewhere classified, initial encounter QUALIFIERS: Encounter type: initial encounter Qualified Code(s): T81.89XA - Other complications of procedures, not elsewhere classified, initial encounter PLAN: Debridement done as documented above, procedure was well-tolerated. Improving. As above, she reports no significant drainage over the past week. VAC holiday. Promogran daily, cover with Adaptic and gauze. Increased protein intake, vitamin C and zinc recommended. She voiced understanding. Her questions were answered and she was advised to call with any further questions or concerns. Follow-up in 1 week. This note was generated with [employer] dictation software. It may contain incorrect words, spelling, and punctuation that were not noted in checking the note before signing.
== END 2021-11-09 23:59 | disposition home or self-care (01) ==
LOC: WC 10:00
PROVIDERS: Visit Provider Internal Medicine
DX: T81.89XA Other complications of procedures, not elsewhere classified, initial encounter (principal); T81.31XA Disruption of external operation (surgical) wound, not elsewhere classified, initial encounter; Y83.8 Other surgical procedures as the cause of abnormal reaction of the patient, or of later complication, without mention of misadventure at the time of the procedure; K95.89 Other complications of other bariatric procedure
CPT/HCPCS: 11042; 97605; 99203; G0463

== ENCOUNTER 2021-11-25 10:00 | Outpatient (RCR) | payer MEDICAID, SELFPAY ==
[2021-11-10 00:52] VITALS: BP 153/95; PULSE 69; RESP 18; TEMP 36.4; BMI 28.4
[2021-11-11 09:38] VITALS: BP 134/87; PULSE 68; RESP 18; TEMP 36.3; BMI 28.4
--- NOTE | 2021-11-11 12:39 | PCM.WC.PN ---
History of Present Illness Date of Service: 11/11/21 Chief Complaint: Surgical wound break down History of Wound: Ms. Quintero is a 35-year-old who presents to the wound center due to surgical wound breakdown. Had extensive surgery done in June to remove excess skin following weight loss from bariatric surgery. Surgery was done in [place]. Surgery was uneventful and for the most part has done really well post surgery. Had some areas of wound breakdown. Has been applying Medihoney and Aquacel without any significant improvement. Minimal clear with blood tingled drainage. She was referred here by her primary care physician. She denies any history of diabetes mellitus, tobacco or alcohol abuse. Feels well otherwise. Progress of Wound: No new concerns at this time. Improving. Has been using Promogran daily, she states that she has had little to no drainage. Objective Data Objective Data Vital Signs: Vital Signs Temp Pulse Resp BP 97.4 F L 68 18 134/87 H 11/11/21 09:38 11/11/21 09:38 11/11/21 09:38 11/11/21 09:38 Weight: 160 lb 11.834 oz Body Mass Index (BMI) 28.4 Charges/Coding Procedures Integumentary 111xxx-113xx: 80553 Hollie subq tissue 20 sq cm/< Physical Exam Const alert, oriented x3 and no apparent distress General Appearance: cooperative, comfortable, well kempt and well developed HEENT normocephalic and head/scalp atraumatic Head and Scalp: normal to inspection and normocephalic Eyes EOMs intact bilaterally General Eye: normal appearance of both eyes Neck full ROM General: normal visual inspection Resp normal respiratory effort Effort and Inspection: able to speak in complete sentences Skin Wounds: wounds noted Neuro oriented x3, CN's II-XII intact bilaterally, moves all extremities and no focal motor deficits Psych mental status grossly normal Appearance: grossly normal Attitude: calm Activity / Motor Behavior: appropriate eye contact Speech: normal speech Thought Process: normal thought process Debridement Note Debridement Note Wound debrided: Lower abdomen Type of Debridement: Excisional debridement Anesthesia Used: 4% Lidocaine Solution Depth: Down to and including healthy tissue Percentage of wound debrided: 100 Instrument Used: Forceps and - (1mm) Tissue Removed: Slough and devitalized tissue Severity: Fat Layer Exposed Amount of bleeding with debridement: Mild Bleeding Controlled with: Pressure Patient tolerated procedure: Patient tolerated procedure well Post-Debridement Measurements and Additional Note: Post-Debridement Measurements/Treatment - Nurse 1 - General Ulcer Assessment Start: 11/11/21 09:37 Freq: Status: Active Protocol: KANG Activity Type Activity Date Activity User E-Sign Co-Sign Detail Recorded Client Recorded Date Recorded By Document 11/11/21 09:38 DL [id number] 11/11/21 09:44 DL 11/11/21 09:38 WC - Today's Visit Information Type of service 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 Any new allergies or adverse reactions No Had a fall/change in ADL's that may No increase risk of falls Signs or symptoms of abuse and/or No neglect since last visit Have you been in the hospital since your No last visit? Has dressing in place as prescribed Yes Has compression in place as prescribed Yes Has offloadiing in place as prescribed N/A Experienced any changes in pain level or No management Pain Scale: 0-10 Numeric Is Patient Pain Free? Yes - Nurse 1 - General Ulcer Measurement Start: 11/11/21 09:37 Freq: Status: Active Protocol: Activity Type Activity Date Activity User E-Sign Co-Sign Detail Recorded Client Recorded Date Recorded By Document 11/11/21 09:38 DL [id number] 11/11/21 09:44 DL 11/11/21 09:38 Wound Center Nurse 1 #7 left lower ABD -Current Size (cm) - Length 0.2 -Current Size (cm) - Width 0.2 -Current Size (cm) - Depth 0.2 -Total Square Cm 0.04 -Photo Taken Yes -Exudate Amt None Present -Wound Margin Indistinct, Non -Visible -Granulation Amt Small (1-33%) -Granulation Quality [place] -Necrosis Amt None Present (0 %) -Structure Exposed N/A -Texture (Anca-wound Skin Appearance) Scarring -Moisture (Anca-wound Skin Appearance) No Abnormality -Color (Anca-wound Skin Appearance) No Abnormality -Temperature (Anca-wound Skin No Abnormality Appearance) (Pt Warm) -Tenderness on Palpation (Anca-wound No Skin Appearance) -Ulcer Cleansing Soap and Water -Foul Odor after Cleansing No -Anesthetic Used 5% Lidocaine Gel WC - Nurse 2 - General Ulcer CM Notes Start: 11/11/21 09:37 Freq: Status: Active Protocol: Activity Type Activity Date Activity User E-Sign Co-Sign Detail Recorded Client Recorded Date Recorded By Document 11/11/21 10:05 [id number] 11/11/21 10:10 MW 11/11/21 10:05 Wound Center Nurse 2 -Time 10:05 -Correct Patient Yes -Correct Side, Site, Position Yes -Correct Procedure Yes -Procedure Performed Yes -Type of Procedure Debridement -Clinical Debridement Subcutaneous -Tissue Removed Subcutaneous -Post Debridement (cm) - Length 0.1 -Post Debridement (cm) - Width 0.3 -Post Debridement (cm) - Depth 0.3 -Total Square (Post) (cm) 0.03 -Area of Debridement (cm) - Length 0.1 -Area of Debridement (cm) - Width 0.3 -Total Square (Area) (cm) 0.03 -Tunneling No -Undermining/Tunneling No -Circular Undermining No -Wound/Ulcer Outcome Not Healed -Ulcer Cleansing Rinsed/ Irrigated with Saline -Foul Odor after Cleansing No -Bioengineered Tissue No -Bleeding Controlled with Pressure -Treatment Response Procedure Tolerated Well -Offloading No -Debridement - Subq, 1st 20sq cm Yes Pain Scale: 0-10 Numeric Is Patient Pain Free? Yes WC - Nurse 3 - General Ulcer D/C NN Start: 11/11/21 09:37 Freq: Status: Active Protocol: Activity Type Activity Date Activity User E-Sign Co-Sign Detail Recorded Client Recorded Date Recorded By Document 11/11/21 10:17 [facility] [id number] 11/11/21 10:17 [facility] 11/11/21 10:17 Wound Care Nurse 3 #7 left lower ABD -Ulcer Cleansing Rinsed/ Irrigated with Saline -Foul Odor after Cleansing No -Primary Dressing Applied Promogran -Primary Dressing Covered/Secured with Dry Gauze, Secured with Tape -Promogran 1 Treatment Response Procedure Tolerated Well Pain Scale: 0-10 Numeric Is Patient Pain Free? Yes WC - Visit Discharge Discharge Condition Stable Ambulatory Status Ambulatory Transportation Private Auto Assessment/Plan Assessment/Plan (1) Surgical wound breakdown: CODE(S): T81.31XA - Disruption of external operation (surgical) wound, not elsewhere classified, initial encounter QUALIFIERS: Encounter type: initial encounter Qualified Code(s): T81.31XA - Disruption of external operation (surgical) wound, not elsewhere classified, initial encounter (2) Non-healing surgical wound: CODE(S): T81.89XA - Other complications of procedures, not elsewhere classified, initial encounter QUALIFIERS: Encounter type: initial encounter Qualified Code(s): T81.89XA - Other complications of procedures, not elsewhere classified, initial encounter PLAN: Debridement done as documented above, procedure was well-tolerated. Improving. Doing well without the wound VAC, discontinue. Continue Promogran daily, cover with Adaptic and gauze. Increased protein intake, vitamin C and zinc recommended. She voiced understanding. Her questions were answered and she was advised to call with any further questions or concerns. Follow-up in 1 week. This note was generated with [employer] dictation software. It may contain incorrect words, spelling, and punctuation that were not noted in checking the note before signing.
[2021-11-18 10:27] VITALS: BP 134/83; PULSE 57; RESP 16; TEMP 36; BMI 28.4
--- NOTE | 2021-11-18 13:13 | PN.PCM_ITS ---
History of Present Illness Date of Service: 11/18/21 Chief Complaint: Surgical wound break down History of Wound: Ms. Quintero is a 35-year-old who presents to the wound center due to surgical wound breakdown. Had extensive surgery done in June to remove excess skin following weight loss from bariatric surgery. Surgery was done in [place]. Surgery was uneventful and for the most part has done really well post surgery. Had some areas of wound breakdown. Has been applying Medihoney and Aquacel without any significant improvement. Minimal clear with blood tingled drainage. She was referred here by her primary care physician. She denies any history of diabetes mellitus, tobacco or alcohol abuse. Feels well otherwise. Progress of Wound: Improving. Minimal area left. No new concerns at this time. Objective Data Objective Data Vital Signs: Vital Signs Temp Pulse Resp BP 96.8 F L 57 L 16 134/83 H 11/18/21 10:27 11/18/21 10:27 11/18/21 10:27 11/18/21 10:27 Oxygen Delivery Method Room Air Weight: 160 lb 11.834 oz Body Mass Index (BMI) 28.4 Charges/Coding Procedures Integumentary 111xxx-113xx: 56054 Hollie subq tissue 20 sq cm/< Physical Exam Const alert, oriented x3 and no apparent distress General Appearance: cooperative, comfortable, well kempt and well developed HEENT normocephalic and head/scalp atraumatic Head and Scalp: normal to inspection and normocephalic Eyes EOMs intact bilaterally General Eye: normal appearance of both eyes Neck full ROM General: normal visual inspection Resp normal respiratory effort Effort and Inspection: able to speak in complete sentences Skin Wounds: wounds noted Neuro oriented x3, CN's II-XII intact bilaterally, moves all extremities and no focal motor deficits Psych mental status grossly normal Appearance: grossly normal Attitude: calm Activity / Motor Behavior: appropriate eye contact Speech: normal speech Thought Process: normal thought process Debridement Note Debridement Note Wound debrided: Lower abdomen Type of Debridement: Excisional debridement Anesthesia Used: 4% Lidocaine Solution Depth: Down to and including healthy tissue and in the subcutaneous layer Percentage of wound debrided: 100 Instrument Used: - (1mm) Tissue Removed: Slough and devitalized tissue Severity: Fat Layer Exposed Amount of bleeding with debridement: Mild Bleeding Controlled with: Pressure Patient tolerated procedure: Patient tolerated procedure well Post-Debridement Measurements and Additional Note: Post-Debridement Measurements/Treatment KINGSLEY - Nurse 1 - General Ulcer Assessment Start: 11/11/21 09:37 Freq: Status: Active Protocol: KANG Activity Type Activity Date Activity User E-Sign Co-Sign Detail Recorded Client Recorded Date Recorded By Document 11/11/21 09:38 DL [id number] 11/11/21 09:44 DL Document 11/18/21 10:27 BMF [id number] 11/18/21 10:33 BMF 11/11/21 11/18/21 09:38 10:27 WC - Today's Visit Information Type of service Follow-up Visit 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 ) ) Arrival Mode Ambulatory Ambulatory Transfer Assistance None None Patient Identification Verified (Name & Yes Yes ) Patient Requires Transmission-Based No Precautions Height and Weight Body Mass Index (BMI) 28.4 28.4 BMI Classification Overweight Overweight Vital Signs Temperature (97.8 F-99.1 F) 97.4 F L 96.8 F L Temperature Source Temporal Temporal Pulse Rate (60-100) 68 57 L Pulse Location Monitor Monitor Respiratory Rate (12-18) 18 16 Respiratory rate source Observation Observation Oxygen Delivery Method Room Air Blood Pressure (90/60-120/80) 134/87 H 134/83 H Blood Pressure Mean (mm Hg) 102 100 Source Monitor Monitor Position Sitting Blood Pressure Location Left Arm History Since Last Visit- (Skip if this is Patient's initial visit) Have you changed medications since your No No last visit? Any new allergies or adverse reactions No No Had a fall/change in ADL's that may No No increase risk of falls Signs or symptoms of abuse and/or No No neglect since last visit Have you been in the hospital since your No No last visit? Has dressing in place as prescribed Yes Yes Has compression in place as prescribed Yes N/A Has offloadiing in place as prescribed N/A N/A Experienced any changes in pain level or No No management Left Footwear Regular Shoe Right Footwear Regular Shoe Pain Scale: 0-10 Numeric Is Patient Pain Free? Yes Yes KINGSLEY - Nurse 1 - General Ulcer Measurement Start: 11/11/21 09:37 Freq: Status: Active Protocol: Activity Type Activity Date Activity User E-Sign Co-Sign Detail Recorded Client Recorded Date Recorded By Document 11/11/21 09:38 DL [id number] 11/11/21 09:44 DL Document 11/18/21 10:27 BMF [id number] 11/18/21 10:33 BMF 11/11/21 11/18/21 09:38 10:27 Wound Center Nurse 1 #7 left lower ABD -Combined with other wound No -Current Size (cm) - Length 0.2 0.1 -Current Size (cm) - Width 0.2 0.1 -Current Size (cm) - Depth 0.2 0.1 -Total Square Cm 0.04 0.01 -Date of Last Picture (Recall this 11/18/21 field) -Photo Taken Yes Yes -Epithelialization Large 67-100% -Tunneling No -Undermining/Tunneling No -Circular Undermining No -Exudate Amt None Present None Present -Wound Margin Indistinct, Non -Visible -Granulation Amt Small (1-33%) -Granulation Quality [place] -Necrosis Amt None Present (0 Small (1-33%) %) -Necrotic Tissue Type Eschar -Structure Exposed N/A -Texture (Anca-wound Skin Appearance) Scarring Assessed, Scarring -Moisture (Anca-wound Skin Appearance) No Abnormality Assessed,Dry/ Scaly -Color (Anca-wound Skin Appearance) No Abnormality Assessed -Temperature (Anca-wound Skin No Abnormality No Abnormality Appearance) (Pt Warm) (Pt Warm) -Tenderness on Palpation (Anca-wound No No Skin Appearance) -Ulcer Cleansing Soap and Water Rinsed/ Irrigated with Saline -Foul Odor after Cleansing No No -Anesthetic Used 5% Lidocaine 5% Lidocaine Gel Gel WC - Nurse 2 - General Ulcer CM Notes Start: 11/11/21 09:37 Freq: Status: Active Protocol: Activity Type Activity Date Activity User E-Sign Co-Sign Detail Recorded Client Recorded Date Recorded By Document 11/11/21 10:05 MW [id number] 11/11/21 10:10 MW Document 11/18/21 10:38 MW [id number] 11/18/21 10:41 MW 11/11/21 11/18/21 10:05 10:38 Wound Center Nurse 2 #7 left lower ABD -Time 10:05 10:38 -Correct Patient Yes Yes -Correct Side, Site, Position Yes Yes -Correct Procedure Yes Yes -Procedure Performed Yes Yes -Type of Procedure Debridement Debridement -Clinical Debridement Subcutaneous Subcutaneous -Tissue Removed Subcutaneous Subcutaneous -Post Debridement (cm) - Length 0.1 0.1 -Post Debridement (cm) - Width 0.3 0.1 -Post Debridement (cm) - Depth 0.3 0.2 -Total Square (Post) (cm) 0.03 0.01 -Area of Debridement (cm) - Length 0.1 0.1 -Area of Debridement (cm) - Width 0.3 0.1 -Total Square (Area) (cm) 0.03 0.01 -Tunneling No No -Undermining/Tunneling No No -Circular Undermining No No -Wound/Ulcer Outcome Not Healed Not Healed -Ulcer Cleansing Rinsed/ Rinsed/ Irrigated with Irrigated with Saline Saline -Foul Odor after Cleansing No No -Bioengineered Tissue No No -Bleeding Controlled with Pressure Pressure -Treatment Response Procedure Procedure Tolerated Well Tolerated Well -Offloading No No -Debridement - Subq, 1st 20sq cm Yes Yes Pain Scale: 0-10 Numeric Is Patient Pain Free? Yes Yes - Nurse 3 - General Ulcer D/C NN Start: 11/11/21 09:37 Freq: Status: Active Protocol: Activity Type Activity Date Activity User E-Sign Co-Sign Detail Recorded Client Recorded Date Recorded By Document 11/11/21 10:17 [facility] [id number] 11/11/21 10:17 [facility] Document 11/18/21 10:52 [id number] 11/18/21 10:55 DL 11/11/21 11/18/21 10:17 10:52 Wound Care Nurse 3 #7 left lower ABD -Ulcer Cleansing Rinsed/ Rinsed/ Irrigated with Irrigated with Saline Saline -Foul Odor after Cleansing No No -Primary Dressing Applied Promogran NonAdherent Contact Layer, Promogran -Primary Dressing Covered/Secured with Dry Gauze, Dry Gauze, Secured with Secured with Tape Tape -Promogran 1 1 Treatment Response Procedure Procedure Tolerated Well Tolerated Well Pain Scale: 0-10 Numeric Is Patient Pain Free? Yes Yes - Visit Discharge Discharge Condition Stable Stable Ambulatory Status Ambulatory Ambulatory Transportation Private Auto Private Auto Assessment/Plan Assessment/Plan (1) Surgical wound breakdown: CODE(S): T81.31XA - Disruption of external operation (surgical) wound, not elsewhere classified, initial encounter QUALIFIERS: Encounter type: initial encounter Qualified Code(s): T81.31XA - Disruption of external operation (surgical) wound, not elsewhere classified, initial encounter (2) Non-healing surgical wound: CODE(S): T81.89XA - Other complications of procedures, not elsewhere classified, initial encounter QUALIFIERS: Encounter type: initial encounter Qualified Code(s): T81.89XA - Other complications of procedures, not elsewhere classified, initial encounter PLAN: Debridement done as documented above, procedure was well-tolerated. Improving. Continue Promogran daily, cover with Adaptic and gauze. Increased protein intake, vitamin C and zinc recommended. She voiced understanding. Her questions were answered and she was advised to call with any further questions or concerns. Follow-up in 1 week. This note was generated with [employer] dictation software. It may contain incorrect words, spelling, and punctuation that were not noted in checking the note before signing.
[2021-11-25 10:13] VITALS: BP 148/97; PULSE 72; TEMP 35.7; BMI 28.4
--- NOTE | 2021-11-25 11:15 | PCM.WC.PN ---
History of Present Illness Date of Service: 11/25/21 Chief Complaint: Surgical wound break down History of Wound: Ms. Quintero is a 35-year-old who presents to the wound center due to surgical wound breakdown. Had extensive surgery done in June to remove excess skin following weight loss from bariatric surgery. Surgery was done in [place]. Surgery was uneventful and for the most part has done really well post surgery. Had some areas of wound breakdown. Has been applying Medihoney and Aquacel without any significant improvement. Minimal clear with blood tingled drainage. She was referred here by her primary care physician. She denies any history of diabetes mellitus, tobacco or alcohol abuse. Feels well otherwise. Progress of Wound: Healed. No new concerns at this time. Objective Data Objective Data Vital Signs: Vital Signs Temp Pulse Resp BP 96.3 F L 72 16 148/97 H 11/25/21 10:13 11/25/21 10:13 11/18/21 10:27 11/25/21 10:13 Oxygen Delivery Method Room Air Weight: 160 lb 11.834 oz Body Mass Index (BMI) 28.4 Charges/Coding Visit Charges Office Visits / Consults: 26447 OV L3 Est Physical Exam Const alert, oriented x3 and no apparent distress General Appearance: cooperative, comfortable, well kempt and well developed HEENT normocephalic and head/scalp atraumatic Head and Scalp: normal to inspection and normocephalic Eyes EOMs intact bilaterally General Eye: normal appearance of both eyes Neck full ROM General: normal visual inspection Resp normal respiratory effort Effort and Inspection: able to speak in complete sentences Neuro oriented x3, CN's II-XII intact bilaterally, moves all extremities and no focal motor deficits Psych mental status grossly normal Appearance: grossly normal Attitude: calm Activity / Motor Behavior: appropriate eye contact Speech: normal speech Thought Process: normal thought process Debridement Note Debridement Note Post-Debridement Measurements and Additional Note: Post-Debridement Measurements/Treatment [place]LEY - Nurse 1 - General Ulcer Assessment Start: 11/11/21 09:37 Freq: Status: Active Protocol: KANG Activity Type Activity Date Activity User E-sign Co-sign Detail Recorded Client Recorded Date Recorded By Document 11/11/21 09:38 DL [id number] 11/11/21 09:44 DL Document 11/18/21 10:27 BMF [id number] 11/18/21 10:33 BM Document 11/25/21 10:13 AK [id number] 11/25/21 10:25 AK 11/11/21 11/18/21 11/25/21 09:38 10:27 10:13 WC - Today's Visit Information Type of service Follow-up Visit Follow-up Visit Follow-up Visit (Physician/SECURITY PROGRAM MANAGER (Physician/SECURITY PROGRAM MANAGER (Physician/SECURITY PROGRAM MANAGER ) ) ) Arrival Mode Ambulatory Ambulatory Ambulatory Transfer Assistance None None Patient Identification Verified (Name & Yes Yes No ) Patient Requires Transmission-Based No No Precautions Safety Precautions NA Height and Weight Body Mass Index (BMI) 28.4 28.4 28.4 BMI Classification Overweight Overweight Overweight Vital Signs Temperature (97.8 F-99.1 F) 97.4 F L 96.8 F L 96.3 F L Temperature Source Temporal Temporal Temporal Pulse Rate (60-100) 68 57 L 72 Pulse Location Monitor Monitor Monitor Respiratory Rate (12-18) 18 16 Respiratory rate source Observation Observation Oxygen Delivery Method Room Air Blood Pressure (90/60-120/80) 134/87 H 134/83 H 148/97 H Blood Pressure Mean (mm Hg) 102 100 114 Source Monitor Monitor Position Sitting Blood Pressure Location Left Arm History Since Last Visit- (Skip if this is Patient's initial visit) Have you changed medications since your No No No last visit? Any new allergies or adverse reactions No No No Had a fall/change in ADL's that may No No No increase risk of falls Signs or symptoms of abuse and/or No No No neglect since last visit Have you been in the hospital since your No No No last visit? Has dressing in place as prescribed Yes Yes Yes Has compression in place as prescribed Yes N/A N/A Has offloadiing in place as prescribed N/A N/A N/A Experienced any changes in pain level or No No No management Left Footwear Regular Shoe Regular Shoe Right Footwear Regular Shoe Regular Shoe Pain Scale: 0-10 Numeric Is Patient Pain Free? Yes Yes Yes WC - Nurse 1 - General Ulcer Measurement Start: 11/11/21 09:37 Freq: Status: Active Protocol: Activity Type Activity Date Activity User E-sign Co-sign Detail Recorded Client Recorded Date Recorded By Document 11/11/21 09:38 DL [id number] 11/11/21 09:44 DL Document 11/18/21 10:27 BMF [id number] 11/18/21 10:33 BMF Document 11/25/21 10:13 AK [id number] 11/25/21 10:25 AK 11/11/21 11/18/21 11/25/21 09:38 10:27 10:13 Wound Center Nurse 1 #7 left lower ABD -Combined with other wound No No -Current Size (cm) - Length 0.2 0.1 -Current Size (cm) - Width 0.2 0.1 -Current Size (cm) - Depth 0.2 0.1 -Total Square Cm 0.04 0.01 -Date of Last Picture (Recall this 11/18/21 field) -Photo Taken Yes Yes -Epithelialization Large 67-100% -Tunneling No -Undermining/Tunneling No No -Circular Undermining No No -Change in Wound Grade/Stage No -Exudate Amt None Present None Present None Present -Wound Margin Indistinct, Non -Visible -Granulation Amt Small (1-33%) None Present (0 %) -Granulation Quality [place] N/A -Slough/Fibrin No -Necrosis Amt None Present (0 Small (1-33%) None Present (0 %) %) -Necrotic Tissue Type Eschar -Structure Exposed N/A N/A -Texture (Anca-wound Skin Appearance) Scarring Assessed, No Abnormality, Scarring Assessed -Moisture (Anca-wound Skin Appearance) No Abnormality Assessed,Dry/ No Abnormality, Scaly Assessed -Color (Anca-wound Skin Appearance) No Abnormality Assessed No Abnormality, Assessed -Temperature (Anca-wound Skin No Abnormality No Abnormality No Abnormality Appearance) (Pt Warm) (Pt Warm) (Pt Warm) -Tenderness on Palpation (Anca-wound No No No Skin Appearance) -Ulcer Cleansing Soap and Water Rinsed/ Irrigated with Saline -Foul Odor after Cleansing No No No -Anesthetic Used 5% Lidocaine 5% Lidocaine Gel Gel WC - Nurse 2 - General Ulcer CM Notes Start: 11/11/21 09:37 Freq: Status: Active Protocol: Activity Type Activity Date Activity User E-sign Co-sign Detail Recorded Client Recorded Date Recorded By Document 11/11/21 10:05 MW [id number] 11/11/21 10:10 MW Document 11/18/21 10:38 MW [id number] 11/18/21 10:41 MW Document 11/25/21 10:25 MW [id number] 11/25/21 10:28 MW 11/11/21 11/18/21 11/25/21 10:05 10:38 10:25 Wound Center Nurse 2 #7 left lower ABD -Time 10:05 10:38 10:26 -Correct Patient Yes Yes Yes -Correct Side, Site, Position Yes Yes Yes -Correct Procedure Yes Yes Yes -Procedure Performed Yes Yes No -Type of Procedure Debridement Debridement -Clinical Debridement Subcutaneous Subcutaneous -Tissue Removed Subcutaneous Subcutaneous -Post Debridement (cm) - Length 0.1 0.1 0 -Post Debridement (cm) - Width 0.3 0.1 0 -Post Debridement (cm) - Depth 0.3 0.2 0 -Total Square (Post) (cm) 0.03 0.01 0 -Area of Debridement (cm) - Length 0.1 0.1 -Area of Debridement (cm) - Width 0.3 0.1 -Total Square (Area) (cm) 0.03 0.01 -Tunneling No No -Undermining/Tunneling No No -Circular Undermining No No -Wound/Ulcer Outcome Not Healed Not Healed Healed- Epithelialized -Ulcer Cleansing Rinsed/ Rinsed/ Irrigated with Irrigated with Saline Saline -Foul Odor after Cleansing No No -Bioengineered Tissue No No -Bleeding Controlled with Pressure Pressure -Treatment Response Procedure Procedure Tolerated Well Tolerated Well -Offloading No No -Debridement - Subq, 1st 20sq cm Yes Yes Pain Scale: 0-10 Numeric Is Patient Pain Free? Yes Yes Yes WC - Nurse 3 - General Ulcer D/C NN Start: 11/11/21 09:37 Freq: Status: Active Protocol: Activity Type Activity Date Activity User E-sign Co-sign Detail Recorded Client Recorded Date Recorded By Document 11/11/21 10:17 [facility] [id number] 11/11/21 10:17 BMF Document 11/18/21 10:52 DL [id number] 11/18/21 10:55 DL Document 11/25/21 10:28 MW [id number] 11/25/21 10:28 MW 11/11/21 11/18/21 11/25/21 10:17 10:52 10:28 Wound Care Nurse 3 #7 left lower ABD -Ulcer Cleansing Rinsed/ Rinsed/ Irrigated with Irrigated with Saline Saline -Foul Odor after Cleansing No No -Primary Dressing Applied Promogran NonAdherent Contact Layer, Promogran -Primary Dressing Covered/Secured with Dry Gauze, Dry Gauze, Secured with Secured with Tape Tape -Promogran 1 1 Treatment Response Procedure Procedure Tolerated Well Tolerated Well Pain Scale: 0-10 Numeric Is Patient Pain Free? Yes Yes Yes Teaching: Wound Center Discharge Instructions -Person Taught Patient -Teaching Method Discussion -Response to teaching Verbalize understanding WC - Visit Discharge Discharge Condition Stable Stable Stable Ambulatory Status Ambulatory Ambulatory Ambulatory Transportation Private Auto Private Auto Private Auto Accompanied by SELF Medication Reconcilliation completed & No provided to patient/care provider Clinical Summary of Care Provided Yes Notes: HEALED, DISCHARGED FROM CLINIC Assessment/Plan Assessment/Plan (1) Surgical wound breakdown: CODE(S): T81.31XA - Disruption of external operation (surgical) wound, not elsewhere classified, initial encounter QUALIFIERS: Encounter type: initial encounter Qualified Code(s): T81.31XA - Disruption of external operation (surgical) wound, not elsewhere classified, initial encounter (2) Non-healing surgical wound: CODE(S): T81.89XA - Other complications of procedures, not elsewhere classified, initial encounter QUALIFIERS: Encounter type: initial encounter Qualified Code(s): T81.89XA - Other complications of procedures, not elsewhere classified, initial encounter PLAN: Plan Healed. No new concerns at this time. Instructions given on surgical scar management. Keep area protected. No swimming for at least a month. She voiced understanding. Her questions were answered and she was advised to call with any further questions or concerns. Discharge from the wound center. This note was generated with [employer] dictation software. It may contain incorrect words, spelling, and punctuation that were not noted in checking the note before signing.
== END 2021-11-25 14:15 | disposition home or self-care (01) ==
LOC: WC 10:00
PROVIDERS: Visit Provider Internal Medicine
DX: T81.89XA Other complications of procedures, not elsewhere classified, initial encounter (principal); Y83.8 Other surgical procedures as the cause of abnormal reaction of the patient, or of later complication, without mention of misadventure at the time of the procedure; T81.31XA Disruption of external operation (surgical) wound, not elsewhere classified, initial encounter; K95.89 Other complications of other bariatric procedure
CPT/HCPCS: 11042; 99213; G0463

== ENCOUNTER 2024-03-24 11:31 | Emergency (ER) | payer MEDICAID, SELFPAY ==
[2024-03-24 11:32] VITALS: BP 147/102; PULSE 76; RESP 16; TEMP 36.6; O2SAT 99; BMI 26.9
--- NOTE | 2024-03-24 11:52 | EDS_ITS ---
HPI History of Present Illness Chief Complaint: General Illness Informant: patient Onset/Context/Timing Onset: Days (2) Context: Gradual Onset Timing: Continuous Quality: Burning Location: Genitals Worsened by: Nothing Relieved by: Nothing Narrative Narrative: Patient presents with a flareup of her lichen sclerosus over the past 2 days. Patient states she was diagnosed with this in 2018 after a biopsy. Patient states she has been using clobetasol cream with minimal relief. Patient describes her pain as burning. Patient states it is worse with certain sitting positions. Patient denies any fevers or chills. Patient denies any nausea or vomiting. Patient states she has other areas of lichen sclerosis but it is worse in her genital area. Prior similar symptoms: Yes PFSH PFSH Medical History Non-healing surgical wound Surgical wound breakdown Gallstones Hemorrhoid GERD (gastroesophageal reflux disease) Anxiety and depression Abnormal Pap smear of cervix Depression Home Medications ?Medication ?Instructions ?Recorded ?Last Taken ?Type fluoxetine 20 mg capsule 80 mg PO DAILY depression 05/23/18 08/13/20 21:00 History iron, carbonyl 45 mg tablet 65 mg PO BID 04/08/19 08/13/20 21:00 History vits,calcium no.78-iron 1 tab PO DAILY 04/08/19 08/13/20 21:00 History fumarate-folic acid 29 mg-1 mg tablet bupropion HCl 150 mg tablet,12 hr 150 mg PO DAILY 08/15/20 Unknown History sustained-release fluconazole 150 mg tablet 150 mg PO DAILY 7 days #7 tabs 09/20/21 Unknown Rx (Diflucan) amoxicillin 875 mg-potassium 1 tab PO Q12H 14 days #28 tabs 09/27/21 Unknown Rx clavulanate 125 mg tablet sulfamethoxazole 800 1 tab PO BID #6 TABLETS 03/24/24 Unknown Rx mg-trimethoprim 160 mg tablet tramadol 50 mg tablet 50 mg PO Q6H 3 days #12 tabs 03/24/24 Unknown Rx Allergy/AdvReac Type Severity Reaction Status Date / Time No Known Allergies Allergy Verified 09/06/20 11:11 Family History Mother Hypertension Surgical History History of laparoscopic cholecystectomy (~04/2019) history of foot fusion History of foot surgery History of colposcopy H/O bariatric surgery Social History Smoking Status: Never smoker ROS ROS ED Constitutional Constitutional ED: Denies chills or fever(s) Eyes Eyes: Denies blurry vision or change in vision ENT ENT ED: Denies rhinorrhea or sore throat Cardiovascular Cardiovascular: Denies chest pain or palpitations Respiratory/Chest Respiratory/Chest: Denies cough or dyspnea Gastrointestinal Gastrointestinal: Denies nausea or vomiting Genitourinary Genitourinary ED: Reports dysuria; Denies hematuria Musculoskeletal Musculoskeletal: Denies back pain or neck pain Integumentary Reports rash; Denies abscess Neurologic Neurologic: Denies headache(s) or weakness Allergic/Immunologic Allergic/Immunologic ED: Denies mouth swelling or urticaria EXAM Physical Exam Const Vital Signs: 03/24/24 11:32 03/24/24 11:44 03/24/24 13:32 Temperature 97.9 F Temperature Source Oral Pulse Rate 76 84 Respiratory Rate 16 16 Respiratory Effort Normal Respiratory Pattern Normal Blood Pressure 147/102 H 132/78 H Blood Pressure Mean 117 96 Pulse Ox 99 97 Oxygen Delivery Method Room Air Positive well nourished and well developed General Appearance ED: well developed and NAD HEENT Reports moist mucous membranes Neck supple and no JVD Resp normal respiratory effort and clear to auscultation bilaterally Cardio regular rate and regular rhythm GI non-tender and non-distended Palpation: soft Narrative: Pelvic exam was performed with female nurse angle shear set up operator. There is tenderness over the labia majora and labia minora. There are hypopigmented lesions noted. There is minimal vaginal discharge. There are no ulcerations noted. There are no abscesses noted. Neuro oriented x3, CN's II-XII intact bilaterally and no sensory deficits noted Sensorium / Orientation: alert Motor Exam: strength 5/5 throughout MDM MDM MDM Narrative Medical decision making narrative: Differential diagnosis includes urinary tract infection, lichen sclerosus, pelvic inflammatory disease, sexually transmitted infection. Urinalysis will be obtained to assess for urinary tract infection. GC and Chlamydia PCR will be obtained to assess for sexually transmitted infection and pelvic inflammatory disease. Lab Data Attestation: I reviewed the patient's lab results. Lab results narrative: Urinalysis was reviewed. Leukocyte esterase was 500 with 50-100 white blood cells. There is 0-5 epithelial cells. GC chlamydia PCR was reviewed and was negative. Labs: Laboratory Results - last 24 hr 03/24/24 12:23 Urine Color Yellow Urine Clarity Sl. Cloudy Urine pH 6.0 Ur Specific Guy 1.020 Urine Protein 30 H Urine Glucose (UA) Normal Urine Ketones 5 H Urine Occult Blood 25 H Urine Nitrite Negative Urine Bilirubin Negative Urine Urobilinogen Normal Ur Leukocyte Esterase 500 H Urine RBC 0 SEEN Urine WBC 50-100 SEEN Ur Squamous Epith Cells 0-5 SEEN Urine Bacteria 0 SEEN Urine Mucus 0 SEEN Treatment and Re-Evaluation :: Patient was advised of her findings. Patient was given a prescription for Bactrim. Patient was also given a prescription for a short course of tramadol. Patient was instructed to follow-up with her primary care physician in 5 to 7 days. Patient was instructed to return if worse in any way. Patient understood and was agreeable with the plan. All questions were answered. Discharge Plan Triage Chief Complaint: General Illness ED Provider: Alen Barton Dx/Rx/DC Orders Clinical Impression: Pelvic pain, Lichen sclerosus of female genitalia Instructions: ED Pelvic Pain, Unknown Cause Prescriptions: New sulfamethoxazole-trimethoprim 800-160 mg tablet 1 tab PO BID Qty: 6 0RF tramadol 50 mg tablet 50 mg PO Q6H 3 Days Qty: 12 0RF No Action fluoxetine 20 MG capsule 80 mg PO DAILY iron, carbonyl 45 MG capsule 65 mg PO BID vit,[id number] 1 TABLET tablet 1 tab PO DAILY bupropion HCl 150 MG tablet sustained-release 12 hr 150 mg PO DAILY fluconazole [Diflucan] 150 mg tablet 150 mg PO DAILY 7 Days Qty: 7 0RF amoxicillin-pot clavulanate 875-125 mg tablet 1 tab PO Q12H 14 Days Qty: 28 0RF Stand Alone Forms: ED Work / School Excuse Primary Care Provider: Cesario Topete Referrals: Cesario Topete MD [Primary Care Provider] - 5-7 Days Print Language: Faroese Disposition Disposition: Home, Self Care Discharge Date/Time: 03/24/24 13:50
[2024-03-24 12:28] LABS: Bacteria 0 SEEN /hpf (None Seen); Mucous, Urine 0 SEEN /hpf (<or=2+); Red Blood Cells-Urine 0 SEEN /hpf (0-5)
[2024-03-24 12:29] LABS: Color, Urine Yellow (Yellow); Glucose, Dipstick Normal (Normal); Ketone-Dipstick 5 mg/dl (Negative); Leukocyte Esterase-Dipstick 500 /ul (Negative); Nitrite-Dipstick Negative (Negative); Occult Blood-Urine 25 /ul (Negative); Protein-Dipstick 30 mg/dl (Negative); Urine Bilirubin Dipstick Negative (Negative); Urine Clarity Sl. Cloudy (Clear); Urine Urobilinogen Normal (Normal)
[2024-03-24 12:35] LABS: Squamous Epithelial Cells - UA 0-5 SEEN /hpf (5-10); White Blood Cells 50-100 SEEN /hpf (0-5)
[2024-03-24 13:32] VITALS: BP 132/78; PULSE 84; RESP 16; O2SAT 97
[2024-03-24] MEDS: Smz/Tmp Ds Tablet 1 TABLET PO (13:48)
== END 2024-03-24 13:50 | disposition home or self-care (01) ==
PROVIDERS: Emergency Provider Emergency Medicine; PCP Family Medicine; Visit Provider Emergency Medicine
DX: R10.2 Pelvic and perineal pain (principal); L90.0 Lichen sclerosus et atrophicus
CPT/HCPCS: 81001; 87491; 87591; 99282

== ENCOUNTER 2024-05-01 19:13 | Emergency (ER) | payer MEDICAID, SELFPAY ==
[2024-05-01 19:15] VITALS: BP 161/115; PULSE 104; RESP 18; TEMP 37; O2SAT 100; BMI 25.5
[2024-05-01] MEDS: hydrOXYzine PAM 25 MG Capsule 50 MG PO (20:00)
[2024-05-01 20:15] VITALS: BP 156/101; PULSE 97; RESP 16; O2SAT 93
[2024-05-01 20:36] LABS: Absolute Neutrophil Count 4.1 X10^3/uL (2.0-7.7); Basophil# 0.02 X10^3/uL; Basophil% 0.3 % (0-1); Eosinophil# 0.07 X10^3/uL; Eosinophils% 1.2 % (0-5); Hematocrit 35.9 % (37-47); Hemoglobin 12.2 g/dL (12.0-15.0); Lymphocyte % 23.4 % (19-41); Mean Corpuscular Hgb 28.4 pg (27.0-32.0); Mean Corpuscular Volume 83.5 fL (81-99); Mean Platelet Vol. 10.7 fl (6.2-12.0); Monocyte# 0.35 X10^3/uL; Monocyte% 5.8 % (0-10); NRBC Flagged by Analyzer 0 % (0-5); Neutrophil # 4.14 X10^3/uL (2.7-7.7); Neutrophil % 69.1 % (47-70); Platelet Count 218 K/mm3 (150-450); RBC Distribution Width CV 15.7 % (11.6-14.6); RBC Distribution Width SD 46.6 fl (35.1-43.9)
[2024-05-01 20:52] LABS: Alcohol, Blood (Medical)-Serum < 3.0 mg/dL
[2024-05-01 20:53] LABS: Anion Gap 7 (5-15); BUN 8 mg/dL (7-18); BUN/Creat Ratio 7.3 RATIO (10-20); Calcium,Total 9.1 mg/dL (8.5-10.1); Chloride 108 mmol/L (98-107); EST Glomerular Filtration Rate 59 mL/min (>60); Est Glom Filt Rate - Afr Amer 71 mL/min (>60); Estimated Creatinine Clearance 62.47 ml/min; Glucose 82 mg/dL (74-106); Potassium 3.2 mmol/L (3.5-5.1); Sodium Level 139 mmol/L (136-145)
[2024-05-01 20:59] LABS: Internal QC Validated? YES +Cl - CLEAR BKGD; Pregnancy, Serum, hCG Quali. NEGATIVE Negative; Record Kit Lot#, Serum Preg. 869294
[2024-05-01 21:00] VITALS: BP 162/106; PULSE 90; RESP 16; O2SAT 93
[2024-05-01 21:22] LABS: Amphetamine Urine VISTA NEGATIVE (<1000 ng/mL); Barbiturate Urine VISTA NEGATIVE (< 200 ng/mL); Benzodiazepine Urine VISTA POSITIVE (< 200 ng/mL); Cocaine Urine VISTA NEGATIVE (< 300 ng/mL); Ecstacy Urine VISTA POSITIVE (< 500 ng/mL); Methadone Urine VISTA NEGATIVE (< 300 ng/mL); PCP Urine VISTA NEGATIVE (< 25 ng/mL); THC Urine VISTA NEGATIVE (< 50 ng/mL); Vista UDS pH Range 5
[2024-05-01 22:00] VITALS: BP 154/97; PULSE 99; RESP 18
[2024-05-01 23:38] VITALS: BP 137/87; PULSE 82; RESP 18; TEMP 36.9; O2SAT 98
== END 2024-05-02 00:01 | disposition home or self-care (01) ==
PROVIDERS: Emergency Provider Emergency Medicine; PCP Family Medicine; Visit Provider Emergency Medicine
DX: F41.9 Anxiety disorder, unspecified (principal); F13.19 Sedative, hypnotic or anxiolytic abuse with unspecified sedative, hypnotic or anxiolytic-induced disorder
CPT/HCPCS: 80048; 80307; 82077; 84703; 85025; 99282

== ENCOUNTER 2024-05-02 14:10 | Inpatient (IN) | payer MEDICAID, SELFPAY ==
[2024-05-02 14:12] VITALS: BP 161/106; PULSE 108; RESP 14; TEMP 36.7; O2SAT 95; BMI 25.4
--- NOTE | 2024-05-02 14:33 | CT_ITS ---
STUDY: CT BRAIN WITHOUT CONTRAST REASON FOR EXAM: Female, 38 years old. Seizure following Xanax withdrawal. RADIATION DOSAGE (If Supplied By Facility): CTDIvol = ( 47.06 ) mGy, DLP = ( 802.10 ) mGycm TECHNIQUE: Transaxial CT imaging of the brain was performed without administration of intravenous contrast material. Individualized dose optimization techniques were used for this CT. COMPARISON: No relevant priors. FINDINGS: Normal soft tissue structures. 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 Normal white matter tracts of the cerebral hemispheres. Normal basal ganglia and thalami. Normal brainstem. Normal cerebellum. There is no intracranial hemorrhage. There are no findings of an acute ischemic infarction. Normal visualized paranasal sinuses. CT/Brain/Head without Contrast IMPRESSION: Normal unenhanced CT scan of the brain. Electronically Signed: Jarred Low MD at 15:20 EST ,
--- NOTE | 2024-05-02 14:39 | EDS_ITS ---
<Statement entered by Allan Dickerson DO - 05/02/24 17:30> Patient was seen and examined with physician assistant boiler operator Alessandra All components of the history and physical confirmed and agreed. History of present illness and physical exam: Patient is a 38-year-old female with a past medical history of substance abuse who presents to the emergency department with a chief complaint of seizure. States that this afternoon she was at [facility] for help with her benzodiazepine addiction and had seizure-like activity there. Her mom was called and witnessed a second seizure and noted that she bit the inside of her lip during this episode. Patient does not recall the episode. According to mother at bedside she was in a chair and her head went backward and had full body shaking. She states that she normally takes about 6 to 8 mg of Xanax daily for the past several months and has been taking Xanax for approximately 2 years otherwise. 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 She states that she took 8 mg of Xanax 3 days ago and 2 days ago took 4 mg and then yesterday took 1 mg and today she did not take any. Review of systems: Agree with above Physical exam: Agree with above MDM Patient is a 38-year-old female who presented to the emergency department with concern of benzodiazepine withdrawal. Patient will have a workup performed here and then will be cleared for detox. Patient CBC reviewed and was largely unremarkable no evidence leukocytosis white blood count normal at 8.3, he will and stable 12.6, platelet count normal at 286. Patient sodium normal at 139, potassium supplementation was low at 3 I did order oral potassium replacement and she states that she cannot swallow pills therefore she will be given IV potassium supplementation 40 mill equivalents. Patient's creatinine was elevated 1.25, magnesium normal at 2.1, troponin was 5. Patient's t est was negative and urinalysis did not reveal any evidence infection. Patient CT head and brain without contrast reviewed and showed no acute intracranial hemorrhage. Patient's EKG was independently reviewed by myself and interpreted by myself which showed sinus rhythm with a rate of 100 beats per minutes. At this point time do believe the patient will warrant admission to the hospital for her benzodiazepine detox. Patient's case was discussed with hospitalist by Alessandra physician assistant boiler operator. Dr. Aviles will accept patient for admission. Patient is agreeable this plan all questions are answered bedside. Final impression: Substance abuse Seizure Disposition: Patient will be admitted for further evaluation management Supervising attending attestation: Allan ORTEGA History of Present Illness Chief Complaint: Seizure Narrative Narrative: Patient presenting today due to concerns for a seizure that took place this afternoon she was at [facility] for help with benzodiazepine addiction and had seizure- like activity. Her mom was then called who witnessed patient have generalized convulsions that lasted about 2 or 3 minutes, she did bite her lip during this episode, she did not have any incontinence. Patient does not remember the episode occurring. She admits that she was taking about 6 to 8 mg of Xanax daily for several months, she has been taking Xanax for the past 2 years but did not always take that high of a dose. 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 She last took 8 mg of Xanax 3 days ago, 2 days ago she had 4 mg, yesterday she had 1 mg, and today she has had none. She denies recent illness, fevers, or chills. [facility] Medical History Non-healing surgical wound Surgical wound breakdown Gallstones Hemorrhoid GERD (gastroesophageal reflux disease) Anxiety and depression Abnormal Pap smear of cervix Depression Home Medications ?Medication ?Instructions ?Recorded ?Last Taken ?Type fluoxetine 20 mg capsule 80 mg PO DAILY depression 05/23/18 08/13/20 21:00 History iron, carbonyl 45 mg tablet 65 mg PO BID 04/08/19 08/13/20 21:00 History vits,calcium no.78-iron 1 tab PO DAILY 04/08/19 08/13/20 21:00 History fumarate-folic acid 29 mg-1 mg tablet bupropion HCl 150 mg tablet,12 hr 150 mg PO DAILY 08/15/20 Unknown History sustained-release amoxicillin 875 mg-potassium 1 tab PO Q12H 14 days #28 tabs 09/27/21 Unknown Rx clavulanate 125 mg tablet sulfamethoxazole 800 1 tab PO BID #6 TABLETS 03/24/24 Unknown Rx mg-trimethoprim 160 mg tablet tramadol 50 mg tablet 50 mg PO Q6H 3 days #12 tabs 03/24/24 Unknown Rx alprazolam 0.5 mg tablet 0.5 mg PO Q8H PRN PRN anxiety 05/01/24 Unknown History fluconazole 150 mg tablet 450 mg PO DAILY 05/01/24 Unknown History hydroxyzine pamoate 25 mg capsule 50 mg (2 x 25 mg) PO TID PRN PRN 05/01/24 Unkn own Rx Anxiety #30 CAPSULES prazosin 1 mg capsule 1 mg PO QPM 05/01/24 Unknown History propranolol 10 mg tablet 10 mg PO BID PRN PRN anxiety 05/01/24 Unknown History valacyclovir 1 gram tablet 1,000 mg PO DAILY 05/01/24 Unknown History Allergy/AdvReac Type Severity Reaction Status Date / Time No Known Allergies Allergy Verified 05/01/24 19:17 Family History Mother Hypertension Surgical History History of laparoscopic cholecystectomy (~04/2019) history of foot fusion History of foot surgery History of colposcopy H/O bariatric surgery Social History Smoking Status: Never smoker ROS ROS ED Constitutional Constitutional ED: Denies chills or fever(s) Cardiovascular Cardiovascular: Denies chest pain Respiratory/Chest Respiratory/Chest: Denies dyspnea Gastrointestinal Gastrointestinal: Denies abdominal pain, nausea or vomiting Genitourinary Genitourinary ED: Denies dysuria or urinary frequency Musculoskeletal Musculoskeletal: Denies arthralgias or myalgias Integumentary Denies rash Neurologic Neurologic: Reports seizures; Denies weakness EXAM Physical Exam Const Vital Signs: 05/02/24 14:12 05/02/24 16:11 Temperature 98.1 F Temperature Source Oral Pulse Rate 108 H 99 Respiratory Rate 14 18 Blood Pressure 161/106 H 151/103 H Blood Pressure Mean 124 119 Pulse Ox 95 99 Oxygen Delivery Method Room Air Positive well nourished, well developed and no apparent distress General Appearance ED: well developed HEENT Reports normocephalic, head/scalp atraumatic and dry mucous membranes HEENT Narrative: Small bite to the inside of the bottom right lip, no laceration Mouth ED: Yes dry mucous membranes Mouth: dry mucous membranes Eyes PERRL and EOMs intact bilaterally Neck full ROM and supple Chest Wall inspection of chest normal Resp normal respiratory effort and clear to auscultation bilaterally Cardio regular rate and regular rhythm GI soft to palpation, non-tender, non-distended and no masses Back/Spine normal ROM and normal to inspection Extremity normal to inspection and full ROM Neuro oriented x3, CN's II-XII intact bilaterally, moves all extremities, no focal motor deficits and no sensory deficits noted Sensorium / Orientation: awake and alert Psych mental status grossly normal and thought process normal Skin no rashes or lesions noted and no wounds MDM MDM MDM Narrative Medical decision making narrative: Patient presenting today with concerns for withdrawal seizure to benzodiazepines. She had been taking 6 to 8 mg of Xanax daily for several months, prior to that she was taking a smaller dose of Xanax daily for about 2 years. 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 3 days ago she had 6 or 8 mg, 2 days ago she had 4 mg, 1 day ago she had 1 mg, and today she had nothing. Labs were obtained, her CBC is unremarkable, she has a potassium of 3, she was ordered potassium replacement here. Her creatinine is 1.25, UA negative for UTI and . She did have a urine drug screen performed yesterday that was positive for benzodiazepines and MDMA. She was given IV fluids as clinically she appears dehydrated. She would like to detox from benzos, I did speak with the hospitalist, she will be admitted in stable condition. She was given Ativan here in the ED. Lab Data Attestation: I reviewed the patient's lab results. Labs: Laboratory Results - last 24 hr 05/02/24 05/02/24 14:40 15:42 WBC 8.3 RBC 4.50 Hgb 12.6 Hct 37.3 MCV 82.9 MCH 28.0 MCHC 33.8 RDW Std Deviation 48.0 H RDW Coeff of Nadya 15.9 H Plt Count 286 MPV 10.3 Immature Gran % (Auto) 0.400 Neut % (Auto) 81.1 H Lymph % (Auto) 12.4 L [place] % (Auto) 5.5 Eos % (Auto) 0.5 Baso % (Auto) 0.1 Absolute Neuts (auto) 6.8 Absolute Lymphs (auto) 1.03 Nucleated RBC % 0 Sodium 139 Potassium 3.0 L Chloride 107 Carbon Dioxide 21.0 Anion Gap 11 BUN 8 Creatinine 1.25 H Estim Creat Clear Calc 54.87 Est GFR (MDRD) Af Amer 61 Est GFR (MDRD) Non-Af 51 L BUN/Creatinine Ratio 6.4 L Glucose 148 H Calcium 9.3 Magnesium 2.1 Troponin I High Sens 5 Serum , Qual NEGATIVE Urine Color Yellow Urine Clarity Clear Urine pH 6.0 Ur Specific [place] 1.025 Urine Protein 30 H Urine Glucose (UA) Normal Urine Ketones 15 H Urine Occult Blood 25 H Urine Nitrite Negative Urine Bilirubin Negative Urine Urobilinogen Normal Ur Leukocyte Esterase 100 H Urine RBC 0 SEEN Urine WBC 0-5 SEEN Ur Squamous Epith Cells 0-5 SEEN Amorphous Sediment 1+ Urine Bacteria 0 SEEN Urine Mucus 0 SEEN Radiography Diagnostic Testing: Clinical Impression(s) from Imaging Studies Brain CT 05/02/24 14:33 IMPRESSION: Normal unenhanced CT scan of the brain. Electronically Signed: Jarred Low MD at 15:20 EST , EKG Initial EKG: Comments: 100 bpm, normal sinus rhythm, no ST elevation, interpreted by attending ED physician Discharge Plan Triage Chief Complaint: Seizure ED Midlevel Provider: Lauren Rios ED Provider: Allan Dickerson Dx/Rx/DC Orders Clinical Impression: Drug withdrawal seizure, Benzodiazepine abuse, Hypokalemia, Elevated serum creatinine Prescriptions: No Action fluoxetine 20 MG capsule 80 mg PO DAILY iron, carbonyl 45 MG capsule 65 mg PO BID vit,[id number] 1 TABLET tablet 1 tab PO DAILY bupropion HCl 150 MG tablet sustained-release 12 hr 150 mg PO DAILY amoxicillin-pot clavulanate 875-125 mg tablet 1 tab PO Q12H 14 Days Qty: 28 0RF sulfamethoxazole-trimethoprim 800-160 mg tablet 1 tab PO BID Qty: 6 0RF tramadol 50 mg tablet 50 mg PO Q6H 3 Days Qty: 12 0RF alprazolam 0.5 mg tablet 0.5 mg PO Q8H PRN PRN (Reason: anxiety) propranolol 10 mg tablet 10 mg PO BID PRN PRN (Reason: anxiety) fluconazole [Diflucan] 150 mg tablet 450 mg PO DAILY valacyclovir 1 gram tablet 1,000 mg PO DAILY prazosin 1 mg capsule 1 mg PO QPM hydroxyzine pamoate 25 mg capsule 50 mg PO TID PRN PRN (Reason: Anxiety) Qty: 30 0RF Primary Care Provider: Cesario Topete Referrals: Cesario Topete MD [Primary Care Provider] - Print Language: Turkmen Disposition Disposition: Acute Care [facility]
--- NOTE | 2024-05-02 14:42 | EKG12_ITS ---
Test Reason : Blood Pressure : */* mmHG Vent. Rate : 100 BPM Atrial Rate : 100 BPM P-R Int : 152 ms QRS Dur : 86 ms QT Int : 330 ms P-R-T Axes : 72 80 -27 degrees QTcB Int : 425 ms Normal sinus rhythm ST & T wave abnormality, consider inferior ischemia ST & T wave abnormality, consider anterolateral ischemia Abnormal ECG Confirmed by MIRIAM MAJANO ([id number]), content editor BLANCA VALENTINO ([id number]) on 05/03/2024 11:51:22 AM Referred By: Allan Dickerson Confirmed By: MIRIAM MAJANO
[2024-05-02 14:49] LABS: Absolute Lymphocyte Count 1.03 X10^3/uL (0.83-4.51); Absolute Neutrophil Count 6.8 X10^3/uL (2.0-7.7); Basophil# 0.01 X10^3/uL; Basophil% 0.1 % (0-1); Eosinophil# 0.04 X10^3/uL; Eosinophils% 0.5 % (0-5); Hematocrit 37.3 % (37-47); Hemoglobin 12.6 g/dL (12.0-15.0); Lymphocyte # 1.03 X10^3/ul (0.83-4.51); Lymphocyte % 12.4 % (19-41); Mean Corp Hgb Conc 33.8 g/dL (32-36); Mean Corpuscular Volume 82.9 fL (81-99); Mean Platelet Vol. 10.3 fl (6.2-12.0); Monocyte# 0.46 X10^3/uL; Monocyte% 5.5 % (0-10); NRBC Flagged by Analyzer 0 % (0-5); Neutrophil # 6.76 X10^3/uL (2.7-7.7); Neutrophil % 81.1 % (47-70); Platelet Count 286 K/mm3 (150-450); RBC Distribution Width CV 15.9 % (11.6-14.6); White Blood Count 8.3 K/mm3 (4.4-11.0)
[2024-05-02] MEDS: 0.9% Normal Saline (1000mL) 1,000 ML 999 ML IV (14:49)
[2024-05-02] MEDS: LORazepam 2 MG/ML Syringe 1 MG IV (14:49)
[2024-05-02 15:02] LABS: Internal QC Validated? YES +Cl - CLEAR BKGD; Pregnancy, Serum, hCG Quali. NEGATIVE Negative
[2024-05-02 15:04] LABS: Anion Gap 11 (5-15); BUN 8 mg/dL (7-18); BUN/Creat Ratio 6.4 RATIO (10-20); Calcium,Total 9.3 mg/dL (8.5-10.1); Chloride 107 mmol/L (98-107); Creatinine, Serum 1.25 mg/dL (0.55-1.02); EST Glomerular Filtration Rate 51 mL/min (>60); Est Glom Filt Rate - Afr Amer 61 mL/min (>60); Estimated Creatinine Clearance 54.87 ml/min; Glucose 148 mg/dL (74-106); Sodium Level 139 mmol/L (136-145)
[2024-05-02] MEDS: Potassium Chloride Oral Tablet 20 MEQ 60 MEQ PO (15:24)
[2024-05-02 15:43] LABS: Magnesium 2.1 mg/dL (1.6-2.6); Troponin-I HS 5 pg/mL (3.0-54.0)
[2024-05-02 15:51] LABS: Bacteria 0 SEEN /hpf (None Seen); Mucous, Urine 0 SEEN /hpf (<or=2+); Red Blood Cells-Urine 0 SEEN /hpf (0-5)
[2024-05-02] MEDS: Potassium Chloride 10mEq/100mL 10 MEQ/100 ML IV.SOLN. 100 MEQ IV BOLUS (15:52)
[2024-05-02 15:59] LABS: Color, Urine Yellow (Yellow); Glucose, Dipstick Normal (Normal); Ketone-Dipstick 15 mg/dl (Negative); Leukocyte Esterase-Dipstick 100 /ul (Negative); Nitrite-Dipstick Negative (Negative); Occult Blood-Urine 25 /ul (Negative); Protein-Dipstick 30 mg/dl (Negative); Specific Gravity, Urine 1.025 (1.002-1.030); Urine Bilirubin Dipstick Negative (Negative); Urine Clarity Clear (Clear); Urine Urobilinogen Normal (Normal)
--- NOTE | 2024-05-02 16:00 | PCM.HP.STD ---
HPI - General General Date of Admission: 05/02/24 Date of Service: 05/02/24 Chief Complaint: Seizure HPI Narrative ARAVIND RIVAS, is a 38 F who presented to the emergency department at [facility] on 05/02/2024 due to benzodiazepine withdrawal seizure. Patient was here last evening for nausea and vomiting related to benzodiazepine withdrawal and was able to be discharged home. She was following up with [facility] today for treatment for her benzodiazepine abuse and had a seizure during intake. She had another seizure while waiting for the squad to come to bring her here. Patient has no seizure disorder at baseline. Patient indicates she had been using 6 to 8 mg daily of Xanax but as of late has been trying to taper down as she wanted to get off benzodiazepines completely. At sounds like she did a very rapid taper with her last dose being yesterday at 1 mg. I suspect due to the rapid taper in the half-life of Xanax she had withdrawal which caused her seizure. Vital signs on presentation showed temperature of 98.1, heart rate 108 with a repeat at 99, blood pressure 161/106, respiratory is 14 oxygen saturation is 95 to 99% on room air. CBC was overall unremarkable. Chemistry showed a potassium of 3, serum creatinine 1.25 but was otherwise unremarkable. test was unremarkable. UA shows concentration with a specific gravity of 1.025 but is not consistent with infection. CT the brain was unremarkable. EKG was unremarkable. Patient was treated with 1 mg of IV Ativan in the emergency department and admission for benzodiazepine detox was recommended. Patient was agreeable and [facility] paperwork was signed. [facility] Medical History Nightmares Non-healing surgical wound Surgical wound breakdown Gallstones Hemorrhoid GERD (gastroesophageal reflux disease) Anxiety and depression Abnormal Pap smear of cervix Depression Home Medications ?Medication ?Instructions ?Recorded ?Last Taken ?Type fluoxetine 20 mg capsule 80 mg PO DAILY depression 05/23/18 08/13/20 21:00 History iron, carbonyl 45 mg tablet 65 mg PO BID 04/08/19 08/13/20 21:00 History vits,calcium no.78-iron 1 tab PO DAILY 04/08/19 08/13/20 21:00 History fumarate-folic acid 29 mg-1 mg tablet bupropion HCl 150 mg tablet,12 hr 150 mg PO DAILY 08/15/20 Unknown History sustained-release amoxicillin 875 mg-potassium 1 tab PO Q12H 14 days #28 tabs 09/27/21 Unknown Rx clavulanate 125 mg tablet sulfamethoxazole 800 1 tab PO BID #6 TABLETS 03/24/24 Unknown Rx mg-trimethoprim 160 mg tablet tramadol 50 mg tablet 50 mg PO Q6H 3 days #12 tabs 03/24/24 Unknown Rx alprazolam 0.5 mg tablet 0.5 mg PO Q8H PRN PRN anxiety 05/01/24 Unknown History fluconazole 150 mg tablet 450 mg PO DAILY 05/01/24 Unknown History hydroxyzine pamoate 25 mg capsule 50 mg (2 x 25 mg) PO TID PRN PRN 05/01/24 Unknown Rx Anxiety #30 CAPSULES prazosin 1 mg capsule 1 mg PO QPM 05/01/24 Unknown History propranolol 10 mg tablet 10 mg PO BID PRN PRN anxiety 05/01/24 Unknown History valacyclovir 1 gram tablet 1,000 mg PO DAILY 05/01/24 Unknown History Allergy/AdvReac Type Severity Reaction Status Date / Time No Known Allergies Allergy Verified 05/01/24 19:17 Family History Mother Hypertension Surgical History History of laparoscopic cholecystectomy (~04/2019) history of foot fusion History of foot surgery History of colposcopy H/O bariatric surgery Social History Smoking Status: Never smoker alcohol intake: never substance use type: other details: benzodiazapines ROS Constitutional Constitutional: Reports anorexia, fatigue and weakness; Denies change in weight, chills, fever(s), malaise, night sweats or other Eyes Eyes: Denies blurry vision, change in eye color, change in vision, discharge from eye(s), double vision, erythema, eye pain, loss of vision or other ENT HEENT: Denies abnormal hearing, dysphagia, ear pain, epistaxis, headache(s), hearing loss, nasal congestion, nasal discharge, post nasal drip, sinus pressure, sore throat or other Cardiovascular Cardiovascular: Denies chest pain, claudication, dyspnea on exertion, edema, lightheadedness, orthopnea, palpitations, paroxysmal nocturnal dyspnea, rapid heart rate, syncope or other Respiratory/Chest Respiratory/Chest: Denies cough, dyspnea, excessive phlegm production, hemoptysis, productive cough, shortness of breath at rest, shortness of breath with exertion, wheezing or other Gastrointestinal Gastrointestinal: Reports diarrhea, nausea and vomiting; Denies abdominal pain, coffee ground emesis, constipation, dyspepsia, hematemesis, hematochezia, loose stools, melena or other Genitourinary Genitourinary: Denies burning urination, difficulty urinating, dysuria, hematuria, nocturia, urinary frequency, urinary hesitancy, urinary incontinence, urinary urgency or other Musculoskeletal Musculoskeletal: Denies arthralgias, back pain, joint pain, joint stiffness, joint swelling, myalgias, neck pain or other Neurologic Neurologic: Reports confusion and seizures; Denies abnormal gait, abnormal speech, disequilibrium, dizziness, focal weakness, headache(s), numbness, paresthesias, seizure-like activity, syncope, tingling, tremor(s) or other Psychiatric Psychiatric: Reports anxiety and depression; Denies homicidal ideation, suicidal ideation or other Endocrine Endocrinology: Denies change in body appearance, cold intolerance, excessive sweating, heat intolerance, polydipsia, polyuria or other Hematologic/Lymphatic Hematologic/Lymphatic: Denies anemia, easy bleeding, easy bruising, lymphadenopathy or other Allergic/Immunologic Allergic/Immunologic: Denies rhinitis, hives, eczemia, asthma or other Vital Signs Vital Signs Vital Signs: 05/02/24 14:12 Temperature 98.1 F Temperature Source Oral Pulse Rate 108 H Respiratory Rate 14 Blood Pressure 161/106 H Blood Pressure Mean 124 Pulse Ox 95 Oxygen Delivery Method Room Air Weight Weight: 65.2 kg Body Mass Index (BMI) 25.4 Physical Exam Const alert and oriented x3; Negative for average body habitus, healthy appearing or well nourished Constitutional Narrative: Anxious appearing, white female, sitting up in bed, appears comfortable, nontoxic, family at bedside, thin General Appearance: cooperative HEENT normocephalic, head/scalp atraumatic and hearing grossly normal bilaterally HEENT Narrative: Lip slightly swollen area where she bit it during seizure Resp normal respiratory effort, no retractions, no use of accessory muscles and clear to auscultation bilaterally Auscultation: Negative for rales, rhonchi or wheezes Cardio regular rate, regular rhythm, S1 normal heart sound, S2 normal heart sound, no murmurs, no rub, no gallops and no clicks GI normal to inspection, nondistended, normoactive bowel sounds, soft to palpation and non-tender Extremity no clubbing, cyanosis or edema Extremity Narrative: 2+ radial and pedal pulses Neuro oriented x3, moves all extremities and no focal motor deficits Speech: speech normal Psych Psych Narrative: Affect is flat and mood seems somewhat depressed and anxious Results Lab / Micro Data 05/02/24 14:40 05/02/24 14:40 Labs: Laboratory Results - last 24 hr 05/02/24 14:40: WBC 8.3, RBC 4.50, Hgb 12.6, Hct 37.3, MCV 82.9, MCH 28.0, MCHC 33.8, RDW Std Deviation 48.0 H, RDW Coeff of Nadya 15.9 H, Plt Count 286, MPV 10.3, Immature Gran % (Auto) 0.400, Neut % (Auto) 81.1 H, Lymph % (Auto) 12.4 L, [place] % (Auto) 5.5, Eos % (Auto) 0.5, Baso % (Auto) 0.1, Absolute Neuts (auto) 6.8, Absolute Lymphs (auto) 1.03, Nucleated RBC % 0, Sodium 139, Potassium 3.0 L, Chloride 107, Carbon Dioxide 21.0, Anion Gap 11, BUN 8, Creatinine 1.25 H, Estim Creat Clear Calc 54.87, Est GFR (MDRD) Af Amer 61, Est GFR (MDRD) Non-Af 51 L, BUN/Creatinine Ratio 6.4 L, Glucose 148 H, Calcium 9.3, Magnesium 2.1, Troponin I High Sens 5, Serum , Qual NEGATIVE Imaging Radiology Impression Brain CT 05/02/24 14:33 IMPRESSION: Normal unenhanced CT scan of the brain. Electronically Signed: Jarred Low MD at 15:20 EST , Assessment & Plan Assessment/Plan (1) Benzodiazepine abuse: (2) Drug withdrawal seizure: (3) Hypokalemia: (4) Elevated serum creatinine: PLAN: Plan Benzodiazepine abuse with acute withdrawal -Patient has history of significant Xanax abuse utilizing 6 to 8 mg daily at peak -Has been tapering down dosage over the last 3 days -Last use prior to coming into the emergency department was 05/01/2024 and was 1 mg -Had withdrawal seizure as a result -Start phenobarbital taper -Supportive medication for withdrawal symptoms -May also benefit from gabapentin taper at discharge -[facility] consultation Benzodiazepine withdrawal seizure -2 brief seizures with postictal state earlier this afternoon as a result of benzodiazepine withdrawal -As needed Ativan available for recurrent seizure but anticipate patient should be okay once phenobarb started -Seizure precautions -No further workup at this time as this is suspected to be related to withdrawal symptoms given history Hypokalemia -Patient was replaced -recheck in a.m. -Check a.m. magnesium level Elevated serum creatinine -patient does appear to be slightly dehydrated and has had nausea vomiting with decreased p.o. intake -1 L IV fluids -Recheck lab in a.m. Elevated blood pressure -As needed available -Highly suspect related withdrawal -Will monitor and if does not trend down may need to consider treatment Nightmares -Continue prazosin 1 mg nightly Severe anxiety/depression -Avoid benzodiazepines -Awaiting confirmation of home medications and will restart once verified as appropriate DVT prophylaxis -Low risk -Encourage frequent and early ambulation CODE STATUS -Full code Charges/Coding Visit Charges Inpatient E&M: 09995 Init Hosp L2
[2024-05-02 16:11] VITALS: BP 151/103; PULSE 99; RESP 18; O2SAT 99
[2024-05-02 16:12] LABS: Amorphous Sediment 1+; Squamous Epithelial Cells - UA 0-5 SEEN /hpf (5-10); White Blood Cells 0-5 SEEN /hpf (0-5)
[2024-05-02 18:00] VITALS: BP 151/112; PULSE 93; RESP 22; O2SAT 99
[2024-05-02 18:21] VITALS: BP 151/112; PULSE 93; RESP 22; TEMP 36.6; O2SAT 99
[2024-05-02 18:42] VITALS: BMI 24.6
[2024-05-02] MEDS: Phenobarbital 32.4 MG Tablet 64.8 MG PO ×2 (18:54→22:52)
[2024-05-02] MEDS: Lactated Ringers 1,000 ML 100 ML IV (18:56)
[2024-05-02 19:05] VITALS: BP 143/97; PULSE 98; RESP 16; TEMP 36.8; O2SAT 100
[2024-05-02] MEDS: Ibuprofen 400 MG Tablet PO (20:15)
--- OUTSIDE RECORDS SUMMARY | 2024-05-02 20:29 | XMS RPT_ITS | CCD ---
Author Organization [facility] Care Team Providers Care Floral Merchandiser Name Role Phone VENICE, ABHI DEHASS Admitting Unavailable VENICE, ABHI DEJOSE Attending Unavailable VENICE, ABHI DEHASS Primary Care Unavailable VENICE, ABHI DEJOSE Referring Unavailable VENICE, ABHIJessika MCNEIL Consulting Unavailable PROVIDER, UNKNOWN Consulting Unavailable PROVIDER, UNKNOWN Consulting Unavailable SAURAV LEONE Admitting Unavailable SULEMASAURAV ALBERT Attending Unavailable SAURAV LEONE Primary Care Unavailable Jenni Echeverria MD Primary Care Provider Jenni Echeverria MD Primary Care Provider JAKE HYATT MD Unavailable [phone] PODIATRY, GENERAL Unavailable Unavailable Penny JAIMES, Shari Unavailable Unavailable LUIS RN, RONNELL Unavailable Unavailable Temo RN, Lina Unavailable Unavailab Kamron Shah MD Unavailable Deshaun SAWYER MD Unavailable Overholt GAY, Ana Unavailable Unavailable ADRIAN FERRER Unavailable Unavailable Abhi Álvarez Unavailable Unavailable Tank RN, Temitope Unavailable Unavaila EDVIN Morejon Unavailable Unavailable Jennifer RN, Cecille Unavailable Unavailable Unavailable Unavailable Unavailable Primary Care Provider Unavailabl e Unavailable Unavailable Jake Hyatt MD Primary Care Provider PRAKASH MARIE Attending Unavailable JAKE HYATT Primary Care Unavailable JAKE HYATT Primary Care Unavailable CHAVEZ ORDONEZ Referring Unavailable JAKE HYATT Primary Care Unavailable CHAVEZ ORDONEZ Attending Unavailable JAKE HYATT Primary Care Unavailable CHAVEZ ORDONEZ Attending Unavailable JAKE HYATT Primary Care Unavailable PRAKASH MARIE Referring Unavailable JAKE HYATT Primary Care Unavailable Medications Current Medications Medication Drug Class(es) Dates Sig (Normalized) Sig (Original) ALPRAZolam 0.5 mg oral tablet (20 sources) Benzodiazepine Start: 05-30-2023 Xanax 0.5 mg tablet ; 1 (one) Tablet every eight hours as needed for 0 days Quantity: 90 {Tablet} Refills: 0 Ordered: 15-Sep-2023 MD JAKE HYATT Start: 15-Sep-2023 Comments: Medication taken as needed. Start: 09-06-2022 take 1 tablet by sylvie th every eight hours as needed ALPRAZolam (Xanax) 0.5 MG tablet Take 0.5 mg by mouth every 8 hours as needed. 0 09/06/2022 Active Comment on above: Medication taken as needed. Take 0.5 mg by mouth every 8 hours as needed. 24 hr buPROPion hydrochloride 300 mg extended release oral tablet (20 sources) Aminoketone Start: 09-15-2023 Wellbutrin XL 150 mg 24 hr tablet, extended release ; 1 (one) tablet daily for 30 days Quantity: 30 {Tablet} Refills: 6 Ordered: 27-Feb-2024 MD JAKE HYATT Start: 27-Feb-2024 Comments: to take with 300mg Start: 09-15-2023 Wellbutrin XL 300 mg 24 hr tablet, extended release ; 1 Tablet daily for 30 days Quantity: 30 {Tablet} Refills: 6 Ordered: 27-Feb-2024 MD JAKE HYATT Start: 27-Feb-2024 Comments: take with 150mg Start: 02-02-2023 Wellbutrin XL 150 mg 24 hr tablet, extended release ; 1 (one) tablet daily for 30 days Quantity: 30 {Tablet} Refills: 6 Ordered: 02-Feb-2023 MD JAKE HYATT Start: 02-Feb-2023 Comments: to take with 300mg Start: 01-09-2023 Wellbutrin XL 300 mg 24 hr tablet, extended release ; 1 Tablet daily for 30 days Quantity: 30 {Tablet} Refills: 6 Ordered: 09-Jan-2023 MD JAKE HYATT Start: 09-Jan-2023 Start: 09-05-2022 take 1 tablet by sylvie th once daily buPROPion XL (Wellbutrin XL) 150 MG 24 hr tablet Take 150 mg by mouth daily. 0 09/05/2022 Active Start: 03-26-2021 take 1 tablet by sylvie th once daily in the morning buPROPion (WELLBUTRIN XL) 300 MG extended release tablet Take 1 tablet by mouth every morning 30 tablet 5 03/26/2021 Active Start: 03-24-2021 take 1 tablet by sylvie th twice daily buPROPion (WELLBUTRIN XL) 150 MG extended release tablet Indications: Mood disorder (HCC) Take 1 tablet by mouth 2 times daily 60 tablet 2 03/24/2021 Active Start: 02-16-2021 take 1 tablet by sylvie th twice daily buPROPion SR (WELLBUTRIN SR) 150 mg 12 hr tablet Take 1 tablet by mouth twice daily. 60 tablet 02/16/2021 Active Wellbutrin SR 15 0 mg tablet, 12 hr sustained-release ; 1 daily (150 mg) Status: Inactive Comment on above: to take with 300mg Take 1 tablet by sylvie th twice daily. take with 150mg clobetasol propionate 0.5 mg/ml topical cream (9 sources) Corticosteroid Start: 04-10-2024 End: 04-10-2025 clobetasol (TEMOVATE) 0.05 % cream Apply to affected area two times a day. 45 g 2 04/10/2024 04/10/2025 Active Start: 09-05-2022 End: 04-10-2024 clobetasol (TEMOVATE) 0.05 % cream Apply to affected area two times a day. 09/05/2022 04/10/2024 Discontinued copper 313 mg drug implant (8 sources) Copper-containing Intrauterine Device copper (PARAGARD T 380A) 380 square mm intrauterine device 1 Each by INTRAUTERINE route. Active fluticasone propionate 0.05 mg/actuat metered dose nasal spray (2 sources) Corticosteroid Start: 10-04-19 take 1 spray(s) nasal route once daily fluticasone (Flonase) 50 MCG/ACT nasal spray SHAKE LIQUID AND USE 1 SPRAY IN EACH NOSTRIL DAILY 16 g 0 10/03/2022 Active Start: 09-29-2021 fluticasone (F lonase) 50 MCG/ACT nasal spray 1 spray. 0 09/29/2021 Active L. acidophilus/L. rhamnosus (FLORAJEN WOMEN ORAL) (1 source) L. acidophilus/L . rhamnosus (FLORAJEN WOMEN ORAL) Take by mouth. Active Lysine (1 source) LYSINE ORAL Take by mouth. Active metroNIDAZOLE 500 mg oral tablet (3 sources) Nitroimidazole Antimicrobial Start: 2023 End: 2023 take 1 tablet by mouth twice daily metroNIDAZOLE (FLAGYL) 500 mg tablet Take 1 tablet by mouth two times a day for 7 days. 14 tablet 03/26/2024 04/02/2024 Active Mounjaro 2.5 mg/0.5 mL subcutaneous pen injector (18 sources) Start: 2023 inject 0.5 mL by subcutaneous injection every week Mounjaro 2.5 mg/0.5 mL subcutaneous pen injector ; 0.5 mL weekly for 30 days Quantity: 4 {Each} Refills: 5 Ordered: 09-Nov-2023 Start: 03-Jul-2023 Start: 07-03-2023 inject 0.5 mL by sub cutaneous injection every week Mounjaro 2.5 mg/0.5 mL subcutaneous pen injector ; 0.5 mL weekly for 30 days Quantity: 4 {Each} Refills: 5 Ordered: 03-Jul-2023 MD JAKE HYATT Start: 03-Jul-2023 polymyxin b 84329 unt/ml / trimethoprim 1 mg/ml ophthalmic solution (2 sources) Dihydrofolate Reductase Inhibitor Antibacterial, Polymyxin-class Antibacterial Start: 01-16-2024 End: 01-23-2024 take 2 drop(s) into the eye(s) every six hours trimethoprim-polymyxin (POLYTRIM) 10,000 unit- 1 mg/mL ophthalmic solution Indications: Hordeolum externum right upper eyelid Use 2 Drops in both eyes every 6 hours for 7 days. 10 mL 0 01/16/2024 01/23/2024 Active Start: 09-21-2022 trimethoprim-p olymyxin b (Polytrim) ophthalmic solution tirzepatide (11 sources) tirzepatide ; 1 injection weekly (getting on her own not Rx) tirzepatide (MOUNJARO) 10 mg/0.5 mL pen injector (1 source) inject 7.5 mg by subcutaneous injection every week tirzepatide (MOUNJARO) 10 mg/0.5 mL pen injector Inject 7.5 mg subcutaneously one time a week. Active tirzepatide 10 mg/0.5 mL subcutaneous pen injector (11 sources) tirzepatide 10 m g/0.5 mL subcutaneous pen injector ; (10 mg/0.5 mL) valACYclovir 1000 mg oral tablet (3 sources) Herpesvirus Nucleoside Analog DNA Polymerase Inhibitor, Herpes Simplex Virus Nucleoside Analog DNA Polymerase Inhibitor, Herpes Zoster Virus Nucleoside Analog DNA Polymerase Inhibitor Start: 024 End: 025 take 1 tablet by mouth once daily valACYclovir (VALTREX) 1 gram tablet Take 1 tablet by mouth once daily. Suppressive therapy. 90 tablet 3 04/15/2024 04/15/2025 Active Start: 04-10-2024 End: 04-15-2024 take 1 tablet by mouth twice daily valACYclovir (VALTREX) 1 gram tablet Take 1 tablet by mouth two times a day for 5 days. 10 tablet 04/10/2024 04/15/2024 Active Completed/Discontinued Medications Medication Drug Class(es) Dates Sig (Normalized) Sig (Original) acetaminophen 500 mg oral tablet (20 sources) take 2 tablets by mouth every four hours as needed TYLENOL EXTRA STRENGTH, 500MG (Oral Tablet) ; 2 every 4 hours as needed (500 MG) Status: Inactive Comments: Medication taken as needed. Comment on above: Medication taken as needed. acetaminophen 500 mg / diphenhydrAMINE hydrochloride 25 mg oral tablet (20 sources) Histamine-1 Receptor Antagonist TYLENOL PM EXTRA STRENGTH, 500-25MG (Oral Tablet) ; 2 at bedtimes as needed (500-25 MG) Status: Inactive Comments: Medication taken as needed. Comment on above: Medication taken as needed. acetaminophen 325 mg / HYDROcodone bitartrate 5 mg oral tablet (20 sources) Opioid Agonist take 1 tablet by mouth at bedtime NORCO, 5-325MG (Oral Tablet) ; 1 at bedtime (5-325 MG) Status: Inactive acyclovir 400 mg oral tablet (6 sources) Herpesvirus Nucleoside Analog DNA Polymerase Inhibitor, Herpes Simplex Virus Nucleoside Analog DNA Polymerase Inhibitor, Herpes Zoster Virus Nucleoside Analog DNA Polymerase Inhibitor Start: 03-25-2024 End: 04-15-2024 take 1 tablet by mouth three times daily acyclovir (ZOVIRAX) 400 mg tablet Indications: Vulvar lesion Take 1 tablet by mouth three times a day for 10 days. 30 tablet 04/05/2024 04/10/2024 Discontinued amoxicillin 500 mg oral tablet (20 sources) Penicillin-class Antibacterial Start: 03-30-2015 End: 09-24-2015 take 1 tablet by mouth three times daily AMOXICILLIN, 500MG (Oral Tablet) ; 1 (one) Tablet three times daily for 0 days Quantity: 21 {Tablet} Refills: 0 Ordered: 24-Sep-2015 THEODORE Rodriguez Start: 30-Mar-2015 End: 24-Sep-2015 Status: Inactive azithromycin 250 mg oral tablet (20 sources) Macrolide Antimicrobial Start: 06-01-2017 End: 06-06-2017 Azithromycin 250 MG Oral Tablet ; 2 (two) Tablets on day one then 1 daily for 4 days for 5 days Quantity: 6 {Tablet} Refills: 0 Ordered: 18-Sep-2017 MD JAKE HYATT Start: 01-Jun-2017 End: 06-Jun-2017 Status: Inactive Comments: medication to be dispensed in office Comment on above: medication to be dis pensed in office busPIRone hydrochloride 10 mg oral tablet (20 sources) Start: 05-24-2021 End: 04-10-2024 busPIRone (BUSPAR) 10 mg tablet Take 10 mg by mouth. 05/24/2021 04/10/2024 Discontinued (Other) Start: 04-07-2021 take 1 tablet by [facility] three times daily as needed for anxiety busPIRone (BUSPAR) 5 MG tablet Indications: Generalized anxiety disorder with panic attacks Take 1 tablet by mouth 3 times daily as needed (anxiety) 90 tablet 1 04/07/2021 Active Start: 03-24-2016 End: 11-16-2016 take 1 tablet by mouth twice daily BusPIRone HCl 15 MG Oral Tablet ; 1 (one) Tablet two times daily for 0 days Quantity: 60 {Tablet} Refills: 1 Ordered: 16-Nov-2016 EDVIN BANEGAS Start: 24-Mar-2016 End: 16-Nov-2016 Status: Inactive Comment on above: Take 10 mg by mouth. carvedilol 25 mg oral tablet (20 sources) alpha-Adrenergic Jay, beta-Adrenergic Jay Start: 017 End: take 1 tablet by mouth twice daily Coreg 25 MG Oral Tablet ; one Tablet two times daily for 30 days Quantity: 60 {Tablet} Refills: 6 Ordered: 09-Dec-2021 THEODORE Fu Start: 01-Jun-2017 End: 09-Dec-2021 Status: Inactive Comments: generic ok Comment on above: generic ok cholecalciferol 0.05 mg oral tablet (2 sources) Vitamin D Start: 021 End: take 3 tablets by mouth once daily cholecalciferol (VITAMIN D3) 50 mcg (2,000 unit) tablet Take 3 tablets by mouth once daily. 0 11/06/2020 01/16/2024 Discontinued Comment on above: Take 3 tablets by [facility] once daily. ciprofloxacin 500 mg oral tablet (20 sources) Quinolone Antimicrobial Cipro 500 MG Oral Tablet ; 1 b id (500 MG) Status: Inactive codeine phosphate 2 mg/ml / guaiFENesin 20 mg/ml oral solution (20 sources) Opioid Agonist Start: 016 End: take 1 [tsp_us] by mouth every four hours as needed GuaiFENesin AC 100-10 MG/5ML Oral Syrup ; 1 (one) teaspoon every four hours, as needed for cougth for 0 days Quantity: 4 {Ounce} Refills: 1 Ordered: 07-Mar-2016 THEODORE Fu Start: 03-Oct-2015 End: 07-Mar-2016 Status: Inactive Comments: Medication taken as needed. Comment on above: Medication taken as needed. cyanocobalamin, vitamin B-12, (VITAMIN B-12 ORAL) (2 sources) End: take 1000 mg by mouth once daily cyanocobalamin, vitamin B-12, (VITAMIN B-12 ORAL) Take 1,000 mg by mouth once daily. 0 01/16/2024 Discontinued take 1000 mg by mouth once daily cyanocobalamin, vitamin B-12, (VITAMIN B-12 ORAL) Take 1,000 mg by mouth once daily. 0 Active Comment on above: [facility] 24 hr diclofenac sodium 100 mg extended release oral tablet (20 sources) Nonsteroidal Anti-inflammatory Drug take 1 tablet by mouth every twenty-four hours VOLTAREN-XR, 100MG (Oral Tablet Extended Release 24 Hour) ; 1 daily (100 MG) Status: Inactive escitalopram 10 mg oral tablet (8 sources) Serotonin Reuptake Inhibitor Start: End: take 1 tablet by mouth once daily escitalopram oxalate (LEXAPRO) 10 mg tablet Take 1 tablet by mouth once daily. 30 tablet 5 11/03/2020 01/16/2024 Discontinued Start: 11-02-2020 End: 01-16-2024 take 1 tablet by mouth once daily escitalopram oxalate (LEXAPRO) 5 mg tablet Take 1 tablet by mouth once daily. 14 tablet 0 11/03/2020 01/16/2024 Discontinued Comment on above: Take 1 tablet by sylvie th once daily. for two weeks, ten may increase to two tablets daily after two weeks if needed Take 1 tablet by sylvie th once daily. etodolac 400 mg oral tablet (20 sources) Nonsteroidal Anti-inflammatory Drug take 1 tablet by mouth twice daily as needed Etodolac 400 MG Oral Tablet ; 1 two times daily, as needed (400 MG) Status: Inactive Comments: Medication taken as needed. Comment on above: Medication taken as needed. ferric carboxymaltose (INJECTAFER) 750 mg in sodium chloride 0.9 % 250 mL IVPB (2 sources) Start: 04-14-20 End: 04-14-20 ferric carboxymaltose (INJECTAFER) 750 mg in sodium chloride 0.9 % 250 mL IVPB Start: 04-01-2021 End: 04-01-2021 ferric carboxymaltose (INJEC TAFER) 750 mg in sodium chloride 0.9 % 250 mL IVPB ferrous sulfate 325 mg oral tablet (12 sources) End: 04-10-2024 take 1 tablet by mouth twice daily ferrous sulfate 325 mg (65 mg iron) tablet Take 325 mg by mouth twice daily. 04/10/2024 Discontinued (Other) take 1 tablet by mouth in the mo rning ferrous sulfate 325 (65 Fe) MG tablet Take 325 mg by mouth in the morning and 325 mg in the evening. 0 Active take 1 tablet by mouth three pedro luis es daily ferrous sulfate (IRON 325) 325 (65 Fe) MG tablet Take 325 mg by mouth 3 times daily 0 Active Comment on above: Take 325 mg by mouth twice daily. FLUoxetine 40 mg oral capsule (20 sources) Serotonin Reuptake Inhibitor Start: 02-23-2023 End: 03-28-2024 FLUoxetine 40 mg capsule ; 1 (one) Capsule daily for 30 days Quantity: 30 {Capsule} Refills: 0 Ordered: 27-Feb-2024 Start: 27-Feb-2024 End: 28-Mar-2024 Status: Inactive Comments: to replace 20mg Start: 07-06-2022 take 1 capsule by mo ut once daily FLUoxetine (PROzac) 40 MG capsule Take 40 mg by mouth daily. 0 07/06/2022 Active Comment on above: to replace 20mg Take 1 capsule by mo ut every afternoon. gabapentin 300 mg oral capsule (20 sources) Anti-epileptic Agent Start: 01-06-2024 End: 04-10-2024 take 1 capsule by mouth three times daily gabapentin (NEURONTIN) 300 mg capsule Take 300 mg by mouth three times a day. 01/06/2024 04/10/2024 Discontinued (Other) Start: 08-31-2022 take 1 capsule by mo ut once daily gabapentin (Neurontin) 100 MG capsule Take 100 mg by mouth Nightly. 0 08/31/2022 Active Comment on above: Per jamal MADDEN for pauline t hydrOXYzine hydrochloride 10 mg oral tablet (15 sources) Antihistamine Start: 11-09-2023 End: 11-24-2023 hydrOXYzine HCL 10 mg tablet ; 1 (one) tablet as needed up to q 8 hours prn anxiety for 15 days Quantity: 45 {Tablet} Refills: 0 Ordered: 09-Nov-2023 MD Kamron TRIPLETT Start: 09-Nov-2023 End: 24-Nov-2023 Status: Inactive Comments: Medication taken as needed. Do not drive or operate equipment within 4 hours of taking. Start: 11-07-2021 take 1-2 tablets by mouth twice daily as needed for anxiety hydrOXYzine HCl (Atarax) 25 MG tablet TAKE 1 TO 2 TABLETS BY MOUTH TWICE DAILY NEEDED FOR ANXIETY 0 11/07/2021 Active Start: 03-30-2021 hydrOXYzine (A TARAX) 25 MG tablet Indications: Mood disorder (HCC) Take one to two tabs twice daily as needed for anxiety 120 tablet 1 03/30/2021 Active Start: 03-10-2021 End: 04-09-2021 take 1 tablet by mouth every eight hours as needed for anxiety hydrOXYzine (ATARAX) 25 MG tablet Indications: Mood disorder (HCC) Take 1 tablet by mouth every 8 hours as needed for Anxiety 90 tablet 0 03/10/2021 04/09/2021 Active Comment on above: Medication taken as needed. Do not drive or operate equipment within 4 hours of taking. ibuprofen 600 mg oral tablet (20 sources) Nonsteroidal Anti-inflammatory Drug Start: 03-30-2015 End: 03-07-2016 take 1 tablet by mouth three times daily as needed Ibuprofen 600 MG Oral Tablet ; 1 (one) Tablet Tablet three times daily, as needed for sore throat for 0 days Quantity: 30 {Tablet} Refills: 0 Ordered: 07-Mar-2016 THEODORE Fu Start: 30-Mar-2015 End: 07-Mar-2016 Status: Inactive Comments: Medication taken as needed. take 2 tablets by [facility] every four to six hours as needed IBUPROFEN, 200MG (Oral Tablet) ; 2 every 4-6 hours as needed (200 MG) Status: Inactive Comments: Medication taken as needed. Comment on above: Medication taken as needed. lidocaine 40 mg/ml topical cream (8 sources) Antiarrhythmic, Amide Local Anesthetic Start: 03-28-2024 End: 04-15-2024 lidocaine (LMX) 4 % cream Indications: Vulvar lesion 1 application of small amount to affected area up to 7 times a day as needed for pain control. 120 g 03/28/2024 04/15/2024 Discontinued Start: 03-25-2024 End: 03-28-2024 lidocaine 4 % gel Indication s: Vulvar lesion 1 application of small amount to affected area up to 7 times a day as needed for pain control. 120 g 03/25/2024 03/28/2024 Discontinued lithium carbonate 300 mg oral tablet (20 sources) Start: 01-27-2023 End: 11-09-2023 lithium carbonate 300 mg tablet ; 1 (one) tablet three times daily for 30 days Quantity: 90 {Tablet} Refills: 1 Ordered: 09-Nov-2023 Start: 27-Jan-2023 End: 09-Nov-2023 Status: Inactive losartan potassium 25 mg oral tablet (20 sources) Angiotensin 2 Receptor Jay Start: 10-02-2022 End: 04-10-2024 Cozaar 25 mg tablet ; 1 (one) Tablet daily for 30 days Quantity: 30 {Tablet} Refills: 1 Ordered: 09-Nov-2023 Start: 24-Jul-2023 End: 09-Nov-2023 Status: Inactive Comment on above: Take 1 tablet by sylvie th every afternoon. nabumetone 500 mg oral tablet (20 sources) Nonsteroidal Anti-inflammatory Drug Start: 07-09-2014 End: 08-29-2014 take 1 tablet by mouth twice daily at mealtime as needed for pain NABUMETONE, 500MG (Oral Tablet) ; 1 (one) Tablet bid with food prn pain for 30 days Quantity: 60 {Tablet} Refills: 1 Ordered: 29-Aug-2014 THEODORE Francis Start: 09-Jul-2014 End: 29-Aug-2014 Status: Inactive oxyCODONE hydrochloride 5 mg oral tablet (20 sources) Opioid Agonist take 1 tablet by mouth every eight hours OxyCODONE HCl 5 MG Oral Tablet ; 1 q 8 hrs (5 MG) Status: Inactive prazosin 1 mg oral capsule (7 sources) alpha-Adrenergic Jay Start: 12-20-2023 End: 04-10-2024 take 1 capsule by mouth once daily 1 hour(s) before bedtime prazosin (MINIPRESS) 1 mg cap TAKE ONE CAPSULE BY MOUTH DAILY APPROXIMATELY ONE HOUR BEFORE BEDTIME. 12/20/2023 04/10/2024 Discontinued (Other) propranolol hydrochloride 10 mg oral tablet (7 sources) beta-Adrenergic Jay Start: 12-12-2023 End: 04-10-2024 take 1 tablet by mouth once daily in the morning propranolol (INDERAL) 10 mg tablet TAKE 1 TABLET BY MOUTH EVERY DAY IN THE MORNING .MAY REPEAT IN AFTERNOON IF NEEDED. 12/12/2023 04/10/2024 Discontinued (Other) semaglutide (weight loss) 0.25 mg/0.5 mL subcutaneous pen injector (20 sources) Start: 05-22-2023 End: 07-03-2023 inject 0.5-1 mL by subcutaneous injection every week semaglutide (weight loss) 0.25 mg/0.5 mL subcutaneous pen injector ; 0.5 to 1 mL weekly for 60 days Quantity: 8 {Milliliter} Refills: 1 Ordered: 03-Jul-2023 MD JAKE HYATT Start: 22-May-2023 End: 03-Jul-2023 Status: Inactive Comments: May increase to 0.5mg weekly after 4 weeks Start: 05-22-2023 inject 0.5-1 mL by s ubcutaneous injection every week semaglutide (weight loss) 0.25 mg/0.5 mL subcutaneous pen injector ; 0.5 to 1 mL weekly for 60 days Quantity: 8 {Milliliter} Refills: 1 Ordered: 22-May-2023 MD JAKE HYATT Start: 22-May-2023 Comments: May increase to 0.5mg weekly after 4 weeks Comment on above: May increase to 0.5m g weekly after 4 weeks 1000 ml sodium chloride 9 mg/ml injection (2 sources) Start: 04-14-2021 End: 04-14-2021 0.9 % sodium chloride infusion Start: 04-01-2021 End: 04-01-2021 0.9 % sodium chloride infusi on traMADol hydrochloride 50 mg oral tablet (20 sources) Opioid Agonist take 1 tablet by mouth every eight hours as needed TraMADol HCl 50 MG Oral Tablet ; 1 every eight hours, as needed (50 MG) Status: Inactive Comments: Medication taken as needed. Comment on above: Medication taken as needed. zolpidem tartrate 10 mg oral tablet (20 sources) gamma-Aminobutyric Acid-ergic Agonist take 1 tablet by mouth once daily at bedtime Zolpidem Tartrate 10 MG Oral Tablet ; 1 qhs (10 MG) Status: Inactive Problems Active Problems Problem Classification Problem Date Documented Da te Episodic/Chronic Abdominal pain (1 source) Vulval pain; Translations: [Pelvic and perineal pain] 03-25-2024 Episodic Anxiety disorders (20 sources) Generalized anxiety disorder; Translations: [Generalized anxiety disorder] Onset: 06-12-2015 04-07-2021 Chronic Coagulation and hemorrhagic disorders (9 sources) Lupus anticoagulant disorder; 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] Onset: 08-28-2019 02-21-2020 Chronic Essential hypertension (20 sources) Benign hypertension; Translations: [Essential (primary) hypertension] 02-02-2023 Chronic Immunizations and screening for infectious disease (20 sources) Requires diphtheria, tetanus and pertussis vaccination; Translations: [Encounter for immunization] Onset: 03-25-2024 08-29-2014 Episodic Inflammation; infection of eye (except that caused by tuberculosis or sexually transmitteddisease) (2 sources) Hordeolum externum of upper eyelid of right eye; Translations: [Hordeolum externum right upper eyelid] 01-16-2024 Episodic Menstrual disorders (2 sources) Menstrual period late; Translations: [Irregular menstruation, unspecified] Onset: 04-15-2024 04-15-2024 Chronic Other aftercare (20 sources) H/O: high risk medication; Translations: [Other director long term care (current) drug therapy] 09-23-2022 Episodic Other female genital disorders (3 sources) Lesion of vulva; Translations: [Other specified noninflammatory disorders of vulva and perineum] 03-25-2024 Episodic Other female genital disorders (1 source) Vaginal discharge; Translations: [Other specified noninflammatory disorders of vagina] 03-25-2024 Episodic Other female genital disorders (1 source) Other specified noninflammatory disorders of vulva and perineum; Translations: [Vulvar lesion] Onset: 03-25-2024 Episodic Other gastrointestinal disorders (6 sources) Malabsorption - iron; Translations: [Intestinal malabsorption, unspecified] Onset: 03-24-2021 03-24-2021 Chronic Other non-traumatic joint disorders (20 sources) Ankle pain; Translations: [Pain in right ankle and joints of right foot] 07-09-2014 Episodic Other nutritional; endocrine; and metabolic disorders (20 sources) Obese class I; Translations: [Obesity, unspecified] 05-22-2023 Chronic Other skin disorders (13 sources) Lichen sclerosus et atrophicus; Translations: [Circumscribed scleroderma] Onset: 06-12-2018 04-07-2021 Chronic Other upper respiratory infections (20 sources) Acute bacterial pharyngitis; Translations: [Acute pharyngitis due to other specified organisms] 06-01-2017 Episodic Viral infection (2 sources) Herpes simplex infection of skin; 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] 04-10-2024 Chronic Past or Other Problems Problem Classification Problem Date Documented Date Episodic/Chronic Conditions associated with dizziness or vertigo (20 sources) Conditions associated with dizziness or vertigo 05-12-2016 Deficiency and other anemia (6 sources) Iron deficiency anemia due to dietary causes; Translations: [Other iron deficiency anemias] Onset: 03-24-2021 03-24-2021 Episodic Headache; including migraine (11 sources) Headache; including migraine 11-09-2023 Residual codes; unclassified (9 sources) Gestation period, 9 weeks; Translations: [9 weeks gestation of ] Onset: 02-20-2020 02-21-2020 Episodic Unclassified (20 sources) Anxiety - The anxiety is characterized as sinking feeling and nervousness. The symptoms have been associated with agitation, feeling of sadness, headache, insomnia and mutism, while the symptoms have not been associated with chest pain, dizziness, dry mouth, nausea, suicidal thoughts or vomiting. Note for Anxiety : going through divorce. 01-27-2023 Unclassified (18 sources) Anxiety - Note for Anxiety : Pt is having a hard time right now with her . She is unsure if she needs to adjust medication doses. 05-26-2022 Unclassified (18 sources) [ADDITIONAL REASON] HYPERTENSION - Note for HYPERTENSION : Pt said she knows her BP has been elevated lately. She thinks it is stress from issues with her . She feels like BP is high. 05-26-2022 Unclassified (20 sources) Anxiety Disorders - Note for Anxiety disorders : had moved away and now wants to re-establish with [facility]. and have 6 boys between the parents. 12-09-2021 Unclassified (17 sources) Routine Check - Patient is here to review the medical problem(s) of hypertension and other: ____ (anxiety). 06-01-2017 Unclassified (17 sources) [ADDITIONAL REASON] sore throat - The onset of the sore throat has been acute and has been occurring for 1 day. 06-01-2017 Unclassified (20 sources) Anxiety - The onset of the anxiety has been acute and has been occurring in a persistent pattern for years. 03-07-2016 Unclassified (20 sources) Pre-Op Visit - The procedure scheduled is a Excision of painful hardware, right foot on 10/09/15. The surgeon for the procedure will be Dr. Guerrero. Note for Pre-op visit : Surgery scheduled at [facility] 09-24-2015 Unclassified (20 sources) sore throat - The onset of the sore throat has been acute and has been occurring in a persistent pattern for 5 days. The symptoms have been associated with cough, difficulty in swallowing and fever. Note for sore throat : . 03-30-2015 Unclassified (20 sources) Pre-Op Visit - The procedure scheduled is a Subtalar Joint Fusion; Peroneal Tendon repair/ Navicular Coalition on 09/12/2014. The surgeon for the procedure will be Dr. Guerrero. Note for Pre-op visit : Here for surgury clearance. See form. Will have Blood Work 09/08/14 08-29-2014 Unclassified (20 sources) Foot pain - The onset of the foot pain has been sudden and has been occurring in a persistent pattern for 2 months. The course has been increasing. The foot pain is moderate. The foot pain is characterized as a sharp stabbing and pulling. The pain affects the right foot. The foot pain is described as being located in the lateral column and heel. The foot pain is aggravated by changes in direction and prolonged standing. Note for Foot pain : Here for exam. 07-09-2014 Unclassified (4 sources) HYPERTENSION - Note for HYPERTENSION : Pt said she knows her BP has been elevated lately. She thinks it is stress from issues with her . She feels like BP is high. 05-26-2022 Unclassified (4 sources) [ADDITIONAL REASON] Anxiety - Note for Anxiety : Pt is having a hard time right now with her . She is unsure if she needs to adjust medication doses. 05-26-2022 Unclassified (5 sources) sore throat - The onset of the sore throat has been acute and has been occurring for 1 day. 06-01-2017 Unclassified (5 sources) [ADDITIONAL REASON] Routine Check - Patient is here to review the medical problem(s) of hypertension and other: ____ (anxiety). 06-01-2017 Unclassified (11 sources) [ADDITIONAL REASON] HYPERTENSION - There has been no associated chest pain, dyspnea or edema. 11-09-2023 Results Test Name Value Interpretation Reference Range Facil ity Laboratory - Chemistry and C hemistry - challengeon 05-02-2024 Chloride [Moles/Vol] 107 mmol/L Normal 98 - 107 mmol/L [facility] Work Phone: CO2 [Moles/Vol] 21.0 mmol/L Normal 21.0 - 32.0 mmol/L [facility]; [facility] Work Phone: Creatinine [Mass/Vol] 1.25 mg/dL Abnormal 0.55 - 1.02 mg/dL [facility]; [facility] Work Phone: GFR/1.73 sq M.predicted among non-blacks MDRD (S/P/Bld) [Vol rate/Area] 51 mL/min/{1.73_m2} Abnormal [facility]; [facility] Work Phone: Glucose [Mass/Vol] 148 mg/dL Abnormal 74 - 106 mg/dL [facility]; [facility]. Work Phone: Magnesium [Mass/Vol] 9.3 mg/dL Normal 8.5 - 10.1 mg/dL [facility]; [facility]. Work Phone: Magnesium [Mass/Vol] 2.1 mg/dL Normal 1.6 - 2.6 mg/dL [facility]; [facility] Work Phone: Magnesium [Mass/Vol] 15 mg/dL Abnormal [facility]; [facility] Work Phone: Magnesium [Mass/Vol] 30 mg/dL Abnormal [facility]; [facility]. Work Phone: Potassium [Moles/Vol] 3.0 mmol/L Abnormal 3.5 - 5.1 mmol/L [facility]; [facility] Work Phone: Sodium [Moles/Vol] 139 mmol/L Normal 136 - 145 mmol/L [facility]; [facility] Work Phone: Urea nitrogen [Mass/Vol] 8 mg/dL Normal 7 - 18 mg/dL [facility]; [facility] Work Phone: Laboratory - Hematology and Cell countson 05-02-2024 Basophils/100 WBC (Bld) 0.1 % Normal 0 - 1 [facility]; [facility] Work Phone: Eosinophils/100 WBC (Bld) 0.5 % Normal 0 - 5 [facility]; [facility] Work Phone: Erythrocyte distribution width (RBC) [Ratio] 15.9 % Abnormal 11.6 - 14.6 [facility]; [facility] Work Phone: Hematocrit (Bld) [Volume fraction] 37.3 % Normal 37 - 47 [facility]; [facility] Work Phone: Hemoglobin (Bld) [Mass/Vol] 12.6 g/dL Normal 12.0 - 15.0 g/dL [facility]; [facility] Work Phone: Lymphocytes/100 WBC (Bld) 12.4 % Abnormal 19 - 41 [facility]; [facility] Work Phone: MCH (RBC) [Entitic mass] 28.0 pg Normal 27.0 - 32.0 pg [facility]; [facility] Work Phone: MCHC (RBC) [Mass/Vol] 33.8 g/dL Normal 32 - 36 g/dL [facility]; [facility] Work Phone: MCV (RBC) [Entitic vol] 82.9 fL Normal 81 - 99 fL [facility]; [facility] Work Phone: Monocytes/100 WBC (Bld) 5.5 % Normal 0 - 10 [facility]; [facility]. Work Phone: Neutrophils/100 WBC (Bld) 81.1 % Abnormal 47 - 70 [facility]; [facility] Work Phone: Nucleated RBC (Bld) [#/Vol] 0 10*3/uL Normal 0 - 5 [facility]; [facility] Work Phone: Platelet mean volume (Bld) [Entitic vol] 10.3 fL Normal 6.2 - 12.0 fL [facility]; [facility] Work Phone: Platelets (Bld) [#/Vol] 286 10*3/uL Normal 150 - 450 K/mm3 [facility]; [facility] Work Phone: RBC (Bld) [#/Vol] 4.50 10*6/uL Normal 4.2 - 5.4 {M/mm3} [facility]; [facility]. Work Phone: WBC (Bld) [#/Vol] 8.3 10*3/uL Normal 4.4 - 11.0 K/mm3 [facility]; [facility]. Work Phone: Laboratory - Microbiology an d Antimicrobial susceptibilityon 05-02-2024 Bacteria identified Cx Nom (Unsp spec) 0 SEEN Normal [facility]; [facility] Work Phone: Laboratory - Specimen inform ationon 05-02-2024 Clarity (U) Clear Normal [facility].; [facility]. Work Phone: Color (U) Yellow Normal [facility].; [facility]. Work Phone: Laboratory - Urinalysison Mucus Ql (Urine sed) 0 SEEN Normal [facility].; [facility]. Work Phone: Nitrite Ql (U) Negative Normal [facility].; [facility], [facility]. Work Phone: No Panel Informationon 05-02 Absolute Lymph 1.03 {X10_3/uL} Normal 0.83 - 4.5 1 {X10_3/uL} [facility]. Work Phone: Absolute Neut 6.8 {X10_3/uL} Normal 2.0 - 7.7 {X10_3/uL} [facility].; [facility]. Work Phone: AMORPHOUS 1+ Normal [facility].; [facility], [facility]. Work Phone: BILIRUBIN URINE Negative Normal [facility].; [facility]. Work Phone: BUN/CRE 6.4 {RATIO} Abnormal 10 - 20 {RATIO} [facility]. Work Phone: ECRCL 54.87 ml/min Normal [facility].; [facility], [facility]. Work Phone: EPI,SQUAMOUS 0-5 SEEN Normal 5 - 10 {/hpf} [facility]. Work Phone: EST GFR - AA 61 mL/min Normal [facility]; [facility] Work Phone: GAP 11 Normal 5 - 15 [facility]; [facility] Work Phone: GLUCOSE, UR Normal Normal [facility]; [facility] Work Phone: HCG, SERUM QUAL Negative Normal [facility]; [facility] Work Phone: IG% 0.400 Normal 0.0 - 0.9 [facility]; [facility] Work Phone: LEUK ESTERASE 100 /ul Abnormal [facility]; [facility] Work Phone: OCCULT BLOOD-UR 25 /ul Abnormal [facility]; [facility] Work Phone: pH UR 6.0 Normal 5.0 - 8.0 [facility]; [facility] Work Phone: RBC 0 SEEN Normal 0 - 5 {/hpf} [facility]; [facility] Work Phone: RDW SD 48.0 fL Abnormal 35.1 - 43.9 fL [facility]; [facility] Work Phone: SP.GR. DIPSTX 1.025 Normal 1.002 - 1.030 [facility]; [facility] Work Phone: TROPONIN-I HS 5 pg/mL Normal 3.0 - 54.0 pg/mL [facility]; [facility] Work Phone: UROBILI Normal Normal [facility]; [facility] Work Phone: WBC 0-5 SEEN Normal 0 - 5 {/hpf} [facility]; [facility] Work Phone: Laboratory - Chemistry and C hemistry - challengeon 05-01-2024 Chloride [Moles/Vol] 108 mmol/L Abnormal 98 - 107 mmol/L [facility]; [facility] Work Phone: CO2 [Moles/Vol] 24.0 mmol/L Normal 21.0 - 32.0 mmol/L [facility]; [facility] Work Phone: Creatinine [Mass/Vol] 1.10 mg/dL Abnormal 0.55 - 1.02 mg/dL [facility]; [facility] Work Phone: GFR/1.73 sq M.predicted among non-blacks MDRD (S/P/Bld) [Vol rate/Area] 59 mL/min/{1.73_m2} Abnormal [facility]; [facility] Work Phone: Glucose [Mass/Vol] 82 mg/dL Normal 74 - 106 mg/dL [facility]; [facility] Work Phone: Magnesium [Mass/Vol] 9.1 mg/dL Normal 8.5 - 10.1 mg/dL [facility]; [facility] Work Phone: Potassium [Moles/Vol] 3.2 mmol/L Abnormal 3.5 - 5.1 mmol/L [facility]; [facility] Work Phone: Sodium [Moles/Vol] 139 mmol/L Normal 136 - 145 mmol/L [facility]; [facility] Work Phone: Urea nitrogen [Mass/Vol] 8 mg/dL Normal 7 - 18 mg/dL [facility]; [facility] Work Phone: Laboratory - Drug toxicology on 05-01-2024 Amphetamines Ql (U) Negative Normal [facility]; [facility]. Work Phone: Cocaine Ql (U) Negative Normal [facility]; [facility]. Work Phone: Methadone Ql (U) Negative Normal [facility]; [facility] Work Phone: Opiates Ql (U) Negative Normal [facility]; [facility]. Work Phone: Laboratory - Hematology and Cell countson 05-01-2024 Basophils/100 WBC (Bld) 0.3 % Normal 0 - 1 [facility]; [facility] Work Phone: Eosinophils/100 WBC (Bld) 1.2 % Normal 0 - 5 [facility]; [facility] Work Phone: Erythrocyte distribution width (RBC) [Ratio] 15.7 % Abnormal 11.6 - 14.6 [facility]; [facility] Work Phone: Hematocrit (Bld) [Volume fraction] 35.9 % Abnormal 37 - 47 [facility]; [facility] Work Phone: Hemoglobin (Bld) [Mass/Vol] 12.2 g/dL Normal 12.0 - 15.0 g/dL [facility]; [facility] Work Phone: Lymphocytes/100 WBC (Bld) 23.4 % Normal 19 - 41 [facility]; [facility] Work Phone: MCH (RBC) [Entitic mass] 28.4 pg Normal 27.0 - 32.0 pg [facility]; [facility] Work Phone: MCHC (RBC) [Mass/Vol] 34.0 g/dL Normal 32 - 36 g/dL [facility]; [facility] Work Phone: MCV (RBC) [Entitic vol] 83.5 fL Normal 81 - 99 fL [facility]; [facility] Work Phone: Monocytes/100 WBC (Bld) 5.8 % Normal 0 - 10 [facility]; [facility] Work Phone: Neutrophils/100 WBC (Bld) 69.1 % Normal 47 - 70 [facility]; [facility] Work Phone: Nucleated RBC (Bld) [#/Vol] 0 10*3/uL Normal 0 - 5 [facility]; [facility] Work Phone: Platelet mean volume (Bld) [Entitic vol] 10.7 fL Normal 6.2 - 12.0 fL [facility]; [facility] Work Phone: Platelets (Bld) [#/Vol] 218 10*3/uL Normal 150 - 450 K/mm3 [facility]; [facility] Work Phone: RBC (Bld) [#/Vol] 4.30 10*6/uL Normal 4.2 - 5.4 {M/mm3} [facility].; [facility]. Work Phone: WBC (Bld) [#/Vol] 6.0 10*3/uL Normal 4.4 - 11.0 K/mm3 [facility].; [facility], [facility]. Work Phone: No Panel Informationon 05-01 Absolute Lymph 1.40 {X10_3/uL} Normal 0.83 - 4.5 1 {X10_3/uL} [facility].; [facility], [facility]. Work Phone: Absolute Neut 4.1 {X10_3/uL} Normal 2.0 - 7.7 {X10_3/uL} [facility].; [facility], [facility]. Work Phone: BARBITIURATES Negative Normal [facility]; [facility]. Work Phone: BENZODIAZIPINE Positive Abnormal [facility].; [facility]. Work Phone: BUN/CRE 7.3 {RATIO} Abnormal 10 - 20 {RATIO} [facility].; [facility], [facility]. Work Phone: DRUG CONFIRM Normal [facility].; [facility], [facility]. Work Phone: ECRCL 62.47 ml/min Normal [facility].; [facility]. Work Phone: ECSTACY Positive Abnormal [facility].; [facility] Work Phone: EST GFR - AA 71 mL/min Normal [facility].; [facility], [facility]. Work Phone: GAP 7 Normal 5 - 15 [facility] Work Phone: HCG, SERUM QUAL Negative Normal [facility] [employer]. Work Phone: IG% 0.200 Normal 0.0 - 0.9 [facility] [employer] [facility]. Work Phone: PCP Negative Normal [facility].; [facility]. Work Phone: RDW SD 46.6 fL Abnormal 35.1 - 43.9 fL [facility] [employer] [facility]. Work Phone: SERUM ETOH < 3.0 Normal [facility]. Work Phone: THC Negative Normal [facility] [employer] [facility]. Work Phone: VISTA UDS PH 5 Normal [facility] [employer] [facility]. Work Phone: B-HCG SerPl[facility] 4 HCG.beta subunit Qn m[IU]/mL Normal <5.0 [facility] Comment on above: Order Comment: Speci men Type: BLOOD SPECIMENOrdering Facility: [facility] Address: [address] [place] [address] Result Comment: Rhonda carbajal Performed By: #### 2 [id number] ####[facility] [id number] [place] [address] [place] CNOVon 04-15-2024 CNOV Office Visit (OBGYWM ) -------- YAMILET RIVAS ([id number]) 1985 F Date Time Provider Department 04/15/24 9:15 AM CHAVEZ ORDONEZ During your visit today, we recorded the following information about you: Blood pressure Weight 120/70 66.3 kg Chavez Ordonez APRN.CNP 04/15/2024 9:36 AM Signed Occupational Health Nurse Manager offered: Patient declines. Yamilet Rivas is a 38 year old female who presents for a follow up visit. HPI: Yamilet was here on 04/10/24 for continued vaginal pain and LS. She had a possible secondary outbreak so Valtrex 1 g twice daily was ordered. She had just finished 400 mg of Acyclovir TID for 10 days. She was also having a severe LS flare. Clobetasol BID to affected area was recommended. She reports today that she's feeling better, but not completely back to normal. Reports period is 15 days late. 2 negative tests at home. 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 Anxiety with depression 06/12/2015 ASCUS with positive high risk HPV cervical 2019 HSV-1 (herpes simplex virus 1) infection 03/2024 Lichen sclerosus 2019 Lupus anticoagulant disorder (HCC) 08/28/2019 Obesity 2000 s/p gastric sleeve 2018 affected by growth restriction 02/28/2019 PAST SURGICAL HISTORY Procedure Laterality Date COLPOSCOPY CERVIX UPPER/ADJACENT VAGINA 04/2019 x 2 COLPOSCOPY CERVIX UPPER/ADJACENT VAGINA 06/18/2019 FOOT SURGERY HX Right 03/2016 fusions,heel. Dr. Zhu, [facility] FOOT SURGERY HX Right 09/2014 [place] [facility] FOOT SURGERY HX Right 09/2015 hardware removal LAPS SURG CHOLECYSTECTOMY W/CHOLANGIOGRAPHY 04/15/2019 [facility] SLEEVE GASTRECTOMY; OPEN 04/2018 [place] FAMILY HISTORY Problem Relation Age of Onset Hypertension Mother Diabetes Maternal Grandmother Type II Stroke Maternal Grandmother Parkinsonism Maternal Grandmother Hypertension Maternal Grandmother Diabetes Maternal Grandfather Type II Blood Clots Maternal Grandfather Heart Maternal Grandfather Hypertension Maternal Grandfather Hypertension Paternal Grandmother COPD Paternal Grandmother Heart Paternal Grandfather A-fib Hypertension Paternal Grandfather No Known Problems Father No Known Problems Sister No Known Problems Brother Social History Tobacco Use Smoking status: Never Smokeless tobacco: Never Vaping Use Vaping status: Never Used Substance Use Topics Alcohol use: Not Currently Drug use: Never Current Outpatient Medications Medication Sig L. acidophilus/L. rhamnosus (FLORAJEN WOMEN ORAL) Take by mouth. LYSINE ORAL Take by mouth. tirzepatide (MOUNJARO) 10 mg/0.5 mL pen injector Inject 7.5 mg subcutaneously one time a week. valACYclovir (VALTREX) 1 gram tablet Take 1 tablet by mouth two times a day for 5 days. clobetasol (TEMOVATE) 0.05 % cream Apply to affected area two times a day. copper (PARAGARD T 380A) 380 square mm intrauterine device 1 Each by INTRAUTERINE route. FLUoxetine (PROZAC) 40 mg capsule Take 1 capsule by mouth every afternoon. ALPRAZolam (XANAX) 0.5 mg tablet Take 0.5 mg by mouth every 8 hours as needed. buPROPion SR (WELLBUTRIN SR) 150 mg 12 hr tablet Take 1 tablet by mouth twice daily. (Patient taking differently: Take 150 mg by mouth two times a day. Taking 1 150 and one 300 once daily) No current facility-administered medications for this visit. Allergies As of Date: 04/15/2024 (No Known Allergies) Fully Assessed 04/15/2024 REVIEW OF SYSTEMS Expanded ROS: MAMMOGRAPHER: Positive for vaginal pain/ LS flare Allergies and current medication updated:Yes SENSITIVE EXAM: The sensitive examination was discussed with the Patient or Patient's Authorized Basic Combatant Swimmer. As applicable, any other physician, advance practice provider, medical student, or other health professional student that will be observing or involved in the sensitive examination for educational or training purposes was discussed with the Patient or Authorized Basic Combatant Swimmer. The Patient or Authorized Basic Combatant Swimmer has agreed to proceed with the sensitive examination. (Sensitive examination includes inspection and/or palpation of the breasts, pelvis, prostate and anorectal regions). EXAM: BP 120/70 Wt 146 lb 3.2 oz (66.3kg) LMP 12/18/2019 GENERAL: pleasant, female in no apparent distress HEENT: Normocephalic, atraumatic, mucus membranes moist, and no lesions CHEST: Normal inspiratory effort PELVIC: normal Bartholin's glands, urethra, [place]'s glands,+ resolving lesions to zaid (more content not included)... Normal [facility] No Panel Informationon 04-15 B-HCG SerPl-aCnc <0.6 [facility] Work Phone: Performing Lab See Note [facility] Work Phone: CNOVon 04-10-2024 CNOV Office Visit (OBGYWM ) -------- YAMILET RIVAS ([id number]) 1985 F Date Time Provider Department 04/10/24 7:45 AM CHAVEZ ORDONEZ During your visit today, we recorded the following information about you: Blood pressure Weight 102/60 68.9 kg Chavez Ordonez APRN.BUNCH MAKER HAND 04/10/2024 10:31 AM Signed Yamilet Rivas is a 38 year old female who presents for problem visit of HSV continuation. HPI: Yamilet was seen on 03/25/24 and was diagnosed with HSV. She was also treated for BV with Flagyl. Finished taking 400 mg of Acyclovir TID for 10 days. She has a history of LS. She is feeling severe pain down to her anus, up to a 10/10. Reports that applying the lidocaine to this area feels like acid. 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 Anxiety with depression 06/12/2015 ASCUS with positive high risk HPV cervical 2018 HSV-1 (herpes simplex virus 1) infection 03/2024 Lichen sclerosus 2018 Lupus anticoagulant disorder (HCC) 08/28/2019 Obesity 2000 s/p gastric sleeve 2018 affected by growth restriction 02/28/2019 PAST SURGICAL HISTORY Procedure Laterality Date COLPOSCOPY CERVIX UPPER/ADJACENT VAGINA 04/2019 x 2 COLPOSCOPY CERVIX UPPER/ADJACENT VAGINA 06/18/2019 FOOT SURGERY HX Right 03/2016 fusions,heel. Dr. Zhu, [facility] FOOT SURGERY HX Right 09/2014 [facility] [place] [facility] FOOT SURGERY HX Right 09/2015 hardware removal LAPS SURG CHOLECYSTECTOMY W/CHOLANGIOGRAPHY 04/15/2019 [facility] SLEEVE GASTRECTOMY; OPEN 04/2018 [facility]ILY HISTORY Problem Relation Age of Onset Hypertension Mother Diabetes Maternal Grandmother Type II Stroke Maternal Grandmother Parkinsonism Maternal Grandmother Hypertension Maternal Grandmother Diabetes Maternal Grandfather Type II Blood Clots Maternal Grandfather Heart Maternal Grandfather Hypertension Maternal Grandfather Hypertension Paternal Grandmother COPD Paternal Grandmother Heart Paternal Grandfather A-fib Hypertension Paternal Grandfather No Known Problems Father No Known Problems Sister No Known Problems Brother Social History Tobacco Use Smoking status: Never Smokeless tobacco: Never Vaping Use Vaping status: Never Used Substance Use Topics Alcohol use: Not Currently Drug use: Never Current Outpatient Medications Medication Sig lidocaine (LMX) 4 % cream 1 application of small amount to affected area up to 7 times a day as needed for pain control. copper (PARAGARD T 380A) 380 square mm intrauterine device 1 Each by INTRAUTERINE route. FLUoxetine (PROZAC) 40 mg capsule Take 1 capsule by mouth every afternoon. ALPRAZolam (XANAX) 0.5 mg tablet Take 0.5 mg by mouth every 8 hours as needed. buPROPion SR (WELLBUTRIN SR) 150 mg 12 hr tablet Take 1 tablet by mouth twice daily. (Patient taking differently: Take 150 mg by mouth two times a day. Taking 1 150 and one 300 once daily) valACYclovir (VALTREX) 1 gram tablet Take 1 tablet by mouth two times a day for 5 days. clobetasol (TEMOVATE) 0.05 % cream Apply to affected area two times a day. No current facility-administered medications for this visit. Allergies As of Date: 04/10/2024 (No Known Allergies) Fully Assessed 03/25/2024 REVIEW OF SYSTEMS Expanded ROS: vulvar pain Allergies and current medication updated:Yes SENSITIVE EXAM: The sensitive examination was discussed with the Patient or Patient's Authorized Basic Combatant Swimmer. As applicable, any other physician, advance practice provider, medical student, or other health professional student that will be observing or involved in the sensitive examination for educational or training purposes was discussed with the Patient or Authorized Basic Combatant Swimmer. The Patient or Authorized Basic Combatant Swimmer has agreed to proceed with the sensitive examination. (Sensitive examination includes inspection and/or palpation of the breasts, pelvis, prostate and anorectal regions). EXAM: LMP 12/18/2019 GENERAL: pleasant, female in no apparent distress HEENT: Normocephalic, atraumatic, mucus membranes moist, and no lesions CHEST: Normal inspiratory effort PELVIC: external mild erythematous, normal Bartholin's glands, urethra, [place]'s glands, + severe inflammation and whitening of tissue from introitus down to skin surrounding anus bilaterally, severe weeping flat lesionsdeferred NEURO: alert and oriented x3,exam grossly non-focal EXTREMITIES: normal ASSESSMENT AND PLAN: 1. Herpes simplex infection of perianal skin (more content not included)... Normal [facility] Jj 03-29-2024 JANETHN Telephone (OBGYWM) -------- ROB ([id number]) 1985 F Date Time Provider Department 03/29/24 RPAKASH MARIE OBGYWM During your visit today, we recorded the following information about you: Jennifer Mann RN 03/29/2024 4:31 PM Signed Patient tearful on the phone. States that she can barely walk due to the discomfort of her HSV lesions. She's been taking the Acyclovir as directed. Her mom picked her up a lidocaine spray over the counter. Advised that lidocaine cream RX was sent to her pharmacy yesterday since they did not have the gel. Patient will call the pharmacy. Asking what else she can do for the pain because she could only work 3 hours today. Recommended trying ice and alternating NSAIDs and Tylenol. Do you have further recommendations? THEODORE Hutchinson Jennifer, MD 03/29/2024 4:53 PM Signed She can also soak in a bath tub with baking soda. Is she taking Ibuprofen scheduled? Does she also take the gabapentin TID as stated in her chart? It may help the nerve pain. Jennifer Mann RN 03/29/2024 5:00 PM Signed Called and spoke with patient. Notified of the below recommendations. The pharmacy has the prescription for the cream, but the pharmacy told her that she can purchase this over the counter. She has not been taking the Gabapentin. She no longer sees the physician who ordered it for her due to insurance. She has not been taking the Ibuprofen scheduled, so again encouraged that she do so. Jennifer Mann RN Allergies As of Date: 03/29/2024 (No Known Allergies) Date Reviewed: 03/25/2024 Reviewed by: Daisy Carroll MA - Fully Assessed Reason for Visit: Pain [78] Prescriptions as of 03/29/2024 - lidocaine (LMX) 4 % cream 1 application of small amount to affected area up to 7 times a day as needed for pain control. - metroNIDAZOLE (FLAGYL) 500 mg tablet Take 1 tablet by mouth two times a day for 7 days. - clobetasol (TEMOVATE) 0.05 % cream Apply to affected area two times a day. - copper (PARAGARD T 380A) 380 square mm intrauterine device 1 Each by INTRAUTERINE route. - acyclovir (ZOVIRAX) 400 mg tablet Take 1 tablet by mouth three times a day for 10 days. - propranolol (INDERAL) 10 mg tablet TAKE 1 TABLET BY MOUTH EVERY DAY IN THE MORNING .MAY REPEAT IN AFTERNOON IF NEEDED. - prazosin (MINIPRESS) 1 mg cap TAKE ONE CAPSULE BY MOUTH DAILY APPROXIMATELY ONE HOUR BEFORE BEDTIME. - gabapentin (NEURONTIN) 300 mg capsule Take 300 mg by mouth three times a day. - FLUoxetine (PROZAC) 40 mg capsule Take 1 capsule by mouth every afternoon. - losartan (COZAAR) 25 mg tablet Take 1 tablet by mouth every afternoon. - ALPRAZolam (XANAX) 0.5 mg tablet Take 0.5 mg by mouth every 8 hours as needed. - busPIRone (BUSPAR) 10 mg tablet Take 10 mg by mouth. - buPROPion SR (WELLBUTRIN SR) 150 mg 12 hr tablet Take 1 tablet by mouth twice daily. - ferrous sulfate 325 mg (65 mg iron) tablet Take 325 mg by mouth twice daily. Problem List As Of Date 03/29/2024 Noted Resolved Lichen sclerosus [L90.0] 2018 Anxiety with depression [F41.8] 06/12/2015 Lupus anticoagulant disorder (HCC) [D68.62] 08/28/2019 9 weeks gestation of [Z3A.09] 02/20/2020 Encounter Status:Closed by JENNIFER MANN on 03/29/24 [facility] J[facility] 03-26-2024 FRANCHESKA Telephone (OBGYWM) -------- ROBSEPTEMBER ([id number]) 1985 F Date Time Provider Department 03/26/24 MARIFER CABRERA During your visit today, we recorded the following information about you: Marifer Cabrera APRN.JANETH 03/26/2024 8:29 AM Signed BV positive. To treat with Flagyl 500mg PO BID for 7 days. 1) No alcohol during treatment and for 24 hours after last dose. 2) No intercourse during treatment. 3) Probiotic by mouth once daily for 30 days or as needed. Marifer Cabrera APRN.Angie Carter RN 03/26/2024 9:43 AM Signed Patient viewed [email or web address] message and aware of BV result. She called in asking what she can do for vaginal lesions. 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 She did start acyclovir and states the lidocaine gel mcconnell too bad for her to use. Lesions are very painful and barely able to move with them d/t the pain it causes. Asking if there is something else she can use to help with that. THEODORE Steward Renee, APRN.JANETH 03/26/2024 10:35 AM Signed No, unfortunately I don't have anything else for her to use. She can try ice to the area, the medication should start to help within in the next day or so. Marifer Cabrera APRN.Anika Cárdenas RN 03/26/2024 10:55 AM Signed Patient notified and voiced understanding. Anika Valenzuela RN Allergies As of Date: 03/26/2024 (No Known Allergies) Date Reviewed: 03/25/2024 Reviewed by: Daisy Carroll MA - Fully Assessed Reason for Visit: Results [95] Order(s):metroNIDAZOLE (FLAGYL) 500 mg tabletTake 1 tablet by mouth two times a day for 7 days.Disp: 14 tabletRfl: 0 Prescriptions as of 03/26/2024 - metroNIDAZOLE (FLAGYL) 500 mg tablet Take 1 tablet by mouth two times a day for 7 days. - clobetasol (TEMOVATE) 0.05 % cream Apply to affected area two times a day. - copper (PARAGARD T 380A) 380 square mm intrauterine device 1 Each by INTRAUTERINE route. - acyclovir (ZOVIRAX) 400 mg tablet Take 1 tablet by mouth three times a day for 10 days. - lidocaine 4 % gel 1 application of small amount to affected area up to 7 times a day as needed for pain control. - propranolol (INDERAL) 10 mg tablet TAKE 1 TABLET BY MOUTH EVERY DAY IN THE MORNING .MAY REPEAT IN AFTERNOON IF NEEDED. - prazosin (MINIPRESS) 1 mg cap TAKE ONE CAPSULE BY MOUTH DAILY APPROXIMATELY ONE HOUR BEFORE BEDTIME. - gabapentin (NEURONTIN) 300 mg capsule Take 300 mg by mouth three times a day. - FLUoxetine (PROZAC) 40 mg capsule Take 1 capsule by mouth every afternoon. - losartan (COZAAR) 25 mg tablet Take 1 tablet by mouth every afternoon. - ALPRAZolam (XANAX) 0.5 mg tablet Take 0.5 mg by mouth every 8 hours as needed. - busPIRone (BUSPAR) 10 mg tablet Take 10 mg by mouth. - buPROPion SR (WELLBUTRIN SR) 150 mg 12 hr tablet Take 1 tablet by mouth twice daily. - ferrous sulfate 325 mg (65 mg iron) tablet Take 325 mg by mouth twice daily. Problem List As Of Date 03/26/2024 Noted Resolved Lichen sclerosus [L90.0] 2018 Anxiety with depression [F41.8] 06/12/2015 Lupus anticoagulant disorder (HCC) [D68.62] 08/28/2019 9 weeks gestation of [Z3A.09] 02/20/2020 Prescriptions ordered this encounter Disp Refills Start End METRONIDAZOLE 500 MG TABLET 14 t* 0 03/26/2024 04/02/2024 Route: ORAL Sig: Take 1 tablet by mouth two times a day for 7 days. Encounter Status:Closed by ANIKA VALENZUELA on 03/26/24 Normal [facility] BACTERIAL VAGINOSIS NAATon 1 Lactobacillus crispatus+gasseri+ jensenii + Gardnerella vaginalis + Atopobium vaginae rRNA BRANT+probe Ql (Vag fld) Positive Abnormal Negative for bacterial vaginosis [facility] Comment on above: Order Comment: Speci men Type: SWABOrdering Facility: [facility] Address: [address] [place] [address] Performed By: #### C VTV, BVAMP ####[facility] [id number] [facility] [place] [address] [place] C. trachomatis+N. gonorrhoea e DNA BRANT+probe Ql (Unsp spec)on 03-25-2024 C. trachomatis rRNA BRANT+probe Ql (Unsp spec) Negative Normal Negative for Chlamydia trachomatis by amplificaton [facility] Comment on above: Order Comment: Speci men Type: SWABOrdering Facility: [facility] Address: [address] [place] [address] Performed By: #### 3 6902-5 ####[facility] [id number] [place] [address] [place] N. gonorrhoeae rRNA BRANT+probe Ql (Unsp spec) Negative Normal Negative for Neisseria gonorrhoeae by amplification [facility] Comment on above: Order Comment: Speci men Type: SWABOrdering Facility: [facility] Address: [address] [place] [address] Performed By: #### 3 6902-5 ####[facility] [id number] [place] [address] [place] ABDIAS/TRICHOMONAS NAATon 1 C. glabrata RNA BRANT+probe Ql (Vag fld) Negative Normal Negative for Abdias glabrata [facility] Comment on above: Order Comment: Speci men Type: SWABOrdering Facility: [facility] Address: [address] [place] [address] Performed By: #### C VTV, BVAMP ####[facility] [id number] [place] [address] [place] Abdias sp DNA BRANT+probe Ql (Vag fld) Negative Normal Negative for Abdias species [facility] Comment on above: Order Comment: Speci men Type: SWABOrdering Facility: [facility] Address: [address] [place] [address] Performed By: #### C VTV, BVAMP ####[facility] [id number] [place] [address] [place] T. vaginalis DNA BRANT+probe Ql (Unsp spec) Negative Normal Negative for Trichomonas vaginalis by amplification [facility] Comment on above: Order Comment: Speci men Type: SWABOrdering Facility: [facility] Address: [address] [place] [address] Performed By: #### C VTV, BVAMP ####[facility] [id number] [place] [address] [place] CNOVon 03-25-2024 CNOV Office Visit (OBGYWM ) -------- YAMILET RIVAS ([id number]) 1985 F Date Time Provider Department 03/25/24 2:40 PM PRAKASH MARIE OBGYWM During your visit today, we recorded the following information about you: Blood pressure Weight 112/80 68 kg Prakash Marie MD 03/25/2024 3:32 PM Signed Occupational Health Nurse Manager offered: Patient declines. Yamilet Rivas is a 38 year old female who presents for problem visit vaginal discharge, vulvar burning and pain. HPI: Having vaginal discharge, vulvar burning and pain. Noticed a few red vulvar lesions last night. Went into the ER yesterday the vulvar pain was so bad. Sexually active with partner of 5 years. No know STD exposure. Has copper IUD. No fevers, chills, abd pain, nausea, vomiting. 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 Anxiety with depression 06/12/2015 ASCUS with positive high risk HPV cervical 2019 Lichen sclerosus 2018 Lupus anticoagulant disorder (HCC) 08/28/2019 Obesity 2000 s/p gastric sleeve 2018 affected by growth restriction 02/28/2019 PAST SURGICAL HISTORY Procedure Laterality Date COLPOSCOPY CERVIX UPPER/ADJACENT VAGINA 04/2019 x 2 COLPOSCOPY CERVIX UPPER/ADJACENT VAGINA 06/18/2019 FOOT SURGERY HX Right 03/2016 fusions,heel. Dr. Zhu, [facility] FOOT SURGERY HX Right 09/2014 [facility] FOOT SURGERY HX Right 09/2015 hardware removal LAPS SURG CHOLECYSTECTOMY W/CHOLANGIOGRAPHY 04/15/2019 [facility] SLEEVE GASTRECTOMY; OPEN 04/2018 [facility] FAMILY HISTORY Problem Relation Age of Onset Hypertension Mother Diabetes Maternal Grandmother Type II Stroke Maternal Grandmother Parkinsonism Maternal Grandmother Hypertension Maternal Grandmother Diabetes Maternal Grandfather Type II Blood Clots Maternal Grandfather Heart Maternal Grandfather Hypertension Maternal Grandfather Hypertension Paternal Grandmother COPD Paternal Grandmother Heart Paternal Grandfather A-fib Hypertension Paternal Grandfather No Known Problems Father No Known Problems Sister No Known Problems Brother Social History Tobacco Use Smoking status: Never Smokeless tobacco: Never Vaping Use Vaping status: Never Used Substance Use Topics Alcohol use: Not Currently Drug use: Never Current Outpatient Medications Medication Sig clobetasol (TEMOVATE) 0.05 % cream Apply to affected area two times a day. propranolol (INDERAL) 10 mg tablet TAKE 1 TABLET BY MOUTH EVERY DAY IN THE MORNING .MAY REPEAT IN AFTERNOON IF NEEDED. prazosin (MINIPRESS) 1 mg cap TAKE ONE CAPSULE BY MOUTH DAILY APPROXIMATELY ONE HOUR BEFORE BEDTIME. gabapentin (NEURONTIN) 300 mg capsule Take 300 mg by mouth three times a day. FLUoxetine (PROZAC) 40 mg capsule Take 1 capsule by mouth every afternoon. ALPRAZolam (XANAX) 0.5 mg tablet Take 0.5 mg by mouth every 8 hours as needed. buPROPion SR (WELLBUTRIN SR) 150 mg 12 hr tablet Take 1 tablet by mouth twice daily. (Patient taking differently: Take 150 mg by mouth two times a day. Taking 1 150 and one 300 once daily) copper (PARAGARD T 380A) 380 square mm intrauterine device 1 Each by INTRAUTERINE route. acyclovir (ZOVIRAX) 400 mg tablet Take 1 tablet by mouth three times a day for 10 days. lidocaine 4 % gel 1 application of small amount to affected area up to 7 times a day as needed for pain control. losartan (COZAAR) 25 mg tablet Take 1 tablet by mouth every afternoon. (Patient not taking: Reported on 03/25/2024) busPIRone (BUSPAR) 10 mg tablet Take 10 mg by mouth. (Patient not taking: Reported on 03/25/2024) ferrous sulfate 325 mg (65 mg iron) tablet Take 325 mg by mouth twice daily. (Patient not taking: Reported on 03/25/2024) No current facility-administered medications for this visit. Allergies As of Date: 03/25/2024 (No Known Allergies) Fully Assessed 03/25/2024 REVIEW OF SYSTEMS Abdomen: No abdominal pain, nausea, vomiting, diarrhea, or constipation. Bladder: No dysuria, gross hematuria, urinary frequency, urinary urgency, or incontinence. Expanded ROS: N/A Allergies and current medication updated:Yes SENSITIVE EXAM: The sensitive examination was discussed with the Patient or Patient's Authorized Basic Combatant Swimmer. As applicable, any other physician, advance practice provider, medical student, or other health professional student that will be observing or involved in the sensitive examination for educational or training purposes was discussed with the Patient or Authorized Basic Combatant Swimmer. The Patie (more content not included)... Normal [facility] HBV surface Ag Ser Qlon 03-12 HBV surface Ag Ql (S) Negative Normal Negative [facility] Comment on above: Order Comment: Speci men Type: BLOOD SPECIMENOrdering Facility: [facility] Address: [address] [place] [address] Performed By: #### 5 195-3, 16683-2, 24047-2 ####[facility] [id number] [place] [address] [place] HCV Ab Ser Qlon 03-25-2024 HCV Ab Ql (S) Negative Normal Negative [facility] Comment on above: Order Comment: Speci jasen Type: BLOOD SPECIMENOrdering Facility: [facility] Address: [address] [place] [address] Result Comment: The result suggests no evidence of active infection with Hepatitis C virus. Should recent infection be suspected, repeat testing may be considered 4-6 weeks after this draw. Performed By: #### 1 6128-1 ####[facility] [id number] [place] [address] [place] HERPES SIMPLEX IGM, WITH REF RICKY IGG ABSon 03-25-2024 HSV IGG 1 QUALITATIVE Negative Normal [facility] Comment on above: Order Comment: Speci jasen Type: BLOOD SPECIMENOrdering Facility: [facility] Address: [address] [place] [address] Performed By: #### H SV ####[facility] [id number] [place] [address] [place] HSV IGG 2 QUALITATIVE Negative Normal [facility] Comment on above: Order Comment: Speci men Type: BLOOD SPECIMENOrdering Facility: [facility] Address: [address] [place] [address] Performed By: #### H SVGM ####[facility] [id number] [place] [address] [place] HSV IGM QUALITATIVE Positive Abnormal [facility] Comment on above: Order Comment: Speci men Type: BLOOD SPECIMENOrdering Facility: [facility] Address: [address] [place] [address] Performed By: #### H SVGM ####[facility] [id number] [place] [address] [place] HSV SEROLOGICAL INTERPRETATION Normal [facility] Comment on above: Order Comment: Speci men Type: BLOOD SPECIMENOrdering Facility: [facility] Address: [address] [place] [address] Result Comment: In t he presence of typical herpes simplex lesion(s), these results suggest primary HSV infection. HSV PCR is strongly recommended, if feasible. Otherwise, repeat serology using both HSV-1 IgG and HSV-2 IgG after 3-6 weeks is recommended. Performed By: #### H SVGM ####[facility] [id number] [place] [address] [place] HIV 1+2 Ab IA [facility] 4 HIV 1 and 2 Ab IA.rapid Nom (S/P/Bld) Normal [facility] Comment on above: Order Comment: Speci men Type: BLOOD SPECIMENOrdering Facility: [facility] Address: [address] [place] [address] Result Comment: Test not indicated. Performed By: #### 5 195-3, 01288-4, 64949-0 ####[facility] [id number] [place] [address] [place] HIV 1+2 Ab+HIV1 p24 Ag IA Ql Non-Reactive Normal Nonreactive [facility] Comment on above: Order Comment: Speci men Type: BLOOD SPECIMENOrdering Facility: [facility] Address: [address] [place] [address] Performed By: #### 5 195-3, 56255-2, 63840-3 ####[facility] [id number] [place] [address] [place] HIV immunoassay testing algorithm interpretation (S/P/Bld) [Interp] Normal [facility] Comment on above: Order Comment: Speci men Type: BLOOD SPECIMENOrdering Facility: [facility] Address: [address] [place] [address] Result Comment: No e vidence of HIV-1 or HIV-2 infection. Should recent infection be suspected, repeat testing may be considered 2-3 weeks after this draw. [place] Rev. Code 3701.243(E): This information has been disclosed to you from confidential records protected from disclosure by state law. ???You shall make no further disclosure of this information without the specific, written, and informed release of the individual to whom it pertains or as otherwise permitted by state law. A general authorization for the release of medical or other information is not sufficient for the purpose of the release of HIV test results or diagnoses. Performed By: #### 5 195-3, 91239-9, 36784-5 ####[facility] [id number] [place] [address] [place] HSV+VZV DNA BRANT+probe Ql (Un sp spec)on 03-25-2024 HSV 1 DNA BRANT+probe Ql (Unsp spec) Detected Abnormal Not Detected [facility] Comment on above: Order Comment: Speci men Type: SWABOrdering Facility: [facility] Address: [address] [place] [address] Performed By: #### 3 3027-4 ####[facility] [id number] [place] [address] [place] HSV 2 DNA BRANT+probe Ql (Unsp spec) Not detected Normal Not Detected [facility] Comment on above: Order Comment: Speci men Type: SWABOrdering Facility: [facility] Address: [address] [place] [address] Performed By: #### 3 3027-4 ####[facility] [id number] [address] [place] VZV DNA BRANT+probe Ql (Unsp spec) Not detected Normal Not Detected [facility] Comment on above: Order Comment: Speci men Type: SWABOrdering Facility: [facility] Address: [address] [place] [address] Performed By: #### 3 3027-4 ####[facility]CL[facility] [id number] [address] OF [place] No Panel Informationon 03-25 BV bacteria rRNA Vag Ql BRANT+probe Positive Abnormal [facility] [employer] Christian[employer]; myfab5 [facility] [employer]. Work Phone: C glabrata RNA Vag Ql BRANT+probe Negative [facility]. Work Phone: C trach rRNA Spec Ql BRANT+probe Negative Normal [facility].; [facility]. Work Phone: Abdias DNA Vag Ql BRANT+probe Negative Normal [facility].; [facility]. Work Phone: HBV surface Ag Ser Ql Negative Normal [facility] [employer].; TALMOON Tok3n [facility] [employer] [facility]. Work Phone: HCV Ab Ser Ql Negative [facility] [employer].; [facility] [employer]. Work Phone: HIV 1 AND 2 Ab SerPlBld IA.rapid Normal [facility] [employer]; Mobile Messenger [facility] [employer]. Work Phone: HIV 1+2 Ab+HIV1 p24 Ag SerPl Ql IA Non-Reactive Normal [facility]; [facility] Work Phone: HIV IA algorithm interp SerPlBld-Imp Normal [facility]; [facility] Work Phone: HSV SEROLOGICAL INTERPRETATION Normal [facility]; [facility] Work Phone: HSV1 DNA Spec Ql BRANT+probe Detected Abnormal [facility]; [facility] Work Phone: HSV2 DNA Spec Ql BRANT+probe Not detected Normal [facility]; [facility] Work Phone: N gonorrhoea rRNA Spec Ql BRANT+probe Negative Normal [facility]; [facility] Work Phone: Performing Lab See Note Normal [facility]; [facility] Work Phone: Reagin+T pallidum IgG+IgM SerPl-Imp See Note Normal [facility]; [facility] Work Phone: T pallidum IgG+IgM Ser Ql IA Non-Reactive Normal [facility]; [facility] Work Phone: T vaginalis DNA Spec Ql BRANT+probe Negative Normal [facility]; [facility] Work Phone: VZV DNA Spec Ql BRANT+probe Not detected Normal [facility]; [facility] Work Phone: Reagin and Treponema pallidu m IgG and IgM [Interp]on 03-25-2024 T. pallidum IgG+IgM IA Ql (S) Non-Reactive Normal Nonreactive [facility] Comment on above: Order Comment: Speci men Type: BLOOD SPECIMENOrdering Facility: [facility] Address: [address] [place] [address] Performed By: #### 5 195-3, 97562-5, 43634-0 ####[facility] [id number] [place] [address] [place] Reagin+T pallidum IgG+IgM Se rPl-Impon 03-25-2024 Reagin and Treponema pallidum IgG and IgM [Interp] Cannot exclude recent Treponemal infection if specimen collected within 7-10 days after appearance of suspect lesions or 2-3 weeks after an exposure. Clinical correlation is required. Normal [facility] Comment on above: Order Comment: Speci men Type: BLOOD SPECIMENOrdering Facility: [facility] Address: [address] [place] [address] Performed By: #### 5 195-3, 73352-2, 10042-6 ####[facility]CLIA [id number] [place] [address] [place] Laboratory - Chemistry and C hemistry - challengeon 03-24-2024 Magnesium [Mass/Vol] 5 mg/dL Abnormal [facility]uloPharmAssistant [facility].; Mobile Messenger [facility] [employer]. Work Phone: Magnesium [Mass/Vol] 30 mg/dL Abnormal [employer] [facility].; Mobile Messenger [facility]. Work Phone: Laboratory - Microbiology an d Antimicrobial susceptibilityon 03-24-2024 Bacteria identified Cx Nom (Unsp spec) 0 SEEN Normal [employer] [facility].; Mobile Messenger [facility]. Work Phone: Laboratory - Specimen inform ationon 03-24-2024 Clarity (U) Sl. Cloudy Normal [facility] AnguloPharmAssistant [facility].; Mobile Messenger [facility] [employer]. Work Phone: Color (U) Yellow Normal [facility].; [facility]. Work Phone: Laboratory - Urinalysison Mucus Ql (Urine sed) 0 SEEN Normal [facility].; [facility] Work Phone: Nitrite Ql (U) Negative Normal [facility].; [facility], [facility]. Work Phone: No Panel Informationon 03-24 BILIRUBIN URINE Negative Normal [facility].; [facility], [facility]. Work Phone: EPI,SQUAMOUS 0-5 SEEN Normal 5 - 10 {/hpf} [facility].; [facility], [facility]. Work Phone: GLUCOSE, UR Normal Normal [facility].; [facility], [facility]. Work Phone: LEUK ESTERASE 500 /ul Abnormal [facility].; [facility], [facility]. Work Phone: [phone] See Note Normal [facility].; [facility] Work Phone: OCCULT BLOOD-UR 25 /ul Abnormal [facility].; [facility], [facility]. Work Phone: pH UR 6.0 Normal 5.0 - 8.0 [facility].; [facility]. Work Phone: RBC 0 SEEN Normal 0 - 5 {/hpf} [facility].; [facility]. Work Phone: SP.GR. DIPSTX 1.020 Normal 1.002 - 1.030 [facility].; [facility]. Work Phone: UROBILI Normal Normal [facility]; [facility] Work Phone: WBC 50-100 SEEN Normal 0 - 5 {/hpf} [facility]; [facility] Work Phone: CNOVon 01-16-2024 CNOV Office Visit (UCWSTR ) -------- ROB,SEPTEMBER ([id number]) 1985 F Date Time Provider Department 01/16/24 11:00 AM DANNY CASTREJON [facility] During your visit today, we recorded the following information about you: Temperature Pulse Respiration Blood pressure 97.1 degrees 66/minute 16/minute 102/62 Weight 68.1 kg Danny Castrejon MD 01/16/2024 11:19 AM Signed Patient presents with: Eye Problem: right eyelid redness and swelling x 5-6 days HPI: Feeling right eyelid swelling for 5-6 days. It is worsening. This morning she noted more trouble reading with the right eye compared to the left. Positive symptoms: swelling upper eyelid, bumps inside the lower eyelid, blurred vision, Negative symptoms: OTC: OTC stye ointment. MEDICATIONS: Current Outpatient Medications Medication Sig propranolol (INDERAL) 10 mg tablet TAKE 1 TABLET BY MOUTH EVERY DAY IN THE MORNING .MAY REPEAT IN AFTERNOON IF NEEDED. prazosin (MINIPRESS) 1 mg cap TAKE ONE CAPSULE BY MOUTH DAILY APPROXIMATELY ONE HOUR BEFORE BEDTIME. gabapentin (NEURONTIN) 300 mg capsule Take 300 mg by mouth three times a day. FLUoxetine (PROZAC) 40 mg capsule Take 1 capsule by mouth every afternoon. losartan (COZAAR) 25 mg tablet Take 1 tablet by mouth every afternoon. ALPRAZolam (XANAX) 0.5 mg tablet Take 0.5 mg by mouth every 8 hours as needed. busPIRone (BUSPAR) 10 mg tablet Take 10 mg by mouth. buPROPion SR (WELLBUTRIN SR) 150 mg 12 hr tablet Take 1 tablet by mouth twice daily. (Patient taking differently: Take 150 mg by mouth two times a day. Taking 1 150 and one 300 once daily) ferrous sulfate 325 mg (65 mg iron) tablet Take 325 mg by mouth twice daily. No current facility-administered medications for this visit. ALLERGIES: ALLERGIES No Known Allergies VITALS: BP 102/62 Pulse 66 Temp 36.2 ?C (97.1 ?F) Resp 16 Wt 68.1 kg (150 lb 2.1 oz) LMP 12/18/2019 (Exact Date) SpO2 99% BMI 26.59 kg/m? PHYSICAL EXAM: GEN: Pleasant, in no acute distress. Accompanied by her active pre-school aged son HEENT: PERRL, EOMI, conjunctiva clear. Right upper eyelid is swollen and pink, no visible pustule at lash line or palpebral conjunctiva. Right lower lid has no erythema or edema, 1-2mm clear thin papules/pustules mid inner lower lid. Sinuses: non-tender frontal sinus, non-tender maxillary sinuses Throat: moist mucous membranes, Neck: supple, ASSESSMENT/PLAN: 1. Hordeolum externum right upper eyelid - ICD9: 373.11, ICD10: H00.011 (primary diagnosis) - POLYMYXIN B SULFATE 10,000 UNIT-TRIMETHOPRIM 1 MG/ML EYE DROPS 2. Hordeolum internum right lower eyelid - ICD9: 373.12, ICD10: H00.022 Continue warm compress. She may schedule follow up with ophtho/optometry when leaving. Danny Castrejon MD Allergies As of Date: 01/16/2024 (No Known Allergies) Date Reviewed: 01/16/2024 Reviewed by: Agnes Pedroza MA - Fully Assessed Reason for Visit: Eye Problem [43] Cmt: right eyelid redness and swelling x 5-6 days Primary Visit Diagnosis:Hordeolum externum right upper eyelid [H00.011] Other Visit Diagnosis:Hordeolum internum right lower eyelid [H00.022] Order(s):trimethoprim-po lymyxin (POLYTRIM) 10,000 unit- 1 mg/mL ophthalmic solutionUse 2 Drops in both eyes every 6 hours for 7 days.Disp: 10 mLRfl: 0 Prescriptions as of 01/16/2024 - propranolol (INDERAL) 10 mg tablet TAKE 1 TABLET BY MOUTH EVERY DAY IN THE MORNING .MAY REPEAT IN AFTERNOON IF NEEDED. - prazosin (MINIPRESS) 1 mg cap TAKE ONE CAPSULE BY MOUTH DAILY APPROXIMATELY ONE HOUR BEFORE BEDTIME. - gabapentin (NEURONTIN) 300 mg capsule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 [facility],[address] [place] [address] Potassium [Moles/Vol] 4.3 mmol/L Normal 3.5 - 5.1 [facility] Comment on above: Performed By: #### 2 88990 #### [facility],[address] [place], [place] [phone] Sodium [Moles/Vol] 134 mmol/L Low 136 - 145 [facility] Comment on above: Performed By: #### 2 51170 #### [facility],[address] [place] [address] Urea nitrogen [Mass/Vol] 12 mg/dL Normal 6 - 20 [facility] Comment on above: Performed By: #### 2 18302 #### [facility],[address] [place] [address] Progress Noteon 02-28-2019 [employer] Authentication Interface Message Text DOS: 02/28/2019 [facility] MATERNAL- MEDICINE CONSULT Referring/Requesting Provider: Lisa Fong, * CHIEF COMPLAINT: HISTORY OF PRESENT ILLNESS: Yamilet is a 33 y.o. female at 36w1d who presents for ultrasound and consultation regarding suspected IUGR. OB HISTORY: OB History Para Term AB Living 1 0 SAB TAB Ectopic Multiple Live Births # Outcome Date GA Lbr Jerel/2nd Weight Sex Delivery Anes PTL Lv 1 Current PAST MEDICAL HISTORY: Past Medical History: Diagnosis Date Anxiety with depression Gallstones History of chronic hypertension prior to weight loss from gastric sleeve Lichen sclerosus Obesity Vaginal Pap smear, abnormal 07/2018 PAST SURGICAL HISTORY: Past Surgical History: Procedure Laterality Date COLPOSCOPY 07/2018 FOOT FUSION FOOT SURGERY removal of hardware SLEEVE GASTROPLASTY 04/2018 done in [place] PERTINENT FAMILY HISTORY: Family History Problem Relation Age of Onset High Blood Pressure Mother Anxiety Disorder Mother Labor Mother Labor Sister Diabetes Mellitus II Maternal Grandmother High Blood Pressure Maternal Grandmother Parkinson's Disease Maternal Grandmother Scoliosis Maternal Grandmother Stroke Maternal Grandmother DVT Maternal Grandfather Diabetes Mellitus II Maternal Grandfather Heart Attack Maternal Grandfather High Blood Pressure Maternal Grandfather Atrial Fibrillation Paternal Grandmother High Blood Pressure Paternal Grandmother Atrial Fibrillation Paternal Grandfather High Blood Pressure Paternal Grandfather High Blood Pressure Maternal Aunt High Blood Pressure Maternal Uncle High Blood Pressure Paternal Aunt Miscarriages / Stillbirths Paternal Aunt Labor Paternal Aunt 24 wk twins Diabetes Mellitus I Other maternal 1st cousin MEDS: Fluoxetine, Zantac, ALLERGY: No Known Allergies REVIEW OF SYSTEMS: A comprehensive review of systems was negative. PHYSICAL EXAM: VITAL SIGNS: BP 128/88 Ht 160 cm Wt 99.3 kg (218 lb 14.4 oz) LMP 06/20/2018 BMI 38.78 kg/m General Appearance: Alert, appropriate appearance for age. No acute distress Abd: gravid, nontender during US. IMAGING: Please see ultrasound report for full details. 1. Single, living IUP at 36w0d. 2. biometry is consistent with IUGR, EFW 2255 gm, at the 10%ile for stated gestational age. AC lag noted. 3. Umbilical artery Dopplers were normal. 4. BPP 01/17 5. anatomy was as visualized. 6. Amniotic fluid appeared normal. 7. Placenta is anterior without evidence of previa. 8. UA Dopplers are normal. IMPRESSION: Yamilet is a 33 y.o. female at 36w1d. growth is at 10th %ile on Saurav's growth curve, with AC lag note. This is suggestive of developing IUGR, thus I agree with increasing monitoring and surveillance until delivery. Normal anatomic evaluation. BPP is normal. RECOMMENDATIONS: Continue daily kick counts. Twice weekly NST and once a week BPP with UA Dopplers. - BPP with UA Dopplers can be schedule in our [place] office for her convenience (Mondays). Delivery recommended at 38w0d to 38w6d, reserving CS for usual OB indications. - I explained that delivery may be moved up for either or maternal indications, if they should arise. All Yamilet and her mother's questions were answered prior to their departure today. Thank you for allowing us to participate in your patient's care. Please call if you have any questions. I spent 30 min face to face with her today, with >50% time in counseling/coordination of care. Normal [facility] HPVon 12-26-2017 HPV Interp Invalid Interpretation Code See Interp HPVN [facility] ([place] Comment on above: Order Comment: Order placed by AP_HPV_REFLEX rule from [id number] Result Comment: High Risk HPV Typing Positive: HPV Type 16 and additionalhigh risk types detected (other than HPV Type 18)Specimen is positive for HPV type 16 DNA and the DNA of any one of, or combination of the following high risk HPV types: 31, 33, 35, 39, 45, 51, 52, 56, 58, 59, 66, 68.HPV type 18 DNA was undetectable or below the pre-set threshold.The luis High-Risk HPV DNA Test is not intended for use as a screening device for Pap normal women under age 30 and is not intended to substitute for regular Pap screening.The luis High-Risk HPV DNA Test is designed to augment existing methods for the detection of cervical disease and should be used in conjunction with clinical information derived from other diagnostic and screening tests, physical examinations and full medical history in accordance with appropriate patient management procedures.NOTE: A negative result does not preclude the presence of HPV infection because results depend on adequate specimen collection, absence of inhibitors and sufficient DNA to be detected.See Interp HPOS Performed By: #### H PV ####[place] [address] HPV Source Cervix Normal [facility] Comment on above: Order Comment: Order placed by AP_HPV_REFLEX rule from [id number] Performed By: #### H PV ####[place] [address] [facility] Reporton 2017 [facility] Report . Pathology ReportsAccession: Collected Date/Time: Received Date/Time: Pathologist:[id number] 12/14/2017 11:28 EDT 2017 18:00 EDT DO DANTE CARVALHO [facility] ReportSPECIMEN:Specimen Description: Liquid Prep Reflex ASCUSSpecimen: EndocervicalScreening or Diagnostic: ScreeningRELEVANT HISTORY:LMP: 12/04/[id number] N ADEQUACY:SATISFACTORY FOR EVALUATIONENDOCERVICAL/T RANSFORMATIONAL ZONE COMPONENT PRESENTINTERPRETATION/RE SULTS:ATYPICAL SQUAMOUS CELLS OF UNDETERMINED SIGNIFICANCEADJUNCTIVE TESTING:HIGH RISK HPV DNA TESTING ORDERED, REPORT TO FOLLOW UNDER SEPARATE COVERElectronically Signed byPathology report verified by [facility] Healthcreened by: GL MESElectronically signed by DANTE CARVALHO DOSign-Out Date: 12/22/2017 11:48Performing Lab: [facility], [address] [place] [address] [facility] HospitalDisclaimerThe Pap test is a screening test for cervical cancer. As evidenced by published data, it is subject to both inherent false negative and false positive results. Your patient's results should be interpreted in context with pertinent clinical history including gynecological examination. Normal [facility] Comment on above: Performed By: #### G YCR ####[facility] [place] [address] Vital Signs Date Time Vital Sign Value Performing Clinician Ayanna cantu 04-15-2024 09:10-0500 Body mass index (BMI) [Ratio] 25.9 kg/m2 Chavez Hadebra [employer] Work Phone: [facility] 04-15-2024 09:10-0500 Body weight 66.32 kg Chavez Haury [employer] Work Phone: [facility] 04-15-2024 09:10-0500 Diastolic blood pressure 70 mm[Hg] Chavez Haury [employer] Work Phone: [facility] 04-15-2024 09:10-0500 Systolic blood pressure 120 mm[Hg] Chavez Haury [employer]ER[employer] Work Phone: [facility] 04-10-2024 11:31-0400 Body mass index (BMI) [Ratio] 26.93 kg/m2 Chavez Haury [employer]ER[employer] Work Phone: [facility] 04-10-2024 11:31-0400 Body weight 68.95 kg Chavez Haury [employer]ER[employer] Work Phone: [facility] 04-10-2024 11:31-0400 Diastolic blood pressure 60 mm[Hg] Chavez Haury [employer]ER[employer] Work Phone: [facility] 04-10-2024 11:31-0400 Systolic blood pressure 102 mm[Hg] Chavez Haury [employer] Work Phone: [facility] 03-25-2024 14:45-0400 Body mass index (BMI) [Ratio] 26.57 kg/m2 Prakash Marie MD Work Phone: [facility] 03-25-2024 14:45-0400 Body weight 68.04 kg Prakash Marie MD Work Phone: [facility] 03-25-2024 14:45-0400 Diastolic blood pressure 80 mm[Hg] Prakash Marie MD Work Phone: [facility] 03-25-2024 14:45-0400 Systolic blood pressure 112 mm[Hg] Prakash Marie MD Work Phone: [facility] 01-16-2024 11:02-0400 Body mass index (BMI) [Ratio] 26.59 kg/m2 Danny Castrejon MD Work Phone: [facility] 01-16-2024 11:02-0400 Body temperature 97.11 [degF] Danny Castrejon MD Work Phone: [facility] 01-16-2024 11:02-0400 Body weight 68.1 kg Danny Castrejon MD Work Phone: [facility] 01-16-2024 11:02-0400 Diastolic blood pressure 62 mm[Hg] Danny Castrejon MD Work Phone: [facility] 01-16-2024 11:02-0400 Heart rate 66 /min Danny Castrejon MD Work Phone: [facility] 01-16-2024 11:02-0400 Respiratory rate 16 /min Danny Castrejon MD Work Phone: [facility] 01-16-2024 11:02-0400 SaO2% (BldA) [Mass fraction] 99 % Danny Castrejon MD Work Phone: [facility] 01-16-2024 11:02-0400 Systolic blood pressure 102 mm[Hg] Danny Castrejon MD Work Phone: [facility] 11-09-2023 10:24-0400 Body height 158.75 cm Kamron TRIPLETT MD Work Phone: [facility].; [employer] [facility] [facility] [employer] [facility] 11-09-2023 10:24-0400 Body mass index (BMI) [Ratio] 27.72 kg/m2 Kamron TRIPLETT MD Work Phone: [facility]; [employer] [facility] [employer] [facility] 11-09-2023 10:24-0400 Body surface area Derived from formula 1.72 m2 Kamron TRIPLETT MD Work Phone: [facility]; [employer] [facility] [employer] [facility] 11-09-2023 10:24-0400 Body temperature 98.1 [degF] Kamron TRIPLETT MD Work Phone: [facility] [employer] [facility]; [employer] [facility] Angulo [employer] Comment on above: Method: Oral 11-09-2023 10:24-0400 Body weight 69.85 kg Kamron TRIPLETT MD Work Phone: [facility] [employer] [facility]; [employer] [facility] [employer] 11-09-2023 10:24-0400 Diastolic blood pressure 85 mm[Hg] Kamron TRIPLETT MD Work Phone: [facility] [employer] [facility]; [employer] [facility] [employer] [facility]My[facility]Pal. Comment on above: Patient Position: Sitting; Cuff Location : Left Arm; Cuff Size: Standard 11-09-2023 10:24-0400 Heart rate 73 /min Kamron TRIPLETT MD Work Phone: [facility] [employer] [facility]; [employer] [facility] [employer] Comment on above: Pattern: Regular 11-09-2023 10:24-0400 Systolic blood pressure 128 mm[Hg] Kamron TRIPLETT MD Work Phone: [facility]arm[facility]; [employer] [facility] [employer] Comment on above: Patient Position: Sitting; Cuff Location : Left Arm; Cuff Size: Standard 08-10-2023 16:24-0500 Body temperature 97.5 [degF] Carolina Harrington EXPEDITER.C MECHANICAL DESIGN TECHNICIAN Work Phone: [facility] 08-10-2023 16:24-0500 Body weight 75.48 kg Carolina Harrington EXPEDITER.C MECHANICAL DESIGN TECHNICIAN Work Phone: [facility] 08-10-2023 16:24-0500 Diastolic blood pressure 90 mm[Hg] Carolina Harrington EXPEDITER.BUNCH MAKER [employer] Work Phone: [facility] 08-10-2023 16:24-0500 Heart rate 80 /min Carolina Harrington EXPEDITER.C MECHANICAL DESIGN TECHNICIAN Work Phone: [facility] 08-10-2023 16:24-0500 Respiratory rate 18 /min Carolina Harrington EXPEDITER.C MECHANICAL DESIGN TECHNICIAN Work Phone: [facility] 08-10-2023 16:24-0500 SaO2% (BldA) [Mass fraction] 98 % Carolina Harrington EXPEDITER.BUNCH MAKER HAND Work Phone: [facility] 08-10-2023 16:24-0500 Systolic blood pressure 131 mm[Hg] Carolina Harrington EXPEDITER.BUNCH MAKER HAND Work Phone: [facility] 01-27-2023 09:45-0400 Body height 158.75 cm JAKE HYATT MD Work Phone: [facility] [employer] [facility]; [employer] [facility] [employer] [facility]. 01-27-2023 09:45-0400 Body mass index (BMI) [Ratio] 33.48 kg/m2 JAKE HYATT MD Work Phone: [facility] [employer] [facility]; [employer] [facility] [employer] [facility] 01-27-2023 09:45-0400 Body surface area Derived from formula 1.86 m2 JAKE HYATT MD Work Phone: [facility]PharmAss[facility] Christian[facility]areMyFitnessPal.; [employer] [facility] [employer] [facility] 01-27-2023 09:45-0400 Body weight 84.37 kg JAKE HYATT MD Work Phone: [facility] [employer] [facility]MyFitnessPal.; [employer] [facility] [employer] [facility]. 01-27-2023 09:45-0400 Diastolic blood pressure 85 mm[Hg] JAKE HYATT MD Work Phone: [facility] [employer] [facility]Pal.; [employer] [facility] [employer] [facility]. Comment on above: Patient Position: Sitting; Cuff Location : Left Arm; Cuff Size: Standard 01-27-2023 09:45-0400 Heart rate 69 /min JAKE HYATT MD Work Phone: [facility] [employer] [facility]Pal.; [employer] [facility] [employer] [facility]. Comment on above: Pattern: Regular 01-27-2023 09:45-0400 Systolic blood pressure 139 mm[Hg] JAKE HYATT MD Work Phone: [facility] [employer] [facility]Pal.; [employer] [facility] Bevalley. Comment on above: Patient Position: Sitting; Cuff Location : Left Arm; Cuff Size: Standard 05-26-2022 10:52-0500 Body height 158.75 cm Cecille Rodriguez RN [facility], Night [facility].; [facility] [employer] Christian[facility]areDNA[facility]. 05-26-2022 10:52-0500 Body mass index (BMI) [Ratio] 33.84 kg/m2 Cecille Rodriguez RN [facility] [employer] [facility], [facility].; [facility] [employer] [facility]. 05-26-2022 10:52-0500 Body surface area Derived from formula 1.87 m2 Cecille Rodriguez RN [facility] [employer] [facility], [facility].; [facility] [employer] [facility]. 05-26-2022 10:52-0500 Body weight 85.28 kg Cecille Rodriguez RN [facility] [employer] [facility], [facility].; [employer] [facility] [employer] [facility]Pal. 05-26-2022 10:52-0500 Diastolic blood pressure 107 mm[Hg] Cecille Rodriguez RN [facility] [employer] [facility], [facility].; [employer] [facility] [employer] [facility]. Comment on above: Patient Position: Sitting; Cuff Location : Right Arm; Cuff Size: Large 05-26-2022 10:52-0500 Heart rate 74 /min Cecille Rodriguez RN [facility].; [facility] [employer] [facility], Night [facility]. Comment on above: Pattern: Regular 05-26-2022 10:52-0500 Systolic blood pressure 162 mm[Hg] Cecille Rodriguez RN [facility], Inc.; [employer] [facility] [employer] [facility], Inc. Comment on above: Patient Position: Sitting; Cuff Location : Right Arm; Cuff Size: Large 12-09-2021 15:05-0400 Body height 158.75 cm Temitope Fu RN [facility], Inc.; [facility], Inc. 12-09-2021 15:05-0400 Body mass index (BMI) [Ratio] 32.04 kg/m2 Temitope Fu RN [facility], Inc.; [facility], Inc. 12-09-2021 15:05-0400 Body surface area Derived from formula 1.83 m2 Temitope Fu RN [facility], Inc.; [employer] [facility], Inc. 12-09-2021 15:05-0400 Body weight 80.74 kg Temitope Fu RN [facility], Night Out.; [facility], Inc. 12-09-2021 15:05-0400 Diastolic blood pressure 96 mm[Hg] Temitope Fu RN [facility] [employer] [facility], Inc.; [employer] [facility] [employer] [facility], Inc. Comment on above: Patient Position: Sitting; Cuff Location : Left Arm; Cuff Size: Large 12-09-2021 15:05-0400 Heart rate 64 /min Temitope Fu RN [employer] [facility] [employer] [facility], Inc.; [employer] [facility] [employer] [facility], Inc. Comment on above: Pattern: Regular 12-09-2021 15:05-0400 Systolic blood pressure 138 mm[Hg] Temitope Fu RN [facility] [employer] [facility], Inc.; [employer] [facility] [employer] [facility], Inc. Comment on above: Patient Position: Sitting; Cuff Location : Left Arm; Cuff Size: Large 04-14-2021 10:52-0400 Body temperature 97.3 [degF] Phoebe Fish DO Work Phone: [facility] Work Phone: 04-14-2021 10:52-0400 Diastolic blood pressure 94 mm[Hg] Phoebe Fish DO Work Phone: [facility] Work Phone: 04-14-2021 10:52-0400 Heart rate 62 /min Phoebe Fish DO Work Phone: [facility] Work Phone: 04-14-2021 10:52-0400 Respiratory rate 16 /min Phoebe Fish DO Work Phone: [facility] Work Phone: 04-14-2021 10:52-0400 Systolic blood pressure 141 mm[Hg] Phoebe Fish DO Work Phone: [facility] Work Phone: 04-14-2021 09:57-0400 Body mass index (BMI) [Ratio] 31.71 kg/m2 Phoebe Fish DO Work Phone: [facility] Work Phone: 04-14-2021 09:57-0400 Body weight 81.19 kg Phoebe Fish DO Work Phone: [facility] Work Phone: 04-01-2021 10:11-0400 Body temperature 98.2 [degF] Phoebe Fish DO Work Phone: [facility] Work Phone: 04-01-2021 10:11-0400 Diastolic blood pressure 82 mm[Hg] Phoebe Fish DO Work Phone: [facility] Work Phone: 04-01-2021 10:11-0400 Heart rate 58 /min Phoebe Fish DO Work Phone: [facility] Work Phone: 04-01-2021 10:11-0400 Respiratory rate 18 /min Phoebe Fish DO Work Phone: [facility] Work Phone: 04-01-2021 10:11-0400 Systolic blood pressure 127 mm[Hg] Phoebe Fish DO Work Phone: [facility] Work Phone: 04-01-2021 09:20-0400 Body height 160 cm Phoebe Fish DO Work Phone: [facility] Work Phone: 04-01-2021 09:20-0400 Body mass index (BMI) [Ratio] 32.36 kg/m2 Phoebe Fish DO Work Phone: [employer] Work Phone: 04-01-2021 09:20-0400 Body weight 82.87 kg Phoebe Fish DO Work Phone: [facility] Work Phone: 06-01-2017 11:08-0500 Body height 158.75 cm Temitope Fu RN [employer] ChristianacareMyFitnessPal.; [facility] [employer] [facility]DNA[facility]. 06-01-2017 11:08-0500 Body mass index (BMI) [Ratio] 54.18 kg/m2 Temitope Fu RN [facility] Angulo [employer] Christian[facility]MyFitnessPal.; [facility] [employer] Christian[facility]areDNAdigest [facility]. 06-01-2017 11:08-0500 Body surface area Derived from formula 2.29 m2 Temitope Fu RN [facility] Angulo [employer].; [facility] Angulo [employer] [facility]MyF[facility]Pal. 06-01-2017 11:08-0500 Body temperature 97.9 [degF] Temitope Fu RN [facility] [employer] Christian[facility]MyFitnessPal.; [facility] [employer] [facility]. Comment on above: Method: Oral 06-01-2017 11:08-0500 Body weight 136.53 kg Temitope Fu RN [facility] Nilda [employer] Christian[facility]MyF[facility]Pal.; [facility] [employer] [facility], Inc. 06-01-2017 11:08-0500 Diastolic blood pressure 97 mm[Hg] Temitope Fu RN [facility] [employer] Christian[facility]MyFitnessPal.; [facility] [employer] [facility], Inc. Comment on above: Patient Position: Sitting; Cuff Location : Left Arm; Cuff Size: Large 06-01-2017 11:08-0500 Heart rate 84 /min Temitope Fu RN [facility] [employer] [facility] [employer] [facility]Pal.; [facility] [employer] [facility], Inc. Comment on above: Pattern: Regular 06-01-2017 11:08-0500 Systolic blood pressure 147 mm[Hg] Temitope Fu RN [facility] [employer] ChristianacareDNAdigest Inc.; [facility] [employer] [facility], Inc. Comment on above: Patient Position: Sitting; Cuff Location : Left Arm; Cuff Size: Large 11-16-2016 15:49-0400 Body height 158.75 cm [facility] [employer] [facility], Inc.; [facility] [employer] [facility], Inc. 11-16-2016 15:49-0400 Body mass index (BMI) [Ratio] 49.68 kg/m2 [facility] [employer] Christian[facility]MyFitnessPal.; [facility] [employer] [facility], Inc. 11-16-2016 15:49-0400 Body surface area Derived from formula 2.2 m2 [facility] [employer] [facility]My[facility]Pal.; [facility] [employer] [facility], Inc. 11-16-2016 15:49-0400 Body weight 125.19 kg [facility] [employer] ChristianacareDNAdigest Inc.; [facility] [employer] [facility], Inc. 11-16-2016 15:49-0400 Diastolic blood pressure 100 mm[Hg] [facility] [employer] ChristianacareDNAdigest Inc.; [facility] [employer] [facility], Inc. Comment on above: Patient Position: Sitting; Cuff Location : Left Arm; Cuff Size: Standard 11-16-2016 15:49-0400 Heart rate 62 /min [facility] [employer] ChristianacareDNAdigest Inc.; [facility] [facility] [employer] [facility], Inc. Comment on above: Pattern: Regular 11-16-2016 15:49-0400 Systolic blood pressure 147 mm[Hg] [facility] [employer] Care, Inc.; ROBB DOT[employer] [facility], Inc. Comment on above: Patient Position: Sitting; Cuff Location : Left Arm; Cuff Size: Standard 05-12-2016 13:17-0500 Diastolic blood pressure 111 mm[Hg] Temitope Fu RN [facility], Inc.; [facility] [employer] [facility], Inc. Comment on above: Patient Position: Sitting; Cuff Location : Left Arm; Cuff Size: Large 05-12-2016 13:17-0500 Heart rate 81 /min Temitope Fu RN [facility] Inc.; [facility] [employer] [facility], Inc. Comment on above: Pattern: Regular 05-12-2016 13:17-0500 Systolic blood pressure 152 mm[Hg] Temitope Fu RN [facility] [employer] Christian[facility]areMyFitnessPal.; [facility] [employer] [facility], Inc. Comment on above: Patient Position: Sitting; Cuff Location : Left Arm; Cuff Size: Large 03-07-2016 15:04-0400 Body height 158.75 cm Temitope Fu RN [facility], Inc.; [facility], Inc. 03-07-2016 15:04-0400 Body mass index (BMI) [Ratio] 54.36 kg/m2 Temitope Fu RN [facility].; [facility], Inc. 03-07-2016 15:04-0400 Body surface area Derived from formula 2.29 m2 Temitope Fu RN [facility] [employer] [facility], Inc.; [facility], Inc. 03-07-2016 15:04-0400 Body weight 136.99 kg Temitope Fu RN [employer] [facility], [facility].; [facility] [employer] [facility], Inc. 03-07-2016 15:04-0400 Diastolic blood pressure 114 mm[Hg] Temitope Fu RN [facility] [employer] Christian[facility]MyFitnessPal.; [facility] [employer] [facility], Inc. Comment on above: Patient Position: Sitting; Cuff Location : Left Arm; Cuff Size: Large 03-07-2016 15:04-0400 Heart rate 112 /min Temitope Fu RN [facility] PharmAssistant [employer].; [email or web address] [facility]MyFitnessPal. Comment on above: Pattern: Regular 03-07-2016 15:04-0400 Systolic blood pressure 164 mm[Hg] Temitope Fu RN [facility] [employer] ChristianacareMyFitnessPal.; Mobile Messenger [facility] Angulo [employer] [facility]MyF[facility]Pal. Comment on above: Patient Position: Sitting; Cuff Location : Left Arm; Cuff Size: Large 09-24-2015 14:35-0400 Body height 160.02 cm Cecille Rodriguez RN [facility] [employer] ChristianacareMyFitnessPal.; [employer] [facility] [employer] [facility], Inc. 09-24-2015 14:35-0400 Body mass index (BMI) [Ratio] 50.31 kg/m2 Cecille Rodriguez RN [facility] [employer] Christian[facility]MyFitnessPal.; [employer] [facility] [employer] Christian[facility]areMyFitnessPal. 09-24-2015 14:35-0400 Body surface area Derived from formula 2.24 m2 Cecille Rodriguez RN [facility] [employer] [facility], Night [facility].; [employer] [facility] [employer] ChristianacareMyFitnessPal. 09-24-2015 14:35-0400 Body weight 128.82 kg Cecille Rodriguez RN [facility] [employer] Christian[facility]areMyFitnessPal.; [employer] [facility] Angulo [employer] Christian[facility]MyFitnessPal. 09-24-2015 14:35-0400 Diastolic blood pressure 101 mm[Hg] Cecille Rodriguez RN [facility] [employer] Christian[facility]areMyFitnessPal.; [employer] [facility] Angulo [employer] [facility]MyFitnessPal. Comment on above: Patient Position: Sitting; Cuff Location : Right Arm; Cuff Size: Large 09-24-2015 14:35-0400 Heart rate 93 /min Cecille Rodriguez RN [facility] [employer] ChristianacareMyFitnessPal.; [employer] [facility] Angulo [employer] [facility]MyFitnessPal. Comment on above: Pattern: Regular 09-24-2015 14:35-0400 Systolic blood pressure 157 mm[Hg] Cecille Rodriguez RN [facility] [employer] ChristianacareMyFitnessPal.; Mobile Messenger [facility] Angulo [employer]. Comment on above: Patient Position: Sitting; Cuff Location : Right Arm; Cuff Size: Large 03-30-2015 16:35-0400 Body height 160.66 cm JAKE HYATT MD Work Phone: [facility]rieNewlight Technologies.; Mobile Messenger [facility] [employer]. 03-30-2015 16:35-0400 Body mass index (BMI) [Ratio] 32.86 kg/m2 JAKE HYATT MD Work Phone: [employer] AnguloPharmAssistant ChristianacareMyFitnessPal.; [employer]. 03-30-2015 16:35-0400 Body surface area Derived from formula 1.88 m2 JAKE HYATT MD Work Phone: [facility] [employer] [facility]MyFitnessPal.; [employer]. 03-30-2015 16:35-0400 Body weight 84.82 kg JAKE HYATT MD Work Phone: [employer].; [employer] [facility] [employer] 08-29-2014 14:48-0400 Body height 160.02 cm Shari Francis RN [facility] [employer] ChristianacareMyFitnessPal.; [employer] [facility] Angulo [employer] [facility], Inc. 08-29-2014 14:48-0400 Body mass index (BMI) [Ratio] 49.95 kg/m2 Shari Francis RN [facility] [employer] [facility], Inc.; [employer] [facility] [facility] [employer] 08-29-2014 14:48-0400 Body surface area Derived from formula 2.24 m2 Shari Francis RN [facility] [employer] [facility], Night [employer].; [employer] [facility], [employer] 08-29-2014 14:48-0400 Body temperature 98.4 [degF] Shari Francis RN [facility] [employer] [facility], Inc.; [employer]. Comment on above: Method: Oral 08-29-2014 14:48-0400 Body weight 127.92 kg Shari Francis RN [facility] [employer] ChristianacareDNAdigest Inc.; [employer] [facility], [employer] 08-29-2014 14:48-0400 Diastolic blood pressure 95 mm[Hg] Shari Francis RN [facility] Angulo [employer] ChristianacareMyFitnessPal.; [employer], Night Out. Comment on above: Patient Position: Sitting; Cuff Location : Left Arm; Cuff Size: Standard 08-29-2014 14:48-0400 Heart rate 111 /min Shari Francis RN [facility]PharmAss[facility], Inc.; [employer]. Comment on above: Pattern: Regular 08-29-2014 14:48-0400 Systolic blood pressure 147 mm[Hg] Shari Francis RN [facility]riePharmAssistant ChristianacareMyFitnessPal.; Mobile Messenger [facility] [employer] Christian[facility]MyFitnessPal. Comment on above: Patient Position: Sitting; Cuff Location : Left Arm; Cuff Size: Standard 07-09-2014 14:05-0500 Body height 160.02 cm JAKE HYATT MD Work Phone: [facility]riePharmAssistant ChristianacareMyFitnessPal.; Mobile Messenger [facility] [employer] Christian[facility]MyFitnessPal. 07-09-2014 14:05-0500 Body mass index (BMI) [Ratio] 48.54 kg/m2 JAKE HYATT MD Work Phone: [facility]rieNew[facility] [employer].; [employer] [facility] [employer] ChristianacareMyFitnessPal. 07-09-2014 14:05-0500 Body surface area Derived from formula 2.21 m2 JAKE HYATT MD Work Phone: [facility]rie[facility].; Mobile Messenger [facility] [employer]. 07-09-2014 14:05-0500 Body temperature 98.1 [degF] JAKE HYATT MD Work Phone: [facility].; Mobile Messenger [facility] [employer]. Comment on above: Method: Oral 07-09-2014 14:05-0500 Body weight 124.29 kg JAKE HYATT MD Work Phone: [facility]riePharmAssistant ChristianacareMyFitnessPal.; Mobile Messenger [facility] [employer]. 07-09-2014 14:05-0500 Diastolic blood pressure 104 mm[Hg] JAKE HYATT MD Work Phone: [employer].; Mobile Messenger [facility] [employer]. Comment on above: Patient Position: Sitting; Cuff Location : Left Arm; Cuff Size: Standard 07-09-2014 14:05-0500 Heart rate 99 /min JAKE HYATT MD Work Phone: [facility]rie[facility].; Mobile Messenger [facility] [employer]. Comment on above: Pattern: Regular 07-09-2014 14:05-0500 Respiratory rate 16 /min JAKE HYATT MD Work [facility]; [facility] Comment on above: Pattern: Unlabored 07-09-2014 14:05-0500 Systolic blood pressure 159 mm[Hg] JAKE HYATT MD Work Phone: [facility]; [facility] Comment on above: Patient Position: Sitting; Cuff Location : Left Arm; Cuff Size: Standard Encounters Encounter Date Encounter Type Care Provider Facility Start: 05-02-2024 Review JAKE Earl [facility] Start: 04-15-2024 End: 04-15-2024 [facility] Facility:[facility] Start: 04-15-2024 End: 04-15-2024 Patient encounter procedure Chavez Ordonez APRN.BUNCH MAKER HAND Work Phone: OB/Gynecology Comment on above: 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); Lichen sclerosus; Late period Start: 04-10-2024 End: 04-10-2024 ambulatory [facility] Facility:[facility] Start: 04-10-2024 End: 04-10-2024 Patient encounter procedure Chavez Ordonez APRN.[employer]CH MAK[employer] Work Phone: OB/Gynecology Comment on above: 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); Lichen sclerosus Start: 04-05-2024 End: 04-05-2024 Refill Prakash Marie MD Work Phone: OB/Gynecology Comment on above: Refill Request Start: 03-29-2024 End: 03-29-2024 Telephone encounter Prakash Marie MD Work Phone: OB/Gynecology Comment on above: Pain Start: 03-28-2024 End: 03-28-2024 Refill Prakash Marie MD Work Phone: OB/Gynecology Comment on above: Refill Request Start: 03-26-2024 End: 03-26-2024 Telephone encounter Marifer Cabrera APRN.[employer] Work Phone: OB/Gynecology Comment on above: Results Start: 03-25-2024 End: 03-25-2024 ambulatory [facility] Facility:[facility] Start: 03-25-2024 End: 03-25-2024 Patient encounter procedure Prakash Marie MD Work Phone: OB/Gynecology Comment on above: Vulvar lesion (Prima ry Dx); Screen for STD (sexually transmitted disease); Vaginal discharge; Vulvar pain Start: 02-27-2024 End: 02-27-2024 Medication Refill/Order JAKE HYATT MD Work Phone: [employer] Start: 01-16-2024 End: 01-16-2024 ambulatory JAKE HYATT Facility:[facility] Start: 01-16-2024 End: 01-16-2024 Patient encounter procedure Danny Castrejon MD Work Phone: [facility] Comment on above: Hordeolum externum r ight upper eyelid (Primary Dx); Hordeolum internum right lower eyelid Start: 11-09-2023 Review JAKE Earl Work Phone: [employer] [place] [employer] Start: 11-09-2023 End: 11-09-2023 Office outpatient visit 15 minutes JAKE HYATT MD Work Phone: [employer] Start: 09-15-2023 End: 09-15-2023 Medication Refill/Order JAKE HYATT MD Work Phone: [employer] Start: 08-10-2023 End: 08-10-2023 ambulatory [facility] Facility:[facility] Start: 08-10-2023 End: 08-10-2023 Patient encounter procedure Carolina Harrington APRN.B[employer]CH MAK[employer] Work Phone: [facility] Comment on above: URI, acute (Primary Dx); Strep throat exposure Start: 07-03-2023 End: 07-03-2023 Medication Refill/Order JAKE HYATT MD Work Phone: [facility]. Start: 05-30-2023 End: 05-30-2023 Medication Refill/Order JAKE HYATT MD Work Phone: [facility] Start: 05-22-2023 End: 05-22-2023 Medication Refill/Order JAKE HYATT MD Work Phone: [facility]. Start: 05-01-2023 End: 05-01-2023 Medication Refill/Order JAKE HYATT MD Work Phone: [facility]. Start: 03-06-2023 End: 03-06-2023 Medication Refill/Order JAKE HYATT MD Work Phone: [facility]. Start: 02-02-2023 End: 02-02-2023 Medication Refill/Order JAKE HYATT MD Work Phone: [facility] Start: 02-02-2023 End: 02-02-2023 Medication Refill/Order JAKE HYATT MD Work Phone: [facility] [employer] [facility] Start: 01-27-2023 End: 01-27-2023 Office outpatient visit 15 minutes JAKE HYATT MD Work Phone: [facility] [employer] [facility]. Start: 12-29-2022 End: 12-29-2022 Medication Refill/Order JAKE HYATT MD Work Phone: [facility] [employer] Start: 12-28-2022 End: 12-29-2022 Medication Refill/Order JAKE HYATT MD Work Phone: [facility] Start: 10-02-2022 Refill Jo Annjoey Rosen Nader anne PA-C Work Phone: [facility] Start: 09-23-2022 End: 09-23-2022 Medication Refill/Order JAKE HYATT MD Work Phone: [facility]. Start: 08-08-2022 End: 08-08-2022 Medication Refill/Order JAKE HYATT MD Work Phone: [facility]. Start: 06-09-2022 End: 06-09-2022 Medication Refill/Order JAKE HYATT MD Work Phone: [employer] [facility] [employer] Start: 05-26-2022 End: 05-26-2022 Historical Summary JAKE HYATT MD Work Phone: [facility] [employer] Start: 05-26-2022 End: 05-26-2022 Office outpatient visit 15 minutes JAKE HYATT MD Work Phone: [email or web address] Start: 04-07-2022 End: 04-07-2022 Medication Refill/Order JAKE HYATT MD Work Phone: [employer] [facility] [employer] Start: 01-06-2022 End: 01-06-2022 Medication Refill/Order JAKE HYATT MD Work Phone: [email or web address] Start: 12-09-2021 End: 12-09-2021 Office outpatient visit 15 minutes JAKE HYATT MD Work Phone: [email or web address]. Start: 04-14-2021 End: 04-14-2021 Subsequent hospital visit by physician Phoebe Whitten DO Work Phone: [facility] Comment on above: Iron deficiency anem ia due to dietary causes (Primary Dx); Malabsorption of iron Start: 04-01-2021 End: 04-01-2021 Subsequent hospital visit by physician Phoebe Whitten DO Work Phone: [facility] Comment on above: Iron deficiency anem ia due to dietary causes (Primary Dx); Malabsorption of iron Start: 03-24-2021 End: 03-24-2021 Subsequent hospital visit by physician Phoebe Whitten DO Work Phone: [facility] Start: 08-26-2019 End: 08-26-2019 Patient encounter procedure SAURAV LEONE [facility] Start: 08-23-2019 End: 08-23-2019 Patient encounter procedure ABHI MCNEIL VENICE [facility] Start: 06-01-2017 End: 06-01-2017 Office outpatient visit 15 minutes JAKE HYATT MD Work Phone: [email or web address]. Start: 11-16-2016 End: 11-16-2016 Office outpatient visit 15 minutes JAKE HYATT MD Work Phone: [facility] [employer] Start: 05-12-2016 End: 05-12-2016 Office outpatient visit 15 minutes JAKE HYATT MD Work Phone: [email or web address] Start: 03-15-2016 End: 03-15-2016 Historical Summary JAKE HYATT MD Work Phone: [email or web address]. Start: 03-07-2016 End: 03-07-2016 Office outpatient visit 15 minutes JAKE HYATT MD Work Phone: [email or web address]. Start: 10-03-2015 End: 10-03-2015 Medication Refill/Order JAKE HYATT MD Work Phone: [email or web address]. Start: 09-24-2015 End: 09-24-2015 Periodic preventive med est patient 18-39 yrs JAKE HYATT MD [facility] Start: 09-24-2015 End: 09-24-2015 Preprocedural examination done JAKE HYATT MD Work Phone: [facility] [employer]; [employer] [facility] [employer] Start: 03-30-2015 End: 03-30-2015 Office outpatient visit 15 minutes JAKE HYATT MD Work Phone: [facility] [employer] Start: 08-29-2014 End: 08-29-2014 Office outpatient visit 40 minutes JAKE HYATT MD Work Phone: [facility] [employer] Start: 08-29-2014 End: 08-29-2014 Preprocedural examination done JAKE HYATT MD Work Phone: [facility]; [employer] [facility] [employer] Start: 07-09-2014 End: 07-09-2014 Office outpatient visit 15 minutes JAKE HYATT MD Work Phone: [employer] [facility] [employer] [facility] Procedures Date Procedure Procedure Detail Performing Clinician Start: 11-09-2023 End: 11-09-2023 Dischrg meds reconciled w/current med list Kamron TRIPLETT MD Work Phone: Start: 11-09-2023 End: 11-09-2023 Collj & interpj physiol data min 30 min ea 30 d Kamron TRIPLETT MD Work Phone: Start: 08-10-2023 STREP A MOLECULAR (POC) [facility] Provider Start: 05-30-2023 End: 05-30-2023 Collj & interpj physiol data min 30 min ea 30 d Lina Plascencia RN Start: 03-06-2023 End: 03-06-2023 Collj & interpj physiol data min 30 min ea 30 d JAKE HYATT MD Work Phone: Start: 01-27-2023 End: 01-27-2023 Dischrg meds reconciled w/current med list JAKE HYATT MD Work Phone: Start: 09-23-2022 End: 09-23-2022 Collj & interpj physiol data min 30 min ea 30 d JAKE HYATT MD Work Phone: Start: 05-26-2022 End: 05-26-2022 Dischrg meds reconciled w/current med list JAKE HYATT MD Work Phone: Start: 05-26-2022 End: 05-26-2022 Collj & interpj physiol data min 30 min ea 30 d JAKE HYATT MD Work Phone: Start: 04-07-2022 End: 04-07-2022 Collj & interpj physiol data min 30 min ea 30 d JAKE HYATT MD Work Phone: Start: 12-09-2021 End: 12-09-2021 Collj & interpj physiol data min 30 min ea 30 d JAKE HYATT MD Work Phone: Start: 02-04-2021 Follow-up visit Start: 06-01-2017 End: 06-01-2017 Collj & interpj physiol data min 30 min ea 30 d JAKE HYATT MD Work Phone: Start: 11-16-2016 End: 11-16-2016 Collj & interpj physiol data min 30 min ea 30 d JAKE HYATT MD Work Phone: Start: 05-12-2016 End: 05-12-2016 Collj & interpj physiol data min 30 min ea 30 d JAKE HYATT MD Work Phone: Start: 08-29-2014 End: 08-29-2014 Usman HYATT MD Work Phone: hardware removal R f oot 4-3-16 Temitope Fu RN hardware removal R f oot 4-3-16 JAKE HYATT MD Work Phone: plastic surgery JAKE HYATT MD Work Phone: Comment on above: jun 2021 plastic surgery JAKE HYATT MD Work Phone: Comment on above: jun 2021 subtalar joint fusio n 4-3-15 Temitope Fu RN subtalar joint fusio n 4-3-15 JAKE HYATT MD Work Phone: talovavicular fusion R heel realignment 03-17-16 Temitope Fu RN talovavicular fusion R heel realignment 03-17-16 JAKE HYATT MD Work Phone: weight loss surgery Temitope puga RN weight loss surgery JAKE HYATT MD Work Phone: Plan of Treatment Date Care Activity Detail Author Start: 2034 Zoster Vaccines (1 of 2) Zoste r Vaccines (1 of 2) [employer] Start: 03-31-2026 Screening for malign ant neoplasm of cervix [facility] Start: 08-29-2024 Urine microalbumin profile DTaP,Tdap,Td Vaccine (2 - Td or Tdap) [facility] Start: 05-06-2024 End: 05-06-2024 Patient encounter procedure 05/06/2024 7:15 AM EST Office Visit OB/Gynecology [address] [place] [address] Chavez Ordonez APRN.[employer] [address] [place] [address] Annual visit OB/Gynecology Comment on above: Annual visit Start: 05-02-2024 Medical; ESTABLISHED PATIENT ROUTINE VISIT - anxiety-med refill Medical; ESTABLISHED PATIENT ROUTINE VISIT - anxiety-med refill [facility]. Start: 02-May-2024 15:45-05:00 MD JAKE HYATT Appointment Request [facility]. Start: 04-15-2024 End: 07-15-2024 Choriogonadotropin.beta subunit [Units/volume] in Serum or Plasma [facility] Work Phone: Comment on above: Expected: 04/15/2024 , Expires: 07/15/2024 Start: 03-31-2024 Screening for malign ant neoplasm of cervix Cervical Cancer Screening [facility] Start: 03-25-2024 End: 06-24-2024 Hepatitis B virus surface Ag [Presence] in Serum [facility] Comment on above: Expected: 03/25/2024 , Expires: 06/24/2024 Start: 03-25-2024 End: 06-24-2024 Hepatitis C virus Ab [Presence] in Serum [facility] Comment on above: Expected: 03/25/2024 , Expires: 06/24/2024 Start: 03-25-2024 End: 06-24-2024 HERPES SIMPLEX IGM, WITH REFLEX IGG ABS [facility] Comment on above: Expected: 03/25/2024 , Expires: 06/24/2024 Start: 03-25-2024 End: 06-24-2024 HIV 1+2 Ab [Presence] in Serum or Plasma by Immunoassay [facility] Work Phone: Comment on above: Expected: 03/25/2024 , Expires: 06/24/2024 Start: 03-25-2024 End: 06-24-2024 SYPHILIS TREPONEMAL W/REFLEX [facility] Comment on above: Expected: 03/25/2024 , Expires: 06/24/2024 Start: 02-11-2024 Covid-19 Vaccine ( season) Covid-19 Vaccine () [facility] Start: 02-11-2024 Influenza vaccination Influenza Vacc ine (#1) [facility] Start: 11-24-2023 FQHC visit, estab pt Medical; ESTABLISHED PATIENT ROUTINE VISIT - per dr triplett [facility] Start: 24-Nov-2023 10:15-04:00 MD JAKE HYATT Appointment [facility] Start: 09-19-2023 Patient encounter procedure Medical; [facility] - [facility] Start: 19-Sep-2023 10:15-04:00 MD JAKE HYATT Appointment Request [facility] [employer] [facility]. Start: 09-15-2023 Collj & interpj phys iol data min 30 min ea 30 d QUERY OARRS REPORT ([id number]) Start: 15-Sep-2023 [facility].; [facility]. Start: 08-10-2023 End: 08-24-2023 COVID & INFLUENZA A/B & RSV NAAT, ROUTINE [facility] Work Phone: Comment on above: Expected: 08/10/2023 , Expires: 08/24/2023 Start: 02-10-2023 Covid-19 Vaccine () Covid-19 Vaccine () [facility] Start: 02-10-[address] [facility] Start: 12-29-2022 End: 12-29-2022 Collj & interpj physiol data min 30 min ea 30 d QUERY OARRS REPORT ([id number]) Date: 29-Dec-2022 [facility]My[facility].; [facility] Start: 07-20-2021 COVID-19 Vaccine (3 - Booster for Pfizer series) COVID-19 Vaccine (3 - Booster for Pfizer series) [facility] Start: 05-12-2021 End: 05-12-2021 Patient encounter procedure 05/12/2021 Office Visit Hematology and Oncology Phoebe Whitten DO [address] [facility] [address] [place] [address] [phone] [facility] Start: 05-10-2021 End: 05-10-2021 Patient encounter procedure 05/10/2021 Office Visit Family Medicine Jenni Echeverria MD [address] [place] [address] [address] [place], [place] [id number] [facility] Start: 04-14-2021 End: 04-14-2021 Patient encounter procedure 04/14/2021 Appointment Infusion Therapy [facility] Start: 04-07-2021 End: 04-07-2021 Patient encounter procedure 04/07/2021 Office Visit Family Medicine Jenni Echeverria MD [address] [place] [address] [phone] [facility] Start: 02-10-2021 Influenza vaccination Flu vaccine (# 1) [facility] Work Phone: Start: 03-30-2015 Patient Education SORE THROAT Indication: Acute pharyngitis, unspecified etiology Start: 30-Mar-2015 Instruction Type: Patient Education [facility] Start: 2014 Screening for malign ant neoplasm of cervix [facility] Start: 2005 Screening for malign ant neoplasm of cervix Pap smear [facility] Start: 12-16-2003 DTaP/Tdap/Td vaccine (1 - Tdap) DTaP/Tdap/Td vaccine (1 - Tdap) [facility] Work Phone: Start: 12-16-2003 DTaP/Tdap/Td Vaccine s (1 - Tdap) DTaP/Tdap/Td Vaccines (1 - Tdap) [facility] Start: 12-16-2003 Hepatitis B Vaccine (1 of 3 - 19+ 3-dose series) Hepatitis B Vaccine (1 of 3 - 19+ 3-dose series) [facility] Start: 12-16-2003 Urine microalbumin profile DTaP,Tdap,Td Vaccine (1 - Tdap) [facility] Start: 2002 Hepatitis C screening Hepatitis C Sc reening [facility] Start: 12-16-1999 HIV screening HIV screen [facility] Work Phone: Start: 1996 COVID-19 Vaccine (1) COVID-19 Vaccin e (1) [facility] Work Phone: Start: 1985 MMR Vaccines (1 of 1 - Standard series) MMR Vaccines (1 of 1 - Standard series) [facility] Start: 1985 Varicella vaccination Varicell a Vaccines (1 of 2 - 2-dose childhood series) [facility] Start: 1985 Varicella vaccine (1 of 2 - 2-dose childhood series) Varicella vaccine (1 of 2 - 2-dose childhood series) [facility] Work Phone: Start: 1984 Hepatitis B Vaccine (1 of 3 - 3-dose series) Hepatitis B Vaccine (1 of 3 - 3-dose series) [facility] Start: 1984 Hepatitis B Vaccines (1 of 3 - 3-dose series) Hepatitis B Vaccines (1 of 3 - 3-dose series) [facility] Start: 1984 Hepatitis C screening Hepatitis C sc reen [facility] Work Phone: Start: 1984 HIV screening HIV Screening [facility] BACTERIAL VAGINOSIS NAAT BACTERI AL VAGINOSIS NAAT Lab Routine Vaginal discharge 03/25/2024 3:34 PM EDT [facility] ABDIAS/TRICHOMONAS NAAT ABDIAS /TRICHOMONAS NAAT Lab Routine Vaginal discharge 03/25/2024 3:34 PM EDT [facility] Chlamydia trachomatis+Neisseria gonorrhoeae DNA [Presence] in Unspecified specimen by BRANT with probe detection GONORRHEA/CHLAMYDIA NAAT Lab Routine Vaginal discharge Vulvar pain 03/25/2024 4:09 PM EDT [facility] Herpes simplex virus+Varicella zoster virus DNA [Presence] in Unspecified specimen by BRANT with probe detection HSV1,2/VZV NAAT LESION Lab Routine Vulvar lesion Screen for STD (sexually transmitted disease) 03/25/2024 3:34 PM EDT [facility] Immunizations Immunization Date Immunization Notes Care Provider [facility] 05-25-2021 Pfizer SARS-CoV-2 Vaccination Terri Head PA-C Work Phone: [facility] 05-03-2021 Pfizer SARS-CoV-2 Vaccination Terri Head PA-C Work Phone: [facility] 04-07-2021 influenza, injectabl e, quadrivalent, preservative free Phoebe Fish DO Work Phone: [facility] Work Phone: 04-07-2021 influenza virus vaccine, unspecified formulation Terri Head PA-C Work Phone: [facility] 09-08-2020 influenza virus vaccine, unspecified formulation Phoebe Fish DO Work Phone: [facility] 09-08-2020 influenza, seasonal, injectable, preservative free Carolina Jenni ARRIAGA Work Phone: [facility] 08-29-2014 tetanus toxoid, redu chance diphtheria toxoid, and acellular pertussis vaccine, adsorbed JAKE HYATT MD Work Phone: [facility] Comment on above: Site: Deltoid (Left) 08-29-2014 *IMMUNIZATION ADMIN ([id number]) JAKE HYATT MD Work Phone: [facility] Work Phone: Payers Date Payer Category Payer Medicaid [id number] 07-13-2022 Private Health Insurance [id number] 02-10-2021 Private Health Insurance [facility] PLAN [id number] 02/10/2021-Present [phone] [address] [place] [address] [id number] 01-10-2021 Unknown BCBS [place] P PO [id number] 01/10/2021-Present [address] [place] [address] [id number] 1984 Unknown [id number] 1984 Unknown [id number] Unknown [id number] Unknown [facility] Date Type Detail Facility Start: 03-24-2021 End: 08-10-2023 Tobacco smoking status CAIS Never smoker [facility] [employer] Start: 03-24-2021 End: 08-10-2023 Tobacco use and exposure Never used [facility] Start: 03-24-2021 Alcohol intake Current drinke r of alcohol (finding) [employer] Work Phone: Start: 03-10-2021 History SDOH Education 13 [employer] Work Phone: Start: 03-10-2021 History SDOH Financial 5 [employer] Work Phone: Start: 03-10-2021 History SDOH Food Worry 1 [facility] Work Phone: Start: 03-10-2021 History SDOH Transpo rt Med 2 [facility] Work Phone: Start: 03-10-2021 Alcohol Comment rare [facility] Work Phone: Start: 1985 Sex Assigned At Not on file [facility] Work Phone: Start: 04-07-2021 End: 04-15-2024 Alcohol intake Ex-drinker (finding) [employer] Work Phone: Alcohol Use: Alcohol Use: ; Y es for Alcohol Use. [facility] [employer]; [facility] [employer] [facility] Start: 08-10-2023 End: 04-10-2024 Current Work/Study Status Current Work/Study Status [facility] [employer]; [facility] [employer] [facility] Highest Education Le medardo Attained: Highest Education Level Attained: ; High school graduate. [facility] [employer]; [facility] [facility] Marital status: Marital status: ; . [facility] [employer]; [facility] [employer] [facility] Tobacco use: Tobacco use: ; N ever smoker. [facility] [employer]; [facility] [employer]. Start: 1985 Female [facility] Single [facility]; [facility] [employer] [facility] Work Phone: High school graduate [facility] [employer]; [facility] Work Phone: Michel Angulo [facility]. Work Phone: Start: 08-10-2023 End: 04-10-2024 Tobacco use panel [facility] Adult Depression Screening Assessment 4 [facility] Start: 09-20-2020 Gender identity Identifies as female gender (finding) [facility] Start: 09-20-2020 Sexual orientation Heterosexual (rancho dunham) [facility] Clinical Notes 04-01-2021 to 04-15-2024 Addendum Note - Chavez Ordonez APRN.CNP - 04/15/2024 10:09 AM ESTAddendum Note - Chavez Ordonez APRN.CNP - 04/15/2024 10:09 AM ESTPatient InstructionsChavez Ordonez APRN.CNP - 04/15/2024 9:00 AM EST Note Date & Type Note Facility 04-15-2024 Note Addended by: CHAVEZ ORDONEZ on: 04/15/2024 10:09 AM Modules accepted: Orders [facility] 04-15-2024 Miscellaneous Notes Addended by: CHAVEZ ORDONEZ on: 04/15/2024 10:09 AM Modules accepted: Orders documented in this encounter [facility] 04-15-2024 Instructions Chavez Ordonez APRN.CNP - 04/15/2024 9:34 AM EST [facility] PATIENT INFO WHAT IS GENITAL HERPES? Genital herpes is a common sexually transmitted disease that is caused by the herpes simplex virus. It is estimated that at least one in five adults in the [place] is infected with the virus, but many people have no symptoms and do not realize that they are infected. After getting infected, most people have recurrent episodes of genital ulcers for several years. Although the infection can stay in the body for years, symptom outbreaks become less and less common over time. The infection can be managed with medication and self-care measures. People who have genital herpes are encouraged to talk to their sexual partner, use condoms, and take other preventive measures to prevent transmission (passing the virus to others). Genital herpes can be spread even when there are no visible ulcers or blisters. Being diagnosed with genital herpes can be an emotional and distressing experience, and it is important to speak with your healthcare provider about how to manage symptoms and avoid passing the virus to sexual partners. Counseling and support groups can also be beneficial to individuals living with genital herpes infection. GENITAL HERPES CAUSE Genital herpes is caused by infection with the herpes simplex virus (HSV, usually type 2). It can also be caused by herpes simplex virus type 1, which is usually the cause of oral herpes (cold sores on the mouth and lips). GENITAL HERPES SYMPTOMS The symptoms of genital herpes can vary widely, depending upon whether you are having an initial or recurrent episode. However, many people infected with genital herpes never experience symptoms. Initial episode -- For most people, the first herpes outbreak is the most severe, and symptoms tend to be more severe in women than men. The first outbreak usually occurs within a few weeks after infection with the virus. Symptoms tend to resolve within two to three weeks. The signs of an initial (or primary) episode of genital herpes include multiple blisters in the genital area. For women, the sites most frequently involved include the vagina, vulva, buttocks, anus, and thighs; for men, the penis, scrotum, anus, buttocks and thighs may be affected. Signs and symptoms typically include blisters that become painful ulcers. Blisters on the penis or outer labia may crust over and heal. New lesions may develop for up to five to seven days after the first group appears. There may also be tender, swollen lymph nodes in the groin, flu-like symptoms, such as joint pain, fever, and headache, and it may be painful to urinate. A small percentage of people can develop headache, nausea and vomiting, or difficulty urinating. These symptoms occur when the herpes infection affects the nervous system. People who have pain when they try to defecate may have proctitis (inflammation of the rectum or anus). Men who have sex with men are more prone to this complication than other patients. Latent stage -- After the initial outbreak, the virus travels to a bundle of nerves at the base of the spine, where it remains inactive for a period of time. This is called the latent stage. There are no symptoms during this stage. Recurrent episodes -- Many people experience recurrent episodes of genital herpes, which occur when the virus travels through nerves to the skin's surface, causing an outbreak of ulcers. These recurrent episodes tend to be milder than the initial outbreak. Ulcers may develop in the same area as those of the first outbreak, or may appear in other areas. It is possible to develop lesions in areas where there was no direct contact; for example, it is possible to have lesions around the anus without having had anal sex. Likelihood of recurrence -- Genital herpes recurs frequently in many patients, especially in those with HSV type 2. Over time, recurrences generally become less frequent and less severe. However, it is also possible to have a recurrence a few years after the initial HSV infection was acquired. This type of delayed herpes outbreak can be especially distressing if you never had symptoms during the initial infection, leading you to worry about the sexual activities of your past or present sexual partner(s). Prodrome -- As many as 50 percent of people with a recurrent outbreak experience mild symptoms before ulcers develop. These are called prodromal symptoms, and may include itching, tingling, or pain in the buttocks, legs, or hips. Recurrences tend to become less frequent and less severe after the first year. Triggers for recurrence -- Illness, stress, sunlight, and fatigue can trigger recurrent herpes outbreaks. In women, menstrual periods may trigger an outbreak. When did I become infected? -- The first time a person has noticeable signs or symptoms of herpes may not be the initial episode. For example, it is possible to be infected for the first time, have few or no symptoms, and then have a recurrent outbreak with noticeable symptoms several years later. For this reason, it is often difficult to determine when the initial infection occurred, especially if a person has had more than one sexual partner. Thus, a current sexual partner may not be the source of the infection. GENITAL HERPES DIAGNOSIS The diagnosis of genital herpes is based on an individual's medical history, their signs and symptoms, and the results of tests. It is important to distinguish genital herpes from other sexually transmitted diseases, particularly those that also produce genital ulcers, such as syphilis and chancroid. Several diagnostic tests may also be used to diagnose genital herpes. These tests can usually confirm infection and identify which virus (HSV-1 or HSV-2) is responsible. The choice of testing will depend on your symptoms and whether you have any blisters or ulcers at the time you see your doctor. Culture test -- A culture test determines if herpes simplex virus is present in blisters or ulcers. However, a herpes culture detects the virus in only about 50 percent of individuals with genital ulcers. The culture is more likely to detect the virus when ulcers are new and open, as compared to when they are older and healing. Therefore, it is important to see a healthcare provider within 48 hours of the first symptoms. The test is also more sensitive in individuals experiencing an initial episode of genital herpes than in individuals experiencing a recurrent episode. Blood test -- Blood tests are often used when a person believes he or she may have been exposed to the herpes virus in the past, but has no visible ulcers. A blood test can detect antibodies (proteins that are produced by the body in response to a foreign substance) to HSV type 1 and type 2. Having a positive test for these antibodies indicates that the person was infected with the virus at some time in the past, although it is usually not possible to know when or from whom the virus was transmitted. The results of antibody testing may be negative early on during the initial episode of infection since antibody formation takes a few weeks. The antibody test remains positive for life. Blood tests may be helpful for couples if one person has a history of genital herpes and the other does not. If the partner has not been infected, then it is important to discuss ways to prevent transmission. Determining the type of herpes (1 or 2) can also help to predict the likelihood of future recurrences, given that type 2 recurs more frequently than type 1. GENITAL HERPES TRANSMISSION AND RISK FACTORS Transmission between sexual partners -- The herpes virus is most often transmitted between partners during oral, anal, or vaginal sex. It is also possible for a person to develop genital herpes after exposure to a cold sore on an infected person's lip during oral sex; in this case, genital herpes may be due to infection with HSV type 1. Transmission from person to person can occur even if there are no visible ulcers There is no risk of becoming infected after exposure to environmental surfaces (door knobs, toilet seats, utensils, bed sheets). The risk of transmission from an infected male to an uninfected female partner is slightly higher than the risk of transmission from an infected female to an uninfected male partner. As with any sexually transmitted infection, the risk of ashia genital herpes increases according to the number of sex partners you have, how often you have sex, and how infrequently you use condoms. When am I most likely to spread the virus? -- The risk of spreading the infection is much greater when a person has signs or symptoms of active infection. But it is still possible to spread the infection even when no ulcers are present. One study examined rates of genital herpes transmission in heterosexual couples when only one partner was initially infected [1]. Over one year, the virus was transmitted to the other partner in 10 percent of couples. In 70 percent of cases, infection occurred at a time when there were no symptoms. Use of condoms and suppressive antiviral medication can decrease the risk of spreading the infection to partners who are not infected, especially during the first year after a person becomes infected. and herpes -- Women who have their first outbreak of genital herpes near the time of delivery are at risk of transmitting herpes to their . Careful planning during the and precautions during and at the time of delivery can reduce the likelihood of transmission. Since herpes in infants is a very serious condition, women should inform their healthcare provider if they have a history of the infection. While women who acquire genital herpes before becoming are not likely to pass the virus to the baby, it is still possible for this to happen. For example, transmission from mother to child can occasionally occur if the mother has a recurrence at the time of delivery. For this reason, preventive antiviral therapy with acyclovir is often recommended for women with one or more recurrences during . A caesarean delivery is usually recommended in women who experience an outbreak of symptoms at the time of labor. Women with no history of genital herpes whose partner has a history of cold sores (generally HSV type 1) or genital herpes (generally HSV type 2) should avoid oral, vaginal, and anal sex during the last trimester of . Condoms are recommended during the entire . GENITAL HERPES AND HIV Individuals with genital herpes are at an increased risk of acquiring HIV. During an outbreak, blisters and ulcers make it easier for a partner's genital fluids to enter the body. Therefore, if a person with herpes is exposed to HIV through sexual contact while herpetic lesions are present, HIV can more easily travel through the skin. Condoms help decrease the spread of HSV and HIV. GENITAL HERPES TREATMENT Although there is no cure for genital herpes, the infection can be managed with antiviral drug therapy and self-care measures. Antiviral medications -- Three antiviral medications are used to treat genital herpes: acyclovir (Zovirax ), famciclovir (Famvir ), and valacyclovir (Valtrex ). They are usually taken by mouth (in pill form). Acyclovir (Zovirax ) is the oldest and least expensive antiviral medication. It usually requires more frequent dosing than famciclovir and valacyclovir. Treatment regimen -- The dose and length of treatment depends upon whether the outbreak is the first episode or is a recurrence. Initial episode -- The first episode of genital herpes is generally treated with 7 to 10 days of one antiviral medication, taken by mouth. Episodic therapy -- Episodic therapy is a treatment strategy of taking antiviral medicines only when outbreaks occur. Episodic therapy may be recommended if you have fewer than six outbreaks each year. Unfortunately, episodic treatment does not reduce the frequency of outbreaks. The advantage of episodic therapy is that it can decrease the duration and severity of the illness by hours to a few days. Treatment is most likely to be effective if it is started within 72 hours of the first symptoms. People with a history of recurrent genital herpes are often advised to keep a supply of antiviral medication in their home, which they can initiate at the first signs of a recurrence (eg, pain or tingling symptoms or at the sign of their first blister). Suppressive therapy -- Suppressive therapy is low dose antiviral treatment that is taken every day to prevent outbreaks. The advantage of suppressive therapy is that it decreases the frequency and duration of recurrences, and can reduce the risk of transmitting HSV to an uninfected sex partner. Suppressive therapy may be recommended if you have six or more recurrences each year or have a weakened immune system due to the human immunodeficiency virus (HIV), use of immune-suppressing drugs, or other factors. Suppressive therapy may also be an option if you are in a sexual relationship with a partner who does not have a history of genital herpes or antibodies to HSV-1 or 2 (as determined by blood testing). One study of valacyclovir showed that taking suppressive therapy can reduce the chances of transmitting the virus by approximately one-half. It is not clear how long suppressive therapy should continue. Some experts recommend taking a break from treatment periodically (every few years) to determine if suppressive therapy is still needed. If recurrent outbreaks develop, suppressive therapy may be restarted. No treatment -- It is not necessary to treat a recurrent episode of genital herpes. No treatment may be appropriate for some patients, particularly those with infrequent outbreaks or minimal symptoms. It also may be appropriate if the patient is not currently sexually active, so transmission of HSV is not a consideration. Which treatment regimen is right for me? -- Many people with recurrent herpes are unsure which treatment regimen (episodic or daily suppression) is right for them. The factors you should consider include how often you have outbreaks, how severe your symptoms are, and the risk of passing the infection to a sexual partner. If you have frequent outbreaks, severe symptoms, or want to avoid infecting a sexual partner, suppressive treatment might be recommended. If you do not have frequent outbreaks, are not bothered by symptoms (pain) during an outbreak, and are not concerned about infecting a sexual partner (because you are not sexually active), episodic therapy or no therapy are reasonable options. Self-care measures -- In addition to antiviral medications, local treatments may be used to relieve the pain of a herpes outbreak. Sitting in a few inches of cool water (called a sitz bath) can temporarily decrease ulcer pain. This can be done in a bathtub or a specially designed sitz bath, available at most pharmacies without a prescription. Women who are having trouble urinating may find it helpful to urinate in the sitz bath or at the end of a warm bath. Soaps and bubble baths should be avoided. It is important to keep the genital area clean and dry, and to avoid tight or irritating underwear and clothing. Acetaminophen (Tylenol ) or ibuprofen (Advil ) may also help relieve the pain of genital ulcers. [id number] creams and ointments are generally not recommended. COUNSELING AND SUPPORT The diagnosis of genital herpes can cause feelings of shame, fear, and distress. While these reactions are normal, it is important to remember that genital herpes is a manageable condition. Education is important for infected individuals and their partner to know what to expect and how to protect themselves. Many patients find that counseling, either with their family healthcare provider or a mental health professional, is helpful in dealing with the issues that come with a diagnosis of genital herpes. Counseling may be especially important for people who have tested positive for the virus, but have not developed symptoms. There are many genital herpes support groups in the [place] and worldwide; these provide a safe environment for people to share their experiences and feelings, and also to learn accurate information about the disease. Infected individuals are encouraged to speak with their healthcare provider or visit the websites listed below. GENITAL HERPES PREVENTION Because all sexually active people are at some risk of acquiring genital herpes, it is important to communicate with a sexual partner before the first sexual encounter. Discussing herpes can be uncomfortable and embarrassing, but it ensures that both partners understand the possibility of transmitting the infection through sexual activity. Regular testing for sexually transmitted diseases is also recommended, especially if one or both partners have other sexual partners. After being diagnosed with genital herpes, it is still possible to have a safe and healthy sex life; however, it is important to take precautions. Using a latex condom with every sexual encounter can reduce the risk of herpes transmission when only one member of a couple has the virus. The more often you use latex condoms, the lower the risk of transmission. Even when a person has no ulcers or blisters, use of a condom is recommended. Sex should be avoided any time genital ulcers are present. Oral sex should be avoided if there are ulcers or blisters around the mouth because a person with the oral form of herpes can give a partner genital herpes by performing oral sex. SUMMARY Genital herpes is a viral infection that is spread during sex. Symptoms of genital herpes include blisters in the genital area (eg, penis, buttocks, anus, vulva). The blisters become painful ulcers. Some people have no symptoms at all. Symptoms are usually most severe when they first appear. Outbreaks usually become less intense and less frequent over time. Most people have an outbreak of genital herpes more than once in their life. The frequency of these outbreaks varies from individual to individual. Several tests are available to diagnose genital herpes. Some tests use blood while others require a swab of the blister. It is possible to spread herpes even if there are no visible ulcers. It is not possible to catch herpes by touching a surface (door knobs, toilet seat, bed sheets). Several medications are available to treat genital herpes (acyclovir, valacyclovir, and famciclovir). These drugs help to speed healing of ulcers in people who have just been infected or in those who are having repeat outbreaks. Some people who have herpes outbreaks take medicine every day to prevent future outbreaks or prevent spread to their sex partner. There are ways to lower the risk of being infected with genital herpes. People should use a latex condom every time they have sex. Sex (oral, vaginal, and anal) is not recommended if a person has blisters or ulcers. documented in this encounter [facility] 04-15-2024 Note HNO ID: [id number] Author: CHAVEZ ORDONEZ APRN.JANETH Service: ? Author Type: Nurse Practitioner Type: Progress Notes Filed: 04/15/2024 09:36 Note Text: Occupational Health Nurse Manager offered: Patient declines. Yamilet Rivas is a 38 year old female who presents for a follow up visit. HPI: Yamilet was here on 04/10/24 for continued vaginal pain and LS. She had a possible secondary outbreak so Valtrex 1 g twice daily was ordered. She had just finished 400 mg of Acyclovir TID for 10 days. She was also having a severe LS flare. Clobetasol BID to affected area was recommended. She reports today that she's feeling better, but not completely back to normal. Reports period is 15 days late. 2 negative tests at home. 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 Anxiety with depression 06/12/2015 ASCUS with positive high risk HPV cervical 2019 HSV-1 (herpes simplex virus 1) infection 03/2024 Lichen sclerosus 2019 Lupus anticoagulant disorder (HCC) 08/28/2019 Obesity 2000 s/p gastric sleeve 2018 affected by growth restriction 02/28/2019 PAST SURGICAL HISTORY Procedure Laterality Date COLPOSCOPY CERVIX UPPER/ADJACENT VAGINA 04/2019 x 2 COLPOSCOPY CERVIX UPPER/ADJACENT VAGINA 06/18/2019 FOOT SURGERY HX Right 03/2016 fusions,heel. Dr. Zhu, [facility] FOOT SURGERY HX Right 09/2014 [facility] FOOT SURGERY HX Right 09/2015 hardware removal LAPS SURG CHOLECYSTECTOMY W/CHOLANGIOGRAPHY 04/15/2019 [facility] SLEEVE GASTRECTOMY; OPEN 04/2018 [facility]ILY HISTORY Problem Relation Age of Onset Hypertension Mother Diabetes Maternal Grandmother Type II Stroke Maternal Grandmother Parkinsonism Maternal Grandmother Hypertension Maternal Grandmother Diabetes Maternal Grandfather Type II Blood Clots Maternal Grandfather Heart Maternal Grandfather Hypertension Maternal Grandfather Hypertension Paternal Grandmother COPD Paternal Grandmother Heart Paternal Grandfather A-fib Hypertension Paternal Grandfather No Known Problems Father No Known Problems Sister No Known Problems Brother Social History Tobacco Use Smoking status: Never Smokeless tobacco: Never Vaping Use Vaping status: Never Used Substance Use Topics Alcohol use: Not Currently Drug use: Never Current Outpatient Medications Medication Sig L. acidophilus/L. rhamnosus (FLORAJEN WOMEN ORAL) Take by mouth. LYSINE ORAL Take by mouth. tirzepatide (MOUNJARO) 10 mg/0.5 mL pen injector Inject 7.5 mg subcutaneously one time a week. valACYclovir (VALTREX) 1 gram tablet Take 1 tablet by mouth two times a day for 5 days. clobetasol (TEMOVATE) 0.05 % cream Apply to affected area two times a day. copper (PARAGARD T 380A) 380 square mm intrauterine device 1 Each by INTRAUTERINE route. FLUoxetine (PROZAC) 40 mg capsule Take 1 capsule by mouth every afternoon. ALPRAZolam (XANAX) 0.5 mg tablet Take 0.5 mg by mouth every 8 hours as needed. buPROPion SR (WELLBUTRIN SR) 150 mg 12 hr tablet Take 1 tablet by mouth twice daily. (Patient taking differently: Take 150 mg by mouth two times a day. Taking 1 150 and one 300 once daily) No current facility-administered medications for this visit. Allergies As of Date: 04/15/2024 (No Known Allergies) Fully Assessed 04/15/2024 REVIEW OF SYSTEMS Expanded ROS: MAMMOGRAPHER: Positive for vaginal pain/ LS flare Allergies and current medication updated:Yes SENSITIVE EXAM: The sensitive examination was discussed with the Patient or Patient's Authorized Basic Combatant Swimmer. As applicable, any other physician, advance practice provider, medical student, or other health professional student that will be observing or involved in the sensitive examination for educational or training purposes was discussed with the Patient or Authorized Basic Combatant Swimmer. The Patient or Authorized Basic Combatant Swimmer has agreed to proceed with the sensitive examination. (Sensitive examination includes inspection and/or palpation of the breasts, pelvis, prostate and anorectal regions). EXAM: BP 120/70 Wt 146 lb 3.2 oz (66.3kg) LMP 12/18/2019 GENERAL: pleasant, female in no apparent distress HEENT: Normocephalic, atraumatic, mucus membranes moist, and no lesions CHEST: Normal inspiratory effort PELVIC: normal Bartholin's glands, urethra, [place]'s glands,+ resolving lesions to perineum, + whitening of skin from top of vulva to skin surrounding anus bilaterally BIMANUAL: deferred NEURO: alert and oriented x3,exam grossly non-focal EXTREMITIES: normal ASSESSMENT AND PLAN: ASSESSMENT/STEVEN (more content not included)... [facility] 04-15-2024 History of Presen t illness Narrative Occupational Health Nurse Manager offered: Patient declines. Yamilet Rivas is a 38 year old female who presents for a follow up visit. HPI: Yamilet was here on 04/10/24 for continued vaginal pain and LS. She had a possible secondary outbreak so Valtrex 1 g twice daily was ordered. She had just finished 400 mg of Acyclovir TID for 10 days. She was also having a severe LS flare. Clobetasol BID to affected area was recommended. She reports today that she's feeling better, but not completely back to normal. Reports period is 15 days late. 2 negative tests at home. 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 Anxiety with depression 06/12/2015 ASCUS with positive high risk HPV cervical 2019 HSV-1 (herpes simplex virus 1) infection 03/2024 Lichen sclerosus 2019 Lupus anticoagulant disorder (HCC) 08/28/2019 Obesity 2000 s/p gastric sleeve 2018 affected by growth restriction 02/28/2019 PAST SURGICAL HISTORY Procedure Laterality Date COLPOSCOPY CERVIX UPPER/ADJACENT VAGINA 04/2019 x 2 COLPOSCOPY CERVIX UPPER/ADJACENT VAGINA 06/18/2019 FOOT SURGERY HX Right 03/2016 fusions,heel. Dr. [facility], [facility] FOOT SURGERY HX Right 09/2014 [facility] FOOT SURGERY HX Right 09/2015 hardware removal LAPS SURG CHOLECYSTECTOMY W/CHOLANGIOGRAPHY 04/15/2019 [facility] SLEEVE GASTRECTOMY; OPEN 04/2018 [facility] FAMILY HISTORY Problem Relation Age of Onset Hypertension Mother Diabetes Maternal Grandmother Type II Stroke Maternal Grandmother Parkinsonism Maternal Grandmother Hypertension Maternal Grandmother Diabetes Maternal Grandfather Type II Blood Clots Maternal Grandfather Heart Maternal Grandfather Hypertension Maternal Grandfather Hypertension Paternal Grandmother COPD Paternal Grandmother Heart Paternal Grandfather A-fib Hypertension Paternal Grandfather No Known Problems Father No Known Problems Sister No Known Problems Brother Social History Tobacco Use Smoking status: Never Smokeless tobacco: Never Vaping Use Vaping status: Never Used Substance Use Topics Alcohol use: Not Currently Drug use: Never Current Outpatient Medications Medication Sig L. acidophilus/L. rhamnosus (FLORAJEN WOMEN ORAL) Take by mouth. LYSINE ORAL Take by mouth. tirzepatide (MOUNJARO) 10 mg/0.5 mL pen injector Inject 7.5 mg subcutaneously one time a week. valACYclovir (VALTREX) 1 gram tablet Take 1 tablet by mouth two times a day for 5 days. clobetasol (TEMOVATE) 0.05 % cream Apply to affected area two times a day. copper (PARAGARD T 380A) 380 square mm intrauterine device 1 Each by INTRAUTERINE route. FLUoxetine (PROZAC) 40 mg capsule Take 1 capsule by mouth every afternoon. ALPRAZolam (XANAX) 0.5 mg tablet Take 0.5 mg by mouth every 8 hours as needed. buPROPion SR (WELLBUTRIN SR) 150 mg 12 hr tablet Take 1 tablet by mouth twice daily. (Patient taking differently: Take 150 mg by mouth two times a day. Taking 1 150 and one 300 once daily) No current facility-administered medications for this visit. Allergies As of Date: 04/15/2024 (No Known Allergies) Fully Assessed 04/15/2024 REVIEW OF SYSTEMS Expanded ROS: MAMMOGRAPHER: Positive for vaginal pain/ LS flare Allergies and current medication updated:Yes SENSITIVE EXAM: The sensitive examination was discussed with the Patient or Patient's Authorized Basic Combatant Swimmer. As applicable, any other physician, advance practice provider, medical student, or other health professional student that will be observing or involved in the sensitive examination for educational or training purposes was discussed with the Patient or Authorized Basic Combatant Swimmer. The Patient or Authorized Basic Combatant Swimmer has agreed to proceed with the sensitive examination. (Sensitive examination includes inspection and/or palpation of the breasts, pelvis, prostate and anorectal regions). EXAM: BP 120/70 Wt 146 lb 3.2 oz (66.3kg) LMP 12/18/2019 GENERAL: pleasant, female in no apparent distress HEENT: Normocephalic, atraumatic, mucus membranes moist, and no lesions CHEST: Normal inspiratory effort PELVIC: normal Bartholin's glands, urethra, [place]'s glands,+ resolving lesions to perineum, + whitening of skin from top of vulva to skin surrounding anus bilaterally BIMANUAL: deferred NEURO: alert and oriented x3,exam grossly non-focal EXTREMITIES: normal ASSESSMENT AND PLAN: ASSESSMENT/PLAN: 1. 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 Lichen sclerosus - ICD9: 701.0, ICD10: L90.0 - Continue clobetasol twice daily to affected area - Recommend wearing gloves when applying due to lesions still present - Follow up for annual exam ~ 2 weeks to evaluate and perform pap or sooner as needed Reviewed period likely late due to stress caused by infection. Urine test done today. Chavez Ordonez APRN.CNP Medical Decision Making: Problems: Low: Acute, uncomplicated illness or injury Risk: Low: Low risk from testing/treatment Moderate: Drug management Medical Decision Making Level: 3 - Low documented in this encounter [facility] 04-10-2024 Instructions Chavez Ordonez APRN.CNP - 04/10/2024 8:40 AM EDT HERPES What is herpes? There are two types of herpes. The first type is herpes simplex type 1 (or HSV-1). HSV-1 occurs most often on or near the mouth and appears as a chancre or cold sore. The second type, herpes simplex type 2 (or HSV-2), occurs most often on or near the sex organs and is sometimes called genital herpes. The herpes virus is spread by close personal contact, such as kissing or sexual intercourse. Genital herpes is a sexually transmitted disease, or STD. What are the symptoms of genital herpes? You can have herpes and have only mild symptoms or no symptoms at all. The first attack of herpes usually follows this course: The skin on or near the sex organ becomes inflamed. The skin might burn, itch, or be painful. Blister-like sores appear on or near the sex organ. Sores open, scab over, and then heal. Symptoms that might also be present when the virus first appears include: Swollen glands Fever Headache Burning when passing urine Muscle aches The first outbreak of herpes can last for several weeks. After the outbreak, the virus retreats to the nervous system where it remains inactive (latent) until something triggers it to become active again. How can I know if I have herpes? If you think you have herpes, or any STD, contact your health care provider. He or she can examine you and perform tests to determine if you have an STD. To check for herpes, your health care provider: Examines the blisters or sores Takes a sample of tissue from the sore to look at under a microscope or to send to a laboratory to see if herpes is present The test for herpes is not effective if the sores have healed or are several days old. You might need to return to the clinic for another test, since there is no reliable test that can be done when the sores are not present. Can herpes be cured? No. There is no cure for herpes. Once a person has the virus, it remains in the body. The virus lies latent in the nerve cells until something triggers it to become active again. These herpes outbreaks, which can include the painful herpes sores, can be controlled with medication. What can I do if I have herpes? Many people who find out they have herpes feel depressed knowing they will always have the virus and can give it to others. But you are not alone. It is estimated that one out of every six adults has herpes. If you have herpes, you should: Learn all you can about herpes (Information will help you to manage your disease and feel better about yourself.) Talk about your illness with a trusted friend If you have herpes, you can still: Have sex, if you use a condom (and/or have your partner use a condom) and you tell your partner about your illness Have children (Women with herpes can still give to healthy babies. If you have herpes and plan to have children, discuss your illness with your health care provider.) How can I prevent spreading herpes? Herpes can be spread even when there are no symptoms. To prevent spreading the virus: Use a condom when you have sex. Also use a spermicide containing nonoxynol 9. (Using a condom will not always prevent the spread of herpes because some sores might be in a place that cannot be covered by a condom.) Don't have sex when sores are present. How often do outbreaks happen? How often outbreaks happen depends on the person. On average, people with herpes experience about four outbreaks a year. The first outbreak is usually the most painful and takes the longest to heal. The pain and recovery time often decrease with each outbreak. What triggers an outbreak? It depends on the person. Some commonly reported triggers include: Stress Illness Surgery Vigorous sex Diet Monthly period How can I protect myself from herpes? Do not have sex with someone who has an open sore on his or her sex organ. Always use a latex condom during sex. Also use a spermicide that contains nonoxynol-9. Limit your number of sex partners. Where can I learn more? CDC National STD Hotline: National Herpes Hotline: Copyright 5663-3758 The [facility]. All rights reserved This information is provided by the [facility] and is not intended to replace the medical advice of your doctor or health care provider. Please consult your health care provider for advice about a specific medical condition. For additional written health information, please contact the Health Information Center at the [facility] or toll-free extension [phone]. This document was last reviewed on: 2002 index#[id number] documented in this encounter [facility] 04-10-2024 Note HNO ID: [id number] Author: CHAVEZ ORDONEZ APRN.BUNCH MAKER HAND Service: ? Author Type: Nurse Practitioner Type: Progress Notes Filed: 04/10/2024 10:31 Note Text: Yamilet Rivas is a 38 year old female who presents for problem visit of HSV continuation. HPI: Yamilet was seen on 03/25/24 and was diagnosed with HSV. She was also treated for BV with Flagyl. Finished taking 400 mg of Acyclovir TID for 10 days. She has a history of LS. She is feeling severe pain down to her anus, up to a 10/. Reports that applying the lidocaine to this area feels like acid. 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 Anxiety with depression 06/12/2015 ASCUS with positive high risk HPV cervical 2019 HSV-1 (herpes simplex virus 1) infection 03/2024 Lichen sclerosus 2019 Lupus anticoagulant disorder (HCC) 08/28/2019 Obesity 2000 s/p gastric sleeve 2018 affected by growth restriction 02/28/2019 PAST SURGICAL HISTORY Procedure Laterality Date COLPOSCOPY CERVIX UPPER/ADJACENT VAGINA 04/2019 x 2 COLPOSCOPY CERVIX UPPER/ADJACENT VAGINA 06/18/2019 FOOT SURGERY HX Right 03/2016 fusions,heel. Dr. Zhu, [facility] FOOT SURGERY HX Right 09/2014 [facility] FOOT SURGERY HX Right 09/2015 hardware removal LAPS SURG CHOLECYSTECTOMY W/CHOLANGIOGRAPHY 04/15/2019 [facility] SLEEVE GASTRECTOMY; OPEN 04/2018 [facility] Problem Relation Age of Onset Hypertension Mother Diabetes Maternal Grandmother Type II Stroke Maternal Grandmother Parkinsonism Maternal Grandmother Hypertension Maternal Grandmother Diabetes Maternal Grandfather Type II Blood Clots Maternal Grandfather Heart Maternal Grandfather Hypertension Maternal Grandfather Hypertension Paternal Grandmother COPD Paternal Grandmother Heart Paternal Grandfather A-fib Hypertension Paternal Grandfather No Known Problems Father No Known Problems Sister No Known Problems Brother Social History Tobacco Use Smoking status: Never Smokeless tobacco: Never Vaping Use Vaping status: Never Used Substance Use Topics Alcohol use: Not Currently Drug use: Never Current Outpatient Medications Medication Sig lidocaine (LMX) 4 % cream 1 application of small amount to affected area up to 7 times a day as needed for pain control. copper (PARAGARD T 380A) 380 square mm intrauterine device 1 Each by INTRAUTERINE route. FLUoxetine (PROZAC) 40 mg capsule Take 1 capsule by mouth every afternoon. ALPRAZolam (XANAX) 0.5 mg tablet Take 0.5 mg by mouth every 8 hours as needed. buPROPion SR (WELLBUTRIN SR) 150 mg 12 hr tablet Take 1 tablet by mouth twice daily. (Patient taking differently: Take 150 mg by mouth two times a day. Taking 1 150 and one 300 once daily) valACYclovir (VALTREX) 1 gram tablet Take 1 tablet by mouth two times a day for 5 days. clobetasol (TEMOVATE) 0.05 % cream Apply to affected area two times a day. No current facility-administered medications for this visit. Allergies As of Date: 04/10/2024 (No Known Allergies) Fully Assessed 03/25/2024 REVIEW OF SYSTEMS Expanded ROS: vulvar pain Allergies and current medication updated:Yes SENSITIVE EXAM: The sensitive examination was discussed with the Patient or Patient's Authorized Basic Combatant Swimmer. As applicable, any other physician, advance practice provider, medical student, or other health professional student that will be observing or involved in the sensitive examination for educational or training purposes was discussed with the Patient or Authorized Basic Combatant Swimmer. The Patient or Authorized Basic Combatant Swimmer has agreed to proceed with the sensitive examination. (Sensitive examination includes inspection and/or palpation of the breasts, pelvis, prostate and anorectal regions). EXAM: LMP 12/18/2019 GENERAL: pleasant, female in no apparent distress HEENT: Normocephalic, atraumatic, mucus membranes moist, and no lesions CHEST: Normal inspiratory effort PELVIC: external mild erythematous, normal Bartholin's glands, urethra, [place]'s glands, + severe inflammation and whitening of tissue from introitus down to skin surrounding anus bilaterally, severe weeping flat lesionsdeferred NEURO: alert and oriented x3,exam grossly non-focal EXTREMITIES: normal ASSESSMENT AND PLAN: 1. 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 [facility] 04-10-2024 History of Presen t illness Narrative Yamilet Rivas is a 38 year old female who presents for problem visit of HSV continuation. HPI: Yamilet was seen on 03/25/24 and was diagnosed with HSV. She was also treated for BV with Flagyl. Finished taking 400 mg of Acyclovir TID for 10 days. She has a history of LS. She is feeling severe pain down to her anus, up to a 10/. Reports that applying the lidocaine to this area feels like acid. 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 Anxiety with depression 06/12/2015 ASCUS with positive high risk HPV cervical 2019 HSV-1 (herpes simplex virus 1) infection 03/2024 Lichen sclerosus 2019 Lupus anticoagulant disorder (HCC) 08/28/2019 Obesity 2000 s/p gastric sleeve 2018 affected by growth restriction 02/28/2019 PAST SURGICAL HISTORY Procedure Laterality Date COLPOSCOPY CERVIX UPPER/ADJACENT VAGINA 04/2019 x 2 COLPOSCOPY CERVIX UPPER/ADJACENT VAGINA 06/18/2019 FOOT SURGERY HX Right 03/2016 fusions,heel. Dr. Zhu, [facility] FOOT SURGERY HX Right 09/2014 [facility] [place] [facility] FOOT SURGERY HX Right 09/2015 hardware removal LAPS SURG CHOLECYSTECTOMY W/CHOLANGIOGRAPHY 04/15/2019 [facility] SLEEVE GASTRECTOMY; OPEN 04/2018 [facility] HISTORY Problem Relation Age of Onset Hypertension Mother Diabetes Maternal Grandmother Type II Stroke Maternal Grandmother Parkinsonism Maternal Grandmother Hypertension Maternal Grandmother Diabetes Maternal Grandfather Type II Blood Clots Maternal Grandfather Heart Maternal Grandfather Hypertension Maternal Grandfather Hypertension Paternal Grandmother COPD Paternal Grandmother Heart Paternal Grandfather A-fib Hypertension Paternal Grandfather No Known Problems Father No Known Problems Sister No Known Problems Brother Social History Tobacco Use Smoking status: Never Smokeless tobacco: Never Vaping Use Vaping status: Never Used Substance Use Topics Alcohol use: Not Currently Drug use: Never Current Outpatient Medications Medication Sig lidocaine (LMX) 4 % cream 1 application of small amount to affected area up to 7 times a day as needed for pain control. copper (PARAGARD T 380A) 380 square mm intrauterine device 1 Each by INTRAUTERINE route. FLUoxetine (PROZAC) 40 mg capsule Take 1 capsule by mouth every afternoon. ALPRAZolam (XANAX) 0.5 mg tablet Take 0.5 mg by mouth every 8 hours as needed. buPROPion SR (WELLBUTRIN SR) 150 mg 12 hr tablet Take 1 tablet by mouth twice daily. (Patient taking differently: Take 150 mg by mouth two times a day. Taking 1 150 and one 300 once daily) valACYclovir (VALTREX) 1 gram tablet Take 1 tablet by mouth two times a day for 5 days. clobetasol (TEMOVATE) 0.05 % cream Apply to affected area two times a day. No current facility-administered medications for this visit. Allergies As of Date: 04/10/2024 (No Known Allergies) Fully Assessed 03/25/2024 REVIEW OF SYSTEMS Expanded ROS: vulvar pain Allergies and current medication updated:Yes SENSITIVE EXAM: The sensitive examination was discussed with the Patient or Patient's Authorized Basic Combatant Swimmer. As applicable, any other physician, advance practice provider, medical student, or other health professional student that will be observing or involved in the sensitive examination for educational or training purposes was discussed with the Patient or Authorized Basic Combatant Swimmer. The Patient or Authorized Basic Combatant Swimmer has agreed to proceed with the sensitive examination. (Sensitive examination includes inspection and/or palpation of the breasts, pelvis, prostate and anorectal regions). EXAM: LMP 12/18/2019 GENERAL: pleasant, female in no apparent distress HEENT: Normocephalic, atraumatic, mucus membranes moist, and no lesions CHEST: Normal inspiratory effort PELVIC: external mild erythematous, normal [place]'s glands, urethra, [place]'s glands, + severe inflammation and whitening of tissue from introitus down to skin surrounding anus bilaterally, severe weeping flat lesionsdeferred NEURO: alert and oriented x3,exam grossly non-focal EXTREMITIES: normal ASSESSMENT AND PLAN: 1. 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 Lichen sclerosus - ICD9: 701.0, ICD10: L90.0 - Flare likely a result of HSV - Recommend clobetasol twice a day to affected area RTO in 1 week to evaluate and review HSV in detail, decide on suppressive vs episodic therapy. Chavez Ordonez APRN.CNP Medical Decision Making: Problems: Moderate: Acute illness with systemic symptoms Data: Unique test result(s) reviewed: 3+ Risk: Low: Low risk from testing/treatment Moderate: Drug management Medical Decision Making Level: 4 - Moderate documented in this encounter [facility] 04-05-2024 Telephone encounter Note Will refill Acyclovir. Patient will need to discuss other medications with provider. Court Clifford APRN.CNM [facility] 04-05-2024 Miscellaneous Notes Will refill Acyclovir. Patient will need to discuss other medications with provider. Court Clifford APRN.CNM Request received via [employer]. Patient was seen in the office on 03/25 and was given Acyclovir 400 mg TID for 10 days. Lidocaine was prescribed on 03/28. Can you review in SW's absence? Patient comment: I am still in tremendous pain and I am out of all of my medications. Am i able to be on a higher dosage of Acocylovir -and get back on the gabepention 900mg a day micheline Anika Valenzuela RN documented in this encounter [facility] 04-05-2024 Telephone encounter Note Request received via [employer]. Patient was seen in the office on 03/25 and was given Acyclovir 400 mg TID for 10 days. Lidocaine was prescribed on 03/28. Can you review in SW's absence? Patient comment: I am still in tremendous pain and I am out of all of my medications. Am i able to be on a higher dosage of Acocylovir -and get back on the gabepention 900mg a day micheline Anika Valenzuela RN [facility] 03-29-2024 Telephone encounter Note Called and spoke with patient. Notified of the below recommendations. The pharmacy has the prescription for the cream, but the pharmacy told her that she can purchase this over the counter. She has not been taking the Gabapentin. She no longer sees the physician who ordered it for her due to insurance. She has not been taking the Ibuprofen scheduled, so again encouraged that she do so. Jennifer Mann RN [facility] 03-29-2024 Miscellaneous Notes Called and spoke with patient. Notified of the below recommendations. The pharmacy has the prescription for the cream, but the pharmacy told her that she can purchase this over the counter. She has not been taking the Gabapentin. She no longer sees the physician who ordered it for her due to insurance. She has not been taking the Ibuprofen scheduled, so again encouraged that she do so. Jennifer Mann RN She can also soak in a bath tub with baking soda. Is she taking Ibuprofen scheduled? Does she also take the gabapentin TID as stated in her chart? It may help the nerve pain. Patient tearful on the phone. States that she can barely walk due to the discomfort of her HSV lesions. She's been taking the Acyclovir as directed. Her mom picked her up a lidocaine spray over the counter. Advised that lidocaine cream RX was sent to her pharmacy yesterday since they did not have the gel. Patient will call the pharmacy. Asking what else she can do for the pain because she could only work 3 hours today. Recommended trying ice and alternating NSAIDs and Tylenol. Do you have further recommendations? Jennifer Mann RN documented in this encounter [facility] 03-29-2024 Telephone encounter Note She can also soak in a bath tub with baking soda. Is she taking Ibuprofen scheduled? Does she also take the gabapentin TID as stated in her chart? It may help the nerve pain. [facility] Work Phone: 03-29-2024 Telephone encounter Note Patient tearful on the phone. States that she can barely walk due to the discomfort of her HSV lesions. She's been taking the Acyclovir as directed. Her mom picked her up a lidocaine spray over the counter. Advised that lidocaine cream RX was sent to her pharmacy yesterday since they did not have the gel. Patient will call the pharmacy. Asking what else she can do for the pain because she could only work 3 hours today. Recommended trying ice and alternating NSAIDs and Tylenol. Do you have further recommendations? Jennifer Mann RN [facility] 03-28-2024 Telephone encounter Note filed [facility] 03-28-2024 Miscellaneous Notes filed Called [facility] as it appears on our end Rx was sent 03/25/24. [facility] has the Lidocaine cream, but does not carry to gel. Changed order to cream and if appropriate please fax to [facility] in [place]. Will need to let Pt know once it has been faxed, thank you! Marly Cloud RN documented in this encounter [facility] 03-28-2024 Telephone encounter Note Called [facility] pharmacy as it appears on our end Rx was sent 03/25/24. [facility] has the Lidocaine cream, but does not carry to gel. Changed order to cream and if appropriate please fax to [facility] in [place]. Will need to let Pt know once it has been faxed, thank you! Marly Cloud RN [facility] 03-26-2024 Telephone encounter Note Patient notified and voiced understanding. Anika Valenzuela RN [facility] 03-26-2024 Miscellaneous Notes Patient notified and voiced understanding. Anika Valenzuela RN No, unfortunately I don't have anything else for her to use. She can try ice to the area, the medication should start to help within in the next day or so. Marifer Cabrera APRN.CNP Patient viewed mychart message and aware of BV result. She called in asking what she can do for vaginal lesions. 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 She did start acyclovir and states the lidocaine gel mcconnell too bad for her to use. Lesions are very painful and barely able to move with them d/t the pain it causes. Asking if there is something else she can use to help with that. Angie Sorto RN BV positive. To treat with Flagyl 500mg PO BID for 7 days. 1) No alcohol during treatment and for 24 hours after last dose. 2) No intercourse during treatment. 3) Probiotic by mouth once daily for 30 days or as needed. Marifer Cabrera APRN.CNP documented in this encounter [facility] 03-26-2024 Telephone encounter Note No, unfortunately I don't have anything else for her to use. She can try ice to the area, the medication should start to help within in the next day or so. Marifer Cabrera APRN.JANETH [facility] 03-26-2024 Telephone encounter Note Patient viewed [email or web address] message and aware of BV result. She called in asking what she can do for vaginal lesions. 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 She did start acyclovir and states the lidocaine gel mcconnell too bad for her to use. Lesions are very painful and barely able to move with them d/t the pain it causes. Asking if there is something else she can use to help with that. Angie Sorto RN [facility] 03-26-2024 Telephone encounter Note BV positive. To treat with Flagyl 500mg PO BID for 7 days. 1) No alcohol during treatment and for 24 hours after last dose. 2) No intercourse during treatment. 3) Probiotic by mouth once daily for 30 days or as needed. Marifer Cabrera APRN.BUNCH MAKER HAND [facility] 03-25-2024 Note Addended by: PRAKASH MARIE on: 03/25/2024 04:03 PM Modules accepted: Orders [facility] 03-25-2024 Miscellaneous Notes Addended by: PRAKASH MARIE on: 03/25/2024 04:03 PM Modules accepted: Orders Addended by: DAISY CARROLL on: 03/25/2024 03:35 PM Modules accepted: Orders documented in this encounter [facility] 03-25-2024 Note Addended by: DAISY CARROLL on: 03/25/2024 03:35 PM Modules accepted: Orders [facility] 03-25-2024 Note HNO ID: [id number] Author: PRAKASH MARIE MD Service: ? Author Type: Physician Type: Progress Notes Filed: 03/25/2024 15:32 Note Text: Occupational Health Nurse Manager offered: Patient declines. Yamilet Rivas is a 38 year old female who presents for problem visit vaginal discharge, vulvar burning and pain. HPI: Having vaginal discharge, vulvar burning and pain. Noticed a few red vulvar lesions last night. Went into the ER yesterday the vulvar pain was so bad. Sexually active with partner of 5 years. No know STD exposure. Has copper IUD. No fevers, chills, abd pain, nausea, vomiting. 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 Anxiety with depression 06/12/2015 ASCUS with positive high risk HPV cervical 2019 Lichen sclerosus 2018 Lupus anticoagulant disorder (HCC) 08/28/2019 Obesity 2000 s/p gastric sleeve 2018 affected by growth restriction 02/28/2019 PAST SURGICAL HISTORY Procedure Laterality Date COLPOSCOPY CERVIX UPPER/ADJACENT VAGINA 04/2019 x 2 COLPOSCOPY CERVIX UPPER/ADJACENT VAGINA 06/18/2019 FOOT SURGERY HX Right 03/2016 fusions,heel. Dr. Zhu, [facility] FOOT SURGERY HX Right 09/2014 [facility] FOOT SURGERY HX Right 09/2015 hardware removal LAPS SURG CHOLECYSTECTOMY W/CHOLANGIOGRAPHY 04/15/2019 [facility] SLEEVE GASTRECTOMY; OPEN 04/2018 [facility] HISTORY Problem Relation Age of Onset Hypertension Mother Diabetes Maternal Grandmother Type II Stroke Maternal Grandmother Parkinsonism Maternal Grandmother Hypertension Maternal Grandmother Diabetes Maternal Grandfather Type II Blood Clots Maternal Grandfather Heart Maternal Grandfather Hypertension Maternal Grandfather Hypertension Paternal Grandmother COPD Paternal Grandmother Heart Paternal Grandfather A-fib Hypertension Paternal Grandfather No Known Problems Father No Known Problems Sister No Known Problems Brother Social History Tobacco Use Smoking status: Never Smokeless tobacco: Never Vaping Use Vaping status: Never Used Substance Use Topics Alcohol use: Not Currently Drug use: Never Current Outpatient Medications Medication Sig clobetasol (TEMOVATE) 0.05 % cream Apply to affected area two times a day. propranolol (INDERAL) 10 mg tablet TAKE 1 TABLET BY MOUTH EVERY DAY IN THE MORNING .MAY REPEAT IN AFTERNOON IF NEEDED. prazosin (MINIPRESS) 1 mg cap TAKE ONE CAPSULE BY MOUTH DAILY APPROXIMATELY ONE HOUR BEFORE BEDTIME. gabapentin (NEURONTIN) 300 mg capsule Take 300 mg by mouth three times a day. FLUoxetine (PROZAC) 40 mg capsule Take 1 capsule by mouth every afternoon. ALPRAZolam (XANAX) 0.5 mg tablet Take 0.5 mg by mouth every 8 hours as needed. buPROPion SR (WELLBUTRIN SR) 150 mg 12 hr tablet Take 1 tablet by mouth twice daily. (Patient taking differently: Take 150 mg by mouth two times a day. Taking 1 150 and one 300 once daily) copper (PARAGARD T 380A) 380 square mm intrauterine device 1 Each by INTRAUTERINE route. acyclovir (ZOVIRAX) 400 mg tablet Take 1 tablet by mouth three times a day for 10 days. lidocaine 4 % gel 1 application of small amount to affected area up to 7 times a day as needed for pain control. losartan (COZAAR) 25 mg tablet Take 1 tablet by mouth every afternoon. (Patient not taking: Reported on 03/25/2024) busPIRone (BUSPAR) 10 mg tablet Take 10 mg by mouth. (Patient not taking: Reported on 03/25/2024) ferrous sulfate 325 mg (65 mg iron) tablet Take 325 mg by mouth twice daily. (Patient not taking: Reported on 03/25/2024) No current facility-administered medications for this visit. Allergies As of Date: 03/25/2024 (No Known Allergies) Fully Assessed 03/25/2024 REVIEW OF SYSTEMS Abdomen: No abdominal pain, nausea, vomiting, diarrhea, or constipation. Bladder: No dysuria, gross hematuria, urinary frequency, urinary urgency, or incontinence. Expanded ROS: N/A Allergies and current medication updated:Yes SENSITIVE EXAM: The sensitive examination was discussed with the Patient or Patient's Authorized Basic Combatant Swimmer. As applicable, any other physician, advance practice provider, medical student, or other health professional student that will be observing or involved in the sensitive examination for educational or training purposes was discussed with the Patient or Authorized Basic Combatant Swimmer. The Patient or Authorized Basic Combatant Swimmer has agreed to proceed with the sensitive examination. (Sensitive examination includes inspection and/or palpation of the breasts, pelvis, prostate and anorectal regions). EXAM: BP 112/80 Wt (more content not included)... [facility] 03-25-2024 History of Presen t illness Narrative Occupational Health Nurse Manager offered: Patient declines. Yamilet Rivas is a 38 year old female who presents for problem visit vaginal discharge, vulvar burning and pain. HPI: Having vaginal discharge, vulvar burning and pain. Noticed a few red vulvar lesions last night. Went into the ER yesterday the vulvar pain was so bad. Sexually active with partner of 5 years. No know STD exposure. Has copper IUD. No fevers, chills, abd pain, nausea, vomiting. OB History T0 L0 SAB0 IAB0 Ectopic0 Multiple0 Live Births0 Wire Weaver History LMP: 12/18/2019 (Exact Date), IUD Age at Menarche: Age at First : Age at Menopause: Wire Weaver History Comments: Sexual Activity: No sexual activity data on record; No partner data on record Contraception: No contraception data on record PAST MEDICAL HISTORY Diagnosis Date MICAH positive 10/23/2019 other serologies negative. Anxiety with depression 06/12/2015 ASCUS with positive high risk HPV cervical 2019 Lichen sclerosus 2018 Lupus anticoagulant disorder (HCC) 08/28/2019 Obesity 2000 s/p gastric sleeve 2018 affected by growth restriction 02/28/2019 PAST SURGICAL HISTORY Procedure Laterality Date COLPOSCOPY CERVIX UPPER/ADJACENT VAGINA 04/2019 x 2 COLPOSCOPY CERVIX UPPER/ADJACENT VAGINA 06/18/2019 FOOT SURGERY HX Right 03/2016 fusions,heel. Dr. Zhu, [facility] FOOT SURGERY HX Right 09/2014 [place] [facility] FOOT SURGERY HX Right 09/2015 hardware removal LAPS SURG CHOLECYSTECTOMY W/CHOLANGIOGRAPHY 04/15/2019 [facility] SLEEVE GASTRECTOMY; OPEN 04/2018 [place] FAMILY HISTORY Problem Relation Age of Onset Hypertension Mother Diabetes Maternal Grandmother Type II Stroke Maternal Grandmother Parkinsonism Maternal Grandmother Hypertension Maternal Grandmother Diabetes Maternal Grandfather Type II Blood Clots Maternal Grandfather Heart Maternal Grandfather Hypertension Maternal Grandfather Hypertension Paternal Grandmother COPD Paternal Grandmother Heart Paternal Grandfather A-fib Hypertension Paternal Grandfather No Known Problems Father No Known Problems Sister No Known Problems Brother Social History Tobacco Use Smoking status: Never Smokeless tobacco: Never Vaping Use Vaping status: Never Used Substance Use Topics Alcohol use: Not Currently Drug use: Never Current Outpatient Medications Medication Sig clobetasol (TEMOVATE) 0.05 % cream Apply to affected area two times a day. propranolol (INDERAL) 10 mg tablet TAKE 1 TABLET BY MOUTH EVERY DAY IN THE MORNING .MAY REPEAT IN AFTERNOON IF NEEDED. prazosin (MINIPRESS) 1 mg cap TAKE ONE CAPSULE BY MOUTH DAILY APPROXIMATELY ONE HOUR BEFORE BEDTIME. gabapentin (NEURONTIN) 300 mg capsule Take 300 mg by mouth three times a day. FLUoxetine (PROZAC) 40 mg capsule Take 1 capsule by mouth every afternoon. ALPRAZolam (XANAX) 0.5 mg tablet Take 0.5 mg by mouth every 8 hours as needed. buPROPion SR (WELLBUTRIN SR) 150 mg 12 hr tablet Take 1 tablet by mouth twice daily. (Patient taking differently: Take 150 mg by mouth two times a day. Taking 1 150 and one 300 once daily) copper (PARAGARD T 380A) 380 square mm intrauterine device 1 Each by INTRAUTERINE route. acyclovir (ZOVIRAX) 400 mg tablet Take 1 tablet by mouth three times a day for 10 days. lidocaine 4 % gel 1 application of small amount to affected area up to 7 times a day as needed for pain control. losartan (COZAAR) 25 mg tablet Take 1 tablet by mouth every afternoon. (Patient not taking: Reported on 03/25/2024) busPIRone (BUSPAR) 10 mg tablet Take 10 mg by mouth. (Patient not taking: Reported on 03/25/2024) ferrous sulfate 325 mg (65 mg iron) tablet Take 325 mg by mouth twice daily. (Patient not taking: Reported on 03/25/2024) No current facility-administered medications for this visit. Allergies As of Date: 03/25/2024 (No Known Allergies) Fully Assessed 03/25/2024 REVIEW OF SYSTEMS Abdomen: No abdominal pain, nausea, vomiting, diarrhea, or constipation. Bladder: No dysuria, gross hematuria, urinary frequency, urinary urgency, or incontinence. Expanded ROS: N/A Allergies and current medication updated:Yes SENSITIVE EXAM: The sensitive examination was discussed with the Patient or Patient's Authorized Basic Combatant Swimmer. As applicable, any other physician, advance practice provider, medical student, or other health professional student that will be observing or involved in the sensitive examination for educational or training purposes was discussed with the Patient or Authorized Basic Combatant Swimmer. The Patient or Authorized Basic Combatant Swimmer has agreed to proceed with the sensitive examination. (Sensitive examination includes inspection and/or palpation of the breasts, pelvis, prostate and anorectal regions). EXAM: BP 112/80 Wt 150 lb (68.0kg) LMP 12/18/2019 GENERAL: emotional, female in no apparent distress HEENT: Normocephalic and atraumatic NECK: full range of motion CHEST: Normal inspiratory effort ABDOMEN: soft, non-tender, and no masses PELVIC: ulcerative lesions over bilateral labia, no cervical lesions, good vaginal support, normal appearing perineal body and perianal region, thin brown discharge present, no cervical tenderness NEURO: exam grossly non-focal EXTREMITIES: normal ASSESSMENT AND PLAN: Assessment & Plan Vulvar lesion Orders: HSV1,2/VZV NAAT LESION HERPES SIMPLEX IGM, WITH REFLEX IGG ABS; Future acyclovir (ZOVIRAX) 400 mg tablet; Take 1 tablet by mouth three times a day for 10 days. lidocaine 4 % gel; 1 application of small amount to affected area up to 7 times a day as needed for pain control. Screen for STD (sexually transmitted disease) Orders: HSV1,2/VZV NAAT LESION HIV 1/2 COMBO WITH REFLEX TO DIFFERENTIATION; Future SYPHILIS TREPONEMAL W/REFLEX; Future HEPATITIS C ANTIBODY IA WITH CONFIRMATION; Future HEPATITIS B SURFACE ANTIGEN; Future GONORRHEA/CHLAMYDIA NAAT HERPES SIMPLEX IGM, WITH REFLEX IGG ABS; Future Vaginal discharge Orders: BACTERIAL VAGINOSIS NAAT ABDIAS/TRICHOMONAS NAAT Vulvar pain Discussed concern for genital herpes given exam findings today. Start Acyclovir. Reviewed symptomatic treatment measures. STD screen today. RTO 2-3 weeks for follow up and PRN. Prakash Marie DO Medical Decision Making: Problems: Low: Acute, uncomplicated illness or injury Data: Unique test(s) ordered: 3+ Risk: Moderate: Drug management Medical Decision Making Level: 4 - Moderate documented in this encounter [facility] 01-16-2024 Note HNO ID: [id number] Author: DANNY CASTREJON MD Service: ? Author Type: Physician Type: Progress Notes Filed: 01/16/2024 11:19 Note Text: Patient presents with: Eye Problem: right eyelid redness and swelling x 5-6 days HPI: Feeling right eyelid swelling for 5-6 days. It is worsening. This morning she noted more trouble reading with the right eye compared to the left. Positive symptoms: swelling upper eyelid, bumps inside the lower eyelid, blurred vision, Negative symptoms: OTC: OTC stye ointment. MEDICATIONS: Current Outpatient Medications Medication Sig propranolol (INDERAL) 10 mg tablet TAKE 1 TABLET BY MOUTH EVERY DAY IN THE MORNING .MAY REPEAT IN AFTERNOON IF NEEDED. prazosin (MINIPRESS) 1 mg cap TAKE ONE CAPSULE BY MOUTH DAILY APPROXIMATELY ONE HOUR BEFORE BEDTIME. gabapentin (NEURONTIN) 300 mg capsule Take 300 mg by mouth three times a day. FLUoxetine (PROZAC) 40 mg capsule Take 1 capsule by mouth every afternoon. losartan (COZAAR) 25 mg tablet Take 1 tablet by mouth every afternoon. ALPRAZolam (XANAX) 0.5 mg tablet Take 0.5 mg by mouth every 8 hours as needed. busPIRone (BUSPAR) 10 mg tablet Take 10 mg by mouth. buPROPion SR (WELLBUTRIN SR) 150 mg 12 hr tablet Take 1 tablet by mouth twice daily. (Patient taking differently: Take 150 mg by mouth two times a day. Taking 1 150 and one 300 once daily) ferrous sulfate 325 mg (65 mg iron) tablet Take 325 mg by mouth twice daily. No current facility-administered medications for this visit. ALLERGIES: ALLERGIES No Known Allergies VITALS: BP 102/62 Pulse 66 Temp 36.2 ?C (97.1 ?F) Resp 16 Wt 68.1 kg (150 lb 2.1 oz) LMP 12/18/2019 (Exact Date) SpO2 99% BMI 26.59 kg/m? PHYSICAL EXAM: GEN: Pleasant, in no acute distress. Accompanied by her active pre-school aged son HEENT: PERRL, EOMI, conjunctiva clear. Right upper eyelid is swollen and pink, no visible pustule at lash line or palpebral conjunctiva. Right lower lid has no erythema or edema, 1-2mm clear thin papules/pustules mid inner lower lid. Sinuses: non-tender frontal sinus, non-tender maxillary sinuses Throat: moist mucous membranes, Neck: supple, ASSESSMENT/PLAN: 1. Hordeolum externum right upper eyelid - ICD9: 373.11, ICD10: H00.011 (primary diagnosis) - POLYMYXIN B SULFATE 10,000 UNIT-TRIMETHOPRIM 1 MG/ML EYE DROPS 2. Hordeolum internum right lower eyelid - ICD9: 373.12, ICD10: H00.022 Continue warm compress. She may schedule follow up with ophtho/optometry when leaving. Danny Castrejon MD [facility] 01-16-2024 History of Presen t illness Narrative Patient presents with: Eye Problem: right eyelid redness and swelling x 5-6 days HPI: Feeling right eyelid swelling for 5-6 days. It is worsening. This morning she noted more trouble reading with the right eye compared to the left. Positive symptoms: swelling upper eyelid, bumps inside the lower eyelid, blurred vision, Negative symptoms: OTC: OTC stye ointment. MEDICATIONS: Current Outpatient Medications Medication Sig propranolol (INDERAL) 10 mg tablet TAKE 1 TABLET BY MOUTH EVERY DAY IN THE MORNING .MAY REPEAT IN AFTERNOON IF NEEDED. prazosin (MINIPRESS) 1 mg cap TAKE ONE CAPSULE BY MOUTH DAILY APPROXIMATELY ONE HOUR BEFORE BEDTIME. gabapentin (NEURONTIN) 300 mg capsule Take 300 mg by mouth three times a day. FLUoxetine (PROZAC) 40 mg capsule Take 1 capsule by mouth every afternoon. losartan (COZAAR) 25 mg tablet Take 1 tablet by mouth every afternoon. ALPRAZolam (XANAX) 0.5 mg tablet Take 0.5 mg by mouth every 8 hours as needed. busPIRone (BUSPAR) 10 mg tablet Take 10 mg by mouth. buPROPion SR (WELLBUTRIN SR) 150 mg 12 hr tablet Take 1 tablet by mouth twice daily. (Patient taking differently: Take 150 mg by mouth two times a day. Taking 1 150 and one 300 once daily) ferrous sulfate 325 mg (65 mg iron) tablet Take 325 mg by mouth twice daily. No current facility-administered medications for this visit. ALLERGIES: ALLERGIES No Known Allergies VITALS: BP 102/62 Pulse 66 Temp 36.2 C (97.1 F) Resp 16 Wt 68.1 kg (150 lb 2.1 oz) LMP 12/18/2019 (Exact Date) SpO2 99% BMI 26.59 kg/m PHYSICAL EXAM: GEN: Pleasant, in no acute distress. Accompanied by her active pre-school aged son HEENT: PERRL, EOMI, conjunctiva clear. Right upper eyelid is swollen and pink, no visible pustule at lash line or palpebral conjunctiva. Right lower lid has no erythema or edema, 1-2mm clear thin papules/pustules mid inner lower lid. Sinuses: non-tender frontal sinus, non-tender maxillary sinuses Throat: moist mucous membranes, Neck: supple, ASSESSMENT/PLAN: 1. Hordeolum externum right upper eyelid - ICD9: 373.11, ICD10: H00.011 (primary diagnosis) - POLYMYXIN B SULFATE 10,000 UNIT-TRIMETHOPRIM 1 MG/ML EYE DROPS 2. Hordeolum internum right lower eyelid - ICD9: 373.12, ICD10: H00.022 Continue warm compress. She may schedule follow up with ophtho/optometry when leaving. Danny Castrejon MD documented in this encounter [facility] 08-10-2023 Note HNO ID: [id number] Author: ENMA DODGE APRN.BUNCH MAKER HAND Service: ? Author Type: Nurse Practitioner Type: Progress Notes Filed: 08/10/2023 16:57 Note Text: CC: Patient presents with: Flu Like Symptoms: RIDLEY, ST, cough, bodyaches x2 days HPI: Yamilet Rivas is a 37 year old female who presents to the office with complaint of head congestion and sore throat for a few days. Symptoms are staying the same. Associated symptoms includes headache and body aches. Denies nausea, vomiting , and diarrhea. Treatments tried include nothing so far. with no relief of symptoms. Sick contacts: unknown. History of asthma, frequent episodes of bronchitis, chronic bronchitis, bronchiectasis or COPD: No Smoker: No Seasonal/environmental allergies: No The ROS is otherwise negative. The patient's pmh, medications, allergies, and past visits are reviewed. PHYSICAL EXAM: BP 131/90 Pulse 80 Temp 36.4 ?C (97.5 ?F) Resp 18 Wt 75.5 kg (166 lb 6.4 oz) LMP 12/18/2019 (Exact Date) SpO2 98% BMI 29.48 kg/m? General appearance: alert, cooperative, pleasant, in no acute distress Head: Normocephalic Eyes: EOM's intact, conjunctiva pink and moist, no icterus, sclera white, non-injected Ears: Right ear: External ear/canal- Normal, TM - clear with good landmarks. Left ear: External ear/canal- Normal, TM - clear with good landmarks Oropharynx:moderate erythema, without exudates present Neck:mild cervical adenopathy Heart: Negative. RRR without obvious murmur, gallop, or rubs. No ectopy. Lungs: clear to auscultation, without rales or wheeze, good air exchange PAST MEDICAL HISTORY Diagnosis Date MICHA positive 10/23/2019 other serologies negative. Anxiety with depression 06/12/2015 ASCUS with positive high risk HPV cervical 2019 Lichen sclerosus 2019 Lupus anticoagulant disorder (HCC) 08/28/2019 Obesity 2000 s/p gastric sleeve 2018 affected by growth restriction 02/28/2019 PAST SURGICAL HISTORY Procedure Laterality Date COLPOSCOPY CERVIX UPPER/ADJACENT VAGINA 04/2019 x 2 COLPOSCOPY CERVIX UPPER/ADJACENT VAGINA 06/18/2019 FOOT SURGERY HX Right 03/2016 fusions,heel. Dr. Zhu, [facility]. FOOT SURGERY HX Right 09/2014 [place] [facility] FOOT SURGERY HX Right 09/2015 hardware removal LAPS SURG CHOLECYSTECTOMY W/CHOLANGIOGRAPHY 04/15/2019 [facility] SLEEVE GASTRECTOMY; OPEN 04/2018 [place] ALLERGIES Patient has no known allergies. MEDICATIONS FLUoxetine (PROZAC) 40 mg capsule Take 1 capsule by mouth every afternoon. losartan (COZAAR) 25 mg tablet Take 1 tablet by mouth every afternoon. ALPRAZolam (XANAX) 0.5 mg tablet Take 0.5 mg by mouth every 8 hours as needed. buPROPion SR (WELLBUTRIN SR) 150 mg 12 hr tablet Take 1 tablet by mouth twice daily. (Patient taking differently: Take 150 mg by mouth two times a day. Taking 1 150 and one 300 once daily) busPIRone (BUSPAR) 10 mg tablet Take 10 mg by mouth. cholecalciferol (VITAMIN D3) 50 mcg (2,000 unit) tablet Take 3 tablets by mouth once daily. (Patient not taking: Reported on 06/24/2021 ) escitalopram oxalate (LEXAPRO) 10 mg tablet Take 1 tablet by mouth once daily. (Patient not taking: Reported on 06/24/2021 ) escitalopram oxalate (LEXAPRO) 5 mg tablet Take 1 tablet by mouth once daily. (Patient not taking: Reported on 06/24/2021 ) escitalopram oxalate (LEXAPRO) 5 mg tablet Take 1 tablet by mouth once daily. for two weeks, ten may increase to two tablets daily after two weeks if needed (Patient not taking: Reported on 06/24/2021 ) ferrous sulfate 325 mg (65 mg iron) tablet Take 325 mg by mouth twice daily. cyanocobalamin, vitamin B-12, (VITAMIN B-12 ORAL) Take 1,000 mg by mouth once daily. FAMILY HISTORY Problem Relation Age of Onset Hypertension Mother Diabetes Maternal Grandmother Type II Stroke Maternal Grandmother Parkinsonism Maternal Grandmother Hypertension Maternal Grandmother Diabetes Maternal Grandfather Type II Blood Clots Maternal Grandfather Heart Maternal Grandfather Hypertension Maternal Grandfather Hypertension Paternal Grandmother COPD Paternal Grandmother Heart Paternal Grandfather A-fib Hypertension Paternal Grandfather No Known Problems Father No Known Problems Sister No Known Problems Brother Social History Tobacco Use Smoking status: Never Smokeless tobacco: Never Vaping Use Vaping Use: Never used Substance Use Topics Alcohol use: Not Currently Drug use: Never ASSESSMENT/PLAN: 1. URI, acute - ICD9: 465.9, ICD10: J06.9 (primary diagnosis) - COVID AND INFLUENZA A/B AND RSV NAAT, ROUTINE 2. Strep throat exposure - ICD9: V01.89, ICD10: Z20.818 Otc meds for symptoms. Potential red flag symptoms discussed with the patient. Reviewed appropriate action plan to take if red flag symptoms occur. Patient agreeable to treatment plan. Enma Dodge APRN.[facility] 08-10-2023 History of Presen t illness Narrative CC: Patient presents with: Flu Like Symptoms: RIDLEY, ST, cough, bodyaches x2 days HPI: September Rob is a 37 year old female who presents to the office with complaint of head congestion and sore throat for a few days. Symptoms are staying the same. Associated symptoms includes headache and body aches. Denies nausea, vomiting , and diarrhea. Treatments tried include nothing so far. with no relief of symptoms. Sick contacts: unknown. History of asthma, frequent episodes of bronchitis, chronic bronchitis, bronchiectasis or COPD: No Smoker: No Seasonal/environmental allergies: No The ROS is otherwise negative. The patient's pmh, medications, allergies, and past visits are reviewed. PHYSICAL EXAM: BP 131/90 Pulse 80 Temp 36.4 C (97.5 F) Resp 18 Wt 75.5 kg (166 lb 6.4 oz) LMP 12/18/2019 (Exact Date) SpO2 98% BMI 29.48 kg/m General appearance: alert, cooperative, pleasant, in no acute distress Head: Normocephalic Eyes: EOM's intact, conjunctiva pink and moist, no icterus, sclera white, non-injected Ears: Right ear: External ear/canal- Normal, TM - clear with good landmarks. Left ear: External ear/canal- Normal, TM - clear with good landmarks Oropharynx:moderate erythema, without exudates present Neck:mild cervical adenopathy Heart: Negative. RRR without obvious murmur, gallop, or rubs. No ectopy. Lungs: clear to auscultation, without rales or wheeze, good air exchange PAST MEDICAL HISTORY Diagnosis Date MICHA positive 10/23/2019 other serologies negative. Anxiety with depression 06/12/2015 ASCUS with positive high risk HPV cervical 2019 Lichen sclerosus 2018 Lupus anticoagulant disorder (HCC) 08/28/2019 Obesity 2000 s/p gastric sleeve 2018 affected by growth restriction 02/28/2019 PAST SURGICAL HISTORY Procedure Laterality Date COLPOSCOPY CERVIX UPPER/ADJACENT VAGINA 04/2019 x 2 COLPOSCOPY CERVIX UPPER/ADJACENT VAGINA 06/18/2019 FOOT SURGERY HX Right 03/2016 fusions,heel. Dr. Zhu, [facility]. FOOT SURGERY HX Right 09/2014 [place] [facility] FOOT SURGERY HX Right 09/2015 hardware removal LAPS SURG CHOLECYSTECTOMY W/CHOLANGIOGRAPHY 04/15/2019 [facility] SLEEVE GASTRECTOMY; OPEN 04/2018 [place] ALLERGIES Patient has no known allergies. MEDICATIONS FLUoxetine (PROZAC) 40 mg capsule Take 1 capsule by mouth every afternoon. losartan (COZAAR) 25 mg tablet Take 1 tablet by mouth every afternoon. ALPRAZolam (XANAX) 0.5 mg tablet Take 0.5 mg by mouth every 8 hours as needed. buPROPion SR (WELLBUTRIN SR) 150 mg 12 hr tablet Take 1 tablet by mouth twice daily. (Patient taking differently: Take 150 mg by mouth two times a day. Taking 1 150 and one 300 once daily) busPIRone (BUSPAR) 10 mg tablet Take 10 mg by mouth. cholecalciferol (VITAMIN D3) 50 mcg (2,000 unit) tablet Take 3 tablets by mouth once daily. (Patient not taking: Reported on 06/24/2021 ) escitalopram oxalate (LEXAPRO) 10 mg tablet Take 1 tablet by mouth once daily. (Patient not taking: Reported on 06/24/2021 ) escitalopram oxalate (LEXAPRO) 5 mg tablet Take 1 tablet by mouth once daily. (Patient not taking: Reported on 06/24/2021 ) escitalopram oxalate (LEXAPRO) 5 mg tablet Take 1 tablet by mouth once daily. for two weeks, ten may increase to two tablets daily after two weeks if needed (Patient not taking: Reported on 06/24/2021 ) ferrous sulfate 325 mg (65 mg iron) tablet Take 325 mg by mouth twice daily. cyanocobalamin, vitamin B-12, (VITAMIN B-12 ORAL) Take 1,000 mg by mouth once daily. FAMILY HISTORY Problem Relation Age of Onset Hypertension Mother Diabetes Maternal Grandmother Type II Stroke Maternal Grandmother Parkinsonism Maternal Grandmother Hypertension Maternal Grandmother Diabetes Maternal Grandfather Type II Blood Clots Maternal Grandfather Heart Maternal Grandfather Hypertension Maternal Grandfather Hypertension Paternal Grandmother COPD Paternal Grandmother Heart Paternal Grandfather A-fib Hypertension Paternal Grandfather No Known Problems Father No Known Problems Sister No Known Problems Brother Social History Tobacco Use Smoking status: Never Smokeless tobacco: Never Vaping Use Vaping Use: Never used Substance Use Topics Alcohol use: Not Currently Drug use: Never ASSESSMENT/PLAN: 1. URI, acute - ICD9: 465.9, ICD10: J06.9 (primary diagnosis) - COVID & INFLUENZA A/B & RSV NAAT, ROUTINE 2. Strep throat exposure - ICD9: V01.89, ICD10: Z20.818 Otc meds for symptoms. Potential red flag symptoms discussed with the patient. Reviewed appropriate action plan to take if red flag symptoms occur. Patient agreeable to treatment plan. Enma Dodge APRN.BUNCH MAKER HAND documented in this encounter [facility] 10-03-2022 Telephone encounter Note Last OV: 09/29/21 Next OV: n/a Pended medication for provider for review. [facility] 10-03-2022 Miscellaneous Notes Last OV: 09/29/21 Next OV: n/a Pended medication for provider for review. documented in this encounter [facility] 02-13-2022 Note ED Nursing Discharge Summary Entered On: 02/12/2022 22:22 EDT Performed On: 02/12/2022 22:19 EDT by Agnes Fritz RN [place] Information [id number] ED IV's : No IV ED IV Site Assessment : No IV ED Vitals Completed : Yes ED Final Assessment Completed : Yes ED Progress Note Completed : Yes Complete all PRN/Pain response forms? : N/A ED Disassociate Patient from Monitor : Yes Updated Depart Time : Yes Mode of Discharge : Ambulatory Discharge Transportation : Private vehicle ED Belongings sent w patient [id number] : Yes Valuables Complete : No Agnes Fritz RN - 02/12/2022 22:22 EDT Education Instructions given to : Patient TeachBack Methodology : Printed Material Barriers to Learning : None evident Agnes Fritz RN - 02/12/2022 22:22 EDT Post-Hospital Education Adult Grid Activity Expectations : Verbalizes understanding Diagnostic Results : Verbalizes understanding Disease Process : Verbalizes understanding Invasive Line Care : Verbalizes understanding Plan of Care : Verbalizes understanding When to Call Health Care Provider : Verbalizes understanding Agnes Fritz RN - 02/12/2022 22:22 EDT ED Assistance Summary Assistance Given? : No Agnes Fritz RN - 02/12/2022 22:22 EDT [facility] 02-12-2022 Note Procedure: CT Sinuse s without intravenous contrast Clinical: Clinical. Comparison: None. Technique: Axial noncontrast CT of the head and paranasal sinuses was performed. Coronal and sagittal reconstructions. DICOM images are available. One or more of the following dose reduction techniques were used: automated exposure control, adjustment of the mA and/or kV according to patient size, or use of iterative reconstruction. Findings: Maxillary sinuses: Clear. Sphenoid sinuses: Clear. Ethmoid sinuses: Clear. Frontal sinuses: There is mild periosteal mucosal thickening within the frontal sinus suggests chronic sinusitis. Frontoethmoidal recesses:Clear. Sphenoethmoidal recesses: Clear. Ostiomeatal units: Clear. Fluid levels: None. Nasal septum: There is slightly limited deviation of nasal septum Nasopharynx: Unremarkable. Nasal cavity: There is slight hypertrophy of the middle and inferior turbinates suggests an underlying rhinitis. Mastoid air cells: Clear. Orbits: Unremarkable. Visualized brain: No acute pathology. Soft tissues: The left frontal scalp sebaceous cyst. Bones: Unremarkable. Additional comment: None. Impression: 1. Mild chronic appearing frontal sinusitis. 2. No signs of displaced fracture of the facial bones. 3. Slight hypertrophy of the middle and inferior turbinates suggests an underlying rhinitis. Electronically signed by: Kisha Gruber MD 02/12/2022 8:32 PM CDT Technologist: SRIKANTH Dictated By: Stacie GRUBER MD Signed By: Stacie GRUBER MD Signed Out: 02/12/22 21:32:12 [facility] 04-14-2021 History of Presen t illness Narrative Arrival Note Infusion Patient is here for iron Labs were not ordered. 1055 Patient tolerated Injectafer infusion well. No IV related complications. Reviewed home going instructions. Patient understands s/sx adverse reaction or complication to report to MD office. Patient denies questions or concerns. She has a follow up appointment scheduled with Dr. Whitten and understands to have labs drawn prior to that appt. documented in this encounter [facility] Work Phone: 04-01-2021 History of Presen t illness Narrative Arrival Note Infusion Patient is here for iron Labs were not ordered. 1020 Patient tolerated Injectafer infusion well. No IV related complications. Reviewed home going instructions. Patient understands s/sx adverse reaction or complication to report to MD office. Patient denies questions or concerns. AVS signed. She has appointments and lab requisitions for labs to be drawn prior to her office visit 05/12/21. documented in this encounter [facility] Work Phone: Evaluation note Diagnosis Iron deficiency anemia due to dietary causes- Primary Iron deficiency anemia secondary to inadequate dietary iron intake Malabsorption of iron Other specified intestinal malabsorption documented in this encounter [facility] Work Phone: Evaluation note* Diagnosis Iron deficiency anemia due to dietary causes- Primary Iron deficiency anemia secondary to inadequate dietary iron intake Malabsorption of iron Other specified intestinal malabsorption documented in this encounter [facility] Work Phone: Evaluation note* Diagnosis URI, acute- Primary Acute upper respiratory infections of unspecified site Strep throat exposure Contact with or exposure to other communicable diseases documented in this encounter [facility] note* Diagnosis Hordeolum externum right upper eyelid- Primary Hordeolum internum right lower eyelid [facility] Diagnosis Vulvar lesion- Primary Other specified noninflammatory disorder of vulva and perineum Screen for STD (sexually transmitted disease) Screening examination for venereal disease Vaginal discharge Leukorrhea, not specified as infective Vulvar pain Unspecified symptom associated with female genital organs documented in this encounter [facility] note* Diagnosis Vulvar lesion Other specified noninflammatory disorder of vulva and perineum documented in this encounter [facility] note* Diagnosis Vulvar lesion Other specified noninflammatory disorder of vulva and perineum documented in this encounter [facility] note* Diagnosis 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 * ferric carboxymaltose (Czech) documented in this [facility] Work Phone: Reason for visit Narrative* Treatment Plan and Therapy Plan (Routine) Status Reason Specialty Diagnoses / Procedures Referred By Contact Referred To Contact Authorized Diagnoses Iron deficiency anemia due to dietary causes Malabsorption of iron Phoebe Whitten DO [address] [place] [address] [facility] [address] [place] [address] [facility] Work Phone: Summary Purpose Family History Brother (s) Status:Active Comments:1. In g ood health. Father Status:Active Comments:In good health. Mother Status:Active Comments:In good health. Hypertension. Sister (s) Status:Active Comments:In good health. 1. Brother (s) Status:Active Comments:1. In g ood health. Father Status:Active Comments:In good health. Mother Status:Active Comments:In good health. Hypertension. Sister (s) Status:Active Comments:In good health. 1. Brother (s) Status:Active Comments:1. In g ood health. Father Status:Active Comments:In good health. Mother Status:Active Comments:In good health. Hypertension. Sister (s) Status:Active Comments:In good health. 1. Brother (s) Status:Active Comments:1. In g ood health. Father Status:Active Comments:In good health. Mother Status:Active Comments:In good health. Hypertension. Sister (s) Status:Active Comments:In good health. 1. Brother (s) Status:Active Comments:1. In g ood health. Father Status:Active Comments:In good health. Mother Status:Active Comments:In good health. Hypertension. Sister (s) Status:Active Comments:In good health. 1. Brother (s) Status:Active Comments:1. In g ood health. Father Status:Active Comments:In good health. Mother Status:Active Comments:In good health. Hypertension. Sister (s) Status:Active Comments:In good health. 1. Brother (s) Status:Active Comments:1. In ood health. Father Status:Active Comments:In good health. Mother Status:Active Comments:In good health. Hypertension. Sister (s) Status:Active Comments:In good health. 1. Brother (s) Status:Active Comments:1. In g ood health. Father Status:Active Comments:In good health. Mother Status:Active Comments:In good health. Hypertension. Sister (s) Status:Active Comments:In good health. 1. Brother (s) Status:Active Comments:1. In g ood health. Father Status:Active Comments:In good health. Mother Status:Active Comments:In good health. Hypertension. Sister (s) Status:Active Comments:In good health. 1. Brother (s) Status:Active Comments:1. In g ood health. Father Status:Active Comments:In good health. Mother Status:Active Comments:In good health. Hypertension. Sister (s) Status:Active Comments:In good health. 1. Brother (s) Status:Active Comments:1. In g ood health. Father Status:Active Comments:In good health. Mother Status:Active Comments:In good health. Hypertension. Sister (s) Status:Active Comments:In good health. 1. Brother (s) Status:Active Comments:1. In g ood health. Father Status:Active Comments:In good health. Mother Status:Active Comments:In good health. Hypertension. Sister (s) Status:Active Comments:In good health. 1. Brother (s) Status:Active Comments:1. In g ood health. Father Status:Active Comments:In good health. Mother Status:Active Comments:In good health. Hypertension. Sister (s) Status:Active Comments:In good health. 1. Brother (s) Status:Active Comments:1. In g ood health. Father Status:Active Comments:In good health. Mother Status:Active Comments:In good health. Hypertension. Sister (s) Status:Active Comments:In good health. 1. Brother (s) Status:Active Comments:1. In g ood health. Father Status:Active Comments:In good health. Mother Status:Active Comments:In good health. Hypertension. Sister (s) Status:Active Comments:In good health. 1. Brother (s) Status:Active Comments:1. In g ood health. Father Status:Active Comments:In good health. Mother Status:Active Comments:In good health. Hypertension. Sister (s) Status:Active Comments:In good health. 1. Brother (s) Status:Active Comments:1. In g ood health. Father Status:Active Comments:In good health. Mother Status:Active Comments:In good health. Hypertension. Sister (s) Status:Active Comments:In good health. 1. Brother (s) Status:Active Comments:1. In g ood health. Father Status:Active Comments:In good health. Mother Status:Active Comments:In good health. Hypertension. Sister (s) Status:Active Comments:In good health. 1. Brother (s) Status:Active Comments:1. In g ood health. Father Status:Active Comments:In good health. Mother Status:Active Comments:In good health. Hypertension. Sister (s) Status:Active Comments:In good health. 1. Brother (s) Status:Active Comments:1. In g ood health. Father Status:Active Comments:In good health. Mother Status:Active Comments:In good health. Hypertension. Sister (s) Status:Active Comments:In good health. 1. Brother (s) Status:Active Comments:1. In g ood health. Father Status:Active Comments:In good health. Mother Status:Active Comments:In good health. Hypertension. Sister (s) Status:Active Comments:In good health. 1. Brother (s) Status:Active Comments:1. In g ood health. Father Status:Active Comments:In good health. Mother Status:Active Comments:In good health. Hypertension. Sister (s) Status:Active Comments:In good health. 1. Advance Directives No Advanced Directives Records FoundNo Advanced Directives Records FoundNo Advanced Directives Records FoundNo Advanced Directives Records FoundNo Advanced Directives Records FoundNo Advanced Directives Records FoundNo Advanced Directives Records FoundNo Advanced Directives Records Found Health Concerns Infection Onset Date Last Indicated Resolved Time COVID-19 Rule-Out 08/10/2023 08/10/2023 Additional Source Comments INFORMATION SOURCE (unrecogn ized section and content) DATE CREATED AUTHOR 12/27/2017 [facility] ([place]) DATE CREATED AUTHOR AUTHOR'S ORGANIZ ATION 03/17/2019 [facility] DATE CREATED AUTHOR AUTHOR'S ORGANIZ ATION 08/28/2019 [facility] DATE CREATED AUTHOR AUTHOR'S ORGANIZ ATION 08/28/2019 [facility] DATE CREATED AUTHOR AUTHOR'S ORGANIZ ATION 02/06/2021 [facility] DATE CREATED AUTHOR AUTHOR'S ORGANIZ ATION 02/12/2022 [facility] DATE CREATED AUTHOR AUTHOR'S ORGANIZ ATION 10/04/[address] [facility] DATE CREATED AUTHOR AUTHOR'S ORGANIZ ATION 04/16/2024 [facility] Reason for Visit (unrecogniz ed section and content) Reason Comments Med Refill Reason Comments Flu Like Symptoms RIDLEY, ST, cough, bodya ches x2 days Reason Comments Eye Problem right eyelid redness and swelling x 5-6 days Reason Comments New Patient Lichens flare up? Reason Comments Results Reason Onset Date Comments Refill Request 03/28/2024 Reason Comments Pain Reason Onset Date Comments Refill Request 04/05/2024 Reason Comments Vaginal Problem HSV Has spread? Reason Comments Follow Up Care Teams (unrecognized sec tion and content) Floral Merchandiser Relationship Specialty Start Date End Date Jenni Echeverria MD [address] [facility] [address] [place], [place] [id number] PCP - General 03/10/21 Floral Merchandiser Relationship Specialty [place] [address] [place] [id number] PCP - General Family Medicine 01/16/24 Floral Merchandiser Relationship Specialty [place] [address] [place] [id number] PCP - General Family Medicine 01/16/24 Floral Merchandiser Relationship Specialty [place] [address] [place] [id number] PCP - General Family Medicine 01/16/24 Floral Merchandiser Relationship Specialty [place] [address] [place] [id number] PCP - General Family Medicine 01/16/24 Floral Merchandiser Relationship Specialty [place] [address] [place] [id number] PCP - General Family Medicine 01/16/24 Source Comments (unrecognize d section and content) In the event this informatio n is protected by the [facility] Confidentiality of Alcohol and Drug Abuse Patient Records regulations: The Federal rules restrict any use of the information to criminally investigate or prosecute any alcohol or drug abuse patient.[facility] the event this information is protected by the Federal Confidentiality of Alcohol and Drug Abuse Patient Records regulations: The Federal rules restrict any use of the information to criminally investigate or prosecute any alcohol or drug abuse patient.[facility] the event this information is protected by the Federal Confidentiality of Alcohol and Drug Abuse Patient Records regulations: The Federal rules restrict any use of the information to criminally investigate or prosecute any alcohol or drug abuse patient.[facility] the event this information is protected by the Federal Confidentiality of Alcohol and Drug Abuse Patient Records regulations: The Federal rules restrict any use of the information to criminally investigate or prosecute any alcohol or drug abuse patient.[facility] the event this information is protected by the Federal Confidentiality of Alcohol and Drug Abuse Patient Records regulations: The Federal rules restrict any use of the information to criminally investigate or prosecute any alcohol or drug abuse patient.[facility] System[facility] the event this information is protected by the Federal Confidentiality of Alcohol and Drug Abuse Patient Records regulations: The Federal rules restrict any use of the information to criminally investigate or prosecute any alcohol or drug abuse patient.[facility] the event this information is protected by the Federal Confidentiality of Alcohol and Drug Abuse Patient Records regulations: The Federal rules restrict any use of the information to criminally investigate or prosecute any alcohol or drug abuse patient.[facility] the event this information is protected by the Federal Confidentiality of Alcohol and Drug Abuse Patient Records regulations: The Federal rules restrict any use of the information to criminally investigate or prosecute any alcohol or drug abuse patient.[facility] the event this information is protected by the Federal Confidentiality of Alcohol and Drug Abuse Patient Records regulations: The Federal rules restrict any use of the information to criminally investigate or prosecute any alcohol or drug abuse patient.[facility] FOR RECORDS PERTAINING TO PATIENTS WHO ARE OR HAVE BEEN ENROLLED IN A CHEMICAL DEPENDENCY/SUBSTANCEABUSE PROGRAM, SOME INFORMATION MAY BE OMITTED. This clinical summary was aggregated from multiple sources. Caution should be exercised in using it in the provision of clinical care. This summary normalizes information from multiple sources, and as a consequence, information in this document may materially change the coding, format and clinical context of patient data. In addition, data may be omitted in some cases. CLINICAL DECISIONS SHOULD BE BASED ON THE PRIMARY CLINICAL RECORDS. [facility] [employer] [facility]. provides no warranty or guarantee of the accuracy or completeness of information in this document.
[2024-05-02 22:01] VITALS: BP 134/77; PULSE 89; RESP 15; TEMP 37.1; O2SAT 97
[2024-05-02] MEDS: Prazosin HCl 1 MG Capsule PO (22:04)
[2024-05-03 02:55] VITALS: BP 126/84; PULSE 79; RESP 15; TEMP 36.6; O2SAT 98
[2024-05-03] MEDS: Phenobarbital 32.4 MG Tablet 64.8 MG PO ×6 (02:57→22:56)
[2024-05-03 06:25] LABS: Anion Gap 6 (5-15); BUN 8 mg/dL (7-18); BUN/Creat Ratio 9.6 RATIO (10-20); Calcium,Total 8.6 mg/dL (8.5-10.1); Chloride 108 mmol/L (98-107); Creatinine, Serum 0.84 mg/dL (0.55-1.02); EST Glomerular Filtration Rate 80 mL/min (>60); Est Glom Filt Rate - Afr Amer 97 mL/min (>60); Estimated Creatinine Clearance 80.43 ml/min; Glucose 83 mg/dL (74-106); Magnesium 2.3 mg/dL (1.6-2.6); Phosphorus 3.7 mg/dL (2.5-4.9); Potassium 3.3 mmol/L (3.5-5.1); Sodium Level 139 mmol/L (136-145)
--- NOTE | 2024-05-03 07:06 | PCM.PN.HOSP ---
Reason for Visit Reason for Visit: Diagnoses Hypokalemia (05/02/24) Sedative, hypnotic or anxiolytic abuse, uncomplicated (05/02/24) Other psychoactive substance use, unspecified with withdrawal, unspecified (05/02/24) Unspecified convulsions (05/02/24) Other specified abnormal findings of blood chemistry (05/02/24) Subjective Subjective Feeling much better today, no further seizure-like activity, feels a little bit shaky but better than usual, no other new or acute complaints Objective Data Objective Data Vital Signs: Vital Signs Temp Pulse Resp BP Pulse Ox O2 Del Method 97.9 F 79 15 126/84 H 98 Room Air 05/03/24 02:55 05/03/24 02:55 05/03/24 02:55 05/03/24 02:55 05/03/24 02:55 05/03/24 05:00 Oxygen Delivery Method Room Air Weight: 63.049 kg Body Mass Index (BMI) 24.6 Intake & Output: Intake and Output for Last 24 Hours 05/01/24 05/02/24 05/03/24 23:59 23:59 23:59 Intake Total 1100 / 1100 1000 / 1000 Balance 1100 / 1100 1000 / 1000 Lab / Micro Data 05/02/24 14:40 05/03/24 05:39 Labs: Laboratory Results - last 24 hr 05/02/24 14:40: WBC 8.3, RBC 4.50, Hgb 12.6, Hct 37.3, MCV 82.9, MCH 28.0, MCHC 33.8, RDW Std Deviation 48.0 H, RDW Coeff of Nadya 15.9 H, Plt Count 286, MPV 10.3, Immature Gran % (Auto) 0.400, Neut % (Auto) 81.1 H, Lymph % (Auto) 12.4 L, [place] % (Auto) 5.5, Eos % (Auto) 0.5, Baso % (Auto) 0.1, Absolute Neuts (auto) 6.8, Absolute Lymphs (auto) 1.03, Nucleated RBC % 0, Sodium 139, Potassium 3.0 L, Chloride 107, Carbon Dioxide 21.0, Anion Gap 11, BUN 8, Creatinine 1.25 H, Estim Creat Clear Calc 54.87, Est GFR (MDRD) Af Amer 61, Est GFR (MDRD) Non-Af 51 L, BUN/Creatinine Ratio 6.4 L, Glucose 148 H, Calcium 9.3, Magnesium 2.1, Troponin I High Sens 5, Serum , Qual NEGATIVE 05/02/24 15:42: Urine Color Yellow, Urine Clarity Clear, Urine pH 6.0, Ur Specific Mountain 1.025, Urine Protein 30 H, Urine Glucose (UA) Normal, Urine Ketones 15 H, Urine Occult Blood 25 H, Urine Nitrite Negative, Urine Bilirubin Negative, Urine Urobilinogen Normal, Ur Leukocyte Esterase 100 H, Urine RBC 0 SEEN, Urine WBC 0-5 SEEN, Ur Squamous Epith Cells 0-5 SEEN, Amorphous Sediment 1+, Urine Bacteria 0 SEEN, Urine Mucus 0 SEEN 05/03/24 05:39: Sodium 139, Potassium 3.3 L, Chloride 108 H, Carbon Dioxide 26.0, Anion Gap 6, BUN 8, Creatinine 0.84, Estim Creat Clear Calc 80.43, Est GFR (MDRD) Af Amer 97, Est GFR (MDRD) Non-Af 80, BUN/Creatinine Ratio 9.6 L, Glucose 83, Calcium 8.6, Phosphorus 3.7, Magnesium 2.3 Radiography Diagnostic Testing: Radiology Impression Brain CT 05/02/24 14:33 IMPRESSION: Normal unenhanced CT scan of the brain. Electronically Signed: Jarred Low MD at 15:20 EST Reading Location ID and State: [address] [place] [address] , Service support , Physical Exam Narrative General: Alert, oriented, no apparent distress HEENT: Atraumatic, normocephalic Eyes: Anicteric, normal conjunctiva, extraocular movements grossly intact Neck: Supple Respiratory: Clear to auscultation bilaterally, normal respiratory effort Cardiovascular: Regular rate and rhythm GI: Soft, nontender, nondistended Extremities: No edema Musculoskeletal: Moving all extremities Neuro: No overt focal neurological deficits Skin: No rashes appreciated Psych: Cooperative Assessment & Plan Assessment/Plan (1) Benzodiazepine abuse: (2) Drug withdrawal seizure: PLAN: Plan # Benzodiazepine abuse/withdrawal - We will begin CIWA every 4 for 24 hours, then every 6 for 24 hours, then every 12 until discharge -Will begin phenobarbital taper -Gabapentin 300 mg every 8 as needed -Will start Bentyl and hydroxyzine as needed as well as loperamide as needed -Trazodone 100 mg p.o. nightly as needed sleep -Zofran as needed for nausea -Case management consult to assist with discharge planning -EtOH negative -UDS MDMA (likely from Wellbutrin) and benzodiazepines # Benzodiazepine withdrawal seizure -Withdrawal seizure yesterday after stopping Xanax -On phenobarb taper -2 mg of IV Ativan x 1 for seizure activity #Hypokalemia -Replace -Repeat in the AM #Depression/anxiety -Continue home medications # Elevated creatinine -Creatinine 1.25 yesterday, today down to 0.84, unclear etiology -?Secondary to increased stress on her body due to seizure -Given return to baseline no further workup at this time #DVT ppx: Low risk, ambulatory Kay Marley MD Charges/Coding Visit Charges Inpatient E&M: 82817 Subs Hosp L1
[2024-05-03] MEDS: Thiamine Hydrochloride 100 MG Tablet PO (07:30)
[2024-05-03] MEDS: buPROPion (XL) 300 MG TABLET.XL PO (07:30)
[2024-05-03] MEDS: Folic Acid 1 MG Tablet PO (07:30)
[2024-05-03] MEDS: Acyclovir 200 MG Capsule 400 MG PO ×2 (07:30→22:56)
[2024-05-03] MEDS: buPROPion (XL) 150 MG TABLET.XL PO (07:30)
[2024-05-03] MEDS: Ensure Plus High Protein 120 ML LIQUID PO (07:33)
[2024-05-03 08:13] VITALS: BP 111/69; PULSE 76; RESP 16; TEMP 36.8; O2SAT 98
[2024-05-03] MEDS: FLU VACC 2024-25(6MOS UP)/PF 45 MCG/0.5 ML SYRINGE IM (09:34)
[2024-05-03] MEDS: Acetaminophen 325 MG Tablet 650 MG PO (10:46)
[2024-05-03 10:48] VITALS: BP 118/68; PULSE 87; RESP 16; TEMP 36.9; O2SAT 99
--- NOTE | 2024-05-03 13:04 | CHAPLAIN ---
Type of Pastoral Visit _x__ Initial Visit ___ Follow-up Visit ___ On-call Visit ___ General Patient Visit ___ Spiritual Assessment ___ Family Conference ___ Bereavement ___ Rapid Response ___ Code Blue ___ Other (describe below) Pastoral Care Referral From _x__ Patient ___ Family ___ Nurse ___ Physician ___ Marine Welder ___ Tool Maker Apprentice ___ Other (describe below) Sacrament/Intervention __x_ Active listening ___ Anointing ___ Buddhism ___ Bereavement ___ Communion _x__ Daniella exploration ___ _x__ Life review _x__ Prayer ___ Reconciliation ___ Sacrament of Sick _x__ Supportive presence ___ Wedding ___ Other (describe below) Pastoral Comments patient is open about her struggles and the situation she is in; pt wants to be clean and to have ability to be the best Mom she can be to her two young boys; pt has family support; pt admits that the process in the [facility] program is difficult but that she is thankful that she made this choice; pt is talkative and answers questions that are asked to define more of her feelings and needs; pt is not connected to a daniella community but states that she prays on her own and would welcome a prayer for support for this occasion
--- NOTE | 2024-05-03 14:06 | ADDICTION ---
This manual writer met with PT to conduct ASAM, MSE, AUDIT, DUDIT assessments and to plan for d/c. PT A+Ox4 and participated actively. All assessments completed. PT plans to f/u with [facility] for follow-up intensive outpatient treatment services on 05/07 @2:00pm.
[2024-05-03 14:59] VITALS: BP 125/99; PULSE 77; RESP 16; TEMP 36.7; O2SAT 99
[2024-05-03 21:00] VITALS: BP 120/82; PULSE 63; RESP 15; TEMP 36.8; O2SAT 98
[2024-05-03] MEDS: Prazosin HCl 1 MG Capsule PO (23:00)
[2024-05-04] MEDS: Phenobarbital 32.4 MG Tablet 64.8 MG PO ×6 (02:52→22:22)
[2024-05-04 06:09] LABS: Anion Gap 6 (5-15); BUN 8 mg/dL (7-18); BUN/Creat Ratio 9.8 RATIO (10-20); Calcium,Total 8.3 mg/dL (8.5-10.1); Chloride 108 mmol/L (98-107); Creatinine, Serum 0.81 mg/dL (0.55-1.02); EST Glomerular Filtration Rate 83 mL/min (>60); Est Glom Filt Rate - Afr Amer 101 mL/min (>60); Estimated Creatinine Clearance 83.41 ml/min; Glucose 84 mg/dL (74-106); Sodium Level 140 mmol/L (136-145)
[2024-05-04 06:53] VITALS: BP 118/82; PULSE 67; RESP 15; TEMP 36.8; O2SAT 97
[2024-05-04] MEDS: Ensure Plus High Protein 120 ML LIQUID PO ×3 (08:23→17:58)
[2024-05-04] MEDS: Folic Acid 1 MG Tablet PO (08:23)
[2024-05-04] MEDS: Thiamine Hydrochloride 100 MG Tablet PO (08:23)
[2024-05-04] MEDS: buPROPion (XL) 150 MG TABLET.XL PO (08:24)
[2024-05-04] MEDS: Acyclovir 200 MG Capsule 400 MG PO ×2 (08:25→22:22)
[2024-05-04] MEDS: buPROPion (XL) 300 MG TABLET.XL PO (08:25)
[2024-05-04] MEDS: Potassium Chloride Oral Tablet 20 MEQ 60 MEQ PO (08:28)
[2024-05-04 09:00] VITALS: BP 115/80; PULSE 82; RESP 14; TEMP 37; O2SAT 97
--- NOTE | 2024-05-04 10:38 | PCM.PN.HOSP ---
Reason for Visit Reason for Visit: Diagnoses Hypokalemia (05/02/24) Sedative, hypnotic or anxiolytic abuse, uncomplicated (05/02/24) Other psychoactive substance use, unspecified with withdrawal, unspecified (05/02/24) Unspecified convulsions (05/02/24) Other specified abnormal findings of blood chemistry (05/02/24) Subjective Subjective Feeling fair, less shaky Objective Data Objective Data Vital Signs: Vital Signs Temp Pulse Resp BP Pulse Ox O2 Del Method 98.3 F 67 15 118/82 H 97 Room Air 05/04/24 06:53 05/04/24 06:53 05/04/24 06:53 05/04/24 06:53 05/04/24 06:53 05/04/24 06:53 Oxygen Delivery Method Room Air Weight: 63.049 kg Body Mass Index (BMI) 24.6 Intake & Output: Intake and Output for Last 24 Hours 05/02/24 05/03/24 05/04/24 23:59 23:59 23:59 Intake Total 1100 / 1100 1600 / 1600 Balance 1100 / 1100 1600 / 1600 Lab / Micro Data 05/02/24 14:40 05/04/24 05:23 Labs: Laboratory Results - last 24 hr 05/04/24 05:23: Sodium 140, Potassium 3.0 L, Chloride 108 H, Carbon Dioxide 26.0, Anion Gap 6, BUN 8, Creatinine 0.81, Estim Creat Clear Calc 83.41, Est GFR (MDRD) Af Amer 101, Est GFR (MDRD) Non-Af 83, BUN/Creatinine Ratio 9.8 L, Glucose 84, Calcium 8.3 L Physical Exam Narrative General: Alert, oriented, no apparent distress HEENT: Atraumatic, normocephalic Eyes: Anicteric, normal conjunctiva, extraocular movements grossly intact Neck: Supple Respiratory: Clear to auscultation bilaterally, normal respiratory effort Cardiovascular: Regular rate and rhythm GI: Soft, nontender, nondistended Extremities: No edema Musculoskeletal: Moving all extremities Neuro: No overt focal neurological deficits Skin: No rashes appreciated Psych: Cooperative Assessment & Plan Assessment/Plan (1) Benzodiazepine abuse: (2) Drug withdrawal seizure: PLAN: Plan # Benzodiazepine abuse/withdrawal - We will begin CIWA every 4 for 24 hours, then every 6 for 24 hours, then every 12 until discharge -Will begin phenobarbital taper -Gabapentin 300 mg every 8 as needed -Will start Bentyl and hydroxyzine as needed as well as loperamide as needed -Trazodone 100 mg p.o. nightly as needed sleep -Zofran as needed for nausea -Case management consult to assist with discharge planning -EtOH negative -UDS MDMA (likely from Wellbutrin) and benzodiazepines -05/04: Patient only on day 2 of taper, especially given she had multiple withdrawal seizures prior to arrival feel is reasonable to monitor for another day with further doses of phenobarb and consider DC tomorrow if patient doing well, patient agreeable # Benzodiazepine withdrawal seizure -Withdrawal seizure yesterday after stopping Xanax -On phenobarb taper -2 mg of IV Ativan x 1 for seizure activity -05/04: No further seizure-like activity #Hypokalemia -Replace -Repeat in the AM -05/04: Unclear etiology of hypokalemia, repeat in the a.m., may need to temporarily go out on potassium supplementation and further workup and monitoring with outpatient provider Chronic medical problems: #Depression/anxiety -Continue home medications # Elevated creatinine -Creatinine 1.25 yesterday, today down to 0.84, unclear etiology -?Secondary to increased stress on her body due to seizure -Given return to baseline no further workup at this time #DVT ppx: Low risk, ambulatory Kay Marley MD Charges/Coding Visit Charges Inpatient E&M: 55616 Subs Hosp L1
[2024-05-04 15:03] VITALS: BP 124/86; PULSE 73; RESP 19; TEMP 36.7; O2SAT 97
[2024-05-04 22:17] VITALS: BP 123/85; PULSE 68; RESP 16; TEMP 36.8; O2SAT 98
[2024-05-04] MEDS: Acetaminophen 325 MG Tablet 650 MG PO (22:22)
[2024-05-04] MEDS: Prazosin HCl 1 MG Capsule PO (22:22)
[2024-05-05] MEDS: Phenobarbital 32.4 MG Tablet 64.8 MG PO ×2 (02:48→08:50)
[2024-05-05 02:53] VITALS: BP 106/62; PULSE 61; RESP 15; TEMP 36.7; O2SAT 97
[2024-05-05 06:50] LABS: Anion Gap 5 (5-15); BUN 11 mg/dL (7-18); BUN/Creat Ratio 15.4 RATIO (10-20); Calcium,Total 8.5 mg/dL (8.5-10.1); Chloride 106 mmol/L (98-107); Creatinine, Serum 0.71 mg/dL (0.55-1.02); EST Glomerular Filtration Rate 97 mL/min (>60); Est Glom Filt Rate - Afr Amer 117 mL/min (>60); Estimated Creatinine Clearance 95.15 ml/min; Glucose 81 mg/dL (74-106); Potassium 3.4 mmol/L (3.5-5.1); Sodium Level 137 mmol/L (136-145)
[2024-05-05 08:00] VITALS: PULSE 77; RESP 18; O2SAT 99
[2024-05-05] MEDS: Folic Acid 1 MG Tablet PO (08:28)
[2024-05-05] MEDS: Thiamine Hydrochloride 100 MG Tablet PO (08:28)
[2024-05-05 08:53] VITALS: BP 131/82; PULSE 77; RESP 18; TEMP 36.6; O2SAT 99
[2024-05-05] MEDS: buPROPion (XL) 300 MG TABLET.XL PO (09:29)
[2024-05-05] MEDS: Acyclovir 200 MG Capsule 400 MG PO (09:29)
[2024-05-05] MEDS: Potassium Chloride Oral Tablet 20 MEQ 40 MEQ PO (09:29)
[2024-05-05] MEDS: buPROPion (XL) 150 MG TABLET.XL PO (09:29)
--- NOTE | 2024-05-05 12:45 | PCM.DC ---
Discharge Instructions Diet Discharge Diet: No restrictions DC O2, CPAP, BIPAP needs Additional Home O2 Discharge instructions: No Dressing / Incision Discharge Activity: - (-Recommend avoiding driving until following up/discussion with your primary care physician ) Follow Up Care Test Results: Test results from this visit will be discussed in further detail at your follow-up appointment, if applicable. Discharge Plan Admission Admit Date/Time: 05/02/24 16:03 Primary Reason for Your Visit: Benzodiazepine withdrawal seizures and detox Attending Provider: Kay Marley Primary Care Provider: Cesario Topete Consulting Providers: Rebecca Aviles Instructions Patient Instructions: ED Benzodiazepine Withdrawal Additional Instructions / Restrictions: -Your potassium has been persistently low, you will be discharged on 10 mill equivalents of potassium daily, this will likely not be a long-term medication. This was sent to your preferred pharmacy on file -Would recommend lab work (BMP) to check your potassium in 2 to 3 days through your primary care physician's office. Please call their office upon discharge to obtain order for lab work. They can further determine your need for more or less potassium supplementation moving forward f/u with [facility] for follow-up intensive outpatient treatment services on 05/07 @2:00pm. -Recommend avoiding driving until following up/discussion with your primary care physician given your xanax withdrawal seizures -Please call your primary care provider's office upon discharge to schedule a hospital follow up within 1 week. -For any concerning signs or symptoms please call 911 or proceed to the nearest emergency department Discharge Orders/Prescriptions Prescriptions: New potassium chloride 10 mEq Tablet,Er Particles/Crystals 10 meq PO DAILYCM 14 Days Qty: 14 0RF Continued propranolol 10 mg tablet 10 mg PO BID PRN (Reason: anxiety) valacyclovir 1 gram tablet 1,000 mg PO DAILY prazosin 1 mg capsule 1 mg PO QPM bupropion HCl 150 mg tablet extended release 24 hr 150 mg PO DAILY Rx Instructions: take one 150mg tablet and one 300mg tablet to equal 450mg dose bupropion HCl 300 mg tablet extended release 24 hr 300 mg PO DAILY Rx Instructions: take one 150mg tablet and one 300mg tablet to equal 450mg dose clobetasol 0.05 % cream 1 applic TOPICAL BID hydroxyzine pamoate 25 mg capsule 50 mg PO TID PRN (Reason: Anxiety) Held fluoxetine 20 MG capsule 80 mg PO DAILY Hold Instructions: Resume on 05/10/24. Until able to be resumed on outpatient basis Discontinued alprazolam 0.5 mg tablet 0.5 mg PO Q8H PRN (Reason: anxiety) Referrals / Follow Up: Cesario Topete MD [Primary Care Provider] - Within 1 Week Disposition Disposition (needs filled in before D/C Order can be placed): Home, Self Care
--- NOTE | 2024-05-05 13:03 | DS.PCM_ITS ---
Providers Date of Admission: 05/02/24 Date of Discharge: 05/05/24 Primary Care Physician: Dr. Cesario Topete MD Reason For Visit: BENZO WITHDRAWAL SEIZURE/BENZO DETOX Diagnosis Discharge Diagnosis (1) Benzodiazepine abuse: Status: Acute Code(s): F13.10 - Sedative, hypnotic or anxiolytic abuse, uncomplicated (2) Drug withdrawal seizure: Status: Acute Code(s): F19.939 - Other psychoactive substance use, unspecified with withdrawal, unspecified; R56.9 - Unspecified convulsions Plan # Benzodiazepine abuse/withdrawal # Benzodiazepine withdrawal seizure #Hypokalemia #Depression/anxiety # Elevated creatinine resolved Medications at Discharge Home Medications fluoxetine 20 mg capsule 80 mg PO DAILY depression 05/23/18 prazosin 1 mg capsule 1 mg PO QPM INSOMNIA 05/01/24 propranolol 10 mg tablet 10 mg PO BID PRN anxiety 05/01/24 valacyclovir 1 gram tablet 1,000 mg PO DAILY ANTIVIRAL 05/01/24 bupropion HCl 150 mg 24 hr tablet, extended release 150 mg PO DAILY mood 05/02/24 bupropion HCl 300 mg 24 hr tablet, extended release 300 mg PO DAILY mood 05/02/24 clobetasol 0.05 % topical cream 1 applic topical BID FLARE 05/02/24 hydroxyzine pamoate 25 mg capsule 50 mg PO TID PRN Anxiety 05/02/24 potassium chloride 10 mEq tablet,extended release(part/cryst) 10 meq PO DAILYCM 14 days #14 tabs 05/05/24 Hospital Course Summary of Care Provided Minutes Spent on Discharge: 24 Hospital Course: 38-year-old female history of depression and anxiety and benzodiazepine abuse presented [facility] ED 05/02/2024 due to benzodiazepine withdrawal seizure. She had been using 6 to 8 mg of Xanax daily but when trying to taper herself down she wanted to get off benzodiazepines completely. She did a very rapid taper and her last dose prior to arrival was 1 mg the day before, she was at [facility] for treatment of her benzodiazepine abuse and had a seizure during intake. Patient was brought to the hospital for detox and was placed on phenobarb taper. Patient did very well and had no further seizure-like activity. Symptoms significantly improved and she completed a satisfactory amount of the taper. Patient had no new or acute complaints on day of discharge and was discharged home in stable condition. Of note during her hospitalization her potassium was persistently low, given she had replacement every day she will be discharged on 10 mill equivalents of potassium and instructed to follow-up with her PCP for lab work and further instructions regarding potassium supplementation and workup if applicable. D/c instructions as followed: -Your potassium has been persistently low, you will be discharged on 10 mill equivalents of potassium daily, this will likely not be a long-term medication. This was sent to your preferred pharmacy on file -Would recommend lab work (BMP) to check your potassium in 2 to 3 days through your primary care physician's office. Please call their office upon discharge to obtain order for lab work. They can further determine your need for more or less potassium supplementation moving forward f/u with [facility] for follow-up intensive outpatient treatment services on 05/07 @2:00pm. -Recommend avoiding driving until following up/discussion with your primary care physician given your xanax withdrawal seizures -Please call your primary care provider's office upon discharge to schedule a hospital follow up within 1 week. -For any concerning signs or symptoms please call 911 or proceed to the nearest emergency department Physical Exam Narrative General: Alert, oriented, no apparent distress HEENT: Atraumatic, normocephalic Eyes: extraocular movements grossly intact Neck: Supple Respiratory: normal respiratory effort Cardiovascular: no edema appreciated GI: nondistended Extremities: Moving all extremities Neuro: No overt focal neurological deficits Psych: Cooperative Weight / BMI Weight Weight: 63.049 kg Body Mass Index (BMI) 24.6 ABG / Lab / Microbiology Data 05/02/24 14:40 05/05/24 05:35 Laboratory: Laboratory Results - last 24 hr 05/05/24 05:35: Sodium 137, Potassium 3.4 L, Chloride 106, Carbon Dioxide 26.0, Anion Gap 5, BUN 11, Creatinine 0.71, Estim Creat Clear Calc 95.15, Est GFR (MDRD) Af Amer 117, Est GFR (MDRD) Non-Af 97, BUN/Creatinine Ratio 15.4, Glucose 81, Calcium 8.5 D/C Instructions Discharge Diet: No restrictions DC O2, CPAP, BIPAP Needs Additional Home O2 Discharge instructions: No DC home with Oxygen: No Meaningful Use Info Meaningful Use Meaningful Use Diagnoses (Choose all that apply): None applicable Ischemic Stroke Statin Dosing Therapy Reference: STATIN DOSE THERAPY REFERENCE: * Patients > 75 years receive moderate or high dose statin therapy. * Patients 75 years or YOUNGER should receive HIGH intensity statin dose unless contraindicated. You will be required to document reason for non-treatment if statin daily dose does not meet guidelines. HIGH DOSE STATIN THERAPY DAILY Atorvastatin > than or = to 40 mg Rosuvastatin > than or = to 20 mg Amlodipine + Atorvastatin > than or = to 2.5/40 mg Ezetimibe + Simvastatin 10/80 mg Simvastatin 80mg Discharge Plan Admission Admit Date/Time: 05/02/24 16:03 Primary Reason for Your Visit: Benzodiazepine withdrawal seizures and detox Attending Provider: Kay Marley Primary Care Provider: Cesario Topete Consulting Providers: Rebecca Aviles Instructions Patient Instructions: ED Benzodiazepine Withdrawal Additional Instructions / Restrictions: -Your potassium has been persistently low, you will be discharged on 10 mill equivalents of potassium daily, this will likely not be a long-term medication. This was sent to your preferred pharmacy on file -Would recommend lab work (BMP) to check your potassium in 2 to 3 days through your primary care physician's office. Please call their office upon discharge to obtain order for lab work. They can further determine your need for more or less potassium supplementation moving forward f/u with [facility] for follow-up intensive outpatient treatment services on 05/07 @2:00pm. -Recommend avoiding driving until following up/discussion with your primary care physician given your xanax withdrawal seizures -Please call your primary care provider's office upon discharge to schedule a hospital follow up within 1 week. -For any concerning signs or symptoms please call 911 or proceed to the nearest emergency department Discharge Orders/Prescriptions Prescriptions: New potassium chloride 10 mEq Tablet,Er Particles/Crystals 10 meq PO DAILYCM 14 Days Qty: 14 0RF Continued propranolol 10 mg tablet 10 mg PO BID PRN (Reason: anxiety) valacyclovir 1 gram tablet 1,000 mg PO DAILY prazosin 1 mg capsule 1 mg PO QPM bupropion HCl 150 mg tablet extended release 24 hr 150 mg PO DAILY Rx Instructions: take one 150mg tablet and one 300mg tablet to equal 450mg dose bupropion HCl 300 mg tablet extended release 24 hr 300 mg PO DAILY Rx Instructions: take one 150mg tablet and one 300mg tablet to equal 450mg dose clobetasol 0.05 % cream 1 applic TOPICAL BID hydroxyzine pamoate 25 mg capsule 50 mg PO TID PRN (Reason: Anxiety) Held fluoxetine 20 MG capsule 80 mg PO DAILY Hold Instructions: Resume on 05/10/24. Until able to be resumed on outpatient basis Discontinued alprazolam 0.5 mg tablet 0.5 mg PO Q8H PRN (Reason: anxiety) Referrals / Follow Up: Cesario Topete MD [Primary Care Provider] - Within 1 Week Disposition Disposition (needs filled in before D/C Order can be placed): Home, Self Care Charges/Coding Visit Charges Inpatient E&M: 30073 Disch Hosp
[2024-05-05 13:43] VITALS: BP 128/88; PULSE 67; RESP 18; TEMP 36.6; O2SAT 99
== END 2024-05-05 14:35 | disposition home or self-care (01) | DRG 776 ==
LOC: ED 16:22 → MS3 16:25
PROVIDERS: Physician Assistant; Admitting Provider Internal Medicine; Emergency Provider Emergency Medicine; PCP Family Medicine; Referring Provider Emergency Medicine; Visit Provider Internal Medicine
DX: F13.139 Sedative, hypnotic or anxiolytic abuse with withdrawal, unspecified (principal); E87.6 Hypokalemia; F32.A Depression, unspecified; F41.9 Anxiety disorder, unspecified; Z79.899 Other long term (current) drug therapy
CPT/HCPCS: 36415; 70450; 80048; 80307; 81001; 82077; 83735; 84100; 84484; 84703; 85025; 90656; 93005; 94668; 97802; 99282; 99285; J7030; J7120; A4216